=== PATIENT | female | born 1975 | race Caucasian/White ===

== ENCOUNTER 2020-05-21 08:55 | Outpatient (REF) | payer MEDICAID, SELFPAY ==
--- NOTE | 2020-05-21 10:35 | XR_ITS ---
EXAMINATION: XR CHEST CLINICAL INFORMATION: Other specified abnormal immunologic old findings; R76.8 COMPARISON: Chest radiographs 04/10/2019 TECHNIQUE: 2 views of the chest were obtained. FINDINGS: There is no airspace consolidation or definite groundglass opacity. No pleural reaction or effusion. The costophrenic sulci are clear. The heart is normal in size. The vascularity is normal. The hilar and mediastinal contours are unremarkable. There is mild curvature thoracic spine. IMPRESSION: Lungs clear. No acute intrathoracic disease.
[2020-05-21 12:08] LABS: C Reactive Protein 3.49 mg/dL (< or = 0.50)
[2020-05-21 12:14] LABS: Glucose Urine UA NEG (NEG); Leukocyte Esterase Urine NEG (NEG); Nitrite Urine NEG (NEG); Urine Blood NEG (NEG); Urine Ketones NEG (NEG); Urine Protein NEG (NEG-TRACE)
[2020-05-21 12:16] LABS: Appearance Urine HAZY; Color Urine YELLOW
[2020-05-21 12:23] LABS: Erythrocyte Sedimentation Rate 44 MM/HR (0-20)
[2020-05-21 12:36] LABS: Bacteria Urine 4+ /LPF; RBC Urine 0 /HPF (0); Squamous Epithelial Cell Urine 3+ /LPF; WBC Urine 0-2 /HPF (0-4)
[2020-05-22 13:32] LABS: Complement C3 174 mg/dL (83-193)
[2020-05-22 21:32] LABS: Thyroid Peroxidase Antibodies <1 IU/mL (<9)
[2020-05-24 13:57] LABS: Anti DNA DS Antibody 1 IU/mL; Antibody to SS-A Antigen <1.0 NEG AI (<1.0 NEG); Antibody to SS-B Antigen <1.0 NEG AI (<1.0 NEG); Myeloperoxidase Antibody <1.0 AI; Proteinase 3 PR3 Antibodies <1.0 AI; SM/Ribonucleoprotein Ab <1.0 NEG AI (<1.0 NEG); Smith Protein <1.0 NEG AI (<1.0 NEG)
[2020-05-27 19:07] LABS: Thyroglobulin Antibodies <1 IU/mL (< or = 1)
== END 2020-05-21 08:56 | disposition home or self-care (01) ==
LOC: HO.LAB 08:55
PROVIDERS: PCP Internal Medicine; Referring Provider Internal Medicine; Visit Provider Student in an Organized Health Care Education/Training Program
DX: M31.0 Hypersensitivity angiitis (principal); M17.12 Unilateral primary osteoarthritis, left knee; R76.8 Other specified abnormal immunological findings in serum
CPT/HCPCS: 36415; 71046; 81001; 85652; 86021; 86140; 86160; 86225; 86235; 86376; 86800; 99214

== ENCOUNTER → 2020-05-30 13:00 | Outpatient (BNVA) | payer MEDICAID, SELFPAY | PROVIDERS: PCP Internal Medicine; Referring Provider Internal Medicine; Visit Provider Internal Medicine Endocrinology, Diabetes & Metabolism | DX: E28.2 Polycystic ovarian syndrome (principal); E66.9 Obesity, unspecified; E55.9 Vitamin D deficiency, unspecified | CPT/HCPCS: 99214 ==

== ENCOUNTER → 2020-06-05 13:16 | Outpatient (BNVA) | payer MEDICAID, SELFPAY | PROVIDERS: PCP Internal Medicine; Referring Provider Internal Medicine; Visit Provider Internal Medicine | DX: J45.909 Unspecified asthma, uncomplicated (principal); R07.9 Chest pain, unspecified; Z79.899 Other long term (current) drug therapy | CPT/HCPCS: 99212 ==

== ENCOUNTER 2020-06-06 12:52 | Outpatient (REF) | payer MEDICAID, SELFPAY ==
--- NOTE | 2020-06-06 13:43 | XR_ITS ---
EXAMINATION: XR CHEST CLINICAL INFORMATION: Chest pain. COMPARISON: None TECHNIQUE: 2 views of the chest were obtained. FINDINGS: No significant abnormality is noted involving the heart, lungs, mediastinum, bony thorax or soft tissues. XR/XR chest 2V IMPRESSION: Unremarkable chest examination.
[2020-06-06 14:32] LABS: Estimated Average Glucose 97 mg/dL
[2020-06-06 14:41] LABS: Alanine Aminotransferase 13 U/L (0-31); Albumin Level 4.2 g/dL (3.5-5.0); Alkaline Phosphatase 103 U/L (39-117); Anion Gap 14 (12-20); Aspartate Amino Transferase 16 U/L (5-31); Bilirubin Total 0.6 mg/dL (0.0-1.0); Blood Urea Nitrogen 16 mg/dL (9-16); Calcium 9.8 mg/dL (8.4-10.2); Carbon Dioxide 30 mmol/L (22-29); Chloride 97 mmol/L (96-108); Cholesterol 202 mg/dL; Estimated Glomerular Filt Rate > 60; Glucose Fasting 87 mg/dL (60-99); HDL Cholesterol 45 mg/dL; LDL Cholesterol Calculated 108 mg/dl; Potassium 3.8 mmol/l (3.3-5.1); Sodium 137 mmol/L (135-145); Total Protein 7.1 g/dL (6.5-8.0); Triglycerides 247 mg/dL
[2020-06-07 11:37] LABS: DHEA Sulfate 75 mcg/dL (19-231)
[2020-06-09 13:16] LABS: Insulin Level Total 12.9 uIU/mL
[2020-06-12 14:01] LABS: Testosterone, Free 1.1 pg/mL (0.1-6.4); Testosterone, Total 10 ng/dL (2-45)
== END 2020-06-06 12:53 | disposition home or self-care (01) ==
LOC: HO.LAB 12:52
PROVIDERS: Absent Provider Internal Medicine Endocrinology, Diabetes & Metabolism; PCP Internal Medicine; Referring Provider Internal Medicine; Visit Provider Student in an Organized Health Care Education/Training Program
DX: R07.9 Chest pain, unspecified (principal); E28.2 Polycystic ovarian syndrome; I77.6 Arteritis, unspecified; M31.0 Hypersensitivity angiitis; R76.8 Other specified abnormal immunological findings in serum
CPT/HCPCS: 71046; 80053; 80061; 82627; 83036; 83525; 84402; 84403; 99212

== ENCOUNTER → 2020-09-03 13:30 | Outpatient (BNVA) | payer MEDICAID, SELFPAY | PROVIDERS: PCP Internal Medicine; Visit Provider Internal Medicine | DX: Z76.89 Persons encountering health services in other specified circumstances (principal) ==

== ENCOUNTER 2020-09-20 10:04 | Outpatient (REF) | payer MEDICAID, SELFPAY ==
[2020-09-20 10:45] LABS: MANUAL DIFF FLAG NO
[2020-09-20 10:46] LABS: Basophils Absolute Auto 0.1 X10*3/uL (0.0-0.2); Basophils Percent Auto 0.6 % (0-2); Eosinophils Absolute Auto 0.3 X10*3/uL (0.0-0.4); Eosinophils Percent Auto 2.3 % (0-4); Hematocrit 37.5 % (37-47); Hemoglobin 12.2 g/dl (12.0-16.0); Imm Gran Abs Auto 0.07 X10*3/uL (0.00-0.03); Imm Gran Pct Auto 0.5 % (0.0-0.4); Lymphocytes Absolute Auto 1.8 X10*3/uL (1.2-4.9); Mean Corpuscular HGB Conc 32.5 g/dl (31.0-35.0); Mean Platelet Volume 9.5 fL (9.4-12.3); Monocytes Absolute Auto 0.8 X10*3/uL (0.1-1.2); Monocytes Percent Auto 6.6 % (2-11); Neutrophils Absolute Auto 9.8 X10*3/uL (2.0-8.3); Platelet Count 383 X10*3/uL (160-400); Red Blood Count 4.36 X10*6/uL (4.20-5.50); Red Cell Distribution Width 15.1 % (11.0-16.0); White Blood Count 12.8 X10*3/uL (4.8-10.8)
[2020-09-20 10:53] LABS: Glucose Urine UA NEG (NEG); Leukocyte Esterase Urine NEG (NEG); Nitrite Urine NEG (NEG); Specific Gravity - Urine 1.025 (1.005-1.025); Urine Blood NEG (NEG); Urine Ketones NEG (NEG); Urine Protein NEG (NEG-TRACE)
[2020-09-20 10:54] LABS: Appearance Urine CLOUDY; Color Urine YELLOW
[2020-09-20 11:08] LABS: Alanine Aminotransferase 9 U/L (0-31); Albumin Level 4.2 g/dL (3.5-5.0); Alkaline Phosphatase 100 U/L (39-117); Anion Gap 14 (12-20); Aspartate Amino Transferase 13 U/L (5-31); Bilirubin Total 0.6 mg/dL (0.0-1.0); Blood Urea Nitrogen 23 mg/dL (9-16); C Reactive Protein 2.53 mg/dL (< or = 0.50); Calcium 9.3 mg/dL (8.4-10.2); Carbon Dioxide 31 mmol/L (22-29); Chloride 98 mmol/L (96-108); Estimated Glomerular Filt Rate > 60; Glucose Random 84 mg/dL (60-115); Potassium 3.5 mmol/L (3.3-5.1); Sodium 139 mmol/L (135-145); Total Protein 7.2 g/dL (6.5-8.0)
[2020-09-20 11:28] LABS: Erythrocyte Sedimentation Rate 40 MM/HR (0-20)
[2020-09-23 01:01] LABS: C. trachomatis RNA TMA NOT DETECTED (NOT DETECTED); N. gonorrhoeae RNA TMA NOT DETECTED (NOT DETECTED)
== END 2020-09-20 10:05 | disposition home or self-care (01) ==
LOC: HO.LAB 10:04
PROVIDERS: Absent Provider Student in an Organized Health Care Education/Training Program; PCP Internal Medicine; Visit Provider Nurse Practitioner Family
DX: M31.0 Hypersensitivity angiitis (principal); R30.0 Dysuria
CPT/HCPCS: 36415; 80053; 81003; 85025; 85652; 86140; 87491; 87591

== ENCOUNTER → 2020-10-28 15:54 | Outpatient (BNVA) | payer MEDICAID, SELFPAY | PROVIDERS: PCP Internal Medicine; Visit Provider Student in an Organized Health Care Education/Training Program | DX: M31.0 Hypersensitivity angiitis (principal); M54.9 Dorsalgia, unspecified; R76.8 Other specified abnormal immunological findings in serum | CPT/HCPCS: 99212 ==

== ENCOUNTER 2020-11-07 15:04 | Outpatient (REF) | payer MEDICAID, SELFPAY ==
--- NOTE | ~2020-11-07 | XR_ITS ---
EXAMINATION: LUMBAR AND THORACIC SPINE. CLINICAL INFORMATION: Dorsalis upper COMPARISON: None TECHNIQUE: 3 views thoracic spine. 3 views lumbar spine. FINDINGS: DORSAL SPINE: There is normal thoracic kyphosis. There is minimal levoscoliosis of mid to lower dorsal spine. The vertebral heights, alignment and disc heights are normal. No visible acute fracture, dislocation or lytic process seen. The paravertebral soft tissues are normal. LUMBAR SPINE: There is normal lumbar lordosis. The vertebral heights, alignment and disc heights are normal. No visible acute fracture, dislocation or lytic process seen. The soft tissues are unremarkable. The SI joints are symmetrical and normal. XR/XR thoracic spine 2V IMPRESSION: Unremarkable lumbar spine exam. Minimal levoscoliosis mid to lower dorsal spine.
--- NOTE | ~2020-11-07 | XR_ITS ---
EXAMINATION: LUMBAR AND THORACIC SPINE. CLINICAL INFORMATION: Dorsalis upper COMPARISON: None TECHNIQUE: 3 views thoracic spine. 3 views lumbar spine. FINDINGS: DORSAL SPINE: There is normal thoracic kyphosis. There is minimal levoscoliosis of mid to lower dorsal spine. The vertebral heights, alignment and disc heights are normal. No visible acute fracture, dislocation or lytic process seen. The paravertebral soft tissues are normal. LUMBAR SPINE: There is normal lumbar lordosis. The vertebral heights, alignment and disc heights are normal. No visible acute fracture, dislocation or lytic process seen. The soft tissues are unremarkable. The SI joints are symmetrical and normal. XR/XR lumbar spine 2-3V IMPRESSION: Unremarkable lumbar spine exam. Minimal levoscoliosis mid to lower dorsal spine.
--- NOTE | ~2020-11-07 | US_ITS ---
EXAMINATION: US RETROPERITONEAL LIMITED (RENAL ONLY) CLINICAL INFORMATION: Dorsalgia, unspecified. COMPARISON: CT abdomen and pelvis without with contrast dated 07/20/2019. Ultrasound abdomen complete dated 07/16/2015. TECHNIQUE: Real-time imaging of the kidneys. FINDINGS: RIGHT KIDNEY: 9.0 x 4.5 x 4.6 cm (SAG x AP x TRV). The kidney is normal in size, contour, and echogenicity. Renal cortical thickness is normal. No calculi or focal parenchymal lesions. No hydronephrosis. LEFT KIDNEY: 9.9 x 4.5 x 4.7 cm (SAG x AP x TRV). The kidney is normal in size, contour, and echogenicity. Renal cortical thickness is normal. No calculi or focal parenchymal lesions. No hydronephrosis. US/US renal BI IMPRESSION: Normal kidneys.
[2020-11-07 17:51] LABS: MANUAL DIFF FLAG NO
[2020-11-07 17:53] LABS: Basophils Absolute Auto 0.1 X10*3/uL (0.0-0.2); Basophils Percent Auto 0.6 % (0-2); Eosinophils Absolute Auto 0.2 X10*3/uL (0.0-0.4); Eosinophils Percent Auto 2.2 % (0-4); Hematocrit 36.2 % (37-47); Hemoglobin 11.7 g/dl (12.0-16.0); Imm Gran Abs Auto 0.07 X10*3/uL (0.00-0.03); Imm Gran Pct Auto 0.6 % (0.0-0.4); Lymphocytes Absolute Auto 2.2 X10*3/uL (1.2-4.9); Lymphocytes Percent Auto 20.3 % (20-40); Mean Corpuscular HGB Conc 32.3 g/dl (31.0-35.0); Mean Corpuscular Hemoglobin 27.9 pg (27.0-33.0); Mean Corpuscular Volume 86.4 fL (80-98); Mean Platelet Volume 9.8 fL (9.4-12.3); Monocytes Absolute Auto 0.8 X10*3/uL (0.1-1.2); Monocytes Percent Auto 7.1 % (2-11); Neutrophils Absolute Auto 7.5 X10*3/uL (2.0-8.3); Neutrophils Percent Auto 69.2 % (45-73); Platelet Count 388 X10*3/uL (160-400); Red Blood Count 4.19 X10*6/uL (4.20-5.50); Red Cell Distribution Width 14.9 % (11.0-16.0); White Blood Count 10.9 X10*3/uL (4.8-10.8)
[2020-11-07 18:14] LABS: Glucose Urine UA NEG (NEG); Leukocyte Esterase Urine NEG (NEG); Nitrite Urine NEG (NEG); PH 6.5 (5.0-8.0); Urine Blood NEG (NEG); Urine Ketones NEG (NEG); Urine Protein NEG (NEG-TRACE)
[2020-11-07 18:20] LABS: Alanine Aminotransferase 12 U/L (0-31); Albumin Level 4.2 g/dL (3.5-5.0); Alkaline Phosphatase 98 U/L (39-117); Anion Gap 13 (12-20); Aspartate Amino Transferase 12 U/L (5-31); Bilirubin Total 0.5 mg/dL (0.0-1.0); Blood Urea Nitrogen 19 mg/dL (9-16); C Reactive Protein 2.24 mg/dL (< or = 0.50); Calcium 9.2 mg/dL (8.4-10.2); Carbon Dioxide 33 mmol/L (22-29); Chloride 97 mmol/L (96-108); Estimated Glomerular Filt Rate > 60; Glucose Random 78 mg/dL (60-115); Potassium 3.8 mmol/L (3.3-5.1); Sodium 139 mmol/L (135-145); Total Protein 7.4 g/dL (6.5-8.0)
[2020-11-07 18:30] LABS: Appearance Urine CLEAR; Color Urine YELLOW
[2020-11-07 18:32] LABS: Bacteria Urine 3+ /LPF; RBC Urine 0 /HPF (0); Squamous Epithelial Cell Urine 3+ /LPF
[2020-11-07 18:38] LABS: Erythrocyte Sedimentation Rate 60 MM/HR (0-20)
== END 2020-11-07 15:05 | disposition home or self-care (01) ==
LOC: HO.US 15:04
PROVIDERS: PCP Internal Medicine; Visit Provider Student in an Organized Health Care Education/Training Program
DX: M54.9 Dorsalgia, unspecified (principal); M31.0 Hypersensitivity angiitis
CPT/HCPCS: 36415; 72070; 72100; 76775; 80053; 81001; 85025; 85652; 86140

== ENCOUNTER → 2020-11-28 12:39 | Outpatient (BNVA) | payer MEDICAID, SELFPAY | PROVIDERS: PCP Internal Medicine; Visit Provider Internal Medicine Endocrinology, Diabetes & Metabolism | DX: E28.2 Polycystic ovarian syndrome (principal); E55.9 Vitamin D deficiency, unspecified; E66.01 Morbid (severe) obesity due to excess calories | CPT/HCPCS: 99212 ==

== ENCOUNTER 2020-12-25 19:19 | Emergency (ER) | payer MEDICAID, SELFPAY ==
[2020-12-25 19:37] VITALS: BP 100/44; PULSE 95; RESP 16; TEMP 37; O2SAT 100; BMI 43.4
[2020-12-25 20:52] VITALS: BP 128/53; PULSE 89; RESP 18; TEMP 37.4; O2SAT 99
--- NOTE | 2020-12-25 21:49 | PC.NURSE ---
COVID AND STREP SWABS OBTAINED AND SENT TO LAB FOR PROCESSING. PT GIVEN ICE CHIPS PER REQUEST. RESTING IN BED SKIN PWD RESPIRATIONS EVEN UNLABORED WITH SPORADIC PRODUCTIVE COUGH, AWAITING RESULTS.
[2020-12-25 22:06] LABS: IDNOW Serial# 9DD0AD1C; Strep A Nucleic Acid Negative (Negative)
[2020-12-25 22:07] LABS: COVID-19 Test Negative (Negative)
--- NOTE | 2020-12-25 22:38 | ED.GENADULT ---
HPI - General Adult General Chief complaint: General Medical Stated complaint: Sore throat/Body aches Time Seen by Provider: 12/25/20 21:14 Source: patient Mode of arrival: ambulatory History of Present Illness HPI narrative: 45-year-old female with history of asthma presents with worsening nasal congestion with sore throat and cough without associated fevers, chills, GI or symptoms. Patient denies any shortness of breath, chest pain/palpitations. She states that she uses Claritin and Zyrtec daily and uses a combination of Atrovent/Flovent/Spiriva. Related Data Home Medications Medication Instructions Recorded Confirmed acetaminophen 650 mg 1,300 mg PO Q12H 05/21/20 11/28/20 tablet,extended release cetirizine 10 mg tablet 10 mg PO DAILY 05/21/20 11/28/20 clonidine HCl 0.1 mg tablet 0.1 mg PO BEDTIME 05/21/20 11/28/20 cyclobenzaprine 10 mg tablet 10 mg PO TID 05/21/20 11/28/20 hydrochlorothiazide 25 mg tablet 25 mg PO DAILY 05/21/20 11/28/20 paroxetine HCl 40 mg tablet 40 mg PO DAILY 05/21/20 11/28/20 tiotropium bromide 2.5 2 puff INHALATION DAILY 05/21/20 11/28/20 mcg/actuation mist for inhalation valacyclovir 1 gram tablet 1,000 mg PO DAILY 05/21/20 11/28/20 zolpidem 10 mg tablet 10 mg PO BEDTIME PRN 05/21/20 11/28/20 losartan 50 mg tablet 50 mg PO DAILY 05/30/20 11/28/20 topiramate 25 mg tablet 25 mg PO DAILY 05/30/20 11/28/20 loratadine 10 mg capsule 10 mg PO DAILY 06/05/20 11/28/20 oxycodone 5 mg tablet 5 mg PO Q6H PRN 06/05/20 11/28/20 ipratropium bromide 17 2 puff INHALATION ONCE g 09/03/20 11/28/20 mcg/actuation HFA aerosol inhaler Previous Rx's Medication Instructions Recorded fluticasone propionate 110 2 puff INHALATION BID 30 Days #12 g 06/05/20 mcg/actuation HFA aerosol inhaler oxybutynin chloride 15 mg 15 mg PO DAILY #28 tab 07/23/20 tablet,extended release 24 hr gabapentin 400 mg capsule 400 mg PO DAILY #28 cap 10/15/20 cholecalciferol (vitamin D3) 50 50 mcg PO DAILY 30 Days #30 cap 10/16/20 mcg (2,000 unit) capsule montelukast 10 mg tablet 10 mg PO DAILY #30 tab 11/13/20 prednisone 10 mg tablet See Rx Instructions PO DAILY #50 11/26/20 tab liraglutide (weight loss) 3 mg/0.5 3 mg SUBCUT DAILY 30 Days #15 ml 11/28/20 mL (18 mg/3 mL) subcut pen injector pen needle, diabetic 32 gauge x #50 ea 11/28/20 pen needle, diabetic 32 gauge x #50 ea 11/28/20 prednisone 40 mg PO DAILY 4 Days #8 tab 12/25/20 Allergies Allergy/AdvReac Type Severity Reaction Status Date / Time albuterol Allergy Intermediate swelling Verified 10/28/20 15:59 tramadol Allergy Intermediate swelling Verified 10/28/20 15:59 buspirone [From BuSpar] Allergy Mild rash Verified 10/28/20 15:59 lamotrigine [From Lamictal] Allergy Mild Unknown Verified 10/28/20 15:59 naproxen Allergy Unknown anaphylaxis Verified 10/28/20 15:59 NSAIDS (Non-Steroidal Allergy Unknown ANAPHYLAXIS Verified 10/28/20 15:59 Anti-Inflamma [NSAIDS (NON-STEROIDAL ANTI-INFLAMMA] Penicillins [PENICILLINS] Allergy Unknown ANAPHYLAXIS Verified 10/28/20 15:59 Review of Systems Review of Systems: Pertinent positives and negatives as stated in HPI 10 point review of systems is otherwise negative. [facility] Past Medical History Source: nursing notes reviewed Medical History Allergic rhinitis Asthma Cough Morbid obesity Obesity (BMI 30-39.9) PCOS (polycystic ovarian syndrome) Vitamin D deficiency Surgical History History of bladder surgery Hx laparoscopic cholecystectomy Hx of section Hx of dilation and curettage Hx of hysterectomy Hx of tooth extraction Family History Family History Father Heart disease Mother Diabetes mellitus Raynaud disease Paternal Grandfather Diabetes mellitus Paternal Uncle Diabetes mellitus Social History Social History Household Members: Family Housing: House Alcohol intake: never Smoking Status: Never smoker Second Hand Smoke Exposure: No Use of substances other than those prescribed or required for medical reasons: No Advance Directives: No Advance Directives Information Provided: No Patient : No Physical Exam Vital Signs: Vital Signs: Last Vital Signs Temp 99.4 F 12/25/20 20:52 Pulse 89 12/25/20 20:52 Resp 18 12/25/20 20:52 BP 128/53 L 12/25/20 20:52 Pulse Ox 99 12/25/20 20:52 Body Mass Index 43.4 VITAL SIGNS: Reviewed. GENERAL: Well developed, well nourished, in no acute distress. HEAD: Normocephalic/atraumatic EYES: PERRLA, EOMI EARS: Ext canals without abnormality, TMs mild bulging and non-erythematous NOSE: Nares patent bilateral OROPHARYNX: no oral lesions noted, posterior pharynx clear and non-erythematous without noted tonsillar enlargement/erythema/exudates NECK: Supple, no adenopathy LUNGS: Mild expiratory wheeze, otherwise good inspiratory effort, no tachypnea SpO2<99> CARDIOVASCULAR: Regular rate and rhythm without noted murmurs ABDOMEN: Soft, non-tender, non-distended with bowel sounds. Course Course Course Narrative: 45-year-old female with history and clinical presentation most consistent with allergic rhinitis and subsequent postnasal drip with cough. Review of rapid strep and COVID-19 are negative and patient will be treated with a short course of steroids with initial dose given here in the emergency room. Also recommended that patient initiate Flonase in conjunction with her Claritin. Patient is allergic to albuterol and Atrovent is not available for ordering. Medical Decision Making Lab Data Labs: Lab Results 12/25/20 12/25/20 Range/Units 21:44 21:44 COVID-19 (NICOLE) Negative (Negative) COVID-19 Clin Com See Note S. pyogenes GrpA PALOMA Negative (Negative) Discharge Plan Discharge Clinical Impression: Asthma Patient Disposition: Home, Self-Care Instructions: Asthma (ED), Allergies (ED), Postnasal Drip (DC) Additional Instructions: 1. Please resume all home medications as prescribed. 2. Please follow-up with your primary care provider in the next 2-3 days for re-evaluation. Return to the emergency room for any acute worsening of your symptoms. Prescriptions: New prednisone 20 mg tablet 40 mg PO DAILY 4 Days Qty: 8 RF: 0 No Action oxybutynin chloride 15 mg tablet extended release 24hr 15 mg PO DAILY Qty: 28 RF: 6 gabapentin 400 mg capsule 400 mg PO DAILY Qty: 28 RF: 6 cholecalciferol (vitamin D3) 50 mcg (2,000 unit) capsule 50 mcg PO DAILY 30 Days Qty: 30 RF: 3 montelukast [Singulair] 10 mg tablet 10 mg PO DAILY Qty: 30 RF: 3 prednisone 10 mg tablet See Rx Instructions PO DAILY Qty: 50 RF: 0 topiramate [Topamax] 25 mg tablet 25 mg PO DAILY RF: 0 losartan 50 mg tablet 50 mg PO DAILY RF: 0 oxycodone 5 mg tablet 5 mg PO Q6H PRNRF: 0 loratadine 10 mg capsule 10 mg PO DAILY RF: 0 Flovent HFA 110 mcg/actuation HFA aerosol inhaler 2 puff inhalation BID 30 Days Qty: 12 RF: 5 (DME) pen needle, diabetic [BD Yesy 2nd Gen Pen Needle] 32 gauge x 5/32 needle See Rx Instructions .MEDSUPPLY Qty: 50 RF: 4 (DME) pen needle, diabetic [BD Yesy 2nd Gen Pen Needle] 32 gauge x 5/32 needle See Rx Instructions .MEDSUPPLY Qty: 50 RF: 4 Saxenda 3 mg/0.5 mL (18 mg/3 mL) pen injector 3 mg subcut DAILY 30 Days Qty: 15 RF: 6 Spiriva Respimat 2.5 mcg/actuation mist 2 puff inhalation DAILY RF: 0 cetirizine [Zyrtec] 10 mg tablet 10 mg PO DAILY RF: 0 paroxetine HCl [Paxil] 40 mg tablet 40 mg PO DAILY RF: 0 acetaminophen [Tylenol 8 Hour] 650 mg tablet extended release 1,300 mg PO Q12H RF: 0 clonidine HCl 0.1 mg tablet 0.1 mg PO BEDTIME RF: 0 zolpidem 10 mg tablet 10 mg PO BEDTIME PRNRF: 0 hydrochlorothiazide 25 mg tablet 25 mg PO DAILY RF: 0 cyclobenzaprine 10 mg tablet 10 mg PO TID RF: 0 valacyclovir [Valtrex] 1 gram tablet 1,000 mg PO DAILY RF: 0 Atrovent HFA 17 mcg/actuation HFA aerosol inhaler 2 puff inhalation ONCE RF: 0 Referrals: Aaron Carcamo MD [Primary Care Provider] - 2 days (Re-evaluation)
[2020-12-25] MEDS: predniSONE 10 MG TABLET 50 MG PO (23:36)
== END 2020-12-26 00:17 | disposition home or self-care (01) ==
PROVIDERS: Emergency Provider Student in an Organized Health Care Education/Training Program; PCP Internal Medicine
DX: J45.909 Unspecified asthma, uncomplicated (principal); Z20.822 Contact with and (suspected) exposure to COVID-19; J02.9 Acute pharyngitis, unspecified
CPT/HCPCS: 36415; 87635; 87651; 99284

== ENCOUNTER 2021-01-24 13:51 | Emergency (ER) | payer MEDICAID, SELFPAY ==
[2021-01-24 14:31] VITALS: BP 117/62; PULSE 96; RESP 16; TEMP 37; O2SAT 97; BMI 42.4
--- NOTE | 2021-01-24 16:27 | ED_ITS ---
HPI - Abdominal Pain General Chief Complaint: Abdominal Pain Stated Complaint: pain radiating from abd to back Time Seen by Provider: 01/24/21 16:27 Source: patient Mode of arrival: ambulatory Limitations: no limitations History of Present Illness HPI narrative: Patient has chronic back pain overweight with BMI of 42.4 on chronic pain management Percocet and Flexeril while at work patient lifted heavy container 2 days ago and since then complaining of increased pain the lower back and in the lower abdomen also no nausea no vomiting no diarrhea no urinary symptoms no fever chills no focal neurological deficit no numbness or tingling no urinary complaints, patient ambulatory Related Data Home Medications Medication Instructions Recorded Confirmed acetaminophen 650 mg 1,300 mg PO Q12H 05/21/20 11/28/20 tablet,extended release cetirizine 10 mg tablet 10 mg PO DAILY 05/21/20 11/28/20 clonidine HCl 0.1 mg tablet 0.1 mg PO BEDTIME 05/21/20 11/28/20 cyclobenzaprine 10 mg tablet 10 mg PO TID 05/21/20 11/28/20 hydrochlorothiazide 25 mg tablet 25 mg PO DAILY 05/21/20 11/28/20 paroxetine HCl 40 mg tablet 40 mg PO DAILY 05/21/20 11/28/20 valacyclovir 1 gram tablet 1,000 mg PO DAILY 05/21/20 11/28/20 zolpidem 10 mg tablet 10 mg PO BEDTIME PRN 05/21/20 11/28/20 losartan 50 mg tablet 50 mg PO DAILY 05/30/20 11/28/20 topiramate 25 mg tablet 25 mg PO DAILY 05/30/20 11/28/20 loratadine 10 mg capsule 10 mg PO DAILY 06/05/20 11/28/20 oxycodone 5 mg tablet 5 mg PO Q6H PRN 06/05/20 11/28/20 Previous Rx's Medication Instructions Recorded fluticasone propionate 110 2 puff INHALATION BID 30 Days #12 g 06/05/20 mcg/actuation HFA aerosol inhaler oxybutynin chloride 15 mg 15 mg PO DAILY #28 tab 07/23/20 tablet,extended release 24 hr gabapentin 400 mg capsule 400 mg PO DAILY #28 cap 10/15/20 cholecalciferol (vitamin D3) 50 50 mcg PO DAILY 30 Days #30 cap 10/16/20 mcg (2,000 unit) capsule montelukast 10 mg tablet 10 mg PO DAILY #30 tab 11/13/20 prednisone 10 mg tablet See Rx Instructions PO DAILY #50 11/26/20 tab liraglutide (weight loss) 3 mg/0.5 3 mg SUBCUT DAILY 30 Days #15 ml 11/28/20 mL (18 mg/3 mL) subcut pen injector pen needle, diabetic 32 gauge x #50 ea 11/28/20 pen needle, diabetic 32 gauge x #50 ea 11/28/20 5/32 prednisone 40 mg PO DAILY 4 Days #8 tab 12/25/20 tiotropium bromide 2.5 1 puff PO BID #4 g 12/26/20 mcg/actuation mist for inhalation ipratropium bromide 17 2 puff PO TID #12.9 g 12/27/20 mcg/actuation HFA aerosol inhaler carisoprodol [Soma] 350 mg PO TID PRN #20 tab 01/24/21 Allergies Allergy/AdvReac Type Severity Reaction Status Date / Time albuterol Allergy Intermediate swelling Verified 10/28/20 15:59 tramadol Allergy Intermediate swelling Verified 10/28/20 15:59 buspirone [From BuSpar] Allergy Mild rash Verified 10/28/20 15:59 lamotrigine [From Lamictal] Allergy Mild Unknown Verified 10/28/20 15:59 naproxen Allergy Unknown anaphylaxis Verified 10/28/20 15:59 NSAIDS (Non-Steroidal Allergy Unknown ANAPHYLAXIS Verified 10/28/20 15:59 Anti-Inflamma [NSAIDS (NON-STEROIDAL ANTI-INFLAMMA] Penicillins [PENICILLINS] Allergy Unknown ANAPHYLAXIS Verified 10/28/20 15:59 Review of Systems Review of Systems Yes all other systems are reviewed and are negative Physical Exam Vital Signs: Vital Signs: Last Vital Signs Temp 98.6 F 01/24/21 14:31 Pulse 96 01/24/21 14:31 Resp 16 01/24/21 14:31 BP 117/62 01/24/21 14:31 Pulse Ox 97 01/24/21 14:31 Body Mass Index 42.4 Appearance: Alert. Oriented X3. No acute distress. Obese Eyes: PERRLA, No Nystagmus ENT: Pharynx normal. Oral Mucosa moist Neck: Normal inspection. Neck supple. CVS: Normal heart rate and rhythm. Pulses normal. Respiratory: No respiratory distress. Equal air entry bilateral, no wheezing/rales/rhonchi Abdomen: Soft and nontender. Bowel sounds are present, no mass palpable, no CVA tenderness Skin: Skin warm and dry. Normal skin color. Normal skin turgor. Extremities: No lower extremity edema. No calf tenderness diffuse tenderness in lumbar paraspinal area no focal spinal tenderness a SLR negative bilateral Neuro: Oriented X 3. No motor deficit. No sensory deficit.No cerebellar signs , cranial nerves II-XII intact MDM - Abdominal Pain MDM Narrative Medical decision making narrative: Patient with chronic back pain with BMI of 42 already on Percocet and Flexeril will give Soma advised her to follow with her PCP and advised weight reduction plan Discharge Plan Discharge Clinical Impression: Back pain Qualifiers: Back pain location: low back pain Chronicity: chronic Back pain laterality: bilateral Sciatica presence: without sciatica Qualified Code(s): M54.5 - Low back pain Patient Disposition: Home, Self-Care Instructions: Chronic Back Pain (DC) Additional Instructions: take Pain medication as prescribed along with medication prescribed by her PCP and follow-up with environmental services specialist Prescriptions: New carisoprodol [Soma] 350 mg tablet 350 mg PO TID PRN (Reason: muscle pain) Qty: 20 RF: 0 No Action oxybutynin chloride 15 mg tablet extended release 24hr 15 mg PO DAILY Qty: 28 RF: 6 gabapentin 400 mg capsule 400 mg PO DAILY Qty: 28 RF: 6 cholecalciferol (vitamin D3) 50 mcg (2,000 unit) capsule 50 mcg PO DAILY 30 Days Qty: 30 RF: 3 montelukast [Singulair] 10 mg tablet 10 mg PO DAILY Qty: 30 RF: 3 prednisone 10 mg tablet See Rx Instructions PO DAILY Qty: 50 RF: 0 tiotropium bromide [Spiriva Respimat] 2.5 mcg/actuation mist 1 puff PO BID Qty: 4 RF: 3 ipratropium bromide [Atrovent HFA] 17 mcg/actuation HFA aerosol inhaler 2 puff PO TID Qty: 12.9 RF: 6 prednisone 20 mg tablet 40 mg PO DAILY 4 Days Qty: 8 RF: 0 topiramate [Topamax] 25 mg tablet 25 mg PO DAILY RF: 0 losartan 50 mg tablet 50 mg PO DAILY RF: 0 oxycodone 5 mg tablet 5 mg PO Q6H PRNRF: 0 loratadine 10 mg capsule 10 mg PO DAILY RF: 0 Flovent HFA 110 mcg/actuation HFA aerosol inhaler 2 puff inhalation BID 30 Days Qty: 12 RF: 5 (DME) pen needle, diabetic [BD Yesy 2nd Gen Pen Needle] 32 gauge x 5/32 needle See Rx Instructions .MEDSUPPLY Qty: 50 RF: 4 (DME) pen needle, diabetic [BD Yesy 2nd Gen Pen Needle] 32 gauge x 5/32 needle See Rx Instructions .MEDSUPPLY Qty: 50 RF: 4 Saxenda 3 mg/0.5 mL (18 mg/3 mL) pen injector 3 mg subcut DAILY 30 Days Qty: 15 RF: 6 cetirizine [Zyrtec] 10 mg tablet 10 mg PO DAILY RF: 0 paroxetine HCl [Paxil] 40 mg tablet 40 mg PO DAILY RF: 0 acetaminophen [Tylenol 8 Hour] 650 mg tablet extended release 1,300 mg PO Q12H RF: 0 clonidine HCl 0.1 mg tablet 0.1 mg PO BEDTIME RF: 0 zolpidem 10 mg tablet 10 mg PO BEDTIME PRNRF: 0 hydrochlorothiazide 25 mg tablet 25 mg PO DAILY RF: 0 cyclobenzaprine 10 mg tablet 10 mg PO TID RF: 0 valacyclovir [Valtrex] 1 gram tablet 1,000 mg PO DAILY RF: 0 Interventions: ED Discharge Assessment Last Done: 01/24/21 16:54 Discharge Date/Time: 01/24/21 16:54 [facility] Past Medical History Medical History Allergic rhinitis Asthma Cough Morbid obesity Obesity (BMI 30-39.9) PCOS (polycystic ovarian syndrome) Vitamin D deficiency Surgical History History of bladder surgery Hx laparoscopic cholecystectomy Hx of section Hx of dilation and curettage Hx of hysterectomy Hx of tooth extraction Family History Family History Father Heart disease Mother Diabetes mellitus Raynaud disease Paternal Grandfather Diabetes mellitus Paternal Uncle Diabetes mellitus Social History Social History Household Members: Family Housing: House Alcohol intake: never Second Hand Smoke Exposure: No Advance Directives: No Advance Directives Information Provided: Yes Patient : No
== END 2021-01-24 16:54 | disposition home or self-care (01) ==
PROVIDERS: Emergency Provider Internal Medicine; PCP Internal Medicine
DX: G89.29 Other chronic pain (principal); M54.5 Low back pain; E66.3 Overweight; Z68.42 Body mass index [BMI] 45.0-49.9, adult
CPT/HCPCS: 99283

== ENCOUNTER → 2021-02-03 15:47 | Outpatient (BNVA) | payer MEDICAID, SELFPAY | PROVIDERS: PCP Internal Medicine; Visit Provider Student in an Organized Health Care Education/Training Program | DX: M31.0 Hypersensitivity angiitis (principal); M54.5 Low back pain; G89.29 Other chronic pain | CPT/HCPCS: 99212 ==

== ENCOUNTER 2021-02-04 16:26 | Emergency (ER) | payer MEDICAID, SELFPAY ==
--- NOTE | ~2021-02-04 | CT_ITS ---
EXAMINATION: CT ABDOMEN AND PELVIS WITH CONTRAST CLINICAL INFORMATION: Abdominal pain. Distention. COMPARISON: CT scan pelvis July 20, 2019 TECHNIQUE: Multidetector volumetric images were obtained from the superior aspect of the liver through the pubic symphysis following administration 85 mL of Omnipaque 350 intravenous contrast. Sagittal and coronal reformatted images were obtained on the technologist's workstation. Oral contrast: No This CT examination was performed using dose optimization techniques as appropriate, variously including the following: *Automated exposure control *Adjustment of mA and/or kV according to patient size (this includes techniques or standardized protocols for targeted exams where dose is matched to indication/reason for exam; i.e. extremities or head) *Use of iterative reconstruction technique DLP: 794 mGy-cm FINDINGS: LUNG BASES: The visualized lung bases are unremarkable. LIVER, GALLBLADDER, AND BILIARY TREE: The liver is normal in size, shape, and attenuation. No focal hepatic lesion or biliary ductal dilatation is present. Status post cholecystectomy. PANCREAS: Unremarkable. SPLEEN: Unremarkable. ADRENAL GLANDS: Unremarkable. KIDNEYS AND URETERS: The kidneys are normal in size, shape, and attenuation. No hydronephrosis, hydroureter, or calculi seen. No perinephric stranding. BLADDER: Unremarkable. GASTROINTESTINAL TRACT: There are scattered flocculated dense contrast opacities in the stomach and proximal small bowel loops. No acute change of the bowel. No bowel obstruction. No bowel wall thickening or edema. Moderate volume of stool throughout the colon. The appendix is normal. ABDOMINAL WALL: Fat-containing umbilical hernia measuring 2.5 cm transverse. LYMPH NODES: Normal. VASCULAR: Unremarkable. PELVIC VISCERA: Status post hysterectomy. OSSEOUS STRUCTURES: Unremarkable. CT/CT abdomen pelvis w con IMPRESSION: No acute abnormality CT scan abdomen and pelvis.
[2021-02-04 17:08] VITALS: BP 120/60; PULSE 80; RESP 18; TEMP 36.5; O2SAT 98; BMI 42.4
[2021-02-04 17:42] LABS: MANUAL DIFF FLAG NO
[2021-02-04 17:44] LABS: Glucose Urine UA NEG (NEG); Leukocyte Esterase Urine NEG (NEG); Nitrite Urine NEG (NEG); Specific Gravity - Urine 1.025 (1.005-1.025); Urine Blood NEG (NEG); Urine Ketones NEG (NEG); Urine Protein NEG (NEG-TRACE)
[2021-02-04 17:47] LABS: Appearance Urine CLEAR; Color Urine YELLOW
[2021-02-04 17:57] LABS: Basophils Absolute Auto 0.1 X10*3/uL (0.0-0.2); Basophils Percent Auto 0.9 % (0-2); Eosinophils Absolute Auto 0.3 X10*3/uL (0.0-0.4); Eosinophils Percent Auto 1.7 % (0-4); Hematocrit 35.8 % (37-47); Hemoglobin 11.9 g/dl (12.0-16.0); Imm Gran Abs Auto 0.08 X10*3/uL (0.00-0.03); Imm Gran Pct Auto 0.5 % (0.0-0.4); Lymphocytes Absolute Auto 2.6 X10*3/uL (1.2-4.9); Lymphocytes Percent Auto 15.8 % (20-40); Mean Corpuscular HGB Conc 33.2 g/dl (31.0-35.0); Mean Corpuscular Hemoglobin 28.2 pg (27.0-33.0); Mean Corpuscular Volume 84.8 fL (80-98); Mean Platelet Volume 9.7 fL (9.4-12.3); Monocytes Absolute Auto 1.2 X10*3/uL (0.1-1.2); Monocytes Percent Auto 7.3 % (2-11); Neutrophils Absolute Auto 11.9 X10*3/uL (2.0-8.3); Neutrophils Percent Auto 73.8 % (45-73); Platelet Count 411 X10*3/uL (160-400); Red Blood Count 4.22 X10*6/uL (4.20-5.50); Red Cell Distribution Width 15.6 % (11.0-16.0); White Blood Count 16.1 X10*3/uL (4.8-10.8)
[2021-02-04 18:09] LABS: Bacteria Urine TRACE /LPF; Mucus Urine 3+ /LPF; RBC Urine 0 /HPF (0); Squamous Epithelial Cell Urine 2+ /LPF; WBC Urine 0 /HPF (0-4)
[2021-02-04 18:10] LABS: Alanine Aminotransferase 13 U/L (0-31); Albumin Level 4.5 g/dL (3.5-5.0); Alkaline Phosphatase 98 U/L (39-117); Anion Gap 16 (12-20); Aspartate Amino Transferase 15 U/L (5-31); Bilirubin Direct < 0.2 mg/dL (0.0-0.5); Bilirubin Total 0.3 mg/dL (0.0-1.0); Blood Urea Nitrogen 13 mg/dL (9-16); Calcium 9.8 mg/dL (8.4-10.2); Carbon Dioxide 25 mmol/L (22-29); Chloride 103 mmol/L (96-108); Creatinine Clr Calc Pharmacy 62.1; Estimated Glomerular Filt Rate 50; Glucose Random 87 mg/dL (60-115); Potassium 3.5 mmol/L (3.3-5.1); Sodium 140 mmol/L (135-145); Total Protein 7.6 g/dL (6.5-8.0)
[2021-02-04 20:07] VITALS: BP 108/56; PULSE 99; RESP 24; TEMP 36.4; O2SAT 100
--- NOTE | 2021-02-04 21:08 | ED_ITS ---
HPI - Abdominal Pain General Chief Complaint: Abdominal Pain Stated Complaint: Abdominal pain Time Seen by Provider: 02/04/21 22:00 Source: patient Mode of arrival: ambulatory Limitations: no limitations History of Present Illness HPI narrative: 45-year-old female presents with abdominal pain. This is her 2nd presentation this week for similar circumstances. States the pain is diffuse, and that she is unable to get comfortable. She does not report any fevers or chills, chest pain or pressure, palpitations, shortness of breath, shortness of breath on exertion, abdominal distention, dysuria, hematuria, melen a, hematochezia, constipation, diarrhea, or edema. MD elicited complaint: abdominal pain Onset (ago): week(s) ( One) Pain Consistency: constant Location: diffuse Severity: severe Pain scale (0-10): 10 Quality: cramping and aching Exacerbating factors: eating and movement Relieving factors: nothing Associated symptoms: denies other symptoms Treatments prior to arrival: prescription analgesics Related Data Home Medications Medication Instructions Recorded Confirmed acetaminophen 650 mg 1,300 mg PO Q12H 05/21/20 11/28/20 tablet,extended release cetirizine 10 mg tablet 10 mg PO DAILY 05/21/20 11/28/20 clonidine HCl 0.1 mg tablet 0.1 mg PO BEDTIME 05/21/20 11/28/20 cyclobenzaprine 10 mg tablet 10 mg PO TID 05/21/20 11/28/20 hydrochlorothiazide 25 mg tablet 25 mg PO DAILY 05/21/20 11/28/20 paroxetine HCl 40 mg tablet 40 mg PO DAILY 05/21/20 11/28/20 valacyclovir 1 gram tablet 1,000 mg PO DAILY 05/21/20 11/28/20 zolpidem 10 mg tablet 10 mg PO BEDTIME PRN 05/21/20 11/28/20 losartan 50 mg tablet 50 mg PO DAILY 05/30/20 11/28/20 topiramate 25 mg tablet 25 mg PO DAILY 05/30/20 11/28/20 loratadine 10 mg capsule 10 mg PO DAILY 06/05/20 11/28/20 oxycodone 5 mg tablet 5 mg PO Q6H PRN 06/05/20 11/28/20 Previous Rx's Medication Instructions Recorded fluticasone propionate 110 2 puff INHALATION BID 30 Days #12 g 06/05/20 mcg/actuation HFA aerosol inhaler oxybutynin chloride 15 mg 15 mg PO DAILY #28 tab 07/23/20 tablet,extended release 24 hr gabapentin 400 mg capsule 400 mg PO DAILY #28 cap 10/15/20 cholecalciferol (vitamin D3) 50 50 mcg PO DAILY 30 Days #30 cap 10/16/20 mcg (2,000 unit) capsule montelukast 10 mg tablet 10 mg PO DAILY #30 tab 11/13/20 prednisone 10 mg tablet See Rx Instructions PO DAILY #50 11/26/20 tab liraglutide (weight loss) 3 mg/0.5 3 mg SUBCUT DAILY 30 Days #15 ml 11/28/20 mL (18 mg/3 mL) subcut pen injector pen needle, diabetic 32 gauge x #50 ea 11/28/20 pen needle, diabetic 32 gauge x #50 ea 11/28/20 prednisone 40 mg PO DAILY 4 Days #8 tab 12/25/20 tiotropium bromide 2.5 1 puff PO BID #4 g 12/26/20 mcg/actuation mist for inhalation ipratropium bromide 17 2 puff PO TID #12.9 g 12/27/20 mcg/actuation HFA aerosol inhaler carisoprodol [Soma] 350 mg PO TID PRN #20 tab 01/24/21 cefuroxime axetil 500 mg PO Q12H 10 Days #20 tab 02/05/21 dicyclomine 20 mg PO TID PRN #20 tab 02/05/21 metronidazole [Flagyl] 500 mg PO Q12H 10 Days #20 tab 02/05/21 Allergies Allergy/AdvReac Type Severity Reaction Status Date / Time albuterol Allergy Intermediate swelling Verified 02/03/21 15:53 tramadol Allergy Intermediate swelling Verified 02/03/21 15:53 buspirone [From BuSpar] Allergy Mild rash Verified 02/03/21 15:53 lamotrigine [From Lamictal] Allergy Mild Unknown Verified 02/03/21 15:53 naproxen Allergy Unknown anaphylaxis Verified 02/03/21 15:53 NSAIDS (Non-Steroidal Allergy Unknown ANAPHYLAXIS Verified 02/03/21 15:53 Anti-Inflamma [NSAIDS (NON-STEROIDAL ANTI-INFLAMMA] Penicillins [PENICILLINS] Allergy Unknown ANAPHYLAXIS Verified 02/03/21 15:53 Review of Systems Review of Systems Constitutional: No Weight loss, No Fever, No Chills, No Night Sweats, No Fatigue, No Malaise ENT/Mouth: No Hearing loss, No Ear Pain, No Nasal Congestion, No Sinus Pain, No Hoarseness, No sore throat, No Rhinorrhea, No Swallowing Difficulty Eyes: No Eye Pain, No Swelling, No Redness, No Foreign Body, No Discharge, No Vision Changes Cardiovascular: No Chest Pain, No SOB, No Dyspnea on Exertion, No Orthopnea, No Edema, No Palpitations Respiratory: No Cough, No Sputum, No Wheezing, No Smoke Exposure, No Dyspnea Gastrointestinal: Positive Nausea, now Vomiting, in a Diarrhea, positive abdominal Pain, No Hematochezia, No Melena Genitourinary: no irregular bleeding, No Dysuria, No Urinary Frequency, No Hematuria, No Urinary Incontinence, No Urgency, No Flank Pain, No Urinary Flow Changes, No Hesitancy Musculoskeletal: No joint pain, No Myalgias, No Joint Swelling Skin: No Skin Lesions, No rash Neuro: No Weakness, No Numbness, No Paresthesias, No Loss of Consciousness, No Dizziness, No Headache Psych: No Anxiety/Panic, No Depression, No SI/HI/AH/VH, No Social Issues Heme/Lymph: No Bruising, No Bleeding,No Lymphadenopathy Endocrine: No Polyuria, No Polydipsia, No Temperature Intolerance Yes all other systems are reviewed and are negative Physical Exam Vital Signs: Vital Signs: Last Vital Signs Temp 97.9 F 02/05/21 00:00 Pulse 86 02/05/21 00:00 Resp 16 02/05/21 00:00 BP 101/54 L 02/05/21 00:00 Pulse Ox 99 02/05/21 00:00 Body Mass Index 42.4 Appearance: Alert. Oriented X3. milddistress. Eyes: Pupils equal, round and reactive to light. ENT: Pharynx normal. Neck: Normal inspection. Neck supple. CVS: Normal heart rate and rhythm. Pulses normal. Respiratory: No respiratory distress. Breath sounds normal. Abdomen: Soft and tender to palpation diffusely, no rigidity or rebound. Skin: Skin warm and dry. Normal skin color. Normal skin turgor. Extremities: No lower extremity edema. Ambulatory, moves all extremities against resistance, Gait well-balanced well coordinated. Neuro: No motor deficit. No sensory deficit. cranial nerves 2-12 intact Course Course Course Narrative: 45-year-old female presents with abdominal pain. Is afebrile, appears nontoxic however lab values are elevated white count is 16.1. Will order CT scan of abdomen and pelvis. Will give ceftriaxone and a L of fluid with pain management. CT abdomen pelvis is negative for acute findings. She is not taking any steroids, I will treat for gastritis with Flagyl and cefuroxime. Patient does receive a prescription for oxycodone, will prescribe Bentyl for abdominal cramping. Patient was advised to follow up with primary care physician. Patient verbalized understanding of and agrees to plan of care discharge home. MDM - Abdominal Pain Differential Diagnosis Differential diagnosis: Likely abdominal pain, acute appendicitis, bowel per foration, calculus of kidney, diverticulitis, gastroenteritis, pancreatitis, renal colic and small bowel obstruction Medical Records Attestation: I reviewed the patient's medical records. Lab Data Attestation: I reviewed the patient's lab results. Result diagrams: 02/04/21 17:37 02/04/21 17:37 Labs: Lab Results 02/04/21 02/04/21 02/04/21 Range/Units 17:37 17:37 17:37 WBC 16.1 H (4.8-10.8) X10*3/uL RBC 4.22 (4.20-5.50) X10*6/uL Hgb 11.9 L (12.0-16.0) g/dl Hct 35.8 L (37-47) % MCV 84.8 (80-98) fL MCH 28.2 (27.0-33.0) pg MCHC 33.2 (31.0-35.0) g/dl RDW 15.6 (11.0-16.0) % Plt Count 411 H (160-400) X10*3/uL MPV 9.7 (9.4-12.3) fL Immature Gran % (Auto) 0.5 H (0.0-0.4) % Neut % (Auto) 73.8 H (45-73) % Lymph % (Auto) 15.8 L (20-40) % [place] % (Auto) 7.3 (2-11) % Eos % (Auto) 1.7 (0-4) % Baso % (Auto) 0.9 (0-2) % Lymph # (Auto) 2.6 (1.2-4.9) X10*3/uL [place] # (Auto) 1.2 (0.1-1.2) X10*3/uL Eos # (Auto) 0.3 (0.0-0.4) X10*3/uL Baso # (Auto) 0.1 (0.0-0.2) X10*3/uL Abs Immat Gran (auto) 0.08 H (0.00-0.03) X10*3/uL Absolute Neuts (auto) 11.9 H (2.0-8.3) X10*3/uL Absolute Nucleated RBC 0.000 (0.0-0.012) X10*3/uL Nucleated RBC % (auto) 0.0 (0.0-0.2) /100WBC Sodium 140 (135-145) mmol/L Potassium 3.5 (3.3-5.1) mmol/L Chloride 103 (96-108) mmol/L Carbon Dioxide 25 (22-29) mmol/L Anion Gap 16 (12-20) BUN 13 (9-16) mg/dL Creatinine 1.18 (0.5-1.4) mg/dL Estim Creat Clear Calc 62.1 Estimated GFR 50 Random Glucose 87 (60-115) mg/dL Lactic Acid (0.5-2.0) mmol/L Calcium 9.8 D (8.4-10.2) mg/dL Total Bilirubin 0.3 (0.0-1.0) mg/dL Direct Bilirubin < 0.2 (0.0-0.5) mg/dL AST 15 (5-31) U/L ALT 13 (0-31) U/L Alkaline Phosphatase 98 (39-117) U/L Troponin I High Sens (<3.5-17.0) ng/L Total Protein 7.6 (6.5-8.0) g/dL Albumin 4.5 (3.5-5.0) g/dL Lipase 17 (8-78) U/L Urine Color YELLOW Urine Appearance CLEAR Urine pH 6.0 (5.0-8.0) Ur Specific [place] 1.025 (1.005-1.025) Urine Protein NEG (NEG-TRACE) MG/DL Urine Glucose (UA) NEG (NEG) MG/DL Urine Ketones NEG (NEG) MG/DL Urine Blood NEG (NEG) Urine Nitrite NEG (NEG) Ur Leukocyte Esterase NEG (NEG) Urine RBC 0 (0) /HPF Urine WBC 0 (0-4) /HPF Ur Squamous Epith Cells 2+ /LPF Urine Bacteria TRACE /LPF Urine Mucus 3+ /LPF 02/04/21 02/04/21 Range/Units 21:46 21:46 WBC (4.8-10.8) X10*3/uL RBC (4.20-5.50) X10*6/uL Hgb (12.0-16.0) g/dl Hct (37-47) % MCV (80-98) fL MCH (27.0-33.0) pg MCHC (31.0-35.0) g/dl RDW (11.0-16.0) % Plt Count (160-400) X10*3/uL MPV (9.4-12.3) fL Immature Gran % (Auto) (0.0-0.4) % Neut % (Auto) (45-73) % Lymph % (Auto) (20-40) % [place] % (Auto) (2-11) % Eos % (Auto) (0-4) % Baso % (Auto) (0-2) % Lymph # (Auto) (1.2-4.9) X10*3/uL [place] # (Auto) (0.1-1.2) X10*3/uL Eos # (Auto) (0.0-0.4) X10*3/uL Baso # (Auto) (0.0-0.2) X10*3/uL Abs Immat Gran (auto) (0.00-0.03) X10*3/uL Absolute Neuts (auto) (2.0-8.3) X10*3/uL Absolute Nucleated RBC (0.0-0.012) X10*3/uL Nucleated RBC % (auto) (0.0-0.2) /100WBC Sodium (135-145) mmol/L Potassium (3.3-5.1) mmol/L Chloride (96-108) mmol/L Carbon Dioxide (22-29) mmol/L Anion Gap (12-20) BUN (9-16) mg/dL Creatinine (0.5-1.4) mg/dL Estim Creat Clear Calc Estimated GFR Random Glucose (60-115) mg/dL Lactic Acid 1.8 (0.5-2.0) mmol/L Calcium (8.4-10.2) mg/dL Total Bilirubin (0.0-1.0) mg/dL Direct Bilirubin (0.0-0.5) mg/dL AST (5-31) U/L ALT (0-31) U/L Alkaline Phosphatase (39-117) U/L Troponin I High Sens < 3.5 (<3.5-17.0) ng/L Total Protein (6.5-8.0) g/dL Albumin (3.5-5.0) g/dL Lipase (8-78) U/L Urine Color Urine Appearance Urine pH (5.0-8.0) Ur Specific [place] (1.005-1.025) Urine Protein (NEG-TRACE) MG/DL Urine Glucose (UA) (NEG) MG/DL Urine Ketones (NEG) MG/DL Urine Blood (NEG) Urine Nitrite (NEG) Ur Leukocyte Esterase (NEG) Urine RBC (0) /HPF Urine WBC (0-4) /HPF Ur Squamous Epith Cells /LPF Urine Bacteria /LPF Urine Mucus /LPF Imaging Data CT abdomen pelvis: Attestation: I personally reviewed and interpreted this imaging study as follows: Radiologist's impression: FINDINGS: LUNG BASES: The visualized lung bases are unremarkable. LIVER, GALLBLADDER, AND BILIARY TREE: The liver is normal in size, shape, and attenuation. No focal hepatic lesion or biliary ductal dilatation is present. Status post cholecystectomy. PANCREAS: Unremarkable. SPLEEN: Unremarkable. ADRENAL GLANDS: Unremarkable. KIDNEYS AND URETERS: The kidneys are normal in size, shape, and attenuation. No hydronephrosis, hydroureter, or calculi seen. No perinephric stranding. BLADDER: Unremarkable. GASTROINTESTINAL TRACT: There are scattered flocculated dense contrast opacities in the stomach and proximal small bowel loops. No acute change of the bowel. No bowel obstruction. No bowel wall thickening or edema. Moderate volume of stool throughout the colon. The appendix is normal. ABDOMINAL WALL: Fat-containing umbilical hernia measuring 2.5 cm transverse. LYMPH NODES: Normal. VASCULAR: Unremarkable. PELVIC VISCERA: Status post hysterectomy. OSSEOUS STRUCTURES: Unremarkable. CT/CT abdomen pelvis w con IMPRESSION: No acute abnormality CT scan abdomen and pelvis. ECG Data Attestation: I personally reviewed and interpreted this ECG as follows: ECG interpretation date: 02/04/21 ECG interpretation time: 21:30 Interpretation: Vent. rate 91 BPM TX interval 144 ms QRS duration 82 ms QT/QTc 382/469 ms P-R-T axes 53 17 30 Normal sinus rhythm Normal ECG When compared with ECG of 24-DEC-2012 12:30, No significant change was found Discharge Plan Discharge Clinical Impression: Abdominal pain Qualifiers: Abdominal location: generalized Qualified Code(s): R10.84 - Generalized abdominal pain Patient Disposition: Home, Self-Care Instructions: Abdominal Pain (ED) Additional Instructions: you were evaluated for abdominal pain. You do have an elevated white count however CT scan of the abdomen and pelvis do not show any indication of infection or abscess. We will treat with Flagyl which is an antibiotic. Please do not drink alcohol while taking this medication. Please take cefuroxime twice a day as directed. Follow-up with primary care provider. We prescribed oxycodone, this is a pain medication that is a narcotic. It has high risk for addiction and abuse. Do not drive or operate machinery while taking this medication. Please use Bentyl as needed for abdominal cramping. Thank you for choosing this emergency department for evaluation. Please f ollow-up with primary care physician as needed. Return to the emergency department for any new, concerning, or worsening symptoms. Prescriptions: New dicyclomine 20 mg tablet 20 mg PO TID PRN (Reason: cramping) Qty: 20 RF: 0 metronidazole [Flagyl] 500 mg tablet 500 mg PO Q12H 10 Days Qty: 20 RF: 0 cefuroxime axetil 500 mg tablet 500 mg PO Q12H 10 Days Qty: 20 RF: 0 No Action oxybutynin chloride 15 mg tablet extended release 24hr 15 mg PO DAILY Qty: 28 RF: 6 gabapentin 400 mg capsule 400 mg PO DAILY Qty: 28 RF: 6 cholecalciferol (vitamin D3) 50 mcg (2,000 unit) capsule 50 mcg PO DAILY 30 Days Qty: 30 RF: 3 montelukast [Singulair] 10 mg tablet 10 mg PO DAILY Qty: 30 RF: 3 prednisone 10 mg tablet See Rx Instructions PO DAILY Qty: 50 RF: 0 tiotropium bromide [Spiriva Respimat] 2.5 mcg/actuation mist 1 puff PO BID Qty: 4 RF: 3 ipratropium bromide [Atrovent HFA] 17 mcg/actuation HFA aerosol inhaler 2 puff PO TID Qty: 12.9 RF: 6 prednisone 20 mg tablet 40 mg PO DAILY 4 Days Qty: 8 RF: 0 carisoprodol [Soma] 350 mg tablet 350 mg PO TID PRN (Reason: muscle pain) Qty: 20 RF: 0 topiramate [Topamax] 25 mg tablet 25 mg PO DAILY RF: 0 losartan 50 mg tablet 50 mg PO DAILY RF: 0 oxycodone 5 mg tablet 5 mg PO Q6H PRNRF: 0 loratadine 10 mg capsule 10 mg PO DAILY RF: 0 Flovent HFA 110 mcg/actuation HFA aerosol inhaler 2 puff inhalation BID 30 Days Qty: 12 RF: 5 (DME) pen needle, diabetic [BD Yesy 2nd Gen Pen Needle] 32 gauge x 5/32 needle See Rx Instructions .MEDSUPPLY Qty: 50 RF: 4 (DME) pen needle, diabetic [BD Yesy 2nd Gen Pen Needle] 32 gauge x 5/32 needle See Rx Instructions .MEDSUPPLY Qty: 50 RF: 4 Saxenda 3 mg/0.5 mL (18 mg/3 mL) pen injector 3 mg subcut DAILY 30 Days Qty: 15 RF: 6 cetirizine [Zyrtec] 10 mg tablet 10 mg PO DAILY RF: 0 paroxetine HCl [Paxil] 40 mg tablet 40 mg PO DAILY RF: 0 acetaminophen [Tylenol 8 Hour] 650 mg tablet extended release 1,300 mg PO Q12H RF: 0 clonidine HCl 0.1 mg tablet 0.1 mg PO BEDTIME RF: 0 zolpidem 10 mg tablet 10 mg PO BEDTIME PRNRF: 0 hydrochlorothiazide 25 mg tablet 25 mg PO DAILY RF: 0 cyclobenzaprine 10 mg tablet 10 mg PO TID RF: 0 valacyclovir [Valtrex] 1 gram tablet 1,000 mg PO DAILY RF: 0 Interventions: ED Discharge Assessment Last Done: 02/05/21 01:02 Discharge Date/Time: 02/05/21 01:43 [facility] Past Medical History Attestation statement: The following information was validated with the patient. Source: old records reviewed Medical History Allergic rhinitis Asthma Cough Morbid obesity Obesity (BMI 30-39.9) PCOS (polycystic ovarian syndrome) Vitamin D deficiency Surgical History History of bladder surgery Hx laparoscopic cholecystectomy Hx of section Hx of dilation and curettage Hx of hysterectomy Hx of tooth extraction Family History Family History Father Heart disease Mother Diabetes mellitus Raynaud disease Paternal Grandfather Diabetes mellitus Paternal Uncle Diabetes mellitus Social History Social History Household Members: Family Housing: House Alcohol intake: unknown Patient Tobacco Use Status: Tobacco use Unknown Second Hand Smoke Exposure: No Use of substances other than those prescribed or required for medical reasons: Unknown Advance Directives: No Advance Directives Information Provided: Yes
--- NOTE | 2021-02-04 21:13 | ECG_ITS ---
Test Reason : ABD PAIN Blood Pressure : / mmHG Vent. Rate : 091 BPM Atrial Rate : 091 BPM P-R Int : 144 ms QRS Dur : 082 ms QT Int : 382 ms P-R-T Axes : 053 017 030 degrees QTc Int : 469 ms Normal sinus rhythm Normal ECG When compared with ECG of 24-DEC-2012 12:30, No significant change was found Referred By: Mouna Youssef Electronically Signed By:CASANDRA ORDONEZ MD
[2021-02-04 21:32] VITALS: BP 113/62; PULSE 87; RESP 18; O2SAT 100
[2021-02-04] MEDS: ondansetron HCL 4 MG/2 ML VIAL IVPUSH (22:09)
[2021-02-04] MEDS: 0.9 % Sodium Chloride 1,000 ML 999 ML IVCONT (22:09)
[2021-02-04] MEDS: cefTRIAXone sodium 1 GM in 0.9 % Sodium Chloride 50 ML IV (22:09)
[2021-02-04] MEDS: iohexoL 350 MG/ML 100 ML INFUS..BTL IV (22:13)
[2021-02-04 22:18] LABS: Lactic Acid 1.8 mmol/L (0.5-2.0)
[2021-02-04 22:24] LABS: Troponin-I High Sensitivity < 3.5 ng/L (<3.5-17.0)
[2021-02-04 23:00] LABS: Lipase 17 U/L (8-78)
[2021-02-05] VITALS: BP 101/54; PULSE 86; RESP 16; TEMP 36.6; O2SAT 99
[2021-02-05] MEDS: Dicyclomine HCl 10 MG CAPSULE 20 MG PO (01:01)
== END 2021-02-05 01:43 | disposition home or self-care (01) ==
PROVIDERS: Nurse Practitioner Family; Emergency Provider Student in an Organized Health Care Education/Training Program; PCP Internal Medicine
DX: R10.84 Generalized abdominal pain (principal); J45.909 Unspecified asthma, uncomplicated; Z79.899 Other long term (current) drug therapy
CPT/HCPCS: 36415; 74177; 80048; 80076; 81001; 83605; 83690; 84484; 85025; 87040; 93005; 96361; 96365; 96375; 99285; J0696; J2405; Q9967

== ENCOUNTER 2021-02-19 16:42 | Outpatient (REF) | payer MEDICAID, SELFPAY ==
--- NOTE | ~2021-02-19 | US_ITS ---
EXAMINATION: US VENOUS ULTRASOUND WITH DOPPLER LOWER EXTREMITY, BILATERAL CLINICAL INFORMATION: Pain. COMPARISON: None TECHNIQUE: Ultrasound of the deep veins is performed from the hip to the calf with compression sonography and color and pulse Doppler assessment. Spectral analysis with color-flow imaging is performed. FINDINGS: RIGHT: There is normal venous compression and respiratory variation and augmented flow. The visualized common femoral vein, superficial femoral vein, profunda femoral vein, popliteal vein, and the trifurcation region shows no evidence of deep venous thrombosis. There is no significant popliteal fossa cyst. LEFT: There is normal venous compression and respiratory variation and augmented flow. The visualized common femoral vein, superficial femoral vein, profunda femoral vein, popliteal vein, and the trifurcation region shows no evidence of deep venous thrombosis. There is no significant popliteal fossa cyst. If the patient's symptoms persist, followup ultrasound in 5 days 7 days might be of value to exclude proximal propagation from a non-visualized calf vein. US/US venous duplex LE BI IMPRESSION: No DVT demonstrated in the bilateral lower extremity.
== END 2021-02-19 16:43 | disposition home or self-care (01) ==
LOC: HO.US 16:42
PROVIDERS: PCP Internal Medicine; Referring Provider Internal Medicine; Visit Provider Nurse Practitioner Family
DX: M79.661 Pain in right lower leg (principal); M79.662 Pain in left lower leg
CPT/HCPCS: 93970

== ENCOUNTER 2021-03-13 12:47 | Emergency (ER) | payer MEDICAID, SELFPAY ==
--- NOTE | ~2021-03-13 | XR_ITS ---
EXAMINATION: XR CHEST CLINICAL INFORMATION: Chest pain. COMPARISON: Chest 06/06/2020 TECHNIQUE: 2 views of the chest were obtained. FINDINGS: The lungs are well-expanded with minimal atelectatic changes in lingula. Rest lungs are clear and expanded. The heart size and pulmonary vascularity is normal. No gross bony abnormality seen. XR/XR chest 2V IMPRESSION: Minimal platelike atelectatic changes in the lingular segment. Rest of the lungs are clear.
--- NOTE | ~2021-03-13 | US_ITS ---
EXAMINATION: US VENOUS ULTRASOUND WITH DOPPLER LOWER EXTREMITY, BILATERAL CLINICAL INFORMATION: Bilateral leg swelling. COMPARISON: None TECHNIQUE: Ultrasound of the deep veins is performed from the hip to the calf with compression sonography and color and pulse Doppler assessment. Spectral analysis with color-flow imaging is performed. FINDINGS: RIGHT: There is normal venous compression and respiratory variation and augmented flow. The visualized common femoral vein, superficial femoral vein, profunda femoral vein, popliteal vein, and the trifurcation region shows no evidence of deep venous thrombosis. There is no significant popliteal fossa cyst. LEFT: There is normal venous compression and respiratory variation and augmented flow. The visualized common femoral vein, superficial femoral vein, profunda femoral vein, popliteal vein, and the trifurcation region shows no evidence of deep venous thrombosis. There is no significant popliteal fossa cyst. If the patient's symptoms persist, followup ultrasound in 5 days 7 days might be of value to exclude proximal propagation from a non-visualized calf vein. US/US venous duplex LE BI IMPRESSION: No DVT demonstrated in the bilateral lower extremity.
[2021-03-13 12:55] VITALS: BP 109/61; BP 110/60; PULSE 102; RESP 16; TEMP 36.8; O2SAT 95; O2SAT 96; BMI 42.6
--- NOTE | 2021-03-13 13:13 | ECG_ITS ---
Test Reason : LEG SWELLING Blood Pressure : / mmHG Vent. Rate : 100 BPM Atrial Rate : 100 BPM P-R Int : 146 ms QRS Dur : 084 ms QT Int : 380 ms P-R-T Axes : 049 006 032 degrees QTc Int : 490 ms Normal sinus rhythm Prolonged QT Abnormal ECG When compared with ECG of 04-FEB-2021 21:30, No significant change was found Referred By: Edie Medina Electronically Signed By:Dieter Dias
--- NOTE | 2021-03-13 13:15 | ED_ITS ---
HPI - Extremity Problem General Chief complaint: Extremity Problem Stated complaint: extremity pain Time Seen by Provider: 03/13/21 13:01 Source: patient and EMS Mode of arrival: EMS Limitations: no limitations History of Present Illness HPI Narrative: 45-year-old female with a past medical history of leukocytoclast ic vasculitis, chronic back pain, bipolar disease, PCOS, asthma, morbidly obese, here with complaints of lower extremity swelling and pain for the last month. Patient seen outpatient on February 19 with a negative ultrasound for DVT. She was started on Lasix 20 mg and a prednisone taper with continued symptoms. Also taking oxycodone 5mg PRN for pain. Was seen at [facility] this morning and sent to the ER for further evaluation. Patient denies any fevers, chills, cough, shortness of breath, chest pain. No injury or trauma. No recent travel or sick contact. Received the [employer] and Dr. Tariff ccine in November of 2020. 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 No OCP use. Related Data Home Medications Medication Instructions Recorded Confirmed acetaminophen 650 mg 1,300 mg PO Q12H 05/21/20 11/28/20 tablet,extended release (Tylenol 8 Hour) cetirizine 10 mg tablet (Zyrtec) 10 mg PO DAILY 05/21/20 11/28/20 clonidine HCl 0.1 mg tablet 0.1 mg PO BEDTIME 05/21/20 11/28/20 cyclobenzaprine 10 mg tablet 10 mg PO TID 05/21/20 11/28/20 hydrochlorothiazide 25 mg tablet 25 mg PO DAILY 05/21/20 11/28/20 paroxetine HCl 40 mg tablet (Paxil) 40 mg PO DAILY 05/21/20 11/28/20 valacyclovir 1 gram tablet 1,000 mg PO DAILY 05/21/20 11/28/20 (Valtrex) zolpidem 10 mg tablet 10 mg PO BEDTIME PRN 05/21/20 11/28/20 losartan 50 mg tablet 50 mg PO DAILY 05/30/20 11/28/20 topiramate 25 mg tablet (Topamax) 25 mg PO DAILY 05/30/20 11/28/20 loratadine 10 mg capsule 10 mg PO DAILY 06/05/20 11/28/20 oxycodone 5 mg tablet 5 mg PO Q6H PRN 06/05/20 11/28/20 Previous Rx's Medication Instructions Recorded fluticasone propionate 110 2 puff INHALATION BID 30 Days #12 g 06/05/20 mcg/actuation HFA aerosol inhaler (Flovent HFA) oxybutynin chloride 15 mg 15 mg PO DAILY #28 tab 07/23/20 tablet,extended release 24 hr gabapentin 400 mg capsule 400 mg PO DAILY #28 cap 10/15/20 prednisone 10 mg tablet See Rx Instructions PO DAILY #50 11/26/20 tab liraglutide (weight loss) 3 mg/0.5 3 mg SUBCUT DAILY 30 Days #15 ml 11/28/20 mL (18 mg/3 mL) subcut pen injector (Saxenda) pen needle, diabetic 32 gauge x #50 ea 11/28/20 532 (BD Yesy 2nd Gen Pen Needle) pen needle, diabetic 32 gauge x #50 ea 11/28/2032 (BD Yesy 2nd Gen Pen Needle) prednisone 20 mg tablet 40 mg PO DAILY 4 Days #8 tab 12/25/20 tiotropium bromide 2.5 1 puff PO BID #4 g 12/26/20 mcg/actuation mist for inhalation (Spiriva Respimat) carisoprodol 350 mg tablet (Soma) 350 mg PO TID PRN #20 tab 01/24/21 cefuroxime axetil 500 mg tablet 500 mg PO Q12H 10 Days #20 tab 02/05/21 dicyclomine 20 mg tablet 20 mg PO TID PRN #20 tab 02/05/21 metronidazole 500 mg tablet 500 mg PO Q12H 10 Days #20 tab 02/05/21 (Flagyl) cholecalciferol (vitamin D3) 50 50 mcg PO DAILY 30 Days #30 cap 02/12/21 mcg (2,000 unit) capsule ipratropium bromide 17 2 puff PO TID #12.9 g 03/09/21 mcg/actuation HFA aerosol inhaler (Atrovent HFA) montelukast 10 mg tablet 10 mg PO DAILY #28 tab 03/09/21 furosemide 20 mg tablet (Lasix) 60 mg PO DAILY #21 tab 03/13/21 Allergies Allergy/AdvReac Type Severity Reaction Status Date / Time albuterol Allergy Intermediate swelling Verified 02/03/21 15:53 tramadol Allergy Intermediate swelling Verified 02/03/21 15:53 buspirone [From BuSpar] Allergy Mild rash Verified 02/03/21 15:53 lamotrigine [From Lamictal] Allergy Mild Unknown Verified 02/03/21 15:53 naproxen Allergy Unknown anaphylaxis Verified 02/03/21 15:53 NSAIDS (Non-Steroidal Allergy Unknown ANAPHYLAXIS Verified 02/03/21 15:53 Anti-Inflamma [NSAIDS (NON-STEROIDAL ANTI-INFLAMMA] Penicillins [PENICILLINS] Allergy Unknown ANAPHYLAXIS Verified 02/03/21 15:53 methotrexate Allergy Rash Verified 03/13/21 13:01 Review of Systems Review of Systems: Yes all other systems are reviewed and are negative Constitutional: Constitutional: Reports no additional constitutional complaint s, Denies body ache(s), Denies chills, Denies fever(s), Denies headache(s) and Denies weakness Eyes: Eyes: Reports no additional eye complaints and Denies change in vision ENT: Reports system reviewed and no additional complaints, except as documented, Denies dizziness, Denies headache(s), Denies nasal congestion, Denies nasal discharge and Denies neck pain Cardiovascular: Cardiovascular: Reports no additional cardiovascular complaints, Denies chest pain, Reports leg edema and Denies dyspnea Respiratory: Respiratory: Reports no additional respiratory complaints, Denies cough and Denies dyspnea Gastrointestinal: Gastrointestinal: Reports no additional gastrointestinal complaints, Denies abdominal pain, Denies diarrhea, Denies nausea and Denies v omiting Genitourinary: Genitourinary: Reports no additional female genitourinary complaints and Denies urinary incontinence Musculoskeletal: Musculoskeletal: Reports no additional musculoskeletal complaints, Denies back pain, Denies arthralgias, Denies joint swelling, Denies neck pain, Denies numbness and Denies tingling Integumentary/Breasts: Skin/Breast: Reports system reviewed and no additional complaints, except as docu and Denies rash Neurologic: Reports system reviewed and no additional complaints, except as documented, Denies Abnormal speech present, Denies dizziness, Denies headache(s), Denies numbness, Denies tingling and Denies weakness PMFSH Past Medical History Attestation statement: The following information was validated with the patient. Source: old records reviewed and nursing notes reviewed Medical History Allergic rhinitis Asthma Cough Morbid obesity Obesity (BMI 30-39.9) PCOS (polycystic ovarian syndrome) Vitamin D deficiency Surgical History History of bladder surgery Hx laparoscopic cholecystectomy Hx of section Hx of dilation and curettage Hx of hysterectomy Hx of tooth extraction Family History Family History Father Heart disease Mother Diabetes mellitus Raynaud disease Paternal Grandfather Diabetes mellitus Paternal Uncle Diabetes mellitus Social History Social History Household Members: Family Housing: House Alcohol intake: unknown Patient Tobacco Use Status: Tobacco use Unknown Second Hand Smoke Exposure: No Advance Directives: No Advance Directives Information Provided: Yes Physical Exam Vital Signs: Vital Signs: Last Vital Signs Temp 98.2 F 03/13/21 12:55 Pulse 102 H 03/13/21 12:55 Resp 16 03/13/21 12:55 BP 109/61 03/13/21 12:55 Pulse Ox 95 03/13/21 12:55 Body Mass Index 42.6 Const: General: cooperative, healthy appearing, comfortable and no acute distress Orientation/consciousness: patient oriented x3 Limitations: no limitations HENMT: Head: Yes normal to inspection Ears: hearing grossly normal bilaterally and TM's normal bilaterally General nose exam: Normal external nose present Face and sinus: Yes normal facial exam Mouth: Normal oral and palatal mucosa present Throat: Yes posterior oropharynx normal, Yes tonsils normal and Yes uvula midline Eyes: General: appearance normal, both eyes and all related structures Pupils: Equal, round and reactive pupils present Neck: Neck: Yes normal visual inspection Chest: Chest palpation & inspection: normal inspection of the chest Resp: Effort & Inspection: normal respiratory effort Auscultation: clear to auscultation bilaterally Cardio: Rate: regular rate Rhythm: regular rhythm Peripheral pulses: Peripheral pulses 2+ throughout GI: Inspection: Yes normal to inspection Palpation (GI): Soft to palpation and nontender Auscultation: normal bowel sounds Back/Spine/Pelvis: Thoracic/Lumbar Spine: thoracic and lumbar spine normal to inspection Skin: General skin exam: no rashes or lesions noted Neuro: General: patient oriented x3, moves all extremities, no focal motor deficits and normal sensation to monofilament Cranial nerves: Yes Equal, round and reactive pupils present, Yes Bilaterally intact EOM present, Yes Nystagmus not present, Yes Normal facial strength present and Yes Midline tongue present Cognition (Neuro): normal cognition Speech: No Abnormal speech present Gait exam (Neuro): Normal gait present Motor exam (neuro): 5/5 motor strength present throughout Sensory Exam: Normal double simultaneous stimulation for sensation Extrem: Other: Pain palpated in bilateral lower extremities. There is discoloration to the skin. Healing rash noted over the lower legs. General: Yes normal to inspection and Yes edema (Bilateral lower extremity swelling nonpitting extending to the knees. ) Course Course Course Narrative: 45-year-old female here with complaints of lower extremity swelling and pain for the last month. Seen by walking in February 19 and had a negative ultrasound for DVT. Started on prednisone taper due to history of vasculitis with concern for flare. Also started on 20 mg of Lasix. Seen today by [facility] for follow-up w ith continued symptoms. Patient tells me that now the swelling and pain is significant enough that she has been unable to work the last week. Denies any associated shortness of breath, chest pain, cough, fever, chills. Noted to be mildly tachycardic at [facility] as well as here. On exam patient has bilateral nonpitting edema to both lower extremities with significant pain. Palpable pulses noted. There is some discoloration to the skin and healing rash over the lower extremities. No warmth. Will need labs, EKG, chest x-ray, lower extremity ultrasound 1630-labs show mildly elevated inflammatory markers unchanged from previous. No leukocytosis or shift. Negative troponin and BNP. Chest x-ray is not consistent with fluid overload. EKG shows no ischemic changes. Ultrasound shows no acute DVT. Discussed case with Dr. Underwood. Clinically patient has lower extremity s welling which is not improved with her current dose of Lasix 20 mg. We discussed increasing her dose of Lasix to 60 mg for the next 7 days and then resume her dose of 20 mg. We also discussed that she should continue her prednisone. Recommend elevation, compression stockings, fluid restriction and follow up with her primary care doctor. Reviewed worrisome signs and symptoms of when to return to the emergency department. Comfortable discharge home. Patient was able to ambulate for discharge. MDM - Extremity (Nontraumatic) MDM Narrative Medical decision making narrative: Less likely DVT with negative ultrasound x2 with symptoms greater than 1 month. Medical Records Attestation: I reviewed the patient's medical records. Lab Data Attestation: I reviewed the patient's lab results. Result diagrams: 03/13/21 13:39 03/13/21 13:39 Labs: Lab Results 03/13/21 03/13/21 03/13/21 Range/Units 13:39 13:39 13:39 WBC 9.1 (4.8-10.8) X10*3/uL RBC 3.87 L (4.20-5.50) X10*6/uL Hgb 10.8 L (12.0-16.0) g/dl Hct 33.1 L (37-47) % MCV 85.5 (80-98) fL MCH 27.9 (27.0-33.0) pg MCHC 32.6 (31.0-35.0) g/dl RDW 15.1 (11.0-16.0) % Plt Count 367 (160-400) X10*3/uL MPV 9.6 (9.4-12.3) fL Immature Gran % (Auto) 0.3 (0.0-0.4) % Neut % (Auto) 71.0 (45-73) % Lymph % (Auto) 15.1 L (20-40) % [place] % (Auto) 9.5 (2-11) % Eos % (Auto) 3.3 (0-4) % Baso % (Auto) 0.8 (0-2) % Lymph # (Auto) 1.4 (1.2-4.9) X10*3/uL [place] # (Auto) 0.9 (0.1-1.2) X10*3/uL Eos # (Auto) 0.3 (0.0-0.4) X10*3/uL Baso # (Auto) 0.1 (0.0-0.2) X10*3/uL Abs Immat Gran (auto) 0.03 (0.00-0.03) X10*3/uL Absolute Neuts (auto) 6.4 (2.0-8.3) X10*3/uL Absolute Nucleated RBC 0.000 (0.0-0.012) X10*3/uL Nucleated RBC % (auto) 0.0 (0.0-0.2) /100WBC ESR (0-20) MM/HR PT 12.5 (9.9-13.0) SEC INR 1.1 (0.9-1.1) D-Dimer < 200 NG/ML Sodium 138 (135-145) mmol/L Potassium 3.6 (3.3-5.1) mmol/L Chloride 97 (96-108) mmol/L Carbon Dioxide 29 (22-29) mmol/L Anion Gap 16 (12-20) BUN 14 (9-16) mg/dL Creatinine 1.01 (0.5-1.4) mg/dL Estim Creat Clear Calc 72.8 Estimated GFR 60 Random Glucose 92 (60-115) mg/dL Lactic Acid (0.5-2.0) mmol/L Calcium 9.4 (8.4-10.2) mg/dL Magnesium (1.6-2.6) mg/dL Total Bilirubin (0.0-1.0) mg/dL Direct Bilirubin (0.0-0.5) mg/dL AST (5-31) U/L ALT (0-31) U/L Alkaline Phosphatase (39-117) U/L Total Creatine Kinase (26-140) U/L Troponin I High Sens (<3.5-17.0) ng/L C-Reactive Protein (< or = 0.50) mg/dL B-Natriuretic Peptide (<100) pg/mL Total Protein (6.5-8.0) g/dL Albumin (3.5-5.0) g/dL Coronavirus (PCR) (Negative) Influenza Type A (PCR) (Negative) Influenza Type B (PCR) (Negative) RSV RNA Qual (PCR) (Negative) 03/13/21 03/13/21 03/13/21 Range/Units 13:39 13:39 13:39 WBC (4.8-10.8) X10*3/uL RBC (4.20-5.50) X10*6/uL Hgb (12.0-16.0) g/dl Hct (37-47) % MCV (80-98) fL MCH (27.0-33.0) pg MCHC (31.0-35.0) g/dl RDW (11.0-16.0) % Plt Count (160-400) X10*3/uL MPV (9.4-12.3) fL Immature Gran % (Auto) (0.0-0.4) % Neut % (Auto) (45-73) % Lymph % (Auto) (20-40) % [place] % (Auto) (2-11) % Eos % (Auto) (0-4) % Baso % (Auto) (0-2) % Lymph # (Auto) (1.2-4.9) X10*3/uL [place] # (Auto) (0.1-1.2) X10*3/uL Eos # (Auto) (0.0-0.4) X10*3/uL Baso # (Auto) (0.0-0.2) X10*3/uL Abs Immat Gran (auto) (0.00-0.03) X10*3/uL Absolute Neuts (auto) (2.0-8.3) X10*3/uL Absolute Nucleated RBC (0.0-0.012) X10*3/uL Nucleated RBC % (auto) (0.0-0.2) /100WBC ESR (0-20) MM/HR PT (9.9-13.0) SEC INR (0.9-1.1) D-Dimer NG/ML Sodium (135-145) mmol/L Potassium (3.3-5.1) mmol/L Chloride (96-108) mmol/L Carbon Dioxide (22-29) mmol/L Anion Gap (12-20) BUN (9-16) mg/dL Creatinine (0.5-1.4) mg/dL Estim Creat Clear Calc Estimated GFR Random Glucose (60-115) mg/dL Lactic Acid 1.3 (0.5-2.0) mmol/L Calcium (8.4-10.2) mg/dL Magnesium 1.9 (1.6-2.6) mg/dL Total Bilirubin 0.4 (0.0-1.0) mg/dL Direct Bilirubin 0.2 (0.0-0.5) mg/dL AST 31 D (5-31) U/L ALT 27 (0-31) U/L Alkaline Phosphatase 88 (39-117) U/L Total Creatine Kinase 92 (26-140) U/L Troponin I High Sens < 3.5 (<3.5-17.0) ng/L C-Reactive Protein (< or = 0.50) mg/dL B-Natriuretic Peptide < 10 (<100) pg/mL Total Protein 6.7 (6.5-8.0) g/dL Albumin 4.0 (3.5-5.0) g/dL Coronavirus (PCR) (Negative) Influenza Type A (PCR) (Negative) Influenza Type B (PCR) (Negative) RSV RNA Qual (PCR) (Negative) 03/13/21 03/13/21 03/13/21 Range/Units 13:39 13:39 13:39 WBC (4.8-10.8) X10*3/uL RBC (4.20-5.50) X10*6/uL Hgb (12.0-16.0) g/dl Hct (37-47) % MCV (80-98) fL MCH (27.0-33.0) pg MCHC (31.0-35.0) g/dl RDW (11.0-16.0) % Plt Count (160-400) X10*3/uL MPV (9.4-12.3) fL Immature Gran % (Auto) (0.0-0.4) % Neut % (Auto) (45-73) % Lymph % (Auto) (20-40) % [place] % (Auto) (2-11) % Eos % (Auto) (0-4) % Baso % (Auto) (0-2) % Lymph # (Auto) (1.2-4.9) X10*3/uL [place] # (Auto) (0.1-1.2) X10*3/uL Eos # (Auto) (0.0-0.4) X10*3/uL Baso # (Auto) (0.0-0.2) X10*3/uL Abs Immat Gran (auto) (0.00-0.03) X10*3/uL Absolute Neuts (auto) (2.0-8.3) X10*3/uL Absolute Nucleated RBC (0.0-0.012) X10*3/uL Nucleated RBC % (auto) (0.0-0.2) /100WBC ESR 44 H (0-20) MM/HR PT (9.9-13.0) SEC INR (0.9-1.1) D-Dimer NG/ML Sodium (135-145) mmol/L Potassium (3.3-5.1) mmol/L Chloride (96-108) mmol/L Carbon Dioxide (22-29) mmol/L Anion Gap (12-20) BUN (9-16) mg/dL Creatinine (0.5-1.4) mg/dL Estim Creat Clear Calc Estimated GFR Random Glucose (60-115) mg/dL Lactic Acid (0.5-2.0) mmol/L Calcium (8.4-10.2) mg/dL Magnesium (1.6-2.6) mg/dL Total Bilirubin (0.0-1.0) mg/dL Direct Bilirubin (0.0-0.5) mg/dL AST (5-31) U/L ALT (0-31) U/L Alkaline Phosphatase (39-117) U/L Total Creatine Kinase (26-140) U/L Troponin I High Sens (<3.5-17.0) ng/L C-Reactive Protein 2.04 H (< or = 0.50) mg/dL B-Natriuretic Peptide (<100) pg/mL Total Protein (6.5-8.0) g/dL Albumin (3.5-5.0) g/dL Coronavirus (PCR) NEGATIVE (Negative) Influenza Type A (PCR) NEGATIVE (Negative) Influenza Type B (PCR) NEGATIVE (Negative) RSV RNA Qual (PCR) NEGATIVE (Negative) Imaging Data Chest x-ray: Attestation: I personally reviewed and interpreted this imaging study as follows: Radiologist's impression: [address] [address] XRay Report Signed Patient: Zee Villanueva MR#: [id number] : 1975 Acct:[id number] Age/Sex: 45 / F ADM Date: 03/13/21 Loc: [facility].ED Attending Dr: Ordering Physician: AMIRAH JAUREGUI NP Date of Service: 03/13/21 Procedure(s): XR chest 2V Accession Number(s): [id number] cc: AMIRAH JAUREGUI NP~ EXAMINATION: XR CHEST CLINICAL INFORMATION: Chest pain. COMPARISON: Chest 06/06/2020 TECHNIQUE: 2 views of the chest were obtained. FINDINGS: The lungs are well-expanded with minimal atelectatic changes in lingula. Rest lungs are clear and expanded. The heart size and pulmonary vascularity is normal. No gross bony abnormality seen. XR/XR chest 2V IMPRESSION: Minimal platelike atelectatic changes in the lingular segment. Rest of the lungs are clear. Venous US: Attestation: I personally reviewed and interpreted this imaging study as follows: Radiologist's impression: FINDINGS: RIGHT: There is normal venous compression and respiratory variation and augmented flow. The visualized common femoral vein, superficial femoral vein, profunda femoral vein, popliteal vein, and the trifurcation region shows no evidence of deep venous thrombosis. ? There is no significant popliteal fossa cyst. LEFT: There is normal venous compression and respiratory variation and augmented flow. The visualized common femoral vein, superficial femoral vein, profunda femoral vein, popliteal vein, and the trifurcation region shows no evidence of deep venous thrombosis. ? There is no significant popliteal fossa cyst. If the patient's symptoms persist, followup ultrasound in 5 days 7 days might be of value to exclude proximal propagation from a non-visualized calf vein. US/US venous duplex LE BI IMPRESSION: No DVT demonstrated in the bilateral lower extremity. Discharge Plan Discharge Clinical Impression: Lower extremity edema Patient Disposition: Home, Self-Care Instructions: Leg Edema (ED) Additional Instructions: Buy compression stockings. Elevate your lower legs. Fluid restriction Increase lasix 20mg to 60mg daily for the next 7 days Continue prednisone Follow-up with your PCP Your labs looked normal with the exception of mildly elevated inflammatory markers which you have had in the past. Your ultrasound showed no evidence of a blood clot Your x-ray of your chest and your EKG looked normal Prescriptions: New furosemide [Lasix] 20 mg tablet 60 mg PO DAILY Qty: 21 RF: 0 No Action oxybutynin chloride 15 mg tablet extended release 24hr 15 mg PO DAILY Qty: 28 RF: 6 gabapentin 400 mg capsule 400 mg PO DAILY Qty: 28 RF: 6 prednisone 10 mg tablet See Rx Instructions PO DAILY Qty: 50 RF: 0 tiotropium bromide [Spiriva Respimat] 2.5 mcg/actuation mist 1 puff PO BID Qty: 4 RF: 3 cholecalciferol (vitamin D3) 50 mcg (2,000 unit) capsule 50 mcg PO DAILY 30 Days Qty: 30 RF: 3 montelukast 10 mg tablet 10 mg PO DAILY Qty: 28 RF: 0 Atrovent HFA 17 mcg/actuation HFA aerosol inhaler 2 puff PO TID Qty: 12.9 RF: 6 prednisone 20 mg tablet 40 mg PO DAILY 4 Days Qty: 8 RF: 0 carisoprodol [Soma] 350 mg tablet 350 mg PO TID PRN (Reason: muscle pain) Qty: 20 RF: 0 dicyclomine 20 mg tablet 20 mg PO TID PRN (Reason: cramping) Qty: 20 RF: 0 metronidazole [Flagyl] 500 mg tablet 500 mg PO Q12H 10 Days Qty: 20 RF: 0 cefuroxime axetil 500 mg tablet 500 mg PO Q12H 10 Days Qty: 20 RF: 0 topiramate [Topamax] 25 mg tablet 25 mg PO DAILY RF: 0 losartan 50 mg tablet 50 mg PO DAILY RF: 0 oxycodone 5 mg tablet 5 mg PO Q6H PRNRF: 0 loratadine 10 mg capsule 10 mg PO DAILY RF: 0 Flovent HFA 110 mcg/actuation HFA aerosol inhaler 2 puff inhalation BID 30 Days Qty: 12 RF: 5 (DME) pen needle, diabetic [BD Yesy 2nd Gen Pen Needle] 32 gauge x 5/32 needle See Rx Instructions .MEDSUPPLY Qty: 50 RF: 4 (DME) pen needle, diabetic [BD Yesy 2nd Gen Pen Needle] 32 gauge x 5/32 needle See Rx Instructions .MEDSUPPLY Qty: 50 RF: 4 Saxenda 3 mg/0.5 mL (18 mg/3 mL) pen injector 3 mg subcut DAILY 30 Days Qty: 15 RF: 6 cetirizine [Zyrtec] 10 mg tablet 10 mg PO DAILY RF: 0 paroxetine HCl [Paxil] 40 mg tablet 40 mg PO DAILY RF: 0 acetaminophen [Tylenol 8 Hour] 650 mg tablet extended release 1,300 mg PO Q12H RF: 0 clonidine HCl 0.1 mg tablet 0.1 mg PO BEDTIME RF: 0 zolpidem 10 mg tablet 10 mg PO BEDTIME PRNRF: 0 hydrochlorothiazide 25 mg tablet 25 mg PO DAILY RF: 0 cyclobenzaprine 10 mg tablet 10 mg PO TID RF: 0 valacyclovir [Valtrex] 1 gram tablet 1,000 mg PO DAILY RF: 0 Referrals: Aaron Carcamo MD [Primary Care Provider] - 2 days Stand Alone Forms: Work/School Release Interventions: ED Discharge Assessment Last Done: 03/13/21 15:50 Discharge Date/Time: 03/13/21 16:07
[2021-03-13] MEDS: Morphine Sulfate 4 MG/ML CARTRIDGE IVPUSH (13:42)
[2021-03-13 13:55] LABS: Basophils Absolute Auto 0.1 X10*3/uL (0.0-0.2); Basophils Percent Auto 0.8 % (0-2); Eosinophils Absolute Auto 0.3 X10*3/uL (0.0-0.4); Eosinophils Percent Auto 3.3 % (0-4); Hematocrit 33.1 % (37-47); Hemoglobin 10.8 g/dl (12.0-16.0); Imm Gran Abs Auto 0.03 X10*3/uL (0.00-0.03); Imm Gran Pct Auto 0.3 % (0.0-0.4); Lymphocytes Absolute Auto 1.4 X10*3/uL (1.2-4.9); Lymphocytes Percent Auto 15.1 % (20-40); MANUAL DIFF FLAG NO; Mean Corpuscular HGB Conc 32.6 g/dl (31.0-35.0); Mean Corpuscular Hemoglobin 27.9 pg (27.0-33.0); Mean Corpuscular Volume 85.5 fL (80-98); Mean Platelet Volume 9.6 fL (9.4-12.3); Monocytes Absolute Auto 0.9 X10*3/uL (0.1-1.2); Monocytes Percent Auto 9.5 % (2-11); Neutrophils Absolute Auto 6.4 X10*3/uL (2.0-8.3); Platelet Count 367 X10*3/uL (160-400); Red Blood Count 3.87 X10*6/uL (4.20-5.50); Red Cell Distribution Width 15.1 % (11.0-16.0); White Blood Count 9.1 X10*3/uL (4.8-10.8)
[2021-03-13 14:01] LABS: INTERNATIONAL NORM RATIO 1.1 (0.9-1.1); Prothrombin Time 12.5 SEC (9.9-13.0)
[2021-03-13 14:08] LABS: D Dimer < 200 NG/ML
[2021-03-13 14:13] LABS: Lactic Acid 1.3 mmol/L (0.5-2.0)
[2021-03-13 14:15] LABS: C Reactive Protein 2.04 mg/dL (< or = 0.50)
[2021-03-13 14:18] LABS: Anion Gap 16 (12-20); Blood Urea Nitrogen 14 mg/dL (9-16); Calcium 9.4 mg/dL (8.4-10.2); Carbon Dioxide 29 mmol/L (22-29); Chloride 97 mmol/L (96-108); Creatinine Clr Calc Pharmacy 72.8; Estimated Glomerular Filt Rate 60; Glucose Random 92 mg/dL (60-115); Potassium 3.6 mmol/L (3.3-5.1); Sodium 138 mmol/L (135-145)
[2021-03-13 14:20] LABS: Alanine Aminotransferase 27 U/L (0-31); Alkaline Phosphatase 88 U/L (39-117); Aspartate Amino Transferase 31 U/L (5-31); Bilirubin Direct 0.2 mg/dL (0.0-0.5); Bilirubin Total 0.4 mg/dL (0.0-1.0); Magnesium 1.9 mg/dL (1.6-2.6); Total Protein 6.7 g/dL (6.5-8.0)
[2021-03-13 14:33] LABS: Influenza A PCR NEGATIVE (Negative); Influenza B PCR NEGATIVE (Negative); Resp Syncy Virus RNA Qual PCR NEGATIVE (Negative); SARS COV2 PCR INHOUSE NEGATIVE (Negative)
[2021-03-13 14:35] LABS: B Type Natriuretic Peptide < 10 pg/mL (<100); Troponin-I High Sensitivity < 3.5 ng/L (<3.5-17.0)
[2021-03-13 14:49] LABS: Erythrocyte Sedimentation Rate 44 MM/HR (0-20)
== END 2021-03-13 16:07 | disposition home or self-care (01) ==
PROVIDERS: Nurse Practitioner Family; Emergency Provider Emergency Medicine Emergency Medical Services; PCP Internal Medicine
DX: R60.0 Localized edema (principal); I77.6 Arteritis, unspecified; Z79.52 Long term (current) use of systemic steroids; Z79.891 Long term (current) use of opiate analgesic; Z79.899 Other long term (current) drug therapy; Z20.822 Contact with and (suspected) exposure to COVID-19
CPT/HCPCS: 0241U; 36415; 71046; 80048; 80076; 82550; 83605; 83735; 83880; 84484; 85025; 85379; 85610; 85652; 86140; 87040; 93005; 93970; 96374; 99284; J2270

== ENCOUNTER 2021-04-02 14:18 | Outpatient (REF) | payer MEDICAID, SELFPAY ==
--- NOTE | ~2021-04-02 | US_ITS ---
EXAMINATION: US VENOUS ULTRASOUND WITH DOPPLER LOWER EXTREMITY, BILATERAL CLINICAL INFORMATION: Edema. Skin changes. COMPARISON: None TECHNIQUE: Ultrasound of the deep veins is performed from the hip to the calf with compression sonography and color and pulse Doppler assessment. Spectral analysis with color-flow imaging is performed. FINDINGS: RIGHT: There is normal venous compression and respiratory variation and augmented flow. The visualized common femoral vein, superficial femoral vein, profunda femoral vein, popliteal vein, and the trifurcation region shows no evidence of deep venous thrombosis. There is no significant popliteal fossa cyst. LEFT: There is normal venous compression and respiratory variation and augmented flow. The visualized common femoral vein, superficial femoral vein, profunda femoral vein, popliteal vein, and the trifurcation region shows no evidence of deep venous thrombosis. There is no significant popliteal fossa cyst. If the patient's symptoms persist, followup ultrasound in 5 days 7 days might be of value to exclude proximal propagation from a non-visualized calf vein. US/US venous duplex LE BI IMPRESSION: No DVT demonstrated in the bilateral lower extremity.
== END 2021-04-02 14:19 | disposition home or self-care (01) ==
LOC: HO.US 14:18
PROVIDERS: Visit Provider Nurse Practitioner Primary Care
DX: R60.0 Localized edema (principal)
CPT/HCPCS: 93970

== ENCOUNTER 2021-04-09 11:16 | Emergency (ER) | payer MEDICAID, SELFPAY ==
[2021-04-09 11:22] VITALS: BP 109/54; PULSE 102; RESP 18; TEMP 36.9; O2SAT 99; BMI 40.0
[2021-04-09 12:43] VITALS: BP 103/53; PULSE 88; RESP 20; TEMP 36.7; O2SAT 99
--- NOTE | 2021-04-09 13:11 | ED_ITS ---
HPI - Abdominal Pain General Chief Complaint: Abdominal Pain Stated Complaint: flank pain, urinary problem Time Seen by Provider: 04/09/21 13:03 Source: patient Mode of arrival: ambulatory Limitations: no limitations History of Present Illness HPI narrative: 45-year-old female with past medical history of chronic back pain, bipolar disease, PCOS, morbid obesity, asthma, leukocytoclastic vasculitis is here today for complaint of right flank pain. Patient denies any nausea or vomiting. Denies any abdominal discomfort or bloating. Recently was placed on Lasix due to bilateral lower extremity swelling. Patient called her PCP, she usually gets oxycodone for her back pain, however her PCP told her to come to e mergency department to get evaluated closer. Patient reports that the pain is nonradiating in its in right flank. Patient has a history of chronic constipation and only move her bowels once a week. When reviewing patient's notes she complained to architectural draftsperson during her office visit that she has chronic abdominal pain and she feels like the mesh from her bladder sling became loose. Patient had recent abdominal CT in January of 2021 that showed no acute abnormalities, however moderate volume of stool throughout the colon. Patient denies melena, hematochezia, unintentional weight loss or ribbon like stools. MD elicited complaint: abdominal pain Related Data Home Medications Medication Instructions Recorded Confirmed acetaminophen 650 mg 1,300 mg PO Q12H 05/21/20 11/28/20 tablet,extended release (Tylenol 8 Hour) cetirizine 10 mg tablet (Zyrtec) 10 mg PO DAILY 05/21/20 11/28/20 clonidine HCl 0.1 mg tablet 0.1 mg PO BEDTIME 05/21/20 11/28/20 cyclobenzaprine 10 mg tablet 10 mg PO TID 05/21/20 11/28/20 hydrochlorothiazide 25 mg tablet 25 mg PO DAILY 05/21/20 11/28/20 paroxetine HCl 40 mg tablet (Paxil) 40 mg PO DAILY 05/21/20 11/28/20 valacyclovir 1 gram tablet 1,000 mg PO DAILY 05/21/20 11/28/20 (Valtrex) zolpidem 10 mg tablet 10 mg PO BEDTIME PRN 05/21/20 11/28/20 losartan 50 mg tablet 50 mg PO DAILY 05/30/20 11/28/20 topiramate 25 mg tablet (Topamax) 25 mg PO DAILY 05/30/20 11/28/20 loratadine 10 mg capsule 10 mg PO DAILY 06/05/20 11/28/20 oxycodone 5 mg tablet 5 mg PO Q6H PRN 06/05/20 11/28/20 Previous Rx's Medication Instructions Recorded fluticasone propionate 110 2 puff INHALATION BID 30 Days #12 g 06/05/20 mcg/actuation HFA aerosol inhaler (Flovent HFA) oxybutynin chloride 15 mg 15 mg PO DAILY #28 tab 07/23/20 tablet,extended release 24 hr gabapentin 400 mg capsule 400 mg PO DAILY #28 cap 10/15/20 prednisone 10 mg tablet See Rx Instructions PO DAILY #50 11/26/20 tab liraglutide (weight loss) 3 mg/0.5 3 mg SUBCUT DAILY 30 Days #15 ml 11/28/20 mL (18 mg/3 mL) subcut pen injector (Saxenda) pen needle, diabetic 32 gauge x #50 ea 11/28/20 5/32 (BD Yesy 2nd Gen Pen Needle) pen needle, diabetic 32 gauge x #50 ea 11/28/20 5/32 (BD Yesy 2nd Gen Pen Needle) prednisone 20 mg tablet 40 mg PO DAILY 4 Days #8 tab 12/25/20 tiotropium bromide 2.5 1 puff PO BID #4 g 12/26/20 mcg/actuation mist for inhalation (Spiriva Respimat) carisoprodol 350 mg tablet (Soma) 350 mg PO TID PRN #20 tab 01/24/21 cefuroxime axetil 500 mg tablet 500 mg PO Q12H 10 Days #20 tab 02/05/21 dicyclomine 20 mg tablet 20 mg PO TID PRN #20 tab 02/05/21 metronidazole 500 mg tablet 500 mg PO Q12H 10 Days #20 tab 02/05/21 (Flagyl) cholecalciferol (vitamin D3) 50 50 mcg PO DAILY 30 Days #30 cap 02/12/21 mcg (2,000 unit) capsule ipratropium bromide 17 2 puff PO TID #12.9 g 03/09/21 mcg/actuation HFA aerosol inhaler (Atrovent HFA) furosemide 20 mg tablet (Lasix) 60 mg PO DAILY #21 tab 03/13/21 montelukast 10 mg tablet 10 mg PO DAILY #28 tab 04/06/21 baclofen 10 mg tablet 10 mg PO BID #10 tab 04/09/21 oxycodone 5 mg tablet 5 mg PO BEDTIME PRN #5 tab 04/09/21 Allergies Allergy/AdvReac Type Severity Reaction Status Date / Time albuterol Allergy Intermediate swelling Verified 04/09/21 11:22 tramadol Allergy Intermediate swelling Verified 04/09/21 11:22 buspirone [From BuSpar] Allergy Mild rash Verified 04/09/21 11:22 lamotrigine [From Lamictal] Allergy Mild Unknown Verified 04/09/21 11:22 naproxen Allergy Unknown anaphylaxis Verified 04/09/21 11:22 NSAIDS (Non-Steroidal Allergy Unknown ANAPHYLAXIS Verified 04/09/21 11:22 Anti-Inflamma [NSAIDS (NON-STEROIDAL ANTI-INFLAMMA] Penicillins [PENICILLINS] Allergy Unknown ANAPHYLAXIS Verified 04/09/21 11:22 methotrexate Allergy Rash Verified 04/09/21 11:22 Review of Systems Review of Systems Constitutional : No Weight loss, No Fever, No Chills, No Night Sweats, No Fatigue, No Malaise ENT/Mouth : No Hearing loss, No Ear Pain, No Nasal Congestion, No Sinus Pain, No Hoarseness, No sore throat, No Rhinorrhea, No Swallowing Difficulty Eyes: No Eye Pain, No Swelling, No Redness, No Foreign Body, No Discharge, No Vision Changes Cardiovascular : No Chest Pain, No SOB, No Dyspnea on Exertion, No Orthopnea, No Edema, No Palpitations Respiratory : No Cough, No Sputum, No Wheezing, No Smoke Exposure, No Dyspnea Gastrointestinal : No Nausea, No Vomiting, No Diarrhea, No Constipation, No abdominal Pain, No Hematochezia, No Melena Genitourinary : no irregular bleeding, No Dysuria, No Urinary Frequency, No Hematuria, No Urinary Incontinence, No Urgency, No Flank Pain, No Urinary Flow Changes, No Hesitancy Musculoskeletal : No joint pain, No Myalgias, No Joint Swelling, right lower back pain Skin : No Skin Lesions, No rash Neuro : No Weakness, No Numbness, No Paresthesias, No Loss of Consciousness, No Dizziness, No Headache Psych : No Anxiety/Panic, No Depression, No SI/HI/AH/VH, No Social Issues, Heme/Lymph: No Bruising, No Bleeding,No Lymphadenopathy Endocrine : No Polyuria, No Polydipsia, No Temperature Intolerance Yes all other systems are reviewed and are negative Physical Exam Vital Signs: Vital Signs: Last Vital Signs Temp 98.4 F 04/09/21 16:00 Pulse 91 04/09/21 16:00 Resp 16 04/09/21 16:00 BP 98/42 L 04/09/21 16:00 Pulse Ox 99 04/09/21 16:00 Body Mass Index 40.0 Const: General: cooperative, healthy appearing and comfortable Nutritional Appearance: average body habitus Orientation/consciousness: patient oriented x3 Limitations: no limitations HENMT: Head: Yes normal to inspection Ears: hearing grossly normal bilaterally General nose exam: Normal external nose present Face and sinus: Yes normal facial exam Mouth: Normal oral and palatal mucosa present Throat: Yes posterior oropharynx normal Eyes: General: appearance normal, both eyes and all related structures Eyelids: Yes eyelids normal Conjunctivae: conjunctivae normal Sclerae: sclerae normal Pupils: Equal, round and reactive pupils present Neck: Neck: Yes normal visual inspection, Yes full ROM, Yes no lymphadenopathy, Yes trachea midline and Yes supple Thyroid: Thyroid normal Lymphatic: no lymphadenopathy noted Chest: Chest palpation & inspection: normal inspection of the chest Resp: Effort & Inspection: normal respiratory effort and able to speak in complete sentences Auscultation: clear to auscultation bilaterally Cardio: Jugular venous distension: no JVD Rate: regular rate Rhythm: regular rhythm Heart sounds: S1 normal heart sound present, S2 normal heart sound present, no gallops, no murmurs and no rubs Peripheral pulses: Peripheral pulses 2+ throughout GI: Inspection: Yes normal to inspection and No distended Palpation (GI): No hepatosplenomegaly present and No Rebound tenderness present Percussion: Yes normal to percussion Auscultation: normal bowel sounds Back/Spine/Pelvis: Cervical Spine: cervical ROM normal and No cervical muscular tenderness Thoracic/Lumbar Spine: thoracic and lumbar spine normal to inspection Skin: General skin exam: no rashes or lesions noted, elasticity normal and turgor normal Neuro: General: patient oriented x3 Cranial nerves: Yes Equal, round and reactive pupils present Extrem: General: Yes normal to inspection, Yes full ROM and Yes capillary refill normal Psych: Appearance: grossly normal Mental Status: mental status grossly normal Speech and movement: Normal speech and movement present Affect: normal affect Attitude: cooperative Thought process: Normal thought process present Insight: Good insight present (Psych) Course Course Course Narrative: As mentioned above in HPI patient has right lower back pain. Patient describes the pain as deep. Negative CVA tenderness. Patient has had recent CT scan on February 04 that showed normal kidney with no stones no hydronephrosis. Patient is status post cholecystectomy. She does not have any other GI or urinary symptoms. Patient reports that she has a history of back pain and is taking cyclobenzaprine. Patient reports that cyclobenzaprine was not helpful. Patient also had kidney ultrasound back in November that was normal. . Reevaluation(s) Reevaluation #1: Patient has leukocytosis at 14.1, however she was just recentl y diagnosed with leukocytoclastic vasculitis. Patient was medicated with morphine and reports to have good relief. I will send her home to follow-up with her PCP. She has appointment with him in couple days. Patient had normal CT scan, however she does have a large amount of stool. Patient reports that she did have a normal bowel movement today. Urinalysis negative for any blood, nitrate or infection. I will be sending her home with baclofen and 5 tablets of oxycodone. Patient is agreeable to plan of care and verbalizes understanding of instructions. She was given the opportunity to ask questions all questions answered. MDM - Abdominal Pain Lab Data Result diagrams: 04/09/21 13:58 04/09/21 14:29 Labs: Lab Results 04/09/21 04/09/21 04/09/21 Range/Units 13:58 13:58 14:29 WBC 14.1 H (4.8-10.8) X10*3/uL RBC 4.28 (4.20-5.50) X10*6/uL Hgb 11.8 L (12.0-16.0) g/dl Hct 36.4 L (37-47) % MCV 85.0 (80-98) fL MCH 27.6 (27.0-33.0) pg MCHC 32.4 (31.0-35.0) g/dl RDW 14.6 (11.0-16.0) % Plt Count 473 H D (160-400) X10*3/uL MPV 9.7 (9.4-12.3) fL Immature Gran % (Auto) 0.4 (0.0-0.4) % Neut % (Auto) 72.2 (45-73) % Lymph % (Auto) 16.7 L (20-40) % [place] % (Auto) 7.7 (2-11) % Eos % (Auto) 2.3 (0-4) % Baso % (Auto) 0.7 (0-2) % Lymph # (Auto) 2.4 (1.2-4.9) X10*3/uL [place] # (Auto) 1.1 (0.1-1.2) X10*3/uL Eos # (Auto) 0.3 (0.0-0.4) X10*3/uL Baso # (Auto) 0.1 (0.0-0.2) X10*3/uL Abs Immat Gran (auto) 0.06 H (0.00-0.03) X10*3/uL Absolute Neuts (auto) 10.2 H (2.0-8.3) X10*3/uL Absolute Nucleated RBC 0.000 (0.0-0.012) X10*3/uL Nucleated RBC % (auto) 0.0 (0.0-0.2) /100WBC Sodium 137 (135-145) mmol/L Potassium 3.4 (3.3-5.1) mmol/L Chloride 99 (96-108) mmol/L Carbon Dioxide 28 (22-29) mmol/L Anion Gap 13 (12-20) BUN 20 H (9-16) mg/dL Creatinine 0.79 (0.5-1.4) mg/dL Estim Creat Clear Calc 89.7 Estimated GFR > 60 Random Glucose 87 (60-115) mg/dL Calcium 9.5 (8.4-10.2) mg/dL Total Bilirubin 0.4 (0.0-1.0) mg/dL AST 28 (5-31) U/L ALT 36 H (0-31) U/L Alkaline Phosphatase 101 (39-117) U/L Total Protein 7.1 (6.5-8.0) g/dL Albumin 4.1 (3.5-5.0) g/dL Lipase 14 (8-78) U/L Urine Color YELLOW Urine Appearance CLEAR Urine pH 6.0 (5.0-8.0) Ur Specific [place] 1.025 (1.005-1.025) Urine Protein NEG (NEG-TRACE) MG/DL Urine Glucose (UA) NEG (NEG) MG/DL Urine Ketones NEG (NEG) MG/DL Urine Blood NEG (NEG) Urine Nitrite NEG (NEG) Ur Leukocyte Esterase NEG (NEG) Discharge Plan Discharge Clinical Impression: Back pain Qualifiers: Back pain location: low back pain Chronicity: chronic Back pain laterality: right Sciatica presence: without sciatica Qualified Code(s): M54.5 - Low back pain Patient Disposition: Home, Self-Care Instructions: Back Pain (ED) Additional Instructions: You were seen here today for back pain. Your kidney functions were normal. Please follow-up with your primary care doctor. Script for muscle relaxer. Please do not use with any other muscle relaxants. You will be giving a script for oxycodone at that you can use at night to help with pain. You may need a physical therapy. You may return to emergency department if you will experience worsening symptoms or any additional concerning symptoms. Please do not drive while taking muscle relaxer or oxycodone. Prescriptions: New oxycodone 5 mg tablet 5 mg PO BEDTIME PRN (Reason: pain) Qty: 5 RF: 0 baclofen 10 mg tablet 10 mg PO BID Qty: 10 RF: 0 No Action oxybutynin chloride 15 mg tablet extended release 24hr 15 mg PO DAILY Qty: 28 RF: 6 gabapentin 400 mg capsule 400 mg PO DAILY Qty: 28 RF: 6 prednisone 10 mg tablet See Rx Instructions PO DAILY Qty: 50 RF: 0 tiotropium bromide [Spiriva Respimat] 2.5 mcg/actuation mist 1 puff PO BID Qty: 4 RF: 3 cholecalciferol (vitamin D3) 50 mcg (2,000 unit) capsule 50 mcg PO DAILY 30 Days Qty: 30 RF: 3 Atrovent HFA 17 mcg/actuation HFA aerosol inhaler 2 puff PO TID Qty: 12.9 RF: 6 montelukast 10 mg tablet 10 mg PO DAILY Qty: 28 RF: 3 prednisone 20 mg tablet 40 mg PO DAILY 4 Days Qty: 8 RF: 0 carisoprodol [Soma] 350 mg tablet 350 mg PO TID PRN (Reason: muscle pain) Qty: 20 RF: 0 dicyclomine 20 mg tablet 20 mg PO TID PRN (Reason: cramping) Qty: 20 RF: 0 metronidazole [Flagyl] 500 mg tablet 500 mg PO Q12H 10 Days Qty: 20 RF: 0 cefuroxime axetil 500 mg tablet 500 mg PO Q12H 10 Days Qty: 20 RF: 0 furosemide [Lasix] 20 mg tablet 60 mg PO DAILY Qty: 21 RF: 0 topiramate [Topamax] 25 mg tablet 25 mg PO DAILY RF: 0 losartan 50 mg tablet 50 mg PO DAILY RF: 0 oxycodone 5 mg tablet 5 mg PO Q6H PRNRF: 0 loratadine 10 mg capsule 10 mg PO DAILY RF: 0 Flovent HFA 110 mcg/actuation HFA aerosol inhaler 2 puff inhalation BID 30 Days Qty: 12 RF: 5 (DME) pen needle, diabetic [BD Yesy 2nd Gen Pen Needle] 32 gauge x 5/32 needle See Rx Instructions .MEDSUPPLY Qty: 50 RF: 4 (DME) pen needle, diabetic [BD Yesy 2nd Gen Pen Needle] 32 gauge x 5/32 needle See Rx Instructions .MEDSUPPLY Qty: 50 RF: 4 Saxenda 3 mg/0.5 mL (18 mg/3 mL) pen injector 3 mg subcut DAILY 30 Days Qty: 15 RF: 6 cetirizine [Zyrtec] 10 mg tablet 10 mg PO DAILY RF: 0 paroxetine HCl [Paxil] 40 mg tablet 40 mg PO DAILY RF: 0 acetaminophen [Tylenol 8 Hour] 650 mg tablet extended release 1,300 mg PO Q12H RF: 0 clonidine HCl 0.1 mg tablet 0.1 mg PO BEDTIME RF: 0 zolpidem 10 mg tablet 10 mg PO BEDTIME PRNRF: 0 hydrochlorothiazide 25 mg tablet 25 mg PO DAILY RF: 0 cyclobenzaprine 10 mg tablet 10 mg PO TID RF: 0 valacyclovir [Valtrex] 1 gram tablet 1,000 mg PO DAILY RF: 0 Referrals: Aaron Cracamo MD [Primary Care Provider] - 2 days Interventions: ED Discharge Assessment Last Done: 04/09/21 17:08 Discharge Date/Time: 04/09/21 17:09 [facility] Past Medical History Medical History Allergic rhinitis Asthma Cough Morbid obesity Obesity (BMI 30-39.9) PCOS (polycystic ovarian syndrome) Vitamin D deficiency Surgical History History of bladder surgery Hx laparoscopic cholecystectomy Hx of section Hx of dilation and curettage Hx of hysterectomy Hx of tooth extraction Family History Family History Father Heart disease Mother Diabetes mellitus Raynaud disease Paternal Grandfather Diabetes mellitus Paternal Uncle Diabetes mellitus Social History Social History Household Members: Family Housing: House Alcohol intake: unknown Patient Tobacco Use Status: Tobacco use Unknown Second Hand Smoke Exposure: No Advance Directives: No Advance Directives Information Provided: No Patient : No
--- NOTE | 2021-04-09 13:45 | PC.NURSE ---
Pt alert and oriented x3. Pt states she has been having a sharp pain in her mid-back since last night. She states she has had this problem in the past when she had a kidney infection. Pt denies sob/dizziness/nausea. She reports taking Tylenol this morning but it did not help the pain. She states she also has sciatica but that is not bothering her now. Pt resting quietly. No apparent distress.
[2021-04-09] MEDS: Morphine Sulfate 2 MG/ML CARTRIDGE IVPUSH (13:59)
[2021-04-09 14:09] LABS: MANUAL DIFF FLAG NO
[2021-04-09 14:10] LABS: Basophils Absolute Auto 0.1 X10*3/uL (0.0-0.2); Basophils Percent Auto 0.7 % (0-2); Eosinophils Absolute Auto 0.3 X10*3/uL (0.0-0.4); Eosinophils Percent Auto 2.3 % (0-4); Hematocrit 36.4 % (37-47); Hemoglobin 11.8 g/dl (12.0-16.0); Imm Gran Abs Auto 0.06 X10*3/uL (0.00-0.03); Imm Gran Pct Auto 0.4 % (0.0-0.4); Lymphocytes Absolute Auto 2.4 X10*3/uL (1.2-4.9); Lymphocytes Percent Auto 16.7 % (20-40); Mean Corpuscular HGB Conc 32.4 g/dl (31.0-35.0); Mean Corpuscular Hemoglobin 27.6 pg (27.0-33.0); Mean Platelet Volume 9.7 fL (9.4-12.3); Monocytes Absolute Auto 1.1 X10*3/uL (0.1-1.2); Monocytes Percent Auto 7.7 % (2-11); Neutrophils Absolute Auto 10.2 X10*3/uL (2.0-8.3); Neutrophils Percent Auto 72.2 % (45-73); Platelet Count 473 X10*3/uL (160-400); Red Blood Count 4.28 X10*6/uL (4.20-5.50); Red Cell Distribution Width 14.6 % (11.0-16.0); White Blood Count 14.1 X10*3/uL (4.8-10.8)
[2021-04-09 14:11] LABS: Glucose Urine UA NEG (NEG); Leukocyte Esterase Urine NEG (NEG); Nitrite Urine NEG (NEG); Specific Gravity - Urine 1.025 (1.005-1.025); Urine Blood NEG (NEG); Urine Ketones NEG (NEG); Urine Protein NEG (NEG-TRACE)
[2021-04-09 14:12] LABS: Appearance Urine CLEAR; Color Urine YELLOW
[2021-04-09 14:59] LABS: Alanine Aminotransferase 36 U/L (0-31); Albumin Level 4.1 g/dL (3.5-5.0); Alkaline Phosphatase 101 U/L (39-117); Anion Gap 13 (12-20); Aspartate Amino Transferase 28 U/L (5-31); Bilirubin Total 0.4 mg/dL (0.0-1.0); Blood Urea Nitrogen 20 mg/dL (9-16); Calcium 9.5 mg/dL (8.4-10.2); Carbon Dioxide 28 mmol/L (22-29); Chloride 99 mmol/L (96-108); Creatinine Clr Calc Pharmacy 89.7; Estimated Glomerular Filt Rate > 60; Glucose Random 87 mg/dL (60-115); Lipase 14 U/L (8-78); Potassium 3.4 mmol/L (3.3-5.1); Sodium 137 mmol/L (135-145); Total Protein 7.1 g/dL (6.5-8.0)
[2021-04-09 16:00] VITALS: BP 98/42; PULSE 91; RESP 16; TEMP 36.9; O2SAT 99
== END 2021-04-09 17:09 | disposition home or self-care (01) ==
PROVIDERS: Nurse Practitioner Family; Emergency Provider Emergency Medicine; PCP Internal Medicine
DX: M54.5 Low back pain (principal); Z79.899 Other long term (current) drug therapy
CPT/HCPCS: 36415; 80053; 81003; 83690; 85025; 96374; 99284; J2270

== ENCOUNTER → 2021-05-07 13:05 | Outpatient (BNVA) | payer MEDICAID, SELFPAY | PROVIDERS: PCP Internal Medicine | DX: N39.3 Stress incontinence (female) (male) (principal); R39.15 Urgency of urination; R35.0 Frequency of micturition | CPT/HCPCS: 51798; 99212 ==

== ENCOUNTER → 2021-09-02 14:11 | Outpatient (BNVA) | payer MEDICAID, SELFPAY | PROVIDERS: PCP Internal Medicine; Visit Provider Internal Medicine | DX: J45.909 Unspecified asthma, uncomplicated (principal); R05.9 Cough, unspecified; E66.01 Morbid (severe) obesity due to excess calories; Z68.41 Body mass index [BMI] 40.0-44.9, adult | CPT/HCPCS: 99212 ==

== ENCOUNTER → 2021-09-09 11:47 | Outpatient (BNVA) | payer MEDICAID, SELFPAY | PROVIDERS: PCP Internal Medicine; Referring Provider Internal Medicine; Visit Provider Nurse Practitioner Family | DX: K21.9 Gastro-esophageal reflux disease without esophagitis (principal); K59.04 Chronic idiopathic constipation; R10.10 Upper abdominal pain, unspecified | CPT/HCPCS: 99202 ==

== ENCOUNTER → 2021-10-08 13:11 | Outpatient (REF) | payer MEDICAID, SELFPAY ==
--- NOTE | 2021-10-08 14:48 | PFT_ITS ---
FLOWS: FEV1 95% of predicted at 2.33 L. FVC 86% of predicted at 2.60 L. FEV1 to FVC ratio of 0.90. No bronchodilator testing was performed. This patient stated that she has recently used albuterol. LUNG VOLUMES: Total lung capacity 84% of predicted at 3.65 L. Residual volume 79% of predicted at 1.12 L. Slow vital capacity 87% of predicted at 2.53 L. Expiratory reserve volume 28% of predicted at 0.26 L. Diffusion capacity is normal. IMPRESSION: No obstructive or restrictive ventilatory defect. Bronchodilator testing was not performed as patient has recently used albuterol in [place]. Decreased expiratory reserve volume suggests extrathoracic restriction, likely secondary to abdominal obesity. Angel Orr MD AP/MODL / [id number]
== END ==
LOC: HO.SL 13:11
PROVIDERS: PCP Internal Medicine; Visit Provider Internal Medicine
DX: R05.9 Cough, unspecified (principal); J45.909 Unspecified asthma, uncomplicated; E66.01 Morbid (severe) obesity due to excess calories; R06.83 Snoring; R40.0 Somnolence
CPT/HCPCS: 94010; 94727; 94729; 95806

== ENCOUNTER → 2021-10-08 | Outpatient (REF) | payer MEDICAID, SELFPAY | LOC: HO.SL | PROVIDERS: Visit Provider Internal Medicine | DX: R05.9 Cough, unspecified (principal); J45.909 Unspecified asthma, uncomplicated; R06.83 Snoring; G47.30 Sleep apnea, unspecified; G47.8 Other sleep disorders | CPT/HCPCS: 95806 ==

== ENCOUNTER 2021-11-04 13:54 | Outpatient (REF) | payer MEDICAID, SELFPAY ==
--- NOTE | ~2021-11-04 | XR_ITS ---
EXAMINATION: XR SINUSES CLINICAL INFORMATION: Chronic sinusitis. COMPARISON: None TECHNIQUE: Fisher, Ruiz, lateral, and SMV views of the paranasal sinuses are submitted. FINDINGS: Paranasal sinuses appear clear without air-fluid levels. No fractures are identified. There is a slight leftward negative septal deviation. No radiodense foreign bodies. XR/XR sinus min 3V IMPRESSION: Unremarkable examination.
--- NOTE | ~2021-11-04 | XR_ITS ---
EXAMINATION: XR CHEST 2 VIEWS CLINICAL INFORMATION: Provided history of allergy. COMPARISON: Prior chest radiograph dated 03/13/2021. TECHNIQUE: Frontal and lateral views of the chest were obtained. FINDINGS: The heart, great vessels, pulmonary vasculature and mediastinum are normal. The lungs show no focal infiltrate, effusion or pneumothorax. There is no acute osseous abnormality. XR/XR chest 2V IMPRESSION: No active cardiopulmonary disease.
[2021-11-04 16:12] LABS: Alanine Aminotransferase 41 U/L (0-31); Albumin Level 3.9 g/dL (3.5-5.0); Alkaline Phosphatase 102 U/L (39-117); Aspartate Amino Transferase 23 U/L (5-31); Bilirubin Direct 0.2 mg/dL (0.0-0.5); Bilirubin Total 0.3 mg/dL (0.0-1.0); Total Protein 6.6 g/dL (6.5-8.0)
[2021-11-05 22:25] LABS: Thyroglobulin Antibodies <1 IU/mL (< or = 1)
[2021-11-07 08:42] LABS: Transglutaminase Ab IgG <1.0 U/mL; Transglutaminase IgA <1.0 U/mL
== END 2021-11-04 13:55 | disposition home or self-care (01) ==
LOC: HO.XRAY 13:54
PROVIDERS: Nurse Practitioner Family; PCP Internal Medicine; Visit Provider Internal Medicine
DX: R10.11 Right upper quadrant pain (principal); R05.9 Cough, unspecified; R14.0 Abdominal distension (gaseous); R79.89 Other specified abnormal findings of blood chemistry; J32.9 Chronic sinusitis, unspecified; T78.40XS Allergy, unspecified, sequela; J45.909 Unspecified asthma, uncomplicated; E66.01 Morbid (severe) obesity due to excess calories
CPT/HCPCS: 36415; 70220; 71046; 80076; 84432; 86364; 86800; 99212

== ENCOUNTER 2021-12-11 12:53 | Outpatient (REF) | payer MEDICAID, SELFPAY ==
--- NOTE | ~2021-12-11 | MR_ITS ---
EXAMINATION: MR LUMBAR SPINE WITHOUT CONTRAST CLINICAL INFORMATION: Low back pain. COMPARISON: None TECHNIQUE: MRI of the lumbar spine was obtained using routine sequences without contrast. FINDINGS: The lumbar vertebral bodies maintain normal heights and alignment. No significant disc height loss is seen. Bone marrow edema/stress response is seen within the left L5 pedicle. Several scattered hemangiomata are noted. The distal spinal cord appears normal. The conus medullaris terminates normally at the L2 level. There is a small filar lipoma. The visualized paraspinal muscles and intra-abdominal and pelvic contents are within normal limits. SPINAL LEVELS: L1-L2: No posterior disc abnormality. No spinal canal or neural foraminal stenosis. L2-L3: No posterior disc abnormality. No spinal canal or neural foraminal stenosis. L3-L4: Mild disc bulging slightly asymmetric to the left with mild to moderate facet arthropathy. No spinal canal stenosis. Minimal narrowing of the left neural foramen. L4-L5: Disc bulging with moderate facet arthropathy. No spinal canal stenosis. Mild bilateral neural foraminal stenosis. L5-S1: Disc bulging with central protrusion and moderate facet arthropathy. No spinal canal stenosis. Mild bilateral neural foraminal stenosis. MR/MR lumbar spine wo con IMPRESSION: Mild degenerative spondylosis without significant narrowing of the spinal canal. No high-grade neural foraminal stenosis is seen. Marrow edema/stress response seen within the left L5 pedicle.
== END 2021-12-11 12:54 | disposition home or self-care (01) ==
LOC: HO.MRI 12:53
PROVIDERS: Visit Provider Internal Medicine
DX: M54.50 Low back pain, unspecified (principal)
CPT/HCPCS: 72148

== ENCOUNTER → 2021-12-23 14:18 | Outpatient (BNVA) | payer MEDICAID, SELFPAY | PROVIDERS: PCP Internal Medicine; Visit Provider Internal Medicine | DX: J45.909 Unspecified asthma, uncomplicated (principal); E66.9 Obesity, unspecified; Z68.41 Body mass index [BMI] 40.0-44.9, adult | CPT/HCPCS: 99212 ==

== ENCOUNTER 2022-01-07 16:44 | Inpatient (IN) | payer MEDICAID, SELFPAY ==
--- NOTE | ~2022-01-07 | XR_ITS ---
EXAMINATION: XR CHEST CLINICAL INFORMATION: Edema. Short of breath. COMPARISON: Chest 11/04/2021 TECHNIQUE: Frontal view of the chest was obtained. FINDINGS: The lungs are well-expanded and clear of acute process. The heart size and pulmonary vascularity is normal. No gross bony abnormality seen. XR/XR chest 1V IMPRESSION: Unremarkable chest exam.
[2022-01-07 17:15] VITALS: BP 109/43; BP 140/70; PULSE 72; PULSE 80; RESP 18; TEMP 36.7; O2SAT 99; BMI 46.4
--- NOTE | 2022-01-07 22:19 | ECG_ITS ---
Test Reason : HYPOTENSION Blood Pressure : / mmHG Vent. Rate : 061 BPM Atrial Rate : 061 BPM P-R Int : 166 ms QRS Dur : 080 ms QT Int : 428 ms P-R-T Axes : 043 013 028 degrees QTc Int : 430 ms Normal sinus rhythm Normal ECG When compared with ECG of 13-MAR-2021 13:31, Vent. rate has decreased BY 39 BPM QT has shortened Referred By: Uche Landry Electronically Signed By:CASANDRA ORDONEZ MD
--- NOTE | 2022-01-07 22:20 | ED_ITS ---
HPI - General Adult General Chief complaint: General Medical Stated complaint: Leg pain Time Seen by Provider: 01/07/22 22:19 Source: patient Mode of arrival: ambulatory Limitations: no limitations History of Present Illness HPI narrative: This is a 46 years old female came in for evaluation of increased body ache, found to be hypotensive at the PCP office. Patient with history of osteoarthritis and leukocytoclastic vasculitis, chronic generalize body ache patient has been using prednisone for long periods of time, patient is also taking methotrexate and hydroxychloroquine, patient also take Lasix 20 mg daily. Patient went to see her PCP today found to have diffuse edema and found to be hypotensive at the PCP office patient was sent for further evaluation. Related Data Home Medications Medication Instructions Recorded Confirmed acetaminophen 650 mg 1,300 mg PO Q12H 05/21/20 11/28/20 tablet,extended release (Tylenol 8 Hour) cetirizine 10 mg tablet (Zyrtec) 10 mg PO DAILY 05/21/20 11/28/20 paroxetine HCl 40 mg tablet (Paxil) 40 mg PO DAILY 05/21/20 11/28/20 valacyclovir 1 gram tablet 1,000 mg PO DAILY 05/21/20 11/28/20 (Valtrex) zolpidem 10 mg tablet 10 mg PO BEDTIME PRN 05/21/20 11/28/20 losartan 50 mg tablet 50 mg PO DAILY 05/30/20 11/28/20 topiramate 25 mg tablet (Topamax) 25 mg PO DAILY 05/30/20 11/28/20 loratadine 10 mg capsule 10 mg PO DAILY 06/05/20 11/28/20 aripiprazole 2 mg tablet (Abilify) 2 mg PO BEDTIME 11/04/21 clonidine HCl 0.1 mg tablet 0.2 mg PO BEDTIME tab 11/04/21 furosemide 20 mg tablet (Lasix) 20 mg PO DAILY tab 11/04/21 oxycodone 10 mg tablet 10 mg PO Q6H PRN 11/04/21 topiramate 100 mg tablet (Topamax) 100 mg PO DAILY 11/04/21 cholecalciferol (vitamin D3) 50 50 mcg PO DAILY 12/23/21 mcg (2,000 unit) tablet ziprasidone HCl 20 mg capsule 20 mg PO BID 12/23/21 (Geodon) Previous Rx's Medication Instructions Recorded oxybutynin chloride 15 mg 15 mg PO DAILY #28 tab 07/23/20 tablet,extended release 24 hr pen needle, diabetic 32 gauge x #50 ea 11/28/20 (BD Yesy 2nd Gen Pen Needle) pen needle, diabetic 32 gauge x #50 ea 11/28/20 (BD Yesy 2nd Gen Pen Needle) cholecalciferol (vitamin D3) 50 50 mcg PO DAILY 30 Days #30 cap 02/12/21 mcg (2,000 unit) capsule baclofen 10 mg tablet 10 mg PO BID #10 tab 04/09/21 gabapentin 400 mg capsule 400 mg PO DAILY #90 cap 06/08/21 ipratropium bromide 17 2 puff PO TID #12.9 g 08/31/21 mcg/actuation HFA aerosol inhaler (Atrovent HFA) fluticasone propionate 110 2 puff PO BID #12 g 09/07/21 mcg/actuation HFA aerosol inhaler (Flovent HFA) methylcellulose (laxative) 500 mg 500 mg PO DAILY #30 tab 09/09/21 tablet (Citrucel) sennosides 8.6 mg tablet (Natural 8.6 mg PO BEDTIME #30 tab 09/09/21 Senna Laxative) montelukast 10 mg tablet 10 mg PO DAILY #28 tab 09/29/21 oxybutynin chloride 15 mg 15 mg PO DAILY 90 Days #90 tab 11/09/21 tablet,extended release 24 hr Allergies Allergy/AdvReac Type Severity Reaction Status Date / Time albuterol Allergy Intermediate swelling Verified 12/23/21 15:16 tramadol Allergy Intermediate swelling Verified 12/23/21 15:16 buspirone [From BuSpar] Allergy Mild rash Verified 12/23/21 15:16 lamotrigine [From Lamictal] Allergy Mild Unknown Verified 12/23/21 15:16 naproxen Allergy Unknown anaphylaxis Verified 12/23/21 15:16 NSAIDS (Non-Steroidal Allergy Unknown ANAPHYLAXIS Verified 12/23/21 15:16 Anti-Inflamma [NSAIDS (NON-STEROIDAL ANTI-INFLAMMA] Penicillins [PENICILLINS] Allergy Unknown ANAPHYLAXIS Verified 12/23/21 15:16 methotrexate Allergy Rash Verified 12/23/21 15:16 Review of Systems Review of Systems: All other systems are reviewed and are negative Constitutional: Reports as per HPI and Reports no additional constitutional complaints Eyes: Reports as per HPI and Reports no additional eye complaints Reports system reviewed and no additional complaints, except as documented Cardiovascular: Reports as per HPI and Reports no additional cardiovascular complaints Respiratory: Reports as per HPI and Reports no additional respiratory complaints Gastrointestinal: Reports as per HPI and Reports no additional gastrointestinal complaints Genitourinary: Reports no additional female genitourinary complaints Musculoskeletal: Reports no additional musculoskeletal complaints Skin/Breast: Reports system reviewed and no additional complaints, except as docu Psychiatric: Reports no additional psychiatric complaints Endocrine: Reports no additional endocrine complaints Hematologic/Lymphatic: Reports no additional hematologic/lymphatic complaints Allergic/Immunologic: Reports no additional allergic/immunologic complaints Reports system reviewed and no additional complaints, except as documented and Reports Abnormal speech present [facility] Past Medical History Medical History Allergic rhinitis Asthma Cough Morbid obesity Obesity (BMI 30-39.9) PCOS (polycystic ovarian syndrome) Sinusitis Snoring Somnolence, daytime Vitamin D deficiency Surgical History History of bladder surgery Hx laparoscopic cholecystectomy Hx of section Hx of dilation and curettage Hx of hysterectomy Hx of tooth extraction Family History Family History Father Heart disease Mother Diabetes mellitus Raynaud disease Paternal Grandfather Diabetes mellitus Paternal Uncle Diabetes mellitus Social History Social History Household Members: Family Housing: House Alcohol intake: unknown Patient Tobacco Use Status: Former Tobacco user Second Hand Smoke Exposure: No Advance Directives: No Advance Directives Information Provided: No Physical Exam ED Vital Signs: Vital Signs - 24 hr 01/07/22 17:15 01/07/22 22:24 01/07/22 23:51 Temperature 98.1 F 98.4 F 98.0 F Pulse Rate 72 69 66 Respiratory Rate 18 16 16 Blood Pressure 109/43 L 103/42 L 132/51 L Pulse Oximetry 99 98 98 01/08/22 00:30 Temperature Pulse Rate 69 Respiratory Rate 16 Blood Pressure 105/56 L Pulse Oximetry 97 BMI result Body Mass Index 46.4 Vital signs have been reviewed as appeared to be correct. Blood pressure normal. Heart rate normal. Respiration rate normal. Temperature normal. Oxygen saturation normal. Appearance: Alert. Oriented X3. No acute distress. Head: Normal external exam. Normocephalic. Atraumatic. No Lilly signs noted. No raccoon eyes noted Eyes: PERRLA. EOMI. Conjunctiva and sclera normal. Eyelids normal. ENT: TM's Normal. Pharynx normal. Uvula midline. Moist mucous membranes. No trismus noted. No drooling noted. No muffled voice noted. Neck: Normal inspection. Neck supple. FROM. No adenopathy. Thyroid Normal. No meningeal signs. No neck mass noted. CVS: Normal heart rate and rhythm. Heart sound normal. No murmurs noted. Pulses normal throughout. Respiratory: No respiratory distress. Painless inspiration. Breath sounds normal. No wheezes/rales/rhonchi noted. Chest nontender. No accessory muscle usage noted or decreased air movement noted. Abdomen: Soft and nontender. Bowel sounds normal in all 4 quadrants. No distention noted. No organomegaly noted. No visible injury noted. Back: No CVA tenderness. Full range of motion noted. Skin: Skin warm and dry. Normal skin color. Normal skin turgor. No rashes/lesions/lacerations noted. Extremities: +2 lower extremity edema. Extremities exhibit normal range of motion. Extremities nontender. Neuro: Oriented X 3. Cranial nerve exam: II-XII are grossly intact No motor deficit. No sensory deficit. Reflexes normal. Course Course Course Narrative: Assessment and plan. 46-year-old female with history of arthritis and vasculitis, patient required chronic steroid therapy, patient was sent by her PCP for hypotension, patient u se daily Lasix 20 mg. Patient will require diuresis and blood pressure monitoring. Medical Decision Making Lab Data Lab results reviewed: Yes I reviewed the patient's lab results. Result diagrams: 01/07/22 23:32 01/07/22 23:32 Labs: Lab Results 01/07/22 01/07/22 01/07/22 Range/Units 22:38 22:38 23:32 WBC 10.0 (4.8-10.8) X10*3/uL RBC 3.83 L (4.20-5.50) X10*6/uL Hgb 10.4 L (12.0-16.0) g/dl Hct 32.4 L (37.0-47.0) % MCV 84.6 (80.0-98.0) fL MCH 27.2 (27.0-33.0) pg MCHC 32.1 (31.0-35.0) g/dl RDW 15.5 (11.0-16.0) % Plt Count 260 (160-400) X10*3/uL MPV 10.0 (9.4-12.3) fL Immature Gran % (Auto) 0.4 (0.0-0.4) % Neut % (Auto) 67.7 (45-73) % Lymph % (Auto) 18.5 L (20-40) % [place] % (Auto) 8.9 (2-11) % Eos % (Auto) 3.8 (0-4) % Baso % (Auto) 0.7 (0-2) % Lymph # (Auto) 1.9 (1.2-4.9) X10*3/uL [place] # (Auto) 0.9 (0.1-1.2) X10*3/uL Eos # (Auto) 0.4 (0.0-0.4) X10*3/uL Baso # (Auto) 0.1 (0.0-0.2) X10*3/uL Abs Immat Gran (auto) 0.04 H (0.00-0.03) X10*3/uL Absolute Neuts (auto) 6.8 (2.0-8.3) x10*3/uL Absolute Nucleated RBC 0.000 (0.0-0.012) X10*3/uL Nucleated RBC % (auto) 0.0 (0.0-0.2) /100WBC Sodium (135-145) mmol/L Potassium (3.3-5.1) mmol/L Chloride (96-108) mmol/L Carbon Dioxide (22-29) mmol/L Anion Gap (12-20) BUN (9-16) mg/dL Creatinine (0.5-1.4) mg/dL Estim Creat Clear Calc Estimated GFR Random Glucose (60-115) mg/dL Calcium (8.4-10.2) mg/dL Total Bilirubin (0.0-1.0) mg/dL Direct Bilirubin (0.0-0.5) mg/dL AST (5-31) U/L ALT (0-31) U/L Alkaline Phosphatase (39-117) U/L Troponin I High Sens < 3.5 (<3.5-17.0) ng/L B-Natriuretic Peptide 83 (<100) pg/mL Total Protein (6.5-8.0) g/dL Albumin (3.5-5.0) g/dL Lipase (8-78) U/L Influenza Type A (PCR) NEGATIVE (Negative) Influenza Type B (PCR) NEGATIVE (Negative) RSV RNA Qual (PCR) NEGATIVE (Negative) SARS-CoV-2 RNA (RT-PCR) NEGATIVE (Negative) 01/07/22 Range/Units 23:32 WBC (4.8-10.8) X10*3/uL RBC (4.20-5.50) X10*6/uL Hgb (12.0-16.0) g/dl Hct (37.0-47.0) % MCV (80.0-98.0) fL MCH (27.0-33.0) pg MCHC (31.0-35.0) g/dl RDW (11.0-16.0) % Plt Count (160-400) X10*3/uL MPV (9.4-12.3) fL Immature Gran % (Auto) (0.0-0.4) % Neut % (Auto) (45-73) % Lymph % (Auto) (20-40) % [place] % (Auto) (2-11) % Eos % (Auto) (0-4) % Baso % (Auto) (0-2) % Lymph # (Auto) (1.2-4.9) X10*3/uL [place] # (Auto) (0.1-1.2) X10*3/uL Eos # (Auto) (0.0-0.4) X10*3/uL Baso # (Auto) (0.0-0.2) X10*3/uL Abs Immat Gran (auto) (0.00-0.03) X10*3/uL Absolute Neuts (auto) (2.0-8.3) x10*3/uL Absolute Nucleated RBC (0.0-0.012) X10*3/uL Nucleated RBC % (auto) (0.0-0.2) /100WBC Sodium 140 (135-145) mmol/L Potassium 4.4 D (3.3-5.1) mmol/L Chloride 106 (96-108) mmol/L Carbon Dioxide 25 (22-29) mmol/L Anion Gap 13 (12-20) BUN 11 (9-16) mg/dL Creatinine 0.87 (0.5-1.4) mg/dL Estim Creat Clear Calc 88.1 Estimated GFR > 60 Random Glucose 72 (60-115) mg/dL Calcium 8.9 D (8.4-10.2) mg/dL Total Bilirubin 0.2 (0.0-1.0) mg/dL Direct Bilirubin < 0.2 (0.0-0.5) mg/dL AST 12 D (5-31) U/L ALT 12 (0-31) U/L Alkaline Phosphatase 86 (39-117) U/L Troponin I High Sens (<3.5-17.0) ng/L B-Natriuretic Peptide (<100) pg/mL Total Protein 6.3 L (6.5-8.0) g/dL Albumin 3.6 (3.5-5.0) g/dL Lipase 13 (8-78) U/L Influenza Type A (PCR) (Negative) Influenza Type B (PCR) (Negative) RSV RNA Qual (PCR) (Negative) SARS-CoV-2 RNA (RT-PCR) (Negative) Imaging Data Chest x-ray: Attestation: I personally reviewed and interpreted this imaging study as follows: Radiologist's impression: Unremarkable chest exam. Discharge Plan Discharge Clinical Impression: Edema Patient Disposition: Admitted As Inpatient Prescriptions: No Action oxybutynin chloride 15 mg tablet extended release 24hr 15 mg PO DAILY Qty: 28 6RF cholecalciferol (vitamin D3) 50 mcg (2,000 unit) capsule 50 mcg PO DAILY 30 Days Qty: 30 3RF gabapentin 400 mg capsule 400 mg PO DAILY Qty: 90 3RF Atrovent HFA 17 mcg/actuation HFA aerosol inhaler 2 puff PO TID Qty: 12.9 6RF Flovent HFA 110 mcg/actuation HFA aerosol inhaler 2 puff PO BID Qty: 12 0RF montelukast 10 mg tablet 10 mg PO DAILY Qty: 28 3RF oxybutynin chloride 15 mg tablet extended release 24 hr 15 mg PO DAILY 90 Days Qty: 90 1RF baclofen 10 mg tablet 10 mg PO BID Qty: 10 0RF topiramate [Topamax] 25 mg tablet 25 mg PO DAILY 0RF losartan 50 mg tablet 50 mg PO DAILY 0RF loratadine 10 mg capsule 10 mg PO DAILY 0RF (DME) pen needle, diabetic [BD Yesy 2nd Gen Pen Needle] 32 gauge x 5/32 needle See Rx Instructions .MEDSUPPLY Qty: 50 4RF Rx Instructions: once a day (DME) pen needle, diabetic [BD Yesy 2nd Gen Pen Needle] 32 gauge x 5/32 needle See Rx Instructions .MEDSUPPLY Qty: 50 4RF Rx Instructions: once a day cetirizine [Zyrtec] 10 mg tablet 10 mg PO DAILY 0RF paroxetine HCl [Paxil] 40 mg tablet 40 mg PO DAILY 0RF acetaminophen [Tylenol 8 Hour] 650 mg tablet extended release 1,300 mg PO Q12H 0RF zolpidem 10 mg tablet 10 mg PO BEDTIME PRN0RF valacyclovir [Valtrex] 1 gram tablet 1,000 mg PO DAILY 0RF clonidine HCl 0.1 mg tablet 0.2 mg PO BEDTIME 0RF sennosides [Natural Senna Laxative] 8.6 mg tablet 8.6 mg PO BEDTIME Qty: 30 3RF Citrucel 500 mg tablet 500 mg PO DAILY Qty: 30 2RF Rx Instructions: take it with full glass of water aripiprazole [Abilify] 2 mg tablet 2 mg PO BEDTIME 0RF oxycodone 10 mg tablet 10 mg PO Q6H PRN0RF topiramate [Topamax] 100 mg tablet 100 mg PO DAILY 0RF furosemide [Lasix] 20 mg tablet 20 mg PO DAILY 0RF ziprasidone HCl [Geodon] 20 mg capsule 20 mg PO BID 0RF Rx Instructions: give with food (meal/snack)pt takes 20mg in am and 40 mg in pm cholecalciferol (vitamin D3) 50 mcg (2,000 unit) tablet 50 mcg PO DAILY 0RF
[2022-01-07 22:24] VITALS: BP 103/42; PULSE 69; RESP 16; TEMP 36.9; O2SAT 98
[2022-01-07 23:04] LABS: B Type Natriuretic Peptide 83 pg/mL (<100); Troponin-I High Sensitivity < 3.5 ng/L (<3.5-17.0)
[2022-01-07 23:22] LABS: Influenza A PCR NEGATIVE (Negative); Influenza B PCR NEGATIVE (Negative); Resp Syncy Virus RNA Qual PCR NEGATIVE (Negative); SARS COV2 PCR INHOUSE NEGATIVE (Negative)
[2022-01-07 23:36] LABS: MANUAL DIFF FLAG NO
[2022-01-07 23:37] LABS: Basophils Absolute Auto 0.1 X10*3/uL (0.0-0.2); Basophils Percent Auto 0.7 % (0-2); Eosinophils Absolute Auto 0.4 X10*3/uL (0.0-0.4); Eosinophils Percent Auto 3.8 % (0-4); Hematocrit 32.4 % (37.0-47.0); Hemoglobin 10.4 g/dl (12.0-16.0); Imm Gran Abs Auto 0.04 X10*3/uL (0.00-0.03); Imm Gran Pct Auto 0.4 % (0.0-0.4); Lymphocytes Absolute Auto 1.9 X10*3/uL (1.2-4.9); Lymphocytes Percent Auto 18.5 % (20-40); Mean Corpuscular HGB Conc 32.1 g/dl (31.0-35.0); Mean Corpuscular Hemoglobin 27.2 pg (27.0-33.0); Mean Corpuscular Volume 84.6 fL (80.0-98.0); Monocytes Absolute Auto 0.9 X10*3/uL (0.1-1.2); Monocytes Percent Auto 8.9 % (2-11); Neutrophils Absolute Auto 6.8 x10*3/uL (2.0-8.3); Neutrophils Percent Auto 67.7 % (45-73); Platelet Count 260 X10*3/uL (160-400); Red Blood Count 3.83 X10*6/uL (4.20-5.50); Red Cell Distribution Width 15.5 % (11.0-16.0)
[2022-01-07 23:51] VITALS: BP 132/51; PULSE 66; RESP 16; TEMP 36.7; O2SAT 98
[2022-01-08] VITALS (9 sets, daily range): BP systolic 98–122; BP diastolic 47–59; PULSE 63–82; RESP 14–20; TEMP -13.2–37.1; O2SAT 94–100
[2022-01-08] LABS: Alanine Aminotransferase 12 U/L (0-31); Albumin Level 3.6 g/dL (3.5-5.0); Alkaline Phosphatase 86 U/L (39-117); Anion Gap 13 (12-20); Aspartate Amino Transferase 12 U/L (5-31); Bilirubin Direct < 0.2 mg/dL (0.0-0.5); Bilirubin Total 0.2 mg/dL (0.0-1.0); Blood Urea Nitrogen 11 mg/dL (9-16); Calcium 8.9 mg/dL (8.4-10.2); Carbon Dioxide 25 mmol/L (22-29); Chloride 106 mmol/L (96-108); Creatinine Clr Calc Pharmacy 88.1; Estimated Glomerular Filt Rate > 60; Glucose Random 72 mg/dL (60-115); Lipase 13 U/L (8-78); Potassium 4.4 mmol/L (3.3-5.1); Sodium 140 mmol/L (135-145); Total Protein 6.3 g/dL (6.5-8.0)
[2022-01-08 00:43] LABS: Appearance Urine HAZY; Color Urine YELLOW; Glucose Urine UA NEG (NEG); Leukocyte Esterase Urine 2+ (NEG); Nitrite Urine POS (NEG); Specific Gravity - Urine 1.025 (1.005-1.025); UACC Culture Trigger YES; Urine Blood NEG (NEG); Urine Ketones NEG (NEG); Urine Protein NEG (NEG-TRACE)
[2022-01-08 00:52] LABS: Bacteria Urine 4+ /LPF; RBC Urine 0 /HPF (0); Squamous Epithelial Cell Urine 3+ /LPF; WBC Urine 30-49 /HPF (0-4)
--- NOTE | 2022-01-08 01:23 | P.HPHOSP_ITS ---
History of Present Illness Date of Service: 01/08/22 Chief Complaint: low bp This is a 46-year-old female past medical history vasculitis on chronic prednisone, asthma, morbid obesity, who presents to the hospital after being found to have low BP at her primary care physician's office. Patient also complains of four-week history of generalized swelling in her face, hands, and legs. Patient reports that this has been attributed to her vasculitis but she is concerned and is not convinced. She denies any chest pain, no fever has significant chills, no shortness of breath, no cough. No abdominal pain nausea or vomiting, no diarrheaa, has chronic constipation, no orthopnea. She reports urinary frequency with no dysuria or urgency. Weakness numbness or tingling. Patient reports that she is on 20 mg of Lasix at baseline for lymphedema Arrival to the ED patient hemodynamically stable with no significant abnormal vitals except for a blood pressure of 103/42 Labs are significant for WBC count of 10.0, hemoglobin of 10.4, UA positive for nitrites, leukocyte Estrace and WBC Chest x-ray negative Patient will be admitted further evaluation Review of Systems Review of Systems: Yes all other systems are reviewed and are negative [facility] Medical History Allergic rhinitis Asthma Cough Morbid obesity Obesity (BMI 30-39.9) PCOS (polycystic ovarian syndrome) Sinusitis Snoring Somnolence, daytime Vitamin D deficiency Family History Father Heart disease Mother Diabetes mellitus Raynaud disease Paternal Grandfather Diabetes mellitus Paternal Uncle Diabetes mellitus Surgical History History of bladder surgery Hx laparoscopic cholecystectomy Hx of section Hx of dilation and curettage Hx of hysterectomy Hx of tooth extraction Social History Household Members: Family Housing: House Alcohol intake: unknown Patient Tobacco Use Status: Former Tobacco user Second Hand Smoke Exposure: No Advance Directives: No Advance Directives Information Provided: No Meds Allergies Allergy/AdvReac Type Severity Reaction Status Date / Time albuterol Allergy Intermediate swelling Verified 12/23/21 15:16 tramadol Allergy Intermediate swelling Verified 12/23/21 15:16 buspirone [From BuSpar] Allergy Mild rash Verified 12/23/21 15:16 lamotrigine [From Lamictal] Allergy Mild Unknown Verified 12/23/21 15:16 naproxen Allergy Unknown anaphylaxis Verified 12/23/21 15:16 NSAIDS (Non-Steroidal Allergy Unknown ANAPHYLAXIS Verified 12/23/21 15:16 Anti-Inflamma [NSAIDS (NON-STEROIDAL ANTI-INFLAMMA] Penicillins [PENICILLINS] Allergy Unknown ANAPHYLAXIS Verified 12/23/21 15:16 methotrexate Allergy Rash Verified 12/23/21 15:16 Home Medications Medication Instructions Recorded Confirmed Last Taken Type acetaminophen 650 mg 1,300 mg PO Q12H 05/21/20 01/08/22 Unknown History tablet,extended release (Tylenol 8 Hour) cetirizine 10 mg tablet (Zyrtec) 10 mg PO DAILY 05/21/20 01/08/22 Unknown History paroxetine HCl 40 mg tablet (Paxil) 60 mg PO DAILY 05/21/20 01/08/22 Unknown History valacyclovir 1 gram tablet 1,000 mg PO DAILY 05/21/20 01/08/22 Unknown History (Valtrex) zolpidem 10 mg tablet 10 mg PO BEDTIME PRN 05/21/20 01/08/22 Unknown History losartan 50 mg tablet 50 mg PO DAILY 05/30/20 01/08/22 Unknown History loratadine 10 mg capsule 10 mg PO DAILY 06/05/20 01/08/22 Unknown History clonidine HCl 0.1 mg tablet 0.2 mg PO BEDTIME tab 11/04/21 01/08/22 Unknown History furosemide 20 mg tablet (Lasix) 20 mg PO DAILY tab 11/04/21 01/08/22 Unknown History oxycodone 10 mg tablet 10 mg PO Q6H PRN 11/04/21 01/08/22 Unknown History topiramate 100 mg tablet (Topamax) 100 mg PO DAILY 11/04/21 01/08/22 Unknown History ziprasidone HCl 20 mg capsule 60 mg PO BID 12/23/21 01/08/22 Unknown History (Geodon) pantoprazole 40 mg tablet,delayed 40 mg PO DAILY 01/08/22 01/08/22 Unknown History release (Protonix) Physical Exam Vital Signs and Narrative: Vital Signs: Last Vital Signs Temp 98.0 F 01/07/22 23:51 Pulse 69 01/08/22 00:30 Resp 16 01/08/22 00:30 BP 105/56 L 01/08/22 00:30 Pulse Ox 97 01/08/22 00:30 BMI result Body Mass Index 46.4 Const: General: cooperative and no acute distress Orientation/cons ciousness: patient oriented x3 Eyes: General: appearance normal, both eyes and all related structures Pupils: Equal, round and reactive pupils present Resp: Effort & Inspection: normal respiratory effort Auscultation: clear to auscultation bilaterally Cardio: Rate: regular rate Rhythm: regular rhythm GI: Palpation (GI): Soft to palpation Auscultation: normal bowel sounds Skin: General skin exam: no rashes or lesions noted Neuro: General: patient oriented x3 Cranial nerves: Yes Equal, round and reactive pupils present Cognition (Neuro): normal cognition Extrem: Other: Nonpitting anasarca General: Yes normal to inspection Results Labs CBC and Chem 7: 01/07/22 23:32 01/07/22 23:32 Labs: Laboratory Results - last 24 hr 01/07/22 01/07/22 01/07/22 22:38 22:38 23:32 MCV 84.6 MCH 27.2 MCHC 32.1 RDW 15.5 Plt Count 260 MPV 10.0 Immature Gran % (Auto) 0.4 Neut % (Auto) 67.7 Lymph % (Auto) 18.5 L [place] % (Auto) 8.9 Eos % (Auto) 3.8 Baso % (Auto) 0.7 Lymph # (Auto) 1.9 [place] # (Auto) 0.9 Eos # (Auto) 0.4 Baso # (Auto) 0.1 Abs Immat Gran (auto) 0.04 H Absolute Neuts (auto) 6.8 Absolute Nucleated RBC 0.000 Nucleated RBC % (auto) 0.0 Anion Gap Estim Creat Clear Calc Estimated GFR Random Glucose Calcium Total Bilirubin Direct Bilirubin AST ALT Alkaline Phosphatase Troponin I High Sens < 3.5 B-Natriuretic Peptide 83 Total Protein Albumin Lipase Urine Color Urine Appearance Urine pH Ur Specific [place] Urine Protein Urine Glucose (UA) Urine Ketones Urine Blood Urine Nitrite Ur Leukocyte Esterase Urine RBC Urine WBC Ur Squamous Epith Cells Urine Bacteria Influenza Type A (PCR) NEGATIVE Influenza Type B (PCR) NEGATIVE RSV RNA Qual (PCR) NEGATIVE SARS-CoV-2 RNA (RT-PCR) NEGATIVE 01/07/22 01/08/22 23:32 00:33 MCV MCH MCHC RDW Plt Count MPV Immature Gran % (Auto) Neut % (Auto) Lymph % (Auto) [place] % (Auto) Eos % (Auto) Baso % (Auto) Lymph # (Auto) [place] # (Auto) Eos # (Auto) Baso # (Auto) Abs Immat Gran (auto) Absolute Neuts (auto) Absolute Nucleated RBC Nucleated RBC % (auto) Anion Gap 13 Estim Creat Clear Calc 88.1 Estimated GFR > 60 Random Glucose 72 Calcium 8.9 D Total Bilirubin 0.2 Direct Bilirubin < 0.2 AST 12 D ALT 12 Alkaline Phosphatase 86 Troponin I High Sens B-Natriuretic Peptide Total Protein 6.3 L Albumin 3.6 Lipase 13 Urine Color YELLOW Urine Appearance HAZY Urine pH 6.0 Ur Specific [place] 1.025 Urine Protein NEG Urine Glucose (UA) NEG Urine Ketones NEG Urine Blood NEG Urine Nitrite POS H Ur Leukocyte Esterase 2+ H Urine RBC 0 Urine WBC 30-49 H Ur Squamous Epith Cells 3+ Urine Bacteria 4+ Influenza Type A (PCR) Influenza Type B (PCR) RSV RNA Qual (PCR) SARS-CoV-2 RNA (RT-PCR) Imaging Radiologist's Impressions: Impressions Chest X-Ray 01/07/22 22:25 IMPRESSION: Unremarkable chest exam. Assessment and Plan (1) Hypotension: Status: Acute (2) Anasarca: Status: Acute (3) UTI (urinary tract infection): Status: Acute Plan This 46-year-old female with past medical history of vasculitis on prednisone presents to the hospital sense of hypotension as generalized edema # hypotension - possibly secondary to polypharmacy as well as acute infection - patient on clonidine, losartan, as well as furosemide which may be leading to her low blood pressure - denies a positive UTI, with no other evidence of systemic infection, afebrile, leukocytosis, lactic acid normal - BP stable no significant intervention - will hold antihypertensives - monitor # anasarca - nonpitting - likely secondary to prednisone use - no evidence of kidney failure, no hypoalbuminemia - will obtain TSH given her history of autoimmune disease - Lasix at this time but may be stopped if it causes too much hypotension and/or not affect # UTI - UA positive - treat with IV antibiotics - follow cultures DVT prophylaxis: Lovenox Quality Stroke Does the patient have a stroke diagnosis?: No VTE Prior VTE?: No VTE Risk Level:: Medical - moderate - high VTE Device Contraindication: Treatment Not Indicated VTE Drug Contraindication: N/A - Med Ordered
[2022-01-08] MEDS: Enoxaparin Sodium 40 MG/0.4 ML SYRINGE SUBCUT ×2 (01:50→23:28)
[2022-01-08] MEDS: oxyCODONE HCl Immed Release 5 MG TABLET 10 MG PO ×3 (01:55→23:28)
[2022-01-08] MEDS: cefTRIAXone sodium 1 GM in 0.9 % Sodium Chloride 50 ML IV ×2 (01:56→23:27)
[2022-01-08 02:23] LABS: Lactic Acid 1.1 mmol/L (0.5-2.0)
[2022-01-08 06:48] LABS: MANUAL DIFF FLAG NO
[2022-01-08 06:56] LABS: Basophils Percent Auto 0.4 % (0-2); Eosinophils Absolute Auto 0.3 X10*3/uL (0.0-0.4); Eosinophils Percent Auto 3.3 % (0-4); Hematocrit 31.7 % (37.0-47.0); Hemoglobin 9.9 g/dl (12.0-16.0); Imm Gran Abs Auto 0.03 X10*3/uL (0.00-0.03); Imm Gran Pct Auto 0.3 % (0.0-0.4); Lymphocytes Absolute Auto 1.9 X10*3/uL (1.2-4.9); Lymphocytes Percent Auto 18.7 % (20-40); Mean Corpuscular HGB Conc 31.2 g/dl (31.0-35.0); Mean Corpuscular Hemoglobin 26.5 pg (27.0-33.0); Mean Platelet Volume 10.4 fL (9.4-12.3); Monocytes Absolute Auto 0.9 X10*3/uL (0.1-1.2); Monocytes Percent Auto 8.6 % (2-11); Neutrophils Absolute Auto 6.8 x10*3/uL (2.0-8.3); Neutrophils Percent Auto 68.7 % (45-73); Platelet Count 264 X10*3/uL (160-400); Red Blood Count 3.73 X10*6/uL (4.20-5.50); Red Cell Distribution Width 15.6 % (11.0-16.0)
--- NOTE | 2022-01-08 06:56 | PC.NURSE ---
report given to GRACIELA Negro
[2022-01-08 07:16] LABS: Anion Gap 14 (12-20); Blood Urea Nitrogen 12 mg/dL (9-16); Calcium 8.8 mg/dL (8.4-10.2); Carbon Dioxide 26 mmol/L (22-29); Chloride 106 mmol/L (96-108); Creatinine Clr Calc Pharmacy 82.4; Estimated Glomerular Filt Rate > 60; Glucose Random 76 mg/dL (60-115); Potassium 3.6 mmol/L (3.3-5.1); Sodium 142 mmol/L (135-145)
[2022-01-08 07:37] LABS: Thyroid Stimulating Hormone 3.28 uIU/mL (0.32-4.0)
[2022-01-08 07:42] LABS: Erythrocyte Sedimentation Rate 27 MM/HR (0-20)
--- NOTE | 2022-01-08 09:22 | PHA.MEDREC ---
Pharmacy Consult ? Medication Reconciliation Pharmacy has reviewed the medication reconciliation completed by nursing. Claim history not uptodate therefore I called pharmacy to confirm that patient was picking up medications. Ziprasidone enter incorrectly, should be 20 mg in AM and 40 mg at bedtime. Patient is of hydroxychloroquine 200 mg daily. Lasix is a half tab instead of full tab. Provider aware of changes on ordered medications. Lynn Darling, SohamD
[2022-01-08] MEDS: Docusate Sodium 100 MG CAPSULE PO (09:57)
[2022-01-08] MEDS: valACYclovir HCL 1,000 MG TABLET 1000 MG PO (09:57)
[2022-01-08] MEDS: Acetaminophen 325 MG TABLET 650 MG PO ×2 (09:58→20:16)
[2022-01-08] MEDS: Omeprazole 20 MG CAPSULE.DR PO (09:59)
[2022-01-08] MEDS: Topiramate 100 MG TABLET PO (09:59)
[2022-01-08] MEDS: Gabapentin 400 MG CAPSULE PO (10:00)
[2022-01-08] MEDS: Cholecalciferol (Vitamin D3) 25 MCG TABLET 50 MCG PO (10:00)
[2022-01-08] MEDS: Montelukast Sodium 10 MG TABLET PO (10:00)
[2022-01-08] MEDS: PARoxetine HCL 30 MG TABLET 60 MG PO (10:00)
[2022-01-08] MEDS: Loratadine 10 MG TABLET PO (10:00)
[2022-01-08] MEDS: Furosemide 40 MG/4 ML VIAL IVPUSH ×2 (10:01→20:16)
[2022-01-08] MEDS: 0.9 % Sodium Chloride Flush 3 ML SYRINGE IVFLUSH ×3 (10:01→20:17)
[2022-01-08] MEDS: Ziprasidone 20 MG CAPSULE PO (10:01)
--- NOTE | 2022-01-08 12:49 | MHC.CM.PN ---
CM ATTEMPTED TO SEE PT WHO WAS OUT OF ROOM CM WILL REVISIT
--- NOTE | 2022-01-08 13:04 | PC.NURSE ---
PT c/o itchiness at IV site. MD Morales made aware. Instructed to monitor.
[2022-01-08] MEDS: Ziprasidone 40 MG CAPSULE PO (20:15)
[2022-01-08] MEDS: Sennosides 8.6 MG TABLET PO (20:16)
[2022-01-08] MEDS: Zolpidem Tartrate 5 MG TABLET 10 MG PO (23:28)
[2022-01-09 03:41] VITALS: BP 120/64; PULSE 65; RESP 16; TEMP 36.9; O2SAT 95
[2022-01-09] MEDS: Omeprazole 20 MG CAPSULE.DR PO (05:56)
[2022-01-09 07:44] VITALS: BP 123/58; PULSE 69; RESP 18; TEMP 36.9; O2SAT 94
[2022-01-09] MEDS: Furosemide 40 MG/4 ML VIAL IVPUSH (08:14)
[2022-01-09] MEDS: 0.9 % Sodium Chloride Flush 3 ML SYRINGE IVFLUSH (08:14)
[2022-01-09] MEDS: oxyCODONE HCl Immed Release 5 MG TABLET 10 MG PO (08:15)
[2022-01-09] MEDS: Cholecalciferol (Vitamin D3) 25 MCG TABLET 50 MCG PO (08:15)
[2022-01-09] MEDS: Montelukast Sodium 10 MG TABLET PO (08:15)
[2022-01-09] MEDS: PARoxetine HCL 30 MG TABLET 60 MG PO (08:15)
[2022-01-09] MEDS: Ziprasidone 20 MG CAPSULE PO (08:15)
[2022-01-09] MEDS: valACYclovir HCL 1,000 MG TABLET 1000 MG PO (08:15)
[2022-01-09] MEDS: Gabapentin 400 MG CAPSULE PO (08:16)
[2022-01-09] MEDS: Loratadine 10 MG TABLET PO (08:16)
[2022-01-09] MEDS: Topiramate 100 MG TABLET PO (08:16)
--- NOTE | 2022-01-09 08:16 | PM.DS ---
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 Patient also complains of four-week history of generalized swelling in her face, hands, and legs.? Patient reports that this has been attributed to her vasculitis but she is concerned and is not convinced.? She denies any chest pain, no fever has significant chills, no shortness of breath, no cough.? No abdominal pain nausea or vomiting, no diarrheaa, has chronic constipation, no orthopnea.? She reports urinary frequency with no dysuria or urgency.? Weakness numbness or tingling.? Patient reports that she is on 20 mg of Lasix at baseline for lymphedema Arrival to the ED patient hemodynamically stable with no significant abnormal vitals except for a blood pressure of 103/42 Labs are significant for WBC count of 10.0, hemoglobin of 10.4, UA positive for nitrites, leukocyte Estrace and WBC Chest x-ray negative Patient will be admitted further evaluation Hospital course: Patient with know collagen vascular disease with positive LUCRETIA in the past and low compliment and is being treated vasculitis with prednisone and presented with generalized swelling that is not quite new..BMP was unremarkable and there was question of hypotension (lowest recorded systolic was 98) and also being treated for UTI. Patient was admitted and treated for UTI, blood pressure medications have been on hold, she has not had hypotension, swelling is overall better after IV lasix, she is on Ceftriaxone for UTI and will be changed to ceftin. She should follow up with her rheumatoligst for further medication adjustment, she is to continue Plaquenil. Time Spent with Patient Time attestation: Total time spent providing and/or coordinating discharge services: Discharge coordination time: Greater than 30 minutes Quality: Safe Use of Opioids Does Pt have an Active Cancer Diagnosis on the Problem List?: No Quality: Stroke Does the patient have a stroke diagnosis?: No Physical Exam Vital Signs: Vital Signs: Last Vital Signs Temp 98.4 F 01/09/22 07:44 Pulse 69 01/09/22 07:44 Resp 18 01/09/22 07:44 BP 123/58 L 01/09/22 07:44 Pulse Ox 94 01/09/22 07:44 BMI result Body Mass Index 46.4 DS: Data Data Completed and Pending Labs on day of discharge: Preliminary micro results at discharge 01/08/22 01:58 Blood Culture - Preliminary Blood - Venous No growth after 24 hours. 01/08/22 01:58 Blood Culture - Preliminary Blood - Venous No growth after 24 hours. Discharge Plan Discharge Anticipated Discharge Date/Time: 01/09/22 08:11 Patient Disposition: Home, Self-Care Discharge Diagnosis: UTI, Hypotenison Referrals: Physician,Unknown J [Primary Care Provider] - 1 Week Discharge Medications: New cefuroxime axetil 250 mg tablet 250 mg PO BID 5 Days Qty: 10 0RF furosemide [Lasix] 40 mg tablet 40 mg PO DAILY Qty: 30 0RF Continued oxybutynin chloride 15 mg tablet extended release 24hr 15 mg PO DAILY Qty: 28 6RF cholecalciferol (vitamin D3) 50 mcg (2,000 unit) capsule 50 mcg PO DAILY 30 Days Qty: 30 3RF gabapentin 400 mg capsule 400 mg PO DAILY Qty: 90 3RF Atrovent HFA 17 mcg/actuation HFA aerosol inhaler 2 puff PO TID Qty: 12.9 6RF montelukast 10 mg tablet 10 mg PO DAILY Qty: 28 3RF baclofen 10 mg tablet 10 mg PO BID Qty: 10 0RF pantoprazole [Protonix] 40 mg Tablet,Delayed Release (Dr/Ec) 40 mg PO BEDTIME ziprasidone HCl [Geodon] 40 mg capsule 1 cap PO BEDTIME oxycodone 5 mg tablet 5 mg PO Q6H PRN (Reason: Pain) losartan 25 mg Tablet 25 mg PO DAILY hydroxychloroquine 200 mg Tablet 200 mg PO DAILY loratadine 10 mg capsule 10 mg PO DAILY cetirizine [Zyrtec] 10 mg tablet 10 mg PO DAILY paroxetine HCl [Paxil] 40 mg tablet 60 mg PO DAILY zolpidem 10 mg tablet 10 mg PO BEDTIME PRN (Reason: Sleep) valacyclovir [Valtrex] 1 gram tablet 1,000 mg PO DAILY sennosides [Natural Senna Laxative] 8.6 mg tablet 8.6 mg PO BEDTIME Qty: 30 3RF topiramate [Topamax] 100 mg tablet 100 mg PO DAILY ziprasidone HCl [Geodon] 20 mg capsule 20 mg PO DAILY Rx Instructions: give with food (meal/snack)pt takes 20mg in am and 40 mg in pm Changed clonidine HCl 0.1 mg tablet 1 tab PO BEDTIME PRN (Reason: insomnia) Qty: 0 0RF Discontinued clonidine HCl 0.2 mg tablet 1 tab PO BEDTIME furosemide [Lasix] 20 mg tablet 10 mg PO DAILY Discharge Orders: Discharge Order (Routine); Ordered 01/09/22 Ordered By: Lew Jalloh Activity on Discharge: As tolerated Stand Alone Forms: Patient Portal Discharge page Care Plan Goals: Treatment of UTI, vasculitis Health Concerns: Vasculitis that is followed by a rheumatoliogst Plan of Treatment: take Ceftin for UTI, double Lasix dose Stop clonidine 0.2 mg, continue 0.1 at bedtime Follow up with your Rheumatoligst Double the dose of Lasix to 40 mg daily Assessment: as above Discharge Date/Time: 01/09/22 14:45
[2022-01-09] MEDS: Losartan Potassium 25 MG TABLET PO (10:13)
[2022-01-09 11:01] VITALS: BP 136/63; PULSE 74; RESP 18; TEMP 37.3; O2SAT 95
--- NOTE | 2022-01-09 15:58 | MHC.CM.PN ---
EMR REVIEWED, CM MET W/PT WHO IS A&O, PT REPORTS SHE LIVES W/19YO SON, IS INDE W/ALL CARE, DENIES USE OF DME/HOME SERVICES, PT VERIFIES PCP IS [facility], [facility] AND NO BOOSTER, PT COMPLETED A HCP PRIOR TO D/C NAMING HER S.O. MAURA FARMER [phone] HER HCA W/NO ALTERNATE, PT PROVIDED W/EDUCATION, ORIGINAL AND TWO COPIES, COPY UPLOADED TO [facility] AND PLACED IN CHART. D/C PLAN: HOME TODAY SELF CARE W/FAMILY FOR TRANSPORT
== END 2022-01-09 14:45 | disposition home or self-care (01) | DRG 207 ==
LOC: HO.ED 01-08 00:40 → HO.EDOVER 01-08 01:35 → HO.S3 01-08 13:14
PROVIDERS: Admitting Provider Internal Medicine; Emergency Provider Emergency Medicine; PCP Internal Medicine; Visit Provider Internal Medicine
DX: I95.2 Hypotension due to drugs (principal); E28.2 Polycystic ovarian syndrome; T50.915A Adverse effect of multiple unspecified drugs, medicaments and biological substances, initial encounter; N39.0 Urinary tract infection, site not specified; E66.01 Morbid (severe) obesity due to excess calories; M35.9 Systemic involvement of connective tissue, unspecified; I89.0 Lymphedema, not elsewhere classified; Z20.822 Contact with and (suspected) exposure to COVID-19; Z68.42 Body mass index [BMI] 45.0-49.9, adult; Z88.0 Allergy status to penicillin; Z88.5 Allergy status to narcotic agent; Z88.6 Allergy status to analgesic agent; Z79.52 Long term (current) use of systemic steroids; Z79.899 Other long term (current) drug therapy
CPT/HCPCS: 0241U; 36415; 71045; 80048; 80076; 81001; 83605; 83690; 83880; 84443; 84484; 85025; 85652; 86140; 87040; 87086; 93005; 99218; 99285; J0696; J1650; J1940

== ENCOUNTER 2022-02-17 14:08 | Outpatient (REF) | payer MEDICAID, SELFPAY ==
[2022-02-17 15:37] LABS: MANUAL DIFF FLAG NO
[2022-02-17 16:12] LABS: Basophils Absolute Auto 0.1 X10*3/uL (0.0-0.2); Basophils Percent Auto 1.1 % (0-2); Eosinophils Absolute Auto 0.4 X10*3/uL (0.0-0.4); Eosinophils Percent Auto 3.6 % (0-4); Hematocrit 36.1 % (37.0-47.0); Hemoglobin 11.5 g/dl (12.0-16.0); Imm Gran Abs Auto 0.05 X10*3/uL (0.00-0.03); Imm Gran Pct Auto 0.5 % (0.0-0.4); Lymphocytes Absolute Auto 1.5 X10*3/uL (1.2-4.9); Lymphocytes Percent Auto 14.7 % (20-40); Mean Corpuscular HGB Conc 31.9 g/dl (31.0-35.0); Mean Corpuscular Hemoglobin 26.4 pg (27.0-33.0); Monocytes Absolute Auto 0.9 X10*3/uL (0.1-1.2); Monocytes Percent Auto 8.6 % (2-11); Neutrophils Absolute Auto 7.4 x10*3/uL (2.0-8.3); Neutrophils Percent Auto 71.5 % (45-73); Platelet Count 340 X10*3/uL (160-400); Red Blood Count 4.35 X10*6/uL (4.20-5.50); Red Cell Distribution Width 14.7 % (11.0-16.0); White Blood Count 10.3 X10*3/uL (4.8-10.8)
[2022-02-17 16:39] LABS: Alanine Aminotransferase 13 U/L (0-31); Albumin Level 4.4 g/dL (3.5-5.0); Alkaline Phosphatase 106 U/L (39-117); Anion Gap 14 (12-20); Aspartate Amino Transferase 15 U/L (5-31); Bilirubin Total 0.3 mg/dL (0.0-1.0); Blood Urea Nitrogen 19 mg/dL (9-16); Calcium 9.3 mg/dL (8.4-10.2); Carbon Dioxide 28 mmol/L (22-29); Chloride 100 mmol/L (96-108); Estimated Glomerular Filt Rate 52; Glucose Random 106 mg/dL (60-115); Iron 29 mcg/dL (30-160); Percent Iron Saturation 7 % (15-50); Potassium 3.5 mmol/L (3.3-5.1); Sodium 138 mmol/L (135-145); Total Iron Binding Capacity 387 mcg/dL (228-428); Total Protein 7.4 g/dL (6.5-8.0); Unsaturated Iron Binding 358 ug/dL
[2022-02-17 17:00] LABS: Ferritin 41 ng/mL (10-250)
[2022-02-17 17:02] LABS: Vitamin B12 502 pg/mL (200-900)
== END 2022-02-17 14:09 | disposition home or self-care (01) ==
LOC: HO.LAB 14:08
PROVIDERS: Absent Provider Family Medicine; PCP Internal Medicine; Visit Provider Internal Medicine
DX: J45.909 Unspecified asthma, uncomplicated (principal); E66.9 Obesity, unspecified; I77.6 Arteritis, unspecified; I95.9 Hypotension, unspecified; R60.1 Generalized edema
CPT/HCPCS: 36415; 80053; 82607; 82728; 83540; 85025; 99212

== ENCOUNTER → 2022-03-11 10:20 | Outpatient (BNVA) | payer MEDICAID, SELFPAY | PROVIDERS: PCP Internal Medicine; Visit Provider Surgery Vascular Surgery | DX: I83.12 Varicose veins of left lower extremity with inflammation (principal) | CPT/HCPCS: 99202 ==

== ENCOUNTER 2022-04-23 13:06 | Outpatient (REF) | payer MEDICAID, SELFPAY ==
--- NOTE | ~2022-04-23 | US_ITS ---
EXAMINATION: US LOWER EXTREMITY VENOUS (REFLUX EXAM), BILATERAL CLINICAL INDICATION: Chronic venous insufficiency with lower extremity varicose veins COMPARISON: None. TECHNIQUE: Color flow triplex imaging and compression Doppler was performed to evaluate both the deep and the superficial systems bilaterally. To evaluate the superficial system, the examination was performed in the upright position. Color-flow Doppler ultrasound and compression ultrasound were utilized. In addition, maneuvers were utilized to demonstrate reflux. FINDINGS: 1. DEEP VENOUS ULTRASOUND OF THE RIGHT LOWER EXTREMITY: Common Femoral Vein: Compressible, normal respiratory variation and augmented flow. Femoral Vein: Compressible, normal color flow and augmentation. Popliteal Vein: Compressible, normal augmentation. Deep Reflux: There is no evidence of reflux in the deep system in either the common femoral vein or the popliteal vein. There is no evidence of a Crook's cyst. 2. SUPERFICIAL ULTRASOUND WITH DOPPLER OF RIGHT LOWER EXTREMITY: GREAT SAPHENOUS VEIN: Saphenofemoral Junction: 0.6 cm; Reflux: 0 ms Proximal Thigh: 0.5 cm; Reflux: 0 ms Mid Thigh: 0.2 cm; Reflux: 0 ms Above Knee: 0.4 cm; Reflux: 0 ms At Knee: 0.2 cm; Reflux: 0 ms Below Knee: 0.2 cm; Reflux: 0 ms Mid Calf: 0.2 cm; Reflux: 0 ms Ankle: 0.2 cm; Reflux: 0 ms DUPLICATED MEDIAL GREAT SAPHENOUS VEIN: Diameter: None Imaged Reflux: NA DUPLICATED LATERAL GREAT SAPHENOUS VEIN: Diameter: 0.3 cm Reflux: None SMALL SAPHENOUS VEIN: Proximal: 0.1 cm; Reflux: 0 ms Distal: Not visualized VEIN OF GIACOMINI: None Imaged. PERFORATORS: Location: None significant Size: NA Reflux: NA VARICOSITIES: Location: None Imaged Size: NA Reflux: NA 3. DEEP VENOUS ULTRASOUND OF THE LEFT LOWER EXTREMITY: Common Femoral Vein: Compressible, normal respiratory variation and augmented flow. Femoral Vein: Compressible, normal color flow and augmentation. Popliteal Vein: Compressible, normal augmentation. Deep Reflux: There is no evidence of reflux in the deep system in either the common femoral vein or the popliteal vein. There is no evidence of a Crook's cyst. 4. SUPERFICIAL ULTRASOUND WITH DOPPLER OF LEFT LOWER EXTREMITY: GREAT SAPHENOUS VEIN: Saphenofemoral Junction: 0.7 cm; Reflux: 0 ms Proximal Thigh: 0.5 cm; Reflux: 0 ms Mid Thigh: 0.2 cm; Reflux: 0 ms Above Knee: 0.3 cm; Reflux: 0 ms At Knee: 0.4 cm; Reflux: 0 ms Below Knee: 0.2 cm; Reflux: 0 ms Mid Calf: 0.1 cm; Reflux: 0 ms Ankle: 0.2 cm; Reflux: 0 ms DUPLICATED MEDIAL GREAT SAPHENOUS VEIN: Diameter: None Imaged Reflux: NA DUPLICATED LATERAL GREAT SAPHENOUS VEIN: Diameter: 0.3 cm Reflux: None SMALL SAPHENOUS VEIN: Proximal: Not visualized Distal: Not visualized VEIN OF GIACOMINI: None Imaged. PERFORATORS: Location: None significant Size: NA Reflux: NA VARICOSITIES: Location: None Imaged Size: NA Reflux: NA US/US venous duplex LE BI IMPRESSION: Right: No significant venous insufficiency or reflux Left: No significant venous insufficiency or reflux
== END 2022-04-23 13:07 | disposition home or self-care (01) ==
LOC: HO.US 13:06
PROVIDERS: Visit Provider Surgery Vascular Surgery
DX: I83.12 Varicose veins of left lower extremity with inflammation (principal)
CPT/HCPCS: 93970

== ENCOUNTER → 2022-08-10 12:41 | Outpatient (BNVA) | payer MEDICAID, SELFPAY | PROVIDERS: PCP Internal Medicine; Visit Provider Surgery Vascular Surgery | DX: M79.89 Other specified soft tissue disorders (principal); E66.01 Morbid (severe) obesity due to excess calories; Z68.41 Body mass index [BMI] 40.0-44.9, adult; Z79.52 Long term (current) use of systemic steroids | CPT/HCPCS: 99212 ==

== ENCOUNTER 2022-08-17 15:12 | Outpatient (REF) | payer MEDICAID, SELFPAY ==
--- NOTE | ~2022-08-17 | MM_ITS ---
EXAMINATION: MM SCREENING DIGITAL BREAST TOMOSYNTHESIS, BILATERAL CLINICAL INFORMATION: Screening. Asymptomatic. The lifetime risk of breast cancer based on the Tyrer-Cuzick Model is 7%. COMPARISON: Mammography: 09/21/2019, 08/30/2018, 09/28/2018, 09/15/2018 TECHNIQUE: Digital breast tomosynthesis is performed in both the craniocaudal and mediolateral oblique views along with computer-aided detection (CAD). Synthesized 2D images are generated from the tomosynthesis. FINDINGS: There are scattered areas of fibroglandular density (ACR BI-RADS breast composition Category b). There are no significant masses, abnormal calcifications, or other abnormalities. Parenchymal pattern is similar to prior studies. No developing density or architectural abnormality. No significant changes. MM/MM tomosynthesis screening BI IMPRESSION: No mammographic evidence of malignancy. ASSESSMENT: BI-RADS 1: Negative RECOMMENDATION: Routine annual mammography screening. This patient's information was entered into a reminder system with a target due date for their next mammogram.
== END 2022-08-17 15:13 | disposition home or self-care (01) ==
LOC: HO.MAMMO 15:12
PROVIDERS: Visit Provider Internal Medicine
DX: Z12.31 Encounter for screening mammogram for malignant neoplasm of breast (principal)
CPT/HCPCS: 77063; 77067

== ENCOUNTER → 2023-01-17 13:55 | Outpatient (BNVA) | payer MEDICAID, SELFPAY | PROVIDERS: PCP Internal Medicine; Visit Provider Physician Assistant ==

== ENCOUNTER → 2023-02-10 14:55 | Outpatient (BNVA) | payer MEDICAID, SELFPAY | PROVIDERS: PCP Internal Medicine; Visit Provider Physician Assistant Surgical ==

== ENCOUNTER 2023-02-10 15:44 | Emergency (ER) | payer MEDICAID, SELFPAY ==
--- NOTE | 2023-02-10 16:02 | ED.GENADULT ---
HPI - General Adult General Chief complaint: Nausea/Vomiting/Diarrhea Stated complaint: Vomiting/sent by dr Time Seen by Provider: 02/10/23 20:45 Source: patient Mode of arrival: ambulatory History of Present Illness HPI narrative: 47-year-old female who is currently undergoing the weight loss program here at [facility] states that she is on Chantix to stop smoking prior to her weight loss surgery and has been experiencing intermittent nausea and vomiting. She denies any associated GI or symptoms other than described above and denies any associated fever, chills, shortness of breath, chest pain/palpitations. Related Data Home Medications Medication Instructions Recorded Confirmed cetirizine 10 mg tablet (Zyrtec) 10 mg PO DAILY 05/21/20 03/18/22 valacyclovir 1 gram tablet 1,000 mg PO DAILY 05/21/20 03/18/22 (Valtrex) zolpidem 10 mg tablet 10 mg PO BEDTIME PRN Sleep 05/21/20 03/18/22 loratadine 10 mg capsule 10 mg PO DAILY 06/05/20 03/18/22 topiramate 100 mg tablet (Topamax) 100 mg PO DAILY 11/04/21 03/18/22 ziprasidone HCl 20 mg capsule 20 mg PO DAILY 12/23/21 03/18/22 (Geodon) hydroxychloroquine 200 mg tablet 200 mg PO DAILY 01/08/22 03/18/22 losartan 25 mg tablet 25 mg PO DAILY 01/08/22 03/18/22 oxycodone 5 mg tablet 5 mg PO Q6H PRN Pain 01/08/22 03/18/22 pantoprazole 40 mg tablet,delayed 40 mg PO BEDTIME 01/08/22 03/18/22 release (Protonix) ziprasidone HCl 40 mg capsule 1 cap PO BEDTIME 01/08/22 03/18/22 (Geodon) furosemide 40 mg tablet (Lasix) 40 mg PO DAILY 02/17/22 03/18/22 gabapentin 300 mg capsule 300 mg PO TID 03/11/22 03/18/22 prednisone 5 mg tablet 5 mg PO DAILY 03/11/22 03/18/22 paroxetine HCl 40 mg tablet (Paxil) 20 mg PO DAILY 02/10/23 Previous Rx's Medication Instructions Recorded oxybutynin chloride 15 mg 15 mg PO DAILY #28 tabs 07/23/20 tablet,extended release 24 hr cholecalciferol (vitamin D3) 50 50 mcg PO DAILY 30 days #30 caps 02/12/21 mcg (2,000 unit) capsule baclofen 10 mg tablet 10 mg PO BID #10 tabs 04/09/21 gabapentin 400 mg capsule 400 mg PO DAILY #90 caps 06/08/21 sennosides 8.6 mg tablet (Natural 8.6 mg PO BEDTIME constipation #30 09/09/21 Senna Laxative) tabs clonidine HCl 0.1 mg tablet 1 tab PO BEDTIME PRN insomnia #0 01/09/22 tabs ferrous sulfate 325 mg (65 mg 325 mg PO BID #60 tabs 03/18/22 iron) tablet (iron) fluticasone 250 mcg-salmeterol 50 1 inh inhalation Q12H Cough and 11/03/22 mcg/dose blistr powdr for wheezing 30 days #60 ea inhalation (Advair Diskus) ipratropium bromide 17 2 puff PO TID copd #12.9 grams 11/03/22 mcg/actuation HFA aerosol inhaler (Atrovent HFA) montelukast 10 mg tablet 10 mg PO BEDTIME #30 tabs 02/10/23 nitrofurantoin 100 mg PO Q12H 5 days #10 caps 02/10/23 monohydrate/macrocrystals 100 mg capsule (Macrobid) Allergies Allergy/AdvReac Type Severity Reaction Status Date / Time albuterol Allergy Intermediate swelling Verified 02/10/23 16:02 tramadol Allergy Intermediate swelling Verified 02/10/23 16:02 buspirone [From BuSpar] Allergy Mild rash Verified 02/10/23 16:02 lamotrigine [From Lamictal] Allergy Mild Unknown Verified 02/10/23 16:02 naproxen Allergy Unknown anaphylaxis Verified 02/10/23 16:02 NSAIDS (Non-Steroidal Allergy Unknown ANAPHYLAXIS Verified 02/10/23 16:02 Anti-Inflamma [NSAIDS (NON-STEROIDAL ANTI-INFLAMMA] Penicillins [PENICILLINS] Allergy Unknown ANAPHYLAXIS Verified 02/10/23 16:02 methotrexate Allergy Rash Verified 02/10/23 16:02 Review of Systems Review of Systems: Pertinent positives and negatives as stated in [facility] Past Medical History Source: nursing notes reviewed Medical History Allergic rhinitis Asthma Cough Morbid obesity Obesity (BMI 30-39.9) PCOS (polycystic ovarian syndrome) Sinusitis Snoring Somnolence, daytime Vitamin D deficiency Surgical History History of bladder surgery Hx laparoscopic cholecystectomy Hx of section Hx of dilation and curettage Hx of hysterectomy Hx of tooth extraction Family History Family History Father Heart disease Mother Diabetes mellitus Raynaud disease Paternal Grandfather Diabetes mellitus Paternal Uncle Diabetes mellitus Social History Social History Household Members: Children Housing: House Do you presently have visiting nurse or other home services: No (appointment for FAMILY RESOURCE COORDINATOR, in progress) Alcohol intake: current Alcohol intake frequency: holidays/special occasions only Alcohol type: wine Patient Tobacco Use Status: Current someday Tobacco user Tobacco use type: Cigarette Cigarettes Per Day: 4 Second Hand Smoke Exposure: No Substance Use Type: Marijuana Advance Directives: Yes Advance Directives on File: Yes Advance Directives Date on File: 01/12/22 service: No Current occupational status: unemployed Physical Exam ED Vital Signs: Vital Signs - 24 hr 02/10/23 16:03 02/10/23 19:48 02/10/23 21:22 Temperature 96.1 F L 98.1 F 98.3 F Pulse Rate 91 82 74 Respiratory Rate 18 14 16 Blood Pressure 151/78 H 132/62 125/65 Pulse Oximetry 93 97 96 Oxygen Delivery Method Room Air Room Air Room Air BMI result Body Mass Index 44.1 VITAL SIGNS: Reviewed. GENERAL: Elevated BMI, Well developed, well nourished, in no acute distress. HEAD: Normocephalic/atraumatic EYES: PERRLA, EOMI LUNGS: Normal breath sounds. No adventitious sounds or accessory muscle use. SpO2<96> CARDIOVASCULAR: Regular rate and rhythm without noted murmurs, no JVD or lower extremity edema. ABDOMEN: Soft, non-tender, non-distended with bowel sounds. MUSCULOSKELETAL: No tenderness, deformities, or effusions noted on gross inspection. EXTREMITIES: No cyanosis, clubbing or edema. SKIN: Inspection of the skin reveals no rashes NEUROLOGIC: Alert and oriented x 4. Strength and sensation to light touch were grossly intact x 4. Course Course Course Narrative: This is an RME: Additional HPI, ROS, PE not included below will be deferred to primary provider. This is a 38-gnqm-lct-female, with a past medical history of chronic back pain, bipolar disease, PCOS, morbid obesity, asthma, leukocytoclastic vasculitis, presenting to the emergency department from bariatric surgery consultation appointment with Dr. Portillo, with complaints of vomiting, epigastric pain, and diarrhea x 1 week. She has been vomiting 4 times a day for the last week. Pt was unable to get to PCP today so she was told to come to the ER. No bloody or black stool. Plan: Labs, UA ordered Medications Administered Discontinued Medications Generic Name Dose Route Start Last Admin Trade Name Freq PRN Reason Stop Dose Admin Nitrofurantoin Macrocrystals 100 mg 02/10/23 21:20 02/10/23 21:32 Nitrofurantoin Monohyd/M-Cryst 100 Mg Capsule PO 02/10/23 21:21 100 mg ONCE ONE Administration Ondansetron HCl 4 mg 02/10/23 21:35 02/10/23 21:39 Ondansetron Odt 4 Mg Tab.Rapdis TRANSLINGU 02/10/23 21:36 4 mg ONCE ONE Administration Medical Decision Making Medical Decision Making MDM Narrative: 47-year-old female with history and clinical presentation, DDX: Gastroenteritis, UTI, medication side effect, I doubt any obstruction or intra-abdominal infection, I doubt any pneumonia. I reviewed all investigations and on re-evaluation of the patient she is resting comfortably in the gurney, playing video games and has tolerated drinking Coca-Cola since her arrival in the emergency room. On review of her hematologic steady she has a chronic leukocytosis without evidence infection, she is afebrile. No evidence of anemia. Chemistries are grossly within normal limits, there is evidence of possible urinary tract infection and patient will be treated with a course of Macrobid, prescribed as needed antinausea medication as I do feel that the primary source of the nausea and vomiting is secondary to medication side effect. However the benefit smoking cessation outweighs recommendations to stop Chantix at this time. Differential Diagnosis Please see the discussion above Lab Data Please see the discussion above 02/10/23 16:25 02/10/23 16:25 Labs: Lab Results 02/10/23 02/10/23 02/10/23 Range/Units 16:25 16:25 16:33 WBC 16.3 H (4.8-10.8) X10*3/uL RBC 4.86 (4.20-5.50) X10*6/uL Hgb 13.6 (12.0-16.0) g/dl Hct 40.9 (37.0-47.0) % MCV 84.2 (80.0-98.0) fL MCH 28.0 (27.0-33.0) pg MCHC 33.3 (31.0-35.0) g/dl RDW 13.7 (11.0-16.0) % Plt Count 406 H (160-400) X10*3/uL MPV 9.5 (9.4-12.3) fL Immature Gran % (Auto) 0.4 (0.0-0.4) % Neut % (Auto) 75.0 H (45-73) % Lymph % (Auto) 14.1 L (20-40) % Hartley % (Auto) 8.2 (2-11) % Eos % (Auto) 1.5 (0-4) % Baso % (Auto) 0.8 (0-2) % Lymph # (Auto) 2.3 (1.2-4.9) X10*3/uL Hartley # (Auto) 1.3 H (0.1-1.2) X10*3/uL Eos # (Auto) 0.3 (0.0-0.4) X10*3/uL Baso # (Auto) 0.1 (0.0-0.2) X10*3/uL Abs Immat Gran (auto) 0.07 H (0.00-0.03) X10*3/uL Absolute Neuts (auto) 12.2 H (2.0-8.3) x10*3/uL Absolute Nucleated RBC 0.000 (0.0-0.012) X10*3/uL Nucleated RBC % (auto) 0.0 (0.0-0.2) /100WBC Sodium 138 (135-145) mmol/L Potassium 3.5 (3.3-5.1) mmol/L Chloride 101 (96-108) mmol/L Carbon Dioxide 25 (22-29) mmol/L Anion Gap 16 (12-20) BUN 19 H (9-16) mg/dL Creatinine 1.04 (0.5-1.4) mg/dL Estim Creat Clear Calc 71.7 Estimated GFR 57 Random Glucose 70 (60-115) mg/dL Calcium 9.7 (8.4-10.2) mg/dL Magnesium 2.0 (1.6-2.6) mg/dL Total Bilirubin 0.3 (0.0-1.0) mg/dL Direct Bilirubin 0.1 (0.0-0.5) mg/dL AST 16 (5-31) U/L ALT 14 (0-31) U/L Alkaline Phosphatase 99 (39-117) U/L Total Protein 7.8 (6.5-8.0) g/dL Albumin 4.2 (3.5-5.0) g/dL Lipase 22 (8-78) U/L Urine Color Yellow Urine Appearance Cloudy Urine pH 5.5 (5.0-9.0) Ur Specific [place] 1.020 (1.005-1.025) Urine Protein Negative (Neg-Trace) mg/dL Urine Glucose (UA) Negative (Negative) mg/dL Urine Ketones Negative (Negative) mg/dL Urine Blood Negative (Negative) Urine Nitrite Negative (Negative) Ur Leukocyte Esterase Trace H (Negative) Urine RBC 0-2 (0-2) /HPF Urine WBC 0-5 (0-5) /HPF Ur Squamous Epith Cells 6-10 (0-2) /HPF Urine Bacteria 1+ (None Seen) Hyaline Casts 0-2 (0-2) /LPF External Record Review External record reviewed: Outpatient record and Prior outpatient labs Chronic Conditions Patient?s care impacted by: Other Obesity Discharge Plan Discharge Clinical Impression: UTI (urinary tract infection) Patient Disposition: Home, Self-Care Instructions: Urinary Tract Infection in Women (ED) Additional Instructions: 1. Resume all home medications as prescribed. 2. Complete the entire course of antibiotics as ordered. 3. Follow-up with primary care provider. Return to the ER for any worsening symptoms. Prescriptions: New nitrofurantoin monohyd/m-cryst [Macrobid] 100 mg capsule 100 mg PO Q12H 5 Days Qty: 10 0RF Rx Instructions: must administer with a meal/food No Action oxybutynin chloride 15 mg tablet extended release 24hr 15 mg PO DAILY Qty: 28 6RF cholecalciferol (vitamin D3) 50 mcg (2,000 unit) capsule 50 mcg PO DAILY 30 Days Qty: 30 3RF gabapentin 400 mg capsule 400 mg PO DAILY Qty: 90 3RF fluticasone propion-salmeterol [Advair Diskus] 250-50 mcg/dose blister with device 1 inh inhalation Q12H 30 Days Qty: 60 1RF Atrovent HFA 17 mcg/actuation HFA aerosol inhaler 2 puff PO TID Qty: 12.9 1RF montelukast 10 mg tablet 10 mg PO BEDTIME Qty: 30 1RF baclofen 10 mg tablet 10 mg PO BID Qty: 10 0RF ferrous sulfate [iron] 325 mg (65 mg iron) Tablet 325 mg PO BID Qty: 60 3RF pantoprazole [Protonix] 40 mg Tablet,Delayed Release (Dr/Ec) 40 mg PO BEDTIME ziprasidone HCl [Geodon] 40 mg capsule 1 cap PO BEDTIME oxycodone 5 mg tablet 5 mg PO Q6H PRN (Reason: Pain) losartan 25 mg Tablet 25 mg PO DAILY hydroxychloroquine 200 mg Tablet 200 mg PO DAILY clonidine HCl 0.1 mg tablet 1 tab PO BEDTIME PRN (Reason: insomnia) Qty: 0 0RF loratadine 10 mg capsule 10 mg PO DAILY cetirizine [Zyrtec] 10 mg tablet 10 mg PO DAILY zolpidem 10 mg tablet 10 mg PO BEDTIME PRN (Reason: Sleep) valacyclovir [Valtrex] 1 gram tablet 1,000 mg PO DAILY paroxetine HCl [Paxil] 40 mg tablet 20 mg PO DAILY sennosides [Natural Senna Laxative] 8.6 mg tablet 8.6 mg PO BEDTIME Qty: 30 3RF topiramate [Topamax] 100 mg tablet 100 mg PO DAILY furosemide [Lasix] 40 mg tablet 40 mg PO DAILY Rx Instructions: pt uses 60mg as needed for swelling. ziprasidone HCl [Geodon] 20 mg capsule 20 mg PO DAILY Rx Instructions: give with food (meal/snack)pt takes 20mg in am and 40 mg in pm prednisone 5 mg tablet 5 mg PO DAILY gabapentin 300 mg capsule 300 mg PO TID Referrals: De Jesus-Steven,Aaron J, MD [Primary Care Provider] -
[2023-02-10 16:03] VITALS: BP 151/78; PULSE 91; RESP 18; TEMP 35.6; O2SAT 93; BMI 45.1
[2023-02-10 19:48] VITALS: BP 132/62; PULSE 82; RESP 14; TEMP 36.7; O2SAT 97; BMI 44.1
[2023-02-10 21:22] VITALS: BP 125/65; PULSE 74; RESP 16; TEMP 36.8; O2SAT 96
--- NOTE | 2023-02-10 21:24 | MHC.EDTECH ---
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
== END 2023-02-10 21:48 | disposition home or self-care (01) ==
PROVIDERS: Emergency Provider Student in an Organized Health Care Education/Training Program; PCP Internal Medicine
DX: N39.0 Urinary tract infection, site not specified (principal); R11.2 Nausea with vomiting, unspecified; F17.210 Nicotine dependence, cigarettes, uncomplicated; Z79.899 Other long term (current) drug therapy
CPT/HCPCS: 36415; 80048; 80076; 81001; 83690; 83735; 85025; 99202; 99283

== ENCOUNTER 2023-03-08 16:29 | Outpatient (AMB) | payer MEDICAID, SELFPAY ==
[2023-03-08 16:32] VITALS: BP 138/63; PULSE 84; BMI 45.0
--- NOTE | 2023-03-08 16:32 | A.OFFVIS_ITS ---
Intake Vital Signs 03/08/23 16:32 Height 4 ft 11 in Weight 222 lb 10.67 oz BMI 45.0 BP 138/63 Blood Pressure Location Lt brachial Position Sitting Pulse 84 Intake Visit Reasons: follow up Intake Note: Zee presents in the office as a follow up. CC: Nausea and vomiting, she states that she gets pains in the stomach. She feels like her n/v was from taking the chantix. Now from Vomiting so much that her body just knows to vomit. State Editor Required: No Allergies albuterol Allergy (Intermediate, Verified 02/10/23 16:02) swelling tramadol Allergy (Intermediate, Verified 02/10/23 16:02) swelling buspirone [From BuSpar] Allergy (Mild, Verified 02/10/23 16:02) rash lamotrigine [From Lamictal] Allergy (Mild, Verified 02/10/23 16:02) Unknown naproxen Allergy (Unknown, Verified 02/10/23 16:02) anaphylaxis NSAIDS (Non-Steroidal Anti-Inflamma [NSAIDS (NON-STEROIDAL ANTI-INFLAMMA] Allergy (Unknown, Verified 02/10/23 16:02) ANAPHYLAXIS Penicillins [PENICILLINS] Allergy (Unknown, Verified 02/10/23 16:02) ANAPHYLAXIS methotrexate Allergy (Verified 02/10/23 16:02) Rash HPI follow up HPI Details LAST VISIT GERD (gastroesophageal reflux disease) Patient reports occasional postprandial abdominal acid reflux. Denies any dyspepsia dysphagia or odynophagia. Patient does reports to feel nauseous, however denies any vomiting. Patient reports that she is unable to move her bowels daily. Patient reports that her acid reflux is usually when she feels constipated. Patient reports that she is taking pantoprazole to help her with acid reflux, she reports that sometimes it helps and sometimes does not. I will have her hold pantoprazole for 2 weeks and come back to the office in 2 weeks for H pylori testing. There is certain food that upset her stomach more than others. Sometimes fried food, sauces or spicy food aggravate her symptoms. Discussed with patient the importance of avoiding dietary triggers as well as late night snacking. Staying upright for minimal 3 hours after meals. Chronic idiopathic constipation Chronic history of constipation. Patient has back pains and has been taking oxycodone often for that. Patient was also on dicyclomine in the past which slo wed down the bowel motility. I will start her on Citrucel and Senokot. Patient will call me in 2 weeks if this not going to be effective. Discussed with patient the importance to moving her bowels and emptying them completely. Abdominal discomfort Patient reports of right upper and left upper quadrant pain, cramping. Patient reports that this happens usually if she does not have a bowel movement in 2 or 3 days. Most likely gas trapping, however we will check her liver panel, check transglutaminase is. Hopefully if patient starts moving her bowels better her pain will improve. I will see her in 5 weeks, sooner on as needed basis. Patient is agreeable to this plan and verbalizes understanding of instructions. She was given the opportunity to ask questions and all questions answered. ? Thank you for allowing me to participate in her care Plan Orders Orders Liver Panel 09/09/21 Z12.11 Thyroglobulin & Antibody 09/09/21 R79.89 Transglutaminase IgA 09/09/21 R10.11 Transglutaminase Ab IgG 09/09/21 R14.0 H Pylori Breath Test 09/09/21 Medications New sennosides (Natural Senna Laxative) 8.6 mg PO BEDTIME 30 tabs 3RF constipation K59.00 methylcellulose (laxative) (Citrucel) take it with full glass of water 500 mg PO DAILY 30 tabs 2RF K59.00 Discontinued dicyclomine Discontinued Reason: Patient Completed Course 20 mg PO TID PRN 20 tabs 0RF cramping oxycodone Patient may request fewer tablets than prescribed Discontinued Reason: Patient Completed Course 5 mg PO BEDTIME PRN 5 tabs 0RF pain TODAY'S VISIT: Patient is here today for follow-up. Patient reports that since last time I have seen her she continues to have epigastric discomfort. Patient states that she is having nausea and occasionally vomiting. Patient reports dyspepsia without dysphagia or odynophagia. Patient states that her abdomen gets bloated after eating meals. Patient reports that she is moving her bowels better when she takes Senokot. However she does not take the medications she will be constipated. Patient denies melena, hematochezia, unintentional weight loss or ribbon like stools. Patient denies is peptic, dysphagia or odynophagia. [facility] Medical History Allergic rhinitis Asthma Cough Morbid obesity Obesity (BMI 30-39.9) PCOS (polycystic ovarian syndrome) Sinusitis Snoring Somnolence, daytime Vitamin D deficiency Surgical History History of bladder surgery Hx laparoscopic cholecystectomy Hx of section Hx of dilation and curettage Hx of hysterectomy Hx of tooth extraction Family History Father Heart disease Mother Diabetes mellitus Raynaud disease Paternal Grandfather Diabetes mellitus Paternal Uncle Diabetes mellitus Social History Household Members: Children Housing: House Do you presently have visiting nurse or other home services: No (appointment for [employer], in progress) Alcohol intake: current Alcohol intake frequency: holidays/special occasions only Alcohol type: wine Patient Tobacco Use Status: Current someday Tobacco user Tobacco use type: Cigarette Cigarettes Per Day: 4 Second Hand Smoke Exposure: No Substance Use Type: Marijuana Advance Directives Date on File: 01/12/22 service: No Current occupational status: unemployed Review of Systems Const Denies weight gain and Denies weight loss ENT Reports no additional complaints, Denies dysphagia and Denies odynophagia Card Reports no additional complaints Resp Reports no additional complaints GI Denies abdominal pain, Denies belching, Denies melena, Denies bloating, Denies change in bowel habits, Denies dysphagia, Denies excessive flatus, Denies dyspepsia, Denies heartburn, Denies diarrhea, Denies loose stools, Reports nausea, Denies odynophagia and Reports vomiting (Occasional) Reports no additional complaints Musc Reports no additional complaints Neuro Reports no additional complaints Psych Reports no additional complaints Endo Reports no additional complaints Physical Exam Vital Signs: Last Vital Signs Pulse 84 03/08/23 16:32 BP 138/63 03/08/23 16:32 BMI result Body Mass Index 45.0 Const General: healthy appearing, no acute distress and well developed Nutritional Appearance: obese Orientation/consciousness: patient oriented x3 HEENT Head: Yes normal to inspection, Yes normocephalic and Yes atraumatic Face and sinus: Yes normal facial exam Mouth: Normal oral and palatal mucosa present Throat: Yes posterior oropharynx normal, Yes tonsils normal and Yes uvula midline Eyes General: appearance normal, both eyes and all related structures Neck Neck: Yes normal visual inspection, Yes full ROM and Yes trachea midline Thyroid: Thyroid normal Resp Effort & Inspection: normal respiratory effort, able to speak in complete sentences, no tracheal deviation and symmetric chest movement Auscultation: clear to auscultation bilaterally Cardio Rate: regular rate Heart sounds: S1 normal heart sound present and S2 normal heart sound present GI Inspection: Yes normal to inspection, No distended and Yes obesity Palpation (GI): Soft to palpation, not firm, nontender and No hepatosplenomegaly present Auscultation: normal bowel sounds General: Yes no CVA tenderness Back/Spine/Pelvis Back: no CVA tenderness Skin General skin exam: elasticity normal, turgor normal and dry skin Neuro General: patient oriented x3 Psych Appearance: grossly normal Mental Status: mental status grossly normal Speech and movement: Normal speech and movement present Affect: normal affect Assessment & Plan Assessment & Plan (1) Abdominal pain: Code(s): R10.9 - Unspecified abdominal pain Qualifiers: Abdominal location: generalized Qualified Code(s): R10.84 - Generalized abdominal pain Plan: Patient reports abdominal pain and bloating. Negative exam. Will send patient for CT scan to rule out colitis, diverticulitis, pancreatitis. Patient denies any nausea or vomiting. I suspect that this is related to her not emptying her bowels completely. Most likely related to her postprandial abdominal bloating, gas trapping pain (2) GERD (gastroesophageal reflux disease): Code(s): K21.9 - Gastro-esophageal reflux disease without esophagitis Qualifiers: Esophagitis presence: esophagitis presence not specified Qualified Code(s): K21.9 - Gastro-esophageal reflux disease without esophagitis Plan: Will start patient on Nexium. Patient was encouraged to avoid dietary triggers in late night snacking. Staying upright for minimum 3 hours after meals discussed patient. (3) Constipation: Code(s): K59.00 - Constipation, unspecified Qualifiers: Constipation type: slow transit constipation Qualified Code(s): K59.01 - Slow transit constipation Plan: Patient was encouraged to take Citrucel and Senokot every day to help her move her bowels better. Patient was also encouraged to increase fluid intake and activity to promote better bowel motility. I will see patient in 2 months, sooner on as needed basis. Patient is agreeable to this plan and verbalizes understanding of instructions. She was given the opportunity to ask questions and all questions answered. Thank you for allowing me to participate in her care Orders: Orders CT abdomen pelvis w IV con 03/08/23 R10.9 - Unspecified abdominal pain Blood Urea Nitrogen 03/08/23 R10.9 - Unspecified abdominal pain Creatinine 03/08/23 R10.9 - Unspecified abdominal pain Medications: New esomeprazole magnesium (Nexium) 40 mg PO DAILY 30 caps 5RF K21.9 - Gastro- esophageal reflux disease without esophagitis methylcellulose (laxative) (Citrucel) take it with full glass of water 500 mg PO DAILY 90 tabs 2RF K59.00 - Constipation, unspecified sennosides (Natural Senna Laxative) 8.6 mg PO BEDTIME 90 tabs 3RF constipation K59.00 - Constipation, unspecified Coding Level of Care Code Est Pt Level 4 (29414) Diagnoses Abdominal pain R10.84 Abdominal location: generalized GERD (gastroesophageal reflux disease) K21.9 Esophagitis presence: esophagitis presence not specified Constipation K59.01 Constipation type: slow transit constipation Time Spent (min) 35 Comment 25 minutes spent with patient and additional 10 minutes spent reviewing her records
== END 2023-03-08 16:53 | disposition home or self-care (01) ==
PROVIDERS: PCP Internal Medicine; Visit Provider Nurse Practitioner Family
DX: R10.84 Generalized abdominal pain (principal); K21.9 Gastro-esophageal reflux disease without esophagitis; K59.01 Slow transit constipation
CPT/HCPCS: 99214

== ENCOUNTER 2023-03-08 16:29 | Outpatient (REF) | payer MEDICAID, SELFPAY ==
[2023-03-08 18:22] LABS: Blood Urea Nitrogen 10 mg/dL (9-16); Estimated Glomerular Filt Rate 55
== END 2023-03-08 16:30 | disposition home or self-care (01) ==
LOC: HO.LAB 16:29
PROVIDERS: PCP Internal Medicine; Visit Provider Nurse Practitioner Family
DX: K59.01 Slow transit constipation (principal); K21.9 Gastro-esophageal reflux disease without esophagitis; R10.84 Generalized abdominal pain
CPT/HCPCS: 36415; 82565; 84520; 99214

== ENCOUNTER 2023-04-19 13:49 | Outpatient (REF) | payer MEDICAID, SELFPAY ==
--- NOTE | ~2023-04-19 | CT_ITS ---
EXAMINATION: CT ABDOMEN AND PELVIS WITH CONTRAST CLINICAL INFORMATION: Abdominal pain. COMPARISON: CT of abdomen and pelvis from 02/04/2021 TECHNIQUE: Multidetector volumetric images were obtained from the superior aspect of the liver through the pubic symphysis following administration 85 mL of Omnipaque 350 intravenous contrast. Sagittal and coronal reformatted images were obtained on the technologist's workstation. Oral contrast: No This CT examination was performed using dose optimization techniques as appropriate, variously including the following: *Automated exposure control *Adjustment of mA and/or kV according to patient size (this includes techniques or standardized protocols for targeted exams where dose is matched to indication/reason for exam; i.e. extremities or head) *Use of iterative reconstruction technique DLP: 610 mGy-cm FINDINGS: LOCALIZER IMAGES: Obese body habitus. Cholecystectomy clips are present in the right upper quadrant the abdomen. Normal bowel gas pattern. LUNG BASES: No pulmonary consolidation or pleural effusion. The heart size is normal. Mitral valve annular calcification is noted. LIVER: Mild hepatomegaly. No focal liver lesion. GALLBLADDER AND BILIARY TREE: Gallbladder is surgically absent. No dilated bile ducts. PANCREAS: Normal. No edema, pancreatic ductal dilatation or mass. SPLEEN: Normal. ADRENAL GLANDS: Normal. KIDNEYS AND URETERS: The kidneys have normal size and enhance symmetrically. No perinephric edema or mass. No urolithiasis or hydroureteronephrosis. BLADDER: Normal. No calculi or wall thickening. BOWEL AND PERITONEUM: Stomach is unremarkable. No dilated bile ducts. The appendix is normal. Submucosal fat attenuation within the wall of the ascending and transverse colon. This can represent normal variation, particularly in patient's with obesity, and does not necessarily imply sequela of old, inactive inflammatory bowel disease. No pericolonic fat stranding. No abdominal free fluid or pneumoperitoneum. ABDOMINAL WALL: Small fat-containing abdominal hernia is unchanged. VASCULATURE: Normal. LYMPH NODES: No pathologic sized lymph nodes in the abdomen or pelvis. No inguinal lymphadenopathy. PELVIC VISCERA: Status post hysterectomy. No adnexal mass or pelvic free fluid. MUSCULOSKELETAL: Unremarkable. CT/CT abdomen pelvis w IV con IMPRESSION: * No acute imaging abnormalities in the abdomen or pelvis compared to 02/04/2021. * Cholecystectomy. No dilated bile ducts. * Mild hepatomegaly is noted in this patient of large body habitus. * The finding of submucosal fat attenuation in the wall of the colon can represent normal variation, particularly in patient's of obese body habitus. There is no imaging evidence of an acute inflammatory or obstructive process along the gastrointestinal tract. The appendix is normal. * Small fat-containing umbilical hernia is unchanged.
[2023-04-19] MEDS: Barium Sulfate Oral (Berry) 450 ML ORAL.SUSP 900 ML PO (15:54)
[2023-04-19] MEDS: iohexoL 350 MG/ML 100 ML INFUS..BTL IV (15:55)
== END 2023-04-19 13:50 | disposition home or self-care (01) ==
LOC: HO.CT 13:49
PROVIDERS: PCP Internal Medicine; Visit Provider Nurse Practitioner Family
DX: R10.9 Unspecified abdominal pain (principal)
CPT/HCPCS: 74177; Q9967

== ENCOUNTER 2023-05-25 15:20 | Outpatient (AMB) | payer MEDICAID, SELFPAY ==
--- NOTE | 2023-05-25 15:29 | MHC.OFFVIS ---
Intake Vital Signs 05/25/23 15:33 Height 4 ft 11 in Weight 227 lb BMI 45.8 BP 130/66 Blood Pressure Location Lt brachial Position Sitting Pulse 93 Intake Visit Reasons: 2 months follow up. Intake Note: Patient follow up Patient denies any GI issues. Last tuesday patient was really dizzy and she fell. Specialty Development Consultant Required: No Accompanied by: Friend Allergies albuterol Allergy (Intermediate, Verified 05/25/23 15:29) swelling tramadol Allergy (Intermediate, Verified 05/25/23 15:29) swelling buspirone [From BuSpar] Allergy (Mild, Verified 05/25/23 15:29) rash lamotrigine [From Lamictal] Allergy (Mild, Verified 05/25/23 15:29) Unknown naproxen Allergy (Unknown, Verified 05/25/23 15:29) anaphylaxis NSAIDS (Non-Steroidal Anti-Inflamma [NSAIDS (NON-STEROIDAL ANTI-INFLAMMA] Allergy (Unknown, Verified 05/25/23 15:29) ANAPHYLAXIS Penicillins [PENICILLINS] Allergy (Unknown, Verified 05/25/23 15:29) ANAPHYLAXIS methotrexate Allergy (Verified 05/25/23 15:29) Rash HPI 2 months follow up. HPI Details LAST VISIT Abdominal pain Patient reports abdominal pain and bloating. Negative exam. Will send patient for CT scan to rule out colitis, diverticulitis, pancreatitis. Patient denies any nausea or vomiting. I suspect that this is related to her not emptying her bowels completely. Most likely related to her postprandial abdominal bloating, gas trapping pain GERD (gastroesophageal reflux disease) Will start patient on Nexium. Patient was encouraged to avoid dietary triggers in late night snacking. Staying upright for minimum 3 hours after meals discussed patient. Constipation Patient was encouraged to take Citrucel and Senokot every day to help her move her bowels better. Patient was also encouraged to increase fluid intake and activity to promote better bowel motility. I will see patient in 2 months, sooner on as needed basis. Patient is agreeable to this plan and verbalizes understanding of instructions. She was given the opportunity to ask questions and all questions answered. TODAY'S VISIT Patient is here today for follow-up and to discuss CT scan results. Patient reports that she stop taking Senokot as it was making her stools worse. Patient states that she had increase in diarrhea. Patient never received Citrucel from pharmacy. Patient reports that she frequently will have postprandial loose stools depending on what she eats. History of cholecystectomy. Patient states that she started taking Nexium and has been feeling better. Patient has no acid reflux. Denies dyspepsia, dysphagia or odynophagia. Patient also denies any nausea or vomiting. Patient believes that her nausea and vomiting were contributed to taking Chantix. Patient stopped taking Chantix, however unfortunately now she started smoking again. Patient has not return for her appointment with bariatric surgeons due to post bladder suspension surgery. Patient states that she needs to have repair as she had mild complications. Patient will be due to go for colonoscopy. Denies any melena, hematochezia, unintentional weight loss or ribbon like stools. Denies any issues with anesthesia, however patient is morbidly obese and might have issues with anesthesia. Patient reports that she was feeling dizzy when she was out and about last Tuesday and had syncopal episode, however patient reports that she was conscious the whole time. Patient felt dizzy and felt like her legs gave out from under her. Patient does have a history of allergies, currently taking Flonase twice a day. Not taking Zyrtec anymore. Patient does her pressure behind her eyes. No vision changes no spots. Patient will follow-up with her PCP. [facility] Medical History Allergic rhinitis Asthma Cough Morbid obesity Obesity (BMI 30-39.9) PCOS (polycystic ovarian syndrome) Sinusitis Snoring Somnolence, daytime Vitamin D deficiency Surgical History History of bladder surgery Hx of dilation and curettage Hx of section Hx laparoscopic cholecystectomy Hx of tooth extraction Hx of hysterectomy Family History Father Heart disease Mother Diabetes mellitus Raynaud disease Paternal Grandfather Diabetes mellitus Paternal Uncle Diabetes mellitus Social History Household Members: Children Housing: House Do you presently have visiting nurse or other home services: No (appointment for PROGRAM AIDE, in progress) Alcohol intake: current Alcohol intake frequency: holidays/special occasions only Alcohol type: wine Patient Tobacco Use Status: Current someday Tobacco user Tobacco use type: Cigarette Cigarettes Per Day: 4 Second Hand Smoke Exposure: No Substance Use Type: Marijuana Advance Directives Date on File: 01/12/22 service: No Current occupational status: unemployed Review of Systems Const Denies weight gain, Denies weight loss and Reports other (Episode of dizziness few days ago) ENT Reports no additional complaints, Denies dysphagia and Denies odynophagia Card Reports no additional complaints Resp Reports no additional complaints GI Denies abdominal pain, Denies belching, Denies melena, Denies bloating, Denies change in bowel habits, Denies dysphagia, Denies excessive flatus, Denies dyspepsia, Denies heartburn, Denies diarrhea, Reports loose stools, Denies nausea, Denies odynophagia and Denies vomiting Reports no additional complaints Musc Reports no additional complaints Neuro Reports no additional complaints Psych Reports no additional complaints Endo Reports no additional complaints Physical Exam Vital Signs: Last Vital Signs Pulse 93 05/25/23 15:33 BP 130/66 05/25/23 15:33 BMI result Body Mass Index 45.8 Const General: healthy appearing, no acute distress and well developed Nutritional Appearance: obese Orientation/consciousness: patient oriented x3 HEENT Head: Yes normal to inspection, Yes normocephalic and Yes atraumatic Face and sinus: Yes normal facial exam Mouth: Normal oral and palatal mucosa present Throat: Yes posterior oropharynx normal, Yes tonsils normal and Yes uvula midline Eyes General: appearance normal, both eyes and all related structures Neck Neck: Yes normal visual inspection, Yes full ROM and Yes trachea midline Thyroid: Thyroid normal Resp Effort & Inspection: normal respiratory effort, able to speak in complete sentences, no tracheal deviation and symmetric chest movement Auscultation: clear to auscultation bilaterally Cardio Rate: regular rate Heart sounds: S1 normal heart sound present and S2 normal heart sound present GI Inspection: Yes normal to inspection, No distended and Yes obesity Palpation (GI): Soft to palpation, not firm, nontender and No hepatosplenomegaly present Auscultation: normal bowel sounds General: Yes no CVA tenderness Back/Spine/Pelvis Back: no CVA tenderness Skin General skin exam: elasticity normal, turgor normal and dry skin Neuro General: patient oriented x3 Psych Appearance: grossly normal Mental Status: mental status grossly normal Results Reviewed Results Reviewed: ABDOMINAL CT SCAN 04/19/2023 FINDINGS: LOCALIZER IMAGES: Obese body habitus. Cholecystectomy clips are present in the right upper quadrant the abdomen. Normal bowel gas pattern. LUNG BASES: No pulmonary consolidation or pleural effusion. The heart size is normal. Mitral valve annular calcification is noted. LIVER: Mild hepatomegaly. No focal liver lesion. GALLBLADDER AND BILIARY TREE: Gallbladder is surgically absent. No dilated bile ducts. PANCREAS: Normal. No edema, pancreatic ductal dilatation or mass. SPLEEN: Normal. ADRENAL GLANDS: Normal. KIDNEYS AND URETERS: The kidneys have normal size and enhance symmetrically. No perinephric edema or mass. No urolithiasis or hydroureteronephrosis. BLADDER: Normal. No calculi or wall thickening. BOWEL AND PERITONEUM: Stomach is unremarkable. No dilated bile ducts. The appendix is normal. Submucosal fat attenuation within the wall of the ascending and transverse colon. This can represent normal variation, particularly in patient's with obesity, and does not necessarily imply sequela of old, inactive inflammatory bowel disease. No pericolonic fat stranding. No abdominal free fluid or pneumoperitoneum. ABDOMINAL WALL: Small fat-containing abdominal hernia is unchanged. VASCULATURE: Normal. LYMPH NODES: No pathologic sized lymph nodes in the abdomen or pelvis. No inguinal lymphadenopathy. PELVIC VISCERA: Status post hysterectomy. No adnexal mass or pelvic free fluid. MUSCULOSKELETAL: Unremarkable. CT/CT abdomen pelvis w IV con IMPRESSION: * No acute imaging abnormalities in the abdomen or pelvis compared to 02/04/2021. * Cholecystectomy. No dilated bile ducts. * Mild hepatomegaly is noted in this patient of large body habitus. * The finding of submucosal fat attenuation in the wall of the colon can represent normal variation, particularly in patient's of obese body habitus. There is no imaging evidence of an acute inflammatory or obstructive process along the gastrointestinal tract. The appendix is normal. Assessment & Plan Assessment & Plan (1) Abdominal pain: Code(s): R10.9 - Unspecified abdominal pain Qualifiers: Abdominal location: upper abdomen, unspecified Qualified Code(s): R10.10 - Upper abdominal pain, unspecified (2) GERD (gastroesophageal reflux disease): Code(s): K21.9 - Gastro-esophageal reflux disease without esophagitis Qualifiers: Esophagitis presence: esophagitis presence not specified Qualified Code(s): K21.9 - Gastro-esophageal reflux disease without esophagitis (3) Constipation: Code(s): K59.00 - Constipation, unspecified Qualifiers: Constipation type: slow transit constipation Qualified Code(s): K59.01 - Slow transit constipation Plan CT scan results discussed with patient. No acute abnormalities found. Patient states that she is feeling better after taking Nexium. Continue Nexium daily. Patient was also encouraged to avoid dietary triggers in late night snacking. Staying upright for minimum 3 hours after meals discussed with patient. Patient was encouraged to try to lose weight. Avoid food that is high in fat, greasy. Patient will try to get Citrucel [id number] or any other fiber that will help her bulk her stools. Patient can take Senokot on as needed basis in the evening if she feels constipated. Medications: New cetirizine (Zyrtec) 10 mg PO DAILY 30 tabs 0RF Refilled methylcellulose (laxative) (Citrucel) take it with full glass of water 500 mg PO DAILY 90 tabs 2RF K59.00 - Constipation, unspecified esomeprazole magnesium (Nexium) 40 mg PO DAILY 90 caps 5RF K21.9 - Gastro-esophageal reflux disease without esophagitis Coding Level of Care Code Est Pt Level 4 (63941) Diagnoses Pain of upper abdomen R10.10 Abdominal location: upper abdomen, unspecified Gastroesophageal reflux disease, unspecified whether esophagitis present K21.9 Esophagitis presence: esophagitis presence not specified Slow transit constipation K59.01 Constipation type: slow transit constipation Time Spent (min) 35 Comment 20 minutes spent with patient and additional 15 minutes spent reviewing her records.
[2023-05-25 15:33] VITALS: BP 130/66; PULSE 93; BMI 45.8
== END 2023-05-25 16:07 | disposition home or self-care (01) ==
PROVIDERS: PCP Internal Medicine; Visit Provider Nurse Practitioner Family
DX: R10.10 Upper abdominal pain, unspecified (principal); K21.9 Gastro-esophageal reflux disease without esophagitis; K59.01 Slow transit constipation
CPT/HCPCS: 99214

== ENCOUNTER → 2023-05-25 15:20 | Outpatient (BNVA) | payer MEDICAID, SELFPAY | PROVIDERS: PCP Internal Medicine; Visit Provider Nurse Practitioner Family | DX: K59.01 Slow transit constipation (principal); K21.9 Gastro-esophageal reflux disease without esophagitis; R10.10 Upper abdominal pain, unspecified | CPT/HCPCS: 99212 ==

== ENCOUNTER 2023-06-08 14:40 | Outpatient (AMB) | payer MEDICAID, SELFPAY ==
--- NOTE | 2023-06-08 14:59 | MHC.OFFVISWM ---
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 Required: No Allergies albuterol Allergy (Intermediate, Verified 06/08/23 15:08) swelling tramadol Allergy (Intermediate, Verified 06/08/23 15:08) swelling buspirone [From BuSpar] Allergy (Mild, Verified 06/08/23 15:08) rash lamotrigine [From Lamictal] Allergy (Mild, Verified 06/08/23 15:08) Unknown naproxen Allergy (Unknown, Verified 06/08/23 15:08) anaphylaxis NSAIDS (Non-Steroidal Anti-Inflamma [NSAIDS (NON-STEROIDAL ANTI-INFLAMMA] Allergy (Unknown, Verified 06/08/23 15:08) ANAPHYLAXIS Penicillins [PENICILLINS] Allergy (Unknown, Verified 06/08/23 15:08) ANAPHYLAXIS methotrexate Allergy (Verified 06/08/23 15:08) Rash Medication List - Last Reconciled 06/08/23 by ASTON Connelly acetaminophen 500 mg PO Q6H PRN baclofen 10 mg PO BID cetirizine (Zyrtec) 10 mg PO DAILY cholecalciferol (vitamin D3) 50 mcg PO DAILY 30 days esomeprazole magnesium (Nexium) 40 mg PO DAILY fluticasone propion-salmeterol 250-50 mcg/dose (Advair Diskus) 1 inh inhalation Q12H 30 days furosemide (Lasix) 40 mg PO DAILY gabapentin 100 mg PO DAILY hydroxyzine HCl 10 mg PO QID PRN ipratropium bromide 17 mcg/actuation (Atrovent HFA) 2 puffs PO TID loratadine 10 mg PO DAILY losartan 25 mg PO DAILY methylcellulose (laxative) (Citrucel) 500 mg PO DAILY montelukast 10 mg PO BEDTIME oxybutynin chloride ER 15 mg PO DAILY oxycodone 5 mg PO Q6H PRN paroxetine HCl 20 mg PO BEDTIME pregabalin mg PO sennosides (Natural Senna Laxative) 8.6 mg PO BEDTIME valacyclovir (Valtrex) 1,000 mg PO DAILY ziprasidone HCl (Geodon) 1 cap PO BEDTIME zolpidem ER 12.5 mg PO BEDTIME PRN HPI HPI Comments History of Present Illness Details 47-year-old female returns to the office today in follow-up. She was last seen several months ago although the visit had to be cut short emergently as she required emergency care for persistent nausea and vomiting. Since then she has stopped Chantix which she felt attributed to her nausea and vomiting. She has followed up with GI. She states that she continues to take Benadryl 3 times a day as needed for nausea as well as starting Lyrica. She reports that she would frequently not eat during the day at all, causing nausea, causing her to take the Benadryl. She states that she would not eat for a several days at a time. She states that her fiance and child would tell her that she needs to eat but she does not want to. She is currently undergoing mental health therapy and counseling, seeing her therapist once a week or once every other week. She states that she is going to discuss her food association and intermittent anorexia with her therapist. I discussed with her that I am very concerned about her eating behaviors and that she will need to address them with her mental health counselor prior to starting this program. It was explained to her that our program is very specific requiring adherence to a schedule of protein shakes, protein bars in food and if she is unable to even follow her own dietary schedule at home, she is not ready to start our program. She states that she will discuss with her mental health therapist her underlying associations with food and unknown reasons why she does not eat for days at a time. She was encouraged to call the office and follow up with us in the future when she is more prepared and able to initiate a bariatric weight loss program. She was in agreement with this plan and will call our office when she is ready. [facility] Medical History Allergic rhinitis Asthma Cough Morbid obesity Obesity (BMI 30-39.9) PCOS (polycystic ovarian syndrome) Sinusitis Snoring Somnolence, daytime Vitamin D deficiency Surgical History History of bladder surgery Hx of dilation and curettage Hx of section Hx laparoscopic cholecystectomy Hx of tooth extraction Hx of hysterectomy Family History Father Heart disease Mother Diabetes mellitus Raynaud disease Paternal Grandfather Diabetes mellitus Paternal Uncle Diabetes mellitus Social History (Updated 06/08/23 @ 15:13 by Susan Leone CMA) Household Members: Children Housing: House Do you presently have visiting nurse or other home services: No (appointment for RETAIL SPECIAL EVENT ASSOCIATE, in progress) Alcohol intake: current Alcohol intake frequency: a few times a month Alcohol type: wine Patient Tobacco Use Status: Current someday Tobacco user Tobacco use type: Cigarette Cigarettes Per Day: 3 Second Hand Smoke Exposure: No Substance Use Type: Marijuana Advance Directives Date on File: 01/12/22 service: No Current occupational status: unemployed Physical Exam Vital Signs: Last Vital Signs Temp 97.6 F 06/08/23 15:17 Pulse 75 06/08/23 15:17 BP 128/58 L 06/08/23 15:17 Pulse Ox 96 06/08/23 15:17 Oxygen Delivery Method Room Air 06/08/23 15:17 BMI result Body Mass Index 45.0 Assessment & Plan Assessment & Plan (1) Morbid obesity: Code(s): E66.01 - Morbid (severe) obesity due to excess calories Plan: The patient is going to dress her underlying association with food and intermittent anorexia causing her to not eat for days at a time with her mental health therapist. One she has a better understanding of this, she has been encouraged to call our office to follow-up and initiate our program. She is in agreement with this plan and will call our office in the future. Coding Level of Care Code Est Pt Level 2 (93701) Diagnoses Morbid obesity E66.01
[2023-06-08 15:17] VITALS: BP 128/58; PULSE 75; TEMP 36.4; O2SAT 96; BMI 45.0
== END 2023-06-08 15:35 | disposition home or self-care (01) ==
PROVIDERS: PCP Internal Medicine; Visit Provider Physician Assistant Surgical
DX: E66.01 Morbid (severe) obesity due to excess calories (principal)
CPT/HCPCS: 99212

== ENCOUNTER → 2023-06-08 14:40 | Outpatient (BNVA) | payer MEDICAID, SELFPAY | PROVIDERS: PCP Internal Medicine; Visit Provider Physician Assistant Surgical | DX: E66.01 Morbid (severe) obesity due to excess calories (principal); Z68.42 Body mass index [BMI] 45.0-49.9, adult | CPT/HCPCS: 99212 ==

== ENCOUNTER 2023-07-07 14:07 | Outpatient (AMB) | payer MEDICAID, SELFPAY ==
--- NOTE | 2023-07-07 14:12 | A.OFFVIS_ITS ---
Intake Vital Signs 07/07/23 14:13 Height 4 ft 11 in Weight 220 lb 7.396 oz BMI 44.5 BP 110/70 Blood Pressure Location Lt brachial Position Sitting Pulse 89 Pulse Source Pulse Oximeter Pulse Oximetry (%) 97 Oxygen Delivery Method Room Air Intake Visit Reasons: asthma Intake Note: pt is here for follow up and states she is having a hard time with the inhaler that she is using atrovent, but she tried ventolin and she feels this works better and would like this instead. Allergies tramadol Allergy (Intermediate, Verified 07/07/23 14:34) swelling buspirone [From BuSpar] Allergy (Mild, Verified 07/07/23 14:34) rash lamotrigine [From Lamictal] Allergy (Mild, Verified 07/07/23 14:34) Unknown naproxen Allergy (Unknown, Verified 07/07/23 14:34) anaphylaxis NSAIDS (Non-Steroidal Anti-Inflamma [NSAIDS (NON-STEROIDAL ANTI-INFLAMMA] Allergy (Unknown, Verified 07/07/23 14:34) ANAPHYLAXIS Penicillins [PENICILLINS] Allergy (Unknown, Verified 07/07/23 14:34) ANAPHYLAXIS methotrexate Allergy (Verified 07/07/23 14:34) Rash Medication List - Last Reconciled 07/07/23 by Kerry James MD acetaminophen 500 mg PO Q6H PRN baclofen 10 mg PO BID cetirizine (Zyrtec) 10 mg PO DAILY cholecalciferol (vitamin D3) 50 mcg PO DAILY 30 days diphenhydramine HCl (Laureen-Dryl) 25 mg PO TID PRN esomeprazole magnesium (Nexium) 40 mg PO DAILY fluticasone propion-salmeterol 250-50 mcg/dose (Advair Diskus) 1 inh inhalation Q12H 30 days furosemide (Lasix) 40 mg PO DAILY hydroxyzine HCl 10 mg PO QID PRN ipratropium bromide 17 mcg/actuation (Atrovent HFA) 2 puffs PO TID loratadine 10 mg PO DAILY losartan 25 mg PO DAILY mirabegron ER (Myrbetriq) 25 mg PO QAM montelukast 10 mg PO BEDTIME nicotine (polacrilex) 4 mg PO Q2H PRN oxycodone 5 mg PO Q6H PRN paroxetine HCl 20 mg PO BEDTIME pregabalin mg PO sennosides (Natural Senna Laxative) 8.6 mg PO BEDTIME valacyclovir (Valtrex) 1,000 mg PO DAILY varenicline 1 mg PO DAILY ziprasidone HCl (Geodon) 1 cap PO BEDTIME zolpidem ER 12.5 mg PO BEDTIME PRN Do you need a note to return to daycare/school/sports/work: No HPI asthma HPI Details This [age] years old female is coming after four months for her regular follow-up. Her bronchial asthma/COPD has been under good control. However every now and then she has increased cough with wheezing. She has been using Atrovent as a rescue inhaler. Now she thinks it is too strong. Makes her mouth dry, and would like to use Ventolin. Nasal congestion and postnasal drip is relatively under good control. She remains overweight, denies symptoms of sleep apnea. She did participate in weight management program, but she cannot undergo surgery. [facility] Medical History Sinusitis Somnolence, daytime Snoring Morbid obesity Cough Asthma Allergic rhinitis Obesity (BMI 30-39.9) PCOS (polycystic ovarian syndrome) Vitamin D deficiency Surgical History History of bladder surgery Hx of dilation and curettage Hx of section Hx laparoscopic cholecystectomy Hx of tooth extraction Hx of hysterectomy Family History Father Heart disease Mother Diabetes mellitus Raynaud disease Paternal Grandfather Diabetes mellitus Paternal Uncle Diabetes mellitus Social History Household Members: Children Housing: House Do you presently have visiting nurse or other home services: No (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, 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) Alcohol intake: current Alcohol intake frequency: a few times a month Alcohol type: wine Patient Tobacco Use Status: Current someday Tobacco user Tobacco use type: Cigarette Cigarettes Per Day: 3 Second Hand Smoke Exposure: No Substance Use Type: Marijuana Advance Directives Date on File: 01/12/22 service: No Current occupational status: unemployed Review of Systems Const All systems reviewed & are unremarkable except as noted in HPI and below Reports headache(s) (Off and on) Eyes Reports no additional complaints ENT Reports headache(s) (Off and on) and Reports nasal congestion (Mild in termittent) Card Denies chest pain, Denies irregular heart rhythm and Denies leg edema Resp Reports as per HPI GI Reports no additional complaints Reports urinary incontinence Musc Reports back pain and Reports myalgias Skin/Breast Reports system reviewed and no additional complaints, except as documented Neuro Reports headache(s) (Off and on) Psych Reports depression and Reports other (Insomnia) Endo Reports other (Being treated for type 2 diabetes mellitus) Physical Exam Vital Signs: Last Vital Signs Pulse 89 07/07/23 14:13 BP 110/70 07/07/23 14:13 Pulse Ox 97 07/07/23 14:13 Oxygen Delivery Method Room Air 07/07/23 14:13 BMI result Body Mass Index 44.5 Const Other: MORBIDLY OBESE, APPEARS VERY UNCOMFORTABLE, DUE TO PAIN IN THE BACK AND ALSO, POINTS TO BOTH MAXILLARY AREAS WHERE IT HURTS. General: no acute distress, alert and awake Orientation/consciousness: patient oriented x3 HEENT Head: Yes normal to inspection General nose exam: No nasal polyps present and No nasal discharge present Mouth: oropharynx normal Throat: Yes posterior oropharynx normal Eyes General: appearance normal, both eyes and all related structures Neck Neck: Yes normal visual inspection, Yes no lymphadenopathy, Yes trachea midline and Yes no JVD Thyroid: Thyroid normal Chest Chest palpation & inspection: normal inspection of the chest, normal palpation of entire chest wall and no tenderness Resp Other: PERCUSSION NOTE IS RESONANT. BREATH SOUNDS DIMINISHED OVER BOTH BASILAR AREAS. SHE DOES HAVE A FEW SCATTERED EXPIRATORY WHEEZES ON BOTH SIDES. Cardio Palpation: normal PMI Rate: regular rate Rhythm: regular rhythm Heart sounds: no gallops and no murmurs GI Palpation (GI): Soft to palpation, nontender, No hepatosplenomegaly present, no masses and Other GI palpation findings present (ABDOMEN IS MODERATELY OBESE AND PROTUBERANT) Auscultation: normal bowel sounds Back/Spine/Pelvis Thoracic/Lumbar Spine: thoracic and lumbar spine normal to inspection, thoraco- lumbar ROM limited and thoraco-lumbar spasm Skin General skin exam: no rashes or lesions noted Neuro General: patient oriented x3 and no focal motor deficits Cranial nerves: Yes CN's II-XII intact bilaterally Extrem General: Yes normal to inspection, Yes no clubbing, cyanosis or edema and Yes no calf tenderness Right upper extremity: no edema Psych Appearance: grossly normal and well kempt Speech and movement: Normal speech and movement present Assessment & Plan Assessment & Plan (1) Morbid obesity: Comment: BMI= 44.5 She is not able to lose weight. Has been in weight management program. But did not qualify for bariatric surgery. Code(s): E66.01 - Morbid (severe) obesity due to excess calories Plan: Advised to stay active with the weight management program and try to follow the instructions for diet and exercise. (2) Asthma: Comment: Chronic persistent bronchial asthma . At present seems to be fairly well controlled. [place]: ADVAIR 250-50 ONE INH BID ,script is sent to Pharmacy Montelukast 10 mg daily. May use Atrovent HFA 2 puffs Q 6 hours but only p.r.n.. EXPLAINED ABOUT HER LIST OF MEDs . Code(s): J45.909 - Unspecified asthma, uncomplicated Plan: [place] : ADVAIR 250-50 ONE INH BID ,script is sent to Pharmacy Montelukast 10 mg daily. Ventolin : 2 puffs q 4-6 Hrs PRN . May keep Atrovent HFA 2 puffs on hand to use once in a while . (3) Allergic rhinitis: Comment: Chronic persistent, problem, around the year, but seems to be controlled. [place]: Continue montelukast 10 mg daily. And Flonase 2 spray each nostril daily but only p.r.n. Code(s): J30.9 - Allergic rhinitis, unspecified Plan: as above Medications: New albuterol sulfate 90 mcg/actuation (Ventolin HFA) 2 puffs inhalation Q4-6H 30 days PRN 8.5 grams 3RF shortness of breath or wheezing Coding Level of Care Code Est Pt Level 3 (97944) Diagnoses Morbid obesity E66.01 Asthma J45.909 Allergic rhinitis J30.9
[2023-07-07 14:13] VITALS: BP 110/70; PULSE 89; O2SAT 97; BMI 44.5
== END 2023-07-07 14:37 | disposition home or self-care (01) ==
PROVIDERS: PCP Internal Medicine; Visit Provider Internal Medicine
DX: E66.01 Morbid (severe) obesity due to excess calories (principal); J45.909 Unspecified asthma, uncomplicated; J30.9 Allergic rhinitis, unspecified
CPT/HCPCS: 99213

== ENCOUNTER → 2023-07-07 14:07 | Outpatient (BNVA) | payer MEDICAID, SELFPAY | PROVIDERS: PCP Internal Medicine; Visit Provider Internal Medicine | DX: J45.909 Unspecified asthma, uncomplicated (principal); E66.01 Morbid (severe) obesity due to excess calories; F17.210 Nicotine dependence, cigarettes, uncomplicated; Z68.41 Body mass index [BMI] 40.0-44.9, adult | CPT/HCPCS: 99212 ==

== ENCOUNTER 2023-12-05 15:02 | Outpatient (AMB) | payer MEDICAID, SELFPAY ==
[2023-12-05 15:11] VITALS: BP 102/60; PULSE 95; O2SAT 96; BMI 44.3
--- NOTE | 2023-12-05 15:11 | A.OFFVIS_ITS ---
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: No Allergies tramadol Allergy (Intermediate, Verified 12/05/23 15:20) swelling buspirone [From BuSpar] Allergy (Mild, Verified 12/05/23 15:20) rash lamotrigine [From Lamictal] Allergy (Mild, Verified 12/05/23 15:20) Unknown naproxen Allergy (Unknown, Verified 12/05/23 15:20) anaphylaxis NSAIDS (Non-Steroidal Anti-Inflamma [NSAIDS (NON-STEROIDAL ANTI-INFLAMMA] Allergy (Unknown, Verified 12/05/23 15:20) ANAPHYLAXIS Penicillins [PENICILLINS] Allergy (Unknown, Verified 12/05/23 15:20) ANAPHYLAXIS methotrexate Allergy (Verified 12/05/23 15:20) Rash Medication List - Last Reconciled 12/05/23 by Kerry James MD acetaminophen 500 mg PO Q6H PRN albuterol sulfate 90 mcg/actuation (Ventolin HFA) 2 puffs PO Q4-6H PRN baclofen 10 mg PO BID cetirizine (Zyrtec) 10 mg PO DAILY cholecalciferol (vitamin D3) 50 mcg PO DAILY 30 days diphenhydramine HCl (Laureen-Dryl) 25 mg PO TID PRN esomeprazole magnesium (Nexium) 40 mg PO DAILY furosemide (Lasix) 40 mg PO DAILY hydroxyzine HCl 10 mg PO QID PRN loratadine 10 mg PO DAILY losartan 25 mg PO DAILY mirabegron ER (Myrbetriq) 25 mg PO QAM montelukast 10 mg PO BEDTIME nicotine (polacrilex) 4 mg PO Q2H PRN oxycodone 5 mg PO Q6H PRN valacyclovir (Valtrex) 1,000 mg PO DAILY varenicline 1 mg PO DAILY ziprasidone HCl (Geodon) 40 mg PO BEDTIME ziprasidone HCl 20 mg PO BEDTIME zolpidem ER 12.5 mg PO BEDTIME PRN Do you need a note to return to daycare/school/sports/work: No HPI HPI asthma: Details: TERRIE 48 YEARS OLD FEMALE, WITH HISTORY OF CHRONIC ALLERGIC RHINITIS AND BRONCHIAL ASTHMA, COMES FOR. FOLLOW-UP AFTER 4 MONTHS SHE DOES NOT GET ADVAIR ANYMORE, SO HAS BEEN USING ALBUTEROL HFA(VENTOLIN) NEEDED. SHE USES VENTOLIN ABOUT ONCE OR TWICE A WEEK. OVERALL HER ALLERGIC RHINITIS AND ASTHMA RELATIVELY CONTROLLED. SHE STILL USES SINGULAIR 10 MG DAILY . SHE HAS BEEN ABLE TO QUIT SMOKING WITH THE HELP OF CHANTIX AND NICOTINE LOZENGES, NOW USING ONLY NEEDED. [facility] Medical History Sinusitis Somnolence, daytime Snoring Morbid obesity Cough Asthma Allergic rhinitis Obesity (BMI 30-39.9) PCOS (polycystic ovarian syndrome) Vitamin D deficiency Surgical History History of bladder surgery Hx of dilation and curettage Hx of section Hx laparoscopic cholecystectomy Hx of tooth extraction Hx of hysterectomy Family History Father Heart disease Mother Diabetes mellitus Raynaud disease Paternal Grandfather Diabetes mellitus Paternal Uncle Diabetes mellitus Social History Household Members: Children Housing: House Do you presently have visiting nurse or other home services: No (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, 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) Alcohol intake: current Alcohol intake frequency: a few times a month Alcohol type: wine Patient Tobacco Use Status: Former Tobacco user Tobacco use type: Cigarette Cigarettes Per Day: 3 Second Hand Smoke Exposure: No Substance Use Type: Marijuana Advance Directives Date on File: 01/12/22 service: No Current occupational status: unemployed Review of Systems Const All systems reviewed & are unremarkable except as noted in HPI and below Reports headache(s) (Off and on) Eyes Reports no additional complaints ENT Reports headache(s) (Off and on) and Reports nasal congestion (Mild intermittent) Card Denies chest pain, Denies irregular heart rhythm and Denies leg edema Resp Reports as per HPI GI Reports no additional complaints Reports urinary incontinence Musc Reports back pain and Reports myalgias Skin/Breast Reports system reviewed and no additional complaints, except as documented Neuro Reports headache(s) (Off and on) Psych Reports depression and Reports other (Insomnia) Endo Reports other (Being treated for type 2 diabetes mellitus) Physical Exam Vital Signs: Last Vital Signs Pulse 95 12/05/23 15:11 BP 102/60 12/05/23 15:11 Pulse Ox 96 12/05/23 15:11 Oxygen Delivery Method Room Air 12/05/23 15:11 BMI result Body Mass Index 44.3 Const Other: MORBIDLY OBESE, APPEARS VERY UNCOMFORTABLE, DUE TO PAIN IN THE BACK AND ALSO, POINTS TO BOTH MAXILLARY AREAS WHERE IT HURTS. General: no acute distress, alert and awake Orientation/consciousness: patient oriented x3 HEENT Head: Yes normal to inspection General nose exam: No nasal polyps present and No nasal discharge present Mouth: oropharynx normal Throat: Yes posterior oropharynx normal Eyes General: appearance normal, both eyes and all related structures Neck Neck: Yes normal visual inspection, Yes no lymphadenopathy, Yes trachea midline and Yes no JVD Thyroid: Thyroid normal Chest Chest palpation & inspection: normal inspection of the chest, normal palpation of entire chest wall and no tenderness Resp Other: PERCUSSION NOTE IS RESONANT. BREATH SOUNDS DIMINISHED OVER BOTH BASILAR AREAS. LUNGS ARE CLEAR WITHOUT ANY WHEEZES OR RHONCHI. Cardio Palpation: normal PMI Rate: regular rate Rhythm: regular rhythm Heart sounds: no gallops and no murmurs GI Palpation (GI): Soft to palpation, nontender, No hepatosplenomegaly present, no masses and Other GI palpation findings present (ABDOMEN IS MODERATELY OBESE AND PROTUBERANT) Auscultation: normal bowel sounds Back/Spine/Pelvis Thoracic/Lumbar Spine: thoracic and lumbar spine normal to inspection, thoraco- lumbar ROM limited and thoraco-lumbar spasm Skin General skin exam: no rashes or lesions noted Neuro General: patient oriented x3 and no focal motor deficits Cranial nerves: Yes CN's II-XII intact bilaterally Extrem General: Yes normal to inspection, Yes no clubbing, cyanosis or edema and Yes no calf tenderness Right upper extremity: no edema Psych Appearance: grossly normal and well kempt Speech and movement: Normal speech and movement present Assessment & Plan Assessment & Plan (1) Morbid obesity: Comment: BMI= 44.3 She is not able to lose weight. Has been in weight management program. But did not qualify for bariatric surgery. Now she is trying to lose weight on her own. Code(s): E66.01 - Morbid (severe) obesity due to excess calories Category: Medical Plan: Talked about diet and also encouraged her to walk daily (2) Asthma: Comment: Chronic persistent bronchial asthma . At present seems to be fairly well controlled. Even after stopping to use Advair, . She is remaining stable Code(s): J45.909 - Unspecified asthma, uncomplicated Category: Medical Plan: TX: Montelukast 10 mg daily. Ventolin 2 puffs Q 4-6 hours only p.r.n. (3) Allergic rhinitis: Comment: Chronic persistent, problem, around the year, but seems to be controlled. Code(s): J30.9 - Allergic rhinitis, unspecified Category: Medical Plan: TX: Continue montelukast 10 mg daily. And Flonase 2 spray each nostril daily but only p.r.n. Cetirizine 10 mg once a day p.r.n. Coding Level of Care Code Est Pt Level 3 (50385) Diagnoses Morbid obesity E66.01 Asthma J45.909 Allergic rhinitis J30.9
== END 2023-12-05 15:36 | disposition home or self-care (01) ==
PROVIDERS: PCP Internal Medicine; Referring Provider Internal Medicine; Visit Provider Internal Medicine
DX: E66.01 Morbid (severe) obesity due to excess calories (principal); J45.909 Unspecified asthma, uncomplicated; J30.9 Allergic rhinitis, unspecified
CPT/HCPCS: 99213

== ENCOUNTER → 2023-12-05 15:02 | Outpatient (BNVA) | payer MEDICAID, SELFPAY | PROVIDERS: PCP Internal Medicine; Visit Provider Internal Medicine | DX: J45.909 Unspecified asthma, uncomplicated (principal); J30.9 Allergic rhinitis, unspecified; E66.01 Morbid (severe) obesity due to excess calories; Z87.891 Personal history of nicotine dependence | CPT/HCPCS: 99212 ==

== ENCOUNTER 2024-01-05 11:32 | Outpatient (REF) | payer MEDICAID, SELFPAY | END 2024-01-05 11:33 | disposition home or self-care (01) | LOC: HO.HHCL 11:32 | PROVIDERS: Visit Provider Internal Medicine | DX: Z13.89 Encounter for screening for other disorder (principal) | CPT/HCPCS: 36415; 80053; 80061; 84443 ==

== ENCOUNTER 2024-01-26 13:23 | Outpatient (REF) | payer MEDICAID, SELFPAY ==
--- NOTE | ~2024-01-26 | MM_ITS ---
EXAMINATION: MM SCREENING DIGITAL BREAST TOMOSYNTHESIS, BILATERAL CLINICAL INFORMATION: Screening. Asymptomatic. COMPARISON: Mammography: This study is compared with prior exams dating back to 2019. . TECHNIQUE: Digital breast tomosynthesis is performed in both the craniocaudal and mediolateral oblique views along with computer-aided detection (CAD). Synthesized 2D images are generated from the tomosynthesis. FINDINGS: There are scattered areas of fibroglandular density (ACR BI-RADS breast composition Category b). There are no significant masses, abnormal calcifications, or other abnormalities. MM/MM tomosynthesis screening BI IMPRESSION: No mammographic evidence of malignancy. ASSESSMENT: BI-RADS BI-RADS 1 - Negative RECOMMENDATION: Routine annual mammography screening. 1 year F/U This examination should not preclude the clinical evaluation of a suspicious palpable abnormality. This patient's information was entered into a reminder system with a target due date for their next mammogram.
== END 2024-01-26 13:24 | disposition home or self-care (01) ==
LOC: HO.MAMMO 13:23
PROVIDERS: PCP Internal Medicine; Visit Provider Internal Medicine
DX: Z12.31 Encounter for screening mammogram for malignant neoplasm of breast (principal)
CPT/HCPCS: 77063; 77067

== ENCOUNTER → 2024-01-26 13:45 | Outpatient (BNV) | payer MEDICAID, SELFPAY | PROVIDERS: PCP Internal Medicine; Visit Provider Radiology Diagnostic Radiology | DX: Z12.31 Encounter for screening mammogram for malignant neoplasm of breast (principal) | CPT/HCPCS: 77063; 77067 ==

== ENCOUNTER 2024-04-05 14:47 | Outpatient (AMB) | payer MEDICAID, SELFPAY ==
[2024-04-05 14:55] VITALS: BP 130/82; PULSE 84; O2SAT 97; BMI 41.6
--- NOTE | 2024-04-05 14:55 | A.OFFVIS_ITS ---
Vital Signs 04/05/24 14:55 Height 4 ft 11 in Weight 206 lb 2.115 oz BMI 41.6 BP 130/82 Blood Pressure Location Lt brachial Position Sitting Pulse 84 Pulse Source Pulse Oximeter Pulse Oximetry (%) 97 Oxygen Delivery Method Room Air Intake Visit Reasons: Asthma Intake Note: pt is here for follow up and has been not feeling well for about 3 weeks, needing to use a nebulizer (which did help a lot) coughing all night, tight in chest, which is causing her to vomit due to inability to breath, inhalers not helping much. Sprinkler Driver Required: No Allergies tramadol Allergy (Intermediate, Verified 04/05/24 15:21) swelling buspirone [From BuSpar] Allergy (Mild, Verified 04/05/24 15:21) rash lamotrigine [From Lamictal] Allergy (Mild, Verified 04/05/24 15:21) Unknown naproxen Allergy (Unknown, Verified 04/05/24 15:21) anaphylaxis NSAIDS (Non-Steroidal Anti-Inflamma [NSAIDS (NON-STEROIDAL ANTI-INFLAMMA] Allergy (Unknown, Verified 04/05/24 15:21) ANAPHYLAXIS Penicillins [PENICILLINS] Allergy (Unknown, Verified 04/05/24 15:21) ANAPHYLAXIS methotrexate Allergy (Verified 04/05/24 15:21) Rash Medication List - Last Reconciled 04/05/24 by Kerry James MD acetaminophen 500 mg PO Q6H PRN albuterol sulfate 90 mcg/actuation (Ventolin HFA) 2 puffs PO Q4-6H PRN baclofen 10 mg PO BID cetirizine (Zyrtec) 10 mg PO DAILY cholecalciferol (vitamin D3) 50 mcg PO DAILY 30 days diphenhydramine HCl (Laureen-Dryl) 25 mg PO TID PRN esomeprazole magnesium (Nexium) 40 mg PO DAILY fluticasone propion-salmeterol 250-50 mcg/dose (Advair Diskus) 1 inh inhalation BID 30 days furosemide (Lasix) 40 mg PO DAILY hydroxyzine HCl 10 mg PO QID PRN loratadine 10 mg PO DAILY losartan 25 mg PO DAILY mirabegron ER (Myrbetriq) 25 mg PO QAM montelukast 10 mg PO BEDTIME nicotine (polacrilex) 4 mg PO Q2H PRN oxycodone 5 mg PO Q6H PRN valacyclovir (Valtrex) 1,000 mg PO DAILY varenicline 1 mg PO DAILY ziprasidone HCl (Geodon) 40 mg PO BEDTIME ziprasidone HCl 20 mg PO BEDTIME zolpidem ER 12.5 mg PO BEDTIME PRN Do you need a note to return to daycare/school/sports/work: No HPI HPI Asthma: Details: THIS 48 YEARS OLD FEMALE WITH LONGSTANDING HISTORY OF BRONCHIAL ASTHMA AND ALLERGIC RHINITIS, COMES AFTER 4 MONTHS FOR HER REGULAR FOLLOW-UP. HOWEVER FOR THE LAST 3 WEEKS SHE IS HAVING INCREASED AMOUNT OF COUGH WITH SOME WHEEZING AND SHORTNESS OF BREATH. SHE DENIES ANY FEVER OR CHILLS., SHE THINKS IT IS JUST THE SEASON AND HER ASTHMA IS ACTING UP. SHE IS USING ADVAIR TWICE A DAY REGULARLY AND ALSO HAS BEEN USING VENTOLIN QUITE FREQUENTLY WHICH DID NOT HELP. SHE USED THE ALBUTEROL SOLUTION IN THE NEBULIZER ( WHICH HER SON HAS AT HOME) AND THAT HELPED HER A LOT. NASAL CONGESTION IS SAME USUAL WITHOUT ANY ACUTE EXACERBATION. SHE IS SMOKING ABOUT 3 CIGARETTES A DAY, AND ALSO SMOKES MARIJUANA A FEW TIMES DAILY. [facility] Medical History (Updated 04/05/24 @ 15:30 by Kerry James MD) Asthma exacerbation Sinusitis Somnolence, daytime Snoring Morbid obesity Cough Asthma Allergic rhinitis Obesity (BMI 30-39.9) PCOS (polycystic ovarian syndrome) Vitamin D deficiency Surgical History History of bladder surgery Hx of dilation and curettage Hx of section Hx laparoscopic cholecystectomy Hx of tooth extraction Hx of hysterectomy Family History Father Heart disease Mother Diabetes mellitus Raynaud disease Paternal Grandfather Diabetes mellitus Paternal Uncle Diabetes mellitus Social History Household Members: Children Housing: House Do you presently have visiting nurse or other home services: No (appointment for MATERIAL CLERK, in progress) Alcohol intake: current Alcohol intake frequency: a few times a month Alcohol type: wine Patient Tobacco Use Status: Former Tobacco user Tobacco use type: Cigarette Cigarettes Per Day: 3 Second Hand Smoke Exposure: No Substance Use Type: Marijuana Advance Directives Date on File: 01/12/22 service: No Current occupational status: unemployed Review of Systems Const All systems reviewed & are unremarkable except as noted in HPI and below Reports headache(s) (Off and on) Eyes Reports no additional complaints ENT Reports headache(s) (Off and on) and Reports nasal congestion (Mild intermittent) Card Denies chest pain, Denies irregular heart rhythm and Denies leg edema Resp Reports as per HPI GI Reports no additional complaints Reports urinary incontinence Musc Reports back pain and Reports myalgias Skin/Breast Reports system reviewed and no additional complaints, except as documented Neuro Reports headache(s) (Off and on) Psych Reports depression and Reports other (Insomnia) Endo Reports other (Being treated for type 2 diabetes mellitus) Physical Exam Vital Signs: Last Vital Signs Pulse 84 04/05/24 14:55 BP 130/82 04/05/24 14:55 Pulse Ox 97 04/05/24 14:55 Oxygen Delivery Method Room Air 04/05/24 14:55 BMI result Body Mass Index 41.6 Const Other: MORBIDLY OBESE, APPEARS VERY UNCOMFORTABLE, DUE TO PAIN IN THE BACK AND ALSO, POINTS TO BOTH MAXILLARY AREAS WHERE IT HURTS. General: no acute distress, alert and awake Orientation/consciousness: patient oriented x3 HEENT Head: Yes normal to inspection General nose exam: No nasal polyps present and No nasal discharge present Mouth: oropharynx normal Throat: Yes posterior oropharynx normal Eyes General: appearance normal, both eyes and all related structures Neck Neck: Yes normal visual inspection, Yes no lymphadenopathy, Yes trachea midline and Yes no JVD Thyroid: Thyroid normal Chest Chest palpation & inspection: normal inspection of the chest, normal palpation of entire chest wall and no tenderness Resp Other: PERCUSSION NOTE IS RESONANT. BREATH SOUNDS DIMINISHED OVER BOTH BASILAR AREAS. ON AUSCULTATION SHE HAS SCATTERED EXPIRATORY WHEEZES ON BOTH SIDES. Cardio Palpation: normal PMI Rate: regular rate Rhythm: regular rhythm Heart sounds: no gallops and no murmurs GI Palpation (GI): Soft to palpation, nontender, No hepatosplenomegaly present, no masses and Other GI palpation findings present (ABDOMEN IS MODERATELY OBESE AND PROTUBERANT) Auscultation: normal bowel sounds Back/Spine/Pelvis Thoracic/Lumbar Spine: thoracic and lumbar spine normal to inspection, thoraco- lumbar ROM limited and thoraco-lumbar spasm Skin General skin exam: no rashes or lesions noted Neuro General: patient oriented x3 and no focal motor deficits Cranial nerves: Yes CN's II-XII intact bilaterally Extrem General: Yes normal to inspection, Yes no clubbing, cyanosis or edema and Yes no calf tenderness Right upper extremity: no edema Psych Appearance: grossly normal and well kempt Speech and movement: Normal speech and movement present Assessment & Plan Assessment & Plan (1) Asthma exacerbation: Comment: AT PRESENT SHE IS HAVING SUBACUTE TYPE OF EXACERBATION OF HER BRONCHIAL ASTHMA. IT MAY BE DUE TO INCREASED ENVIRONMENTAL TRIGGERS. THERE DOES NOT SEEM TO BE AN ACUTE INFECTION. Code(s): J45.901 - Unspecified asthma with (acute) exacerbation Category: Medical Plan: PREDNISONE 10 MG B.I.D. FOR 1 WEEK IS PRESCRIBED CONTINUE ADVAIR 250-51 INHALATION B.I.D.. USE VENTOLIN 2 PUFFS Q 4-6 HOURS P.R.N./ AND ALTERNATIVELY USE ALBUTEROL SOLUTION IN THE NEBULIZER Q 4-6 HOURS P.R.N., NEBULIZER BEING PRESCRIBED. (2) Allergic rhinitis: Comment: Chronic persistent, problem, around the year, but seems to be controlled. Code(s): J30.9 - Allergic rhinitis, unspecified Category: Medical Plan: MONTELUKAST 10 MG DAILY LORATADINE 10 MG ONCE A DAY P.R.N. (3) Morbid obesity: Comment: BMI= 44.3 She is not able to lose weight. Has been in weight management program. But did not qualify for bariatric surgery. Now she is trying to lose weight on her own. Denies symptoms of obstructive sleep apnea Code(s): E66.01 - Morbid (severe) obesity due to excess calories Category: Medical Plan: Again stressed that she needs to lose weight . Medications: New prednisone 10 mg PO BID 7 days 14 tabs 0RF ASTHMA EXCERBATION albuterol sulfate 2.5 mg (3 mL) inhalation Q6-8H 30 days 180 mL 2RF Asthma Excerbation Coding Level of Care Code Est Pt Level 3 (51105) Diagnoses Asthma exacerbation J45.901 Allergic rhinitis J30.9 Morbid obesity E66.01
== END 2024-04-05 15:21 | disposition home or self-care (01) ==
PROVIDERS: PCP Internal Medicine; Referring Provider Internal Medicine; Visit Provider Internal Medicine
DX: J45.901 Unspecified asthma with (acute) exacerbation (principal); J30.9 Allergic rhinitis, unspecified; E66.01 Morbid (severe) obesity due to excess calories
CPT/HCPCS: 99213

== ENCOUNTER → 2024-04-05 14:47 | Outpatient (BNVA) | payer MEDICAID, SELFPAY | PROVIDERS: PCP Internal Medicine; Visit Provider Internal Medicine | DX: J45.901 Unspecified asthma with (acute) exacerbation (principal); J30.9 Allergic rhinitis, unspecified; E66.01 Morbid (severe) obesity due to excess calories; Z68.41 Body mass index [BMI] 40.0-44.9, adult | CPT/HCPCS: 99212 ==

== ENCOUNTER 2024-04-13 13:54 | Outpatient (REF) | payer MEDICAID, SELFPAY ==
[2024-04-16 14:58] LABS: TS Negative Control Passed; TS Panel A 0; TS Panel B 0; TS Positive Control Passed; TSpotTB Negative (Negative)
== END 2024-04-13 13:55 | disposition home or self-care (01) ==
LOC: HO.HHCL 13:54
PROVIDERS: Visit Provider Internal Medicine
DX: Z02.89 Encounter for other administrative examinations (principal)
CPT/HCPCS: 36415; 86481

== ENCOUNTER 2024-04-23 15:55 | Outpatient (REF) | payer MEDICAID, SELFPAY ==
--- NOTE | ~2024-04-23 | XR_ITS ---
EXAMINATION: XR CHEST 2 VIEWS CLINICAL INFORMATION: Cough of 3 weeks' duration. COMPARISON: Chest radiographs dated 11/06/2021. TECHNIQUE: Frontal and lateral views of the chest were obtained. FINDINGS: The heart, great vessels, pulmonary vasculature and mediastinum are normal. The lungs show no focal infiltrate, effusion or pneumothorax. There is no acute osseous abnormality. XR/XR chest 2V IMPRESSION: No active cardiopulmonary disease. Electronically signed by: Clifton Batista MD 04/23/2024 08:15 PM EDT
== END 2024-04-23 15:56 | disposition home or self-care (01) ==
LOC: HO.HHCX 15:55
PROVIDERS: Visit Provider Nurse Practitioner
DX: R05.9 Cough, unspecified (principal)
CPT/HCPCS: 71046

== ENCOUNTER 2024-04-30 14:12 | Outpatient (REF) | payer MEDICAID, SELFPAY ==
[2024-04-30 17:15] LABS: Estimated Average Glucose 91 mg/dL; Hemoglobin A1C 100.4917 umol/L; Hemoglobin A1c % 4.8 % (<6.0)
[2024-04-30 17:25] LABS: C Reactive Protein 2.35 mg/dL (< or = 0.50)
[2024-04-30 17:29] LABS: B Type Natriuretic Peptide 11 pg/mL (<100)
[2024-04-30 17:43] LABS: Vitamin B12 508 pg/mL (200-900)
[2024-04-30 18:24] LABS: Erythrocyte Sedimentation Rate 43 MM/HR (0-20)
[2024-04-30 20:42] LABS: Alanine Aminotransferase 15 U/L (0-31); Albumin Level 4.4 g/dL (3.5-5.0); Alkaline Phosphatase 104 U/L (39-117); Anion Gap 18 (12-20); Aspartate Amino Transferase 15 U/L (5-31); Bilirubin Total 0.6 mg/dL (0.0-1.0); Blood Urea Nitrogen 13 mg/dL (9-16); Calcium 9.8 mg/dL (8.4-10.2); Carbon Dioxide 25 mmol/L (22-29); Chloride 102 mmol/L (96-108); Cholesterol 213 mg/dL (<200); Estimated Glomerular Filt Rate 52; Glucose Random 83 mg/dL (60-115); HDL Cholesterol 45 mg/dL (>40); LDL Cholesterol Calculated 134 mg/dL (<100); Sodium 142 mmol/L (135-145); Total Protein 8.2 g/dL (6.5-8.0); Triglycerides 173 mg/dL (<150)
[2024-04-30 20:55] LABS: TSH reflex Free T4 1.41 uIU/mL (0.32-4.0)
== END 2024-04-30 14:13 | disposition home or self-care (01) ==
LOC: HO.HHCL 14:12
PROVIDERS: Referring Provider Internal Medicine; Visit Provider Nurse Practitioner Primary Care
DX: R05.8 Other specified cough (principal); I77.6 Arteritis, unspecified; Z13.1 Encounter for screening for diabetes mellitus; R20.0 Anesthesia of skin; R20.2 Paresthesia of skin
CPT/HCPCS: 36415; 80053; 80061; 82607; 83036; 83880; 84443; 85652; 86140

== ENCOUNTER 2024-05-04 14:26 | Outpatient (REF) | payer MEDICAID, SELFPAY ==
[2024-05-04 16:51] LABS: Alanine Aminotransferase 13 U/L (0-31); Albumin Level 4.4 g/dL (3.5-5.0); Alkaline Phosphatase 96 U/L (39-117); Anion Gap 15 (12-20); Aspartate Amino Transferase 13 U/L (5-31); Bilirubin Total 0.5 mg/dL (0.0-1.0); Blood Urea Nitrogen 18 mg/dL (9-16); Calcium 9.9 mg/dL (8.4-10.2); Carbon Dioxide 22 mmol/L (22-29); Chloride 106 mmol/L (96-108); Estimated Glomerular Filt Rate 52; Glucose Random 95 mg/dL (60-115); Potassium 3.3 mmol/L (3.3-5.1); Sodium 140 mmol/L (135-145); Total Protein 8.1 g/dL (6.5-8.0)
== END 2024-05-04 14:27 | disposition home or self-care (01) ==
LOC: HO.HHCL 14:26
PROVIDERS: Visit Provider Internal Medicine
DX: E87.6 Hypokalemia (principal)
CPT/HCPCS: 36415; 80053

== ENCOUNTER 2024-06-06 13:40 | Outpatient (AMB) | payer MEDICAID, SELFPAY ==
[2024-06-06 14:41] VITALS: BP 110/68; PULSE 88; O2SAT 98; BMI 40.5
--- NOTE | 2024-06-06 14:41 | MHC.OFFVIS ---
Vital Signs 06/06/24 14:41 Height 4 ft 11 in Weight 200 lb 9.93 oz BMI 40.5 BP 110/68 Blood Pressure Location Lt brachial Position Sitting Pulse 88 Pulse Source Pulse Oximeter Pulse Oximetry (%) 98 Oxygen Delivery Method Room Air Intake Visit Reasons: Asthma Intake Note: pt is here for follow up and states she still has a hard cough worst at night, using mucinex bid daytime and night time version, using nebulizer to help move the mucous, but cough still there and bothersome Bench Inspector Required: No Allergies tramadol Allergy (Intermediate, Verified 06/06/24 14:58) swelling buspirone [From BuSpar] Allergy (Mild, Verified 06/06/24 14:58) rash lamotrigine [From Lamictal] Allergy (Mild, Verified 06/06/24 14:58) Unknown naproxen Allergy (Unknown, Verified 06/06/24 14:58) anaphylaxis NSAIDS (Non-Steroidal Anti-Inflamma [NSAIDS (NON-STEROIDAL ANTI-INFLAMMA] Allergy (Unknown, Verified 06/06/24 14:58) ANAPHYLAXIS Penicillins [PENICILLINS] Allergy (Unknown, Verified 06/06/24 14:58) ANAPHYLAXIS methotrexate Allergy (Verified 06/06/24 14:58) Rash Medication List - Last Reconciled 06/06/24 by Kerry James MD acetaminophen 500 mg PO Q6H PRN albuterol sulfate 90 mcg/actuation (Ventolin HFA) 2 puffs PO Q4-6H PRN albuterol sulfate 2.5 mg (3 mL) inhalation Q6-8H 30 days baclofen 10 mg PO BID cetirizine (Zyrtec) 10 mg PO DAILY cholecalciferol (vitamin D3) 50 mcg PO DAILY 30 days diphenhydramine HCl (Laureen-Dryl) 25 mg PO TID PRN esomeprazole magnesium (Nexium) 40 mg PO DAILY fluticasone propion-salmeterol 250-50 mcg/dose (Advair Diskus) 1 inh inhalation BID 30 days furosemide (Lasix) 40 mg PO DAILY hydroxyzine HCl 10 mg PO QID PRN loratadine 10 mg PO DAILY losartan 25 mg PO DAILY mirabegron ER (Myrbetriq) 25 mg PO QAM montelukast 10 mg PO BEDTIME nicotine (polacrilex) 4 mg PO Q2H PRN oxycodone 5 mg PO Q6H PRN valacyclovir (Valtrex) 1,000 mg PO DAILY varenicline 1 mg PO DAILY ziprasidone HCl (Geodon) 40 mg PO BEDTIME ziprasidone HCl 20 mg PO BEDTIME zolpidem ER 12.5 mg PO BEDTIME PRN HPI HPI Asthma: Details: This 48 years old female is here for follow-up for pulmonary issues. She is smoking about 3 cigarettes a day has try to cut it down as much as possible. Nasal allergies are under good control and she is using loratadine 10 mg once a day but only p.r.n.. Also using Flonase 2 spray in each nostril daily. Breathing is now better than before and she does not wake up at night with cough or wheezing. However in the evenings and early part of sleep she has some cough relieved by taking Mucinex. She does use Advair 250-51 inhalation b.i.d.. She also uses albuterol inhaler or nebulized solution about twice a day. [facility] Medical History Asthma exacerbation Sinusitis Somnolence, daytime Snoring Morbid obesity Cough Asthma Allergic rhinitis Obesity (BMI 30-39.9) PCOS (polycystic ovarian syndrome) Vitamin D deficiency Surgical History History of bladder surgery Hx of dilation and curettage Hx of section Hx laparoscopic cholecystectomy Hx of tooth extraction Hx of hysterectomy Family History Father Heart disease Mother Diabetes mellitus Raynaud disease Paternal Grandfather Diabetes mellitus Paternal Uncle Diabetes mellitus Social History Household Members: Children Housing: House Do you presently have visiting nurse or other home services: No (appointment for TAKE AWAY ATTENDANT, in progress) Alcohol intake: current Alcohol intake frequency: a few times a month Alcohol type: wine Patient Tobacco Use Status: Former Tobacco user Tobacco use type: Cigarette Cigarettes Per Day: 3 Second Hand Smoke Exposure: No Substance Use Type: Marijuana Advance Directives Date on File: 01/12/22 service: No Current occupational status: unemployed Review of Systems Const All systems reviewed & are unremarkable except as noted in HPI and below Reports headache(s) (Off and on) Eyes Reports no additional complaints ENT Reports headache(s) (Off and on) and Reports nasal congestion (Mild intermittent) Card Denies chest pain, Denies irregular heart rhythm and Denies leg edema Resp Reports as per HPI GI Reports no additional complaints Reports urinary incontinence Musc Reports back pain and Reports myalgias Skin/Breast Reports system reviewed and no additional complaints, except as documented Neuro Reports headache(s) (Off and on) Psych Reports depression and Reports other (Insomnia) Endo Reports other (Being treated for type 2 diabetes mellitus) Physical Exam Vital Signs: Last Vital Signs Pulse 88 06/06/24 14:41 BP 110/68 06/06/24 14:41 Pulse Ox 98 06/06/24 14:41 Oxygen Delivery Method Room Air 06/06/24 14:41 BMI result Body Mass Index 40.5 Const Other: MORBIDLY OBESE, APPEARS VERY UNCOMFORTABLE, DUE TO PAIN IN THE BACK AND ALSO, POINTS TO BOTH MAXILLARY AREAS WHERE IT HURTS. General: no acute distress, alert and awake Orientation/consciousness: patient oriented x3 HEENT Head: Yes normal to inspection General nose exam: No nasal polyps present and No nasal discharge present Mouth: oropharynx normal Throat: Yes posterior oropharynx normal Eyes General: appearance normal, both eyes and all related structures Neck Neck: Yes normal visual inspection, Yes no lymphadenopathy, Yes trachea midline and Yes no JVD Thyroid: Thyroid normal Chest Chest palpation & inspection: normal inspection of the chest, normal palpation of entire chest wall and no tenderness Resp Other: PERCUSSION NOTE IS RESONANT. BREATH SOUNDS DIMINISHED OVER BOTH BASILAR AREAS. ON AUSCULTATION NO WHEEZES OR RHONCHI ARE HEARD TODAY. Cardio Palpation: normal PMI Rate: regular rate Rhythm: regular rhythm Heart sounds: no gallops and no murmurs GI Palpation (GI): Soft to palpation, nontender, No hepatosplenomegaly present, no masses and Other GI palpation findings present (ABDOMEN IS MODERATELY OBESE AND PROTUBERANT) Auscultation: normal bowel sounds Back/Spine/Pelvis Thoracic/Lumbar Spine: thoracic and lumbar spine normal to inspection, thoraco-lumbar ROM limited and thoraco-lumbar spasm Skin General skin exam: no rashes or lesions noted Neuro General: patient oriented x3 and no focal motor deficits Cranial nerves: Yes CN's II-XII intact bilaterally Extrem General: Yes normal to inspection, Yes no clubbing, cyanosis or edema and Yes no calf tenderness Right upper extremity: no edema Psych Appearance: grossly normal and well kempt Speech and movement: Normal speech and movement present Assessment & Plan Assessment & Plan (1) Morbid obesity: Comment: BMI= 40.5 Patient remains obese, has lost a few lb of weight since last visit. Has been in weight management program. But did not qualify for bariatric surgery. Now she is trying to lose weight on her own. Denies symptoms of obstructive sleep apnea Code(s): E66.01 - Morbid (severe) obesity due to excess calories Category: Medical Plan: Encouraged to keep on losing weight even by a few lb every month (2) Asthma: Comment: Chronic persistent bronchial asthma . At present seems to be fairly well controlled with continued use of Advair. No significant wheezes are heard on the chest. Code(s): J45.909 - Unspecified asthma, uncomplicated Category: Medical Plan: Continue Advair 250-51 inhalation b.i.d. Ventolin HFA 2 puffs q.4-6 hours p.r.n. Or alternatively may use albuterol solution in the nebulizer q.6 hours p.r.n. (3) Cough: Comment: Cough is nonspecific, intermittent, contributed by allergic rhinitis as well as bronchial asthma. Code(s): R05 - Cough Category: Medical Plan: OK to use Mucinex 1 tablet b.i.d. (4) Allergic rhinitis: Comment: Chronic persistent, problem, around the year, but seems to be controlled. Code(s): J30.9 - Allergic rhinitis, unspecified Category: Medical Plan: Montelukast 10 mg daily. Flonase 2 spray in each nostril daily Loratadine 10 mg once a day p.r.n. Coding Level of Care Code Est Pt Level 3 (84116) Diagnoses Morbid obesity E66.01 Asthma J45.909 Cough R05 Allergic rhinitis J30.9
== END 2024-06-06 14:57 | disposition home or self-care (01) ==
LOC: HO.HPS 13:41
PROVIDERS: PCP Internal Medicine; Visit Provider Internal Medicine
DX: E66.01 Morbid (severe) obesity due to excess calories (principal); J45.909 Unspecified asthma, uncomplicated; R05.9 Cough, unspecified; J30.9 Allergic rhinitis, unspecified
CPT/HCPCS: 99213

== ENCOUNTER → 2024-06-06 13:40 | Outpatient (BNVA) | payer MEDICAID, SELFPAY | PROVIDERS: PCP Internal Medicine; Visit Provider Internal Medicine | DX: J45.909 Unspecified asthma, uncomplicated (principal); R05.9 Cough, unspecified; E66.01 Morbid (severe) obesity due to excess calories; Z68.41 Body mass index [BMI] 40.0-44.9, adult | CPT/HCPCS: 99212 ==

== ENCOUNTER 2024-06-15 07:16 | Outpatient (AMB) | payer MEDICAID, SELFPAY ==
--- NOTE | 2024-06-15 07:30 | A.OFFVIS_ITS ---
Vital Signs 3 06/15/24 07:46 Height 4 ft 11 in Weight 200 lb 2.876 oz BMI 40.4 BP 112/78 Blood Pressure Location Rt brachial Position Sitting Pulse 77 Pulse Source Pulse Oximeter Pulse Oximetry (%) 98 Oxygen Delivery Method Room Air Intake Visit Reasons: Elev CRP/ Vasculitis/CM Intake Note: Patient presents for Elevated CRP/Vasculitis. Allergies tramadol Allergy (Intermediate, Verified 06/15/24 07:36) swelling buspirone [From BuSpar] Allergy (Mild, Verified 06/15/24 07:36) rash lamotrigine [From Lamictal] Allergy (Mild, Verified 06/15/24 07:36) Unknown naproxen Allergy (Unknown, Verified 06/15/24 07:36) anaphylaxis NSAIDS (Non-Steroidal Anti-Inflamma [NSAIDS (NON-STEROIDAL ANTI-INFLAMMA] Allergy (Unknown, Verified 06/15/24 07:36) ANAPHYLAXIS Penicillins [PENICILLINS] Allergy (Unknown, Verified 06/15/24 07:36) ANAPHYLAXIS methotrexate Allergy (Verified 06/15/24 07:36) Rash Medication List - Last Reconciled 06/15/24 by Eris Rodas MD acetaminophen 500 mg PO Q6H PRN acetaminophen ER (Tylenol Arthritis Pain) 650 mg PO Q8H PRN albuterol sulfate 90 mcg/actuation (Ventolin HFA) 2 puffs PO Q4-6H PRN albuterol sulfate 2.5 mg (3 mL) inhalation Q6-8H 30 days baclofen 10 mg PO BID cetirizine (Zyrtec) 10 mg PO DAILY cholecalciferol (vitamin D3) 50 mcg PO DAILY 30 days diphenhydramine HCl (Laureen-Dryl) 25 mg PO TID PRN esomeprazole magnesium (Nexium) 40 mg PO DAILY fluticasone propion-salmeterol 250-50 mcg/dose (Advair Diskus) 1 inh inhalation BID 30 days furosemide (Lasix) 40 mg PO DAILY hydroxyzine HCl 10 mg PO QID PRN loperamide (Anti-Diarrheal (loperamide)) mg PO loratadine 10 mg PO DAILY losartan 25 mg PO DAILY mirabegron ER (Myrbetriq) 25 mg PO QAM montelukast 10 mg PO BEDTIME oxycodone 5 mg PO Q6H PRN topiramate 100 mg PO BEDTIME valacyclovir (Valtrex) 1,000 mg PO DAILY varenicline 1 mg PO DAILY zolpidem ER 12.5 mg PO BEDTIME PRN HPI Comments Details: 48-year-old female with history of leukocytoclastic vasculitis presents for follow-up. She was last seen by Dr. Smith more than 3 years ago. In 2019 patient had leukocytoclastic vasculitis. She states that skin biopsy confirmed the diagnosis. It has involved both her legs her arms. It was treated with prednisone. Patient worked up for systemic vasculitis multiple times and no evidence of systemic vasculitis was found. Patient states that since 2019 she had another attack of vasculitis involving her skin about a year and a half ago, treated with prednisone. Has not had any other recurrences. She states that she was evaluated by real estate assistant Dr. Cano in 2 or 3 years ago and methotrexate was suggested. She was told that she has rheumatoid arthritis and osteoarthritis. Currently patient states that she gets intermittent left ankle pain and tingling and numbness when she stands in the shower. Gets intermittent knee pain. No significant swelling. She denies any history of DVT/PE Initial history by Dr. Smith: Patient diagnosed with leukocytoclastic vasculitis in April 2020 after presenting with a diffuse painful rash on her bilateral elbows and bilateral lower extremities. Her symptoms began in February 2020 and have since significantly improved. She was treated with a prednisone taper, Bactrim, as well as a topical cream. She has been following with dermatology regularly for this. Her rash has significantly improved, she only has a few lesions left on her left ankle / foot. The pain associated with the rash is also significantly improved. She denies any associated fevers, rash on her face, dyspnea, hemoptysis, nose bleeds, oral or nasal ulcers, joint swelling or joint pain, no foamy /frothy urine. Patient has a history of knee osteoarthritis. She was started on methotrexate in October 2017 for her knee pain but was then switched to Arava after 1 month due to weight gain. She had no relief of her knee pain with either of these medications. Arava was stopped in July 2018 as the were no signs of an inflammatory arthritis present. [facility] Medical History Asthma exacerbation Sinusitis Somnolence, daytime Snoring Morbid obesity Cough Asthma Allergic rhinitis Obesity (BMI 30-39.9) PCOS (polycystic ovarian syndrome) Vitamin D deficiency Surgical History History of bladder surgery Hx of dilation and curettage Hx of section Hx laparoscopic cholecystectomy Hx of tooth extraction Hx of hysterectomy Family History Father Heart disease Mother Diabetes mellitus Raynaud disease Paternal Grandfather Diabetes mellitus Paternal Uncle Diabetes mellitus Social History Household Members: Children Housing: House Do you presently have visiting nurse or other home services: No (appointment for EXCEL ANALYST, in progress) Alcohol intake: current Alcohol intake frequency: a few times a month Alcohol type: wine Patient Tobacco Use Status: Former Tobacco user Tobacco use type: Cigarette Cigarettes Per Day: 3 Second Hand Smoke Exposure: No Substance Use Type: Marijuana Advance Directives Date on File: 01/12/22 service: No Current occupational status: unemployed Review of Systems Const Denies fever(s) Musc Reports arthralgias and Denies joint swelling Skin/Breast Denies rash Physical Exam Vital Signs: Last Vital Signs Pulse 77 06/15/24 07:46 BP 112/78 06/15/24 07:46 Pulse Ox 98 06/15/24 07:46 Oxygen Delivery Method Room Air 06/15/24 07:46 BMI result Body Mass Index 40.4 Const General: cooperative, healthy appearing and comfortable Nutritional Appearance: obese morbidly obese Orientation/consciousness: patient oriented x3 Limitations: no limitations HEENT Head: Yes normocephalic and Yes atraumatic Mouth: moist mucous membranes Resp Effort & Inspection: normal respiratory effort and able to speak in complete sentences Auscultation: clear to auscultation bilaterally Cardio Rate: regular rate Rhythm: regular rhythm Skin Other: Hyperpigmented rashes on left ankle Rashes from 2020 Neuro General: patient oriented x3 Assessment & Plan Assessment & Plan (1) Leukocytoclastic vasculitis: Code(s): M31.0 - Hypersensitivity angiitis Category: Medical Plan: This is a 48-year-old female with a history of leukocytoclastic vasculitis who presents for follow-up. She had an attack of leukocytoclastic vasculitis back in 2019. This was confirmed with skin biopsy per patient. (results not available to review) Treated with prednisone. She states that she had another much milder attack about a year and a half ago. Patient was worked up for systemic vasculitis in the past. She had negative serologies except for a positive LUCRETIA, no proteinuria. Patient is not on prednisone regularly. Last time she was on prednisone was about a month ago for an asthma exacerbation. She has not had recurrent attacks of leukocytoclastic vasculitis that requires prednisone. At this time I do not see a need for a DMARD. Advised patient to return as needed Medications: New 2 acetaminophen ER (Tylenol Arthritis Pain) 650 mg PO Q8H PRN 90 tabs 0RF fever or pain Coding Level of Care Code New Pt Level 3 (21047) Diagnoses Leukocytoclastic vasculitis M31.0
[2024-06-15 07:46] VITALS: BP 112/78; PULSE 77; O2SAT 98; BMI 40.4
== END 2024-06-15 08:25 | disposition home or self-care (01) ==
LOC: HO.RHE 07:17
PROVIDERS: PCP Internal Medicine; Visit Provider Student in an Organized Health Care Education/Training Program
DX: M31.0 Hypersensitivity angiitis (principal)
CPT/HCPCS: 99203

== ENCOUNTER → 2024-06-15 07:16 | Outpatient (BNVA) | payer MEDICAID, SELFPAY | PROVIDERS: PCP Internal Medicine; Visit Provider Student in an Organized Health Care Education/Training Program | DX: M31.0 Hypersensitivity angiitis (principal) | CPT/HCPCS: 99202 ==

== ENCOUNTER 2024-08-27 10:09 | Outpatient (AMB) | payer MEDICAID, SELFPAY ==
[2024-08-27 10:13] VITALS: BP 118/62; PULSE 82; O2SAT 98; BMI 39.6
--- NOTE | 2024-08-27 10:13 | A.OFFVIS_ITS ---
Vital Signs 08/27/24 10:13 Height 4 ft 11 in Weight 196 lb 3.382 oz BMI 39.6 BP 118/62 Blood Pressure Location Rt brachial Position Sitting Pulse 82 Pulse Source Pulse Oximeter Pulse Oximetry (%) 98 Oxygen Delivery Method Room Air Intake Visit Reasons: Abdominal pain Intake Note: ESTABLISHED PATIENT Reason; >1 YR FU. Re Est Changes/concerns? abd pain, generalized, diarrhea. Pt has been developing worsening sx over the summer and into the fall of this last year. Pt was advised by PCP to return to GI. Allergies tramadol Allergy (Intermediate, Verified 08/27/24 10:18) swelling buspirone [From BuSpar] Allergy (Mild, Verified 08/27/24 10:18) rash lamotrigine [From Lamictal] Allergy (Mild, Verified 08/27/24 10:18) Unknown naproxen Allergy (Unknown, Verified 08/27/24 10:18) anaphylaxis NSAIDS (Non-Steroidal Anti-Inflamma [NSAIDS (NON-STEROIDAL ANTI-INFLAMMA] Allergy (Unknown, Verified 08/27/24 10:18) ANAPHYLAXIS Penicillins [PENICILLINS] Allergy (Unknown, Verified 08/27/24 10:18) ANAPHYLAXIS methotrexate Allergy (Verified 08/27/24 10:18) Rash Medication List - Last Reconciled 08/27/24 by MADONNA Leon acetaminophen ER (Tylenol Arthritis Pain) 650 mg PO Q8H PRN albuterol sulfate 90 mcg/actuation (Ventolin HFA) 2 puffs PO Q4-6H PRN albuterol sulfate 2.5 mg (3 mL) inhalation Q6-8H 30 days baclofen 10 mg PO BID cetirizine (Zyrtec) 10 mg PO DAILY cholecalciferol (vitamin D3) 50 mcg PO DAILY 30 days diphenhydramine HCl (Laureen-Dryl) 25 mg PO TID PRN esomeprazole magnesium (Nexium) 40 mg PO BID fluticasone propion-salmeterol 250-50 mcg/dose (Advair Diskus) 1 inh inhalation BID 30 days fluticasone propionate 50 mcg/actuation 1 spray intranasal BID furosemide (Lasix) 40 mg PO DAILY hydroxyzine HCl 10 mg PO QID PRN loperamide (Anti-Diarrheal (loperamide)) mg PO loratadine 10 mg PO DAILY losartan 25 mg PO DAILY mirabegron ER (Myrbetriq) 25 mg PO QAM montelukast 10 mg PO BEDTIME nicotine (polacrilex) 4 mg PO Q2H PRN ondansetron 4 mg PO Q8H oxycodone 5 mg PO Q6H PRN sumatriptan succinate mg PO topiramate 100 mg PO BEDTIME valacyclovir (Valtrex) 1,000 mg PO DAILY varenicline 1 mg PO DAILY zolpidem ER 12.5 mg PO BEDTIME PRN HPI HPI Abdominal pain: Details: LAST VISIT 05/25/2023 Abdominal pain GERD (gastroesophageal reflux disease) Constipation Plan CT scan results discussed with patient. No acute abnormalities found. Patient states that she is feeling better after taking Nexium. Continue Nexium daily. Patient was also encouraged to avoid dietary triggers in late night snacking. Staying upright for minimum 3 hours after meals discussed with patient. Patient was encouraged to try to lose weight. Avoid food that is high in fat, greasy. Patient will try to get Citrucel [id number] or any other fiber that will help her bulk her stools. Patient can take Senokot on as needed basis in the evening if she feels constipated. Medications New cetirizine (Zyrtec) 10 mg PO DAILY 30 tabs 0RF Refilled methylcellulose (laxative) (Citrucel) take it with full glass of water 500 mg PO DAILY 90 tabs 2RF K59.00 esomeprazole magnesium (Nexium) 40 mg PO DAILY 90 caps 5RF K21.9 TODAY'S VISIT Patient is here today for requested visit. Patient was seen in 2022. Reports recent symptoms with nausea, vomiting and diarrhea. Symptoms started back in March of 2024. Patient had stress where she had to move and was homeless for about 3 months her symptoms exacerbated in the past few months. Patient is taking Nexium twice a day and continues to have epigastric pain postprandially and acid reflux. Frequent diarrhea, sometimes watery stool. Patient reports that she has not had a formed stool in the while. Patient did not notice if any food is making her symptoms worse. Patient is not eating much fiber. Trying to stay away from certain food. Patient admits to be taking oxycodone for her back pain occasionally. Patient does not believe that she feels like she is c onstipated. Uses loperamide almost every day to control her symptoms. Patient denies traveling anywhere or being around anyone with similar symptoms. Patient denies fever or chills. Abdominal pain mostly in her lower abdomen and sometimes epigastric depending on what she eats. Reports postprandial bloating and very gassy. [facility] Medical History (Updated 08/27/24 @ 10:57 by Mily Rubi [facility]) GERD (gastroesophageal reflux disease) Asthma exacerbation Sinusitis Somnolence, daytime Snoring Morbid obesity Cough Asthma Allergic rhinitis Obesity (BMI 30-39.9) PCOS (polycystic ovarian syndrome) Vitamin D deficiency Surgical History History of bladder surgery Hx of dilation and curettage Hx of section Hx laparoscopic cholecystectomy Hx of tooth extraction Hx of hysterectomy Family History Father Heart disease Mother Diabetes mellitus Raynaud disease Paternal Grandfather Diabetes mellitus Paternal Uncle Diabetes mellitus Social History Household Members: Children Housing: House Do you presently have visiting nurse or other home services: No (appointment for SENSOR TECHNICIAN, in progress) Alcohol intake: current Alcohol intake frequency: a few times a month Alcohol type: wine Patient Tobacco Use Status: Former Tobacco user Tobacco use type: Cigarette Cigarettes Per Day: 3 Second Hand Smoke Exposure: No Substance Use Type: Marijuana Advance Directives Date on File: 01/12/22 service: No Current occupational status: unemployed Review of Systems Const Denies weight gain, Denies weight loss and Reports other (Episode of dizziness few days ago) ENT Reports no additional complaints, Denies dysphagia and Denies odynophagia Card Reports no additional complaints Resp Reports no additional complaints GI Reports abdominal pain, Denies belching, Denies melena, Reports bloating, Denies change in bowel habits, Denies dysphagia, Denies excessive flatus, Denies dyspepsia, Denies heartburn, Denies diarrhea, Reports loose stools, Denies nausea, Denies odynophagia and Denies vomiting Reports no additional complaints Musc Reports no additional complaints Neuro Reports no additional complaints Psych Reports no additional complaints Endo Reports no additional complaints Physical Exam Vital Signs: Last Vital Signs Pulse 82 08/27/24 10:13 BP 118/62 08/27/24 10:13 Pulse Ox 98 08/27/24 10:13 Oxygen Delivery Method Room Air 08/27/24 10:13 BMI result Body Mass Index 39.6 Const General: healthy appearing, no acute distress and well developed Nutritional Appearance: obese Orientation/consciousness: patient oriented x3 Resp Effort & Inspection: normal respiratory effort, able to speak in complete sentences, no tracheal deviation and symmetric chest movement Auscultation: clear to auscultation bilaterally Cardio Rate: regular rate GI Inspection: Yes normal to inspection, No distended and Yes obesity Palpation (GI): Soft to palpation, not firm, nontender and No hepatosplenomegaly present Auscultation: normal bowel sounds General: Yes no CVA tenderness Back/Spine/Pelvis Back: no CVA tenderness Skin General skin exam: elasticity normal, turgor normal and dry skin Neuro General: patient oriented x3 Psych Appearance: grossly normal Mental Status: mental status grossly normal Assessment & Plan Assessment & Plan (1) GERD (gastroesophageal reflux disease): Code(s): K21.9 - Gastro-esophageal reflux disease without esophagitis Category: Medical Qualifiers: Esophagitis presence: esophagitis presence not specified Qualified Code(s): K21.9 - Gastro-esophageal reflux disease without esophagitis (2) Nausea & vomiting: Code(s): R11.2 - Nausea with vomiting, unspecified Qualifiers: Vomiting type: unspecified Qualified Code(s): R11.2 - Nausea with vomiting, unspecified (3) Abdominal pain: Code(s): R10.9 - Unspecified abdominal pain Qualifiers: Abdominal location: lower abdomen, unspecified Qualified Code(s): R10.30 - Lower abdominal pain, unspecified (4) Diarrhea: Code(s): R19.7 - Diarrhea, unspecified Qualifiers: Diarrhea type: functional diarrhea Qualified Code(s): K59.1 - Functional diarrhea Plan Patient will get tested for H pylori. She will start famotidine for 2 weeks. 24-48 hours before testing. Patient will start Citrucel 2 tablets daily. Increase fluid intake and activity to promote better bowel motility. May use loperamide as needed. DD: Pancreatitis, H pylori, celiac, IBS, IBD. Will check CRP, CBC, CMP, lipase, vitamin B12, folate, vitamin-D, thyroid study and transglutaminase. Want patient to do GI panel, however she reports that she does not want to do a stool study as she does not want to put stool sample in the refrigerator and she does not have a transportation to bring the sample righ t away. Patient will return to the office in 5-6 weeks. She will call us if she will have worsening symptoms. She is agreeable to this plan and verbalizes understanding of instructions. She was given the opportunity to ask questions and all questions answered. Orders: Orders TSH reflex Free T4 Today K59.00 - Constipation, unspecified Transglutaminase IgA Today R10.9 - Unspecified abdominal pain Lipase Today R10.9 - Unspecified abdominal pain Vitamin B12 and Folate Today R19.7 - Diarrhea, unspecified Vitamin D 25-OH (D2 and D3) Today E55.9 - Vitamin D deficiency, unspecified C Reactive Protein Today K58.9 - Irritable bowel syndrome, unspecified H Pylori Breath Test Today K21.9 - Gastro-esophageal reflux disease without esophagitis Complete Blood Count no Diff Today K21.9 - Gastro-esophageal reflux disease without esophagitis Comprehensive Met. Panel Today K21.9 - Gastro-esophageal reflux disease without esophagitis Medications: New methylcellulose (laxative) (Citrucel) 1,000 mg (2 x 500 mg) PO DAILY 60 tabs 2RF famotidine (Pepcid) 20 mg PO BID 60 tabs 3RF K29.70 - Gastritis, unspecified, without bleeding methylcellulose (laxative) (Citrucel) 1,000 mg (2 x 500 mg) PO DAILY 60 tabs 2RF famotidine (Pepcid) 20 mg PO BID 30 tabs 0RF K29.70 - Gastritis, unspecified, without bleeding Coding Level of Care Code Est Pt Level 4 (18243) Diagnoses Gastroesophageal reflux disease, unspecified whether esophagitis present K21.9 Esophagitis presence: esophagitis presence not specified Nausea and vomiting, unspecified vomiting type R11.2 Vomiting type: unspecified Lower abdominal pain R10.30 Abdominal location: lower abdomen, unspecified Functional diarrhea K59.1 Diarrhea type: functional diarrhea Time Spent (min) 40 Comment 25 minutes spent with patient and additional 15 minutes spent reviewing her records
== END 2024-08-27 10:52 | disposition home or self-care (01) ==
PROVIDERS: PCP Internal Medicine; Visit Provider Nurse Practitioner Family
DX: K21.9 Gastro-esophageal reflux disease without esophagitis (principal); R11.2 Nausea with vomiting, unspecified; R10.30 Lower abdominal pain, unspecified; K59.1 Functional diarrhea
CPT/HCPCS: 99214

== ENCOUNTER 2024-08-27 10:09 | Outpatient (REF) | payer MEDICAID, SELFPAY ==
[2024-08-27 12:26] LABS: Hematocrit 40.4 % (37.0-47.0); Hemoglobin 12.9 g/dl (12.0-16.0); Mean Corpuscular HGB Conc 31.9 g/dl (31.0-35.0); Mean Corpuscular Hemoglobin 26.8 pg (27.0-33.0); Mean Corpuscular Volume 83.8 fL (80.0-98.0); Mean Platelet Volume 10.3 fL (9.4-12.3); Platelet Count 368 X10*3/uL (160-400); Red Blood Count 4.82 X10*6/uL (4.20-5.50); Red Cell Distribution Width 14.8 % (11.0-16.0); White Blood Count 12.9 X10*3/uL (4.8-10.8)
[2024-08-27 13:00] LABS: Alanine Aminotransferase 10 U/L (0-31); Albumin Level 4.2 g/dL (3.5-5.0); Alkaline Phosphatase 102 U/L (39-117); Anion Gap 14 (12-20); Aspartate Amino Transferase 19 U/L (5-31); Bilirubin Total 0.4 mg/dL (0.0-1.0); Blood Urea Nitrogen 15 mg/dL (9-16); C Reactive Protein 2.22 mg/dL (< or = 0.50); Calcium 9.1 mg/dL (8.4-10.2); Carbon Dioxide 27 mmol/L (22-29); Chloride 104 mmol/L (96-108); Estimated Glomerular Filt Rate > 60; Glucose Random 75 mg/dL (60-115); Lipase 14 U/L (8-78); Potassium 3.8 mmol/L (3.3-5.1); Sodium 141 mmol/L (135-145)
[2024-08-27 13:16] LABS: TSH reflex Free T4 1.62 uIU/mL (0.32-4.0)
[2024-08-27 13:22] LABS: Vitamin B12 427 pg/mL (200-900)
[2024-08-28 19:18] LABS: Transglutaminase IgA <1.0 U/mL
[2024-08-31 16:09] LABS: Vitamin D 25-OH, D2 <4 ng/mL; Vitamin D 25-OH, D3 56 ng/mL; Vitamin D 25-OH, Total 56 ng/mL (30-100)
== END 2024-08-27 10:10 | disposition home or self-care (01) ==
LOC: HO.LAB 10:09
PROVIDERS: PCP Internal Medicine; Visit Provider Nurse Practitioner Family
DX: K59.00 Constipation, unspecified (principal); R10.9 Unspecified abdominal pain; K58.9 Irritable bowel syndrome, unspecified; K21.9 Gastro-esophageal reflux disease without esophagitis; E55.9 Vitamin D deficiency, unspecified; R11.2 Nausea with vomiting, unspecified; R10.30 Lower abdominal pain, unspecified; K59.1 Functional diarrhea
CPT/HCPCS: 36415; 80053; 82306; 82607; 82746; 83690; 84443; 85027; 86140; 86364; 99212

== ENCOUNTER 2024-09-14 13:10 | Outpatient (REF) | payer MEDICAID, SELFPAY ==
[2024-09-15 12:01] LABS: H Pylori Breath Test Positive (Negative)
== END 2024-09-14 13:11 | disposition home or self-care (01) ==
LOC: HO.LNP 13:10
PROVIDERS: PCP Internal Medicine; Visit Provider Nurse Practitioner Family
DX: K21.9 Gastro-esophageal reflux disease without esophagitis (principal)
CPT/HCPCS: 83013; 99211

== ENCOUNTER → 2024-09-14 13:10 | Outpatient (AMB) | payer MEDICAID, SELFPAY | END | disposition home or self-care (01) | PROVIDERS: PCP Internal Medicine; Visit Provider Nurse Practitioner Family ==

== ENCOUNTER 2024-09-28 16:37 | Outpatient (AMB) | payer MEDICAID, SELFPAY ==
--- OUTSIDE RECORDS SUMMARY | 2024-09-28 16:40 | XMS_ITS | Encounter Summary ---
Demographics Address [address] [place] [address] [address] [place] [address] Work Phone Home Phone Mobile Phone Email Address Preferred Language en Marital Status Single Jainism Affiliation Unknown Race White Ethnic Group or Author Organization [employer] Address [address] [place] [address] [address] [place] [address] Care Team Providers Care Germination Testing Manager Name Role Phone Aaron Pisano MD Primary Care Provide r Reason for Visit * Reason Comments Med Refill Encounter Details Date Type Department Care Team ([facility] st Contact Info) Description 01/30/2024 Refill [facility] MEDICINE [address] [place], [place] [phone] Aaron Pisano MD [address] [place], [place] [phone] Chronic midline low back pain without sciatica Social History Tobacco Use Types Packs/Day Years Used Date Smoking Tobacco: Former Cigarettes Passive Smoke Exposure: Past Smokeless Tobacco: Never Alcohol Use Standard Drinks/Week Comments Never 0 (1 standard drink = 0.6 oz pur e alcohol) Depression Answer Date Recorded Patient Health Questionnaire-9 Score 12 08/23/2023 Patient Health Questionnaire-9 Score 12 08/23/2023 Last PHQ-9: Questionnaire Data Not on file 0 08/23/2023 Housing Stability Answer Date Recorded What is your housing situation today? I have ella sing 08/15/[address] you li ve. Do you have problems with any of the following? None of the above 08/15/2023 Food Insecurity Answer Date Recorded Within the past 12 months, y ou worried that your food would run out before you got money to buy more: Never True 08/15/2023 Within the past 12 months,th e food you bought just didn't last and you didn't have enough money to get more: Never True 03/2024 Transportation Answer Date Recorded In the past 12 months, has l ack of transportation kept you from medical appts, meetings, work or from getting things needed for daily living? No 08/15/2023 Utilities Answer Date Recorded In the past 12 months, has t he electric, gas, oil or water company threatened to shut off services in your home? No 08/15/2023 Depression Answer Date Recorded Patient Health Questionnaire-2 Score 0 08/23/2023 Comments Unknown Sex and Gender Information Value Date Recorded Sex Assigned at Female 06/07/2022 10:14 AM EDT Legal Sex Female 10:14 AM EDT Gender Identity Female 06/07/2022 10:14 AM EDT Sexual Orientation Straight 06/07/2022 10 :14 AM EDT documented as of this encounter Plan of Treatment Upcoming Encounters Date Type Department Care Team (Late st Contact Info) Description 10/18/2024 11:00 AM EDT Clinical Support [facility] MED & PEDS [address] [place] [address] Altagracia Mancilla RN [address] [place] [address] 01/31/2025 10:00 AM EDT Office Visit [facility] ADULT DENTAL [address] [place] [address] Zhanna Hernandez documented as of this encounter Goals Goal Patient Goal Type Associated Problems Recent Progress Patient-Stated? Author Blood Pressure < 140/90 Blood Pressure 118/64( 025 2:32 PM EST) No Giovanna Banks PharmD documented as of this encounter Visit Diagnoses Diagnosis Chronic midline low back pain without sciatica documented in this encounter Additional Health Concerns Assessment Noted Time PHQ-9 Depression Total Score: 12 024 1:46 PM EST documented as of this encounter Care Teams Germination Testing Manager Relationship Specialty Start Date End Date Aaron Pisano MD [address] [place] [address] PCP - General Internal Medicine 05/10/14 Antonietta Lim Outpatient PsychiatristStakeholder Manager 09/18/24 documented as of this encounter
--- OUTSIDE RECORDS SUMMARY | 2024-09-28 16:40 | XMS_ITS | Encounter Summary ---
Demographics Address [address] [place] [address] [address] [place] [address] Work Phone Home Phone Mobile Phone Email Address [email or web address] Preferred Language en Marital Status Single Worship Affiliation Unknown Race White Ethnic Group or Author Organization [employer] Address [address] [facility] [address] [place] [address] Care Team Providers Care Rubber Roller Grinder Operator Name Role Phone Aaron Pisano MD Primary Care Provide r Reason for Visit * Reason Comments Care Coordination ICP CP Care Coordina tor Encounter Details Date Type Department Care Team ([facility] st Contact Info) Description 09/18/2024 Telephone [facility] MEDICINE [address] [place] [address] Aaron Pisano MD [address] [place] [address] Care Coordination (ICP CP Professor Of English ) Social History Tobacco Use Types Packs/Day Years Used Date Smoking Tobacco: Former Cigarettes Passive Smoke Exposure: Past Smokeless Tobacco: Never Comments:Abl=out 5 years sin ce she quit Alcohol Use Standard Drinks/Week Comments Never 0 (1 standard drink = 0.6 oz pur e alcohol) Alcohol Answer Date Recorded Frequency of Alcohol Consumption Not on file 06/05/2024 Average Number of Drinks Not on file 024 Frequency of Binge Drinking Not on file 05/09 Score 0 06/05/2024 Depression Answer Date Recorded Patient Health Questionnaire-9 Score 2 06/05/2024 Patient Health Questionnaire-9 Score 2 06/05/2024 Last PHQ-9: Questionnaire Data Not on file 1 Housing Stability Answer Date Recorded What is your housing situation today? I have ella cheryl 08/24/[address] you li ve. Do you have problems with any of the following? None of the above 08/24/2024 Food Insecurity Answer Date Recorded Within the past 12 months, y ou worried that your food would run out before you got money to buy more: Sometimes True 2024 Within the past 12 months,th e food you bought just didn't last and you didn't have enough money to get more: Sometimes True 08/24/2024 Transportation Answer Date Recorded In the past 12 months, has l ack of transportation kept you from medical appts, meetings, work or from getting things needed for daily living? No 08/24/2024 Utilities Answer Date Recorded In the past 12 months, has t he electric, gas, oil or water company threatened to shut off services in your home? No 08/24/2024 Depression Answer Date Recorded Patient Health Questionnaire-2 Score 0 06/05/2024 Internet Access Answer Date Recorded Internet Access Q1 Yes 08/24/2024 Internet Access Q2 Not on file 08/24/2024 Comments Unknown Sex and Gender Information Value Date Recorded Sex Assigned at Female 06/07/2022 10:14 AM EDT Legal Sex Female 10:14 AM EDT Gender Identity Female 06/07/2022 10:14 AM EDT Sexual Orientation Straight 06/07/2022 10 :14 AM EDT documented as of this encounter Progress Notes * Arianna Gunn - 09/18/2024 2:56 PM EST PCP Designee has received and reviewed Care Plan from [facility]: Professor Of English: Antonietta Lim Contact Information: [phone] Care Plan scanned into patient's EHR and notification sent to PCP. documented in this encounter Plan of Treatment Upcoming Encounters Date Type Department Care Team (Late st Contact Info) Description 10/18/2024 11:00 AM EDT Clinical Support [facility] MED [facility] PEDS [address] [place] [address] Altagracia Mancilla, GRACIELA [address] [place] [address] 01/31/2025 10:00 AM EDT Office Visit [facility] ADULT DENTAL [address] [place] [address] Zhanna Hernandez documented as of this encounter Goals Goal Patient Goal Type Associated Problems Recent Progress Patient-Stated? Author Blood Pressure < 140/90 Blood Pressure 118/64( 025 2:32 PM EST) No Giovanna Banks, Carleen documented as of this encounter Visit Diagnoses Not on filedocumented in this encounter Additional Health Concerns Assessment Noted Time PHQ-9 Depression Total Score: 2 06/05/20 24 8:38 AM EDT documented as of this encounter Care Teams Rubber Roller Grinder Operator Relationship Specialty Start Date End Date Aaron Pisano MD [address] [place] [address] PCP - General Internal Medicine 05/10/14 Antonietta Lim Risk Management InternshipSenior Clinical Research Scientist 09/18/24 documented as of this encounter
--- OUTSIDE RECORDS SUMMARY | 2024-09-28 16:40 | XMS_ITS | Encounter Summary ---
Demographics Address [address] [place] [address] [address] [place] [address] Work Phone Home Phone Mobile Phone Email Address Preferred Language en Marital Status Single Voodoo Affiliation Unknown Race White Ethnic Group or Author Organization [employer] [facility] Address [address] [place] [address] [address] [place] [address] Care Team Providers Care Tool And Production Planner Name Role Phone Aaron Pisano MD Primary Care Provide r Encounter Details Date Type Department Care Team (Latest Contact Info) Description 11/10/2020 Abstract [facility] CONVERSIONS Dental, Provider, DDS Social History Tobacco Use Types Packs/Day Years Used Date Smoking Tobacco: Never Assessed Comments Unknown Sex and Gender Information Value [...] Description 10/18/2024 11:00 AM EDT Clinical Support [facility] MED [facility] PEDS [address] [place] [address] Altagracia Mancilla, GRACIELA [address] [place] [address] 01/31/2025 10:00 AM EDT Office Visit [facility] ADULT DENTAL [address] [place] [address] Zhanna Hernandez documented as of this encounter Visit Diagnoses Not on filedocumented in this encounter Care Teams Tool And Production Planner Relationship Specialty Start Date End Date Aaron Pisano MD [address] [place], [place] [phone] PCP - General Internal Medicine 05/10/14 Antonietta Lim Radiologist DiagnosticMiter Operator 09/18/24 documented as of this encounter
--- OUTSIDE RECORDS SUMMARY | 2024-09-28 16:40 | XMS_ITS | Encounter Summary ---
Demographics Address [address] [place] [address] [address] [place] [address] Work Phone Home Phone Mobile Phone Email Address Preferred Language en Marital Status Single Restorationism Affiliation Unknown Race White Ethnic Group or Author Organization [employer] [facility] Address [address] [place] [address] [address]t [place] [address] Care Team Providers Care Principal Data Architect Name Role Phone Aaron Pisano MD Primary Care Provide r Encounter Details Date Type Department Care Team (Latest Contact Info) Description 07/16/2019 Abstract [facility] CONVERSIONS Dental, Provider, DDS Social History [...] Description 10/18/2024 11:00 AM EDT Clinical Support [facility] MED & PEDS [address] [place] [address] Altagracia Mancilla, GRACIELA [address] [place] [address] 01/31/2025 10:00 AM EDT Office Visit [facility] ADULT DENTAL [address] [place] [address] Zhanna Hernandez documented as of this encounter Visit Diagnoses Not on filedocumented in this encounter Care Teams Principal Data Architect Relationship Specialty Start Date End Date Aaron Pisano MD [address] [place], [place] [phone] PCP - General Internal Medicine 05/10/14 Antonietta Lim Scrub Wheel OperatorCylinder Machine Operator 09/18/24 documented as of this encounter
--- OUTSIDE RECORDS SUMMARY | 2024-09-28 16:40 | XMS_ITS | Encounter Summary ---
Demographics Address [address] [place] [address] [address] [place] [address] Work Phone Home Phone Mobile Phone Email Address Preferred Language en Marital Status Single Samaritan Affiliation Unknown Race White Ethnic Group or Author Organization [employer] Address [address] [place] [address] [address]t [place] [address] Care Team Providers Care Running Instructor Name Role Phone Aaron Pisano MD Primary Care Provide r Reason for Visit * Reason Comments Med Refill Encounter Details Date Type Department Care Team ([facility] st Contact Info) Description 05/07/2024 Refill [facility] MEDICINE [address] [place], [place] [phone] Aaron Pisano MD [address] [place], [place] [phone] Chronic midline low back pain without sciatica [...] Description 10/18/2024 11:00 AM EDT Clinical Support [facility] MED & PEDS [address] [place] [address] Altagracia Mancilla RN [address] [place] [address] 01/31/2025 10:00 AM EDT Office Visit [facility] ADULT DENTAL [address] [place] [address] Zhanna Hernandez documented as of this encounter [...] documented as of this encounter Care Teams Running Instructor Relationship Specialty Start Date End Date Aaron Pisano MD [address] [place] [address] PCP - General Internal Medicine 05/10/14 Antonietta Lim Wellness CoachDrop Clipper 09/18/24 documented as of this encounter
--- OUTSIDE RECORDS SUMMARY | 2024-09-28 16:40 | XMS_ITS | Encounter Summary ---
Demographics Address [address] [place] [address] [address] [place] [address] Work Phone Home Phone Mobile Phone Email Address Preferred Language en Marital Status Single Tenriism Affiliation Unknown Race White Ethnic Group or Author Organization [employer] Address [address] [place] [address] 7t [place] [address] Care Team Providers Care Master Electrician Name Role Phone Aaron Pisano MD Primary Care Provide r Reason for Visit * Reason Onset Date Comments Med Refill 11/16/2022 Encounter Details Date Type Department Care Team ([facility] st Contact Info) Description 11/16/2022 Telephone [facility] MEDICINE [address] [place] [address] Aaron Pisano MD [address] [place] [address] Med Refill Social History Tobacco Use Types Packs/Day Years Used Date Smoking Tobacco: Never Smokeless Tobacco: Never Alcohol Use Standard Drinks/Week Comments Never 0 (1 standard drink = 0.6 oz pur e alcohol) Depression Answer Date Recorded Patient Health Questionnaire-2 Score 0 08/03/2022 Comments Unknown Sex and Gender Information Value Date Recorded Sex Assigned at Female 06/07/2022 10:14 AM EDT Legal Sex Female 10:14 AM EDT Gender Identity Female 06/07/2022 10:14 AM EDT Sexual Orientation Straight 06/07/2022 10 :14 AM EDT COVID-19 Exposure Response Date Recorded In the last 10 days, have yo u been in contact with someone who was confirmed or suspected to have Coronavirus/COVID-19? No / Unsure 11/15/2022 12:36 PM EDT documented as of this encounter Miscellaneous Notes * Telephone Encounter - Ankit Hines - 11/30/2022 2:54 PM EDT Tc from pt requesting med refill status Please contact pt at [phone] * Telephone Encounter - Sonnymeleyann Jain - 11/30/2022 1:14 PM EDT Tc from pt requesting medication status. Please contact pt at [phone] * Telephone Encounter - Jenny Smith - 11/16/2022 4:36 PM EDT Tc from pt requesting med refill for medication oxyCODONE (Roxicodone) 5 MG immediate release tablet. documented in this encounter Plan of Treatment Upcoming Encounters Date Type Department Care Team (Late st Contact Info) Description 10/18/2024 11:00 AM EDT Clinical Support [facility] CHC MED & PEDS [address] [place] [address] Altagracia Mancilla, RN [address] [place] [address] 01/31/2025 10:00 AM EDT Office Visit [facility] ADULT DENTAL [address] [place] [address] Zhanna Hernandez documented as of this encounter Visit Diagnoses Not on filedocumented in this encounter Care Teams Master Electrician Relationship Specialty Start Date End Date Aaron Pisano MD [address] [place] [address] PCP - General Internal Medicine 05/10/14 Antonietta Lim Product Safety TesterResource Recovery Engineer 09/18/24 documented as of this encounter
--- OUTSIDE RECORDS SUMMARY | 2024-09-28 16:40 | XMS_ITS | Encounter Summary ---
Demographics Address [address] [place] [address] [address] [place] [address] Work Phone Home Phone Mobile Phone Email Address Preferred Language en Marital Status Single Christian Affiliation Unknown Race White Ethnic Group or Author Organization [employer] Address [address] [facility] 7t [place] [address] Care Team Providers Care Front Desk Receptionist Name Role Phone Aaron Pisano MD Primary Care Provide r Reason for Visit * Reason Comments Med Refill Encounter Details Date Type Department Care Team ([facility] st Contact Info) Description 08/09/2023 Refill [facility] MEDICINE [address] [place] [address] Sumi Vang, ANP [address] [place] [address] Chronic midline low back pain without sciatica Social History Tobacco Use Types Packs/Day Years Used Date Smoking Tobacco: Former Cigarettes Passive Smoke Exposure: Never Smokeless Tobacco: Never Alcohol Use Standard Drinks/Week Comments Never 0 (1 standard drink = 0.6 oz pur e alcohol) Housing Stability Answer Date Recorded What is your housing situation today? I do not have housing (Staying with others, in a hotel, in a assisted, living outside on the street, on a beach, in a car, or in a park 05/17/[address] you li ve. Do you have problems with any of the following? None of the above 05/17/2023 Food Insecurity Answer Date Recorded Within the past 12 months, y ou worried that your food would run out before you got money to buy more: Never True 05/25/2023 Within the past 12 months,th e food you bought just didn't last and you didn't have enough money to get more: Never True Transportation Answer Date Recorded In the past 12 months, has l ack of transportation kept you from medical appts, meetings, work or from getting things needed for daily living? No 05/25/2023 Utilities Answer Date Recorded In the past 12 months, has t he electric, gas, oil or water company threatened to shut off services in your home? No 05/25/2023 Depression Answer Date Recorded Patient Health Questionnaire-2 [...] Description 10/18/2024 11:00 AM EDT Clinical Support [facility] CHC MED & PEDS [address] [place] [address] Altagracia Mancilla, RN [address] [place] [address] 01/31/2025 10:00 AM EDT Office Visit [facility] ADULT DENTAL [address] [place] [address] Zhanna Hernandez documented as of this encounter Goals Goal Patient Goal Type Associated Problems Recent Progress Patient-Stated? Author Blood Pressure < 140/90 Blood Pressure 118/64( 025 2:32 PM EST) No Giovanna Banks, SohamD documented as of this encounter Visit Diagnoses Diagnosis Chronic midline low back pain without sciatica documented in this encounter Care Teams Front Desk Receptionist Relationship Specialty Start Date End Date Aaron Pisano MD [address] [place] [address] PCP - General Internal Medicine 05/10/14 Antonietta Lim Joint FillerSite Engineer 09/18/24 documented as of this encounter
--- OUTSIDE RECORDS SUMMARY | 2024-09-28 16:40 | XMS_ITS | Encounter Summary ---
Demographics Address [address] [place] [address] [address] [place] [address] Work Phone Home Phone Mobile Phone Email Address Preferred Language en Marital Status Single Confucianism Affiliation Unknown Race White Ethnic Group or Author Organization [employer] Address [address] [place] [address] 7 [place] [address] Care Team Providers Care Personal Lines Agent Name Role Phone Aaron Pisano MD Primary Care Provide r Reason for Visit * Reason Comments Med Refill Encounter Details Date Type Department Care Team ([facility] Contact Info) Description 04/18/2023 Refill [facility] MEDICINE [address] [place] [address] Aaron Pisano MD [address] [place] [address] Chronic bilateral low back pain without sciatica Social History [...] Upcoming Encounters Date Type Department Care Team ([facility] Contact Info) Description 10/18/2024 11:00 AM EDT Clinical Support [facility] CHC MED & PEDS [address] [place], [place] [id number] Altagracia Mancilla RN 505 [place] [address] 01/31/2025 10:00 AM EDT Office Visit [facility] ADULT DENTAL [address] [place] [address] Zhanna Hernandez documented as of this encounter Goals Goal Patient Goal Type Associated Problems Recent Progress Patient-Stated? Author Blood Pressure < 140/90 Blood Pressure 118/64( 025 2:32 PM EST) No Giovanna Banks, SohamD documented as of this encounter Visit Diagnoses Diagnosis Chronic bilateral low back pain without sciatica documented in this encounter Care Teams Personal Lines Agent Relationship Specialty Start Date End Date Aaron Pisano MD [address] [place] [address] PCP - General Internal Medicine 05/10/14 Antonietta Lim Electronic Commerce SpecialistGroundwater Consultant 09/18/24 documented as of this encounter
--- OUTSIDE RECORDS SUMMARY | 2024-09-28 16:40 | XMS_ITS | Encounter Summary ---
Demographics Address [address] [place] [address] [address] [place] [address] Work Phone Home Phone Mobile Phone Email Address Preferred Language en Marital Status Single Sikh Affiliation Unknown Race White Ethnic Group or Author Organization [employer] Address [address] [place] [address] 7 [place] [address] Care Team Providers Care Rental Agent Name Role Phone Aaron Pisano MD Primary Care Provide r Reason for Visit * Reason Onset Date Comments Med Refill 09/14/2022 Encounter Details Date Type Department Care Team ([facility] st Contact Info) Description 09/14/2022 Telephone [facility] MEDICINE [address] [place] [address] Aaron Pisano MD [address] [place] [address] Med Refill Social History Tobacco Use Types [...] AM EDT documented as of this encounter Miscellaneous Notes * Telephone Encounter - Ankit Hines - 09/14/2022 10:17 AM EST Tc from pt requesting med refill Oxycodone 5 mg documented in this encounter Plan of Treatment Upcoming Encounters Date Type Department Care Team (Late st Contact Info) Description 10/18/2024 11:00 AM EDT Clinical Support [facility] CHC MED & PEDS [address] [place] [address] Altagracia Mancilla, RN [address] [place] [address] 01/31/2025 10:00 AM EDT Office Visit [facility] ADULT DENTAL [address] [place] [address] Zhanna Hernandez documented as of this encounter Visit Diagnoses Not on filedocumented in this encounter Care Teams Rental Agent Relationship Specialty Start Date End Date Aaron Pisano MD [address] [place] [address] PCP - General Internal Medicine 05/10/14 Antonietta Lim Auto Radiator SpecialistCivil Engineering Drafter 09/18/24 documented as of this encounter
--- OUTSIDE RECORDS SUMMARY | 2024-09-28 16:40 | XMS_ITS | Encounter Summary ---
Demographics Address [address] [place] [address] [address] [place] [address] Work Phone Home Phone Mobile Phone Email Address Preferred Language en Marital Status Single Mu-Ism Affiliation Unknown Race White Ethnic Group or Author Organization [employer] Address [address] [facility] 7t [place] [address] Care Team Providers Care Power And Recovery Superintendent Name Role Phone Aaron Pisano MD Primary Care Provide r Reason for Visit * Reason Onset Date Comments Nurse Triage 06/17/2023 Encounter Details Date Type Department Care Team ([facility] Contact Info) Description 06/17/2023 Telephone [facility] MEDICINE [address] [place] [address] Aaron Pisano MD [address] [place] [address] Nurse Triage Social History Tobacco Use Types Packs/Day Years [...] your housing situation today? I have ella luna 08/24/[address] you li [...] encounter Miscellaneous Notes * Telephone Encounter - Bessy Barron RN - 06/17/2023 12:51 PM EST Triage call Pt reports a fall down the stairs at home with injury to the bridge of nose and abrasion on face. Pt denies hitting head and denies loss of consciousness. This occured within ten minutes of call. Pt is advised to seek evaluation in the ED. Male voice said in back ground, it is only anabrasion to the bridge of the nose . Pt reports , I don't want to go to the Ed it takes too long .Pt reports a similar fall a day or two ago due to dizziness and weakness in bilateral lower extremities and Pt just went down without ability to control the fall. Pt sounds weak . Pt is requesting an apt with PCP now . Advised Pt there are no apts with providers at this time but, would be referred to ED any way. Advised the ED but, Pt reports will come to [facility] . Advised that Pt may be sent to ED if goes to [facility] anyway. Pt didn't say anything more. Advised to apply ice to bridge of nose and Pt agreed. Triage ended. Protocol Used: Falls and Falling (Adult) Protocol-Based Disposition: Go to ED/[facility] Now (or to Office with PCP Approval) Positive Triage Question: * Patient sounds very sick or weak to the triager * All higher-acuity triage questions were negative Care Advice Discussed: * Reassurance and Education - Small Cut or Scrape * Cleaning a Cut or Scrape * Antibiotic Ointment for a Cut or Scrape * Dressing a Cut or Scrape * Reasons To Call Back - Dirt in the wound persists after scrubbing - Looks infected (pus, redness) - Doesn't heal within 10 days - You become worse * Telephone Encounter - Praful Worrell - 06/17/2023 12:31 PM EST Symptom: Dizziness Outcome: Transfer to a nurse or provider NOW! Reason: Passed out and fell down the stairs, pt stated has rug parikh on face. The caller accepted this outcome Please contact at [phone] documented in this encounter Plan of Treatment Upcoming Encounters Date Type Department Care Team (Late st Contact Info) Description 10/18/2024 11:00 AM EDT Clinical Support [facility] CHC MED & PEDS [address] [place] [address] Altagracia Mancilla, RN [address] [place] [address] 01/31/2025 10:00 AM EDT Office Visit [facility] ADULT DENTAL [address] [place] [address] Zhanna Hernandez documented as of this encounter Goals Goal Patient Goal Type Associated Problems Recent Progress Patient-Stated? Author Blood Pressure < 140/90 Blood Pressure 118/64( 025 2:32 PM EST) No Giovanna Banks, PharmD documented as of this encounter Visit Diagnoses Not on filedocumented in this encounter Care Teams Power And Recovery Superintendent Relationship Specialty Start Date End Date Aaron Pisano MD [address] [place] [address] PCP - General Internal Medicine 05/10/14 documented as of this encounter
--- OUTSIDE RECORDS SUMMARY | 2024-09-28 16:40 | XMS_ITS | Encounter Summary ---
Demographics Address [address] [place] [address] [address] [place] [address] Work Phone Home Phone Mobile Phone Email Address Preferred Language en Marital Status Single Scientology Affiliation Unknown Race White Ethnic Group or Author Organization [employer] Address [address] [place] [address] [address]t [place] [address] Care Team Providers Care Porcelain Enamel Laborer Name Role Phone Aaron Pisano MD Primary Care Provide r Reason for Visit * Reason Comments Med Refill Encounter Details Date Type Department Care Team ([facility] Contact Info) Description 02/18/2023 Refill [facility] MEDICINE [address] [place] [address] Aaron Pisano MD [address] [place] [address] Social History Tobacco Use Types Packs/Day Years [...] suspected to have Coronavirus/COVID-19? No / Unsure 01/26/2023 2:24 PM EDT documented as of this encounter Plan of Treatment Upcoming Encounters Date Type Department Care Team ([facility] Contact Info) Description 10/18/2024 11:00 AM EDT Clinical Support [facility] CHC MED & PEDS [address] [place] [address] Altagracia Mancilla, RN [address] [place] [address] 01/31/2025 10:00 AM EDT Office Visit [facility] ADULT DENTAL [address] [place] [address] Zhanna Hernandez documented as of this encounter Visit Diagnoses Not on filedocumented in this encounter Care Teams Porcelain Enamel Laborer Relationship Specialty Start Date End Date Aaron Pisano MD [address] [place] [address] PCP - General Internal Medicine 05/10/14 Antonietta Lim Crane ManAssociate Genetics Professor 09/18/24 documented as of this encounter
--- OUTSIDE RECORDS SUMMARY | 2024-09-28 16:40 | XMS_ITS | Encounter Summary ---
Demographics Address [address] [place] [address] [address] [place] [address] Work Phone Home Phone Mobile Phone Email Address Preferred Language en Marital Status Single Religion Affiliation Unknown Race White Ethnic Group or Author Organization [employer] Address [address] [place] [address] 7t [place] [address] Care Team Providers Care Vacuum Drier Tender Name Role Phone Aaron Pisano MD Primary Care Provide r Reason for Visit * Reason Onset Date Comments Med Refill 08/02/2024 Encounter Details Date Type Department Care Team ([facility] st Contact Info) Description 08/02/2024 Telephone [facility] MEDICINE [address] [place] [address] Aaron Pisano MD [address] [place] [address] Med Refill Social History Tobacco Use Types [...] housing situation today? I have ella luna 08/15/[address] you li [...] the past 12 months, has t he [employer], gas, oil or water company threatened to shut off services in your home? No 08/15/2023 Depression Answer Date Recorded Patient Health Questionnaire-2 Score 0 06/05/2024 Comments Unknown Sex and Gender Information Value Date Recorded Sex Assigned at Female 06/07/2022 10:14 AM EDT Legal Sex Female 10:14 AM EDT Gender Identity Female 06/07/2022 10:14 AM EDT Sexual Orientation Straight 06/07/2022 10 :14 AM EDT documented as of this encounter Miscellaneous Notes * Telephone Encounter - Joann Leone - 08/06/2024 10:14 AM EST Tc from pt requesting status of Oxycodone documented in this encounter Plan of Treatment Upcoming Encounters Date Type Department Care Team ([facility] st Contact Info) Description 10/18/2024 11:00 AM EDT Clinical Support [facility] CHC MED & PEDS [address] [place] [address] Altagracia Mancilla, GRACIELA [address] [place] [address] 01/31/2025 10:00 AM EDT Office Visit [facility] ADULT DENTAL [address] [place] [address] Zhanna Hernandez documented as of this encounter [...] documented as of this encounter Care Teams Vacuum Drier Tender Relationship Specialty Start Date End Date Aaron Pisano MD [address] [place] [address] PCP - General Internal Medicine 05/10/14 Antonietta Lim Extension SupervisorRail Car Maintenance Mechanic 09/18/24 documented as of this encounter
--- OUTSIDE RECORDS SUMMARY | 2024-09-28 16:40 | XMS_ITS | Encounter Summary ---
Demographics Address [address] [place] [address] [address] [place] [address] Work Phone Home Phone Mobile Phone Email Address Preferred Language en Marital Status Single Druze Affiliation Unknown Race White Ethnic Group or Author Organization [employer] Address [address] [facility] 7t [place] [address] Care Team Providers Care Job Site Superintendent Name Role Phone Aaron Pisano MD Primary Care Provide r Reason for Visit * Reason Comments Med Refill Encounter Details Date Type Department Care Team ([facility] st Contact Info) Description 07/04/2023 Refill [facility] CHC MED & PEDS [address] [place], [place] [id number] Sumi Vang, ANP [address] [place] [address] Social History Tobacco Use Types Packs/Day Years Used Date Smoking Tobacco: Former Cigarettes Passive Smoke Exposure: Never Smokeless Tobacco: Never Alcohol Use Standard Drinks/Week Comments Never 0 (1 standard drink = 0.6 oz pur e alcohol) Housing Stability Answer Date Recorded What is your housing situation today? I do not have housing (Staying with others, in a hotel, in a alf, living outside on the street, on a [...] Description 10/18/2024 11:00 AM EDT Clinical Support [facility] MED & PEDS [address] [place] [address] Altagracia Mancilla, RN [address] [place] [address] 01/31/2025 10:00 AM EDT Office Visit [facility] ADULT DENTAL [address] [place] [address] Zhanna Hernandez documented as of this encounter Goals Goal Patient Goal Type Associated Problems Recent Progress Patient-Stated? Author Blood Pressure < 140/90 Blood Pressure 118/64( 025 2:32 PM EST) No Giovanna Banks, SohamD documented as of this encounter Visit Diagnoses Not on filedocumented in this encounter Care Teams Job Site Superintendent Relationship Specialty Start Date End Date Aaron Pisano MD [address] [place] [address] PCP - General Internal Medicine 05/10/14 Antonietta Lim Rand CementerResource Program Teacher 09/18/24 documented as of this encounter
--- OUTSIDE RECORDS SUMMARY | 2024-09-28 16:40 | XMS_ITS | Encounter Summary ---
Demographics Address [address] [place] [address] [address] [place] [address] Work Phone Home Phone Mobile Phone Email Address Preferred Language en Marital Status Single Congregational Affiliation Unknown Race White Ethnic Group or Author Organization [email or web address] Address [address] [place] [address] [address] [place] [address] Care Team Providers Care Hyperbaric Nurse Name Role Phone Aaron Pisano MD Primary Care Provide r Reason for Visit * Reason Onset Date Comments Med Refill 04/04/2023 Encounter Details Date Type Department Care Team ([facility] st Contact Info) Description 04/04/2023 Telephone [facility] MEDICINE [address] [place] [address] Aaron Pisano MD [address] [place] [address] Med Refill Social History Tobacco Use Types [...] encounter Miscellaneous Notes * Telephone Encounter - Jennifer Biggs - 04/04/2023 11:48 AM EDT Tc from patient requesting a med refill on medication oxyCODONE (Roxicodone) 5 MG immediate releasetablet. PCP Dr. De Jesus documented in this encounter Plan of Treatment Upcoming Encounters Date Type Department Care Team (Late st Contact Info) Description 10/18/2024 11:00 AM EDT Clinical Support [facility] CHC MED & PEDS [address] [place] [address] Altagracia Mancilla, RN [address] [place] [address] 01/31/2025 10:00 AM EDT Office Visit [facility] ADULT DENTAL [address] [place] [address] Zhanna Hernandez documented as of this encounter Goals Goal Patient Goal Type Associated Problems Recent Progress Patient-Stated? Author Blood Pressure < 140/90 Blood Pressure 118/64( 025 2:32 PM EST) No Giovanna Banks, PharmD documented as of this encounter Visit Diagnoses Not on filedocumented in this encounter Care Teams Hyperbaric Nurse Relationship Specialty Start Date End Date Aaron Pisano MD [address] [place] [address] PCP - General Internal Medicine 05/10/14 Antonietta Lim Customer Service Security OfficerOracle Ebs Developer 09/18/24 documented as of this encounter
--- OUTSIDE RECORDS SUMMARY | 2024-09-28 16:40 | XMS_ITS | Encounter Summary ---
Demographics Address [address] [place] [address] [address] [place] [address] Work Phone Home Phone Mobile Phone Email Address Preferred Language en Marital Status Single Buddhist Affiliation Unknown Race White Ethnic Group or Author Organization [employer] Address [address] [place] [address] [address]t [place] [address] Care Team Providers Care Retail Wireless Sales Consultant Name Role Phone Aaron Pisano MD Primary Care Provide r Reason for Visit * Reason Onset Date Comments Med Refill 04/26/2023 Encounter Details Date Type Department Care Team ([facility] st Contact Info) Description 04/26/2023 Telephone [facility] MEDICINE [address] [place] [address] Aaron Pisano MD [address] [place] [address] Med Refill Social History Tobacco Use Types [...] encounter Miscellaneous Notes * Telephone Encounter - Praful Worrell - 04/26/2023 1:06 PM EDT Tc from pt requesting a refill for oxyCODONE (Roxicodone) 5 MG immediate release tablet documented in this encounter Plan of Treatment Upcoming Encounters Date Type Department Care Team (Late st Contact Info) Description 10/18/2024 11:00 AM EDT Clinical Support [facility] CHC MED & PEDS [address] [place] [address] Altagracia Mancilla, GRACIELA [address] [place] [address] 01/31/2025 10:00 AM EDT Office Visit [facility] ADULT DENTAL [address] [place] [address] Zhanna Hernandez documented as of this encounter Goals Goal Patient Goal Type Associated Problems Recent Progress Patient-Stated? Author Blood Pressure < 140/90 Blood Pressure 118/64( 025 2:32 PM EST) No Giovanna Banks, SohamD documented as of this encounter Visit Diagnoses Not on filedocumented in this encounter Care Teams Retail Wireless Sales Consultant Relationship Specialty Start Date End Date Aaron Pisano MD [address] [place] [address] PCP - General Internal Medicine 05/10/14 documented as of this encounter
--- OUTSIDE RECORDS SUMMARY | 2024-09-28 16:40 | XMS_ITS | Encounter Summary ---
Demographics Address [address] [place] [address] [address] KEV HINES [address] Work Phone Home Phone Mobile Phone Email Address Preferred Language en Marital Status Single Rastafari Affiliation Unknown Race White Ethnic Group or Author Organization [employer] Address [address] [place] [address] Care Team Providers Care Director Of Consulting Services Name Role Phone Aaron Pisano MD Primary Care Provide r Encounter Details Date Type Department Care Team (Latest Contact Info) Description 09/06/2024 Travel Social History Tobacco Use Types Packs/Day Years [...] Description 10/18/2024 11:00 AM EDT Clinical Support [facility] CHC MED & PEDS [address] [place] [address] Altagracia Mancilla, GRACIELA 505 [place] [address] 01/31/2025 10:00 AM EDT Office Visit [facility] ADULT DENTAL [address] [place] [address] Zhanna Hernandez documented as of this encounter [...] documented as of this encounter Care Teams Director Of Consulting Services Relationship Specialty Start Date End Date Aaron Pisano MD [address] [place] [address] PCP - General Internal Medicine 05/10/14 documented as of this encounter
--- OUTSIDE RECORDS SUMMARY | 2024-09-28 16:40 | XMS_ITS | Encounter Summary ---
Demographics Address [address] [place] [address] [address] [place] [address] Work Phone Home Phone Mobile Phone Email Address Preferred Language en Marital Status Single Quaker Affiliation Unknown Race White Ethnic Group or Author Organization [employer] Address [address] [facility] 7t [place] [address] Care Team Providers Care Roofer Metal Name Role Phone Aaron Pisano MD Primary Care Provide r Reason for Visit * Reason Comments Med Refill Encounter Details Date Type Department Care Team ([facility] st Contact Info) Description 09/11/2024 Refill [facility] CHC MED & PEDS [address] [place], [place] [phone] Aaron Pisano MD [address] [place] [address] Social History Tobacco Use Types Packs/Day Years [...] Description 10/18/2024 11:00 AM EDT Clinical Support [facility] CHC MED & PEDS [address] [place] [address] Altagracia Mancilla, RN 505 [place] [address] 01/31/2025 10:00 AM EDT Office Visit [facility] ADULT DENTAL [address] [place] [address] Zhanna Hernandez documented as of this encounter [...] documented as of this encounter Care Teams Roofer Metal Relationship Specialty Start Date End Date Aaron Pisano MD [address] [place] [address] PCP - General Internal Medicine 05/10/14 documented as of this encounter
--- OUTSIDE RECORDS SUMMARY | 2024-09-28 16:40 | XMS_ITS | Encounter Summary ---
Demographics Address [address] [place] [address] [address] [place] [address] Work Phone Home Phone Mobile Phone Email Address Preferred Language en Marital Status Single Christian Affiliation Unknown Race White Ethnic Group or Author Organization [employer] Address [address] [facility] 7t [place] [address] Care Team Providers Care Veneer Supervisor Name Role Phone Aaron Pisano MD Primary Care Provide r Reason for Visit * Reason Comments Med Refill Encounter Details Date Type Department Care Team ([facility] st Contact Info) Description 07/07/2023 Refill [facility] MEDICINE [address] [place], [place] [phone] Aaron Pisano MD [address] [place], [place] [phone] Social History Tobacco Use Types Packs/Day Years Used Date Smoking Tobacco: Former Cigarettes Passive Smoke Exposure: Never Smokeless Tobacco: Never Alcohol Use Standard Drinks/Week Comments Never 0 (1 standard drink = 0.6 oz pur e alcohol) Housing Stability Answer Date Recorded What is your housing situation today? I do not have housing (Staying with others, in a hotel, in a nursing home, living outside on the street, on a [...] Description 10/18/2024 11:00 AM EDT Clinical Support [facility] MED & PEDS [address] [place] [address] Altagracia Mancilla, RN 505 [place] [address] 01/31/2025 10:00 AM EDT Office Visit [facility] ADULT DENTAL [address] [place] [address] Zhanna Hernandez documented as of this encounter Goals Goal Patient Goal Type Associated Problems Recent Progress Patient-Stated? Author Blood Pressure < 140/90 Blood Pressure 118/64( 025 2:32 PM EST) No Giovanna Banks, SohamD documented as of this encounter Visit Diagnoses Not on filedocumented in this encounter Care Teams Veneer Supervisor Relationship Specialty Start Date End Date Araon Pisano MD [address] [place] [address] PCP - General Internal Medicine 05/10/14 Antonietta Lim Change Management FacilitatorFoot Orthopedist 09/18/24 documented as of this encounter
--- OUTSIDE RECORDS SUMMARY | 2024-09-28 16:40 | XMS_ITS | Encounter Summary ---
Demographics Address [address] [place] [address] [address] [place] [address] Work Phone Home Phone Mobile Phone Email Address Preferred Language en Marital Status Single Denominational Affiliation Unknown Race White Ethnic Group or Author Organization [email or web address] Address [address] [place] [address] 7t [place] [address] Care Team Providers Care Community Service Officer Name Role Phone Aaron Pisano MD Primary Care Provide r Reason for Visit * Reason Onset Date Comments Med Refill 08/12/2024 Encounter Details Date Type Department Care Team ([facility] st Contact Info) Description 08/12/2024 Refill [facility] MEDICINE [address] [place] [address] Aaron Pisano MD [address] [place] [address] Social History Tobacco Use Types Packs/Day Years [...] the past 12 months, has t he [employer], gas, oil or water company threatened to [...] Description 10/18/2024 11:00 AM EDT Clinical Support [facility] CHC MED & PEDS [address] [place] [address] Altagracia Mancilla, GRACIELA [address] [place] [address] 01/31/2025 10:00 AM EDT Office Visit [facility] ADULT DENTAL [address] [place] [address] Zhanna Hernandez documented as of this encounter [...] documented as of this encounter Care Teams Community Service Officer Relationship Specialty Start Date End Date Aaron Pisano MD [address] [place] [address] PCP - General Internal Medicine 05/10/14 Antonietta Lim Air Chief MarshalOwner Spa Director 09/18/24 documented as of this encounter
--- OUTSIDE RECORDS SUMMARY | 2024-09-28 16:40 | XMS_ITS | Encounter Summary ---
Demographics Address [address] [place] [address] [address] [place] [address] Work Phone Home Phone Mobile Phone Email Address Preferred Language en Marital Status Single Druze Affiliation Unknown Race White Ethnic Group or Author Organization [employer] Address [address] [place] [address] [address]t [place] [address] Care Team Providers Care Water Quality Specialist Name Role Phone Aaron Pisano MD Primary Care Provide r Reason for Visit * Reason Onset Date Comments Med Refill 11/16/2022 Encounter Details Date Type Department Care Team ([facility] st Contact Info) Description 11/16/2022 Telephone [facility] MEDICINE [address] [place] [address] Aaron Pisano MD [address] [place] [address] Med Refill Social History Tobacco Use Types [...] encounter Miscellaneous Notes * Telephone Encounter - Natasha Jain - 11/16/2022 1:31 PM EDT Tc from pt requesting for script of oxyCODONE (Roxicodone) 5 MG immediate release tablet Please sent to [facility] - [place], [place] - [address] [facility] documented in this encounter Plan of Treatment Upcoming Encounters Date Type Department Care Team (Late st Contact Info) Description 10/18/2024 11:00 AM EDT Clinical Support [facility] MED & PEDS [address] [place] [address] Altagracia Mancilla, GRACIELA [address] [place] [address] 01/31/2025 10:00 AM EDT Office Visit [facility] ADULT DENTAL [address] [place] [address] Zhanna Hernandez documented as of this encounter Visit Diagnoses Not on filedocumented in this encounter Care Teams Water Quality Specialist Relationship Specialty Start Date End Date Aaron Pisano MD [address] [place] [address] PCP - General Internal Medicine 05/10/14 Antonietta Lim Tombstone PolisherIt Administrator 09/18/24 documented as of this encounter
--- OUTSIDE RECORDS SUMMARY | 2024-09-28 16:40 | XMS_ITS | Encounter Summary ---
Demographics Address [address] [place] [address] [address] [place] [address] Work Phone Home Phone Mobile Phone Email Address Preferred Language en Marital Status Single Hindu Affiliation Unknown Race White Ethnic Group or Author Organization [employer] Address [address] [place] [address] [address]t [place] [address] Care Team Providers Care Welding Machine Operator Plasma Arc Name Role Phone Aaron Pisano MD Primary Care Provide r Reason for Visit * Reason Onset Date Comments Reschedule 03/01/2024 Encounter Details Date Type Department Care Team ([facility] Contact Info) Description 03/01/2024 Telephone [facility] MEDICINE [address] [place] [address] Aaron Pisano MD [address] [place] [address] Reschedule Social History Tobacco Use Types Packs/Day Years [...] housing situation today? I have ella cheryl 08/15/[address] you li [...] encounter Miscellaneous Notes * Telephone Encounter - Lorna Greco - 03/01/2024 1:14 PM EDT Tc from pt requesting a call back in order to r/s AIRPORT OPERATIONS SUPERVISOR appt documented in this encounter Plan of Treatment Upcoming Encounters Date Type Department Care Team (Late st Contact Info) Description 10/18/2024 11:00 AM EDT Clinical Support [facility] CHC MED & PEDS [address] [place] [address] Altagracia Mancilla, RN [address] [place] [address] 01/31/2025 10:00 AM EDT Office Visit [facility] ADULT DENTAL [address] [place] [address] Zhanna Hernandez documented as of this encounter [...] documented as of this encounter Care Teams Welding Machine Operator Plasma Arc Relationship Specialty Start Date End Date Aaron Pisano MD [address] [place] [address] PCP - General Internal Medicine 05/10/14 Antonietta Lim Shotgun Shell Assembly Machine OperatorFederal Mediation Commissioner 09/18/24 documented as of this encounter
--- OUTSIDE RECORDS SUMMARY | 2024-09-28 16:40 | XMS_ITS | Encounter Summary ---
Demographics Address [address] [place] [address] [address] [place] [address] Work Phone Home Phone Mobile Phone Email Address Preferred Language en Marital Status Single Latter-Day Affiliation Unknown Race White Ethnic Group or Author Organization [employer] Address [address] [place] [address] [address]t [place] [address] Care Team Providers Care Lvn Name Role Phone Aaron Pisano MD Primary Care Provide r Reason for Visit * Reason Onset Date Comments Med Refill 09/10/2024 Encounter Details Date Type Department Care Team ([facility] st Contact Info) Description 09/10/2024 Refill [facility] MEDICINE [address] [place] [address] Aaron Pisano MD [address] [place] [address] Diarrhea in adult patient Social History Tobacco Use Types Packs/Day Years [...] 11:00 AM EDT Clinical Support [facility] CHC MED & PEDS [address] [place] [address] Altagracia Mancilla, GRACIELA [address] [place] [address] 01/31/2025 10:00 AM EDT Office Visit [facility] ADULT DENTAL [address] [place] [address] Zhanna Hernandez documented as of this encounter Goals Goal Patient Goal Type Associated Problems Recent Progress Patient-Stated? Author Blood Pressure < 140/90 Blood Pressure 118/64( 025 2:32 PM EST) No Giovanna Banks PharmD documented as of this encounter Visit Diagnoses Diagnosis Diarrhea in adult patient documented in this encounter Additional Health Concerns Assessment Noted Time PHQ-9 Depression Total Score: 2 06/05/20 24 8:38 AM EDT documented as of this encounter Care Teams Lvn Relationship Specialty Start Date End Date Aaron Pisano MD [address] [place] [address] PCP - General Internal Medicine 05/10/14 documented as of this encounter
--- OUTSIDE RECORDS SUMMARY | 2024-09-28 16:40 | XMS_ITS | Encounter Summary ---
Demographics Address [address] [place] [address] [address] [place] [address] Work Phone Home Phone Mobile Phone Email Address Preferred Language en Marital Status Single Anabaptism Affiliation Unknown Race White Ethnic Group or Author Organization [employer] Address [address] [place] [address] 7t [place] [address] Care Team Providers Care Molder Pipe Covering Name Role Phone Aaron Pisano MD Primary Care Provide r Reason for Visit * Reason Onset Date Comments Nurse Triage 02/21/2023 Encounter Details Date Type Department Care Team ([facility] st Contact Info) Description 02/21/2023 Telephone [facility] MEDICINE [address] [place] [address] Aaron Pisano MD [address] [place] [address] Nurse Triage Social History Tobacco Use Types [...] encounter Miscellaneous Notes * Telephone Encounter - Leora Campbell RN - 02/21/2023 4:45 PM EDT Please assist with obtaining [facility] ED discharge notes for 02/10/23. This consumer loan underwriter does not have [employer] access. Pt sent to ER after visit with [facility]. * Telephone Encounter - Leora Campbell RN - 02/21/2023 4:39 PM EDT Call to Zee Villanueva , reports having vomiting since seen at [facility] ER. Per pt was given abx for UTI and zofran. Per pt completed abx. Per pt continues to have vomiting. 5 episodes of vomiting in last 24 hours. No blood or green bile in vomit. Pt still taking chantix. Pt offered WIC tomorrow. Pt declines needs appt 3 days out for PT1. Agrees to visit with [facility] team provider. Reviewed home care advise and reasons to call back. Future Appointments Date Time Provider Department Center 02/25/2023 9:30 AM DUY Taveras MEDICINE [facility] 03/21/2023 1:00 PM Giovanna Payne PharmD MEDICINE [facility] 04/27/2023 3:00 PM Aniya Anderson RN MEDICINE [facility] Multiple (2) protocols were used on this call. Disposition for Call: See in Office or Video Visit within 3 Days Protocol Used: Recent Medical Visit for Illness Follow-up Call (Adult) Protocol-Based Disposition: See in Office or Video Visit Today or Tomorrow Override (Final) Disposition: See in Office or Video Visit within 3 Days Override Reason: Other Override Notes: Needs 3 day in advance for PT1 Video visit offer not recorded Positive Triage Question: * Patient wants to be seen * All higher-acuity triage questions were negative Care Advice Discussed: * Continue Treatment * Reasons To Call Back - You become worse Protocol Used: Vomiting (Adult) Protocol-Based Disposition: Home Care Positive Triage Question: * Vomiting * All higher-acuity triage questions were negative Care Advice Discussed: * Reassurance and Education - Mild to Moderate Vomiting * Clear Liquids * Solid Food * Reasons To Call Back - Vomiting lasts for more than 2 days (48 hours) - Signs of dehydration occur - You become worse * Telephone Encounter - Natasha Michael Jain - 02/21/2023 4:33 PM EDT Symptom: Vomiting Outcome: Schedule an urgent appointment (within 4 hours) or talk to a nurse or provider soon Reason: Vomited at least once in the past 8 hours The caller accepted this outcome Please contact pt at [phone] Pt was at [facility] hospital on 02/10/2023 for same symptoms. documented in this encounter Plan of Treatment Upcoming Encounters Date Type Department Care Team (Late st Contact Info) Description 10/18/2024 11:00 AM EDT Clinical Support [facility] CHC MED & PEDS [address] [place] [address] Altagracia Mancilla, GRACIELA [address] [place] [address] 01/31/2025 10:00 AM EDT Office Visit [facility] ADULT DENTAL [address] [place] [address] Zhanna Hernandez documented as of this encounter Visit Diagnoses Not on filedocumented in this encounter Care Teams Molder Pipe Covering Relationship Specialty Start Date End Date Aaron Pisano MD [address] [place] [address] PCP - General Internal Medicine 05/10/14 Antonietta Lim Medical Cost ConsultantChef Manager 09/18/24 documented as of this encounter
--- OUTSIDE RECORDS SUMMARY | 2024-09-28 16:40 | XMS_ITS | Encounter Summary ---
Demographics Address [address] [place] [address] [address] [place] [address] Work Phone Home Phone Mobile Phone Email Address Preferred Language en Marital Status Single Alevism Affiliation Unknown Race White Ethnic Group or Author Organization [employer] Address [address] [place] [address] [address] [place] [address] Care Team Providers Care Rotary Operator Name Role Phone Aaron Pisano MD Primary Care Provide r Reason for Visit * Reason Comments Med Refill Encounter Details Date Type Department Care Team ([facility] st Contact Info) Description 10/06/2023 Refill [facility] MEDICINE [address] [place], [place] [phone] Aaron Pisano MD [address] [place], [place] [phone] Chronic midline low back pain without sciatica [...] Description 10/18/2024 11:00 AM EDT Clinical Support [facility] CHC MED & PEDS [address] [place] [address] Altagracia Mancilla RN [address] [place] [address] 01/31/2025 10:00 AM EDT Office Visit [facility] ADULT DENTAL [address] [place] [address] Zhanna Hernandez documented as of this encounter [...] documented as of this encounter Care Teams Rotary Operator Relationship Specialty Start Date End Date Aaron Pisano MD [address] [place] [address] PCP - General Internal Medicine 05/10/14 Antonietta Lim Senior Product AnalystLaundry Routeman 09/18/24 documented as of this encounter
--- OUTSIDE RECORDS SUMMARY | 2024-09-28 16:40 | XMS_ITS | Encounter Summary ---
Demographics Address [address] [place] [address] [address] [place] [address] Work Phone Home Phone Mobile Phone Email Address Preferred Language en Marital Status Single Sikhism Affiliation Unknown Race White Ethnic Group or Author Organization [employer] Address [address] [facility] 7t [place] [address] Care Team Providers Care Grocery Bagger Name Role Phone Aaron Pisano MD Primary Care Provide r Reason for Visit * Reason Comments Annual Exam Pt had what seems to be a cyst on her right breast, that ended up popping about a week ago. A lot of pain and discomfort when she first noticed it, after it popped pus and blood both came out. Hypertension Encounter Details Date Type Department Care Team (Late st Contact Info) Description 09/06/2024 2:30 PM EST Office Visit [facility] MEDICINE [address] [place], [place] [phone] Aaron Pisano MD [address] [place], [place] [phone] Routine physical examination (Primary Dx); Routine health maintenance; Positive LUCRETIA (antinuclear antibody); Mild intermittent asthma without complication; Chronic midline low back pain without sciatica; Breast cyst, right Social History Tobacco Use Types Packs/Day Years Used Date Smoking Tobacco: Former Cigarettes Passive Smoke Exposure: Past Smokeless Tobacco: Never Tobacco Cessation:Counseling Given: Not Answered Comments:Abl=out 5 years since she quit Alcohol Use Standard Drinks/Week Comments [...] AM EDT documented as of this encounter Last Filed Vital Signs Vital Sign Reading Time Taken Comments Blood Pressure 118/64 09/06/2024 2:32 PM EST Pulse 90 09/06/2024 2:32 PM EST Temperature 36.5 ??C (97.7 ??F) 09/06/2024 2:32 PM ES T Respiratory Rate 20 09/06/2024 2:32 PM EST Oxygen Saturation 98% 09/06/2024 2:32 PM EST Inhaled Oxygen Concentration - - Weight 89.2 kg (196 lb 9.6 oz) 09/06/2024 2:32 P M EST Height 149.9 cm (4' 11 ) 09/06/2024 2:32 PM EST Body Mass Index 39.71 09/06/2024 2:32 PM EST documented in this encounter Progress Notes * Aaron Harris MD - 09/06/2024 2:30 PM EST SUBJECTIVE Zee Villanueva is a 49 y.o. female who presents for Annual Exam (Pt had what seems to be a cyst on her right breast, that ended up popping about a week ago. A lot of pain and discomfort when she first noticed it, after it popped pus and blood both came out.) and Hypertension. Hypertension Pertinent negatives include no chest pain, headaches, palpitations or shortness of breath. Review of Systems Constitutional: Negative for appetite change, fatigue and fever. HENT: Negative for ear pain, hearing loss and sore throat. Eyes: Negative for pain and visual disturbance. Respiratory: Negative for cough and shortness of breath. Cardiovascular: Negative for chest pain and palpitations. Gastrointestinal: Negative for abdominal pain, nausea and vomiting. Genitourinary: Negative for dysuria. Skin: Negative for rash. Neurological: Negative for dizziness and headaches. Psychiatric/Behavioral: Negative for sleep disturbance. Allergies Allergen Reactions Albuterol Other reaction(s): Swollen Tonsils Nsaids Anaphylaxis Other reaction(s): unspecified Aspirin Other reaction(s): swelling of throat Cranberry Swelling Cranberry Extract Doxycycline Ibuprofen Naproxen Penicillin G Tramadol Buspirone Rash Lamotrigine Unknown Methotrexate Rash Other reaction(s): rash OBJECTIVE Vitals: 09/06/24 1432 BP: 118/64 BP Location: Left arm Patient Position: Sitting BP Cuff Size: Adult Pulse: 90 Resp: 20 Temp: 97.7 ??F (36.5 ??C) TempSrc: Temporal SpO2: 98% Weight: 196 lb 9.6 oz (89.2 kg) Height: 4' 11 (1.499 m) Physical Exam Vitals reviewed. Constitutional: General: She is awake. Appearance: Normal appearance. She is well-developed. HENT: Head: Normocephalic and atraumatic. Right Ear: Tympanic membrane, ear canal and external ear normal. Left Ear: Tympanic membrane, ear canal and external ear normal. Nose: Nose normal. Mouth/Throat: Mouth: Mucous membranes are moist. Pharynx: Oropharynx is clear. Eyes: Extraocular Movements: Extraocular movements intact. Conjunctiva/sclera: Conjunctivae normal. Pupils: Pupils are equal, round, and reactive to light. Cardiovascular: Rate and Rhythm: Normal rate and regular rhythm. Pulses: Normal pulses. Heart sounds: Normal heart sounds. Pulmonary: Effort: Pulmonary effort is normal. Breath sounds: Normal breath sounds. Chest: Breasts: Right: Normal. No swelling, bleeding, inverted nipple, mass or nipple discharge. Left: Normal. No swelling, bleeding, inverted nipple, mass or nipple discharge. Abdominal: General: Bowel sounds are normal. Palpations: Abdomen is soft. Musculoskeletal: General: Normal range of motion. Cervical back: Normal range of motion and neck supple. Lymphadenopathy: Upper Body: Right upper body: No supraclavicular or axillary adenopathy. Left upper body: No supraclavicular or axillary adenopathy. Skin: General: Skin is warm. Capillary Refill: Capillary refill takes less than 2 seconds. Neurological: General: No focal deficit present. Mental Status: She is alert and oriented to person, place, and time. Deep Tendon Reflexes: Reflexes are normal and symmetric. Psychiatric: Mood and Affect: Mood normal. Assessment/Plan Problem List Items Addressed This Visit Routine physical examination - Primary Patient here for a routine physical exam, within normal limits Routine health maintenance Mammogram: 01/26/2024 negative Pap Smear: NL: 08/31/2002 s/p SHANICE Colonoscopy: following with GI, last seen 08/27/2024 will discuss with them Positive LUCRETIA (antinuclear antibody) Pt with Chronic pain of both ankles, not improving despite physical the She has numerous c/o pain on multiple joints, She was last seen on 11/23/2019 in the past she was given a trial of Prednisone. They gave her a trial of Methotrexate that caused her a rash She used to be followed by Dr Newberry, but most recently [place] [facility] who recommended PRN follow up Mild intermittent asthma No recent exacerbations. Under the care of Pulmonology Dr James last seen 05/2024 On a regimen of Advair She is supposed to follow up with him Pt no longer using Pro-Air MDI.. She tells me she has a reaction to it Back pain Relevant Medications oxyCODONE (Roxicodone) 5 MG immediate release tablet Breast cyst, right Noticed it a few days back, drained on its own, on today's exam seems its healing Pt with multiple Abx allergies. Will prescribe a Z-pack Relevant Medications azithromycin (Zithromax Z-Silvano) 250 MG tablet documented in this encounter Miscellaneous Notes * Assessment & Plan Note - Aaron Harris MD - 09/06/2024 2:58 PM EST Associated Problem(s): Breast cyst, right Noticed it a few days back, drained on its own, on today's exam seems its healing Pt with multiple Abx allergies. Will prescribe a Z-pack * Assessment & Plan Note - Aaron Harris MD - 09/06/2024 2:43 PM EST Associated Problem(s): Mild intermittent asthma No recent exacerbations. Under the care of Pulmonology Dr James last seen 05/2024 On a regimen of Advair She is supposed to follow up with him Pt no longer using Pro-Air MDI.. She tells me she has a reaction to it * Assessment & Plan Note - Aaron Harris MD - 09/06/2024 2:43 PM EST Associated Problem(s): Positive LUCRETIA (antinuclear antibody) Pt with Chronic pain of both ankles, not improving despite physical the She has numerous c/o pain on multiple joints, She was last seen on 11/23/2019 in the past she was given a trial of Prednisone. They gave her a trial of Methotrexate that caused her a rash She used to be followed by Dr Newberry, but most recently seen by Dr Rodas [place] [facility]24 who recommended PRN follow up * Assessment & Plan Note - Aaron Harris MD - 09/06/2024 2:38 PM EST Associated Problem(s): Routine health maintenance Mammogram: 01/26/2024 negative Pap Smear: NL: 08/31/2002 s/p SHANICE Colonoscopy: following with GI, last seen 08/27/2024 will discuss with them * Assessment & Plan Note - Aaron Harris MD - 09/06/2024 2:35 PM EST Associated Problem(s): Routine physical examination Patient here for a routine physical exam, within normal limits documented in this encounter Plan of Treatment Upcoming Encounters Date Type Department Care Team (Late st Contact Info) Description 10/18/2024 11:00 AM EDT Clinical Support [facility] MED & PEDS [address] [place] [address] Altagracia Mancilla, GRACIELA [address] [place] [address] 01/31/2025 10:00 AM EDT Office Visit [facility] ADULT DENTAL [address] [place] [address] Zhanna Hernandez documented as of this encounter Goals Goal Patient Goal Type Associated Problems Recent Progress Patient-Stated? Author Blood Pressure < 140/90 Blood Pressure 118/64( 025 2:32 PM EST) No Giovanna Banks, SohamD documented as of this encounter Visit Diagnoses Diagnosis Routine physical examination- Primary Routine general medical examination at a health care facility Routine health maintenance Unspecified examination Positive LUCRETIA (antinuclear antibody) Other and unspecified nonspecific immunological findings Mild intermittent asthma without complication Chronic midline low back pain without sciatica Breast cyst, right documented in this encounter Additional Health Concerns Assessment Noted Time PHQ-9 Depression Total Score: 2 06/05/20 24 8:38 AM EDT documented as of this encounter Care Teams Grocery Bagger Relationship Specialty Start Date End Date Aaron Pisano MD [address] [place] [address] PCP - General Internal Medicine 05/10/14 documented as of this encounter
--- OUTSIDE RECORDS SUMMARY | 2024-09-28 16:40 | XMS_ITS | Encounter Summary ---
Demographics Address [address] [place] [address] [address] [place] [address] Work Phone Home Phone Mobile Phone Email Address Preferred Language en Marital Status Single Zoroastrianism Affiliation Unknown Race White Ethnic Group or Author Organization [employer] Address [address] [facility] 7t [place] [address] Care Team Providers Care Business Continuity Management Director Name Role Phone Aaron Pisano MD Primary Care Provide r Reason for Visit * Reason Comments Med Refill Encounter Details Date Type Department Care Team ([facility] st Contact Info) Description 09/20/2024 Refill [facility] MEDICINE [address] [place] [address] Aaron Pisano MD [address] [place], [place] [phone] Social History Tobacco Use Types Packs/Day Years [...] Description 10/18/2024 11:00 AM EDT Clinical Support [facility] CH[facility] MED & PEDS [address] [place] [address] Altagracia Mancilla, RN [address] [place] [address] 01/31/2025 10:00 AM EDT Office Visit [facility] ADULT DENTAL [address] [place] [address] Zhanna Hernandez documented as of this encounter [...] documented as of this encounter Care Teams Business Continuity Management Director Relationship Specialty Start Date End Date Aaron Pisano MD [address] [place] [address] PCP - General Internal Medicine 05/10/14 Antonietta Lim Teacher'S AideConstruction Site Crossing Guard 09/18/24 documented as of this encounter
--- OUTSIDE RECORDS SUMMARY | 2024-09-28 16:40 | XMS_ITS | Encounter Summary ---
Demographics Address [address] [place] [address] [address] [place] [address] Work Phone Home Phone Mobile Phone Email Address Preferred Language en Marital Status Single Pentecostal Affiliation Unknown Race White Ethnic Group or Author Organization [employer] Address [address] [facility] 7t [place] [address] Care Team Providers Care Director Professional Services Name Role Phone Aaron Pisano MD Primary Care Provide r Reason for Visit * Reason Onset Date Comments Med Refill 06/01/2023 Encounter Details Date Type Department Care Team (Late st Contact Info) Description 06/01/2023 Refill [facility] CHC MED & PEDS [address] [place] [address] Sumi Vang, ANP [address] [place] [address] Chronic midline low back pain without sciatica [...] with others, in a hotel, in a penitentiary, living outside on the street, on a [...] Description 10/18/2024 11:00 AM EDT Clinical Support [facility] CHC MED & PEDS [address] [place] [address] Altagracia Mancilla, GRACIELA [address] [place] [address] 01/31/2025 10:00 AM EDT Office Visit [facility] ADULT DENTAL [address] [place] [address] Zhanna Hernandez documented as of this encounter Goals Goal Patient Goal Type Associated Problems Recent Progress Patient-Stated? Author Blood Pressure < 140/90 Blood Pressure 118/64( 025 2:32 PM EST) No Giovanna Banks, PharmD documented as of this encounter Visit Diagnoses Diagnosis Chronic midline low back pain without sciatica documented in this encounter Care Teams Director Professional Services Relationship Specialty Start Date End Date Aaron Pisano MD [address] [place] [address] PCP - General Internal Medicine 05/10/14 Antonietta Lim Automotive DetailerChannel Specialist 09/18/24 documented as of this encounter
--- OUTSIDE RECORDS SUMMARY | 2024-09-28 16:40 | XMS_ITS | Encounter Summary ---
Demographics Address [address] [place] [address] [address] [place] [address] Work Phone Home Phone Mobile Phone Email Address Preferred Language en Marital Status Single Mu-Ism Affiliation Unknown Race White Ethnic Group or Author Organization [employer] Address [address] [place] [address] 7t [place] [address] Care Team Providers Care Optometric Technician Name Role Phone Aaron Pisano MD Primary Care Provide r Reason for Visit * Reason Onset Date Comments Med Refill 08/24/2022 Encounter Details Date Type Department Care Team ([facility] st Contact Info) Description 08/24/2022 Telephone [facility] MEDICINE [address] [place] [address] Aaron Pisano MD [address] [place] [address] Med Refill Social History Tobacco Use Types [...] suspected to have Coronavirus/COVID-19? No / Unsure 08/11/2022 10:45 AM EST documented as of this encounter Miscellaneous Notes * Telephone Encounter - Jenny Rosa - 08/24/2022 12:08 PM EST Tc from pt requesting med refill on medication oxycodone . documented in this encounter Plan of Treatment Upcoming Encounters Date Type Department Care Team (Late st Contact Info) Description 10/18/2024 11:00 AM EDT Clinical Support [facility] MED & PEDS [address] [place] [address] Altagracia Mancilla, GRACIELA [address] [place] [address] 01/31/2025 10:00 AM EDT Office Visit [facility] ADULT DENTAL [address] [place] [address] Zhanna Hernandez documented as of this encounter Visit Diagnoses Not on filedocumented in this encounter Care Teams Optometric Technician Relationship Specialty Start Date End Date Aaron Pisano MD [address] [place] [address] PCP - General Internal Medicine 05/10/14 Antonietta Lim Briquetter OperatorBuggy Loader 09/18/24 documented as of this encounter
--- OUTSIDE RECORDS SUMMARY | 2024-09-28 16:40 | XMS_ITS | Encounter Summary ---
Demographics Address [address] [place] [address] [address] [place] [address] Work Phone Home Phone Mobile Phone Email Address Preferred Language en Marital Status Single Catholic Affiliation Unknown Race White Ethnic Group or Author Organization [employer] Address [address] [place] [address] 7t [place] [address] Care Team Providers Care Honey Grader And Blender Name Role Phone Aaron Pisano MD Primary Care Provide r Reason for Visit * Reason Onset Date Comments Med Refill 08/12/2024 Encounter Details Date Type Department Care Team ([facility] st Contact Info) Description 08/12/2024 Refill [facility] MEDICINE [address] [place] [address] Aaron Pisano MD [address] [place] [address] Smoker Social History Tobacco Use Types Packs/Day Years [...] [facility] [address] [place] [address] Altagracia Mancilla, GRACIELA [address] [place] [address] 01/31/2025 10:00 AM EDT Office Visit [facility] ADULT DENTAL [address] [place] [address] Zhanna Hernandez documented as of this encounter Goals Goal Patient Goal Type Associated Problems Recent Progress Patient-Stated? Author Blood Pressure < 140/90 Blood Pressure 118/64( 025 2:32 PM EST) No Giovanna Banks PharmD documented as of this encounter Visit Diagnoses Diagnosis Smoker Tobacco use disorder documented in this encounter Additional Health Concerns Assessment Noted Time PHQ-9 Depression Total Score: 2 06/05/20 24 8:38 AM EDT documented as of this encounter Care Teams Honey Grader And Blender Relationship Specialty Start Date End Date Aaron Pisano MD [address] [place] [address] PCP - General Internal Medicine 05/10/14 Antonietta Lim Whirley OperatorInvestor 09/18/24 documented as of this encounter
--- OUTSIDE RECORDS SUMMARY | 2024-09-28 16:40 | XMS_ITS | Encounter Summary ---
Demographics Address [address] [place] [address] [address] [place] [address] Work Phone Home Phone Mobile Phone Email Address Preferred Language en Marital Status Single Evangelical Affiliation Unknown Race White Ethnic Group or Author Organization [employer] Address [address] [place] [address] 7 [place] [address] Care Team Providers Care Perpetual Inventory Clerk Name Role Phone Aaron Pisano MD Primary Care Provide r Reason for Visit * Reason Comments Med Refill Encounter Details Date Type Department Care Team ([facility] Contact Info) Description 03/15/2023 Refill [facility] MEDICINE [address] [place] [address] Aaron Pisano MD [address] [place] [address] Smoker Social History Tobacco Use Types Packs/Day [...] Upcoming Encounters Date Type Department Care Team ([facility] Contact Info) Description 10/18/2024 11:00 AM EDT Clinical Support [facility] CHC MED & PEDS [address] [place] [address] Altagracia Mancilla, GRACIELA [address] [place] [address] 01/31/2025 10:00 AM EDT Office Visit [facility] ADULT DENTAL [address] [place] [address] Zhanna Hernandez documented as of this encounter Visit Diagnoses Diagnosis Smoker Tobacco use disorder documented in this encounter Care Teams Perpetual Inventory Clerk Relationship Specialty Start Date End Date Aaron Pisano MD [address] [place] [address] PCP - General Internal Medicine 05/10/14 Antonietta Lim Manager FileHookman 09/18/24 documented as of this encounter
--- OUTSIDE RECORDS SUMMARY | 2024-09-28 16:41 | XMS_ITS | Clinical Summary ---
Demographics Address [address] [place] [address] [phone] [place] [phone] Work Phone Home Phone Mobile Phone Email Address Preferred Language en Marital Status Single Lutheran Affiliation Unknown Race White Ethnic Group or Author Organization [employer] Address [address] [place] [address] [address] [place] [address] Care Team Providers Care Door Patcher Name Role Phone Aaron Pisano MD Primary Care Provide r Allergies Active Allergy Reactions Criticality Noted Date Comments Albuterol High 04/15/2016 Other reaction(s): Swollen Tonsils Aspirin 10/22/2014 Other reaction(s): swelling of throat Buspirone Rash Low 02/10/2023 Cranberry Swelling 08/03/2022 Cranberry Extract 08/03/2022 Doxycycline 08/03/2022 Ibuprofen 10/22/2014 Lamotrigine Unknown Low 02/10/2023 Methotrexate Rash Low 11/28/2017 Other reaction(s): rash Naproxen 10/22/2014 Nsaids Anaphylaxis High 10/12/2010 Other reaction(s): unspecified Penicillin G 02/27/2018 Tramadol 10/22/2014 Medications montelukast (Singulair) 10 MG tablet Take 1 tablet by mouth at bed time. Active naloxone (Narcan) 4 mg/0.1 mL nasal spray Administer 0.1 mL into affected nostril(s) if needed. In one nostril may repeat dose every 2-3 minutes as needed alternating nostrils with each dose 04/08/20 22 Active Blood Pressure kit Active zolpidem CR (Ambien CR) 12.5 MG ER tablet Take 1 tablet by mouth at bedtime as needed 10/14/19 23 Active Advair Diskus 250-50 MCG/ACT aerosol powder INHALE 1 PUFF BY MOUTH TWICE DAILY 12 HOURS APART 12/03/19 23 Active Myrbetriq 25 MG 24 hr tablet Take 25 mg by mouth in the morning. 03/16/20 23 Active senna (Senokot) 8.6 MG tablet TAKE 1 TABLET BY MOUTH AT BEDTIME NEEDED FOR CONSTIPATION 03/08/20 23 Active topiramate (Topamax) 100 MG tablet Take 100 mg by mouth at bedtime. 02/10/20 24 Active Ventolin HFA 108 (90 Base) MCG/ACT inhaler INHALE 2 PUFFS BY MOUTH EVERY 4 TO 6 HOURS NEEDED FOR WHEEZING OR SHORTNESS OF BREATH 02/15/20 24 Active cholecalcifer ol (D3 Super Strength) 50 MCG (2000 UT) capsuleIndica tions:Seasona l allergies Take 1 capsule (50 mcg) by mouth in the morning. 90 capsule 1 05/03/20 24 Active cetirizine (ZyrTEC) 10 MG tabletIndicat ions:Seasonal allergies TAKE 1 TABLET BY MOUTH EVERY MORNING 90 tablet 1 06/28/20 24 Active fluticasone (Flonase) 50 MCG/ACT nasal sprayIndicati ons:Seasonal allergies INSERT 1 SPRAY IN EACH NOSTRIL TWICE DAILY 48 g 1 06/28/20 24 Active nicotine polacrilex (Nicorette) 4 MG gumIndication s:Nicotine withdrawal CHEW 1 PIECE IN MOUTH EVERY 2 HOURS NEEDED 110 each 08/13/19 25 Active varenicline (Chantix) 1 MG tabletIndicat ions:Smoker TAKE 1 TABLET BY MOUTH EVERY DAY. TAKE WITH FULL GLASS OF WATER 30 tablet 3 08/13/19 25 Active Acetaminophen Extra Strength 500 MG tablet TAKE 1 TABLET BY MOUTH EVERY 6 HOURS NEEDED FOR MILD PAIN 60 tablet 08/13/19 25 Active diphenhydrAMI NE (Laureen-Dryl) 25 MG tabletIndicat ions:Intracta ble vomiting with nausea TAKE 1 TABLET BY MOUTH THREE TIMES DAILY BEFORE MEALS NEEDED FOR NAUSEA AND VOMITING 90 tablet 1 08/16/19 25 Active baclofen (Lioresal) 10 MG tabletIndicat ions:Chronic bilateral low back pain without sciatica TAKE 1 TABLET BY MOUTH TWICE DAILY IN THE MORNING AND AT BEDTIME NEEDED FOR MUSCLE SPASMS 60 tablet 1 08/16/19 25 Active esomeprazole (NexIUM) [address] capsuleIndica tions:Cough in adult patient TAKE 1 CAPSULE BY MOUTH TWICE DAILY IN THE MORNING AND IN THE EVENING 180 capsule 08/21/19 25 Active furosemide (Lasix) 40 MG tabletIndicat ions:Primary hypertension, Vasculitis (CMS/HCC) TAKE 1 TABLET BY MOUTH EVERY MORNING 90 tablet 1 08/28/19 25 Active oxyCODONE (Roxicodone) 5 MG immediate release tabletIndicat ions:Chronic midline low back pain without sciatica Take 1 tablet (5 mg) by mouth every 12 (twelve) hours if needed for severe pain. 56 tablet 09/06/19 25 Active azithromycin (Zithromax Z-Silvano) 250 MG tabletIndicat ions:Breast cyst, right Take 2 tabs po x 1 day then 1 tab po daily x 4 days 6 tablet 09/06/19 25 Active loperamide (Anti-Diarrhe al) 2 MG tabletIndicat ions:Diarrhea in adult patient TAKE 2 TABLETS BY MOUTH TODAY THEN TAKE 1 TABLET AFTER EACH WATERY STOOL. NO MORE THAN 8 TABLETS PER 24 HOURS 7 tablet 09/11/19 25 Active ondansetron (Zofran) 4 MG tablet TAKE 1 TABLET BY MOUTH EVERY 8 HOURS NEEDED FOR NAUSEA AND VOMITING FOR UP TO 7 DAYS 20 tablet 09/11/19 25 Active valACYclovir (Valtrex) 1 g tablet TAKE 1 TABLET BY MOUTH EVERY MORNING 28 tablet 5 09/11/19 25 Active losartan (Cozaar) 25 MG tablet TAKE 1 TABLET BY MOUTH EVERY MORNING 90 tablet 1 09/20/19 25 Active valACYclovir (Valtrex) 1 g tablet TAKE 1 TABLET BY MOUTH EVERY MORNING 28 tablet 5 03/29/20 24 025 Discontinued(R eorder (will not trigger notification to Pharmacy)) losartan (Cozaar) 25 MG tablet TAKE 1 TABLET BY MOUTH EVERY MORNING 90 tablet 1 04/05/20 24 025 Discontinued loperamide (Anti-Diarrhe al) 2 MG tabletIndicat ions:Diarrhea in adult patient TAKE 2 TABLETS BY MOUTH TODAY THEN TAKE 1 TABLET AFTER EACH WATERY STOOL. NO MORE THAN 8 TABLETS PER 24 HOURS 7 tablet 07/17/20 24 025 Discontinued(R eorder (will not trigger notification to Pharmacy)) ondansetron (Zofran) 4 MG tablet TAKE 1 TABLET BY MOUTH EVERY 8 HOURS NEEDED FOR NAUSEA AND VOMITING FOR UP TO 7 DAYS 20 tablet 07/24/20 24 02/03/2 025 Discontinued(R eorder (will not trigger notification to Pharmacy)) oxyCODONE (Roxicodone) 5 MG immediate release tabletIndicat ions:Chronic midline low back pain without sciatica TAKE 1 TABLET BY MOUTH EVERY TWELVE HOURS NEEDED FOR SEVERE PAIN 56 tablet 08/07/20 24 025 Discontinued(R eorder (will not trigger notification to Pharmacy)) Active Problems Problem Noted Date Diagnosed Date Breast cyst, right 09/06/2024 Assessment & Plan (09/06/2024 3:02 PM EST): Noticed it a few days back, drained on its own, on today's exam seems its healing Pt with multiple Abx allergies. Will prescribe a Z-pack Abfraction 08/21/2024 Diarrhea 06/05/2024 Assessment & Plan (06/05/2024 9:15 AM EDT): Patient with c/o intermittent diarrhea, associated with nausea and ocasional vomiting. Pt denies any fever, no abdominal pain. Describes de diarrhea as semi formed and sometimes watery. I wanted to order Annie Cx, O and P and C. Diff. Pt declined , she stated she does not want to do that. Recommendations are to increase PO fluids and remain hydrated. I also referred her to GI Pt agreeable with plan If symptoms were to get worse she knows to call back or present herself to the nearest ER Acute cough 01/05/2024 Assessment & Plan (01/05/2024 2:59 PM EDT): Pt here with c/o dry cough x 1 week, No fever , No sob, on exam lungs are clear. I suspect her dry cough is a result of post nasal drip. Plan: Continue antihistaminics, add Flonase Plain chest x-ray Acute frontal sinusitis 01/05/2024 Assessment & Plan (01/05/2024 3:01 PM EDT): Pt here with c/o pain on her frontal sinuses associated with purulent nasal discharge On exam there is tenderness to palpation Supportive measures Rx Augmentin, asked to call or come back if symptoms do not improve or worsen Seasonal allergies 01/05/2024 Routine physical examination 08/23/2023 Assessment & Plan (09/06/2024 2:35 PM EST): Patient here for a routine physical exam, within normal limits Assessment & Plan (08/23/2023 2:07 PM EST): Patient here for a routine physical exam, within normal limits Nicotine withdrawal 03/23/2023 Assessment & Plan (08/23/2023 2:05 PM EST): Has persistentl cravings. Stopped smoking marihuana Use nicotine gum prn, Has been using chantix and wants to continue at a once a day dosing, has discussed with her therapist and they are in agreement to continue, pt well aware that Chantix can exacerbate depression and suicidal thoughts, pt knows to stop chantix immediately if that is the case Assessment & Plan (03/23/2023 12:14 PM EDT): Quit 3w ago, has occasional craving. nausea could be Exacerbated by nicotine withdrawal. Use nicotine gum prn, continue chantix Allergic rhinitis 03/22/2023 Back pain 03/22/2023 Assessment & Plan (01/05/2024 3:01 PM EDT): Refills of her medications given Chest pain 03/22/2023 Obesity (BMI 30-39.9) 03/22/2023 Primary osteoarthritis of left knee 03/22/2023 Sinusitis 03/22/2023 Somnolence, daytime 03/22/2023 Varicose veins of left lower extremity with infl ammation 03/22/2023 Vitamin D deficiency 03/22/2023 Partial edentulism 01/20/2023 Dental plaque 11/30/2022 Gingival bleeding 11/30/2022 Dental caries 11/30/2022 Mild chronic anemia 08/03/2022 Assessment & Plan (08/03/2022 9:12 AM EST): Pt with mild Iron deficiency anemia. unclear etiology. Evaluated by Hematology 03/18/2022 recommended to start Iron and Vitamin C and to consider start Colorectal screen at [address] Hong Bilateral lower extremity edema 08/03/2022 Assessment & Plan (08/03/2022 9:14 AM EST): On Lasix 40 mg po daily Evaluated by Dr Zac barth (vascular) recommended comrpessive stockings Primary hypertension 08/03/2022 Assessment & Plan (01/05/2024 3:00 PM EDT): Patient here for a f/u BP controlled on a regimen of: Losartan 50 mg po daily Given adequate blood pressure control will continue with current medical regimen. Most recent electrolytes, Bun and Creatinine done on: 03/08/2023 were within normal limits. patient advised to adhere to a low sodium diet, encouraged about medication compliance, counseled about weight loss. Assessment & Plan (08/23/2023 1:50 PM EST): Patient here for a f/u BP controlled on a regimen of: Losartan 50 mg po daily Given adequate blood pressure control will continue with current medical regimen. Most recent electrolytes, Bun and Creatinine done on: 02/10/2023 were within normal limits. patient advised to adhere to a low sodium diet, encouraged about medication compliance, counseled about weight loss. Assessment & Plan (08/03/2022 9:15 AM EST): Patient here for a f/u BP currently controlled on a regimen of: Losartan 50 mg po daily Given adequate blood pressure control will continue with current medical regimen. Most recent electrolytes, Bun and Creatinine done on: 02/17/2022 were within normal limits. patient advised to adhere to a low sodium diet, encouraged about medication compliance, counseled about weight loss. 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 She is under the care of [facility] Newberry. She is on Prednisone 2 mg po daily, and Hydroxychloroquine She saw him last 03/30/2022. He started to taper her prednisone down and had a f/u June 29. Records requested Elevated uric acid in blood 08/03/2022 Assessment & Plan (08/03/2022 9:20 AM EST): Mild elevation 6.1 . Normal upper limit 5.7 On allopurinol 100 mg po daily Mixed stress and urge urinary incontinence 06/29 Assessment & Plan (08/03/2022 9:18 AM EST): Pt is s/p cystocele repair and sling procedure Since surgery she reports she has lost sensitivity in her urethra and continues to be incontinent of urine. She attempted to schedule a f/u appointment with Dr. Snyder however she has left the practice. She was under the care of Dr Dominique, last seen 05/07/2021 Routine health maintenance 06/29/2022 Assessment & Plan (09/06/2024 2:54 PM EST): Mammogram: 01/26/2024 negative Pap Smear: NL: 08/31/2002 s/p SHANICE Colonoscopy: following with GI, last seen 08/27/2024 will discuss with them Assessment & Plan (01/05/2024 10:50 AM EDT): Mammogram: 08/17/2022 negative Pap Smear: NL: 08/31/2002 s/p SHANICE Colonoscopy: following with GI Assessment & Plan (08/23/2023 2:08 PM EST): Mammogram: 08/17/2022 negative Pap Smear: NL: 08/31/2002 s/p SHANICE Colonoscopy: following with GI Assessment & Plan (08/03/2022 9:23 AM EST): Mammogram: 09/21/2019 Birads 2 Pap Smear: NL: 08/31/2002 s/p SHANICE Colonoscopy: Not due Bipolar affective disorder, currently depressed, moderate 10/19/2018 Assessment & Plan (08/23/2023 2:06 PM EST): Pt under the care of a psychotherapist and a psychiatrist. At [facility] Pt is no longer on Abilify nor Clonidine. She is now on Geodon Assessment & Plan (08/03/2022 9:22 AM EST): Pt under the care of a psychotherapist and a psychiatrist. At [facility] started on Abilify 7.5 mg po daily and now is on Clonidine as well Fibromyalgia 10/19/2018 Assessment & Plan (08/03/2022 9:13 AM EST): Good days and bad days Currently on Gabapentin 300 mg po TID Positive LUCRETIA (antinuclear antibody) 12/29/2017 Assessment & Plan (09/06/2024 2:43 PM EST): Pt with Chronic pain of both ankles, [...] most recently seen by Dr Rodas at [facility] 06/15/2024 who recommended PRN follow up Assessment & Plan (08/03/2022 9:19 AM EST): Pt with Chronic pain of both ankles, not improving despite physical the She has numerous c/o pain on multiple joints, She was last seen on 11/23/2019 in the past she was given a trial of Prednisone. They gave her a trial of Methotrexate that caused her a rash She is now under the care of Dr Newberry Calcaneal spur 07/29/2017 Mild intermittent asthma 05/13/2015 Assessment & Plan (09/06/2024 2:43 PM EST): No recent exacerbations. Under the care of Pulmonology Dr James last seen 05/2024 On a regimen of Advair She is supposed to follow up with him Pt no longer using Pro-Air MDI.. She tells me she has a reaction to it Assessment & Plan (08/03/2022 9:19 AM EST): No recent exacerbations. Under the care of Pulmonology Dr James last seen 04/18/2018 On a regimen of Symbicort,, Spiriva BID and Atrovent 2 puffs q 4 hrs She is supposed to follow up with him Pt no longer using Pro-Air MDI.. She tells me she has a reaction to it Previous visit I recommended repeat PFTs. Chronic low back pain 05/28/2014 Assessment & Plan (03/23/2023 12:18 PM EDT): Rx Oxycodone bid for 14d per PCP, educated patient to take it as prescribed and fu with PCP Assessment & Plan (12/30/2022 3:31 PM EDT): Pt here for a f/u Pt with acute on chronic low back pain described as intensity 8/10 radiation to both legs with associated intermittent numbness and tingling and she sometimes c/o weakness Previous MRI of her LS spine done on 06/21/2007 showed: mild degenerative disc disease and a small broad based left foraminal disc herniation along L4 and L5. Pt uses a TENS unit and Oxycodone 5 mg q6h prn. initiated by previous PCP. Pt is allergic to NSAIDS and had been taking too much Tylenol. repeat her MRI of the LS spine to r/o a radiculopathy given her c/o worsening low back pain associated with rdicular symptoms 12/11/2021 showed: Bone marrow edema /stress response within the left L5 pedicle Patient was referred to Spine surgeon for evaluation, question of conservative treatment VS other ? bracing ? Pt was evaluated by their impression was that she had Lumbar radiculitis L> R , stress reaction left L5 pedicle, and recommended Gabapentin 100 mg po TID (recently lowered the dose) Pt continues to follow with [facility] He Oxycodone dose will continue at 5 mg po BID Assessment & Plan (08/03/2022 9:22 AM EST): Pt here for a f/u Pt with acute on chronic low back pain described as intensity 8/10 radiation to both legs with associated intermittent numbness and tingling and she sometimes c/o weakness Previous MRI of her LS spine done on 06/21/2007 showed: mild degenerative disc disease and a small broad based left foraminal disc herniation along L4 and L5. Pt uses a TENS unit and Oxycodone 5 mg q6h prn. initiated by previous PCP. Pt is allergic to NSAIDS and had been taking too much Tylenol. repeat her MRI of the LS spine to r/o a radiculopathy given her c/o worsening low back pain associated with rdicular symptoms 12/11/2021 showed: Bone marrow edema /stress response within the left L5 pedicle Patient was referred to Spine surgeon for evaluation, question of conservative treatment VS other ? bracing ? Pt was seen 02/26/2022 their impression was that she had Lumbar radiculitis L> R , stress reaction left L5 pedicle, and recommended Gabapentin 300 mg po TID Severe obesity 07/12/2013 Assessment & Plan (08/23/2023 1:51 PM EST): Previously referred to [facility] Comprehensive weight management program. Seen twice, they prompter to discuss with her mental health provider her eating habits before they would consider accepting her into the program Assessment & Plan (12/30/2022 3:28 PM EDT): Previously referred to [facility] weight management program Assessment & Plan (08/03/2022 1:48 PM EST): Referred to [facility] management program Genital herpes simplex 04/27/2012 Assessment & Plan (08/03/2022 9:21 AM EST): previously there was an area of approximately 4 mm of vesicles with small ulceration highly suggestive of Genital herpes According to pt when the diagnosis was initially made she was getting > 6 episodes a year and the decision was made with previous PCP to be on suppressive therapy Pt is being treated with Valtrex Asthma 01/20/2012 Overactive bladder 01/20/2012 Polycystic ovarian syndrome 01/20/2012 Assessment & Plan (08/03/2022 9:18 AM EST): Seen in the past by an Office Administration (Dr. Dozier) Under the care of Clare Carlin The last US on record done at [facility] 01/2019 showed a hypoechoic well circumscribed solid structure in the region of the posterior vaginal cuff 1 x 1.4 x 1.3 cm unchanged in size and appearance since a prior study 10/02/2015 radiologist emntions that stability over a 3 yr period indicates benignity Resolved Problems Problem Noted Date Diagnosed Date Resolved Date History of hysterectomy for benign disease 06/21/2012 08/03/2022 Encounters Date Type Department Care Team Description 09/20/2024 Refill [facility] [address] [place] [address] Aaron Pisano MD 09/18/[address] [phone] Aaron Pisano MD Care Coordination ([facility] CP Pressure Steamer Tender ) 09/11/2024 Refill [facility] [address] [place], [place] [phone] aAron Pisano MD 09/10/2024 Refill [facility] [address] [place], [place] [phone] Aaron Pisano MD Diarrhea in adult patient 09/06/2024 2:30 PM EST Office Visit [address] [phone] Aaron Pisano MD Routine physical examination (Primary Dx); Routine health maintenance; Positive LUCRETIA (antinuclear antibody); Mild intermittent asthma without complication; Chronic midline low back pain without sciatica; Breast cyst, right 09/06/2024 Travel 08/27/2024 Orders Only GENERIC EXTERNAL DATA DEPARTMENT Provider, Generic External Data 08/24/2024 Patient Outreach [address] [address] Aaron Pisano MD Care Coordination ([facility] outreach for SDOH PT-1 and food needs-referral completed /) 08/24/[address] [phone] Aaron Pisano MD Chart Prep 08/24/2024 Patient Outreach [address] [phone] Aaron Pisano MD Pre-visit Planning (SDOH Screening posible and Tobacco screening negative) 08/23/[address] [address] Aaron Pisano MD Primary hypertension; Vasculitis (CMS/HCC) 08/21/2024 3:00 PM EST Office Visit [facility] [address] [place] [address] Miki Sarkar DDS Abfraction (Primary Dx) 08/21/2024 Refill [facility] [address] [place], [place] [address] Aaron Pisano MD Cough in adult patient 08/20/2024 Travel 08/16/2024 Refill [facility] [address] [place], [place] [address] Aaron Pisano MD Intractable vomiting with nausea; Chronic bilateral low back pain without sciatica 08/12/2024 Refill [facility] [address] [place] [address] Lucretia Wilkes MD Nicotine withdrawal; Smoker 08/12/2024 Refill [facility] [address] [place] [address] Aaron Pisano MD Smoker 08/12/2024 Refill [facility] [address] [place] [address] Aaron Pisano MD 08/02/2024 Refill [facility] [address] [place] [address] Aaron Pisano MD Chronic midline low back pain without sciatica 08/02/2024 Telephone [facility] [address] [place], [place] [address] Aaron Pisano MD Med Refill 07/26/2024 11:00 AM EST Office Visit [facility] [address] [place], [place] [address] Nati Beckman Dental calculus (Primary Dx); Dental plaque; Dental caries 07/24/2024 Telephone [facility] [address] [place], [place] [address] Aaron Pisano MD Medication Question 07/24/2024 Refill [facility] [address] [place] [address] Aaron Pisano MD 07/16/2024 10:00 AM EST Telemedicine [facility] [address] [place] [address] Altagracia Mancilla RN Chronic bilateral low back pain without sciatica 07/16/2024 Telephone [facility] [address] [place] [place] [address] Altagracia Mancilla RN 07/16/2024 Travel 07/14/2024 Refill [facility] [address] [place] [address] Katherine Mitchell MD Diarrhea in adult patient 07/09/2024 Travel 07/02/2024 Refill [facility] [address] [place] [address] Aaron Pisano MD Chronic midline low back pain without sciatica 06/28/2024 Refill [facility] [address] [place] [address] Aaron Pisano MD Seasonal allergies from Last 3 Months Immunizations Name Administration Dates Next Due Hep A / Hep B 10/12/2010,07/29/2010,04/14/2010 Hep B, adult 07/29/2010,04/14/2010 [facility] SARS-CoV-2 Vaccination 11/15/2020 MMR 01/11/1990,11/16/1978 Pneumococcal Conjugate PCV 20 03/14/2023 TD (adult), 2 Lf tetanus tox oid, preservative free, adsorbed 02/03/2021,03/16/1982 Tdap 07/29/2010 Social History Tobacco Use Types Packs/Day Years [...] Orientation Straight 06/07/2022 10 :14 AM EDT Last Filed Vital Signs Vital Sign Reading [...] Mass Index 39.71 09/06/2024 2:32 PM EST Plan of Treatment Upcoming Encounters Date Type Department Care Team ([facility] st Contact Info) Description 10/18/2024 11:00 AM EDT Clinical Support [facility] [address] [place] [address] Altagracia Mancilla, RN [address] [place] [address] 01/31/2025 10:00 AM EDT Office Visit [facility] [address] [place] [address] Zhanna Hernandez Health Maintenance Due Date Last Done Comments CT Colonography 1977 Colonoscopy 1977 Colorectal Cancer Screening 1977 FIT DNA/Cologuard 1977 FIT 1977 FOBT 1977 Sigmoidoscopy 1977 Family Planning (PISQ) 1992 Pap Smear 1998 Cervical Cancer Screening 2007 HPV/Cotest 2007 COVID-19 Vaccine ( season) 2024 11/15/2020 Influenza Vaccine (#1) 2024 Dental X-Ray: Bitewings 01/24/2025 01/24/2024, 11/30 Dental Oral Exam 01/25/2025 07/26/2024, , 11/30/2022 Dental Prophylaxis 01/25/2025 07/26/2024, 0 01/24/2024, 11/30/2022 Mammogram 01/25/2025 01/26/2024, 08/08, 09/21/2019, Additional history exists Alcohol/Substance Use Screening 06/05/2025 06/05/2024 Depression Screening 06/05/2025 06/05/2024, 06/05/20 Tobacco Screening 08/21/2025 08/21/2024 SDOH Screening 08/24/2025 08/24/2024 Dental X-Ray: Full Mouth 12/01/2025 11/30/2022 Zoster Vaccines (1 of 2) 2027 Lipid Panel 04/30/2029 04/30/2024 DTaP/Tdap/Td Vaccines (3 - Td or Tdap) 02/03/2031 02/03/2021, 07/29/2010, 03/16/1982 RSV Patients and Patients Aged 60 years or older (1 - 1-dose 75+ series) 2052 Hepatitis A Vaccines Aged Out 10/12/2010, 07/29/2010, 04/14/2010 No longer eligible based on patient's age to complete this topic Hepatitis B Vaccines Completed 10/12/2010, 07/29/2010, 07/29/2010, Additional history exists HIV Screening Completed 02/26/2020, 02/22/2020 Hepatitis C Screening Completed 03/06/2021 , 02/26/2020, 02/22/2020 Pneumococcal Vaccine: Pediatrics (0 to 5 Years) and At-Risk Patients (6 to 49) Years) Completed 03/14/2023 HIB Vaccines Aged Out No longer eligi ble based on patient's age to complete this topic HPV Vaccines Aged Out No longer eligi ble based on patient's age to complete this topic IPV Vaccines Aged Out No longer eligi ble based on patient's age to complete this topic Meningococcal Vaccine Aged Out No atul guilherme eligible based on patient's age to complete this topic RSV under 20 months Aged Out No longe r eligible based on patient's age to complete this topic Rotavirus Vaccines Aged Out No longer eligible based on patient's age to complete this topic Goals Goal Patient Goal Type Associated Problems Recent Progress Patient-Stated? Author Blood Pressure < 140/90 Blood Pressure 118/64( 025 2:32 PM EST) No Giovanna Banks PharmD Procedures Procedure Name Priority Date/Time Associated Diagnosis Comments VITAMIN D 25-OH (D2 AND D3) Routine 08/27/2024 11:30 AM EST TISSUE TRANSGLUTAMINASE AB, IGA Routine 08/27/2024 11:30 AM EST VITAMIN B12/FOLATE, SERUM PANEL Routine 08/27/2024 11:30 AM EST TSH W/REFLEX TO FT4 Routine 08/27/2024 1 1:30 AM EST LIPASE Routine 08/27/2024 11:30 AM EST C-REACTIVE PROTEIN Routine 08/27/2024 11 :30 AM EST COMPREHENSIVE METABOLIC PANEL Routine 08/27/2024 11:30 AM EST CBC Routine 08/27/2024 11:30 AM EST CASE PRESENTATION, DETAILED AND EXTENSIVE TREATMENT PLANNING Routine 08/21/2024 3:00 PM EST 2 B(V) RESIN-BASED COMPOSITE - 1 SURF, POSTERIOR Routine 08/21/2024 3:00 PM EST 15 B(V) RESIN-BASED COMPOSITE - 1 SURF, POSTERIOR Routine 08/21/2024 3:00 PM EST PERIODIC ORAL EVALUATION - ESTABLISHED PATIENT Routine 07/26/2024 11:00 AM EST INTRAORAL - PERIAPICAL EACH ADDITIONAL RADIOGRAPHIC IMAGE Routine 07/26/2024 11:00 AM EST INTRAORAL - PERIAPICAL FIRST RADIOGRAPHIC IMAGE Routine 07/26/2024 11:00 AM EST ORAL HYGIENE INSTRUCTIONS Routine 07/26/2024 11:00 AM EST Dental calculus Dental plaque CASE PRESENTATION, DETAILED AND EXTENSIVE TREATMENT PLANNING Routine 07/26/2024 11:00 AM EST PROPHYLAXIS - ADULT Routine 07/26/2024 1 1:00 AM EST Dental calculus Dental plaque LIPID PANEL, STANDARD Routine 04/30/2024 2:25 PM EDT Primary hypertension BI MAMMOGRAM SCREENING TOMOSYNTHESIS BILATERAL Routine 01/26/2024 1:45 PM EDT Screening mammogram for breast cancer BITEWINGS - 4 RADIOGRAPHIC IMAGES Routine 01/24/2024 2:00 PM EDT INTRAORAL - COMPLETE SERIES OF RADIOGRAPHIC IMAGES Routine 11/30/2022 1:00 PM EDT Dental calculus ZZZ HISTORICAL HEPATITIS PANEL, ACUTE W/REFLEX TO CONFIRMATION Routine 03/06/2021 5:09 PM EDT ZZZ HISTORICAL HIV AB/AG Routine 020 1:03 PM EDT from Last 3 Months or Most Recently Relevant to Health Maintenance Results * VITAMIN D 25-OH (D2 AND D3) (08/27/2024 11:30 AM EST) Vitamin D, 25-OH, D2 <4 ng/mL [facility] Comment:This test was develo ped and its analytical performancecharacteristics have been determined by [employer] [place]. It hasnot been cleared or approved by the .[place]. Food and DrugAdministration. This assay has been validated pursuantto the CLIA regulations and is used for clinicalpurposes.THIS TEST WAS PERFORMED AT:[employer] [id number] [place] [id number] CARRANZA MD,PHD Vitamin D, 25-OH, D3 56 ng/mL [facility] Comment:This test was develo ped and its analytical performancecharacteristics have been determined by [employer] [place], [place]. It hasnot been cleared or approved by the U.S. Food and DrugAdministration. This assay has been validated pursuantto the CLIA regulations and is used for clinicalpurposes. Vitamin D, 25-OH, Total 56 30 - 100 ng/mL [facility] Comment:Vitamin D, 25-Hydrox y reports concentrations of twocommon forms, 25-OHD2 and 25-OHD3. 25-OHD3 indicatesboth endogenous production and supplementation.25-OHD2 is an indicator of exogenous sources such asdiet or supplementation. Therapy is based onmeasurement of Total 25-OHD, with levels <20 ng/mLindicative of Vitamin D deficiency, while levelsbetween 20 ng/mL and 30 ng/mL suggest insufficiency.Optimal levels are > or = 30 ng/mL.For additional information, please refer tohttp://education.ONEPLE/faq/SIE839(This link is being provided for informational/educational purposes only.) 08/27/2024 11:3 0 AM EST 08/27/2024 11:30 AM EST us Generic External Data Provider LAB BLOOD ORDERAB LES Final Result Performing Organization Address [facility]/ZIP Co de Phone Number [facility] [address] [place] [phone] * Vitamin B12 (Cobalamin) and Folate Panel, Serum (08/27/2024 11:30 AM EST) Pathologist [facility] Vitamin B12 427 200 - 900 pg/mL [facility] Comment:NORMAL 200-900 PG/ML INDETERMINATE 160-199 PG/ML DEFICIENT < 160 PG/ML Folate 5.0 > or = 4.0 ng/mL [facility] Comment:Reference Values:> o r = 4.0 ng/mL< 4.0 ng/mL suggests folate deficiency Methotrexate, aminopterin and folinic acid(leucovorin) are chemotherapeutic agents whose molecularstructures are similar to folate; therefore, the Architectfolate assay cannot be used for patients using these drugs. 08/27/2024 11:3 0 AM EST 08/27/2024 11:30 AM EST us Generic External Data Provider LAB BLOOD ORDERAB LES Final Result Performing Organization Address [facility] Co de Phone Number [facility] [address] [place] [phone] * TSH with Reflex to Free T4 (08/27/2024 11:30 AM EST) Pathologist [facility] TSH reflex Free T4 1.62 0.32 - 4.0 uIU/mL [facility] 08/27/2024 11:3 0 AM EST 08/27/2024 11:30 AM EST us Generic External Data Provider LAB BLOOD ORDERAB LES Final Result Performing Organization Address [facility] Co de Phone Number [facility] [address] [place] [phone] * Tissue Transglutaminase Antibody, IgA (08/27/2024 11:30 AM EST) Pathologist [facility] Transglutaminase IgA <1.0 U/mL [facility] Comment:Value Interpretation ----- <15.0 Antibody not detected> or = 15.0 Antibody detectedTHIS TEST WAS PERFORMED AT:[employer] [place] [id number] REDMOND MD 08/27/2024 11:3 0 AM EST 08/27/2024 11:30 AM EST us Generic External Data Provider LAB BLOOD ORDERAB LES Final Result [facility] [address] [place] [phone] * (ABNORMAL) CBC (08/27/2024 11:30 AM EST) White Blood Count 12.9(H) 4.8 - 10.8 X10*3/uL [facility] Red Blood Count 4.82 4.20 - 5.50 X10*6/uL [facility] Hemoglobin 12.9 12.0 - 16.0 g/dl [facility] Hematocrit 40.4 37.0 - 47.0 % [facility] Mean Corpuscular Volume 83.8 80.0 - 98.0 fL [facility] Mean Corpuscular Hemoglobin 26.8(L) 27.0 - 33.0 pg [facility] Mean Corpuscular HGB Conc 31.9 31.0 - 35.0 g/dl [facility] Red Cell Distribution Width 14.8 11.0 - 16.0 % [facility] Platelet Count 368 160 - 400 X10*3/uL [facility] Mean Platelet Volume 10.3 9.4 - 12.3 fL [facility] NRBC Pct Auto 0.0 0.0 - 0.2 /100WBC [facility] NRBC Abs Auto 0.000 0.0 - 0.012 X10*3/uL [facility] 08/27/2024 11:3 0 AM EST 08/27/2024 11:30 AM EST us Generic External Data Provider LAB BLOOD ORDERAB LES Final Result Performing Organization Address [facility] Co de Phone Number [facility] [address] [place] [phone] * (ABNORMAL) C-reactive Protein (08/27/2024 11:30 AM EST) C Reactive Protein 2.22(H) < or = 0.50 mg/dL [facility] 08/27/2024 11:3 0 AM EST 08/27/2024 11:30 AM EST us Generic External Data Provider LAB BLOOD ORDERAB LES Final Result Performing Organization Address [facility] Phone Number [facility] [address] [place] [phone] * Lipase (08/27/2024 11:30 AM EST) Lipase 14 8 - 78 U/L [facility] 08/27/2024 11:3 0 AM EST 08/27/2024 11:30 AM EST Generic External Data Provider LAB BLOOD ORDERAB LES Final Result Performing Organization Address [facility] Phone Number [facility] [address] [place] [phone] * Comprehensive Metabolic Panel (08/27/2024 11:30 AM EST) Sodium 141 135 - 145 mmol/L [facility] Potassium 3.8 3.3 - 5.1 mmol/L [facility] Chloride 104 96 - 108 mmol/L [facility] Carbon Dioxide 27 22 - 29 mmol/L [facility] Anion Gap 14 12 - 20 [facility] Urea Nitrogen (BUN) 15 9 - 16 mg/dL [facility] Creatinine, Serum 0.80 0.5 - 1.4 mg/dL [facility] Estimated Glomerular Filt Rate >60 [facility] Comment:Chronic Kidney Disea se: Estimated GFR < 60 mL/min/1.08v7Sqkcmq Kidney Disease: Estimated GFR < 15 mL/min/1.73m2 Glucose 75 60 - 115 mg/dL [facility] Calcium 9.1 8.4 - 10.2 mg/dL [facility] Bilirubin, Total 0.4 0.0 - 1.0 mg/dL [facility] Aspartate Amino Transferase 19 5 - 31 U/L [facility] Alanine Aminotransferase 10 0 - 31 U/L [facility] Total Protein 8.0 6.5 - 8.0 g/dL [facility] Albumin Level 4.2 3.5 - 5.0 g/dL [facility] Alkaline Phosphatase 102 39 - 117 U/L [facility] 08/27/2024 11:3 0 AM EST 08/27/2024 11:30 AM EST us Generic External Data Provider LAB BLOOD ORDERAB LES Final Result [facility] [address] [place] [phone] * (ABNORMAL) Lipid Panel, Standard (04/30/2024 2:25 PM EDT) Triglycerides 173(H) <150 mg/dL [facility] Comment:Desirable Triglyceri de: less than 150 mg/dLBorderline High Triglyceride 150-199 mg/dLHigh Triglyceride: 200-499 mg/dLVery High Triglyceride: greater than or equal to 5OO mg/dL Cholesterol 213(H) <200 mg/dL [facility] Comment:Desirable Cholestero l: less than 200 mg/dLBorderline High Cholesterol: 200-239 mg/dLHigh Cholesterol: greater than 239 mg/dL LDL Cholesterol Calculated 134(H) <100 mg/dL [facility] Comment:Desirable LDL: less than 100 mg/dLNear Optimal/Above Optimal LDL: 110- 129 mg/dLBorderline High LDL: 130-159 mg/dLHigh LDL: 160-189 mg/dLVery High LDL: greater than or equal to 190 mg/dL HDL Cholesterol 45 >40 mg/dL [facility] Comment:Desirable HDL: great er than 40 mg/dL Note: This HDL assay may give artificially low results in patients with liver disease. Blood Venous blood specimen / Unknown 04/30/2024 2:25 PM EDT 04/30/2024 4:57 PM EDT us Aaron Harris MD LAB BLOOD ORDERABLES Final Result [facility] [address] [place] [phone] * BI Mammogram Screening Tomosynthesis Bilateral (01/26/2024 1:45 PM EDT) Anatomical Region Laterality Modality Breast Bilateral Mammography 01/26/2024 1:45 PM EDT Narrative 02/24/2024 2:20 PM EDT ? [facility] ? [address] ?[place] [address] ? Mammography Report ? Signed ? Patient: Zee Villanueva ?MR#: [id number] ?? [id number] ? : 1975 ?Acct:[id number] ? Age/Sex: 48 / F ?ADM Date: 01/25/24 ? Loc: HO.MAMMO ? Attending Dr: Aaron Carcamo MD ? Ordering Physician: Aaron Carcamo MD ?Resu ?? lts: 1Negative ? Date of Service: 01/26/24 ?Follow Up: 1 Year From Orig ?? inal Mammogram ? Procedure(s): MM tomosynthesis screening BI ?? Accession Number(s): [id number] ? cc: Aaron Carcamo MD ? EXAMINATION: ?? MM SCREENING DIGITAL BREAST TOMOSYNTHESIS, BILATERAL ? CLINICAL INFORMATION: ? Screening. Asymptomatic. ? COMPARISON: ?? Mammography: This study is compared with prior exams dating back to ?? 2018. ?? . ?? TECHNIQUE: ?? Digital breast tomosynthesis is performed in both the craniocaudal and ?? mediolateral oblique views along with computer-aided detection (CAD). ?? Synthesized 2D images are generated from the tomosynthesis. ? FINDINGS: ?? There are scattered areas of fibroglandular density (ACR BI-RADS breast ?? composition Category b). ? There are no significant masses, abnormal calcifications, or other ?? abnormalities. ? MM/MM tomosynthesis screening BI ?? IMPRESSION: ?? No mammographic evidence of malignancy. ? ASSESSMENT: ? BI-RADS BI-RADS 1 - Negative ? RECOMMENDATION: ?? Routine annual mammography screening. ? 1 year F/U ? This examination should not preclude the clinical evaluation of a ?? suspicious palpable abnormality. ? This patient's information was entered into a reminder system with a ?? target due date for their next mammogram. ? Dictated By: ?Nicole Thayer MD ? Signed By: ?<Electronically signed by Nicole Thayer MD in OV> ? 02/24/241416 ? DD/ 1345 ? TD/TT: ? Packerhead Machine Operator: ? Procedure Note Phil, Kyle - 02/24/2024 [facility] [address] [place] [address] Dr. [place], K[place] [address] Mammography Report Signed Patient: Zee Villanueva AMR#: [id number] : 1975Acct:[id number] Age/Sex: 48 / FADM Date: 01/26/24 Loc: HO.MAMMO Attending Dr: Aaron Carcamo MD Ordering Physician: Aaron Carcamo MDResu lts: 1Negative Date of Service: 01/26/24Follow Up: 1 Year From Orig inal Mammogram Procedure(s): MM tomosynthesis screening BI Accession Number(s): [id number] cc: Aaron Carcamo MD EXAMINATION: MM SCREENING DIGITAL BREAST TOMOSYNTHESIS, BILATERAL CLINICAL INFORMATION: Screening. Asymptomatic. COMPARISON: Mammography: This study is compared with prior exams dating back to 2019. . TECHNIQUE: Digital breast tomosynthesis is performed in both the craniocaudal and mediolateral oblique views along with computer-aided detection (CAD). Synthesized 2D images are generated from the tomosynthesis. FINDINGS: There are scattered areas of fibroglandular density (ACR BI-RADS breast composition Category b). There are no significant masses, abnormal calcifications, or other abnormalities. MM/MM tomosynthesis screening BI IMPRESSION: No mammographic evidence of malignancy. ASSESSMENT: BI-RADS BI-RADS 1 - Negative RECOMMENDATION: Routine annual mammography screening. 1 year F/U This examination should not preclude the clinical evaluation of a suspicious palpable abnormality. This patient's information was entered into a reminder system with a target due date for their next mammogram. Dictated By: Nicole Thayer MD Signed By: <Electronically signed by Nicole Thayer MD in OV> 02/24/24 1417 DD/ 1345 TD/TT: Packerhead Machine Operator: us Aaron Harris MD IMG BI PROCEDURES Fin al Result * HEPATITIS PANEL, ACUTE W/REFLEX TO CONFIRMATION (03/06/2021 5:09 PM EDT) HEPATITIS A IGM NON-REACT JANIA NON-REACT JANIA [facility] Comment: ?? For additional information, please refer to ?? http://[employer]/faq/SAV243 ?? (This link is being provided for informational/ educational purposes only.) ?? HEPATITIS B CORE ANTIBODY (IGM) NON-REACT JANIA NON-REACT JANIA [facility] HEPATITIS B SURFACE ANTIGEN NON-REACT JANIA NON-REACT JANIA [facility] HEPATITIS C ANTIBODY NON-REACT JANIA NON-REACT JANIA [facility] INDEX 0.02 <1.00 [facility] Comment: ?? HCV antibody was non-reactive. There is no laboratory ?? evidence of HCV infection. ?? In most cases, no further action is required. However, if recent HCV exposure is suspected, a test for HCV RNA (test code 98042) is suggested. ?? For additional information please refer to http://Navut.[employer]/faq/LQR81n1 (This link is being provided for informational/ educational purposes only.) ?? 03/06/2021 5:09 PM EDT us Sumi Vang ANP HISTORICAL/NON ORDERABLE LABS Fi nal Result [facility] [address] * HIV AB/AG (02/26/2020 1:03 PM EDT) HIV AG/AB NONREACTIVE [facility] Comment: HIV-1 p24 Ag and/or HIV-1/HIV-2 Ab not detected. ?? A test result that is nonreactive does not exclude the possibility of exposure to or infection with HIV-1 and/or HIV-2. Nonreactive results in this assay for individuals with prior exposure to HIV-1 and/or HIV-2 may be due to antigen and antibody levels that are below the limit of detection of this assay. ?? The [employer] HIV Ag/Ab Combo assay result and supplemental assay results should be interpreted in conjunction with the patient's clinical presentation, history and other laboratory results. ??If the results are inconsistent with clinical evidence, additional testing is suggested to confirm the result. 02/26/2020 1:03 PM EDT us Aaron Harris MD HISTORICAL/NON ORDERA BLE LABS Final Result [facility] [address] from Last 3 Months or Most Recently Relevant to Health Maintenance Insurance [address] [place] [address] [place] [facility] MEDICAID STAND AD[address] [place] [address] [address] [place] [address] * Guarantor: Zee Villanueva Account Type Relation to Patient Date of Phone Billing Address Personal/Family Self 1975 [address] [place] [address] Care Teams Door Patcher Relationship Specialty Start Date End Date Aaron Pisano MD [address] [place] [phone] PCP - General Internal Medicine 05/10/14 Antonietta Lim Loom OperatorPhotovoltaic Installer 09/18/24
--- NOTE | 2024-09-28 16:42 | A.OFFVIS_ITS ---
Vital Signs 09/28/24 16:45 Height 4 ft 11 in Weight 194 lb 7.163 oz BMI 39.3 BP 100/50 L Blood Pressure Location Rt brachial Position Sitting Pulse 84 Pulse Source Pulse Oximeter Pulse Oximetry (%) 96 Oxygen Delivery Method Room Air Intake Visit Reasons: h pylori f/u Intake Note: ESTABLISHED PATIENT for mgmt of H Pylori infection. Positive result 09/14. Labs done. Chief Complaint; C/O N+V, diarrhea, not responding to PRN tx. Pt also reports having multiple yeast infections since starting tx. Pt denies any additional GI sx at this time. Pt still actively taking abx tx. [employer] Required: No Accompanied by: Self / Same As Patient Allergies tramadol Allergy (Intermediate, Verified 10/04/24 11:53) swelling buspirone [From BuSpar] Allergy (Mild, Verified 10/04/24 11:53) rash lamotrigine [From Lamictal] Allergy (Mild, Verified 10/04/24 11:53) Unknown naproxen Allergy (Unknown, Verified 10/04/24 11:53) anaphylaxis NSAIDS (Non-Steroidal Anti-Inflamma [NSAIDS (NON-STEROIDAL ANTI-INFLAMMA] Allergy (Unknown, Verified 10/04/24 11:53) ANAPHYLAXIS Penicillins [PENICILLINS] Allergy (Unknown, Verified 10/04/24 11:53) ANAPHYLAXIS methotrexate Allergy (Verified 10/04/24 11:53) Rash HPI HPI h pylori f/u: Details: LAST VISIT: GERD (gastroesophageal reflux disease) Nausea & vomiting Abdominal pain Diarrhea Plan Patient will get tested for H pylori. She will start famotidine for 2 weeks. 24- 48 hours before testing. Patient will start Citrucel 2 tablets daily. Increase fluid intake and activity to promote better bowel motility. May use loperamide as needed. DD: Pancreatitis, H pylori, celiac, IBS, IBD. Will check CRP, CBC, CMP, lipase, vitamin B12, folate, vitamin-D, thyroid study and transglutaminase. Want patient to do GI panel, however she reports that she does not want to do a stool study as she does not want to put stool sample in the refrigerator and she does not have a transportation to bring the sample right away. Patient will return to the office in 5-6 weeks. She will call us if she will have worsening symptoms. She is agreeable to this plan and verbalizes understanding of instructions. She was given the opportunity to ask questions and all questions answered. Orders Orders TSH reflex Free T4 Today K59.00 Transglutaminase IgA Today R10.9 Lipase Today R10.9 Vitamin B12 and Folate Today R19.7 Vitamin D 25-OH (D2 and D3) Today E55.9 C Reactive Protein Today K58.9 H Pylori Breath Test Today K21.9 Complete Blood Count no Diff Today K21.9 Comprehensive Met. Panel Today K21.9 Medications New methylcellulose (laxative) (Citrucel) 1,000 mg (2 x 500 mg) PO DAILY 60 tabs 2RF famotidine (Pepcid) 20 mg PO BID 60 tabs 3RF K29.70 methylcellulose (laxative) (Citrucel) 1,000 mg (2 x 500 mg) PO DAILY 60 tabs 2RF famotidine (Pepcid) 20 mg PO BID 30 tabs 0RF K29.70 TODAY'S VISIT Patient is here today for follow-up and to discuss treatment. Patient reports that since she was treated with antibiotics for H pylori she had yeast infection. Patient is upset as she was never informed that this infection could be transmitted. Patient states that her has no symptoms. Discussed with her that sometimes people can be positive despite having the symptoms and sometimes vice versa. Not always everyone will get H pylori even though they share the same the utensils. Patient reports that she read different informa tion using Google search when she got worry. Discussed with patient the importance of calling our office if she ever has any questions regarding her search. Patient reports that her symptoms are under control now. She is however concerned about her yeast infection. Patient denies any dyspepsia, dysphagia or odynophagia. Denies any melena, hematochezia, unintentional weight loss or ribbon like stools. Reports that she is moving her bowels without any issues. Occasional abdominal bloating postprandially depending on what she eats. [facility] Medical History GERD (gastroesophageal reflux disease) Asthma exacerbation Sinusitis Somnolence, daytime Snoring Morbid obesity Cough Asthma Allergic rhinitis Obesity (BMI 30-39.9) PCOS (polycystic ovarian syndrome) Vitamin D deficiency Surgical History History of bladder surgery Hx of dilation and curettage Hx of section Hx laparoscopic cholecystectomy Hx of tooth extraction Hx of hysterectomy Family History Father Heart disease Mother Diabetes mellitus Raynaud disease Paternal Grandfather Diabetes mellitus Paternal Uncle Diabetes mellitus Social History Household Members: Children Housing: House Do you presently have visiting nurse or other home services: No (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, 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) Alcohol intake: current Alcohol intake frequency: a few times a month Alcohol type: wine Patient Tobacco Use Status: Former Tobacco user Tobacco use type: Cigarette Cigarettes Per Day: 3 Second Hand Smoke Exposure: No Substance Use Type: Marijuana Advance Directives Date on File: 01/12/22 service: No Current occupational status: unemployed Review of Systems Const Denies weight gain, Denies weight loss and Reports other (Episode of dizziness few days ago) ENT Reports no additional complaints, Denies dysphagia and Denies odynophagia Card Reports no additional complaints Resp Reports no additional complaints GI Reports abdominal pain, Denies belching, Denies melena, Reports bloating, Denies change in bowel habits, Denies dysphagia, Denies excessive flatus, Denies dyspepsia, Reports heartburn (Occasional), Denies diarrhea, Reports loose stools, Denies nausea, Denies odynophagia and Denies vomiting Reports no additional complaints Musc Reports no additional complaints Neuro Reports no additional complaints Psych Reports no additional complaints Endo Reports no additional complaints Physical Exam Vital Signs: Last Vital Signs Pulse 84 09/28/24 16:45 BP 100/50 L 09/28/24 16:45 Pulse Ox 96 09/28/24 16:45 Oxygen Delivery Method Room Air 09/28/24 16:45 BMI result Body Mass Index 39.3 Const General: healthy appearing and no acute distress Nutritional Appearance: obese Orientation/consciousness: patient oriented x3 Resp Effort & Inspection: normal respiratory effort, able to speak in complete sentences, no tracheal deviation and symmetric chest movement Auscultation: clear to auscultation bilaterally Cardio Rate: regular rate GI Inspection: Yes normal to inspection, No distended and Yes obesity Palpation (GI): Soft to palpation, not firm, nontender and No hepatosplenomegaly present Auscultation: normal bowel sounds General: Yes no CVA tenderness Back/Spine/Pelvis Back: no CVA tenderness Skin General skin exam: elasticity normal, turgor normal and dry skin Neuro General: patient oriented x3 Psych Appearance: grossly normal Mental Status: mental status grossly normal Assessment & Plan Assessment & Plan (1) GERD (gastroesophageal reflux disease): Code(s): K21.9 - Gastro-esophageal reflux disease without esophagitis Category: Medical Qualifiers: Esophagitis presence: esophagitis presence not specified Qualified Code(s): K21.9 - Gastro-esophageal reflux disease without esophagitis (2) Nausea & vomiting: Code(s): R11.2 - Nausea with vomiting, unspecified Qualifiers: Vomiting type: unspecified Qualified Code(s): R11.2 - Nausea with vomiting, unspecified (3) Abdominal pain: Code(s): R10.9 - Unspecified abdominal pain Qualifiers: Abdominal location: generalized Qualified Code(s): R10.84 - Generalized abdominal pain (4) Diarrhea: Code(s): R19.7 - Diarrhea, unspecified Qualifiers: Diarrhea type: functional diarrhea Qualified Code(s): K59.1 - Functional diarrhea (5) Helicobacter pylori (H. pylori): Code(s): A04.8 - Other specified bacterial intestinal infections (6) Yeast infection: Code(s): B37.9 - Candidiasis, unspecified Plan Patient reports occasional nausea will send her script for Zofran. Reports yeast infection,, vaginal itch, will send her script for fluconazole and Monistat, however is symptoms continue patient was encouraged to call OBGYN or PCP. Continue omeprazole. Avoid dietary triggers and late night snacking. Staying upright for minimal 3 hours after meals discussed with patient. Follow- up in the office in 5 weeks, sooner on as needed basis. Patient is agreeable to this plan and verbalizes understanding of instructions. She was given the opportunity to ask questions and all questions answered. Thank you for allowing me to participate in her care Medications: New fluconazole 150 mg PO ONCE 1 tab 0RF miconazole nitrate 2% (Monistat 7) 1 appful vaginal BEDTIME 45 grams 2RF Refilled ondansetron 4 mg PO Q8H PRN 20 tabs 0RF nausea and vomiting Coding Level of Care Code Est Pt Level 4 (93618) Complex EM visit Add On G2211 Diagnoses Gastroesophageal reflux disease, unspecified whether esophagitis present K21.9 Esophagitis presence: esophagitis presence not specified Nausea and vomiting, unspecified vomiting type R11.2 Vomiting type: unspecified Generalized abdominal pain R10.84 Abdominal location: generalized Functional diarrhea K59.1 Diarrhea type: functional diarrhea Helicobacter pylori (H. pylori) A04.8 Yeast infection B37.9 Time Spent (min) 35 Comment 25 minutes spent with patient and additional 10 minutes spent reviewing her records
[2024-09-28 16:45] VITALS: BP 100/50; PULSE 84; O2SAT 96; BMI 39.3
== END 2024-09-28 17:27 | disposition home or self-care (01) ==
PROVIDERS: PCP Internal Medicine; Visit Provider Nurse Practitioner Family
DX: K21.9 Gastro-esophageal reflux disease without esophagitis (principal); R11.2 Nausea with vomiting, unspecified; R10.84 Generalized abdominal pain; K59.1 Functional diarrhea; A04.8 Other specified bacterial intestinal infections; B37.9 Candidiasis, unspecified
CPT/HCPCS: 99214

== ENCOUNTER → 2024-09-28 16:37 | Outpatient (BNVA) | payer MEDICAID, SELFPAY | PROVIDERS: PCP Internal Medicine; Visit Provider Nurse Practitioner Family | DX: K21.9 Gastro-esophageal reflux disease without esophagitis (principal); K59.1 Functional diarrhea; R11.2 Nausea with vomiting, unspecified; R10.84 Generalized abdominal pain; A04.8 Other specified bacterial intestinal infections; B37.9 Candidiasis, unspecified | CPT/HCPCS: 99212 ==

== ENCOUNTER 2024-10-04 11:05 | Outpatient (AMB) | payer MEDICAID, SELFPAY ==
[2024-10-04 11:30] VITALS: BP 110/62; PULSE 72; O2SAT 99; BMI 39.6
--- NOTE | 2024-10-04 11:30 | MHC.OFFVIS ---
Vital Signs 10/04/24 11:30 Height 4 ft 11 in Weight 196 lb 3.382 oz BMI 39.6 BP 110/62 Blood Pressure Location Lt brachial Pulse 72 Pulse Source Pulse Oximeter Pulse Oximetry (%) 99 Oxygen Delivery Method Room Air Intake Visit Reasons: Asthma Intake Note: pt is here for follow up and states she has a cough with thick white phelgm. New Car Make Ready Worker Required: No Allergies tramadol Allergy (Intermediate, Verified 10/04/24 11:53) swelling buspirone [From BuSpar] Allergy (Mild, Verified 10/04/24 11:53) rash lamotrigine [From Lamictal] Allergy (Mild, Verified 10/04/24 11:53) Unknown naproxen Allergy (Unknown, Verified 10/04/24 11:53) anaphylaxis NSAIDS (Non-Steroidal Anti-Inflamma [NSAIDS (NON-STEROIDAL ANTI-INFLAMMA] Allergy (Unknown, Verified 10/04/24 11:53) ANAPHYLAXIS Penicillins [PENICILLINS] Allergy (Unknown, Verified 10/04/24 11:53) ANAPHYLAXIS methotrexate Allergy (Verified 10/04/24 11:53) Rash Medication List - Last Reconciled 10/04/24 by Kerry James MD acetaminophen ER (Tylenol Arthritis Pain) 650 mg PO Q8H PRN albuterol sulfate 90 mcg/actuation (Ventolin HFA) 2 puffs PO Q4-6H PRN albuterol sulfate 2.5 mg (3 mL) inhalation Q6-8H 30 days baclofen 10 mg PO BID cetirizine (Zyrtec) 10 mg PO DAILY cholecalciferol (vitamin D3) 50 mcg PO DAILY 30 days diphenhydramine HCl (Laureen-Dryl) 25 mg PO TID PRN doxycycline hyclate 100 mg PO BID 14 days famotidine (Pepcid) 20 mg PO BID fluconazole 150 mg PO ONCE fluticasone propion-salmeterol 250-50 mcg/dose (Advair Diskus) 1 ea PO BID fluticasone propionate 50 mcg/actuation 1 spray intranasal BID furosemide (Lasix) 40 mg PO DAILY hydroxyzine HCl 10 mg PO QID PRN loperamide (Anti-Diarrheal (loperamide)) mg PO loratadine 10 mg PO DAILY losartan 25 mg PO DAILY methylcellulose (laxative) (Citrucel) 1,000 mg (2 x 500 mg) PO DAILY metoclopramide HCl (Reglan) 5 mg PO TIDWMEAL metronidazole 1,000 mg (2 x 500 mg) PO BID miconazole nitrate 2% (Monistat 7) 1 appful vaginal BEDTIME mirabegron ER (Myrbetriq) 25 mg PO QAM montelukast 10 mg PO BEDTIME nicotine (polacrilex) 4 mg PO Q2H PRN omeprazole 20 mg PO BID ondansetron 4 mg PO Q8H PRN oxycodone 5 mg PO Q6H PRN sumatriptan succinate mg PO topiramate 100 mg PO BEDTIME valacyclovir (Valtrex) 1,000 mg PO DAILY varenicline tartrate 1 mg PO DAILY zolpidem ER 12.5 mg PO BEDTIME PRN Do you need a note to return to daycare/school/sports/work: No HPI HPI Asthma: Details: 49 YEARS OLD FEMALE IS HERE FOR FOLLOW-UP AFTER 4 MONTHS. SHE REMAINS GROSSLY OBESE BUT DENIES SYMPTOMS OF SLEEP APNEA. SHE HAS CHRONIC NASAL ALLERGIES, WITH POSTNASAL DISCHARGE AND COUGH. ALSO HAS MILD BRONCHIAL ASTHMA. AT PRESENT SHE COMPLAINS OF WAKING UP ABOUT ONCE OR TWICE PER NIGHT TO USE THE ALBUTEROL BY [facility]. SHE HAS MILD NASAL CONGESTION WITH POSTNASAL DISCHARGE OF WHITISH PHLEGM. DURING THE DAYTIME SHE HAS INTERMITTENT COUGH BUT NO WHEEZING. SHE STILL SMOKES A FEW CIGARETTES EVERY DAY , ( 3 A DAY ) SHE ALSO USES MARIJUANA A FEW TIMES EVERY DAY. [facility] Medical History GERD (gastroesophageal reflux disease) Asthma exacerbation Sinusitis Somnolence, daytime Snoring Morbid obesity Cough Asthma Allergic rhinitis Obesity (BMI 30-39.9) PCOS (polycystic ovarian syndrome) Vitamin D deficiency Surgical History History of bladder surgery Hx of dilation and curettage Hx of section Hx laparoscopic cholecystectomy Hx of tooth extraction Hx of hysterectomy Family History Father Heart disease Mother Diabetes mellitus Raynaud disease Paternal Grandfather Diabetes mellitus Paternal Uncle Diabetes mellitus Social History Household Members: Children Housing: House Do you presently have visiting nurse or other home services: No (appointment for WATER CHEMIST, in progress) Alcohol intake: current Alcohol intake frequency: a few times a month Alcohol type: wine Patient Tobacco Use Status: Former Tobacco user Tobacco use type: Cigarette Cigarettes Per Day: 3 Second Hand Smoke Exposure: No Substance Use Type: Marijuana Advance Directives Date on File: 01/12/22 service: No Current occupational status: unemployed Review of Systems Const All systems reviewed & are unremarkable except as noted in HPI and below Reports headache(s) (Off and on) Eyes Reports no additional complaints ENT Reports headache(s) (Off and on) and Reports nasal congestion (Mild intermittent) Card Denies chest pain, Denies irregular heart rhythm and Denies leg edema Resp Reports as per HPI GI Reports no additional complaints Reports urinary incontinence Musc Reports back pain and Reports myalgias Skin/Breast Reports system reviewed and no additional complaints, except as documented Neuro Reports headache(s) (Off and on) Psych Reports depression and Reports other (Insomnia) Endo Reports other (Being treated for type 2 diabetes mellitus) Physical Exam Vital Signs: Last Vital Signs Pulse 72 10/04/24 11:30 BP 110/62 10/04/24 11:30 Pulse Ox 99 10/04/24 11:30 Oxygen Delivery Method Room Air 10/04/24 11:30 BMI result Body Mass Index 39.6 Const Other: MORBIDLY OBESE, APPEARS VERY UNCOMFORTABLE, DUE TO PAIN IN THE BACK AND ALSO, POINTS TO BOTH MAXILLARY AREAS WHERE IT HURTS. General: no acute distress, alert and awake Orientation/consciousness: patient oriented x3 HEENT Head: Yes normal to inspection General nose exam: No nasal polyps present and No nasal discharge present Mouth: oropharynx normal Throat: Yes posterior oropharynx normal Eyes General: appearance normal, both eyes and all related structures Neck Neck: Yes normal visual inspection, Yes no lymphadenopathy, Yes trachea midline and Yes no JVD Thyroid: Thyroid normal Chest Chest palpation & inspection: normal inspection of the chest, normal palpation of entire chest wall and no tenderness Resp Other: PERCUSSION NOTE IS RESONANT. BREATH SOUNDS DIMINISHED OVER BOTH BASILAR AREAS. ON AUSCULTATION NO WHEEZES OR RHONCHI ARE HEARD TODAY. Cardio Palpation: normal PMI Rate: regular rate Rhythm: regular rhythm Heart sounds: no gallops and no murmurs GI Palpation (GI): Soft to palpation, nontender, No hepatosplenomegaly present, no masses and Other GI palpation findings present (ABDOMEN IS MODERATELY OBESE AND PROTUBERANT) Auscultation: normal bowel sounds Back/Spine/Pelvis Thoracic/Lumbar Spine: thoracic and lumbar spine normal to inspection, thoraco-lumbar ROM limited and thoraco-lumbar spasm Skin General skin exam: no rashes or lesions noted Neuro General: patient oriented x3 and no focal motor deficits Cranial nerves: Yes CN's II-XII intact bilaterally Extrem General: Yes normal to inspection, Yes no clubbing, cyanosis or edema and Yes no calf tenderness Right upper extremity: no edema Psych Appearance: grossly normal and well kempt Speech and movement: Normal speech and movement present Assessment & Plan Assessment & Plan (1) Asthma: Comment: Chronic persistent bronchial asthma . At present seems to be fairly well controlled with continued use of Advair. No significant wheezes are heard on the chest. She claims to be waking up once or twice per night with cough and has to use the albuterol inhaler or albuterol in the nebulizer. Code(s): J45.909 - Unspecified asthma, uncomplicated Category: Medical Plan: Continue Advair 250-50 1 inhalation b.i.d. and albuterol HFA 2 puffs Q 6 hours p.r.n., or alternatively may use albuterol solution in the nebulizer Q 6 hours p.r.n.. (2) Snoring: Comment: She does have snoring at night but does not have obstructive sleep apnea. Code(s): R06.83 - Snoring Category: Medical Plan: Needs to lose weight. (3) Obesity (BMI 30-39.9): Comment: SHE DOES HAVE MORBID OBESITY, NEEDS TO LOSE WEIGHT BUT NOT POSSIBLE FOR HER AT THIS TIME, ESPECIALLY BECAUSE OF ONGOING BACK PAIN. LUCKILY THE SLEEP STUDY WAS NEGATIVE FOR SLEEP APNEA. Code(s): E66.9 - Obesity, unspecified Category: Medical Plan: Encouraged to watch her diet and try to lose weight even by 1 or 2 lb per month. (4) Allergic rhinitis: Comment: Chronic persistent, problem, around the year, but seems to be controlled. Code(s): J30.9 - Allergic rhinitis, unspecified Category: Medical Plan: Continue montelukast 10 mg daily. Zyrtec 10 mg once a day p.r.n. Flonase nasal spray 1 spray each nostril b.i.d. Coding Level of Care Code Est Pt Level 3 (76224) Diagnoses Asthma J45.909 Snoring R06.83 Obesity (BMI 30-39.9) E66.9 Allergic rhinitis J30.9
--- OUTSIDE RECORDS SUMMARY | 2024-10-04 13:22 | XMS_ITS | Encounter Summary ---
Demographics Address [address] [place] [address] [address] [place] [address] Work Phone Home Phone Mobile Phone Email Address Preferred Language en Marital Status Single Amish Affiliation Unknown Race White Ethnic Group or Author Organization [employer] Address [address] [place] [address] [address] [place] [address] Care Team Providers Care Ror Engineer Name Role Phone Aaron Pisano MD Primary Care Provide r Reason for Visit * Reason Onset Date Comments Med Refill 04/04/2023 Encounter Details Date Type Department Care Team ([facility] st Contact Info) Description 04/04/2023 Telephone [facility] MEDICINE [address] [place] [address] Aaron Pisano MD [address] [place] [address] Med Refill Social History Tobacco Use Types [...] Description 10/18/2024 11:00 AM EDT Clinical Support [facility] MED [facility] PEDS [address] [place] [address] Altagracia Mancilla, RN [address] [place] [address] 01/31/2025 10:00 AM EDT Office Visit [facility] ADULT DENTAL [address] [place] [address] Zhanna Hernandez documented as of this encounter Goals Goal Patient Goal Type Associated Problems Recent Progress Patient-Stated? Author Blood Pressure < 140/90 Blood Pressure 118/64( 025 2:32 PM EST) No Giovanna Banks, PharmD documented as of this encounter Visit Diagnoses Not on filedocumented in this encounter Care Teams Ror Engineer Relationship Specialty Start Date End Date Aaron Pisano MD [address] [place] [address] PCP - General Internal Medicine 05/10/14 Antonietta Lim Breakfast SupervisorMsws 09/18/24 documented as of this encounter
--- OUTSIDE RECORDS SUMMARY | 2024-10-04 13:22 | XMS_ITS | Encounter Summary ---
Demographics Address [address] [place] [address] [address] [place] [address] Work Phone Home Phone Mobile Phone Email Address Preferred Language en Marital Status Single Latter Day Affiliation Unknown Race White Ethnic Group or Author Organization [employer] Address [address] [place] [address] [address] [place] [address] Care Team Providers Care Cnc Operator Machinist Name Role Phone Aaron Pisano MD Primary Care Provide r Reason for Visit * Reason Onset Date Comments Med Refill 08/24/2022 Encounter Details Date Type Department Care Team ([facility] st Contact Info) Description 08/24/2022 Telephone [facility] MEDICINE [address] [place] [address] Aaron Pisano MD [address] [place] [address] Med Refill Social History Tobacco Use Types [...] 10/18/2024 11:00 AM EDT Clinical Support [facility]ED[facility] [address] [place] [address] Altagracia Mancilla, GRACIELA [address] [place] [address] 01/31/2025 10:00 AM EDT Office Visit [facility] ADULT DENTAL [address] [place] [address] Zhanna Hernandez documented as of this encounter Visit Diagnoses Not on filedocumented in this encounter Care Teams Cnc Operator Machinist Relationship Specialty Start Date End Date Aaron Pisano MD [address] [place] [address] PCP - General Internal Medicine 05/10/14 Antonietta Lim Operations ArchitectCharge Account Identification Clerk 09/18/24 documented as of this encounter
--- OUTSIDE RECORDS SUMMARY | 2024-10-04 13:22 | XMS_ITS | Encounter Summary ---
Demographics Address [address] [place] [address] [address] [place] [address] Work Phone Home Phone Mobile Phone Email Address Preferred Language en Marital Status Single Gnosticism Affiliation Unknown Race White Ethnic Group or Author Organization [employer] [facility] Address [address] [place] [address] [address] [place] [address] Care Team Providers Care Medication Nurse Name Role Phone Aaron Pisano MD Primary Care Provide r Encounter Details Date Type Department Care Team (Latest Contact Info) Description 07/16/2019 Abstract [facility] CONVERSIONS Dental, Provider, DDS Social History [...] Description 10/18/2024 11:00 AM EDT Clinical Support [facility] CH[facility] MED & PEDS [address] [place] [address] Altagracia Mancilla, GRACIELA [address] [place] [address] 01/31/2025 10:00 AM EDT Office Visit [facility] ADULT DENTAL [address] [place] [address] Zhanna Hernandez documented as of this encounter Visit Diagnoses Not on filedocumented in this encounter Care Teams Medication Nurse Relationship Specialty Start Date End Date Aaron Pisano MD [address] [place], [place] [phone] PCP - General Internal Medicine 05/10/14 Antonietta Lim Medical Billing And Coding InstructorHygiene Teacher 09/18/24 documented as of this encounter
--- OUTSIDE RECORDS SUMMARY | 2024-10-04 13:22 | XMS_ITS | Encounter Summary ---
Demographics Address [address] [place] [address] [address] [place] [address] Work Phone Home Phone Mobile Phone Email Address Preferred Language en Marital Status Single Worship Affiliation Unknown Race White Ethnic Group or Author Organization [employer] Address [address] [place] [address] [address] [place] [address] Care Team Providers Care Activities Counselor Name Role Phone Aaron Pisano MD Primary Care Provide r Reason for Visit * Reason Comments Med Refill Encounter Details Date Type Department Care Team ([facility] st Contact Info) Description 01/30/2024 Refill [facility] MEDICINE [address] [place], [place] [phone] Aaron Pisano MD [address] [place], [place] [phone] Chronic midline low back pain without sciatica [...] Description 10/18/2024 11:00 AM EDT Clinical Support [facility] CH[facility] MED & PEDS [address] [place] [address] Altagracia Mancilla RN [address] [place] [address] 01/31/2025 10:00 AM EDT Office Visit [facility] ADULT DENTAL [address] [place] [address] Zhanna Hernandez documented as of this encounter [...] documented as of this encounter Care Teams Activities Counselor Relationship Specialty Start Date End Date Aaron Pisano MD [address] [place] [address] PCP - General Internal Medicine 05/10/14 Antonietta Lim Student Life Vice PresidentMold Dumper 09/18/24 documented as of this encounter
--- OUTSIDE RECORDS SUMMARY | 2024-10-04 13:22 | XMS_ITS | Encounter Summary ---
Demographics Address [address] [place] [address] [address] [place] [address] Work Phone Home Phone Mobile Phone Email Address Preferred Language en Marital Status Single Shinto Affiliation Unknown Race White Ethnic Group or Author Organization [employer] Address [address] [place] [address] 7t [place] [address] Care Team Providers Care Educational Coordinator Name Role Phone Aaron Pisano MD Primary Care Provide r Reason for Visit * Reason Comments Med Refill Encounter Details Date Type Department Care Team ([facility] Contact Info) Description 02/18/2023 Refill [facility] MEDICINE 230 [place] [address] Aaron Pisano MD 230 [place] [address] Social History Tobacco Use Types Packs/Day Years [...] Upcoming Encounters Date Type Department Care Team ([facility] Contact Info) Description 10/18/2024 11:00 AM EDT Clinical Support [facility] CHC MED & PEDS [address] [place] [address] Altagracia Mancilla, RN [address] [place] [address] 01/31/2025 10:00 AM EDT Office Visit [facility] ADULT DENTAL 230 [place] [address] Zhanna Hernandez documented as of this encounter Visit Diagnoses Not on filedocumented in this encounter Care Teams Educational Coordinator Relationship Specialty Start Date End Date Aaron Pisano MD 230 [place] [address] PCP - General Internal Medicine 05/10/14 Antonietta Lim Waiter/Waitress Cabin ClassFabricator Artificial Breast 09/18/24 documented as of this encounter
--- OUTSIDE RECORDS SUMMARY | 2024-10-04 13:22 | XMS_ITS | Encounter Summary ---
Demographics Address [address] [place] [address] [address] [place] [address] Work Phone Home Phone Mobile Phone Email Address Preferred Language en Marital Status Single Uatsdin Affiliation Unknown Race White Ethnic Group or Author Organization [employer] Address [address] 7t [place] [address] Care Team Providers Care Ict Security Specialist Name Role Phone Aaron Pisano MD [...] Clinical Support [facility] CHC MED & PEDS 505 [place] [address] Altagracia Mancilla, GRACIELA 505 [place] [address] 01/31/2025 10:00 AM EDT Office Visit [facility] ADULT DENTAL 230 [place] [address] Zhanna Hernandez documented as of this encounter [...] documented as of this encounter Care Teams Ict Security Specialist Relationship Specialty Start Date End Date Aaron Pisano MD 230 [place] [address] PCP - General Internal Medicine 05/10/14 documented as of this encounter
--- OUTSIDE RECORDS SUMMARY | 2024-10-04 13:22 | XMS_ITS | Encounter Summary ---
Demographics Address [address] [place] [address] [address] [place] [address] Work Phone Home Phone Mobile Phone Email Address Preferred Language en Marital Status Single Hindu Affiliation Unknown Race White Ethnic Group or Author Organization [employer] Address [address] [facility] 7t [place] [address] Care Team Providers Care Head Orthopedic Team Physician Name Role Phone Aaron Pisano MD Primary Care Provide r Reason for Visit * Reason Comments Med Refill Encounter Details Date Type Department Care Team ([facility] st Contact Info) Description 09/11/2024 Refill [facility] CHC MED & PEDS [address] [place], [place] [phone] Aaron Pisano MD [address] [place] [address] Social History Tobacco Use Types Packs/Day Years [...] Description 10/18/2024 11:00 AM EDT Clinical Support [facility] CHC MED & PEDS 505 [place] [address] Altagracia Mancilla, RN 505 [place] [address] 01/31/2025 10:00 AM EDT Office Visit [facility] ADULT DENTAL 230 [place] [address] Zhanna Hernandez documented as of this encounter [...] documented as of this encounter Care Teams Head Orthopedic Team Physician Relationship Specialty Start Date End Date Aaron Pisano MD 230 [place] [address] PCP - General Internal Medicine 05/10/14 documented as of this encounter
--- OUTSIDE RECORDS SUMMARY | 2024-10-04 13:22 | XMS_ITS | Encounter Summary ---
Demographics Address [address] [place] [address] [address] [place] [address] Work Phone Home Phone Mobile Phone Email Address Preferred Language en Marital Status Single Quaker Affiliation Unknown Race White Ethnic Group or Author Organization [employer] Address [address] [place] [address] 7t [place] [address] Care Team Providers Care Crisis Therapist Name Role Phone Aaron Pisano MD Primary Care Provide r Reason for Visit * Reason Comments Med Refill Encounter Details Date Type Department Care Team ([facility] st Contact Info) Description 05/07/[address] [facility] MEDICINE [address] [place], [place] [phone] Aaron Pisano MD 230 [place], [place] [phone] Chronic midline low back pain without sciatica [...] Description 10/18/2024 11:00 AM EDT Clinical Support [facility] CHC MED & PEDS 505 [place] [address] Altagracia Mancilla RN 505 [place] [address] 01/31/2025 10:00 AM EDT Office Visit [facility] ADULT DENTAL [address] [place] [address] Zhanna Hernandez documented as of this encounter [...] documented as of this encounter Care Teams Crisis Therapist Relationship Specialty Start Date End Date Aaron Pisano MD [address] [place] [address] PCP - General Internal Medicine 05/10/14 Antonietta Lim Mesh ManElectronic Warfare Specialist 09/18/24 documented as of this encounter
--- OUTSIDE RECORDS SUMMARY | 2024-10-04 13:22 | XMS_ITS | Encounter Summary ---
Demographics Address [address] [place] [address] [address] [place] [address] Work Phone Home Phone Mobile Phone Email Address Preferred Language en Marital Status Single Hoahaoism Affiliation Unknown Race White Ethnic Group or Author Organization [employer] Address [address] [place] [address] 7t [place] [address] Care Team Providers Care Track Grinder Name Role Phone Aaron Pisano MD Primary Care Provide r Reason for Visit * Reason Onset Date Comments Med Refill 11/16/2022 Encounter Details Date Type Department Care Team ([facility] st Contact Info) Description 11/16/2022 Telephone [facility] MEDICINE 230 [place] [address] Aaron Pisano MD 230 [place] [address] Med Refill Social History Tobacco Use Types [...] med refill status Please contact pt at [phone] * Telephone Encounter - Sonnymeleyann Jain - 11/30/2022 1:14 PM EDT Tc from pt requesting medication status. Please contact pt at [phone] * Telephone Encounter - Jenny Smith - 11/16/2022 4:36 PM EDT Tc from pt requesting med refill for medication oxyCODONE (Roxicodone) 5 MG immediate release tablet. documented in this encounter Plan of Treatment Upcoming Encounters Date Type Department Care Team (Late st Contact Info) Description 10/18/2024 11:00 AM EDT Clinical Support [facility] CHC MED & PEDS 505 [place] [address] Altagracia Mancilla, RN 505 [place] [address] 01/31/2025 10:00 AM EDT Office Visit [facility] ADULT DENTAL 230 [place] [address] Zhanna Hernandez documented as of this encounter Visit Diagnoses Not on filedocumented in this encounter Care Teams Track Grinder Relationship Specialty Start Date End Date Aaron Pisano MD 230 [place] [address] PCP - General Internal Medicine 05/10/14 Antonietta Lim Bed And Breakfast CookAssociate Trainer 09/18/24 documented as of this encounter
--- OUTSIDE RECORDS SUMMARY | 2024-10-04 13:22 | XMS_ITS | Encounter Summary ---
Demographics Address [address] [place] [address] [address] [place] [address] Work Phone Home Phone Mobile Phone Email Address Preferred Language en Marital Status Single Sabianism Affiliation Unknown Race White Ethnic Group or Author Organization [employer] Address [address] [place] [address] [address] [place] [address] Care Team Providers Care Music Coordinator Name Role Phone Aaron Pisano MD Primary Care Provide r Reason for Visit * Reason Onset Date Comments Med Refill 09/14/2022 Encounter Details Date Type Department Care Team ([facility] st Contact Info) Description 09/14/2022 Telephone [facility] MEDICINE 230 [place] [address] Aaron Pisano MD 230 [place] [address] Med Refill Social History Tobacco Use Types [...] Description 10/18/2024 11:00 AM EDT Clinical Support [facility] CHC MED & PEDS [address] [place] [address] Altagracia Mancilla, RN 505 [place] [address] 01/31/2025 10:00 AM EDT Office Visit [facility] ADULT DENTAL 230 [place] [address] Zhanna Hernandez documented as of this encounter Visit Diagnoses Not on filedocumented in this encounter Care Teams Music Coordinator Relationship Specialty Start Date End Date Aaron Pisano MD 230 [place] [address] PCP - General Internal Medicine 05/10/14 Antonietta Lim Stock TakerCompensation And Benefits Analyst 09/18/24 documented as of this encounter
--- OUTSIDE RECORDS SUMMARY | 2024-10-04 13:22 | XMS_ITS | Encounter Summary ---
Demographics Address [address] [place] [address] [address] [place] [address] Work Phone Home Phone Mobile Phone Email Address Preferred Language en Marital Status Single Yazdanism Affiliation Unknown Race White Ethnic Group or Author Organization [employer] Address [address] [place] [address] 7 [place] [address] Care Team Providers Care Cargo Services Coordinator Name Role Phone Aaron Pisano MD Primary Care Provide r Reason for Visit * Reason Comments Med Refill Encounter Details Date Type Department Care Team ([facility] Contact Info) Description 04/18/2023 Refill [facility] MEDICINE 230 [place] [address] Aaron Pisano MD 230 [place] [address] Chronic bilateral low back pain without sciatica [...] Upcoming Encounters Date Type Department Care Team ([facility] Contact Info) Description 10/18/2024 11:00 AM EDT Clinical Support [facility] CHC MED & PEDS 505 [place], [place] [phone] Altagracia Mancilla, GRACIELA 505 [place] [address] 01/31/2025 10:00 AM EDT Office Visit [facility] ADULT DENTAL 230 [place] [address] Zhanna Hernandez documented as of this encounter Goals Goal Patient Goal Type Associated Problems Recent Progress Patient-Stated? Author Blood Pressure < 140/90 Blood Pressure 118/64( 025 2:32 PM EST) No Giovanna Banks, SohamD documented as of this encounter Visit Diagnoses Diagnosis Chronic bilateral low back pain without sciatica documented in this encounter Care Teams Cargo Services Coordinator Relationship Specialty Start Date End Date Aaron Pisano MD 230 [place] [address] PCP - General Internal Medicine 05/10/14 Antonietta Lim Flag DecoratorRetail Sales Associate Seasonal 09/18/24 documented as of this encounter
--- OUTSIDE RECORDS SUMMARY | 2024-10-04 13:22 | XMS_ITS | Encounter Summary ---
Demographics Address [address] [place] [address] [address] [place] [address] Work Phone Home Phone Mobile Phone Email Address Preferred Language en Marital Status Single Pentecostalism Affiliation Unknown Race White Ethnic Group or Author Organization [employer] Address [address] [place] [address] 7t [place] [address] Care Team Providers Care Naturopathic Oncology Provider Name Role Phone Aaron Pisano MD Primary Care Provide r Reason for Visit * Reason Onset Date Comments Nurse Triage 02/21/2023 Encounter Details Date Type Department Care Team ([facility] st Contact Info) Description 02/21/2023 Telephone [facility] MEDICINE 230 [place] [address] Aaron Pisano MD 230 [place] [address] Nurse Triage Social History Tobacco Use Types [...] 4:45 PM EDT Please assist with obtaining [facility] ED discharge notes for 02/10/23. This report writer does not have [employer] access. Pt sent to ER after visit with [facility]. * Telephone Encounter - Leora Cmapbell RN - 02/21/2023 4:39 PM EDT Call to Zee Villanueva , reports having vomiting since seen at [facility] ER. Per pt was given abx for UTI and zofran. Per pt completed abx. Per pt continues to have vomiting. 5 episodes of vomiting in last 24 hours. No blood or green bile in vomit. Pt still taking chantix. Pt offered WIC tomorrow. Pt declines needs appt 3 days out for PT1. Agrees to visit with [place] team provider. Reviewed home care advise and reasons to call back. Future Appointments Date Time Provider Department Center 02/25/2023 9:30 AM DUY Taveras MEDICINE [facility] 03/21/2023 1:00 PM Giovanna Payne PharmD MEDICINE [facility] 04/27/2023 3:00 PM Aniya Anderson RN MEDICINE [facility] Multiple (2) protocols were used on this [...] accepted this outcome Please contact pt at [phone] Pt was at [facility] hospital on 02/10/2023 for same symptoms. documented in this encounter Plan of Treatment Upcoming Encounters Date Type Department Care Team (Late st Contact Info) Description 10/18/2024 11:00 AM EDT Clinical Support [facility] CHC MED & PEDS 505 [place] [address] Altagracia Mancilla, GRACIELA 505 [place] [address] 01/31/2025 10:00 AM EDT Office Visit [facility] ADULT DENTAL 230 [place] [address] Zhanna Hernandez documented as of this encounter Visit Diagnoses Not on filedocumented in this encounter Care Teams Naturopathic Oncology Provider Relationship Specialty Start Date End Date Aaron Pisano MD 230 [place] [address] PCP - General Internal Medicine 05/10/14 Antonietta Lim Corporate Logistics ManagerElectronic Gaming Device Supervisor 09/18/24 documented as of this encounter
--- OUTSIDE RECORDS SUMMARY | 2024-10-04 13:22 | XMS_ITS | Encounter Summary ---
Demographics Address [address] [place] [address] [address] [facility] [place] [address] Work Phone Home Phone Mobile Phone Email Address Preferred Language en Marital Status Single Mu-Ism Affiliation Unknown Race White Ethnic Group or Author Organization [employer] [facility] Address [address] [place] [address] 7t [place] [address] Care Team Providers Care Training Systems Officer Name Role Phone Aaron Pisano MD Primary Care Provide r Encounter Details Date Type Department Care Team (Latest Contact Info) Description 11/10/2020 Abstract [facility] CONVERSIONS Dental, Provider, DDS Social History [...] Description 10/18/2024 11:00 AM EDT Clinical Support [facility] CHC MED & PEDS 505 [place] [address] Altagracia Mancilla, GRACIELA 505 [place] [address] 01/31/2025 10:00 AM EDT Office Visit [facility] ADULT DENTAL 230 [place] [address] Zhanna Hernandez documented as of this encounter Visit Diagnoses Not on filedocumented in this encounter Care Teams Training Systems Officer Relationship Specialty Start Date End Date Aaron Pisano MD 230 [place], [place] [phone] PCP - General Internal Medicine 05/10/14 Antonietta Lim DrainmanRoom Service Food Service Attendant 09/18/24 documented as of this encounter
--- OUTSIDE RECORDS SUMMARY | 2024-10-04 13:22 | XMS_ITS | Encounter Summary ---
Demographics Address [address] [place] [address] [address] [place] [address] Work Phone Home Phone Mobile Phone Email Address Preferred Language en Marital Status Single Orthodox Affiliation Unknown Race White Ethnic Group or Author Organization [employer] Address [address] [place] [address] [address] [place] [address] Care Team Providers Care Squad Boss Name Role Phone Aaron Pisano MD Primary Care Provide r Reason for Visit * Reason Comments Med Refill Encounter Details Date Type Department Care Team ([facility] Contact Info) Description 03/15/2023 Refill [facility] MEDICINE 230 [place] [address] Aaron Pisano MD [address] [place] [address] Smoker Social History Tobacco Use Types Packs/Day [...] Upcoming Encounters Date Type Department Care Team ([facility] Contact Info) Description 10/18/2024 11:00 AM EDT Clinical Support [facility] CHC MED & PEDS [address] [place] [address] Altagracia Mancilla, GRACIELA 505 [place] [address] 01/31/2025 10:00 AM EDT Office Visit [facility] ADULT DENTAL 230 [place] [address] Zhanna Hernandez documented as of this encounter Visit Diagnoses Diagnosis Smoker Tobacco use disorder documented in this encounter Care Teams Squad Boss Relationship Specialty Start Date End Date Aaron Pisano MD [address] [place] [address] PCP - General Internal Medicine 05/10/14 Antonietta Lim Drawer InTop Hat Body Maker 09/18/24 documented as of this encounter
--- OUTSIDE RECORDS SUMMARY | 2024-10-04 13:22 | XMS_ITS | Encounter Summary ---
Demographics Address [address] [place] [address] [address] [place] [address] Work Phone Home Phone Mobile Phone Email Address Preferred Language en Marital Status Single Sikhism Affiliation Unknown Race White Ethnic Group or Author Organization [employer] Address [address] [place] [address] 7t [place] [address] Care Team Providers Care Coal Carrier Name Role Phone Aaron Pisano MD Primary Care Provide r Reason for Visit * Reason Onset Date Comments Med Refill 11/16/2022 Encounter Details Date Type Department Care Team ([facility] st Contact Info) Description 11/16/2022 Telephone [facility] MEDICINE 230 [place] [address] Aaron Pisano MD 230 [place] [address] Med Refill Social History Tobacco Use Types [...] MG immediate release tablet Please sent to [facility] [place], [place] - 230 [facility] documented in this encounter Plan of Treatment Upcoming Encounters Date Type Department Care Team (Late st Contact Info) Description 10/18/2024 11:00 AM EDT Clinical Support [facility] MED & PEDS 505 [place] [address] Altagracia Mancilla, GRACIELA 505 [place] [address] 01/31/2025 10:00 AM EDT Office Visit [facility] ADULT DENTAL 230 [place] [address] Zhanna Hernandez documented as of this encounter Visit Diagnoses Not on filedocumented in this encounter Care Teams Coal Carrier Relationship Specialty Start Date End Date Aaron Pisano MD [address] [place] [address] PCP - General Internal Medicine 05/10/14 Antonietta Lim Alpine PatrollerLead Printer 09/18/24 documented as of this encounter
--- OUTSIDE RECORDS SUMMARY | 2024-10-04 13:22 | XMS_ITS | Encounter Summary ---
Demographics Address [address] [place] [address] [address] [place] [address] Work Phone Home Phone Mobile Phone Email Address Preferred Language en Marital Status Single Sabianist Affiliation Unknown Race White Ethnic Group or Author Organization [employer] Address [address] [place] [address] 7t [place] [address] Care Team Providers Care Sfdc Consultant Name Role Phone Aaron Pisano MD Primary Care Provide r Reason for Visit * Reason Onset Date Comments Reschedule 03/01/2024 Encounter Details Date Type Department Care Team ([facility] Contact Info) Description 03/01/2024 Telephone [facility] MEDICINE 230 [place] [address] Aaron Pisano MD [address] [place] [address] Reschedule Social History Tobacco Use Types Packs/Day [...] a call back in order to r/s PHLEBOTOMY SUPERVISOR appt documented in this encounter Plan of Treatment Upcoming Encounters Date Type Department Care Team (Late st Contact Info) Description 10/18/2024 11:00 AM EDT Clinical Support [facility] CHC MED & PEDS 505 [place] [address] Altagracia Mancilla, RN 505 [place] [address] 01/31/2025 10:00 AM EDT Office Visit [facility] ADULT DENTAL 230 [place] [address] Zhanna Hernandez documented as of this encounter [...] documented as of this encounter Care Teams Sfdc Consultant Relationship Specialty Start Date End Date Aaron Pisano MD [address] [place] [address] PCP - General Internal Medicine 05/10/14 Antonietta Lim Fish SeinerAse Certified Technician 09/18/24 documented as of this encounter
--- OUTSIDE RECORDS SUMMARY | 2024-10-04 13:22 | XMS_ITS | Encounter Summary ---
Demographics Address [address] [place] [address] [address] [place] [address] Work Phone Home Phone Mobile Phone Email Address Preferred Language en Marital Status Single Restorationist Affiliation Unknown Race White Ethnic Group or Author Organization [email or web address] Address [address] [place] [address] 7t [place] [address] Care Team Providers Care Decaler Name Role Phone Aaron Pisano MD Primary Care Provide r Reason for Visit * Reason Onset Date Comments Med Refill 09/10/2024 Encounter Details Date Type Department Care Team ([facility] st Contact Info) Description 09/10/2024 Refill [facility] MEDICINE 230 [place] [address] Aaron Pisano MD [address] [place] [address] Diarrhea in adult patient Social History Tobacco [...] Description 10/18/2024 11:00 AM EDT Clinical Support [facility] CHC MED & PEDS 505 [place] [address] Altagracia Mancilla, GRACIELA 505 [place] [address] 01/31/2025 10:00 AM EDT Office Visit [facility] ADULT DENTAL [address] [place] [address] Zhanna Hernandez documented as of this encounter [...] documented as of this encounter Care Teams Decaler Relationship Specialty Start Date End Date Aaron Pisano MD [address] [place] [address] PCP - General Internal Medicine 05/10/14 documented as of this encounter
--- OUTSIDE RECORDS SUMMARY | 2024-10-04 13:22 | XMS_ITS | Encounter Summary ---
Demographics Address [address] [place] [address] [address] [place] [address] Work Phone Home Phone Mobile Phone Email Address Preferred Language en Marital Status Single Denominational Affiliation Unknown Race White Ethnic Group or Author Organization [employer] Address [address] [facility] 7t [place] [address] Care Team Providers Care Rn Military Name Role Phone Aaron Pisano MD Primary [...] Description 09/06/2024 2:30 PM EST Office Visit [facility] MEDICINE 230 [place], [place] [phone] Aaron Pisano MD [address] [place], [place] [phone] Routine physical examination (Primary Dx); Routine health [...] most recently seen by Dr Rodas at [facility] 06/15/2024 who recommended PRN follow up Mild [...] most recently seen by Dr Rodas at [facility] 06/15/2024 who recommended PRN follow up * [...] Description 10/18/2024 11:00 AM EDT Clinical Support [facility] CHC MED & PEDS 505 [place] [address] Altagracia Mancilla, GRACIELA 505 [place] [address] 01/31/2025 10:00 AM EDT Office Visit [facility] ADULT DENTAL 230 [place] [address] Zhanna Hernandez documented as of this encounter [...] documented as of this encounter Care Teams Rn Military Relationship Specialty Start Date End Date Aaron Pisano MD [address] [place] [address] PCP - General Internal Medicine 05/10/14 documented as of this encounter
--- OUTSIDE RECORDS SUMMARY | 2024-10-04 13:23 | XMS_ITS | Encounter Summary ---
Demographics Address [address] [place] [address] [address] [place] [address] Work Phone Home Phone Mobile Phone Email Address Preferred Language en Marital Status Single Moravian Affiliation Unknown Race White Ethnic Group or Author Organization [employer] Address [address] [facility] 7t [place] [address] Care Team Providers Care Machine Precision Etcher Name Role Phone Aaron Pisano MD Primary Care Provide r Reason for Visit * Reason Comments Med Refill Encounter Details Date Type Department Care Team ([facility] st Contact Info) Description 07/07/2023 Refill [facility] MEDICINE [address] [place], [place] [phone] Aaron Pisano MD [address] [place], [place] [phone] Social History Tobacco Use Types Packs/Day Years Used Date Smoking Tobacco: Former Cigarettes Passive Smoke Exposure: Never Smokeless Tobacco: Never Alcohol Use Standard Drinks/Week Comments Never 0 (1 standard drink = 0.6 oz pur e alcohol) Housing Stability Answer Date Recorded What is your housing situation today? I do not have housing (Staying with others, in a hotel, in a longterm, living outside on the street, on a [...] Description 10/18/2024 11:00 AM EDT Clinical Support [facility] [address] [place] [address] Altagracia Mancilla, RN [address] [place] [address] 01/31/2025 10:00 AM EDT Office Visit [facility] ADULT DENTAL [address] [place] [address] Zhanna Hernandez documented as of this encounter Goals Goal Patient Goal Type Associated Problems Recent Progress Patient-Stated? Author Blood Pressure < 140/90 Blood Pressure 118/64( 025 2:32 PM EST) No Giovanna Banks, SohamD documented as of this encounter Visit Diagnoses Not on filedocumented in this encounter Care Teams Machine Precision Etcher Relationship Specialty Start Date End Date Aaron Pisano MD [address] [place] [address] PCP - General Internal Medicine 05/10/14 Antonietta Lim Diagnostic Radiologic TechnologistMilk Tester 09/18/24 documented as of this encounter
--- OUTSIDE RECORDS SUMMARY | 2024-10-04 13:23 | XMS_ITS | Encounter Summary ---
Demographics Address [address] [place] [address] [address] [place] [address] Work Phone Home Phone Mobile Phone Email Address Preferred Language en Marital Status Single Confucianist Affiliation Unknown Race White Ethnic Group or Author Organization [email or web address] Address [address] [facility] 7t [place] [address] Care Team Providers Care Superintendent Institution Name Role Phone Aaron Pisano MD Primary Care Provide r Reason for Visit * Reason Comments Care Coordination ICP CP Care Coordina tor Encounter Details Date Type Department Care Team ([facility] st Contact Info) Description 09/18/2024 Telephone [facility] MEDICINE [address] [place] [address] Aaron Pisano MD [address] [place] [address] Care Coordination (ICP CP Script Reader ) Social History Tobacco Use Types Packs/Day [...] has received and reviewed Care Plan from [facility]: Script Reader: Antonietta Lim Contact Information: [phone] Care Plan scanned into patient's EHR and notification sent to PCP. documented in this encounter Plan of Treatment Upcoming Encounters Date Type Department Care Team (Late st Contact Info) Description 10/18/2024 11:00 AM EDT Clinical Support [facility] MED & PEDS 505 [place] [address] Altagracia Maniclla, GRACIELA 505 [place] [address] 01/31/2025 10:00 AM EDT Office Visit [facility] ADULT DENTAL [address] [place] [address] Zhanna Hernandez documented as of this encounter [...] documented as of this encounter Care Teams Superintendent Institution Relationship Specialty Start Date End Date Aaron Pisano MD [address] [place] [address] PCP - General Internal Medicine 05/10/14 Antonietta Lim Transportation InspectorTaper Printed Circuit Layout 09/18/24 documented as of this encounter
--- OUTSIDE RECORDS SUMMARY | 2024-10-04 13:23 | XMS_ITS | Clinical Summary ---
Demographics Address [address] [place] [address] [address] [place] [address] Work Phone Home Phone Mobile Phone Email Address Preferred Language en Marital Status Single Religion Affiliation Unknown Race White Ethnic Group or Author Organization [employer] Address [address] [place] [address] 7t [place] [address] Care Team Providers Care Recreation Therapy Director Name Role Phone Aaron Pisano MD [...] Prednisone. She is under the care of Curling Machine Operator Dr Newberry. She is on Prednisone 2 [...] of a psychotherapist and a psychiatrist. At [facility] Pt is no longer on Abilify nor Clonidine. She is now on Geodon Assessment & Plan (08/03/2022 9:22 AM EST): Pt under the care of a psychotherapist and a psychiatrist. At [facility] started on Abilify 7.5 mg po [...] most recently seen by Dr Rodas at [facility] 06/15/2024 who recommended PRN follow up Assessment [...] (08/23/2023 1:51 PM EST): Previously referred to [facility] Comprehensive weight management program. Seen twice, they prompter to discuss with her mental health provider her eating habits before they would consider accepting her into the program Assessment & Plan (12/30/2022 3:28 PM EDT): Previously referred to [facility] Comprehensive weight management program Assessment & Plan (08/03/2022 1:48 PM EST): Referred to [facility] Comprehensive weight management program Genital herpes simplex [...] EST): Seen in the past by an Conduit Mechanic (Dr. Dozier) Under the care of Clare Carlin The last US on record done at [facility] 01/2019 showed a hypoechoic well circumscribed solid [...] Type Department Care Team Description 09/20/2024 Refill [facility] MEDICINE [address] [place] [address] Aaron Pisano MD 09/18/[address] [address] Aaron Pisano MD Care Coordination ([facility] CP Plant Physiologist ) 09/11/2024 Refill [facility] MED & PEDS [address] [place], [place] [phone] Aaron Pisano MD 09/10/2024 Refill [facility] MEDICINE [address] [place], [place] [phone] Aaron Pisano MD Diarrhea in adult patient 09/06/2024 2:30 PM EST Office Visit [address] [phone] Aaron Pisano MD Routine physical examination (Primary Dx); Routine health maintenance; Positive LUCRETIA (antinuclear antibody); Mild intermittent asthma without complication; Chronic midline low back pain without sciatica; Breast cyst, right 09/06/2024 Travel 08/27/2024 Orders Only GENERIC EXTERNAL DATA DEPARTMENT Provider, Generic External Data 08/24/2024 Patient Outreach [address] [phone] Aaron Pisano MD Care Coordination ([facility] outreach for SDOH PT-1 and food needs-referral completed /) 08/24/[address] [phone] Aaron Pisano MD Chart Prep 08/24/2024 Patient Outreach [address] [phone] Aaron Pisano MD Pre-visit Planning (SDOH Screening posible and Tobacco screening negative) 08/23/[address] [address] Aaron Pisano MD Primary hypertension; Vasculitis (CMS/HCC) 08/21/2024 3:00 PM EST Office Visit [facility] ADULT DENTAL [address] [place], [place] [address] Miki Sarkar DDS Abfraction (Primary Dx) 08/21/2024 Refill [facility] MEDICINE [address] [place] [address] Aaron Pisano MD Cough in adult patient 08/20/2024 Travel 08/16/2024 Refill [facility] MEDICINE [address] [place] [address] Aaron Pisano MD Intractable vomiting with nausea; Chronic bilateral low back pain without sciatica 08/12/2024 Refill [facility] MED[facility]INE [address] [place] [address] Lucretia Wilkes MD Nicotine withdrawal; Smoker 08/12/2024 Refill [facility] MEDICINE [address] [place] [address] Aaron Pisano MD Smoker 08/12/2024 Refill [facility] MEDICINE [address] [place] [address] Aaron Pisano MD 08/02/2024 Refill [facility] MEDICINE [address] [place] [address] Aaron Pisano MD Chronic midline low back pain without sciatica 08/02/2024 Telephone [facility] MEDICINE [address] [place] [address] Aaron Pisano MD Med Refill 07/26/2024 11:00 AM EST Office Visit [facility] ADULT DENTAL [address] [place] [address] Nati Beckman Dental calculus (Primary Dx); Dental plaque; Dental caries 07/24/2024 Telephone [facility] MEDICINE [address] [place] [address] Aaron Pisano MD Medication Question 07/24/2024 Refill [facility] MEDICINE [address] [place] [address] Aaron Pisano MD 07/16/2024 10:00 AM EST Telemedicine [facility] [address] [facility] [place] [address] Altagracia Mancilla RN Chronic bilateral low back pain without sciatica 07/16/2024 Telephone [facility] [address] [facility] [place] [address] Altagracia Mancilla RN 07/16/2024 Travel 07/14/2024 Refill [facility] [address] [facility] [place] [address] Katherine Mitchell MD Diarrhea in adult patient 07/09/2024 Travel from Last 3 Months Immunizations Name Administration [...] housing situation today? I have ella sing 08/24/[address] you li [...] Encounters Date Type Department Care Team ([facility] st Contact Info) Description 10/18/2024 11:00 AM EDT Clinical Support [facility] [address] [facility] [place] [address] Altagracia Mancilla, RN 505 [place] [address] 01/31/2025 10:00 AM EDT Office Visit [facility] ADULT DENTAL [address] [place] [address] Hernandez Zhanna Health Maintenance Due Date Last Done Comments [...] 06/05/2025 06/05/2024 Depression Screening 06/05/2025 06/05/2024, 06/05/20 24 Tobacco Screening 08/21/2025 08/21/2024 SDOH Screening 08/24/2025 [...] EST) Vitamin D, 25-OH, D2 <4 ng/mL [facility] Comment:This test was susanna diana and its analytical performancecharacteristics have been determined by [facility] [place], [place]. It hasnot been cleared or approved by the U.S. Food and DrugAdministration. This assay has been validated pursuantto the CLIA regulations and is used for clinicalpurposes.THIS TEST WAS PERFORMED AT:[id number] [place] [address]NUPINTAKIKO CARRANZA MD,PHD Vitamin D, 25-OH, D3 56 ng/mL [facility] Comment:This test was develo ped and its analytical performancecharacteristics have been determined by [facility] [place], [place]. It hasnot been cleared or approved by the U.S. Food and DrugAdministration. This assay has been validated pursuantto the CLIA regulations and is used for clinicalpurposes. Vitamin D, 25-OH, Total 56 30 - 100 ng/mL [facility] Comment:Vitamin D, 25-Hydrox y reports [...] = 30 ng/mL.For additional information, please refer tohttp://education.KDW.finalsite/faq/HCZ841(This link is being provided for informational/educational purposes only.) 08/27/2024 11:3 0 AM EST 08/27/2024 11:30 AM EST us Generic External Data Provider LAB BLOOD ORDERAB LES Final Result [facility] [address] [place] [phone] * Vitamin B12 (Cobalamin) and Folate Panel, Serum (08/27/2024 11:30 AM EST) Vitamin B12 427 200 - 900 pg/mL [facility] Comment:NORMAL 200-900 PG/ML INDETERMINATE 160-199 PG/ML DEFICIENT < 160 PG/ML Folate 5.0 > or = 4.0 ng/mL [facility] Comment:Reference Values:> o r = 4.0 ng/mL< 4.0 ng/mL suggests folate deficiency Methotrexate, aminopterin and folinic acid(leucovorin) are chemotherapeutic agents whose molecularstructures are similar to folate; therefore, the Architectfolate assay cannot be used for patients using these drugs. 08/27/2024 11:3 0 AM EST 08/27/2024 11:30 AM EST Generic External Data Provider LAB BLOOD ORDERAB LES Final Result Performing Organization Address [facility] Co de Phone Number [facility] [address] [place] [phone] * TSH with Reflex to Free T4 (08/27/2024 11:30 AM EST) TSH reflex Free T4 1.62 0.32 - 4.0 uIU/mL [facility] 08/27/2024 11:3 0 AM EST 08/27/2024 11:30 AM EST Generic External Data Provider LAB BLOOD ORDERAB LES Final Result Performing Organization Address [facility]/ZIP Co de Phone Number [facility] [address] [place] [phone] * Tissue Transglutaminase Antibody, IgA (08/27/2024 11:30 AM EST) Transglutaminase IgA <1.0 U/mL [facility] Comment:Value Interpretation ----- <15.0 Antibody not detected> or = 15.0 Antibody detectedTHIS TEST WAS PERFORMED AT:[employer] [place] [id number] REDMOND MD 08/27/2024 11:3 0 AM EST 08/27/2024 11:30 AM EST us Generic External Data Provider LAB BLOOD ORDERAB LES Final Result Performing Organization Address City/[facility]/ZIP Co de Phone Number [facility] [address] [place] [address] [phone] * (ABNORMAL) CBC (08/27/2024 11:30 AM EST) White Blood Count 12.9(H) 4.8 - 10.8 X10*3/uL [facility] Red Blood Count 4.82 4.20 - 5.50 X10*6/uL [facility] Hemoglobin 12.9 12.0 - 16.0 g/dl [facility] Hematocrit 40.4 37.0 - 47.0 % [facility] Mean Corpuscular Volume 83.8 80.0 - 98.0 fL [facility] Mean Corpuscular Hemoglobin 26.8(L) 27.0 - 33.0 pg [facility] Mean Corpuscular HGB Conc 31.9 31.0 - 35.0 g/dl [facility] Red Cell Distribution Width 14.8 11.0 - 16.0 % [facility] Platelet Count 368 160 - 400 X10*3/uL [facility] Mean Platelet Volume 10.3 9.4 - 12.3 fL [facility] NRBC Pct Auto 0.0 0.0 - 0.2 /100WBC [facility] NRBC Abs Auto 0.000 0.0 - 0.012 X10*3/uL [facility] 08/27/2024 11:3 0 AM EST 08/27/2024 11:30 AM EST us Generic External Data Provider LAB BLOOD ORDERAB LES Final Result Performing Organization Address [facility]/ZIP Co de Phone Number [facility] [address] [place] [phone] * (ABNORMAL) C-reactive Protein (08/27/2024 11:30 AM EST) Pathologist [facility] C Reactive Protein 2.22(H) < or = 0.50 mg/dL [facility] 08/27/2024 11:3 0 AM EST 08/27/2024 11:30 AM EST Generic External Data Provider LAB BLOOD ORDERAB LES Final Result Performing Organization Address City/[facility]/ZIP Co de Phone Number [facility] [address] [place] [phone] * Lipase (08/27/2024 11:30 AM EST) Pathologist [facility] Lipase 14 8 - 78 U/L [facility] 08/27/2024 11:3 0 AM EST 08/27/2024 11:30 AM EST Generic External Data Provider LAB BLOOD ORDERAB LES Final Result Performing Organization Address [facility] Co de Phone Number [facility] [address] [place] [phone] * Comprehensive Metabolic Panel (08/27/2024 11:30 AM EST) Pathologist [facility] Sodium 141 135 - 145 mmol/L [facility] Potassium 3.8 3.3 - 5.1 mmol/L [facility] Chloride 104 96 - 108 mmol/L [facility] Carbon Dioxide 27 22 - 29 mmol/L [facility] Anion Gap 14 12 - 20 [facility] Urea Nitrogen (BUN) 15 9 - 16 mg/dL [facility] Creatinine, Serum 0.80 0.5 - 1.4 mg/dL [facility] Estimated Glomerular Filt Rate >60 [facility] Comment:Chronic Kidney Disea se: Estimated GFR < 60 mL/min/1.12t3Ngdjey Kidney Disease: Estimated GFR < 15 mL/min/1.73m2 Glucose 75 60 - 115 mg/dL [facility] Calcium 9.1 8.4 - 10.2 mg/dL [facility] Bilirubin, Total 0.4 0.0 - 1.0 mg/dL [facility] Aspartate Amino Transferase 19 5 - 31 U/L [facility] Alanine Aminotransferase 10 0 - 31 U/L [facility] Total Protein 8.0 6.5 - 8.0 g/dL [facility] Albumin Level 4.2 3.5 - 5.0 g/dL [facility] Alkaline Phosphatase 102 39 - 117 U/L [facility] 08/27/2024 11:3 0 AM EST 08/27/2024 11:30 AM EST us Generic External Data Provider LAB BLOOD ORDERAB LES Final Result [facility] [address] [place] [phone] * (ABNORMAL) Lipid Panel, Standard (04/30/2024 2:25 PM EDT) Triglycerides 173(H) <150 mg/dL [facility] Comment:Desirable Triglyceri de: less than 150 mg/dLBorderline High Triglyceride 150-199 mg/dLHigh Triglyceride: 200-499 mg/dLVery High Triglyceride: greater than or equal to 5OO mg/dL Cholesterol 213(H) <200 mg/dL [facility] Comment:Desirable Cholestero l: less than 200 mg/dLBorderline High Cholesterol: 200-239 mg/dLHigh Cholesterol: greater than 239 mg/dL LDL Cholesterol Calculated 134(H) <100 mg/dL [facility] Comment:Desirable LDL: less than 100 mg/dLNear Optimal/Above Optimal LDL: 110- 129 mg/dLBorderline High LDL: 130-159 mg/dLHigh LDL: 160-189 mg/dLVery High LDL: greater than or equal to 190 mg/dL HDL Cholesterol 45 >40 mg/dL [facility] Comment:Desirable HDL: great er than 40 mg/dL Note: This HDL assay may give artificially low results in patients with liver disease. Blood Venous blood specimen / Unknown 04/30/2024 2:25 PM EDT 04/30/2024 4:57 PM EDT us Aaron Harris MD LAB BLOOD ORDERABLES Final Result [facility] [address] [facility] [place] [address] [phone] * BI Mammogram Screening Tomosynthesis Bilateral (01/26/2024 1:45 PM EDT) Anatomical Region Laterality Modality Breast Bilateral Mammography 01/26/2024 1:45 PM EDT Narrative 02/24/2024 2:20 PM EDT ? [facility] ? [address] ?[place] [address] ? Mammography Report ? Signed ? Patient: Villanueva,Zee A ?MR#: [id number] ?? [id number] ? : 1975 ?Acct:[id number] ? Age/Sex: 48 / F ?ADM Date: 01/26/24 ? Loc: HO.MAMMO ? Attending Dr: Aaron Carcamo MD ? Ordering Physician: Aaron Carcamo MD ?Resu ?? lts: 1Negative ? Date of Service: 01/26/24 ?Follow Up: 1 Year From Orig ?? inal Mammogram ? Procedure(s): MM tomosynthesis screening BI ?? Accession Number(s): [id number] ? cc: Aaron Carcamo MD ? EXAMINATION: ?? MM SCREENING DIGITAL BREAST TOMOSYNTHESIS, BILATERAL ? CLINICAL INFORMATION: ? Screening. Asymptomatic. ? COMPARISON: ?? Mammography: This study is compared with prior exams dating back to ?? 2019. ?? . ?? TECHNIQUE: ?? Digital breast [...] by Nicole Thayer MD in OV> ? 02/24/24 1417 ? DD/ 1345 ? TD/TT: ? Vp Scientific Affairs: ? Procedure Note Phil, Image - 02/24/2024 [facility] [address] [place] [address] [place], [place] [address] Mammography Report Signed Patient: Zee Villanueva [facility]#: [id number] : 1975Acct:[id number] Age/Sex: 48 / FADM Date: 01/26/24 Loc: [facility] Attending Dr: Aaron Carcamo MD Ordering Physician: Aaron Carcamo MDResu lts: 1Negative Date of Service: 01/26/24Follow Up: 1 Year From Orig ina Mammogram Procedure(s): MM tomosynthesis screening BI Accession Number(s): [id number] cc: Aaron Carcamo MD EXAMINATION: MM SCREENING [...] in OV> 02/24/24 1417 DD/ 1345 TD/TT: Vp Scientific Affairs: us Aaron Harris MD IMG BI PROCEDURES Fin al Result * HEPATITIS PANEL, ACUTE W/REFLEX TO CONFIRMATION (03/06/2021 5:09 PM EDT) HEPATITIS A IGM NON-REACT JANIA NON-REACT JANIA [facility] Comment: ?? For additional information, please refer to ?? http://education.Symetrica/faq/WXU664 ?? (This link is being provided for informational/ educational purposes only.) ?? HEPATITIS B CORE ANTIBODY (IGM) NON-REACT JANIA NON-REACT JANIA [facility] HEPATITIS B SURFACE ANTIGEN NON-REACT JANIA NON-REACT JANIA [facility] HEPATITIS C ANTIBODY NON-REACT JANIA NON-REACT JANIA [facility] INDEX 0.02 <1.00 [facility] Comment: ?? HCV antibody was non-reactive. There is no laboratory ?? evidence of HCV infection. ?? In most cases, no further action is required. However, if recent HCV exposure is suspected, a test for HCV RNA (test code 71965) is suggested. ?? For additional information please refer to http://education.Symetrica/faq/FQA91q3 (This link is being provided for informational/ educational purposes only.) ?? 03/06/2021 5:09 PM EDT Sumi [facility] HISTORICAL/NON ORDERABLE LABS Fi nal Result Performing Organization Address [facility] Phone Number [facility] [address] * HIV AB/AG (02/26/2020 1:03 PM EDT) [facility] HIV AG/AB NONREACTIVE NR [facility] ON LAB [...] detection of this assay. ?? [employer] HIV Ag/Ab Combo assay result and supplemental assay results should be interpreted in conjunction with the patient's clinical presentation, history and other laboratory results. ??If the results are inconsistent with clinical evidence, additional testing is suggested to confirm the result. 02/26/2020 1:03 PM EDT Aaron Harris MD HISTORICAL/NON ORDERA BLE LABS Final Result Performing Organization Address [facility] Phone Number [facility] [address] from Last 3 Months or Most Recently Relevant to Health Maintenance Insurance * Guarantor: Villanueva, Zee A Account Type Relation to Patient Date of Phone Billing Address Personal/Family Self [address] [place] [address] [facility] ST[facility] ADULT * Guarantor: Zee Villanueva Account Type Relation to Patient Date of Phone Billing Address Personal/Family Self [address] [place] [address] * Guarantor: Zee Villanueva A Account Type Relation to Patient Date of Phone Billing Address Personal/Family Self [address] [place] [address] * Guarantor: Zee Villanueva A Account Type Relation to Patient Date of Phone Billing Address Personal/Family Self [address] [place] [address] Care Teams Recreation Therapy Director Relationship Specialty Start Date End Date Aaron Pisano MD [address] [place] [address] PCP - General Internal Medicine 05/10/14 Antonietta Lim Dry Food Products MixerDental Hygiene Administrative Assistant 09/18/24
--- OUTSIDE RECORDS SUMMARY | 2024-10-04 13:23 | XMS_ITS | Encounter Summary ---
Demographics Address [address] [place] [address] [address] [place] [address] Work Phone Home Phone Mobile Phone Email Address Preferred Language en Marital Status Single Temple Affiliation Unknown Race White Ethnic Group or Author Organization [employer] Address [address] [place] [address] 7t [place] [address] Care Team Providers Care Key Bed Installer Name Role Phone Aaron Pisano MD Primary Care Provide r Reason for Visit * Reason Onset Date Comments Med Refill 08/12/2024 Encounter Details Date Type Department Care Team ([facility] st Contact Info) Description 08/12/2024 Refill [facility] MEDICINE [address] [place] [address] Aaron Pisano MD 230 [place] [address] Social History Tobacco Use Types Packs/Day Years [...] the past 12 months, has t he [employer], gas, oil or water company threatened to [...] AM EDT Clinical Support [facility] CHC MED & PEDS 505 [place] [address] Altagracia Mancilla, GRACIELA 505 [place] [address] 01/31/2025 10:00 AM EDT Office Visit [facility] ADULT DENTAL 230 [place] [address] Zhanna Hernandez documented as of this encounter [...] documented as of this encounter Care Teams Key Bed Installer Relationship Specialty Start Date End Date Aaron Pisano MD [address] [place] [address] PCP - General Internal Medicine 05/10/14 Antonietta Lim Traffic InvestigatorHelicopter Mechanic 09/18/24 documented as of this encounter
--- OUTSIDE RECORDS SUMMARY | 2024-10-04 13:23 | XMS_ITS | Encounter Summary ---
Demographics Address [address] [place] [address] [address] [place] [address] Work Phone Home Phone Mobile Phone Email Address Preferred Language en Marital Status Single Restorationism Affiliation Unknown Race White Ethnic Group or Author Organization [employer] Address [address] [place] [address] 7t [place] [address] Care Team Providers Care Fuel Quality Tech Name Role Phone Aaron Pisano MD Primary Care Provide r Reason for Visit * Reason Comments Med Refill Encounter Details Date Type Department Care Team ([facility] st Contact Info) Description 10/06/2023 Refill [facility] MEDICINE 230 [place], [place] [phone] Aaron Pisano MD 230 [place], [place] [phone] Chronic midline low back pain without sciatica [...] Description 10/18/2024 11:00 AM EDT Clinical Support [facility] CHC MED & PEDS 505 [place] [address] Altagracia Mancilla RN 505 [place] [address] 01/31/2025 10:00 AM EDT Office Visit [facility] ADULT DENTAL 230 [place] [address] Zhanna Hernandez documented as of this encounter [...] documented as of this encounter Care Teams Fuel Quality Tech Relationship Specialty Start Date End Date Aaron Pisano MD 230 [place] [address] PCP - General Internal Medicine 05/10/14 Antonietta Lim Griddle AttendantBoiler Room Operator 09/18/24 documented as of this encounter
--- OUTSIDE RECORDS SUMMARY | 2024-10-04 13:23 | XMS_ITS | Encounter Summary ---
Demographics Address [address] [place] [address] [address] [place] [address] Work Phone Home Phone Mobile Phone Email Address Preferred Language en Marital Status Single Caodaism Affiliation Unknown Race White Ethnic Group or Author Organization [employer] Address [address] [facility] 7t [place] [address] Care Team Providers Care Vendor Representatives Name Role Phone Aaron Pisano MD Primary Care Provide r Reason for Visit * Reason Onset Date Comments Med Refill 06/01/2023 Encounter Details Date Type Department Care Team (Late st Contact Info) Description 06/01/[address] [facility] CHC MED & PEDS [address] [place] [address] Sumi Vang, ANP 230 [place] [address] Chronic midline low back pain without sciatica [...] with others, in a hotel, in a correction, living outside on the street, on a [...] Description 10/18/2024 11:00 AM EDT Clinical Support [facility] CHC MED & PEDS 505 [place] [address] Altagracia Mancilla, GRACIELA 505 [place] [address] 01/31/2025 10:00 AM EDT Office Visit [facility] ADULT DENTAL 230 [place] [address] Zhanna Hernandez documented as of this encounter Goals Goal Patient Goal Type Associated Problems Recent Progress Patient-Stated? Author Blood Pressure < 140/90 Blood Pressure 118/64( 025 2:32 PM EST) No Giovanna Banks, PharmD documented as of this encounter Visit Diagnoses Diagnosis Chronic midline low back pain without sciatica documented in this encounter Care Teams Vendor Representatives Relationship Specialty Start Date End Date Aaron Pisano MD 230 [place] [address] PCP - General Internal Medicine 05/10/14 Antonietta Lim Recovery CollectorShoulder Boner 09/18/24 documented as of this encounter
--- OUTSIDE RECORDS SUMMARY | 2024-10-04 13:23 | XMS_ITS | Encounter Summary ---
Demographics Address [address] [place] [address] [address] [place] [address] Work Phone Home Phone Mobile Phone Email Address Preferred Language en Marital Status Single Hinduism Affiliation Unknown Race White Ethnic Group or Author Organization [employer] Address [address] [facility] 7t [place] [address] Care Team Providers Care Configuration Management Analyst Name Role Phone Aaron Pisano MD Primary Care Provide r Reason for Visit * Reason Comments Med Refill Encounter Details Date Type Department Care Team ([facility] st Contact Info) Description 08/09/2023 Refill [facility] MEDICINE 230 [place], [place] [phone] Sumi Vang, ANP 230 [place] [address] Chronic midline low back pain without sciatica [...] with others, in a hotel, in a custodial, living outside on the street, on a [...] 10/18/2024 11:00 AM EDT Clinical Support [facility] CHC MED & PEDS 505 [place] [address] Altagracia Mancilla, RN 505 [place] [address] 01/31/2025 10:00 AM EDT Office Visit [facility] ADULT DENTAL 230 [place] [address] Zhanna Hernandez documented as of this encounter Goals Goal Patient Goal Type Associated Problems Recent Progress Patient-Stated? Author Blood Pressure < 140/90 Blood Pressure 118/64( 025 2:32 PM EST) No Giovanna Banks, SohamD documented as of this encounter Visit Diagnoses Diagnosis Chronic midline low back pain without sciatica documented in this encounter Care Teams Configuration Management Analyst Relationship Specialty Start Date End Date Aaron Pisano MD 230 [place] [address] PCP - General Internal Medicine 05/10/14 Antonietta Lim Car SalesmanGreensman 09/18/24 documented as of this encounter
--- OUTSIDE RECORDS SUMMARY | 2024-10-04 13:23 | XMS_ITS | Encounter Summary ---
Demographics Address [address] [place] [address] [address] [place] [address] Work Phone Home Phone Mobile Phone Email Address Preferred Language en Marital Status Single Episcopal Affiliation Unknown Race White Ethnic Group or Author Organization [employer] Address [address] [facility] 7t [place] [address] Care Team Providers Care Final Assembly And Packing Supervisor Name Role Phone Aaron Pisano MD Primary Care Provide r Reason for Visit * Reason Comments Med Refill Encounter Details Date Type Department Care Team ([facility] st Contact Info) Description 07/04/2023 Refill [facility] CHC MED & PEDS [address] [place], [place] [phone] Sumi Vang, ANP [address] [facility] [place] [address] Social History Tobacco Use Types Packs/Day Years Used Date Smoking Tobacco: Former Cigarettes Passive Smoke Exposure: Never Smokeless Tobacco: Never Alcohol Use Standard Drinks/Week Comments Never 0 (1 standard drink = 0.6 oz pur e alcohol) Housing Stability Answer Date Recorded What is your housing situation today? I do not have housing (Staying with others, in a hotel, in a fpc, living outside on the street, on a [...] 11:00 AM EDT Clinical Support [facility] MED & PEDS 505 [place] [address] Altagracia Mancilla, RN 505 [place] [address] 01/31/2025 10:00 AM EDT Office Visit [facility] ADULT DENTAL 230 [place] [address] Zhanna Hernandez documented as of this encounter Goals Goal Patient Goal Type Associated Problems Recent Progress Patient-Stated? Author Blood Pressure < 140/90 Blood Pressure 118/64( 025 2:32 PM EST) No Giovanna Banks, SohamD documented as of this encounter Visit Diagnoses Not on filedocumented in this encounter Care Teams Final Assembly And Packing Supervisor Relationship Specialty Start Date End Date Aaron Pisano MD 230 [place] [address] PCP - General Internal Medicine 05/10/14 Antonietta Lim Freight TallierImprovement Nurse 09/18/24 documented as of this encounter
--- OUTSIDE RECORDS SUMMARY | 2024-10-04 13:23 | XMS_ITS | Encounter Summary ---
Demographics Address [address] [place] [address] [address] [place] [address] Work Phone Home Phone Mobile Phone Email Address Preferred Language en Marital Status Single Judaism Affiliation Unknown Race White Ethnic Group or Author Organization [employer] Address [address] [facility] 7t [place] [address] Care Team Providers Care Lease Picker Name Role Phone Aaron Pisano MD Primary Care Provide r Reason for Visit * Reason Comments Med Refill Encounter Details Date Type Department Care Team ([facility] st Contact Info) Description 09/20/2024 Refill [facility] MEDICINE 230 [place] [address] Aaron Pisano MD 230 [place], [place] [phone] Social History Tobacco Use Types Packs/Day Years [...] 11:00 AM EDT Clinical Support [facility] CHC MED & PEDS 505 [place] [address] Altagracia Mancilla, RN 505 [place] [address] 01/31/2025 10:00 AM EDT Office Visit [facility] ADULT DENTAL 230 [place] [address] Zhanna Hernandez documented as of this encounter [...] documented as of this encounter Care Teams Lease Picker Relationship Specialty Start Date End Date Aaron Pisano MD 230 [place] [address] PCP - General Internal Medicine 05/10/14 Antonietta Lim Case LinerPastoral Worker 09/18/24 documented as of this encounter
--- OUTSIDE RECORDS SUMMARY | 2024-10-04 13:23 | XMS_ITS | Encounter Summary ---
Demographics Address [address] [place] [address] [address] [place] [address] Work Phone Home Phone Mobile Phone Email Address Preferred Language en Marital Status Single Episcopalian Affiliation Unknown Race White Ethnic Group or Author Organization [employer] Address [address] [place] [address] 7t [place] [address] Care Team Providers Care Steam Fitter Name Role Phone Aaron Pisano MD Primary Care Provide r Reason for Visit * Reason Onset Date Comments Med Refill 08/02/2024 Encounter Details Date Type Department Care Team ([facility] st Contact Info) Description 08/02/2024 Telephone [facility] MEDICINE 230 [place] [address] Aaron Pisano MD 230 [place] [address] Med Refill Social History Tobacco Use Types [...] the past 12 months, has t he [employer], gas, oil or water company threatened to [...] Upcoming Encounters Date Type Department Care Team ([facility] st Contact Info) Description 10/18/2024 11:00 AM EDT Clinical Support [facility] CHC MED & PEDS 505 [place] [address] Altagracia Mancilla, GRACIELA 505 [place] [address] 01/31/2025 10:00 AM EDT Office Visit [facility] ADULT DENTAL 230 [place] [address] Zhanna Hernandez documented as of this encounter [...] documented as of this encounter Care Teams Steam Fitter Relationship Specialty Start Date End Date Aaron Pisano MD 230 [place] [address] PCP - General Internal Medicine 05/10/14 Antonietta Lim Gauge OperatorRiver Rafting Guide 09/18/24 documented as of this encounter
--- OUTSIDE RECORDS SUMMARY | 2024-10-04 13:23 | XMS_ITS | Encounter Summary ---
Demographics Address [address] [place] [address] [address] [place] [address] Work Phone Home Phone Mobile Phone Email Address Preferred Language en Marital Status Single Yarsanism Affiliation Unknown Race White Ethnic Group or Author Organization [employer] Address [address] [place] [address] 7t [place] [address] Care Team Providers Care Consulting Engineer Name Role Phone Aaron Pisano MD Primary Care Provide r Reason for Visit * Reason Onset Date Comments Med Refill 08/12/2024 Encounter Details Date Type Department Care Team ([facility] st Contact Info) Description 08/12/2024 Refill [facility] MEDICINE 230 [place] [address] Aaron Pisano MD 230 [place] [address] Smoker Social History Tobacco Use Types Packs/Day [...] [facility] CH[facility] MED & PEDS 505 [place] [address] Altagracia Mancilla, GRACIELA 505 [place] [address] 01/31/2025 10:00 AM EDT Office Visit [facility] ADULT DENTAL 230 [place] [address] Zhanna Hernandez documented as of this encounter [...] documented as of this encounter Care Teams Consulting Engineer Relationship Specialty Start Date End Date Aaron Pisano MD 230 [place] [address] PCP - General Internal Medicine 05/10/14 Antonietta Lim [employer] Set Up TechnicianAsbestos Abatement Technician 09/18/24 documented as of this encounter
== END 2024-10-04 11:51 | disposition home or self-care (01) ==
PROVIDERS: PCP Internal Medicine; Visit Provider Internal Medicine
DX: J45.909 Unspecified asthma, uncomplicated (principal); R06.83 Snoring; E66.9 Obesity, unspecified; J30.9 Allergic rhinitis, unspecified
CPT/HCPCS: 99213

== ENCOUNTER → 2024-10-04 11:05 | Outpatient (BNVA) | payer MEDICAID, SELFPAY | PROVIDERS: PCP Internal Medicine; Visit Provider Internal Medicine | DX: J45.909 Unspecified asthma, uncomplicated (principal); R06.83 Snoring; E66.9 Obesity, unspecified; Z68.39 Body mass index [BMI] 39.0-39.9, adult | CPT/HCPCS: 99212 ==

== ENCOUNTER 2024-11-20 12:30 | Outpatient (REF) | payer MEDICAID, SELFPAY ==
--- OUTSIDE RECORDS SUMMARY | 2024-11-20 19:03 | XMS_ITS | Encounter Summary ---
Demographics Address [address] [place] [address] [address] [place] [address] Work Phone Home Phone Mobile Phone Email Address Preferred Language en Marital Status Single Mandaen Affiliation Unknown Race White Ethnic Group or Author Organization [employer] Address [address] [place] [address] 7 [place] [address] Care Team Providers Care Research Methods Instructor Name Role Phone Aaron Pisano MD Primary Care Provide r Reason for Visit * Reason Onset Date Comments Med Refill 09/14/2022 Encounter Details Date Type Department Care Team ([facility] st Contact Info) Description 09/14/2022 Telephone [facility] MEDICINE 230 [place] [address] Aaron Pisano MD 230 [place] [address] Med Refill Social History Tobacco Use Types [...] Info) Description 12/25/2024 1:00 PM EDT Telemedicine [facility] MEDICINE 230 [place] [address] Aaron Pisano MD 230 [place] [address] 01/14/2025 11:00 AM EDT Telemedicine [facility] CHC MED & PEDS 505 [place], [place] [phone] Altagracia Mancilla, GRACIELA 505 [place] [address] 01/31/2025 10:00 AM EDT Office Visit [facility] ADULT DENTAL 230 [place] [address] Zhanna Hernandez documented as of this encounter Visit Diagnoses Not on filedocumented in this encounter Care Teams Research Methods Instructor Relationship Specialty Start Date End Date Aaron Pisano MD 230 [place] [address] PCP - General Internal Medicine 05/10/14 Antonietta Lim Refrigeration Engine OperatorBlender Conveyor Operator 09/18/24 documented as of this encounter
--- OUTSIDE RECORDS SUMMARY | 2024-11-20 19:03 | XMS_ITS | Encounter Summary ---
Demographics Address [address] [place] [address] [address] [place] [address] Work Phone Home Phone Mobile Phone Email Address Preferred Language en Marital Status Single Samaritan Affiliation Unknown Race White Ethnic Group or Author Organization [employer] Address [address] [place] [address] 7t [place] [address] Care Team Providers Care Case Worker Name Role Phone Aaron Pisano MD Primary Care Provide r Reason for Visit * Reason Onset Date Comments Med Refill 11/16/2022 Encounter Details Date Type Department Care Team ([facility] st Contact Info) Description 11/16/2022 Telephone [facility] MEDICINE 230 [place] [address] Aaron Pisano MD 230 [place] [address] Med Refill Social History Tobacco Use Types [...] MG immediate release tablet Please sent to [facility] [place], [place] - [address] [facility] documented in this encounter Plan of Treatment Upcoming Encounters Date Type Department Care Team (Late st Contact Info) Description 12/25/2024 1:00 PM EDT Telemedicine [facility] MEDICINE 230 [place] [address] Aaron Pisano MD 230 [place] [address] 01/14/2025 11:00 AM EDT Telemedicine [facility] CHC MED & PEDS 505 [place] [address] Altagracia Mancilla, GRACIELA 505 [place] [address] 01/31/2025 10:00 AM EDT Office Visit [facility] ADULT DENTAL 230 [place] [address] Zhanna Hernandez documented as of this encounter Visit Diagnoses Not on filedocumented in this encounter Care Teams Case Worker Relationship Specialty Start Date End Date Aaron Pisano MD 230 [place] [address] PCP - General Internal Medicine 05/10/14 Antonietta Lim Business DeanReinstatement Clerk 09/18/24 documented as of this encounter
--- OUTSIDE RECORDS SUMMARY | 2024-11-20 19:03 | XMS_ITS | Encounter Summary ---
Author Organization [employer] Address [address] [place] [address] 7 [place] [address] Care Team Providers Care Operator Engineer Name Role Phone Aaron Pisano MD Primary Care Provide r Reason for Visit * Reason Comments Med Refill Encounter Details Date Type Department Care Team ([facility] Contact Info) Description 03/15/2023 Refill [facility] MEDICINE [address] [place] [address] Aaron Pisano MD [address] [place] [address] [phone] Smoker Social History Tobacco Use Types Packs/Day [...] Upcoming Encounters Date Type Department Care Team ([facility] Contact Info) Description 12/25/2024 1:00 PM EDT Telemedicine [facility] MEDICINE 230 [place], [place] [phone] Aaron Pisano MD [address] [place] [address] [phone] 01/14/2025 11:00 AM EDT Telemedicine [facility] CHC MED & PEDS 505 [place] [address] Altagracia Mancilla, RN 505 [place] [address] 01/31/2025 10:00 AM EDT Office Visit [facility] ADULT DENTAL 230 [place] [address] Zhanna Hernandez documented as of this encounter Visit Diagnoses Diagnosis Smoker Tobacco use disorder documented in this encounter Care Teams Operator Engineer Relationship Specialty Start Date End Date Aaron Pisano MD 230 [place] [address] PCP - General Internal Medicine 05/10/14 Antonietta Lim Industrial Maintenance TechnicianTitle Manager 09/18/24 documented as of this encounter
--- OUTSIDE RECORDS SUMMARY | 2024-11-20 19:03 | XMS_ITS | Encounter Summary ---
Demographics Address [address] [place] [address] [address] [place] [address] Work Phone Home Phone Mobile Phone Email Address Preferred Language en Marital Status Single Religion Affiliation Unknown Race White Ethnic Group or Author Organization [employer] Address [address] [place] [address] 7t [place] [address] Care Team Providers Care Compound Worker Name Role Phone Aaron Pisano MD Primary Care Provide r Reason for Visit * Reason Onset Date Comments Med Refill 08/02/2024 Encounter Details Date Type Department Care Team ([facility] st Contact Info) Description 08/02/2024 Telephone [facility] MEDICINE 230 [place] [address] Aaron Pisano MD 230 [place] [address] Med Refill Social History Tobacco Use Types [...] the past 12 months, has t he [employer], gas, oil or water company threatened to [...] EDT Telemedicine [facility] MEDICINE 230 [place] [address] Aaron Pisano MD 230 [place] [address] 01/14/2025 11:00 AM EDT Telemedicine [facility] CHC MED & PEDS 505 [place] [address] Altagracia Mancilla, GRACIELA 505 [place] [address] 01/31/2025 10:00 AM EDT Office Visit [facility] ADULT DENTAL 230 [place] [address] Zhanna Hernandez documented as of this encounter [...] documented as of this encounter Care Teams Compound Worker Relationship Specialty Start Date End Date Aaron Pisano MD 230 [place] [address] PCP - General Internal Medicine 05/10/14 Antonietta Lim Pet CounselorAssistant Spa Manager 09/18/24 documented as of this encounter
--- OUTSIDE RECORDS SUMMARY | 2024-11-20 19:03 | XMS_ITS | Encounter Summary ---
Demographics Address [address] [place] [address] [address] [place] [address] Work Phone Home Phone Mobile Phone Email Address Preferred Language en Marital Status Single Latter Day Affiliation Unknown Race White Ethnic Group or Author Organization [employer] Address [address] [place] [address] 7t [place] [address] Care Team Providers Care Telephone Sex Worker Name Role Phone Aaron Pisano MD Primary Care Provide r Reason for Visit * Reason Comments Med Refill Encounter Details Date Type Department Care Team ([facility] st Contact Info) Description 10/06/2023 Refill [facility] MEDICINE 230 [place], [place] [phone] Aaron Pisano MD 230 [place], [place] [phone] Chronic midline low back pain without sciatica [...] Info) Description 12/25/2024 1:00 PM EDT Telemedicine [facility] MEDICINE 230 [place] [address] Aaron Pisano MD 230 [place] [address] 01/14/2025 11:00 AM EDT Telemedicine [facility] CHC MED & PEDS 505 [place] [address] Altagracia Mancilla, GRACIELA 505 [place] [address] 01/31/2025 10:00 AM EDT Office Visit [facility] ADULT DENTAL 230 [place] [address] Zhanna Hernandez documented as of this encounter [...] documented as of this encounter Care Teams Telephone Sex Worker Relationship Specialty Start Date End Date Aaron Pisano MD 230 [place] [address] PCP - General Internal Medicine 05/10/14 Antonietta Lim Ring ConductorTonnage Compilation Clerk 09/18/24 documented as of this encounter
--- OUTSIDE RECORDS SUMMARY | 2024-11-20 19:03 | XMS_ITS | Encounter Summary ---
Demographics Address [address] [place] [address] [address] [place] [address] Work Phone Home Phone Mobile Phone Email Address Preferred Language en Marital Status Single Restoration Affiliation Unknown Race White Ethnic Group or Author Organization [employer] Address [address] [place] [address] 7t [place] [address] Care Team Providers Care Soil Surveyor Name Role Phone Aaron Pisano MD Primary Care Provide r Reason for Visit * Reason Onset Date Comments Nurse Triage 02/21/2023 Encounter Details Date Type Department Care Team ([facility] st Contact Info) Description 02/21/2023 Telephone [facility] MEDICINE [address] [place] [address] Aaron Pisano MD 230 [place] [address] Nurse Triage Social History Tobacco Use Types [...] 4:45 PM EDT Please assist with obtaining [facility] ED discharge notes for 02/10/23. This repairer typewriter does not have [employer] [facility] access. Pt sent to ER after visit with [facility]. * Telephone Encounter - Leora Campbell RN - 02/21/2023 4:39 PM EDT Call to Zee Villanueva , reports having vomiting since seen at [facility] ER. Per pt was given abx for UTI and zofran. Per pt completed abx. Per pt continues to have vomiting. 5 episodes of vomiting in last 24 hours. No blood or green bile in vomit. Pt still taking chantix. Pt offered WIC tomorrow. Pt declines needs appt 3 days out for PT1. Agrees to visit with [place] team provider. Reviewed home care advise and reasons to call back. Future Appointments Date Time Provider Department Center 02/25/2023 9:30 AM DUY Taveras MEDICINE [facility] 03/21/2023 1:00 PM Giovanna Payne PharmD MEDICINE [facility] 04/27/2023 3:00 PM Aniya Anderson RN MEDICINE [facility] Multiple (2) protocols were used on this [...] accepted this outcome Please contact pt at [phone] Pt was at [facility] hospital on 02/10/2023 for same symptoms. documented in this encounter Plan of Treatment Upcoming Encounters Date Type Department Care Team (Late st Contact Info) Description 12/25/2024 1:00 PM EDT Telemedicine [facility] MEDICINE [address] [place] [address] Aaron Pisano MD [address] [place] [address] 01/14/2025 11:00 AM EDT Telemedicine [facility] MED & PEDS 505 [place] [address] Altagracia Mancilla, GRACIELA 505 [place] [address] 01/31/2025 10:00 AM EDT Office Visit [facility] ADULT DENTAL [address] [place] [address] Zhanna Hernandez documented as of this encounter Visit Diagnoses Not on filedocumented in this encounter Care Teams Soil Surveyor Relationship Specialty Start Date End Date Aaron Pisano MD [address] [place] [address] PCP - General Internal Medicine 05/10/14 Antonietta Lim Cupola Charger InsulationTin Flopper 09/18/24 documented as of this encounter
--- OUTSIDE RECORDS SUMMARY | 2024-11-20 19:03 | XMS_ITS | Encounter Summary ---
Demographics Address [address] [place] [address] [address] [place] [address] Work Phone Home Phone Mobile Phone Email Address Preferred Language en Marital Status Single Mosque Affiliation Unknown Race White Ethnic Group or Author Organization [employer] Address [address] [place] [address] 7t [place] [address] Care Team Providers Care Care Director Name Role Phone Aaron Pisano MD Primary Care Provide r Reason for Visit * Reason Onset Date Comments Reschedule 03/01/2024 Encounter Details Date Type Department Care Team ([facility] st Contact Info) Description 03/01/2024 Telephone [facility] MEDICINE [address] [place] [address] Aaron Pisano MD 230 [place] [address] Reschedule Social History Tobacco Use Types Packs/Day [...] a call back in order to r/s BUSINESS ANALYST [employer] appt documented in this encounter Plan of Treatment Upcoming Encounters Date Type Department Care Team (Late st Contact Info) Description 12/25/2024 1:00 PM EDT Telemedicine [facility] MEDICINE [address] [place] [address] Aaron Pisano MD 230 [place] [address] 01/14/2025 11:00 AM EDT Telemedicine [facility] MED & PEDS 505 [place] [address] Altagracia Mancilla, GRACIELA 505 [place] [address] 01/31/2025 10:00 AM EDT Office Visit [facility] ADULT DENTAL 230 [place] [address] Zhanna Hernandez documented as of this encounter [...] documented as of this encounter Care Teams Care Director Relationship Specialty Start Date End Date Aaron Pisano MD [address] [place] [address] PCP - General Internal Medicine 05/10/14 Antonietta Lim Instrument ManKnurling Machine Operator 09/18/24 documented as of this encounter
--- OUTSIDE RECORDS SUMMARY | 2024-11-20 19:03 | XMS_ITS | Encounter Summary ---
Demographics Address [address] [place] [address] [address] [place] [address] Work Phone Home Phone Mobile Phone Email Address Preferred Language en Marital Status Single Buddhist Affiliation Unknown Race White Ethnic Group or Author Organization [employer] Address [address] [facility] 7t [place] [address] Care Team Providers Care Rim Buster Name Role Phone Aaron Pisano MD Primary Care Provide r Reason for Visit * Reason Onset Date Comments Med Refill 11/07/2024 Encounter Details Date Type Department Care Team ([facility] st Contact Info) Description 11/07/2024 Refill [facility] MEDICINE [address] [place] [address] Aaron Pisano MD 230 [place] [address] Chronic midline low back pain without sciatica; [...] Telemedicine [facility] MEDICINE [address] [place] [address] Aaron Pisano MD [address] [place] [address] 01/14/2025 11:00 AM EDT Telemedicine [facility] CHC MED & PEDS 505 [place] [address] Altagracia Mancilla, GRACIELA 505 [place] [address] 01/31/2025 10:00 AM EDT Office Visit [facility] ADULT DENTAL [address] [place] [address] Zhanna Hernandez documented as of this encounter [...] documented as of this encounter Care Teams Rim Buster Relationship Specialty Start Date End Date Aaron Pisano MD [address] [place] [address] PCP - General Internal Medicine 05/10/14 Antonietta Lim Radio Electronics TechnicianSales And Catering Coordinator 09/18/24 documented as of this encounter
--- OUTSIDE RECORDS SUMMARY | 2024-11-20 19:03 | XMS_ITS | Encounter Summary ---
Demographics Address [address] [place] [address] [address] [place] [address] Work Phone Home Phone Mobile Phone Email Address Preferred Language en Marital Status Single Mosque Affiliation Unknown Race White Ethnic Group or Author Organization [employer] Address [address] [place] [address] 7t [place] [address] Care Team Providers Care Ballet Master/Mistress Name Role Phone Aaron Pisano MD Primary Care Provide r Reason for Visit * Reason Onset Date Comments Med Refill 08/24/2022 Encounter Details Date Type Department Care Team ([facility] st Contact Info) Description 08/24/2022 Telephone [facility] MEDICINE [address] [place] [address] Aaron Pisano MD [address] [place] [address] Med Refill Social History Tobacco Use Types [...] 12/25/2024 1:00 PM EDT Telemedicine [facility] MEDICINE [address] [place] [address] Aaron Pisano MD [address] [place] [address] 01/14/2025 11:00 AM EDT Telemedicine [facility] CH[facility] MED & PEDS 505 [place], [place] [phone] Altagracia Mancilla RN 505 [place], [place] [phone] 01/31/2025 10:00 AM EDT Office Visit [facility] ADULT DENTAL [address] [place] [address] Zhanna Hernandez documented as of this encounter Visit Diagnoses Not on filedocumented in this encounter Care Teams Ballet Master/Mistress Relationship Specialty Start Date End Date Aaron Pisano MD [address] [place] [address] PCP - General Internal Medicine 05/10/14 Antonietta Lim Income Tax ExpertSocial Studies Teacher 09/18/24 documented as of this encounter
--- OUTSIDE RECORDS SUMMARY | 2024-11-20 19:03 | XMS_ITS | Encounter Summary ---
Demographics Address [address] [place] [address] [address] [place] [address] Work Phone Home Phone Mobile Phone Email Address Preferred Language en Marital Status Single Scientologist Affiliation Unknown Race White Ethnic Group or Author Organization [employer] Address [address] [place] [address] 7t [place] [address] Care Team Providers Care Underwriting Support Manager Name Role Phone Aaron Pisano MD Primary Care Provide r Encounter Details Date Type Department Care Team (Latest Contact Info) Description 11/10/2020 Abstract [facility] CONVERSIONS Dental, Provider, DDS Social [...] Info) Description 12/25/2024 1:00 PM EDT Telemedicine [facility] MEDICINE 230 [place] [address] Aaron Pisano MD 230 [place] [address] 01/14/2025 11:00 AM EDT Telemedicine [facility] CH[facility] MED & PEDS 505 [place] [address] Altagracia Mancilla, GRACIELA 505 [place] [address] 01/31/2025 10:00 AM EDT Office Visit [facility] ADULT DENTAL [address] [place] [address] Zhanna Hernandez documented as of this encounter Visit Diagnoses Not on filedocumented in this encounter Care Teams Underwriting Support Manager Relationship Specialty Start Date End Date Aaron Pisano MD 230 [place] [address] PCP - General Internal Medicine 05/10/14 Antonietta Lim Filtration OperatorSupervisor Reactor Fueling 09/18/24 documented as of this encounter
--- OUTSIDE RECORDS SUMMARY | 2024-11-20 19:03 | XMS_ITS | Encounter Summary ---
Demographics Address [address] [place] [address] [address] [place] [address] Work Phone Home Phone Mobile Phone Email Address Preferred Language en Marital Status Single Scientologist Affiliation Unknown Race White Ethnic Group or Author Organization [employer] Address [address] [place] [address] 7t [place] [address] Care Team Providers Care Product Marketing Programs Manager Name Role Phone Aaron Pisano MD Primary Care Provide r Reason for Visit * Reason Comments Med Refill Encounter Details Date Type Department Care Team ([facility] Contact Info) Description 02/18/2023 Refill [facility] MEDICINE [address] [place] [address] Aaron Pisano MD [address] [place] [address] Social History Tobacco Use Types Packs/Day Years [...] Department Care Team ([facility] Contact Info) Description 12/25/2024 1:00 PM EDT Telemedicine [facility] MEDICINE 230 [place] [address] Aaron Pisano MD [address] [place] [address] 01/14/2025 11:00 AM EDT Telemedicine [facility] CH[facility] MED & PEDS 505 [place] [address] Altagracia Mancilla, GRACIELA 505 [place] [address] 01/31/2025 10:00 AM EDT Office Visit [facility] ADULT DENTAL [address] [place] [address] Zhanna Hernandez documented as of this encounter Visit Diagnoses Not on filedocumented in this encounter Care Teams Product Marketing Programs Manager Relationship Specialty Start Date End Date Aaron Pisano MD [address] [place] [address] PCP - General Internal Medicine 05/10/14 Antonietta Lim Pocket BuilderPattern Checker 09/18/24 documented as of this encounter
--- OUTSIDE RECORDS SUMMARY | 2024-11-20 19:03 | XMS_ITS | Encounter Summary ---
Demographics Address [address] [place] [address] [address] [place] [address] Work Phone Home Phone Mobile Phone Email Address Preferred Language en Marital Status Single Protestant Affiliation Unknown Race White Ethnic Group or Author Organization [employer] Address [address] [facility] 7t [place] [address] Care Team Providers Care Student Success Coach Name Role Phone Aaron Pisano MD Primary Care Provide r Reason for Visit * Reason Onset Date Comments Med Refill 06/01/2023 Encounter Details Date Type Department Care Team (Late st Contact Info) Description 06/01/2023 Refill [facility] CHC MED & PEDS [address] [place] [address] Sumi Vang, ANP 230 [place] [address] Chronic midline low back pain without sciatica [...] Info) Description 12/25/2024 1:00 PM EDT Telemedicine [facility] MEDICINE [address] [place] [address] Aaron Pisano MD [address] [place] [address] 01/14/2025 11:00 AM EDT Telemedicine [facility] CHC MED & PEDS 505 [place] [address] Altagracia Mancilla, RN 505 [place] [address] 01/31/2025 10:00 AM EDT Office Visit [facility] ADULT DENTAL 230 [place] [address] Zhanna Hernandez documented as of this encounter Goals Goal Patient Goal Type Associated Problems Recent Progress Patient-Stated? Author Blood Pressure < 140/90 Blood Pressure 118/64( 025 2:32 PM EST) No Giovanna Banks, Carleen documented as of this encounter Visit Diagnoses Diagnosis Chronic midline low back pain without sciatica documented in this encounter Care Teams Student Success Coach Relationship Specialty Start Date End Date Aaron Pisano MD [address] [place] [address] PCP - General Internal Medicine 05/10/14 Antonietta Lim Route Sales ManagerTechnology Manager 09/18/24 documented as of this encounter
--- OUTSIDE RECORDS SUMMARY | 2024-11-20 19:03 | XMS_ITS | Encounter Summary ---
Demographics Address [address] [place] [address] [address] [place] [address] Work Phone Home Phone Mobile Phone Email Address Preferred Language en Marital Status Single Buddhism Affiliation Unknown Race White Ethnic Group or Author Organization [employer] Address [address] [facility] 7t [place] [address] Care Team Providers Care Tower Helper Name Role Phone Aaron Pisano MD Primary Care Provide r Reason for Visit * Reason Comments Med Refill Encounter Details Date Type Department Care Team ([facility] st Contact Info) Description 07/07/2023 Refill [facility] MEDICINE 230 [place], [place] [phone] Aarno Pisano MD 230 [place], [place] [phone] Social History Tobacco Use Types Packs/Day Years Used Date Smoking Tobacco: Former Cigarettes Passive Smoke Exposure: Never Smokeless Tobacco: Never Alcohol Use Standard Drinks/Week Comments Never 0 (1 standard drink = 0.6 oz pur e alcohol) Housing Stability Answer Date Recorded What is your housing situation today? I do not have housing (Staying with others, in a hotel, in a fdc, living outside on the street, on a [...] Description 12/25/2024 1:00 PM EDT Telemedicine [facility] MEDICINE [address] [place] [address] Aaron Pisano MD 230 [place] [address] 01/14/2025 11:00 AM EDT Telemedicine [facility] CHC MED & PEDS 505 [place], [place] [phone] Altagracia Mancilla, GRACIELA 505 [place] [address] 01/31/2025 10:00 AM EDT Office Visit [facility] ADULT DENTAL [address] [place] [address] Zhanna Hernandez documented as of this encounter Goals Goal Patient Goal Type Associated Problems Recent Progress Patient-Stated? Author Blood Pressure < 140/90 Blood Pressure 118/64( 025 2:32 PM EST) No Giovanna Banks, PharmD documented as of this encounter Visit Diagnoses Not on filedocumented in this encounter Care Teams Tower Helper Relationship Specialty Start Date End Date Aaron Pisano MD [address] [place] [phone] PCP - General Internal Medicine 05/10/14 Antonietta Lim Flight Radio OperatorIngredient Scaler Helper 09/18/24 documented as of this encounter
--- OUTSIDE RECORDS SUMMARY | 2024-11-20 19:03 | XMS_ITS | Encounter Summary ---
Demographics Address [address] [place] [address] [address] [place] [address] Work Phone Home Phone Mobile Phone Email Address Preferred Language en Marital Status Single Muslim Affiliation Unknown Race White Ethnic Group or Author Organization [employer] Address [address] [place] [address] 7 [place] [address] Care Team Providers Care Supervisor Electrolytic Tinning Name Role Phone Aaron Pisano MD Primary Care Provide r Reason for Visit * Reason Onset Date Comments Med Refill 04/04/2023 Encounter Details Date Type Department Care Team ([facility] st Contact Info) Description 04/04/2023 Telephone [facility] MED[facility]INE 230 [place] [address] Aaron Pisano MD 230 [place] [address] Med Refill Social History Tobacco Use Types [...] Info) Description 12/25/2024 1:00 PM EDT Telemedicine [facility] MEDICINE [address] [place] [address] Aaron Pisano MD [address] [place] [address] 01/14/2025 11:00 AM EDT Telemedicine [facility] CH[facility] MED & PEDS 505 [place], [place] [phone] Altagracia Mancilla, GRACIELA 505 [place], [place] [phone] 01/31/2025 10:00 AM EDT Office Visit [facility] ADULT DENTAL 230 [place] [address] Zhanna Hernandez documented as of this encounter Goals Goal Patient Goal Type Associated Problems Recent Progress Patient-Stated? Author Blood Pressure < 140/90 Blood Pressure 118/64( 025 2:32 PM EST) No Giovanna Banks, SohamD documented as of this encounter Visit Diagnoses Not on filedocumented in this encounter Care Teams Supervisor Electrolytic Tinning Relationship Specialty Start Date End Date Aaron Pisano MD [address] [place] [address] PCP - General Internal Medicine 05/10/14 Antonietta Lim Sample Maker OriginalManager Engine 09/18/24 documented as of this encounter
--- OUTSIDE RECORDS SUMMARY | 2024-11-20 19:03 | XMS_ITS | Encounter Summary ---
Demographics Address [address] [place] [address] [address] [place] [address] Work Phone Home Phone Mobile Phone Email Address Preferred Language en Marital Status Single Anabaptism Affiliation Unknown Race White Ethnic Group or Author Organization [employer] Address [address] [place] [address] 7t [place] [address] Care Team Providers Care Events Traffic Controller Name Role Phone Aaron Pisano MD Primary Care Provide r Reason for Visit * Reason Comments Med Refill Encounter Details Date Type Department Care Team ([facility] st Contact Info) Description 05/07/2024 Refill [facility] MEDICINE 230 [place], [place] [phone] Aaron Pisano MD 230 [place], [place] [phone] Chronic midline low back pain without sciatica [...] Info) Description 12/25/2024 1:00 PM EDT Telemedicine [facility] MEDICINE [address] [place] [address] Aaron Pisano MD 230 [place] [address] 01/14/2025 11:00 AM EDT Telemedicine [facility] CHC MED & PEDS 505 [place] [address] Altagracia Mancilla, GRACIELA 505 [place] [address] 01/31/2025 10:00 AM EDT Office Visit [facility] ADULT DENTAL [address] [place] [address] Zhanna Hernandez documented as of this encounter [...] documented as of this encounter Care Teams Events Traffic Controller Relationship Specialty Start Date End Date Aaron Pisano MD [address] [place] [address] PCP - General Internal Medicine 05/10/14 Antonietta Lim Managing MemberAnnual Giving Director 09/18/24 documented as of this encounter
--- OUTSIDE RECORDS SUMMARY | 2024-11-20 19:03 | XMS_ITS | Encounter Summary ---
Demographics Address [address] [place] [address] [address] [place] [address] Work Phone Home Phone Mobile Phone Email Address Preferred Language en Marital Status Single Yarsanism Affiliation Unknown Race White Ethnic Group or Author Organization [employer] Address [address] [place] [address] 7t [place] [address] Care Team Providers Care General Road Foreman Name Role Phone Aaron Pisano MD Primary Care Provide r Reason for Visit * Reason Comments Med Refill Encounter Details Date Type Department Care Team ([facility] st Contact Info) Description 01/30/[address] [facility] MEDICINE [address] [place], [place] [phone] Aaron Pisano MD [address] [place], [place] [phone] Chronic midline low back pain without sciatica [...] 12/25/2024 1:00 PM EDT Telemedicine [facility] MEDICINE [address] [place] [address] Aarno Pisano MD 230 [place] [address] 01/14/2025 11:00 AM EDT Telemedicine [facility] CHC MED & PEDS 505 [place] [address] Altagracia Mancilla, GRACIELA 505 [place] [address] 01/31/2025 10:00 AM EDT Office Visit [facility] ADULT DENTAL [address] [place] [address] Zhanna Hernandez documented as of this encounter [...] documented as of this encounter Care Teams General Road Foreman Relationship Specialty Start Date End Date Aaron Pisano MD 230 [place] [address] PCP - General Internal Medicine 05/10/14 Antonietta Lim Apple SorterCoffee Machine Technician 09/18/24 documented as of this encounter
--- OUTSIDE RECORDS SUMMARY | 2024-11-20 19:03 | XMS_ITS | Encounter Summary ---
Demographics Address [address] [place] [address] [address] [place] [address] Work Phone Home Phone Mobile Phone Email Address Preferred Language en Marital Status Single Evangelical Affiliation Unknown Race White Ethnic Group or Author Organization [employer] Address [address] [facility] 7t [place] [address] Care Team Providers Care Assembly Instructions Writer Name Role Phone Aaron Pisano MD Primary Care Provide r Reason for Visit * Reason Comments Med Refill Encounter Details Date Type Department Care Team ([facility] st Contact Info) Description 11/20/2024 Refill [facility] MEDICINE 230 [place], [place] [phone] Aaron Pisano MD 230 [place], [place] [phone] Cough in adult patient Social History Tobacco [...] EDT Telemedicine [facility] MEDICINE 230 [place] [address] Aaron Pisano MD 230 [place] [address] 01/14/2025 11:00 AM EDT Telemedicine [facility] CHC MED & PEDS 505 [place] [address] Altagracia Mancilla, GRACIELA 505 [place] [address] 01/31/2025 10:00 AM EDT Office Visit [facility] ADULT DENTAL 230 [place] [address] Zhanna Hernandez documented as of this encounter [...] documented as of this encounter Care Teams Assembly Instructions Writer Relationship Specialty Start Date End Date Aaron Pisano MD [address] [place] [address] PCP - General Internal Medicine 05/10/14 Antonietta Lim Theater Education TeacherAutomatic Trimming Sewer 09/18/24 documented as of this encounter
--- OUTSIDE RECORDS SUMMARY | 2024-11-20 19:03 | XMS_ITS | Encounter Summary ---
Demographics Address [address] [place] [address] [address] [place] [address] Work Phone Home Phone Mobile Phone Email Address Preferred Language en Marital Status Single Congregation Affiliation Unknown Race White Ethnic Group or Author Organization [employer] Address [address] [facility] 7t [place] [address] Care Team Providers Care Stemhole Borer And Topper Name Role Phone Aaron Pisano MD Primary Care Provide r Reason for Visit * Reason Comments Med Refill Encounter Details Date Type Department Care Team ([facility] st Contact Info) Description 07/04/[address] [facility] CHC MED & PEDS [address] [place], [place] [phone] Sumi Vang, ANP [address] [facility] [place] [address] Social History Tobacco Use Types Packs/Day Years [...] 1:00 PM EDT Telemedicine [facility] MEDICINE [address] [place] [address] Aaron Pisano MD [address] [place] [address] 01/14/2025 11:00 AM EDT Telemedicine [facility] CHC MED & PEDS [address] [place], [place] [phone] Altagracia Mancilla, GRACIELA 505 [place] [address] 01/31/2025 10:00 AM EDT Office Visit [facility] ADULT DENTAL 230 [place] [address] Zhanna Hernandez documented as of this encounter Goals Goal Patient Goal Type Associated Problems Recent Progress Patient-Stated? Author Blood Pressure < 140/90 Blood Pressure 118/64( 025 2:32 PM EST) No Giovanna Banks, SohamD documented as of this encounter Visit Diagnoses Not on filedocumented in this encounter Care Teams Stemhole Borer And Topper Relationship Specialty Start Date End Date Aaron Pisano MD [address] [place] [address] PCP - General Internal Medicine 05/10/14 Antonietta Lim Painter ApprenticeHalal Butcher 09/18/24 documented as of this encounter
--- OUTSIDE RECORDS SUMMARY | 2024-11-20 19:03 | XMS_ITS | Encounter Summary ---
Demographics Address [address] [place] [address] [address] [place] [address] Work Phone Home Phone Mobile Phone Email Address Preferred Language en Marital Status Single Catholic Affiliation Unknown Race White Ethnic Group or Author Organization [employer] Address [address] [place] [address] 7t [place] [address] Care Team Providers Care Community Service Representative Name Role Phone Aaron Pisano MD Primary Care Provide r Reason for Visit * Reason Onset Date Comments Med Refill 08/12/2024 Encounter Details Date Type Department Care Team ([facility] st Contact Info) Description 08/12/2024 Refill [facility] MEDICINE [address] [place] [address] Aaron Pisano MD 230 [place] [address] Social History Tobacco Use Types Packs/Day Years [...] the past 12 months, has t he [employer], gas, oil or water company threatened to [...] Info) Description 12/25/2024 1:00 PM EDT Telemedicine [facility] MEDICINE [address] [place] [address] Aaron Pisano MD 230 [place] [address] 01/14/2025 11:00 AM EDT Telemedicine [facility] CHC MED & PEDS 505 [place] [address] Altagracia Mancilla, GRACIELA 505 [place] [address] 01/31/2025 10:00 AM EDT Office Visit [facility] ADULT DENTAL [address] [place] [address] Zhanna Hernandez documented as of this encounter [...] of this encounter Care Teams Community Service Representative Relationship Specialty Start Date End Date Aaron Pisano MD [address] [place] [phone] PCP - General Internal Medicine 05/10/14 Antonietta Lim Hospice RnBroomcorn Scraper 09/18/24 documented as of this encounter
--- OUTSIDE RECORDS SUMMARY | 2024-11-20 19:03 | XMS_ITS | Encounter Summary ---
Demographics Address [address] [place] [address] [address] [place] [address] Work Phone Home Phone Mobile Phone Email Address Preferred Language en Marital Status Single Restorationist Affiliation Unknown Race White Ethnic Group or Author Organization [employer] Address [address] [place] [address] 7t [place] [address] Care Team Providers Care Automotive Light Mechanic Name Role Phone Aaron Pisano MD Primary Care Provide r Reason for Visit * Reason Onset Date Comments Med Refill 08/12/2024 Encounter Details Date Type Department Care Team ([facility] st Contact Info) Description 08/12/2024 Refill [facility] MEDICINE [address] [place] [address] Aaron Pisano MD [address] [place] [address] Smoker Social History Tobacco Use Types Packs/Day [...] Info) Description 12/25/2024 1:00 PM EDT Telemedicine [facility] MEDICINE [address] [place] [address] Aaron Pisano MD 230 [place] [address] 01/14/2025 11:00 AM EDT Telemedicine [facility] CHC MED & PEDS 505 [place] [address] Altagracia Mancilla, GRACIELA 505 [place] [address] 01/31/2025 10:00 AM EDT Office Visit [facility] ADULT DENTAL [address] [place] [address] Zhanna Hernandez documented as of this encounter [...] documented as of this encounter Care Teams Automotive Light Mechanic Relationship Specialty Start Date End Date Aaron Pisano MD [address] [place] [id number] PCP - General Internal Medicine 05/10/14 Antonietta Lim Pie FillerJerker 09/18/24 documented as of this encounter
--- OUTSIDE RECORDS SUMMARY | 2024-11-20 19:03 | XMS_ITS | Encounter Summary ---
Demographics Address [address] [place] [address] [address] [place] [address] Work Phone Home Phone Mobile Phone Email Address Preferred Language en Marital Status Single Voodoo Affiliation Unknown Race White Ethnic Group or Author Organization [employer] Address [address] [place] [address] 7t [place] [address] Care Team Providers Care Project Control Officer Name Role Phone Aaron Pisano MD Primary Care Provide r Encounter Details Date Type Department Care Team (Latest Contact Info) Description 07/16/2019 Abstract [facility] CONVERSIONS Dental, Provider, DDS Social History Tobacco [...] 12/25/2024 1:00 PM EDT Telemedicine [facility] MEDICINE 230 [place] [address] Aaron Pisano MD 230 [place] [address] 01/14/2025 11:00 AM EDT Telemedicine [facility] CHC MED & PEDS 505 [place] [address] Altagracia Mancilla, GRACIELA 505 [place] [address] 01/31/2025 10:00 AM EDT Office Visit [facility] ADULT DENTAL 230 [place] [address] Zhanna Hernandez documented as of this encounter Visit Diagnoses Not on filedocumented in this encounter Care Teams Project Control Officer Relationship Specialty Start Date End Date Aaron Pisano MD 230 [place] [address] PCP - General Internal Medicine 05/10/14 Antonietta Lim Nursing AdministratorDrug Purchaser 09/18/24 documented as of this encounter
--- OUTSIDE RECORDS SUMMARY | 2024-11-20 19:03 | XMS_ITS | Encounter Summary ---
Demographics Address [address] [place] [address] [address] [place] [address] Work Phone Home Phone Mobile Phone Email Address Preferred Language en Marital Status Single Orthodoxy Affiliation Unknown Race White Ethnic Group or Author Organization [employer] Address [address] [facility] 7t [place] [address] Care Team Providers Care Engineer Intern Name Role Phone Aaron Pisano MD Primary Care Provide r Reason for Visit * Reason Comments Med Refill Encounter Details Date Type Department Care Team ([facility] st Contact Info) Description 08/09/2023 Refill [facility] MEDICINE 230 [place] [address] Sumi Vang, ANP 230 [place] [address] Chronic midline low back pain without sciatica [...] with others, in a hotel, in a skilled nursing, living outside on the street, on a [...] Info) Description 12/25/2024 1:00 PM EDT Telemedicine [facility] MEDICINE [address] [place] [address] Aaron Pisano MD [address] [place] [address] 01/14/2025 11:00 AM EDT Telemedicine [facility] CHC MED & PEDS 505 [place] [address] Altagracia Mancilla, GRACIELA 505 [place] [address] 01/31/2025 10:00 AM EDT Office Visit [facility] ADULT DENTAL [address] [place] [address] Zhanna Hernandez documented as of this encounter Goals Goal Patient Goal Type Associated Problems Recent Progress Patient-Stated? Author Blood Pressure < 140/90 Blood Pressure 118/64( 025 2:32 PM EST) No Giovanna Banks, Carleen documented as of this encounter Visit Diagnoses Diagnosis Chronic midline low back pain without sciatica documented in this encounter Care Teams Engineer Intern Relationship Specialty Start Date End Date Aaron Pisano MD [address] [place] [address] PCP - General Internal Medicine 05/10/14 Antonietta Lim Supervisor Denture DepartmentHeritage Consultant 09/18/24 documented as of this encounter
--- OUTSIDE RECORDS SUMMARY | 2024-11-20 19:03 | XMS_ITS | Encounter Summary ---
Author Organization [employer] Address [address] [place] [address] 7t [place] [address] Care Team Providers Care Blanket Maker Name Role Phone Aaron Pisano MD Primary Care Provide r Reason for Visit * Reason Comments Med Refill Encounter Details Date Type Department Care Team ([facility] Contact Info) Description 04/18/[address] [facility] MEDICINE [address] [place] [address] Aaron Pisano MD [address] [place] [address] Chronic bilateral low back pain without sciatica [...] Upcoming Encounters Date Type Department Care Team ([facility] Contact Info) Description 12/25/2024 1:00 PM EDT Telemedicine [facility] MEDICINE [address] [place], [place] [phone] Aaron Pisano MD [address] [place] [address] 01/14/2025 11:00 AM EDT Telemedicine [facility] CHC MED & PEDS 505 [place] [address] Altagracia Mancilla, RN [address] [place] [address] 01/31/2025 10:00 AM EDT Office Visit [facility] ADULT DENTAL [address] [place] [address] Zhanna Hernandez documented as of this encounter Goals Goal Patient Goal Type Associated Problems Recent Progress Patient-Stated? Author Blood Pressure < 140/90 Blood Pressure 118/64( 025 2:32 PM EST) Giovanna Edwards, Carleen documented as of this encounter Visit Diagnoses Diagnosis Chronic bilateral low back pain without sciatica documented in this encounter Care Teams Blanket Maker Relationship Specialty Start Date End Date Aaron Pisano MD [address] [place] [address] PCP - General Internal Medicine 05/10/14 Antonietta Lim Pipe And Test SupervisorSeam Rubber 09/18/24 documented as of this encounter
--- OUTSIDE RECORDS SUMMARY | 2024-11-20 19:03 | XMS_ITS | Encounter Summary ---
Demographics Address [address] [place] [address] [address] [place] [address] Work Phone Home Phone Mobile Phone Email Address Preferred Language en Marital Status Single Scientology Affiliation Unknown Race White Ethnic Group or Author Organization [employer] Address [address] [facility] 7t [place] [address] Care Team Providers Care Summer Analyst Name Role Phone Aaron Pisano MD Primary Care Provide r Reason for Visit * Reason Comments Med Refill Encounter Details Date Type Department Care Team ([facility] st Contact Info) Description 10/08/2024 Refill [facility] MEDICINE 230 [place], [place] [phone] Aaron Pisano MD 230 [place], [place] [phone] Diarrhea in adult patient; Chronic midline low [...] Info) Description 12/25/2024 1:00 PM EDT Telemedicine [facility] MEDICINE 230 [place] [address] Aaron Pisano MD 230 [place] [address] 01/14/2025 11:00 AM EDT Telemedicine [facility] CHC MED & PEDS 505 [place] [address] Altagracia Mancilla, GRACIELA 505 [place] [address] 01/31/2025 10:00 AM EDT Office Visit [facility] ADULT DENTAL 230 [place] [address] Zhanna Hernandez documented as of this encounter [...] documented as of this encounter Care Teams Summer Analyst Relationship Specialty Start Date End Date Aaron Pisano MD [address] [place] [address] PCP - General Internal Medicine 05/10/14 Antonietta Lim Community Development DirectorCow Puncher 09/18/24 documented as of this encounter
--- OUTSIDE RECORDS SUMMARY | 2024-11-20 19:03 | XMS_ITS | Encounter Summary ---
Demographics Address [address] [place] [address] [address] [place] [address] Work Phone Home Phone Mobile Phone Email Address Preferred Language en Marital Status Single Taoism Affiliation Unknown Race White Ethnic Group or Author Organization [employer] Address [address] [place] [address] 7t [place] [address] Care Team Providers Care After School Program Director Name Role Phone Aaron Pisano MD Primary Care Provide r Reason for Visit * Reason Onset Date Comments Med Refill 11/16/2022 Encounter Details Date Type Department Care Team ([facility] st Contact Info) Description 11/16/2022 Telephone [facility] MEDICINE [address] [place] [address] Aaron Pisano MD [address] [place] [address] Med Refill Social History Tobacco Use Types [...] med refill status Please contact pt at [phone] * Telephone Encounter - Natasha Jain - 11/30/2022 1:14 PM EDT Tc from pt requesting medication status. Please contact pt at [phone] * Telephone Encounter - Jenny Smith - 11/16/2022 4:36 PM EDT Tc from pt requesting med refill for medication oxyCODONE (Roxicodone) 5 MG immediate release tablet. documented in this encounter Plan of Treatment Upcoming Encounters Date Type Department Care Team (Late st Contact Info) Description 12/25/2024 1:00 PM EDT Telemedicine [facility] MEDICINE [address] [place] [address] Aaron Pisano MD [address] [place] [address] 01/14/2025 11:00 AM EDT Telemedicine [facility] CHC MED & PEDS [address] [place] [address] Altagracia Mancilla, GRACIELA 505 [place] [address] 01/31/2025 10:00 AM EDT Office Visit [facility] ADULT DENTAL [address] [place] [address] Zhanna Hernandez documented as of this encounter Visit Diagnoses Not on filedocumented in this encounter Care Teams After School Program Director Relationship Specialty Start Date End Date Aaron Pisano MD [address] [place] [address] PCP - General Internal Medicine 05/10/14 Antonietta Lim Technical ArchitectModel Set Artist 09/18/24 documented as of this encounter
--- OUTSIDE RECORDS SUMMARY | 2024-11-20 19:04 | XMS_ITS | Clinical Summary ---
Demographics Address [address] [place] [address] [address] K[place] HINES [address] Work Phone Home Phone Mobile Phone Email Address Preferred Language en Marital Status Single Synagogue Affiliation Unknown Race White Ethnic Group or Author Organization [employer] Address [address] [place] [address] 7t [place] [address] Care Team Providers Care Sulfate Drier Machine Operator Name Role Phone Aaron Pisano MD [...] MILD PAIN 60 tablet 08/13/19 25 Active furosemide (Lasix) 40 MG tabletIndicat [...] cholecalcifer ol (D3 Super Strength) 50 MCG (1999 [place]) capsuleIndica tions:Seasona l allergies TAKE 1 [...] severe pain. 56 tablet 11/08/19 25 Active esomeprazole (NexIUM) [address] capsuleIndica tions:Cough in adult patient TAKE 1 CAPSULE BY MOUTH TWICE DAILY IN THE MORNING AND IN THE EVENING 60 capsule 2 11/21/19 25 Active cholecalcifer ol (D3 Super Strength) 50 MCG (1999 [place]) capsuleIndica tions:Seasona l allergies Take 1 [...] 60 tablet 1 08/16/19 25 025 Discontinued esomeprazole (NexIUM) [address] capsuleIndica tions:Cough in adult patient TAKE 1 CAPSULE BY MOUTH TWICE DAILY IN THE MORNING AND IN THE EVENING 180 capsule 08/21/19 25 025 Discontinued oxyCODONE (Roxicodone) 5 MG [...] Prednisone. She is under the care of Nuclear Powerplant Supervisor Dr Newberry. She is on Prednisone 2 [...] of a psychotherapist and a psychiatrist. At [facility] Pt is no longer on Abilify nor Clonidine. She is now on Geodon Assessment & Plan (08/03/2022 9:22 AM EST): Pt under the care of a psychotherapist and a psychiatrist. At [facility] started on Abilify 7.5 mg po [...] most recently seen by Dr Rodas at [facility] 06/15/2024 who recommended PRN follow up Assessment [...] (08/23/2023 1:51 PM EST): Previously referred to [facility] Comprehensive weight management program. Seen twice, they prompter to discuss with her mental health provider her eating habits before they would consider accepting her into the program Assessment & Plan (12/30/2022 3:28 PM EDT): Previously referred to [facility] Comprehensive weight management program Assessment & Plan (08/03/2022 1:48 PM EST): Referred to [facility] Comprehensive weight management program Genital herpes simplex [...] EST): Seen in the past by an Dairy Tester (Dr. Dozier) Under the care of Clare Carlin The last US on record done at [facility] 01/2019 showed a hypoechoic well circumscribed [...] Type Department Care Team Description 11/20/2024 Refill [facility] [address] [place] [address] Aaron Pisano MD Cough in adult patient 11/07/2024 Refill [facility] [address] [place] [address] Aaron Pisano MD Chronic midline low back pain without sciatica 11/07/2024 Refill [facility] [address] [place] [address] Aaron Pisano MD Chronic midline low back pain without sciatica; Diarrhea in adult patient 11/01/2024 Refill [facility] [address] [place] [address] Aaron Pisano MD Intractable vomiting with nausea 10/22/2024 Refill [facility] [address] [place] [address] Aaron Pisano MD Seasonal allergies 10/21/2024 Refill [facility] [address] [place] [address] Aaron Pisano MD Chronic bilateral low back pain without sciatica; Seasonal allergies 10/19/2024 Population Health Risk Score [facility] Department [address] [phone] Provider, Population Health Generic 10/18/2024 11:00 AM EDT Clinical Support [facility] & PEDS [address] [place] [address] Altagracia Mancilla RN Chronic bilateral low back pain without sciatica (Primary Dx); Long-term current use of opiate analgesic 10/18/2024 Travel 10/08/2024 Refill [facility] [address] [place] [address] Aaron Pisano MD Diarrhea in adult patient; Chronic midline low back pain without sciatica 10/05/2024 Refill [facility] [address] [facility] [place] [address] Aaron Pisano MD Chronic midline low back pain without sciatica; Diarrhea in adult patient 09/20/2024 Refill [facility] [address] [facility] [place] [address] Aaron Pisano MD 09/18/2024 Telephone [facility] [address] [place] [address] Aaron Pisano MD Care Coordination ([facility] CP Lawn Specialist ) 09/11/2024 Refill [facility] MED & PEDS [address] [place], [place] [phone] Aaron Pisano MD 09/10/2024 Refill [facility] 230 [facility] [place] [address] Aaron Pisano MD Diarrhea in adult patient 09/06/2024 2:30 PM EST Office Visit [facility] [place] [address] Aaron Pisano MD Routine physical examination (Primary Dx); Routine health maintenance; Positive LUCRETIA (antinuclear antibody); Mild intermittent asthma without complication; Chronic midline low back pain without sciatica; Breast cyst, right 09/06/2024 Travel 08/27/2024 Orders Only GENERIC EXTERNAL DATA DEPARTMENT Provider, Generic External Data 08/24/2024 Patient Outreach [facility] [place] [address] Aaron Pisano MD Care Coordination ([facility] outreach for SDOH PT-1 and food needs-referral completed /) 08/24/2024 Telephone [facility] [address] [facility] [place] [address] Aaron Pisano MD Chart Prep 08/24/2024 Patient Outreach [facility] [address] [facility] [place] [address] Aaron Pisano MD Pre-visit Planning (SDOH Screening posible and Tobacco screening negative) 08/23/2024 Refill [facility] [address] [place] [address] Aaron Pisano MD Primary hypertension; Vasculitis (CMS/HCC) [...] EDT Telemedicine [facility] [address] [place] [address] Aaron Pisano MD [address] [place] [address] 01/14/2025 11:00 AM EDT Telemedicine [facility] MED [facility]EDS [address] [place] [address] Altagracia Mancilla, GRACIELA [address] [place] [address] 01/31/2025 10:00 AM EDT Office Visit [facility] ADULT DENTAL [address] [place] [address] Masood Hernandezsa Health Maintenance Due Date Last Done Comments [...] RN - 10/18/2024 11:15 AM EDT Lot# [id number] Exp: 03-27-26 us Aaron Harris MD POINT OF CARE TEST EN TER/EDIT ORDERABLES Final Result * VITAMIN D 25-OH (D2 AND D3) (08/27/2024 11:30 AM EST) Vitamin D, 25-OH, D2 <4 ng/mL [facility] Comment:This test was develo ped and its analytical performancecharacteristics have been determined by [employer] [place], [place]. It hasnot been cleared or approved by the U.S. Food and DrugAdministration. This assay has been validated pursuantto the CLIA regulations and is used for clinicalpurposes.THIS TEST WAS PERFORMED AT:[employer] [id number] [place] [id number] CARRANZA MD,PHD Vitamin D, 25-OH, D3 56 ng/mL [facility] Comment:This test was develo ped and its analytical performancecharacteristics have been determined by [employer] [place], [place]. It hasnot been cleared or approved by the U.S. Food and DrugAdministration. This assay has been validated pursuantto the CLIA regulations and is used for clinicalpurposes. Vitamin D, 25-OH, Total 56 30 - 100 ng/mL [facility] Comment:Vitamin D, 25-Hydrox y reports [...] = 30 ng/mL.For additional information, please refer tohttp://education.Alleantia/faq/ECL267(This link is being provided for informational/educational purposes only.) 08/27/2024 11:3 0 AM EST 08/27/2024 11:30 AM EST us Generic External Data Provider LAB BLOOD ORDERAB LES Final Result [facility] [address] [place] [phone] * Vitamin B12 (Cobalamin) and Folate Panel, Serum (08/27/2024 11:30 AM EST) Vitamin B12 427 200 - 900 pg/mL [facility] Comment:NORMAL 200-900 PG/ML INDETERMINATE 160-199 PG/ML DEFICIENT < 160 PG/ML Folate 5.0 > or = 4.0 ng/mL [facility] Comment:Reference Values:> o r = 4.0 ng/mL< 4.0 ng/mL suggests folate deficiency Methotrexate, aminopterin and folinic acid(leucovorin) are chemotherapeutic agents whose molecularstructures are similar to folate; therefore, the Architectfolate assay cannot be used for patients using these drugs. 08/27/2024 11:3 0 AM EST 08/27/2024 11:30 AM EST Generic External Data Provider LAB BLOOD ORDERAB LES Final Result Performing Organization Address [facility] de Phone Number [facility] [address] [place] [address] [phone] * TSH with Reflex to Free T4 (08/27/2024 11:30 AM EST) Pathologist [facility] TSH reflex Free T4 1.62 0.32 - 4.0 uIU/mL [facility] 08/27/2024 11:3 0 AM EST 08/27/2024 11:30 AM EST Generic External Data Provider LAB BLOOD ORDERAB LES Final Result Performing Organization Address [facility] de Phone Number [facility] [address] [place] [address] [phone] * Tissue Transglutaminase Antibody, IgA (08/27/2024 11:30 AM EST) Pathologist [facility] Transglutaminase IgA <1.0 U/mL [facility] Comment:Value Interpretation ----- <15.0 Antibody not detected> or = 15.0 Antibody detectedTHIS TEST WAS PERFORMED AT:[employer] [place] [id number] REDMOND MD 08/27/2024 11:3 0 AM EST 08/27/2024 11:30 AM EST us Generic External Data Provider LAB BLOOD ORDERAB LES Final Result Performing Organization Address [facility]/ZIP Co de Phone Number [facility] [address] [place] [phone] * (ABNORMAL) CBC (08/27/2024 11:30 AM EST) White Blood Count 12.9(H) 4.8 - 10.8 X10*3/uL [facility] Red Blood Count 4.82 4.20 - 5.50 X10*6/uL [facility] Hemoglobin 12.9 12.0 - 16.0 g/dl [facility] Hematocrit 40.4 37.0 - 47.0 % [facility] Mean Corpuscular Volume 83.8 80.0 - 98.0 fL [facility] Mean Corpuscular Hemoglobin 26.8(L) 27.0 - 33.0 pg [facility] Mean Corpuscular HGB Conc 31.9 31.0 - 35.0 g/dl [facility] Red Cell Distribution Width 14.8 11.0 - 16.0 % [facility] Platelet Count 368 160 - 400 X10*3/uL [facility] Mean Platelet Volume 10.3 9.4 - 12.3 fL [facility] NRBC Pct Auto 0.0 0.0 - 0.2 /100WBC [facility] NRBC Abs Auto 0.000 0.0 - 0.012 X10*3/uL [facility] 08/27/2024 11:3 0 AM EST 08/27/2024 11:30 AM EST us Generic External Data Provider LAB BLOOD ORDERAB LES Final Result Performing Organization Address City/[facility]/ZIP Co de Phone Number [facility] [address] [place] [phone] * (ABNORMAL) C-reactive Protein (08/27/2024 11:30 AM EST) Pathologist [facility] C Reactive Protein 2.22(H) < or = 0.50 mg/dL [facility] 08/27/2024 11:3 0 AM EST 08/27/2024 11:30 AM EST Generic External Data Provider LAB BLOOD ORDERAB LES Final Result Performing Organization Address [facility]/ZIP Co de Phone Number [facility] [address] [place] [phone] * Lipase (08/27/2024 11:30 AM EST) Pathologist [facility] Lipase 14 8 - 78 U/L [facility] 08/27/2024 11:3 0 AM EST 08/27/2024 11:30 AM EST us Generic External Data Provider LAB BLOOD ORDERAB LES Final Result Performing Organization Address City/[facility]/ZIP Co de Phone Number [facility] [address] [place] [phone] * Comprehensive Metabolic Panel (08/27/2024 11:30 AM EST) Pathologist [facility] Sodium 141 135 - 145 mmol/L [facility] Potassium 3.8 3.3 - 5.1 mmol/L [facility] Chloride 104 96 - 108 mmol/L [facility] Carbon Dioxide 27 22 - 29 mmol/L [facility] Anion Gap 14 12 - 20 [facility] Urea Nitrogen (BUN) 15 9 - 16 mg/dL [facility] Creatinine, Serum 0.80 0.5 - 1.4 mg/dL [facility] Estimated Glomerular Filt Rate >60 [facility] Comment:Chronic Kidney Disea se: Estimated GFR < 60 mL/min/1.77o1Llguog Kidney Disease: Estimated GFR < 15 mL/min/1.73m2 Glucose 75 60 - 115 mg/dL [facility] Calcium 9.1 8.4 - 10.2 mg/dL [facility] Bilirubin, Total 0.4 0.0 - 1.0 mg/dL [facility] Aspartate Amino Transferase 19 5 - 31 U/L [facility] Alanine Aminotransferase 10 0 - 31 U/L [facility] Total Protein 8.0 6.5 - 8.0 g/dL [facility] Albumin Level 4.2 3.5 - 5.0 g/dL [facility] Alkaline Phosphatase 102 39 - 117 U/L [facility] 08/27/2024 11:3 0 AM EST 08/27/2024 11:30 AM EST us Generic External Data Provider LAB BLOOD ORDERAB LES Final Result [facility] [address] [place] [phone] * (ABNORMAL) Lipid Panel, Standard (04/30/2024 2:25 PM EDT) Triglycerides 173(H) <150 mg/dL [facility] Comment:Desirable Triglyceri de: less than 150 mg/dLBorderline High Triglyceride 150-199 mg/dLHigh Triglyceride: 200-499 mg/dLVery High Triglyceride: greater than or equal to 5OO mg/dL Cholesterol 213(H) <200 mg/dL [facility] Comment:Desirable Cholestero l: less than 200 mg/dLBorderline High Cholesterol: 200-239 mg/dLHigh Cholesterol: greater than 239 mg/dL LDL Cholesterol Calculated 134(H) <100 mg/dL [facility] Comment:Desirable LDL: less than 100 mg/dLNear Optimal/Above Optimal LDL: 110- 129 mg/dLBorderline High LDL: 130-159 mg/dLHigh LDL: 160-189 mg/dLVery High LDL: greater than or equal to 190 mg/dL HDL Cholesterol 45 >40 mg/dL [facility] Comment:Desirable HDL: great er than 40 mg/dL Note: This HDL assay may give artificially low results in patients with liver disease. Blood Venous blood specimen / Unknown 04/30/2024 2:25 PM EDT 04/30/2024 4:57 PM EDT us Aaron Harris MD LAB BLOOD ORDERABLES Final Result [facility] [address] [place] [phone] * BI Mammogram Screening Tomosynthesis Bilateral (01/26/2024 1:45 PM EDT) Anatomical Region Laterality Modality Breast Bilateral Mammography 01/26/2024 1:45 PM EDT Narrative 02/24/2024 2:20 PM EDT ? [facility] ? [address] ?[place] [address] ? Mammography Report ? Signed ? Patient: Paul Villanuevafa A ?MR#: [id number] ?? [id number] ? : 1975 ?Acct:[id number] ? Age/Sex: 48 / F ?ADM Date: 01/26/24 ? Loc: HO.MAMMO ? Attending Dr: Aaron Carcamo MD ? Ordering Physician: Aaron Carcamo MD ?Resu ?? lts: 1Negative ? Date of Service: 01/25/ ?Follow Up: 1 Year From Orig ?? inal Mammogram ? Procedure(s): MM tomosynthesis screening BI ?? Accession Number(s): [id number] ? cc: Aaron Carcamo MD ? EXAMINATION: [...] 1417 ? DD/ 1345 ? TD/TT: ? Apartment Groundskeeper: ? Procedure Note Kyle Villarreal - 02/24/2024 [facility] [address] [place] [address] Dr. [place], [place] [address] Mammography Report Signed Patient: Zee Villanueva [facility]#: [id number] : 1975Acct:[id number] Age/Sex: 48 / FADM Date: 01/26/24 Loc: HO.MAMMO Attending Dr: Aaron Carcamo MD Ordering Physician: Aaron Carcamo MDResu lts: 1Negative Date of Service: 01/26/24Follow Up: 1 Year From Orig inal Mammogram Procedure(s): MM tomosynthesis screening BI Accession Number(s): [id number] cc: Aaron Carcamo MD EXAMINATION: MM SCREENING [...] in OV> 02/24/24 1417 DD/ 1345 TD/TT: Apartment Groundskeeper: us Aaron Harris MD IMG BI PROCEDURES Fin al Result * HEPATITIS PANEL, ACUTE W/REFLEX TO CONFIRMATION (03/06/2021 5:09 PM EDT) HEPATITIS A IGM NON-REACT JANIA NON-REACT JANIA [facility] Comment: ?? For additional information, please refer to ?? http://education.Mobile Accord/faq/ZIV213 ?? (This link is being provided for informational/ educational purposes only.) ?? HEPATITIS B CORE ANTIBODY (IGM) NON-REACT JANIA NON-REACT JANIA [facility] HEPATITIS B SURFACE ANTIGEN NON-REACT JANIA NON-REACT JANIA [facility] HEPATITIS C ANTIBODY NON-REACT JANIA NON-REACT JANIA [facility] INDEX 0.02 <1.00 [facility] Comment: ?? HCV antibody was non-reactive. There is no laboratory ?? evidence of HCV infection. ?? In most cases, no further action is required. However, if recent HCV exposure is suspected, a test for HCV RNA (test code 78116) is suggested. ?? For additional information please refer to http://education.[employer]ord/faq/DQX39z0 (This link is being provided for informational/ educational purposes only.) ?? 03/06/2021 5:09 PM EDT Sumi [facility] HISTORICAL/NON ORDERABLE LABS Fi nal Result Performing Organization Address [facility] Phone Number [facility] [address] * HIV AB/AG (02/26/2020 1:03 PM EDT) [facility] HIV AG/AB NONREACTIVE NR FOUNDATI ON [...] detection of this assay. ?? The [employer] Sales Representative [employer] HIV Ag/Ab Combo assay result and supplemental assay results should be interpreted in conjunction with the patient's clinical presentation, history and other laboratory results. ??If the results are inconsistent with clinical evidence, additional testing is suggested to confirm the result. 02/26/2020 1:03 PM EDT Aaron Harris MD HISTORICAL/NON ORDERA BLE LABS Final Result Performing Organization Address [facility] de Phone Number [facility] [address] from Last 3 Months or Most Recently Relevant to Health Maintenance Insurance [address] [place] [address] [place] [facility] [address] [address] [place] [address] [address] [place] [address] [address] [place] [address] Care Teams Sulfate Drier Machine Operator Relationship Specialty Start Date End Date Aaron Pisano MD [address] [place] [phone] PCP - General Internal Medicine 05/10/14 Antonietta Lim Drafter Civil EngineeringDrying Supervisor 09/18/24
[2024-11-21 07:43] LABS: H Pylori Breath Test Negative (Negative)
== END 2024-11-20 12:31 | disposition home or self-care (01) ==
LOC: HO.LNP 12:30
PROVIDERS: PCP Internal Medicine; Visit Provider Nurse Practitioner Family
DX: K21.9 Gastro-esophageal reflux disease without esophagitis (principal)
CPT/HCPCS: 83013; 99211

== ENCOUNTER 2024-11-20 12:30 | Outpatient (AMB) | payer MEDICAID, SELFPAY ==
--- NOTE | 2024-11-20 13:05 | AM.OFFVISNUR ---
Vital Signs 11/20/24 13:09 Height 4 ft 11 in Weight 196 lb BMI 39.6 BP 117/59 L Blood Pressure Location Lt brachial Position Sitting Pulse 63 Intake Visit Reasons: H Pylori Breath Test Intake Note: Patient presents for collection of H Pylori breath test. Patient has been fasting for 1 hour (nothing to eat, drink, no chewing gum or smoking) has not taken any antacid medication for at least 2 weeks and has no allergies to artificial sweeteners.?? Paint Technician Required: No Accompanied by: Self / Same As Patient Allergies tramadol Allergy (Intermediate, Verified 11/20/24 13:10) swelling buspirone [From BuSpar] Allergy (Mild, Verified 11/20/24 13:10) rash lamotrigine [From Lamictal] Allergy (Mild, Verified 11/20/24 13:10) Unknown naproxen Allergy (Unknown, Verified 11/20/24 13:10) anaphylaxis NSAIDS (Non-Steroidal Anti-Inflamma [NSAIDS (NON-STEROIDAL ANTI-INFLAMMA] Allergy (Unknown, Verified 11/20/24 13:10) ANAPHYLAXIS Penicillins [PENICILLINS] Allergy (Unknown, Verified 11/20/24 13:10) ANAPHYLAXIS methotrexate Allergy (Verified 11/20/24 13:10) Rash Assessment & Plan Assessment & Plan (1) GERD (gastroesophageal reflux disease): Code(s): K21.9 - Gastro-esophageal reflux disease without esophagitis Category: Medical Qualifiers: Esophagitis presence: esophagitis presence not specified Qualified Code(s): K21.9 - Gastro-esophageal reflux disease without esophagitis Plan Patient presents for collection of H Pylori breath test. Patient has been fasting for 1 hour (nothing to eat, drink, no chewing gum or smoking) has not taken any antacid medication for at least 2 weeks and has no allergies to artificial sweeteners.???This test checks for an overgrowth of bacteria in your stomach. We all have bacteria but some may have more than others. It is treatable. if the test comes back negative there is nothing else to do. If the test result is positive we will treat you with 2 antibiotics and a medication to decrease the acid in your stomach (PPI) for 2 weeks. Two weeks after you have completed the treatment we will retest you to make sure the overgrowth has resolved. Coding Level of Care Code Established Pt Est Pt Level 1 (73058) Patient Type Established Diagnoses Gastroesophageal reflux disease, unspecified whether esophagitis present K21.9 Esophagitis presence: esophagitis presence not specified
[2024-11-20 13:09] VITALS: BP 117/59; PULSE 63; BMI 39.6
--- OUTSIDE RECORDS SUMMARY | 2024-11-20 15:18 | XMS_ITS | Encounter Summary ---
Demographics Address [address] [place] [address] [address] [place] [address] Work Phone Home Phone Mobile Phone Email Address Preferred Language en Marital Status Single Evangelical Affiliation Unknown Race White Ethnic Group or Author Organization [employer] Address [address] [place] [address] 7t [place] [address] Care Team Providers Care Plumber Gasfitter Name Role Phone Aaron Pisano MD Primary Care Provide r Reason for Visit * Reason Comments Med Refill Encounter Details Date Type Department Care Team ([facility] st Contact Info) Description 01/30/2024 Refill [facility] MEDICINE 230 [place], [place] [phone] Aaron Pisano MD 230 [place], [place] [phone] Chronic midline low back pain without sciatica [...] Care Team (Late st Contact Info) Description 12/25/2024 1:00 PM EDT Telemedicine [facility] MEDICINE 230 [place] [address] Aaron Pisano MD 230 [place] [address] 01/14/2025 11:00 AM EDT Telemedicine [facility] CHC MED & PEDS 505 [place] [address] Altagracia Mancilla, GRACIELA 505 [place] [address] 01/31/2025 10:00 AM EDT Office Visit [facility] ADULT DENTAL 230 [place] [address] Zhanna Hernandez documented as of this encounter [...] documented as of this encounter Care Teams Plumber Gasfitter Relationship Specialty Start Date End Date Aaron Pisano MD 230 [place] [address] PCP - General Internal Medicine 05/10/14 Antonietta Lim Company Miner BlastingPattern Technician 09/18/24 documented as of this encounter
--- OUTSIDE RECORDS SUMMARY | 2024-11-20 15:18 | XMS_ITS | Encounter Summary ---
Demographics Address [address] [place] [address] [address] [place] [address] Work Phone Home Phone Mobile Phone Email Address Preferred Language en Marital Status Single Congregation Affiliation Unknown Race White Ethnic Group or Author Organization [employer] Address [address] [place] [address] 7t [place] [address] Care Team Providers Care Floor Winder Name Role Phone Aaron Pisano MD Primary Care Provide r Reason for Visit * Reason Onset Date Comments Reschedule 03/01/2024 Encounter Details Date Type Department Care Team ([facility] st Contact Info) Description 03/01/2024 Telephone [facility] MEDICINE 230 [place] [address] Aaron Pisano MD 230 [place] [address] Reschedule Social History Tobacco Use Types Packs/Day [...] a call back in order to r/s BEHAVIORAL TECHNICIAN appt documented in this encounter Plan of Treatment Upcoming Encounters Date Type Department Care Team (Late st Contact Info) Description 12/25/2024 1:00 PM EDT Telemedicine [facility] MEDICINE [address] [place] [address] Aaron Pisano MD 230 [place] [address] 01/14/2025 11:00 AM EDT Telemedicine [facility] CHC MED & PEDS 505 [place] [address] Altagracia Mancilla, GRACIELA 505 [place] [address] 01/31/2025 10:00 AM EDT Office Visit [facility] ADULT DENTAL 230 [place] [address] Zhanna Hernandez documented as of this encounter Goals Goal Patient Goal Type Associated Problems Recent Progress Patient-Stated? Author Blood Pressure < 140/90 Blood Pressure 118/64( 025 2:32 PM EST) Giovanna Edwards PharmD documented as of this encounter Visit Diagnoses Not on filedocumented in this encounter Additional Health Concerns Assessment Noted Time PHQ-9 Depression Total Score: 12 024 1:46 PM EST documented as of this encounter Care Teams Floor Winder Relationship Specialty Start Date End Date Aaron Pisano MD [address] [place] [address] PCP - General Internal Medicine 05/10/14 Antonietta Lim Flat ExaminerShactor 09/18/24 documented as of this encounter
--- OUTSIDE RECORDS SUMMARY | 2024-11-20 15:19 | XMS_ITS | Encounter Summary ---
Demographics Address [address] [place] [address] [address] [place] [address] Work Phone Home Phone Mobile Phone Email Address Preferred Language en Marital Status Single Evangelical Affiliation Unknown Race White Ethnic Group or Author Organization [employer] Address [address] [place] [address] 7t [place] [address] Care Team Providers Care Saxophone Assembler Name Role Phone Aaron Pisano MD Primary Care Provide r Reason for Visit * Reason Onset Date Comments Med Refill 11/16/2022 Encounter Details Date Type Department Care Team ([facility] st Contact Info) Description 11/16/2022 Telephone [facility] MEDICINE 230 [place] [address] Aaron Pisano MD 230 [place] [address] Med Refill Social History Tobacco Use Types [...] med refill status Please contact pt at [phone] * Telephone Encounter - Natasha Jain - 11/30/2022 1:14 PM EDT Tc from pt requesting medication status. Please contact pt at [phone] * Telephone Encounter - Jenny Smith - 11/16/2022 4:36 PM EDT Tc from pt requesting med refill for medication oxyCODONE (Roxicodone) 5 MG immediate release tablet. documented in this encounter Plan of Treatment Upcoming Encounters Date Type Department Care Team (Late st Contact Info) Description 12/25/2024 1:00 PM EDT Telemedicine [facility] MEDICINE 230 [place] [address] Aaron Pisano MD 230 [place] [address] 01/14/2025 11:00 AM EDT Telemedicine [facility] CHC MED & PEDS 505 [place] [address] Altagracia Mancilla, GRACIELA 505 [place] [address] 01/31/2025 10:00 AM EDT Office Visit [facility] ADULT DENTAL 230 [place] [address] Zhanna Hernandez documented as of this encounter Visit Diagnoses Not on filedocumented in this encounter Care Teams Saxophone Assembler Relationship Specialty Start Date End Date Aaron Pisano MD 230 [place] [address] PCP - General Internal Medicine 05/10/14 Antonietta Lim Plating Machine OperatorEpic Cupid Specialists 09/18/24 documented as of this encounter
--- OUTSIDE RECORDS SUMMARY | 2024-11-20 15:19 | XMS_ITS | Encounter Summary ---
Demographics Address [address] [place] [address] [address] [place] [address] Work Phone Home Phone Mobile Phone Email Address Preferred Language en Marital Status Single Restoration Affiliation Unknown Race White Ethnic Group or Author Organization [employer] Address [address] [place] [address] 7t [place] [address] Care Team Providers Care Cotton Acreage Measurer Name Role Phone Aaron Pisano MD Primary Care Provide r Reason for Visit * Reason Comments Med Refill Encounter Details Date Type Department Care Team ([facility] st Contact Info) Description 10/06/2023 Refill [facility] MEDICINE 230 [place], [place] [phone] Aaron Pisano MD 230 [place], [place] [phone] Chronic midline low back pain without sciatica [...] Info) Description 12/25/2024 1:00 PM EDT Telemedicine [facility] MEDICINE 230 [place] [address] Aaron Pisano MD 230 [place] [address] 01/14/2025 11:00 AM EDT Telemedicine [facility] CHC MED & PEDS 505 [place] [address] Altagracia Mancilla, GRACIELA 505 [place] [address] 01/31/2025 10:00 AM EDT Office Visit [facility] ADULT DENTAL 230 [place] [address] Zhanna Hernandez documented as of this encounter [...] documented as of this encounter Care Teams [place] Measurer Relationship Specialty Start Date End Date Aaron Pisano MD [address] [place] [address] PCP - General Internal Medicine 05/10/14 Antonietta Lim Managed Care LiaisonComponent Engineer 09/18/24 documented as of this encounter
--- OUTSIDE RECORDS SUMMARY | 2024-11-20 15:19 | XMS_ITS | Encounter Summary ---
Author Organization [employer] Address [address] [place] [address] 7 [place] [address] Care Team Providers Care Cable Tender Name Role Phone Aaron Pisano MD Primary Care Provide r Reason for Visit * Reason Comments Med Refill Encounter Details Date Type Department Care Team ([facility] Contact Info) Description 03/15/2023 Refill [facility] MEDICINE [address] [place] [phone] Aaron Pisano MD [address] [place] [address] [phone] Smoker Social History Tobacco Use Types Packs/Day [...] Upcoming Encounters Date Type Department Care Team ([facility] Contact Info) Description 12/25/2024 1:00 PM EDT Telemedicine [facility] MEDICINE 230 [place], [place] [phone] Aaron Pisano MD [address] [place] [address] [phone] 01/14/2025 11:00 AM EDT Telemedicine [facility] CHC MED & PEDS 505 [place] [address] Altagracia Mancilla, RN 505 [place] [address] 01/31/2025 10:00 AM EDT Office Visit [facility] ADULT DENTAL 230 [place] [address] Zhanna Hernandez documented as of this encounter Visit Diagnoses Diagnosis Smoker Tobacco use disorder documented in this encounter Care Teams Cable Tender Relationship Specialty Start Date End Date Aaron Pisano MD 230 [place] [address] PCP - General Internal Medicine 05/10/14 Antonietta Lim Letter Of Credit ClerkDope House Operator Helper 09/18/24 documented as of this encounter
--- OUTSIDE RECORDS SUMMARY | 2024-11-20 15:19 | XMS_ITS | Encounter Summary ---
Demographics Address [address] [place] [address] [address] [place] [address] Work Phone Home Phone Mobile Phone Email Address Preferred Language en Marital Status Single Sikhism Affiliation Unknown Race White Ethnic Group or Author Organization [employer] Address [address] [place] [address] 7t [place] [address] Care Team Providers Care Rehabilitation Services Director Name Role Phone Aaron Pisano MD Primary Care Provide r Reason for Visit * Reason Onset Date Comments Med Refill 08/12/2024 Encounter Details Date Type Department Care Team ([facility] st Contact Info) Description 08/12/2024 Refill [facility] MEDICINE 230 [place] [address] Aaron Pisano MD 230 [place] [address] Smoker Social History Tobacco Use Types Packs/Day [...] Info) Description 12/25/2024 1:00 PM EDT Telemedicine [facility] MEDICINE 230 [place] [address] Aaron Pisano MD 230 [place] [address] 01/14/2025 11:00 AM EDT Telemedicine [facility] CHC MED & PEDS 505 [place] [address] Altagracia Mancilla, GRACIELA 505 [place] [address] 01/31/2025 10:00 AM EDT Office Visit [facility] ADULT DENTAL 230 [place] [address] Zhanna Hernandez documented as of this encounter [...] documented as of this encounter Care Teams Rehabilitation Services Director Relationship Specialty Start Date End Date Aaron Pisano MD [address] [place] [address] PCP - General Internal Medicine 05/10/14 Antonietta Lim Curtain MenderVideo Surveillance Technician 09/18/24 documented as of this encounter
--- OUTSIDE RECORDS SUMMARY | 2024-11-20 15:19 | XMS_ITS | Encounter Summary ---
Demographics Address [address] [place] [address] [address] [place] [address] Work Phone Home Phone Mobile Phone Email Address Preferred Language en Marital Status Single Hinduism Affiliation Unknown Race White Ethnic Group or Author Organization [employer] Address [address] [place] [address] 7t [place] [address] Care Team Providers Care Medical Research Assistant Name Role Phone Aaron Pisano MD Primary Care Provide r Reason for Visit * Reason Comments Med Refill Encounter Details Date Type Department Care Team ([facility] st Contact Info) Description 05/07/2024 Refill [facility] MEDICINE 230 [place], [place] [phone] Aaron Pisano MD 230 [place], [place] [phone] Chronic midline low back pain without sciatica [...] Info) Description 12/25/2024 1:00 PM EDT Telemedicine [facility] MEDICINE 230 [place] [address] Aaron Pisano MD 230 [place] [address] 01/14/2025 11:00 AM EDT Telemedicine [facility] CHC MED & PEDS 505 [place] [address] Altagracia Mancilla, GRACIELA 505 [place] [address] 01/31/2025 10:00 AM EDT Office Visit [facility] ADULT DENTAL 230 [place] [address] Zhanna Hernandez documented as of this encounter [...] documented as of this encounter Care Teams Medical Research Assistant Relationship Specialty Start Date End Date Aaron Pisano MD 230 [place] [address] PCP - General Internal Medicine 05/10/14 Antonietta Lim Glass Products InspectorSenior Software Quality Engineer 09/18/24 documented as of this encounter
--- OUTSIDE RECORDS SUMMARY | 2024-11-20 15:19 | XMS_ITS | Encounter Summary ---
Demographics Address [address] [place] [address] [address] [place] [address] Work Phone Home Phone Mobile Phone Email Address Preferred Language en Marital Status Single Spiritism Affiliation Unknown Race White Ethnic Group or Author Organization [employer] Address [address] [facility] 7t [place] [address] Care Team Providers Care First Assistant Manager Name Role Phone Aaron Pisano MD Primary Care Provide r Reason for Visit * Reason Comments Med Refill Encounter Details Date Type Department Care Team ([facility] st Contact Info) Description 10/08/2024 Refill [facility] MEDICINE 230 [place], [place] [phone] Aaron Pisano MD 230 [place], [place] [phone] Diarrhea in adult patient; Chronic midline low back pain without sciatica [...] Description 12/25/2024 1:00 PM EDT Telemedicine [facility] MEDICINE 230 [place] [address] Aaron Pisano MD 230 [place] [address] 01/14/2025 11:00 AM EDT Telemedicine [facility] CHC MED & PEDS 505 [place] [address] Altagracia Mancilla, GRACIELA 505 [place] [address] 01/31/2025 10:00 AM EDT Office Visit [facility] ADULT DENTAL 230 [place] [address] Zhanna Hernandez documented as of this encounter Goals Goal Patient Goal Type Associated Problems Recent Progress Patient-Stated? Author Blood Pressure < 140/90 Blood Pressure 118/64( 025 2:32 PM EST) No Giovanna Banks, Carleen documented as of this encounter Visit Diagnoses Diagnosis Diarrhea in adult patient Chronic midline low back pain without sciatica documented in this encounter Additional Health Concerns Assessment Noted Time PHQ-9 Depression Total Score: 2 06/05/20 24 8:38 AM EDT documented as of this encounter Care Teams First Assistant Manager Relationship Specialty Start Date End Date Aaron Pisano MD [address] [place] [address] PCP - General Internal Medicine 05/10/14 Antonietta Lim District Manager Primary Care SalesSpecial Education Bus Driver 09/18/24 documented as of this encounter
--- OUTSIDE RECORDS SUMMARY | 2024-11-20 15:19 | XMS_ITS | Encounter Summary ---
Demographics Address [address] [place] [address] [address] [place] [address] Work Phone Home Phone Mobile Phone Email Address Preferred Language en Marital Status Single Hindu Affiliation Unknown Race White Ethnic Group or Author Organization [email or web address] Address [address] [facility] 7t [place] [address] Care Team Providers Care Biology Specimen Technician Name Role Phone Aaron Pisano MD Primary Care Provide r Reason for Visit * Reason Onset Date Comments Med Refill 11/07/2024 Encounter Details Date Type Department Care Team ([facility] st Contact Info) Description 11/07/2024 Refill [facility] MEDICINE 230 [place] [address] Aaron Pisano MD 230 [place] [address] Chronic midline low back pain without sciatica; Diarrhea in adult patient Social History Tobacco [...] Info) Description 12/25/2024 1:00 PM EDT Telemedicine [facility] MEDICINE 230 [place] [address] Aaron Pisano MD 230 [place] [address] 01/14/2025 11:00 AM EDT Telemedicine [facility] CHC MED & PEDS 505 [place] [address] Altagracia Mancilla, GRACIELA 505 [place] [address] 01/31/2025 10:00 AM EDT Office Visit [facility] ADULT DENTAL 230 [place] [address] Zhanna Hernandez documented as of this encounter Goals Goal Patient Goal Type Associated Problems Recent Progress Patient-Stated? Author Blood Pressure < 140/90 Blood Pressure 118/64( 025 2:32 PM EST) No Giovanna Banks, SohamD documented as of this encounter Visit Diagnoses Diagnosis Chronic midline low back pain without sciatica Diarrhea in adult patient documented in this encounter Additional Health Concerns Assessment Noted Time PHQ-9 Depression Total Score: 2 06/05/20 24 8:38 AM EDT documented as of this encounter Care Teams Biology Specimen Technician Relationship Specialty Start Date End Date Aaron Pisano MD [address] [place] [address] PCP - General Internal Medicine 05/10/14 Antonietta Lim Overnight StockerPelletizer Operator 09/18/24 documented as of this encounter
--- OUTSIDE RECORDS SUMMARY | 2024-11-20 15:19 | XMS_ITS | Encounter Summary ---
Demographics Address [address] [place] [address] [address] [place] [address] Work Phone Home Phone Mobile Phone Email Address Preferred Language en Marital Status Single Lutheran Affiliation Unknown Race White Ethnic Group or Author Organization [employer] Address [address] [place] [address] 7t [place] [address] Care Team Providers Care Dumper Mold Cleaner Name Role Phone Aaron Pisano MD Primary Care Provide r Reason for Visit * Reason Onset Date Comments Med Refill 08/24/2022 Encounter Details Date Type Department Care Team ([facility] st Contact Info) Description 08/24/2022 Telephone [facility] MEDICINE 230 [place] [address] Aaron Pisano MD 230 [place] [address] Med Refill Social History Tobacco Use Types [...] Info) Description 12/25/2024 1:00 PM EDT Telemedicine [facility] MEDICINE 230 [place] [address] Aaron Pisano MD 230 [place] [address] 01/14/2025 11:00 AM EDT Telemedicine [facility] CHC MED & PEDS 505 [place], [place] [phone] Altagracia Mancilla RN 505 [place], [place] [phone] 01/31/2025 10:00 AM EDT Office Visit [facility] ADULT DENTAL 230 [place] [address] Zhanna Hernandez documented as of this encounter Visit Diagnoses Not on filedocumented in this encounter Care Teams Dumper Mold Cleaner Relationship Specialty Start Date End Date Aaron Pisano MD 230 [place] [address] PCP - General Internal Medicine 05/10/14 Antonietta Lim Hot Roll InspectorPhotoengraving Helper 09/18/24 documented as of this encounter
--- OUTSIDE RECORDS SUMMARY | 2024-11-20 15:19 | XMS_ITS | Encounter Summary ---
Demographics Address [address] [place] [address] [address] [place] [address] Work Phone Home Phone Mobile Phone Email Address Preferred Language en Marital Status Single Jainism Affiliation Unknown Race White Ethnic Group or Author Organization [employer] Address [address] [place] [address] 7 [place] [address] Care Team Providers Care Editor In Chief Name Role Phone Aaron Pisano MD Primary Care Provide r Reason for Visit * Reason Onset Date Comments Med Refill 04/04/2023 Encounter Details Date Type Department Care Team ([facility] st Contact Info) Description 04/04/2023 Telephone [facility] MEDICINE 230 [place] [address] Aaron Pisano MD 230 [place] [address] Med Refill Social History Tobacco Use Types [...] Miscellaneous Notes * Telephone Encounter - Jennifer Bgigs - 04/04/2023 11:48 AM EDT Tc from patient requesting a med refill on medication oxyCODONE (Roxicodone) 5 MG immediate releasetablet. PCP Dr. De Jesus documented in this encounter Plan of Treatment Upcoming Encounters Date Type Department Care Team (Late st Contact Info) Description 12/25/2024 1:00 PM EDT Telemedicine [facility] MEDICINE 230 [place] [address] Aaron Pisano MD 230 [place] [address] 01/14/2025 11:00 AM EDT Telemedicine [facility] CHC MED & PEDS 505 [place], [place] [phone] Altagracia Mancilla, GRACIELA 505 [place], [place] [phone] 01/31/2025 10:00 AM EDT Office Visit [facility] ADULT DENTAL 230 [place] [address] Zhanna Hernandez documented as of this encounter Goals Goal Patient Goal Type Associated Problems Recent Progress Patient-Stated? Author Blood Pressure < 140/90 Blood Pressure 118/64( 025 2:32 PM EST) No Giovanna Banks, SohamD documented as of this encounter Visit Diagnoses Not on filedocumented in this encounter Care Teams Editor In Chief Relationship Specialty Start Date End Date Aaron Pisano MD 230 [place] [address] PCP - General Internal Medicine 05/10/14 Antonietta Lim Bobbin Coil WinderLanding Signal Officer 09/18/24 documented as of this encounter
--- OUTSIDE RECORDS SUMMARY | 2024-11-20 15:19 | XMS_ITS | Encounter Summary ---
Author Organization [employer] Address [address] [place] [address] 7t [place] [address] Care Team Providers Care Air Moving Technician Name Role Phone Aaron Pisano MD Primary Care Provide r Reason for Visit * Reason Comments Med Refill Encounter Details Date Type Department Care Team ([facility] Contact Info) Description 04/18/2023 Refill [facility] MEDICINE 230 [place] [address] Aaron Pisano MD 230 [place] [address] Chronic bilateral low back pain without sciatica [...] Upcoming Encounters Date Type Department Care Team ([facility] Contact Info) Description 12/25/2024 1:00 PM EDT Telemedicine [facility] MEDICINE 230 [place], [place] [phone] Aaron Pisano MD 230 [place] [address] 01/14/2025 11:00 AM EDT Telemedicine [facility] CHC MED & PEDS 505 [place] [address] Altagracia Mancilla, RN [address] [place] [address] 01/31/2025 10:00 AM EDT Office Visit [facility] ADULT DENTAL 230 [place] [address] Zhanna Hernandez documented as of this encounter Goals Goal Patient Goal Type Associated Problems Recent Progress Patient-Stated? Author Blood Pressure < 140/90 Blood Pressure 118/64( 025 2:32 PM EST) Giovanna Edwards, Carleen documented as of this encounter Visit Diagnoses Diagnosis Chronic bilateral low back pain without sciatica documented in this encounter Care Teams Air Moving Technician Relationship Specialty Start Date End Date Aaron Pisano MD 230 [place] [address] PCP - General Internal Medicine 05/10/14 Antonietta Lim Continuity ManagerBurn Out Scarfing Operator 09/18/24 documented as of this encounter
--- OUTSIDE RECORDS SUMMARY | 2024-11-20 15:19 | XMS_ITS | Encounter Summary ---
Demographics Address [address] [place] [address] [address] [place] [address] Work Phone Home Phone Mobile Phone Email Address Preferred Language en Marital Status Single Faith Affiliation Unknown Race White Ethnic Group or Author Organization [employer] Address [address] [place] [address] 7t [place] [address] Care Team Providers Care Appraiser Timber Name Role Phone Aaron Pisano MD Primary Care Provide r Encounter Details Date Type Department Care Team (Latest Contact Info) Description 11/10/2020 Abstract [facility] CONVERSIONS Dental, Provider, DDS Social History [...] Info) Description 12/25/2024 1:00 PM EDT Telemedicine [facility] MEDICINE 230 [place] [address] Aaron Pisano MD 230 [place] [address] 01/14/2025 11:00 AM EDT Telemedicine [facility] CHC MED & PEDS 505 [place] [address] Altagracia Mancilla, GRACIELA 505 [place] [address] 01/31/2025 10:00 AM EDT Office Visit [facility] ADULT DENTAL 230 [place] [address] Zhanna Hernandez documented as of this encounter Visit Diagnoses Not on filedocumented in this encounter Care Teams Appraiser Timber Relationship Specialty Start Date End Date Aaron Pisano MD 230 [place] [address] PCP - General Internal Medicine 05/10/14 Antonietta Lim Data Entry ManagerMaterial Worker 09/18/24 documented as of this encounter
--- OUTSIDE RECORDS SUMMARY | 2024-11-20 15:19 | XMS_ITS | Encounter Summary ---
Demographics Address [address] [place] [address] [address] [place] [address] Work Phone Home Phone Mobile Phone Email Address Preferred Language en Marital Status Single Quaker Affiliation Unknown Race White Ethnic Group or Author Organization [employer] Address [address] [place] [address] 7t h Floor [address] Care Team Providers Care Extended Day Teacher Name Role Phone Aaron Pisano MD Primary Care Provide r Reason for Visit * Reason Onset Date Comments Med Refill 08/12/2024 Encounter Details Date Type Department Care Team ([facility] st Contact Info) Description 08/12/2024 Refill [facility] MED[facility] 230 [place] [address] Aaron Pisano MD 230 [place] [address] Social History Tobacco Use Types Packs/Day Years [...] the past 12 months, has t he [employer], gas, oil or water company threatened to [...] Info) Description 12/25/2024 1:00 PM EDT Telemedicine [facility] MEDICINE 230 [place] [address] Aaron Pisano MD 230 [place] [address] 01/14/2025 11:00 AM EDT Telemedicine [facility] CHC MED & PEDS 505 [place] [address] Altagracia Mancilla, GRACIELA 505 [place] [address] 01/31/2025 10:00 AM EDT Office Visit [facility] ADULT DENTAL 230 [place] [address] Zhanna Hernandez documented as of this encounter [...] documented as of this encounter Care Teams Extended Day Teacher Relationship Specialty Start Date End Date Aaron Pisano MD [address] [place] [address] PCP - General Internal Medicine 05/10/14 Antonietta Lim Package Delivery DriverValve Technician 09/18/24 documented as of this encounter
--- OUTSIDE RECORDS SUMMARY | 2024-11-20 15:19 | XMS_ITS | Encounter Summary ---
Demographics Address [address] [place] [address] [address] [place] [address] Work Phone Home Phone Mobile Phone Email Address Preferred Language en Marital Status Single Denominational Affiliation Unknown Race White Ethnic Group or Author Organization [employer] Address [address] [place] [address] 7 [place] [address] Care Team Providers Care Compounding And Finishing Supervisor Name Role Phone Aaron Pisano MD Primary Care Provide r Reason for Visit * Reason Onset Date Comments Med Refill 09/14/2022 Encounter Details Date Type Department Care Team ([facility] st Contact Info) Description 09/14/2022 Telephone [facility] MEDICINE 230 [place] [address] Aaron Pisano MD 230 [place] [address] Med Refill Social History Tobacco Use Types [...] Info) Description 12/25/2024 1:00 PM EDT Telemedicine [facility] MEDICINE 230 [place] [address] Aaron Pisano MD 230 [place] [address] 01/14/2025 11:00 AM EDT Telemedicine [facility] CHC MED & PEDS 505 [place], [place] [phone] Altagracia Mancilla, GRACIELA 505 [place] [address] 01/31/2025 10:00 AM EDT Office Visit [facility] ADULT DENTAL 230 [place] [address] Zhanna Hernandez documented as of this encounter Visit Diagnoses Not on filedocumented in this encounter Care Teams Compounding And Finishing Supervisor Relationship Specialty Start Date End Date Aaron Pisano MD 230 [place] [address] PCP - General Internal Medicine 05/10/14 Antonietta Lim Pathology Laboratory Aides TeacherPricing Analyst 09/18/24 documented as of this encounter
--- OUTSIDE RECORDS SUMMARY | 2024-11-20 15:19 | XMS_ITS | Encounter Summary ---
Demographics Address [address] [place] [address] [address] [place] [address] Work Phone Home Phone Mobile Phone Email Address Preferred Language en Marital Status Single Anabaptist Affiliation Unknown Race White Ethnic Group or Author Organization [employer] Address [address] [place] [address] 7t [place] [address] Care Team Providers Care Informatica Architect Name Role Phone Aaron Pisano MD Primary Care Provide r Reason for Visit * Reason Onset Date Comments Med Refill 08/02/2024 Encounter Details Date Type Department Care Team ([facility] st Contact Info) Description 08/02/2024 Telephone [facility] MEDICINE 230 [place] [address] Aaron Pisano MD 230 [place] [address] Med Refill Social History Tobacco Use Types [...] the past 12 months, has t he [employer], gas, oil or water company threatened to [...] Info) Description 12/25/2024 1:00 PM EDT Telemedicine [facility] MEDICINE 230 [place] [address] Aaron Pisano MD [address] [place] [address] 01/14/2025 11:00 AM EDT Telemedicine [facility] CHC MED & PEDS 505 [place] [address] Altagracia Mancilla, GRACIELA 505 [place] [address] 01/31/2025 10:00 AM EDT Office Visit [facility] ADULT DENTAL 230 [place] [address] Zhanna Hernandez documented as of this encounter [...] documented as of this encounter Care Teams Informatica Architect Relationship Specialty Start Date End Date Aaron Pisano MD 230 [place] [address] PCP - General Internal Medicine 05/10/14 Antonietta Lim Cdl A DriverChili Pepper Grinder 09/18/24 documented as of this encounter
--- OUTSIDE RECORDS SUMMARY | 2024-11-20 15:19 | XMS_ITS | Encounter Summary ---
Demographics Address [address] [place] [address] [address] [place] [address] Work Phone Home Phone Mobile Phone Email Address [email or web address] Preferred Language en Marital Status Single Protestant Affiliation Unknown Race White Ethnic Group or Author Organization [employer] Address [address] [place] [address] 7t [place] [address] Care Team Providers Care Head Rigger Name Role Phone Aaron Pisano MD Primary Care Provide r Reason for Visit * Reason Comments Med Refill Encounter Details Date Type Department Care Team ([facility] Contact Info) Description 02/18/2023 Refill [facility] MEDICINE 230 [place] [address] Aaron Pisano MD 230 [place] [address] Social History Tobacco Use Types Packs/Day Years [...] Upcoming Encounters Date Type Department Care Team ([facility] Contact Info) Description 12/25/2024 1:00 PM EDT Telemedicine [facility] MEDICINE 230 [place] [address] Aaron Pisano MD 230 [place] [address] 01/14/2025 11:00 AM EDT Telemedicine [facility] CHC MED & PEDS 505 [place] [address] Altagracia Mancilla, GRACIELA 505 [place] [address] 01/31/2025 10:00 AM EDT Office Visit [facility] ADULT DENTAL 230 [place] [address] Zhanna Hernandez documented as of this encounter Visit Diagnoses Not on filedocumented in this encounter Care Teams Head Rigger Relationship Specialty Start Date End Date Aaron Pisano MD 230 [place] [address] PCP - General Internal Medicine 05/10/14 Antonietta Lim Metal Casket MakerGrocery Clerk Marking 09/18/24 documented as of this encounter
--- OUTSIDE RECORDS SUMMARY | 2024-11-20 15:19 | XMS_ITS | Encounter Summary ---
Demographics Address [address] [place] [address] [address] [place] [address] Work Phone Home Phone Mobile Phone Email Address Preferred Language en Marital Status Single Sikh Affiliation Unknown Race White Ethnic Group or Author Organization [employer] Address [address] [place] [address] Care Team Providers Care Hydroelectric Systems Technician Name Role Phone Aaron Pisano MD Primary Care Provide r Reason for Visit * Reason Onset Date Comments Med Refill 06/01/2023 Encounter Details Date Type Department Care Team (Late st Contact Info) Description 06/01/2023 Refill [facility] [address] [place] [address] Sumi Vang, ANP [address] [place] [address] Chronic midline low back pain without sciatica [...] with others, in a hotel, in a senior living, living outside on the street, on a [...] 12/25/2024 1:00 PM EDT Telemedicine [facility] MED[facility]INE [address] [place] [id number] Aaron Pisano MD [address] [place] [phone] 01/14/2025 11:00 AM EDT Telemedicine [facility] [address] [place] [address] Altagracia Mancilla, RN [address] [place] [address] 01/31/2025 10:00 AM EDT Office Visit [facility] D[facility] [address] [place] [address] Zhanna Hernandez documented as of this encounter Goals Goal Patient Goal Type Associated Problems Recent Progress Patient-Stated? Author Blood Pressure < 140/90 Blood Pressure 118/64( 025 2:32 PM EST) No Giovanna Banks, Carleen documented as of this encounter Visit Diagnoses Diagnosis Chronic midline low back pain without sciatica documented in this encounter Care Teams Hydroelectric Systems Technician Relationship Specialty Start Date End Date Aaron Pisano MD [address] [place] [phone] PCP - General Internal Medicine 05/10/14 Antonietta iL[employer] Assurance ManagerInspector Process 09/18/24 documented as of this encounter
--- OUTSIDE RECORDS SUMMARY | 2024-11-20 15:19 | XMS_ITS | Encounter Summary ---
Demographics Address [address] [place] [address] [address] [place] [address] Work Phone Home Phone Mobile Phone Email Address Preferred Language en Marital Status Single Buddhist Affiliation Unknown Race White Ethnic Group or Author Organization [employer] Address [address] [place] [address] 7[address] [place] [address] Care Team Providers Care Apple Packing Header Name Role Phone Aaron Pisano MD Primary Care Provide r Reason for Visit * Reason Onset Date Comments Med Refill 11/16/2022 Encounter Details Date Type Department Care Team ([facility] st Contact Info) Description 11/16/2022 Telephone [facility] [address] [place] [address] Aaron Pisano MD [address] [place] [address] Med Refill Social History Tobacco Use Types [...] MG immediate release tablet Please sent to [facility] - [place], [place] - [address] [facility] documented in this encounter Plan of Treatment Upcoming Encounters Date Type Department Care Team (Late st Contact Info) Description 12/25/2024 1:00 PM EDT Telemedicine [facility] [address] [place] [address] Aaron Pisano MD [address] [place] [address] 01/14/2025 11:00 AM EDT Telemedicine [facility] [address] [place] [address] Altagracia Mancilla, GRACIELA [address] [place] [address] 01/31/2025 10:00 AM EDT Office Visit [facility] ADULT DENT[facility] [address] [place] [address] Zhanna Hernandez documented as of this encounter Visit Diagnoses Not on filedocumented in this encounter Care Teams Apple Packing Header Relationship Specialty Start Date End Date Aaron Pisano MD [address] [place] [address] PCP - General Internal Medicine 05/10/14 Antonietta Lim [employer] ManagerMedia Consultant Outside Sales 09/18/24 documented as of this encounter
--- OUTSIDE RECORDS SUMMARY | 2024-11-20 15:19 | XMS_ITS | Clinical Summary ---
Demographics Address [address] [place] [address] [address] [place] [address] Work Phone Home Phone Mobile Phone Email Address Preferred Language en Marital Status Single Jew Affiliation Unknown Race White Ethnic Group or Author Organization [employer] Address [address] [place] [address] [address] [place] [address] Care Team Providers Care Frog Farmer Name Role Phone Aaron Pisano MD Primary [...] OR SHORTNESS OF BREATH 02/15/20 24 Active cetirizine (ZyrTEC) 10 MG tabletIndicat [...] MILD PAIN 60 tablet 08/13/19 25 Active esomeprazole (NexIUM) [address] capsuleIndica tions:Cough in adult patient TAKE 1 CAPSULE BY MOUTH TWICE DAILY IN THE MORNING AND IN THE EVENING 180 capsule 08/21/19 25 Active furosemide (Lasix) 40 MG tabletIndicat ions:Primary hypertension, Vasculitis (CMS/HCC) TAKE 1 TABLET BY MOUTH EVERY MORNING 90 tablet 1 08/28/19 25 Active azithromycin (Zithromax Z-Silvano) 250 MG tabletIndicat ions:Breast cyst, right Take 2 tabs po x 1 day then 1 tab po daily x 4 days 6 tablet 09/06/19 25 Active ondansetron (Zofran) 4 MG tablet [...] MORNING 90 tablet 1 09/20/19 25 Active loperamide (Anti-Diarrhe al) 2 MG tabletIndicat ions:Diarrhea in adult patient TAKE 2 TABLETS BY MOUTH TODAY THEN TAKE 1 TABLET AFTER EACH WATERY STOOL. NO MORE THAN 8 TABLETS PER 24 HOURS 7 tablet 10/10/19 25 Active baclofen (Lioresal) 10 MG tabletIndicat ions:Chronic bilateral low back pain without sciatica TAKE 1 TABLET BY MOUTH TWICE DAILY IN THE MORNING AND AT BEDTIME NEEDED FOR MUSCLE SPASMS 60 tablet 1 10/24/19 25 Active cholecalcifer ol (D3 Super Strength) 50 MCG (2000 UT) capsuleIndica tions:Seasona l allergies TAKE 1 CAPSULE BY MOUTH EVERY MORNING 90 capsule 1 10/24/19 25 Active diphenhydrAMI NE (Laureen-Dryl) 25 MG tabletIndicat ions:Intracta ble vomiting with nausea TAKE 1 TABLET BY MOUTH THREE TIMES DAILY BEFORE MEALS NEEDED FOR NAUSEA AND VOMITING 90 tablet 1 11/02/19 25 Active oxyCODONE (Roxicodone) 5 MG immediate release tabletIndicat ions:Chronic midline low back pain without sciatica Take 1 tablet (5 mg) by mouth every 12 (twelve) hours if needed for severe pain. 56 tablet 11/08/19 25 Active cholecalcifer ol (D3 Super Strength) 50 MCG (2000 UT) capsuleIndica tions:Seasona l allergies Take 1 capsule (50 mcg) by mouth in the morning. 90 capsule 1 05/03/20 24 025 Discontinued(R eorder (will not trigger notification to Pharmacy)) diphenhydrAMI NE (Laureen-Dryl) 25 MG tabletIndicat ions:Intracta ble vomiting with nausea TAKE 1 TABLET BY MOUTH THREE TIMES DAILY BEFORE MEALS NEEDED FOR NAUSEA AND VOMITING 90 tablet 1 08/16/19 25 025 Discontinued baclofen (Lioresal) 10 MG tabletIndicat ions:Chronic bilateral low back pain without sciatica TAKE 1 TABLET BY MOUTH TWICE DAILY IN THE MORNING AND AT BEDTIME NEEDED FOR MUSCLE SPASMS 60 tablet 1 08/16/19 25 025 Discontinued oxyCODONE (Roxicodone) 5 MG immediate release tabletIndicat ions:Chronic midline low back pain without sciatica Take 1 tablet (5 mg) by mouth every 12 (twelve) hours if needed for severe pain. 56 tablet 10/10/19 25 025 Discontinued(R eorder (will not trigger notification to Pharmacy)) Active Problems Problem Noted Date Diagnosed Date Long-term current use of opiate analgesic 2024 Breast cyst, right 09/06/2024 Assessment & Plan [...] Prednisone. She is under the care of Cashier Manager Dr Newberry. She is on Prednisone 2 [...] of a psychotherapist and a psychiatrist. At [facility] Pt is no longer on Abilify nor Clonidine. She is now on Geodon Assessment & Plan (08/03/2022 9:22 AM EST): Pt under the care of a psychotherapist and a psychiatrist. At [facility] started on Abilify 7.5 mg po daily [...] most recently seen by Dr Rodas at [facility] 06/15/2024 who recommended PRN follow up [...] (08/23/2023 1:51 PM EST): Previously referred to [facility] Comprehensive weight management program. Seen twice, they prompter to discuss with her mental health provider her eating habits before they would consider accepting her into the program Assessment & Plan (12/30/2022 3:28 PM EDT): Previously referred to [facility] Comprehensive weight management program Assessment & Plan (08/03/2022 1:48 PM EST): Referred to [facility] Comprehensive weight management program Genital herpes [...] EST): Seen in the past by an Trimmer Operator (Dr. Dozier) Under the care of Clare Carlin The last US on record done at [facility] 01/2019 showed a hypoechoic well circumscribed [...] Encounters Date Type Department Care Team Description 11/20/2024 Refill [facility] MEDICINE [address] [place] [address] Aaron Pisano MD Cough in adult patient 11/07/2024 Refill [facility] MEDICINE [address] [place] [address] Aaron Pisano MD Chronic midline low back pain without sciatica 11/07/2024 Refill [facility] MEDICINE [address] [place] [address] Aaron Pisano MD Chronic midline low back pain without sciatica; Diarrhea in adult patient 11/01/2024 Refill [facility] MEDICINE [address] [place] [address] Aaron Pisano MD Intractable vomiting with nausea 10/22/2024 Refill [facility] MEDICINE [address] [place] [address] Aaron Pisano MD Seasonal allergies 10/21/2024 Refill [facility] MEDICINE [address] [place] [address] Aaron Pisano MD Chronic bilateral low back pain without sciatica; Seasonal allergies 10/19/2024 Population Health Risk Score [facility] () Department [address] [place] [phone] Provider, Population Health Generic 10/18/2024 11:00 AM EDT Clinical Support [facility] [address] [place] [address] Altagracia Mancilla RN Chronic bilateral low back pain without sciatica (Primary Dx); Long-term current use of opiate analgesic 10/18/2024 Travel 10/08/2024 Refill [facility] MEDICINE [address] [place] [address] Aaron Pisano MD Diarrhea in adult patient; Chronic midline low back pain without sciatica 10/05/2024 Refill [facility] MEDICINE [address] [place] [address] Aaron Pisano MD Chronic midline low back pain without sciatica; Diarrhea in adult patient 09/20/2024 Refill [facility] MEDICINE [address] [place], [place] [address] Aaron Pisano MD 09/18/2024 Telephone [facility] [address] [facility] [place] [address] Aaron Pisano MD Care Coordination ([facility] Electric System Operator ) 09/11/2024 Refill [facility] [address] [place] [address] Aaron Pisano MD 09/10/2024 Refill [facility] MED[facility] [address] [facility] [place] [address] Aaron Pisano MD Diarrhea in adult patient 09/06/2024 2:30 PM EST Office Visit [facility] [place] [address] Aaron Pisano MD Routine physical examination (Primary Dx); Routine health maintenance; Positive LUCRETIA (antinuclear antibody); Mild intermittent asthma without complication; Chronic midline low back pain without sciatica; Breast cyst, right 09/06/2024 Travel 08/27/2024 Orders Only GENERIC EXTERNAL DATA DEPARTMENT Provider, Generic External Data 08/24/2024 Patient Outreach [facility] [place] [address] Aaron Pisano MD Care Coordination (CHW outreach for SDOH PT-1 and food needs-referral completed /) 08/24/2024 Telephone [facility] [place] [address] Aaron Pisano MD Chart Prep 08/24/2024 Patient Outreach [facility] [place] [phone] Aaron Pisano MD Pre-visit Planning (SDOH Screening posible and Tobacco screening negative) 08/23/2024 Refill [facility] [place] [address] Aaron Pisano MD Primary hypertension; Vasculitis (CMS/HCC) from Last 3 Months Immunizations Name Administration [...] Info) Description 12/25/2024 1:00 PM EDT Telemedicine [facility] MEDICINE [address] [place] [address] Aaron Pisano MD [address] [place] [address] 01/14/2025 11:00 AM EDT Telemedicine [facility] MED & PEDS [address] [place] [address] Altagracia Mancilla, GRACIELA [address] [place] [address] 01/31/2025 10:00 AM EDT Office Visit [facility] ADULT DENTAL [address] [place] [address] Zhanna Hernandez Health Maintenance Due Date Last [...] Procedure Name Priority Date/Time Associated Diagnosis Comments POCT WANDA-14 URINE DRUG SCREEN Routine 10/18/2024 11:15 AM EDT Long-term current use of opiate analgesic Chronic bilateral low back pain without sciatica VITAMIN D 25-OH (D2 AND D3) Routine [...] EST CBC Routine 08/27/2024 11:30 AM EST PROPHYLAXIS - ADULT Routine 07/26/2024 1 1:00 AM EST Dental calculus Dental plaque PERIODIC ORAL EVALUATION - ESTABLISHED PATIENT Routine 07/26/2024 11:00 AM EST LIPID PANEL, STANDARD Routine 04/30/2024 2:25 PM [...] Recently Relevant to Health Maintenance Results * POCT WANDA-14 Urine Drug Screen (10/18/2024 11:15 AM EDT) THC Positive Oxycodone Screen, Urine Positive Urine Urine specimen obtained by clean catch procedure / Unknown 10/18/2024 11:15 AM EDT Narrative Altagracia Mancilla RN - 10/18/2024 11:15 AM EDT Lot# [id number] Exp: 03-27-26 Aaron Harris MD POINT OF CARE TEST EN TER/EDIT ORDERABLES Final Result * VITAMIN D 25-OH (D2 AND D3) (08/27/2024 11:30 AM EST) Vitamin D, 25-OH, D2 <4 ng/mL [facility] Comment:This test was develo ped and its analytical performancecharacteristics have been determined by [employer] [place]. It hasnot been cleared or approved by the U.S. Food and DrugAdministration. This assay has been validated pursuantto the CLIA regulations and is used for clinicalpurposes.THIS TEST WAS PERFORMED AT:[employer] [place] [id number] CARRANZA MD,PHD Vitamin D, 25-OH, D3 56 ng/mL [facility] Comment:This test was develo ped and its analytical performancecharacteristics have been determined by [employer] [place], [place]. It hasnot been cleared or approved by the U.S. Food and DrugAdministration. This assay has been validated pursuantto the CLIA regulations and is used for clinicalpurposes. Vitamin D, 25-OH, Total 56 30 - 100 ng/mL [facility] Comment:Vitamin D, 25-Hydrox y reports concentrations [...] = 30 ng/mL.For additional information, please refer tohttp://education.Expensify/faq/IMI324(This link is being provided for informational/educational purposes only.) 08/27/2024 11:3 0 AM EST 08/27/2024 11:30 AM EST us Generic External Data Provider LAB BLOOD ORDERAB LES Final Result [facility] [address] [place] [address] [phone] * Vitamin B12 (Cobalamin) and Folate Panel, Serum (08/27/2024 11:30 AM EST) Vitamin B12 427 200 - 900 pg/mL [facility] Comment:NORMAL 200-900 PG/ML INDETERMINATE 160-199 PG/ML DEFICIENT < 160 PG/ML Folate 5.0 > or = 4.0 ng/mL [facility] Comment:Reference Values:> o r = 4.0 ng/mL< 4.0 ng/mL suggests folate deficiency Methotrexate, aminopterin and folinic acid(leucovorin) are chemotherapeutic agents whose molecularstructures are similar to folate; therefore, the Architectfolate assay cannot be used for patients using these drugs. 08/27/2024 11:3 0 AM EST 08/27/2024 11:30 AM EST Generic External Data Provider LAB BLOOD ORDERAB LES Final Result Performing Organization Address [facility] Co de Phone Number [facility] [address] [place] [phone] * TSH with Reflex to Free T4 (08/27/2024 11:30 AM EST) TSH reflex Free T4 1.62 0.32 - 4.0 uIU/mL [facility] 08/27/2024 11:3 0 AM EST 08/27/2024 11:30 AM EST Generic External Data Provider LAB BLOOD ORDERAB LES Final Result Performing Organization Address [facility] de Phone Number [facility] [address] [place] [phone] * Tissue Transglutaminase Antibody, IgA (08/27/2024 11:30 AM EST) Transglutaminase IgA <1.0 U/mL [facility] Comment:Value Interpretation ----- <15.0 Antibody not detected> or = 15.0 Antibody detectedTHIS TEST WAS PERFORMED AT:[employer] [place] [id number] REDMOND MD 08/27/2024 11:3 0 AM EST 08/27/2024 11:30 AM EST us Generic External Data Provider LAB BLOOD ORDERAB LES Final Result [facility] [address] [place] [phone] * (ABNORMAL) CBC (08/27/2024 11:30 AM EST) White Blood Count 12.9(H) 4.8 - 10.8 X10*3/uL [facility] Red Blood Count 4.82 4.20 - 5.50 X10*6/uL [facility] Hemoglobin 12.9 12.0 - 16.0 g/dl [facility] Hematocrit 40.4 37.0 - 47.0 % [facility] Mean Corpuscular Volume 83.8 80.0 - 98.0 fL [facility] Mean Corpuscular Hemoglobin 26.8(L) 27.0 - 33.0 pg [facility] Mean Corpuscular HGB Conc 31.9 31.0 - 35.0 g/dl [facility] Red Cell Distribution Width 14.8 11.0 - 16.0 % [facility] Platelet Count 368 160 - 400 X10*3/uL [facility] Mean Platelet Volume 10.3 9.4 - 12.3 fL [facility] NRBC Pct Auto 0.0 0.0 - 0.2 /100WBC [facility] NRBC Abs Auto 0.000 0.0 - 0.012 X10*3/uL [facility] 08/27/2024 11:3 0 AM EST 08/27/2024 11:30 AM EST us Generic External Data Provider LAB BLOOD ORDERAB LES Final Result Performing Organization Address City/[facility]/ZIP Co de Phone Number [facility] [address] [place] [phone] * (ABNORMAL) C-reactive Protein (08/27/2024 11:30 AM EST) C Reactive Protein 2.22(H) < or = 0.50 mg/dL [facility] 08/27/2024 11:3 0 AM EST 08/27/2024 11:30 AM EST us Generic External Data Provider LAB BLOOD ORDERAB LES Final Result Performing Organization Address [facility]/ZIP Co de Phone Number [facility] [address] [place] [phone] * Lipase (08/27/2024 11:30 AM EST) Lipase 14 8 - 78 U/L [facility] 08/27/2024 11:3 0 AM EST 08/27/2024 11:30 AM EST Generic External Data Provider LAB BLOOD ORDERAB LES Final Result Performing Organization Address [facility] Co de Phone Number [facility] [address] [place] [phone] * Comprehensive Metabolic Panel (08/27/2024 11:30 AM EST) Sodium 141 135 - 145 mmol/L [facility] Potassium 3.8 3.3 - 5.1 mmol/L [facility] Chloride 104 96 - 108 mmol/L [facility] Carbon Dioxide 27 22 - 29 mmol/L [facility] Anion Gap 14 12 - 20 [facility] Urea Nitrogen (BUN) 15 9 - 16 mg/dL [facility] Creatinine, Serum 0.80 0.5 - 1.4 mg/dL [facility] Estimated Glomerular Filt Rate >60 [facility] Comment:Chronic Kidney Disea se: Estimated GFR < 60 mL/min/1.14i2Mhomlu Kidney Disease: Estimated GFR < 15 mL/min/1.73m2 Glucose 75 60 - 115 mg/dL [facility] Calcium 9.1 8.4 - 10.2 mg/dL [facility] Bilirubin, Total 0.4 0.0 - 1.0 mg/dL [facility] Aspartate Amino Transferase 19 5 - 31 U/L [facility] Alanine Aminotransferase 10 0 - 31 U/L [facility] Total Protein 8.0 6.5 - 8.0 g/dL [facility] Albumin Level 4.2 3.5 - 5.0 g/dL [facility] Alkaline Phosphatase 102 39 - 117 U/L [facility] 08/27/2024 11:3 0 AM EST 08/27/2024 11:30 AM EST us Generic External Data Provider LAB BLOOD ORDERAB LES Final Result [facility] [address] [place] [phone] * (ABNORMAL) Lipid Panel, Standard (04/30/2024 2:25 PM EDT) Triglycerides 173(H) <150 mg/dL [facility] Comment:Desirable Triglyceri de: less than 150 mg/dLBorderline High Triglyceride 150-199 mg/dLHigh Triglyceride: 200-499 mg/dLVery High Triglyceride: greater than or equal to 5OO mg/dL Cholesterol 213(H) <200 mg/dL [facility] Comment:Desirable Cholestero l: less than 200 mg/dLBorderline High Cholesterol: 200-239 mg/dLHigh Cholesterol: greater than 239 mg/dL LDL Cholesterol Calculated 134(H) <100 mg/dL [facility] Comment:Desirable LDL: less than 100 mg/dLNear Optimal/Above Optimal LDL: 110- 129 mg/dLBorderline High LDL: 130-159 mg/dLHigh LDL: 160-189 mg/dLVery High LDL: greater than or equal to 190 mg/dL HDL Cholesterol 45 >40 mg/dL [facility] Comment:Desirable HDL: great er than 40 mg/dL Note: This HDL assay may give artificially low results in patients with liver disease. Blood Venous blood specimen / Unknown 04/30/2024 2:25 PM EDT 04/30/2024 4:57 PM EDT us Aaron Harris MD LAB BLOOD ORDERABLES Final Result [facility] [address] [place] [phone] * BI Mammogram Screening Tomosynthesis Bilateral (01/26/2024 1:45 PM EDT) Anatomical Region Laterality Modality Breast Bilateral Mammography 01/26/2024 1:45 PM EDT Narrative 02/24/2024 2:20 PM EDT ? [facility] ? [address] ?[place] [address] ? Mammography Report ? Signed ? Patient: Zee Villanueva A ?MR#: [id number] ?? [id number] ? : 1975 ?Acct:[id number] ? Age/Sex: 48 / F ?ADM Date: 01/26/24 ? Loc: HO.MAMMO ? Attending Dr: Aaron Carcamo MD ? Ordering Physician: Aaron Carcamo MD ?Resu ?? lts: 1Negative ? Date of Service: 01/26/24 ?Follow Up: 1 Year From Orig ?? inal Mammogram ? Procedure(s): MM tomosynthesis screening BI ?? Accession Number(s): [id number] ? cc: Aaron Carcamo MD ? EXAMINATION: [...] 1417 ? DD/ 1345 ? TD/TT: ? Apron Man: ? Procedure Note Kyle Villarreal - 02/24/2024 [facility] [address] [place] [address] [place]. [place], [place] [address] Mammography Report Signed Patient: Zee Villanueva [facility]#: [id number] : 1975Acct:[id number] Age/Sex: 48 / FADM Date: 01/26/24 Loc: [facility] Attending Dr: Aaron Carcamo MD Ordering Physician: Aaron Carcamo MDResu lts: 1Negative Date of Service: 01/26/24Follow Up: 1 Year From Orig ina Mammogram Procedure(s): MM tomosynthesis screening BI Accession Number(s): [id number] cc: Aaron Carcamo MD EXAMINATION: MM SCREENING [...] in OV> 02/24/24 1417 DD/ 1345 TD/TT: Apron Man: us Aaron Harris MD IMG BI PROCEDURES Fin al Result * HEPATITIS PANEL, ACUTE W/REFLEX TO CONFIRMATION (03/06/2021 5:09 PM EDT) HEPATITIS A IGM NON-REACT JANIA NON-REACT J[facility] Comment: ?? For additional information, please refer to ?? http://education.The Library.Sqord/faq/HAJ089 ?? (This link is being provided for informational/ educational purposes only.) ?? HEPATITIS B CORE ANTIBODY (IGM) NON-REACT JANIA NON-REACT JANIA [facility] HEPATITIS B SURFACE ANTIGEN NON-REACT JANIA NON-REACT JANIA [facility] HEPATITIS C ANTIBODY NON-REACT JANIA NON-REACT JANIA [facility] INDEX 0.02 <1.00 [facility] Comment: ?? HCV antibody was non-reactive. There is no laboratory ?? evidence of HCV infection. ?? In most cases, no further action is required. However, if recent HCV exposure is suspected, a test for HCV RNA (test code 26383) is suggested. ?? For additional information please refer to http://education.TiVUS/faq/MTB07c7 (This link is being provided for informational/ educational purposes only.) ?? 03/06/2021 5:09 PM EDT us Sumi [facility] HISTORICAL/NON ORDERABLE LABS Fi nal Result Performing Organization Address [facility] de Phone Number [facility] Anywhere [address] * HIV AB/AG (02/26/2020 1:03 PM EDT) Pathologist [facility] HIV AG/AB NONREACTIVE NR [facility] ON LAB [...] detection of this assay. ?? [employer] HIV Ag/Ab Combo assay result and supplemental assay results should be interpreted in conjunction with the patient's clinical presentation, history and other laboratory results. ??If the results are inconsistent with clinical evidence, additional testing is suggested to confirm the result. 02/26/2020 1:03 PM EDT Aaron Harris MD HISTORICAL/NON ORDERA BLE LABS Final Result Performing Organization Address [facility] de Phone Number [facility] Anywhere [address] from Last 3 Months or Most Recently Relevant to Health Maintenance Insurance [address] [place] [address] [place] [place] [address] [address] [place] [address] [address] [place] [address] Care Teams Frog Farmer Relationship Specialty Start Date End Date Aaron Pisano MD [address] [place] [address] PCP - General Internal Medicine 05/10/14 Antonietta Lim Wet Process TechnicianAirfield Operations Specialist 09/18/24
--- OUTSIDE RECORDS SUMMARY | 2024-11-20 15:19 | XMS_ITS | Encounter Summary ---
Demographics Address [address] [place] [address] [address] [place] [address] Work Phone Home Phone Mobile Phone Email Address Preferred Language en Marital Status Single Tenriism Affiliation Unknown Race White Ethnic Group or Author Organization [employer] Address [address] [facility] 7t [place] [address] Care Team Providers Care Senior Engineering Technician Name Role Phone Aaron Pisano MD Primary Care Provide r Reason for Visit * Reason Comments Med Refill Encounter Details Date Type Department Care Team ([facility] st Contact Info) Description 11/20/2024 Refill [facility] MEDICINE 230 [place], [place] [phone] Aaron Pisano MD [address] [place], [place] [phone] Cough in adult patient Social History Tobacco Use [...] Info) Description 12/25/2024 1:00 PM EDT Telemedicine [facility] MEDICINE 230 [place] [address] Aaron Pisano MD [address] [place] [address] 01/14/2025 11:00 AM EDT Telemedicine [facility] CHC MED & PEDS 505 [place] [address] Altagracia Mancilla, GRACIELA 505 [place] [address] 01/31/2025 10:00 AM EDT Office Visit [facility] ADULT DENTAL 230 [place] [address] Zhanna Hernandez documented as of this encounter Goals Goal Patient Goal Type Associated Problems Recent Progress Patient-Stated? Author Blood Pressure < 140/90 Blood Pressure 118/64( 025 2:32 PM EST) Giovanna Edwards, Carleen documented as of this encounter Visit Diagnoses Diagnosis Cough in adult patient documented in this encounter Additional Health Concerns Assessment Noted Time PHQ-9 Depression Total Score: 2 06/05/20 24 8:38 AM EDT documented as of this encounter Care Teams Senior Engineering Technician Relationship Specialty Start Date End Date Aaron Pisano MD [address] [place] [address] PCP - General Internal Medicine 05/10/14 Antonietta Lim Practicing UrologistTerrazzo Polisher 09/18/24 documented as of this encounter
--- OUTSIDE RECORDS SUMMARY | 2024-11-20 15:19 | XMS_ITS | Encounter Summary ---
Demographics Address [address] [place] [address] [address] [place] [address] Work Phone Home Phone Mobile Phone Email Address Preferred Language en Marital Status Single Episcopalian Affiliation Unknown Race White Ethnic Group or Author Organization [employer] Address [address] [facility] 7t [place] [address] Care Team Providers Care Permaculture Designer Name Role Phone Aaron Pisano MD Primary Care Provide r Reason for Visit * Reason Comments Med Refill Encounter Details Date Type Department Care Team ([facility] st Contact Info) Description 07/07/2023 Refill [facility] MEDICINE 230 [place], [place] [phone] Aaron Pisano MD 230 [place], [place] [phone] Social History Tobacco Use Types Packs/Day Years Used Date Smoking Tobacco: Former Cigarettes Passive Smoke Exposure: Never Smokeless Tobacco: Never Alcohol Use Standard Drinks/Week Comments Never 0 (1 standard drink = 0.6 oz pur e alcohol) Housing Stability Answer Date Recorded What is your housing situation today? I do not have housing (Staying with others, in a hotel, in a intermediate, living outside on the street, on a [...] 12/25/2024 1:00 PM EDT Telemedicine [facility] MEDICINE [address] [place] [address] Aaron Pisano MD 230 [place] [address] 01/14/2025 11:00 AM EDT Telemedicine [facility] CHC MED & PEDS 505 [place], [place] [phone] Altagracia Mancilla, GRACIELA 505 [place] [address] 01/31/2025 10:00 AM EDT Office Visit [facility] ADULT DENTAL 230 [place] [address] Zhanna Hernandez documented as of this encounter Goals Goal Patient Goal Type Associated Problems Recent Progress Patient-Stated? Author Blood Pressure < 140/90 Blood Pressure 118/64( 025 2:32 PM EST) No Giovanna Banks, PharmD documented as of this encounter Visit Diagnoses Not on filedocumented in this encounter Care Teams Permaculture Designer Relationship Specialty Start Date End Date Aaron Pisano MD [address] [place] [address] [phone] PCP - General Internal Medicine 05/10/14 Antonietta Lim Director Global SalesExtruder Operator Multiple 09/18/24 documented as of this encounter
--- OUTSIDE RECORDS SUMMARY | 2024-11-20 15:19 | XMS_ITS | Encounter Summary ---
Demographics Address [address] [place] [address] [address] [place] [address] Work Phone Home Phone Mobile Phone Email Address Preferred Language en Marital Status Single Nondenominational Affiliation Unknown Race White Ethnic Group or Author Organization [employer] Address [address] [facility] 7t [place] [address] Care Team Providers Care Card Player Name Role Phone Aaron Pisano MD Primary Care Provide r Reason for Visit * Reason Comments Med Refill Encounter Details Date Type Department Care Team ([facility] st Contact Info) Description 07/04/2023 Refill [facility] CHC MED & PEDS 505 [place], [place] [phone] Sumi Vang, ANP [address] [facility] [place] [address] Social History Tobacco Use Types Packs/Day Years [...] Info) Description 12/25/2024 1:00 PM EDT Telemedicine [facility] MEDICINE [address] [place] [phone] Aaron Pisano MD [address] [place] [address] 01/14/2025 11:00 AM EDT Telemedicine [facility] CHC MED & PEDS 505 [place], [place] [phone] Altagracia Mancilla, GRACIELA 505 [place] [address] 01/31/2025 10:00 AM EDT Office Visit [facility] ADULT DENTAL 230 [place] [address] Zhanna Hernandez documented as of this encounter Goals Goal Patient Goal Type Associated Problems Recent Progress Patient-Stated? Author Blood Pressure < 140/90 Blood Pressure 118/64( 025 2:32 PM EST) No Giovanna Banks, SohamD documented as of this encounter Visit Diagnoses Not on filedocumented in this encounter Care Teams Card Player Relationship Specialty Start Date End Date Aaron Pisano MD [address] [place] [address] PCP - General Internal Medicine 05/10/14 Antonietta Lim Commercial Shrimping CaptainMock Up Builder 09/18/24 documented as of this encounter
--- OUTSIDE RECORDS SUMMARY | 2024-11-20 15:19 | XMS_ITS | Encounter Summary ---
Demographics Address [address] [place] [address] [address] [place] [address] Work Phone Home Phone Mobile Phone Email Address Preferred Language en Marital Status Single Hindu Affiliation Unknown Race White Ethnic Group or Author Organization [employer] Address [address] [facility] 7t [place] [address] Care Team Providers Care Grease Man Name Role Phone Aaron Pisano MD Primary Care Provide r Reason for Visit * Reason Comments Med Refill Encounter Details Date Type Department Care Team ([facility] st Contact Info) Description 08/09/2023 Refill [facility] MEDICINE 230 [place] [address] Sumi Vang, ANP 230 [place] [address] Chronic midline low back pain without sciatica [...] with others, in a hotel, in a mcfp, living outside on the street, on a [...] Info) Description 12/25/2024 1:00 PM EDT Telemedicine [facility] MEDICINE [address] [place] [address] Aaron Pisano MD [address] [place] [address] 01/14/2025 11:00 AM EDT Telemedicine [facility] CHC MED & PEDS 505 [place] [address] Altagracia Mancilla, GRACIELA 505 [place] [address] 01/31/2025 10:00 AM EDT Office Visit [facility] ADULT DENTAL 230 [place] [address] Zhanna Hernandez documented as of this encounter Goals Goal Patient Goal Type Associated Problems Recent Progress Patient-Stated? Author Blood Pressure < 140/90 Blood Pressure 118/64( 025 2:32 PM EST) No Giovanna Banks, Carleen documented as of this encounter Visit Diagnoses Diagnosis Chronic midline low back pain without sciatica documented in this encounter Care Teams Grease Man Relationship Specialty Start Date End Date Aaron Pisano MD [address] [place] [address] PCP - General Internal Medicine 05/10/14 Antonietta Lim Wire StretcherRetail Product Demo Specialist 09/18/24 documented as of this encounter
--- OUTSIDE RECORDS SUMMARY | 2024-11-20 15:19 | XMS_ITS | Encounter Summary ---
Demographics Address [address] [place] [address] [address] [place] [address] Work Phone Home Phone Mobile Phone Email Address Preferred Language en Marital Status Single Islam Affiliation Unknown Race White Ethnic Group or Author Organization [employer] Address [address] [place] [address] 7t [place] [address] Care Team Providers Care Helpdesk Technician Name Role Phone Aaron Pisano MD Primary Care Provide r Encounter Details Date Type Department Care Team (Latest Contact Info) Description 07/16/2019 Abstract [facility] CONVERSIONS Dental, Provider, DDS Social [...] Info) Description 12/25/2024 1:00 PM EDT Telemedicine [facility] MEDICINE 230 [place] [address] Aaron Pisano MD 230 [place] [address] 01/14/2025 11:00 AM EDT Telemedicine [facility] CHC MED & PEDS 505 [place] [address] Altagracia Mancilla, GRACIELA 505 [place] [address] 01/31/2025 10:00 AM EDT Office Visit [facility] ADULT DENTAL 230 [place] [address] Zhanna Hernandez documented as of this encounter Visit Diagnoses Not on filedocumented in this encounter Care Teams Helpdesk Technician Relationship Specialty Start Date End Date Aaron Pisano MD 230 [place] [address] PCP - General Internal Medicine 05/10/14 Antonietta Lim Head Of Transport LogisticsFamily Day Care Provider 09/18/24 documented as of this encounter
--- OUTSIDE RECORDS SUMMARY | 2024-11-20 15:19 | XMS_ITS | Encounter Summary ---
Demographics Address [address] [place] [address] [address] [place] [address] Work Phone Home Phone Mobile Phone Email Address Preferred Language en Marital Status Single Restoration Affiliation Unknown Race White Ethnic Group or Author Organization [employer] Address [address] [place] [address] 7t [place] [address] Care Team Providers Care Family Health Nurse Practitioner Name Role Phone Aaron Pisano MD Primary Care Provide r Reason for Visit * Reason Onset Date Comments Nurse Triage 02/21/2023 Encounter Details Date Type Department Care Team ([facility] st Contact Info) Description 02/21/2023 Telephone [facility] MEDICINE 230 [place] [address] Aaron Pisano MD 230 [place] [address] Nurse Triage Social History Tobacco Use Types [...] 4:45 PM EDT Please assist with obtaining [facility] ED discharge notes for 02/10/23. This technical proposal writer does not have Prot-On access. Pt sent to ER after visit with [facility]. * Telephone Encounter - Leora Campbell RN - 02/21/2023 4:39 PM EDT Call to Zee Villanueva , reports having vomiting since seen at [facility] ER. Per pt was given abx for UTI and zofran. Per pt completed abx. Per pt continues to have vomiting. 5 episodes of vomiting in last 24 hours. No blood or green bile in vomit. Pt still taking chantix. Pt offered WIC tomorrow. Pt declines needs appt 3 days out for PT1. Agrees to visit with hayward team provider. Reviewed home care advise and reasons to call back. Future Appointments Date Time Provider Department Center 02/25/2023 9:30 AM DUY Taveras MEDICINE [facility] 03/21/2023 1:00 PM Giovanna Payne PharmD MEDICINE [facility] 04/27/2023 3:00 PM Aniya Anderson RN MEDICINE [facility] Multiple (2) protocols were used on this [...] You become worse * Telephone Encounter - Tiffanytamiko Rodriguez Cristobal - 02/21/2023 4:33 PM EDT Symptom: Vomiting Outcome: Schedule an urgent appointment (within 4 hours) or talk to a nurse or provider soon Reason: Vomited at least once in the past 8 hours The caller accepted this outcome Please contact pt at [phone] Pt was at [facility] hospital on 02/10/2023 for same symptoms. documented in this encounter Plan of Treatment Upcoming Encounters Date Type Department Care Team (Late st Contact Info) Description 12/25/2024 1:00 PM EDT Telemedicine [facility] MEDICINE 230 [place] [address] Aaron Pisano MD 230 [place] [address] 01/14/2025 11:00 AM EDT Telemedicine [facility] CHC MED & PEDS 505 [place] [address] Altagracia Mancilla, GRACIELA 505 [place] [address] 01/31/2025 10:00 AM EDT Office Visit [facility] ADULT DENTAL 230 [place] [address] Zhanna Hernandez documented as of this encounter Visit Diagnoses Not on filedocumented in this encounter Care Teams Family Health Nurse Practitioner Relationship Specialty Start Date End Date Aaron Pisano MD [address] [place] [address] PCP - General Internal Medicine 05/10/14 Antonietta Lim Life Skills InstructorVault Cashier 09/18/24 documented as of this encounter
== END 2024-11-20 13:33 | disposition home or self-care (01) ==
LOC: HO.HGI 12:30
PROVIDERS: PCP Internal Medicine; Visit Provider Nurse Practitioner Family
DX: K21.9 Gastro-esophageal reflux disease without esophagitis (principal)

== ENCOUNTER 2024-12-28 12:43 | Outpatient (AMB) | payer MEDICAID, SELFPAY ==
--- OUTSIDE RECORDS SUMMARY | 2024-12-28 12:45 | XMS_ITS | Encounter Summary ---
Demographics Address [address] [place] [address] [address] [place] [address] Work Phone Home Phone Mobile Phone Email Address Preferred Language en Marital Status Single Evangelical Affiliation Unknown Race White Ethnic Group Unknown Author Organization [employer] Address [address] [place] [address] [address] [place] [address] Care Team Providers Care Electrolytic De Scaler Name Role Phone Aaron Pisano MD Primary Care Provide r Reason for Visit * Reason Comments Med Refill Encounter Details Date Type Department Care Team ([facility] st Contact Info) Description 01/30/2024 Refill [facility] MED[facility] [address] [place], [place] [phone] Aaron Pisano MD [address] [place] [address] Chronic midline low back pain without sciatica [...] is your housing situation today? I have ellaenoch luna 08/15/[address] you [...] Care Team (Late st Contact Info) Description 01/14/2025 11:00 AM EDT Telemedicine [facility] MED & PEDS [address] [place] [address] Altagracia Mancilla, RN [address] [place] [address] 01/31/2025 10:00 AM EDT Office Visit [facility] ADULT DENTAL [address] [place] [address] Zhanna Hernandez documented as of this encounter [...] documented as of this encounter Care Teams Electrolytic De Scaler Relationship Specialty Start Date End Date Aaron Pisano MD [address] [place] [address] PCP - General Internal Medicine 05/10/14 Antonietta Lim Roofing Machine OperatorBridge Painter 09/18/24 documented as of this encounter
--- NOTE | 2024-12-28 12:47 | MHC.OFFVIS ---
Vital Signs 12/28/24 12:51 Height 4 ft 11 in Weight 207 lb 10.807 oz BMI 41.9 BP 115/68 Blood Pressure Location Rt brachial Position Sitting Pulse 78 Pulse Source Pulse Oximeter Pulse Oximetry (%) 99 Oxygen Delivery Method Room Air Intake Visit Reasons: vasculitis rash/ MD lupeq sooner appt Intake Note: Patient presents for Vasculitis rash follow up. Allergies tramadol Allergy (Intermediate, Verified 12/28/24 12:50) swelling buspirone [From BuSpar] Allergy (Mild, Verified 12/28/24 12:50) rash lamotrigine [From Lamictal] Allergy (Mild, Verified 12/28/24 12:50) Unknown naproxen Allergy (Unknown, Verified 12/28/24 12:50) anaphylaxis NSAIDS (Non-Steroidal Anti-Inflamma [NSAIDS (NON-STEROIDAL ANTI-INFLAMMA] Allergy (Unknown, Verified 12/28/24 12:50) ANAPHYLAXIS Penicillins [PENICILLINS] Allergy (Unknown, Verified 12/28/24 12:50) ANAPHYLAXIS methotrexate Allergy (Verified 12/28/24 12:50) Rash Medication List - Last Reconciled 12/28/24 by Khushi Alfaro MD acetaminophen ER (Tylenol Arthritis Pain) 650 mg PO Q8H PRN albuterol sulfate 2.5 mg (3 mL) inhalation Q6-8H 30 days albuterol sulfate 90 mcg/actuation (Ventolin HFA) 2 puffs PO Q4-6H PRN baclofen 10 mg PO BID cetirizine (Zyrtec) 10 mg PO DAILY cholecalciferol (vitamin D3) 50 mcg PO DAILY 30 days diphenhydramine HCl (Laureen-Dryl) 25 mg PO TID PRN doxycycline hyclate 100 mg PO BID 14 days esomeprazole magnesium (Nexium) 40 mg PO BID fluconazole 150 mg PO ONCE fluticasone propion-salmeterol 250-50 mcg/dose (Advair Diskus) 1 ea PO BID fluticasone propionate 50 mcg/actuation 1 spray intranasal BID furosemide (Lasix) 40 mg PO DAILY hydroxyzine HCl 10 mg PO QID PRN loperamide (Anti-Diarrheal (loperamide)) mg PO loratadine 10 mg PO DAILY losartan 25 mg PO DAILY methylcellulose (laxative) (Citrucel) 1,000 mg (2 x 500 mg) PO DAILY metoclopramide HCl (Reglan) 5 mg PO TIDWMEAL metronidazole 1,000 mg (2 x 500 mg) PO BID miconazole nitrate 2% (Monistat 7) 1 appful vaginal BEDTIME mirabegron ER (Myrbetriq) 25 mg PO QAM montelukast 10 mg PO BEDTIME nicotine (polacrilex) 4 mg PO Q2H PRN ondansetron 4 mg PO Q8H PRN oxycodone 5 mg PO Q6H PRN sumatriptan succinate mg PO topiramate 100 mg PO BEDTIME valacyclovir (Valtrex) 1,000 mg PO DAILY varenicline tartrate 1 mg PO DAILY zolpidem ER 12.5 mg PO BEDTIME PRN HPI Comments Details: Patient is a 49-year-old female with asthma, allergies, GERD, hypertension, overactive bladder, osteoarthritis of the knees and biopsy-proven leukocytoclastic vasculitis here today for follow up Interval History: Patient last seen 06/15/[address] Rodas. At that time she was establishing care for her leukocytoclastic vasculitis. She did not have any active rashes or any active disease and so no immunosuppression was warranted Patient today states that she had a return of her rash about few weeks ago however was scared to come back to the office because the previous provider had told her that because she did not have active rashes or active disease he would not treat her with any medication. She took 40 mg of prednisone that she had at home and the rash cleared up. Subsequently she was having eye redness and pain and she saw Ophthalmology and was diagnosed with episcleritis for which she is currently using topical steroid drops Currently denies any rashes Denies shortness of breath, frothy urine or blood in the urine. No sinus issues or recurrent sinus infections Rheumatologic History: Initial history by Dr. Rodas after reestablishing care: 48-year-old female with history of leukocytoclastic vasculitis presents for follow-up. She was last seen by Dr. Smith more than 3 years ago. In 2019 patient had leukocytoclastic vasculitis. She states that skin biopsy confirmed the diagnosis. It has involved both her legs her arms. It was treated with prednisone. Patient worked up for systemic vasculitis multiple times and no evidence of systemic vasculitis was found. Patient states that since 2019 she had another attack of vasculitis involving her skin about a year and a half ago, treated with prednisone. Has not had any other recurrences. She states that she was evaluated by belt puncher Dr. Cano in 2 or 3 years ago and methotrexate was suggested. She was told that she has rheumatoid arthritis and osteoarthritis. Currently patient states that she gets intermittent left ankle pain and tingling and numbness when she stands in the shower. Gets intermittent knee pain. No significant swelling. She denies any history of DVT/PE Initial history by Dr. Smith 05/21/2020: Patient diagnosed with leukocytoclastic vasculitis in April 2020 after presenting with a diffuse painful rash on her bilateral elbows and bilateral lower extremities. Her symptoms began in February 2020 and have since significantly improved. She was treated with a prednisone taper, Bactrim, as well as a topical cream. She has been following with dermatology regularly for this. Her rash has significantly improved, she only has a few lesions left on her left ankle / foot. The pain associated with the rash is also significantly improved. She denies any associated fevers, rash on her face, dyspnea, hemoptysis, nose bleeds, oral or nasal ulcers, joint swelling or joint pain, no foamy /frothy urine. Patient has a history of knee osteoarthritis. She was started on methotrexate in October 2017 for her knee pain but was then switched to Arava after 1 month due to weight gain. She had no relief of her knee pain with either of these medications. Arava was stopped in July 2018 as the were no signs of an inflammatory arthritis present. Current Rheumatology Medication(s): [facility] Medical History GERD (gastroesophageal reflux disease) Asthma exacerbation Sinusitis Somnolence, daytime Snoring Morbid obesity Cough Asthma Allergic rhinitis Obesity (BMI 30-39.9) PCOS (polycystic ovarian syndrome) Vitamin D deficiency Surgical History History of bladder surgery Hx of dilation and curettage Hx of section Hx laparoscopic cholecystectomy Hx of tooth extraction Hx of hysterectomy Family History Father Heart disease Mother Diabetes mellitus Raynaud disease Paternal Grandfather Diabetes mellitus Paternal Uncle Diabetes mellitus Social History Household Members: Children Housing: House Do you presently have visiting nurse or other home services: No (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, 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) Alcohol intake: current Alcohol intake frequency: a few times a month Alcohol type: wine Patient Tobacco Use Status: Former Tobacco user Tobacco use type: Cigarette Cigarettes Per Day: 3 Second Hand Smoke Exposure: No Substance Use Type: Marijuana Advance Directives Date on File: 01/12/22 service: No Current occupational status: unemployed Review of Systems Const Details: Review of Systems Constitutional: Denies fever, chills, weight loss ENT: Denies vision changes, eye pain or eye redness, dental caries, dry mouth GI: Denies nausea, vomiting, diarrhea, abdominal pain, change in BM Pulm: Denies SOB, [place], hemoptysis, wheezing Cards: Denies chest pain, palpitations Skin: Denies Raynaud's, nail changes, photosensitivity, 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 Well appearing and in no apparent painful distress HEENT Conjunctiva and sclera clear. ?Pupils equal round and reactive to light. ?No lymphadenopathy. ? CHEST/RESPIRATORY SYSTEM Normal respiratory effort and able to speak in complete sentences. ?Clear to auscultation bilaterally. ?No crackles, rales, rhonchi, wheezes heard. CARDIAC SYSTEM Regular rate and rhythm. ?S1 and S2 heard no murmurs. ?Radial pulses intact bilaterally MSK Hands: ?Able to make a fist. No synovitis noted to the MCPs, PIPs or DIPs. ?No tenderness to palpation of these joints. No deformities noted. ? Wrists: ?Full range of motion at the wrists without pain. ?No tenderness to palpation or synovitis noted to the wrists. Elbows: Full range of motion without pain. No tenderness, weakness, swelling, increased warmth or erythema. Shoulders: Full range of active range of motion without pain. No tenderness, weakness, swelling, increased warmth or erythema. Knees: ?Full range of motion. ?No tenderness, swelling, increased warmth or erythema.? Bilateral crepitations felt Ankles: Full range of motion. ?No tenderness, swelling, increased warmth or erythema.? Feet: ?Negative squeeze test. ?No tenderness to palpation or swelling of the MTPs. Tender points:?No tenderness to palpation of the bilateral trapezius, supraspinatus, greater trochanters, anterior costochondral junctions, bilateral gluteal areas, bilateral suboccipital muscle insertions SKIN Skin intact without rashes. Results Reviewed Results Reviewed: Laboratory Tests 04/30/24 08/27/24 14:25 11:30 WBC 12.9 H RBC 4.82 Hgb 12.9 Hct 40.4 Plt Count 368 ESR 43 H Sodium 141 Potassium 3.8 Chloride 104 Carbon Dioxide 27 BUN 15 Creatinine 0.80 AST 19 ALT 10 Alkaline Phosphatase 102 C-Reactive Protein 2.22 H 25-OH Vitamin D Total 56 Rheumatology labs 02/26/20 05/21/20 13:03 10:20 Cryoglobulin Negative Rheumatoid Factor < 15.0 LUCRETIA Screen Positive H LUCRETIA Titer 1:320 H Proteinase 3 (PR3) Ab <1.0 Myeloperoxidase Ab <1.0 Assessment & Plan Assessment & Plan (1) Leukocytoclastic vasculitis: Code(s): M31.0 - Hypersensitivity angiitis Category: Medical Plan: #Leukocytoclastic vasculitis Patient is a 49-year-old female with biopsy-proven leukocytoclastic vasculitis here today for follow up. Her last episode of this was in 2019 which responded to prednisone. Since then she has not had any flares up until about a few weeks ago when she had a return of the rash for which she self diagnosed and took prednisone for. In addition to this she is currently being treated for episcleritis by her Sanitarian Inspector. We will check labs today including urine. Given her diagnosis of episcleritis I think she warrants treatment. We will follow up in 2 weeks and consider immunosuppression at the time Plan - Check CBC, CMP, ESR, CRP, immunoglobulins, UA, upc, T spot, hepatitis panel, Anca, cryoglobulin - RTC 2 weeks Plan I spent 30 minutes reviewing the record and labs, taking a history, examining the patient, discussing the treatment plan, ordering diagnostic work up, reviewing ophthalmology notes, and documenting in the medical record Orders: Orders Complete Blood Count Auto Diff Today M31.0 - Hypersensitivity angiitis Erythrocyte Sedimentation Rate Today M31.0 - Hypersensitivity angiitis Protein Creatinine Ratio, Ur Today M31.0 - Hypersensitivity angiitis T Spot TB Today M31.0 - Hypersensitivity angiitis Immunoglobulins,IgG IgA IgM Today M31.0 - Hypersensitivity angiitis Comprehensive Met. Panel Today M31.0 - Hypersensitivity angiitis C Reactive Protein Today M31.0 - Hypersensitivity angiitis UA w Microscopic Today M31.0 - Hypersensitivity angiitis Hepatitis A,B,C Profile Today M31.0 - Hypersensitivity angiitis ANCA Vasculitides Today M31.0 - Hypersensitivity angiitis Cryoglobulin Today M31.0 - Hypersensitivity angiitis Coding Level of Care Code Est Pt Level 4 (69494) Complex EM visit Add On G2211 Diagnoses Leukocytoclastic vasculitis M31.0
[2024-12-28 12:51] VITALS: BP 115/68; PULSE 78; O2SAT 99; BMI 41.9
== END 2024-12-28 14:00 | disposition home or self-care (01) ==
LOC: HO.RHE 12:43
PROVIDERS: PCP Internal Medicine; Visit Provider Student in an Organized Health Care Education/Training Program
DX: M31.0 Hypersensitivity angiitis (principal)
CPT/HCPCS: 99214

== ENCOUNTER 2024-12-28 12:43 | Outpatient (REF) | payer MEDICAID, SELFPAY ==
[2024-12-28 14:28] LABS: MANUAL DIFF FLAG NO
[2024-12-28 16:07] LABS: Basophils Absolute Auto 0.1 X10*3/uL (0.0-0.2); Basophils Percent Auto 1.1 % (0-2); Eosinophils Absolute Auto 0.3 X10*3/uL (0.0-0.4); Eosinophils Percent Auto 2.5 % (0-4); Hematocrit 40.6 % (37.0-47.0); Hemoglobin 13.5 g/dl (12.0-16.0); Imm Gran Abs Auto 0.06 X10*3/uL (0.00-0.03); Imm Gran Pct Auto 0.5 % (0.0-0.4); Lymphocytes Absolute Auto 2.3 X10*3/uL (1.2-4.9); Lymphocytes Percent Auto 17.6 % (20-40); Mean Corpuscular HGB Conc 33.3 g/dl (31.0-35.0); Mean Corpuscular Hemoglobin 27.3 pg (27.0-33.0); Mean Platelet Volume 10.3 fL (9.4-12.3); Monocytes Percent Auto 7.5 % (2-11); Neutrophils Absolute Auto 9.3 x10*3/uL (2.0-8.3); Neutrophils Percent Auto 70.8 % (45-73); Platelet Count 377 X10*3/uL (160-400); Red Blood Count 4.95 X10*6/uL (4.20-5.50); Red Cell Distribution Width 14.1 % (11.0-16.0); White Blood Count 13.1 X10*3/uL (4.8-10.8)
[2024-12-28 16:25] LABS: Appearance Urine Clear; Color Urine Yellow; Glucose Urine UA Negative (Negative); Leukocyte Esterase Urine Trace (Negative); Nitrite Urine Negative (Negative); PH 5.5 (5.0-9.0); Specific Gravity - Urine <= 1.005 (1.005-1.025); UMIC TRIGGER UA YES; Urine Blood Negative (Negative); Urine Ketones Negative (Negative); Urine Protein Negative (Neg-Trace)
[2024-12-28 16:29] LABS: Bacteria Urine 1+ (None Seen); Hyaline Casts Urine 0-2 /LPF (0-2); RBC Urine 0-2 /HPF (0-2); Squamous Epithelial Cell Urine 0-2 /HPF (0-2); WBC Urine 0-5 /HPF (0-5)
[2024-12-28 16:48] LABS: Erythrocyte Sedimentation Rate 33 MM/HR (0-20)
[2024-12-28 16:58] LABS: TSH reflex Free T4 2.18 uIU/mL (0.32-4.0)
[2024-12-28 17:22] LABS: Creatinine Urine 22.66 mg/dL; Total Protein Urine Random < 7 mg/dL (<12)
[2024-12-28 17:28] LABS: Alanine Aminotransferase 10 U/L (0-31); Albumin Level 4.5 g/dL (3.5-5.0); Alkaline Phosphatase 107 U/L (39-117); Anion Gap 16 (12-20); Aspartate Amino Transferase 15 U/L (5-31); Bilirubin Total 0.5 mg/dL (0.0-1.0); Blood Urea Nitrogen 16 mg/dL (9-16); Calcium 9.2 mg/dL (8.4-10.2); Carbon Dioxide 30 mmol/L (22-29); Chloride 99 mmol/L (96-108); Cholesterol 199 mg/dL (<200); Estimated Glomerular Filt Rate > 60; Glucose Random 83 mg/dL (60-115); HDL Cholesterol 51 mg/dL (>40); LDL Cholesterol Calculated 121 mg/dL (<100); Potassium 2.8 mmol/L (3.3-5.1); Sodium 142 mmol/L (135-145); Total Protein 7.8 g/dL (6.5-8.0); Triglycerides 138 mg/dL (<150)
[2024-12-31 01:39] LABS: TS Negative Control Passed; TS Panel A 0; TS Panel B 0; TS Positive Control Passed; TSpotTB Negative (Negative)
[2024-12-31 08:02] LABS: HBS Num1 2.31 mIU/mL (0-7.99); HBc Num1 0.05 S/CO (0.00-0.79); HBsAGNum1 0.29 S/CO (0.00-0.99); Hepatitis A Antibody IgM 0.12 Index (0-0.79); Hepatitis B Core Antibody Nonreactive (Nonreactive); Hepatitis B Surface Antigen Negative (Negative); ~Hepatitis A Antibody IgM Nonreactive (Nonreactive); ~Hepatitis B Surface Antibody NONREACTIVE (Nonreactive); ~Hepatitis C Antibody Nonreactive (Nonreactive)
[2025-01-01 12:04] LABS: IgA 536 mg/dL (47-310); IgG 969 mg/dL (600-1640); IgM 36 mg/dL (50-300)
[2025-01-01 14:54] LABS: Myeloperoxidase Antibody <1.0 AI; Proteinase 3 PR3 Antibodies <1.0 AI
== END 2024-12-28 12:44 | disposition home or self-care (01) ==
LOC: HO.LAB 12:43
PROVIDERS: PCP Internal Medicine; Visit Provider Student in an Organized Health Care Education/Training Program
DX: M31.0 Hypersensitivity angiitis (principal); I10 Essential (primary) hypertension; F31.32 Bipolar disorder, current episode depressed, moderate
CPT/HCPCS: 36415; 80053; 80061; 81001; 82570; 82595; 82784; 84156; 84443; 85025; 85652; 86021; 86140; 86481; 86704; 86706; 86709; 86803; 87340; 99212

== ENCOUNTER 2024-12-28 18:36 | Emergency (ER) | payer OTHER, SELFPAY ==
[2024-12-28 18:38] VITALS: BP 103/58; PULSE 77; RESP 18; TEMP 36.4; O2SAT 97; BMI 41.2
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
--- NOTE | 2024-12-28 18:43 | ECG_ITS ---
Test Reason : LOW POTASSIUM Blood Pressure : */* mmHG Vent. Rate : 76 BPM Atrial Rate : 76 BPM P-R Int : 154 ms QRS Dur : 92 ms QT Int : 426 ms P-R-T Axes : 47 11 46 degrees QTcB Int : 479 ms Normal sinus rhythm Normal ECG When compared with ECG of 07-Jan-2022 22:41, No significant change was found Referred By: Luis Allen Electronically Signed By: Dieter Dias
[2024-12-28 21:00] VITALS: BP 124/62; PULSE 85; RESP 15; O2SAT 99
[2024-12-28 22:19] VITALS: BP 104/48; PULSE 76; RESP 13; O2SAT 98
[2024-12-28] MEDS: Potassium Chloride/H20 10 MEQ/100 ML PIGGYBACK 100 MEQ IV (23:43)
[2024-12-28] MEDS: Potassium Chloride Packet 20 MEQ PACKET 40 MEQ PO (23:43)
[2024-12-28] MEDS: 0.9 % Sodium Chloride 1,000 ML 999 ML IV (23:44)
[2024-12-28 23:45] LABS: Basophils Absolute Auto 0.1 X10*3/uL (0.0-0.2); Basophils Percent Auto 0.9 % (0-2); Eosinophils Absolute Auto 0.4 X10*3/uL (0.0-0.4); Eosinophils Percent Auto 2.4 % (0-4); Hematocrit 38.9 % (37.0-47.0); Hemoglobin 12.9 g/dl (12.0-16.0); Imm Gran Abs Auto 0.07 X10*3/uL (0.00-0.03); Imm Gran Pct Auto 0.5 % (0.0-0.4); Lymphocytes Percent Auto 20.4 % (20-40); MANUAL DIFF FLAG NO; Mean Corpuscular HGB Conc 33.2 g/dl (31.0-35.0); Mean Corpuscular Hemoglobin 27.4 pg (27.0-33.0); Mean Corpuscular Volume 82.6 fL (80.0-98.0); Mean Platelet Volume 9.9 fL (9.4-12.3); Monocytes Absolute Auto 1.1 X10*3/uL (0.1-1.2); Monocytes Percent Auto 7.6 % (2-11); Neutrophils Percent Auto 68.2 % (45-73); Platelet Count 348 X10*3/uL (160-400); Red Blood Count 4.71 X10*6/uL (4.20-5.50); White Blood Count 14.6 X10*3/uL (4.8-10.8)
[2024-12-29 00:14] LABS: Anion Gap 16 (12-20); Blood Urea Nitrogen 17 mg/dL (9-16); Calcium 9.2 mg/dL (8.4-10.2); Carbon Dioxide 26 mmol/L (22-29); Chloride 104 mmol/L (96-108); Creatinine Clr Calc Pharmacy 79.4; Estimated Glomerular Filt Rate > 60; Glucose Random 97 mg/dL (60-115); HCG Quantitative < 2 mIU/mL; Magnesium 2.1 mg/dL (1.6-2.6); Sodium 142 mmol/L (135-145)
[2024-12-29 00:38] VITALS: BP 108/55; PULSE 82; RESP 18; O2SAT 100
[2024-12-29 01:28] VITALS: BP 108/55; PULSE 82; RESP 18; TEMP 36.4; O2SAT 100
[2024-12-29 01:29] VITALS: BP 105/48; PULSE 81; RESP 16; TEMP 36.7; O2SAT 96
== END 2024-12-29 01:46 | disposition home or self-care (01) ==
PROVIDERS: Emergency Provider Emergency Medicine Emergency Medical Services
DX: E87.6 Hypokalemia (principal); R10.2 Pelvic and perineal pain; R79.89 Other specified abnormal findings of blood chemistry; Z79.899 Other long term (current) drug therapy
CPT/HCPCS: 36415; 80048; 83735; 84702; 85025; 93005; 96365; 99284; 99285; J3480

== ENCOUNTER → 2024-12-28 18:43 | Outpatient (BNV) | payer MEDICAID, SELFPAY | PROVIDERS: Emergency Provider Emergency Medicine Emergency Medical Services; Visit Provider Internal Medicine Cardiovascular Disease | DX: E87.6 Hypokalemia (principal) | CPT/HCPCS: 93010 ==

== ENCOUNTER 2025-01-11 07:57 | Outpatient (AMB) | payer MEDICAID, SELFPAY ==
--- OUTSIDE RECORDS SUMMARY | 2025-01-11 08:00 | XMS_ITS | Encounter Summary ---
Demographics Address [address] [place] [address] [address] [place] [address] Work Phone Home Phone Mobile Phone Email Address Preferred Language en Marital Status Single Advent Affiliation Unknown Race White Ethnic Group Unknown Author Organization [employer] Address [address] [place] [address] [address] [place] [address] Care Team Providers Care Medical Certification Specialist Name Role Phone Aaron Pisano MD Primary Care Provide r Reason for Visit * Reason Comments Med Refill Encounter Details Date Type Department Care Team ([facility] st Contact Info) Description 01/30/2024 Refill [facility] MED[facility]INE [address] [place], [place] [phone] Aaron Pisano MD [address] [place] [address] Chronic midline low back pain without sciatica [...] Info) Description 01/14/2025 11:00 AM EDT Telemedicine [facility] [address] [place] [address] Altagracia Mancilla, RN [address] [place] [address] 01/31/2025 10:00 AM EDT Office Visit [facility] ADULT DENTAL [address] [place] [address] Zhanna Hernandez documented as of this encounter [...] as of this encounter Care Teams Medical Certification Specialist Relationship Specialty Start Date End Date Aaron Pisano MD [address] [place] [address] PCP - General Internal Medicine 05/10/14 Antonietta Lim Medical Technical WriterBusiness Systems Analyst 09/18/24 documented as of this encounter
[2025-01-11 08:10] VITALS: BP 108/60; PULSE 81; O2SAT 98; BMI 42.7
--- NOTE | 2025-01-11 08:10 | MHC.OFFVIS ---
Vital Signs 01/11/25 08:10 Height 4 ft 11 in Weight 211 lb 10.3 oz BMI 42.7 BP 108/60 Blood Pressure Location Lt brachial Position Sitting Pulse 81 Pulse Source Pulse Oximeter Pulse Oximetry (%) 98 Oxygen Delivery Method Room Air Intake Visit Reasons: vasculitis rash/ 2 week f/u MD req Intake Note: Patient last seen by Doctor Khushi Alfaro on 12/28/24. Presents today for Vasculitis rash follow up and test results. Allergies tramadol Allergy (Intermediate, Verified 01/11/25 08:20) swelling buspirone [From BuSpar] Allergy (Mild, Verified 01/11/25 08:20) rash lamotrigine [From Lamictal] Allergy (Mild, Verified 01/11/25 08:20) Unknown naproxen Allergy (Unknown, Verified 01/11/25 08:20) anaphylaxis NSAIDS (Non-Steroidal Anti-Inflamma [NSAIDS (NON-STEROIDAL ANTI-INFLAMMA] Allergy (Unknown, Verified 01/11/25 08:20) ANAPHYLAXIS Penicillins [PENICILLINS] Allergy (Unknown, Verified 01/11/25 08:20) ANAPHYLAXIS methotrexate Allergy (Verified 01/11/25 08:20) Rash HPI Comments Details: Patient is a 49-year-old female with asthma, allergies, GERD, hypertension, overactive bladder, osteoarthritis of the knees and biopsy-proven leukocytoclastic vasculitis here today for follow up Interval History: Patient last seen 12/28/24 with me. At that time she was following up for her leukocytoclastic vasculitis. She had return of her rash about 1 month prior to that visit and took prednisolone that she had at home about 40 mg and the rash resolved. She subsequently saw an assistant case manager for eye redness and pain and was diagnosed with episcleritis and using topical steroid eyedrops. At that visit she did not have any rash or concerning complaints. Blood work was done and she is here today for follow up No change since the last visit. No new rashes. No longer on eyedrops and is stable Her last blood work showed hypokalemia and she was sent to the hospital however repeat blood work showed normokalemia Rheumatologic History: Initial history by Dr. Rodas after reestablishing care: 48-year-old female with history of leukocytoclastic vasculitis presents for follow-up. She was last seen by Dr. Smith more than 3 years ago. In 2019 patient had leukocytoclastic vasculitis. She states that skin biopsy confirmed the diagnosis. It has involved both her legs her arms. It was treated with prednisone. Patient worked up for systemic vasculitis multiple times and no evidence of systemic vasculitis was found. Patient states that since 2019 she had another attack of vasculitis involving her skin about a year and a half ago, treated with prednisone. Has not had any other recurrences. She states that she was evaluated by proration clerk Dr. Cano in 2 or 3 years ago and methotrexate was suggested. She was told that she has rheumatoid arthritis and osteoarthritis. Currently patient states that she gets intermittent left ankle pain and tingling and numbness when she stands in the shower. Gets intermittent knee pain. No significant swelling. She denies any history of DVT/PE Initial history by Dr. Smith 05/21/2020: Patient diagnosed with leukocytoclastic vasculitis in April 2020 after presenting with a diffuse painful rash on her bilateral elbows and bilateral lower extremities. Her symptoms began in February 2020 and have since significantly improved. She was treated with a prednisone taper, Bactrim, as well as a topical cream. She has been following with dermatology regularly for this. Her rash has significantly improved, she only has a few lesions left on her left ankle / foot. The pain associated with the rash is also significantly improved. She denies any associated fevers, rash on her face, dyspnea, hemoptysis, nose bleeds, oral or nasal ulcers, joint swelling or joint pain, no foamy /frothy urine. Patient has a history of knee osteoarthritis. She was started on methotrexate in October 2017 for her knee pain but was then switched to Arava after 1 month due to weight gain. She had no relief of her knee pain with either of these medications. Arava was stopped in July 2018 as the were no signs of an inflammatory arthritis present. Current Rheumatology Medication(s): [facility] Medical History GERD (gastroesophageal reflux disease) Asthma exacerbation Sinusitis Somnolence, daytime Snoring Morbid obesity Cough Asthma Allergic rhinitis Obesity (BMI 30-39.9) PCOS (polycystic ovarian syndrome) Vitamin D deficiency Surgical History History of bladder surgery Hx of dilation and curettage Hx of section Hx laparoscopic cholecystectomy Hx of tooth extraction Hx of hysterectomy Family History Father Heart disease Mother Diabetes mellitus Raynaud disease Paternal Grandfather Diabetes mellitus Paternal Uncle Diabetes mellitus Social History Household Members: Children Housing: House Do you presently have visiting nurse or other home services: No (appointment for GENERAL ENGINEER, in progress) Alcohol intake: current Alcohol intake frequency: does not drink Alcohol type: wine Patient Tobacco Use Status: Former Tobacco user Tobacco use type: Cigarette Cigarettes Per Day: 3 Second Hand Smoke Exposure: No Substance Use Type: Marijuana Advance Directives Date on File: 01/12/22 service: No Current occupational status: unemployed Review of Systems Const Details: Review of Systems Constitutional: Denies fever, chills, weight loss ENT: Denies vision changes, eye pain or eye redness, dental caries, dry mouth GI: Denies nausea, vomiting, diarrhea, abdominal pain, change in BM Pulm: Denies SOB, CONLEY, hemoptysis, wheezing Cards: Denies chest pain, palpitations Skin: Denies Raynaud's, nail changes, photosensitivity, [employer]LE FINANCIAL APPLICATION DEVELOPER: Denies headaches, weakness, paresthesias, recurrent falls MSK: as per HPI All other systems reviewed and are unremarkable except noted above Physical Exam Vital Signs: Last Vital Signs Pulse 81 01/11/25 08:10 BP 108/60 01/11/25 08:10 Pulse Ox 98 01/11/25 08:10 Oxygen Delivery Method Room Air 01/11/25 08:10 BMI result Body Mass Index 42.7 Vital signs reviewed Physical Examination CONSTITUITIONAL Patient alert and cooperative. Well appearing and in no apparent painful distress HEENT Conjunctiva and sclera clear. ?Pupils equal round and reactive to light. ?No lymphadenopathy. ? CHEST/RESPIRATORY SYSTEM Normal respiratory effort and able to speak in complete sentences. ?Clear to auscultation bilaterally. ?No crackles, rales, rhonchi, wheezes heard. CARDIAC SYSTEM Regular rate and rhythm. ?S1 and S2 heard no murmurs. ?Radial pulses intact bilaterally MSK Hands: ?Able to make a fist. No synovitis noted to the MCPs, PIPs or DIPs. ?No tenderness to palpation of these joints. No deformities noted. ? Wrists: ?Full range of motion at the wrists without pain. ?No tenderness to palpation or synovitis noted to the wrists. Elbows: Full range of motion without pain. No tenderness, weakness, swelling, increased warmth or erythema. Shoulders: Full range of active range of motion without pain. No tenderness, weakness, swelling, increased warmth or erythema. Knees: ?Full range of motion. ?No tenderness, swelling, increased warmth or erythema.? Bilateral crepitations felt Ankles: Full range of motion. ?No tenderness, swelling, increased warmth or erythema.? Feet: ?Negative squeeze test. ?No tenderness to palpation or swelling of the MTPs. Tender points:?No tenderness to palpation of the bilateral trapezius, supraspinatus, greater trochanters, anterior costochondral junctions, bilateral gluteal areas, bilateral suboccipital muscle insertions SKIN Skin intact without rashes. Hyperpigmentation changes to her left lower leg likely the site of previous inflammatory vasculitic lesions. Results Reviewed Results Reviewed: Laboratory Tests 12/28/24 12/28/24 14:24 23:27 WBC 14.6 H RBC 4.71 Hgb 12.9 Hct 38.9 Plt Count 348 ESR 33 H Sodium 142 Potassium 2.8 L* D 4.0 D Chloride 104 Carbon Dioxide 26 BUN 17 H Creatinine 0.87 Calcium 9.2 Magnesium 2.1 AST 15 ALT 10 C-Reactive Protein 2.30 H Urine tests 12/28/24 14:13 Urine Color Yellow Urine Appearance Clear Urine Protein Negative Urine Blood Negative Urine RBC 0-2 U Random Total Protein < 7 Rheumatology Labs 12/28/24 14:24 IgG Total 969 IgA Total 536 H IgM 36 L Proteinase 3 (PR3) Ab <1.0 Myeloperoxidase Ab <1.0 02/26/20 05/21/20 13:03 10:20 Cryoglobulin Negative Rheumatoid Factor < 15.0 LUCRETIA Screen Positive H LUCRETIA Titer 1:320 H Proteinase 3 (PR3) Ab <1.0 Myeloperoxidase Ab <1.0 SS-A/Ro Antibody <1.0 NEG SS-B/La Antibody <1.0 NEG Sm (Macdonald) Antibody <1.0 NEG SM/EDITORIAL MANAGER IgG Antibody <1.0 NEG Thyroglobulin Antibody <1 Thyroid Peroxidase Ab <1 Complement C3 174 Complement C4 53 Infectious Labs 12/28/24 14:24 Hepatitis A IgM Ab Nonreactive Hep Bs Antigen Negative Hep Bs Antibody NONREACTIVE Hep B Core Total Ab Nonreactive Hepatitis C Ab (EIA) Nonreactive TB Test (T-Spot) Com Negative Assessment & Plan Assessment & Plan (1) Leukocytoclastic vasculitis: Code(s): M31.0 - Hypersensitivity angiitis Category: Medical Plan: #Leukocytoclastic vasculitis Patient is a 49-year-old female with biopsy-proven leukocytoclastic vasculitis here today for follow up. Her last episode of this was in 2019 which responded to prednisone. Since then she has not had any flares up until about a 11/2024 when she had a return of the rash for which she self diagnosed and took prednisone for. In addition to this she is currently being treated for episcleritis by her Therapeutic Massage Technician. She is currently off immunosuppression with topical steroids and oral steroids and stable. Had a long discussion with patient about the criteria for treatment. There is no serological evidence of systemic vasculitis and so I think monitoring for any active disease is fair at this time. If she has a recurrence within the next year I think it would warrant immunosuppressive treatment at this time given that her episodes of flares are few and far between I think we can just monitor her at this time. We will check labs today including urine. Given her diagnosis of episcleritis I think she warrants treatment. We will follow up in 2 weeks and consider immunosuppression at the time. I did let her know that her inflammatory markers specifically her CRP was elevated and she should monitor for any symptoms. She has been having increased phlegm production no hemoptysis but we will check a CT scan of her chest given her history of vasculitis Plan - Continue to monitor off immunosuppression - CT chest - RTC 6 months - Labs before visit: CBC, CMP, ESR, CRP, ANCA Plan I spent 30 minutes reviewing the record and labs, taking a history, examining the patient, discussing the treatment plan, ordering diagnostic work up, and documenting in the medical record Orders: Orders Complete Blood Count Auto Diff 6 Months M31.0 - Hypersensitivity angiitis CT chest wo con - High Res Today M31.0 - Hypersensitivity angiitis Comprehensive Met. Panel 6 Months M31.0 - Hypersensitivity angiitis C Reactive Protein 6 Months M31.0 - Hypersensitivity angiitis Erythrocyte Sedimentation Rate 6 Months M31.0 - Hypersensitivity angiitis ANCA Vasculitides 6 Months M31.0 - Hypersensitivity angiitis Coding Level of Care Code Est Pt Level 4 (77267) Complex EM visit Add On G2211 Diagnoses Leukocytoclastic vasculitis M31.0
== END 2025-01-11 08:58 | disposition home or self-care (01) ==
LOC: HO.RHE 07:58
PROVIDERS: PCP Internal Medicine; Visit Provider Student in an Organized Health Care Education/Training Program
DX: M31.0 Hypersensitivity angiitis (principal)
CPT/HCPCS: 99214

== ENCOUNTER → 2025-01-11 07:57 | Outpatient (BNVA) | payer MEDICAID, SELFPAY | PROVIDERS: PCP Internal Medicine; Visit Provider Student in an Organized Health Care Education/Training Program | DX: M31.0 Hypersensitivity angiitis (principal) | CPT/HCPCS: 99212 ==

== ENCOUNTER 2025-01-28 11:03 | Outpatient (AMB) | payer MEDICAID, SELFPAY ==
--- NOTE | 2025-01-28 11:24 | A.OFFVIS_ITS ---
Vital Signs 01/28/25 11:25 Height 4 ft 11 in Weight 210 lb 8.663 oz BMI 42.5 BP 102/70 Blood Pressure Location Lt brachial Position Sitting Pulse 81 Pulse Source Pulse Oximeter Pulse Oximetry (%) 98 Oxygen Delivery Method Room Air Intake Visit Reasons: Asthma Intake Note: pt is here for follow up and states she has a lot of thick phelgm, that is bothering her all the time, rheumatology is ordering a ct scan of chest, she is using mucinex but not much help, the phelgm gets thicker when she eats. Dimension Stone Quarry Supervisor Required: No Allergies tramadol Allergy (Intermediate, Verified 01/28/25 11:53) swelling buspirone (From BuSpar) Allergy (Mild, Verified 01/28/25 11:53) rash lamotrigine (From Lamictal) Allergy (Mild, Verified 01/28/25 11:53) Unknown naproxen Allergy (Unknown, Verified 01/28/25 11:53) anaphylaxis NSAIDS (Non-Steroidal Anti-Inflamma (NSAIDS (NON-STEROIDAL ANTI-INFLAMMA) Allergy (Unknown, Verified 01/28/25 11:53) ANAPHYLAXIS Penicillins (PENICILLINS) Allergy (Unknown, Verified 01/28/25 11:53) ANAPHYLAXIS methotrexate Allergy (Verified 01/28/25 11:53) Rash Medication List - Last Reconciled 01/28/25 by Kerry James MD acetaminophen ER (Tylenol Arthritis Pain) 650 mg PO Q8H PRN albuterol sulfate 2.5 mg (3 mL) inhalation Q6-8H 30 days albuterol sulfate 90 mcg/actuation (Ventolin HFA) 2 puffs PO Q4-6H PRN baclofen 10 mg PO BID cetirizine (Zyrtec) 10 mg PO DAILY cholecalciferol (vitamin D3) 50 mcg PO DAILY 30 days diphenhydramine HCl (Laureen-Dryl) 25 mg PO TID PRN esomeprazole magnesium (Nexium) 40 mg PO BID fluticasone propion-salmeterol 250-50 mcg/dose (Advair Diskus) 1 ea PO BID fluticasone propionate 50 mcg/actuation 1 spray intranasal BID furosemide (Lasix) 40 mg PO DAILY hydroxyzine HCl 10 mg PO QID PRN loperamide (Anti-Diarrheal (loperamide)) mg PO losartan 25 mg PO DAILY metoclopramide HCl (Reglan) 5 mg PO TIDWMEAL metronidazole 1,000 mg (2 x 500 mg) PO BID miconazole nitrate 2% (Monistat 7) 1 appful vaginal BEDTIME mirabegron ER (Myrbetriq) 25 mg PO QAM montelukast 10 mg PO BEDTIME ondansetron 4 mg PO Q8H PRN oxycodone 5 mg PO Q6H PRN sumatriptan succinate mg PO topiramate 100 mg PO BEDTIME valacyclovir (Valtrex) 1,000 mg PO DAILY varenicline tartrate 1 mg PO DAILY zolpidem ER 12.5 mg PO BEDTIME PRN Do you need a note to return to daycare/school/sports/work: No HPI HPI Asthma: Details: THIS 49 YEARS OLD FEMALE IS HERE FOR 4 MONTHS FOLLOW-UP FOR BRONCHIAL ASTHMA AND ALLERGIC RHINITIS. SHE HAS HAD LONGSTANDING HISTORY OF ALLERGIC RHINITIS AND BRONCHIAL ASTHMA. HER ALLERGY PROBLEM IS AROUND THE YEAR. HAS BEEN SOMEWHAT WORSE IN THE LAST FEW MONTHS. SYMPTOMS BEING WORSE AT NIGHT SHE HAS TO USE ALBUTEROL INHALER OR IN THE NEBULIZER ONCE OR TWICE DURING THE NIGHT. THAT MAKES IT DIFFICULT FOR HER TO SLEEP. DURING THE DAYTIME SHE HAS COUGH WITH THICK MUCUS WHICH IS HARD TO EXPECTORATES. ON FURTHER QUESTIONING IT SEEMS THAT HER MUCUS IS MORE FOR A PART OF POSTNASAL DISCHARGE, AND MAY BE RELATED TO CHRONIC SINUSITIS. SHE HAS LEUKOCYTOCLASTIC VASCULITIS, AND IS UNDER CARE OF RHEUMATOLOGY. WHEN SHE MENTIONED ABOUT HER THICK MUCUS, RHEUMATOLOGY SERVICE HAS ORDERED CT SCAN OF THE CHEST. PATIENT HAS TRY TO CUT DOWN ON SMOKING, AT PRESENT SMOKES ABOUT 3 CIGARETTES A DAY. SHE IS MORBIDLY OBESE HAS HAD SLEEP STUDY IN 2021 WHICH WAS NEGATIVE FOR SLEEP APNEA. [facility]LY [facility] Medical History GERD (gastroesophageal reflux disease) Asthma exacerbation Sinusitis Somnolence, daytime Snoring Morbid obesity Cough Asthma Allergic rhinitis Obesity (BMI 30-39.9) PCOS (polycystic ovarian syndrome) Vitamin D deficiency Surgical History History of bladder surgery Hx of dilation and curettage Hx of section Hx laparoscopic cholecystectomy Hx of tooth extraction Hx of hysterectomy Family History Father Heart disease Mother Diabetes mellitus Raynaud disease Paternal Grandfather Diabetes mellitus Paternal Uncle Diabetes mellitus Social History Household Members: Children Housing: House Do you presently have visiting nurse or other home services: No (appointment for PHYSICAL THERAPY TEACHER, in progress) Alcohol intake: current Alcohol intake frequency: does not drink Alcohol type: wine Patient Tobacco Use Status: Former Tobacco user Tobacco use type: Cigarette Cigarettes Per Day: 3 Second Hand Smoke Exposure: No Substance Use Type: Marijuana Advance Directives Date on File: 01/12/22 service: No Current occupational status: unemployed Review of Systems Const All systems reviewed & are unremarkable except as noted in HPI and below Reports headache(s) (Off and on) Eyes Reports no additional complaints ENT Reports headache(s) (Off and on) and Reports nasal congestion (Mild intermittent) Card Denies chest pain, Denies irregular heart rhythm and Denies leg edema Resp Reports as per HPI GI Reports no additional complaints Reports urinary incontinence Musc Reports back pain and Reports myalgias Skin/Breast Reports system reviewed and no additional complaints, except as documented Neuro Reports headache(s) (Off and on) Psych Reports depression and Reports other (Insomnia) Endo Reports other (Being treated for type 2 diabetes mellitus) Physical Exam Vital Signs: Last Vital Signs Pulse 81 01/28/25 11:25 BP 102/70 01/28/25 11:25 Pulse Ox 98 01/28/25 11:25 Oxygen Delivery Method Room Air 01/28/25 11:25 BMI result Body Mass Index 42.5 Const Other: MORBIDLY OBESE, APPEARS VERY UNCOMFORTABLE, DUE TO PAIN IN THE BACK AND ALSO, POINTS TO BOTH MAXILLARY AREAS WHERE IT HURTS. General: no acute distress, alert and awake Orientation/consciousness: patient oriented x3 HEENT Head: Yes normal to inspection General nose exam: No nasal polyps present and No nasal discharge present Mouth: oropharynx normal Throat: Yes posterior oropharynx normal Eyes General: appearance normal, both eyes and all related structures Neck Neck: Yes normal visual inspection, Yes no lymphadenopathy, Yes trachea midline and Yes no JVD Thyroid: Thyroid normal Chest Chest palpation & inspection: normal inspection of the chest, normal palpation of entire chest wall and no tenderness Resp Other: PERCUSSION NOTE IS RESONANT. BREATH SOUNDS DIMINISHED OVER BOTH BASILAR AREAS. ON AUSCULTATION NO WHEEZES OR RHONCHI ARE HEARD TODAY. Cardio Palpation: normal PMI Rate: regular rate Rhythm: regular rhythm Heart sounds: no gallops and no murmurs GI Palpation (GI): Soft to palpation, nontender, No hepatosplenomegaly present, no masses and Other GI palpation findings present (ABDOMEN IS MODERATELY OBESE AND PROTUBERANT) Auscultation: normal bowel sounds Back/Spine/Pelvis Thoracic/Lumbar Spine: thoracic and lumbar spine normal to inspection, thoraco- lumbar ROM limited and thoraco-lumbar spasm Skin General skin exam: no rashes or lesions noted Neuro General: patient oriented x3 and no focal motor deficits Cranial nerves: Yes CN's II-XII intact bilaterally Extrem General: Yes normal to inspection, Yes no clubbing, cyanosis or edema and Yes no calf tenderness Right upper extremity: no edema Psych Appearance: grossly normal and well kempt Speech and movement: Normal speech and movement present Assessment & Plan Assessment & Plan (1) Asthma: Comment: Chronic persistent bronchial asthma . At present seems to be fairly well controlled with continued use of Advair. No significant wheezes are heard on the chest. She claims to be waking up once or twice per night with cough and has to use the albuterol inhaler or albuterol in the nebulizer. Code(s): J45.909 - Unspecified asthma, uncomplicated Category: Medical Plan: Continue to use albuterol HFA 2 puffs Q 6 hours p.r.n. Continue Advair Diskus 250-50 1 inhalation b.i.d. (2) Cough: Comment: Cough is nonspecific, intermittent, contributed by allergic rhinitis as well as bronchial asthma. Complains of excessive thick mucus which she can not bring up. The mucus is white. 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 I will also order CT scan of the sinuses Code(s): R05 - Cough Category: Medical Plan: Treatment as under allergic rhinitis (3) Allergic rhinitis: Comment: Chronic persistent, problem, around the year, but seems to be controlled. Code(s): J30.9 - Allergic rhinitis, unspecified Category: Medical Plan: Flonase -50 2 sprays each nostril daily Montelukast 10 mg daily. Zyrtec 10 mg once a day p.r.n. . Drink plenty of fluids. (4) Sinusitis: Comment: THE PATIENT DOES HAVE CHRONIC ALLERGIC RHINITIS. CURRENTLY COMPLAINING OF PAIN OVER THE MAXILLARY AREAS. SHE IS SENSITIVE TO TOUCH, MAY HAVE MAXILLARY SINUSITIS. Code(s): J32.9 - Chronic sinusitis, unspecified Category: Medical Plan: Treatment as under allergic rhinitis. CT scan of the sinuses is ordered and if indicated she would need course of antibiotics for a few weeks. Orders: Orders CT sinus wo IV con Today J30.9 - Allergic rhinitis, unspecified, J32.9 - Chronic sinusitis, unspecified, R05 - Cough Coding Level of Care Code Est Pt Level 3 (87472) Diagnoses Asthma J45.909 Cough R05 Allergic rhinitis J30.9 Sinusitis J32.9
[2025-01-28 11:25] VITALS: BP 102/70; PULSE 81; O2SAT 98; BMI 42.5
== END 2025-01-28 11:51 | disposition home or self-care (01) ==
LOC: HO.HPS 11:04
PROVIDERS: PCP Internal Medicine; Visit Provider Internal Medicine
DX: J45.909 Unspecified asthma, uncomplicated (principal); R05.9 Cough, unspecified; J30.9 Allergic rhinitis, unspecified; J32.9 Chronic sinusitis, unspecified
CPT/HCPCS: 99213

== ENCOUNTER → 2025-01-28 11:03 | Outpatient (BNVA) | payer MEDICAID, SELFPAY | PROVIDERS: PCP Internal Medicine; Visit Provider Internal Medicine | DX: J45.909 Unspecified asthma, uncomplicated (principal); R05.9 Cough, unspecified; J32.9 Chronic sinusitis, unspecified | CPT/HCPCS: 99212 ==

== ENCOUNTER 2025-02-02 09:31 | Outpatient (REF) | payer MEDICAID, SELFPAY ==
--- NOTE | ~2025-02-02 | CT_ITS ---
CLINICAL HISTORY: M31.0 - Hypersensitivity angiitis CT chest without contrast Comparison: CR/SR - XR CHEST 2V - 04/23/24 16:16 EDT Findings: The heart is normal size. Mitral annular calcification. The visualized thyroid and mediastinum are unremarkable. The lungs are clear. No consolidation or any evidence of inflammation in the lungs. No pleural effusion or pneumothorax. Cholecystectomy. No acute findings in the visualized upper abdomen. No acute fractures. IMPRESSION: 1. No acute thoracic findings. This document has been electronically signed by: Celena Lassiter MD on 02/04/2025 19:46:09
== END 2025-02-02 09:32 | disposition home or self-care (01) ==
LOC: HO.CT 09:31
PROVIDERS: PCP Internal Medicine; Visit Provider Student in an Organized Health Care Education/Training Program
DX: M31.0 Hypersensitivity angiitis (principal)
CPT/HCPCS: 71250

== ENCOUNTER → 2025-02-02 09:45 | Outpatient (BNV) | payer MEDICAID, SELFPAY | PROVIDERS: PCP Internal Medicine; Visit Provider Radiology Diagnostic Radiology | DX: M31.0 Hypersensitivity angiitis (principal) | CPT/HCPCS: 71250 ==

== ENCOUNTER 2025-02-15 09:35 | Day surgery (SDC) | payer MEDICAID, SELFPAY ==
--- OUTSIDE RECORDS SUMMARY | 2025-01-02 12:37 | XMS_ITS | Encounter Summary ---
Demographics Address [address] [place] [address] [address] [place] [address] Work Phone Home Phone Mobile Phone Email Address Preferred Language en Marital Status Single Oriental Orthodox Affiliation Unknown Race White Ethnic Group Unknown Author Organization [employer] Address [address] [place] [address] [address] [place] [address] Care Team Providers Care Factory Superintendent Name Role Phone Aaron Pisano MD Primary Care Provide r Reason for Visit * Reason Comments Med Refill Encounter Details Date Type Department Care Team ([facility] st Contact Info) Description 01/30/2024 Refill [facility] [address] [place], [place] [phone] Aaron Pisano MD [address] [place] [address] Chronic midline low back pain without sciatica [...] Info) Description 01/14/2025 11:00 AM EDT Telemedicine [facility] [address] [place] [address] Altagracia Mancilla, RN [address] [place] [address] 01/31/2025 10:00 AM EDT Office Visit [facility] ADULT DENTAL [address] [place] [address] Zhanna Hernandez documented as of this encounter [...] documented as of this encounter Care Teams Factory Superintendent Relationship Specialty Start Date End Date Aaron Pisano MD [address] [place] [address] PCP - General Internal Medicine 05/10/14 Antonietta Lim Language AssistantBoom Supervisor 09/18/24 documented as of this encounter
[2025-02-13 13:40] VITALS: BMI 39.6
--- NOTE | 2025-02-14 09:41 | HO.ANESPROP2 ---
Documented by User: Jayne Green NP 02/14/25 09:44 HPI - Anesthesia Eval Consult details Narrative: 49yo F for Upper Endoscopy and Colonoscopy Pt to [facility] ED 12/2024 with critical low K @ 2.8. Repleated with PO and IV. PMFSH Active Problems Active Problems: All Active Problems GERD (gastroesophageal reflux disease) (Acute) Asthma exacerbation (Acute) Vomiting (Acute) Leg swelling (Acute) Anemia (Acute) Varicose veins of left lower extremity with inflammation (Acute) Sinusitis (Acute) Somnolence, daytime (Acute) Snoring (Acute) Urinary frequency (Acute) Urinary urgency (Acute) Stress incontinence due to pelvic organ prolapse (Acute) Morbid obesity (Acute) Back pain (Acute) Cough (Acute) Chest pain (Acute) Asthma (Acute) Allergic rhinitis (Acute) Obesity (BMI 30-39.9) (Acute) PCOS (polycystic ovarian syndrome) (Acute) Vitamin D deficiency (Acute) Leukocytoclastic vasculitis (Acute) LUCRETIA positive (Acute) Primary osteoarthritis of left knee (Acute) Past Medical History Medical History GERD (gastroesophageal reflux disease) Asthma exacerbation Sinusitis Somnolence, daytime Snoring Morbid obesity Cough Asthma Allergic rhinitis Obesity (BMI 30-39.9) PCOS (polycystic ovarian syndrome) Vitamin D deficiency Family History Family History Father Heart disease Mother Diabetes mellitus Raynaud disease Paternal Grandfather Diabetes mellitus Paternal Uncle Diabetes mellitus Surgical History Surgical History History of bladder surgery Hx of dilation and curettage Hx of section Hx laparoscopic cholecystectomy Hx of tooth extraction Hx of hysterectomy Social History Social History Household Members: Children Housing: House Do you presently have visiting nurse or other home services: No (appointment for [employer], in progress) Alcohol intake: current Alcohol intake frequency: holidays/special occasions only Alcohol type: wine Patient Tobacco Use Status: Former Tobacco user Tobacco use type: Cigarette Cigarettes Per Day: 3 Second Hand Smoke Exposure: No Use of substances other than those prescribed or required for medical reasons: Yes Substance Use Type: Marijuana Substance Use Type Other:: gummies Are you DNR?: No Advance Directives: No Advance Directives Information Provided: Yes Advance Directives Date on File: 01/12/22 Patient : No : No Poor oral hygiene: No service: No Current occupational status: unemployed Meds Allergies Allergy/AdvReac Type Severity Reaction Status Date / Time tramadol Allergy Intermediate swelling Verified 01/28/25 11:53 buspirone (From BuSpar) Allergy Mild rash Verified 01/28/25 11:53 lamotrigine (From Lamictal) Allergy Mild Unknown Verified 01/28/25 11:53 naproxen Allergy Unknown anaphylaxis Verified 01/28/25 11:53 NSAIDS (Non-Steroidal Allergy Unknown ANAPHYLAXIS Verified 01/28/25 11:53 Anti-Inflamma (NSAIDS (NON-STEROIDAL ANTI-INFLAMMA) Penicillins (PENICILLINS) Allergy Unknown ANAPHYLAXIS Verified 01/28/25 11:53 methotrexate Allergy Rash Verified 01/28/25 11:53 Home Medications ?Medication ?Instructions ?Recorded ?Confirmed ?Last Taken ?Type valacyclovir 1 gram tablet 1,000 mg PO DAILY 05/21/20 01/28/25 Unknown History (Valtrex) losartan 25 mg tablet 25 mg PO DAILY 01/08/22 01/28/25 Unknown History oxycodone 5 mg tablet 5 mg PO Q6H PRN Pain 01/08/22 01/28/25 Unknown History furosemide 40 mg tablet (Lasix) 40 mg PO DAILY 02/17/22 01/28/25 Unknown History zolpidem 12.5 mg tablet,extended 12.5 mg PO BEDTIME PRN 03/08/23 01/28/25 Unknown History release,multiphase hydroxyzine HCl 10 mg tablet 10 mg PO QID PRN anxiety 06/08/23 01/28/25 Unknown History diphenhydramine HCl 25 mg tablet 25 mg PO TID PRN nausea/vomiting 07/07/23 01/28/25 Unknown History (Laureen-Dryl) mirabegron 25 mg tablet,extended 25 mg PO QAM 07/07/23 01/28/25 Unknown History release 24 hr (Myrbetriq) varenicline tartrate 1 mg tablet 1 mg PO DAILY 07/07/23 01/28/25 Unknown History loperamide 2 mg tablet mg PO 06/15/24 01/28/25 Unknown History (Anti-Diarrheal (loperamide)) topiramate 100 mg tablet 100 mg PO BEDTIME 06/15/24 01/28/25 Unknown History fluticasone propionate 50 1 spray intranasal BID 08/27/24 01/28/25 Unknown History mcg/actuation nasal spray,suspension sumatriptan succinate 50 mg tablet mg PO 08/27/24 01/28/25 Unknown History Exam Height,Weight and Vital Signs: Height 4 ft 11 in Weight 88.904 kg Narrative Narrative: EKG 12/2024 Vent. Rate : 76 BPM Atrial Rate : 76 BPM P-R Int : 154 ms QRS Dur : 92 ms QT Int : 426 ms P-R-T Axes : 47 11 46 degrees QTcB Int : 479 ms Normal sinus rhythm Normal ECG When compared with ECG of 07-Jan-2022 22:41, No significant change was found Assessment and Plan Assessment Anesthesia Assessment: Chart Reviewed Documented by User: Garcia Melendez MD 02/15/25 11:29 [facility] Past Medical History Medical History GERD (gastroesophageal reflux disease) Asthma exacerbation Sinusitis Somnolence, daytime Snoring Morbid obesity Cough Asthma Allergic rhinitis Obesity (BMI 30-39.9) PCOS (polycystic ovarian syndrome) Vitamin D deficiency Functional capacity: independent ambulation Family History Family History Father Heart disease Mother Diabetes mellitus Raynaud disease Paternal Grandfather Diabetes mellitus Paternal Uncle Diabetes mellitus Family history of problems with anesthesia: No Surgical History Surgical History History of bladder surgery Hx of dilation and curettage Hx of section Hx laparoscopic cholecystectomy Hx of tooth extraction Hx of hysterectomy History of Problems with Anesthesia: No Social History Social History Household Members: Children Housing: House Do you presently have visiting nurse or other home services: No (appointment for [employer], in progress) Alcohol intake: current Alcohol intake frequency: holidays/special occasions only Alcohol type: wine Patient Tobacco Use Status: Former Tobacco user Tobacco use type: Cigarette Cigarettes Per Day: 3 Second Hand Smoke Exposure: No Use of substances other than those prescribed or required for medical reasons: Yes Substance Use Type: Marijuana Substance Use Type Other:: gummies Are you DNR?: No Advance Directives: No Advance Directives Information Provided: Yes Advance Directives Date on File: 01/12/22 Patient : No : No Poor oral hygiene: No service: No Current occupational status: unemployed Meds Allergies Allergy/AdvReac Type Severity Reaction Status Date / Time tramadol Allergy Intermediate swelling Verified 01/28/25 11:53 buspirone (From BuSpar) Allergy Mild rash Verified 01/28/25 11:53 lamotrigine (From Lamictal) Allergy Mild Unknown Verified 01/28/25 11:53 naproxen Allergy Unknown anaphylaxis Verified 01/28/25 11:53 NSAIDS (Non-Steroidal Allergy Unknown ANAPHYLAXIS Verified 01/28/25 11:53 Anti-Inflamma (NSAIDS (NON-STEROIDAL ANTI-INFLAMMA) Penicillins (PENICILLINS) Allergy Unknown ANAPHYLAXIS Verified 01/28/25 11:53 methotrexate Allergy Rash Verified 01/28/25 11:53 Home Medications ?Medication ?Instructions ?Recorded ?Confirmed ?Last Taken ?Type valacyclovir 1 gram tablet 1,000 mg PO DAILY 05/21/20 01/28/25 Unknown History (Valtrex) losartan 25 mg tablet 25 mg PO DAILY 01/08/22 01/28/25 Unknown History oxycodone 5 mg tablet 5 mg PO Q6H PRN Pain 01/08/22 01/28/25 Unknown History furosemide 40 mg tablet (Lasix) 40 mg PO DAILY 02/17/22 01/28/25 Unknown History zolpidem 12.5 mg tablet,extended 12.5 mg PO BEDTIME PRN 03/08/23 01/28/25 Unknown History release,multiphase hydroxyzine HCl 10 mg tablet 10 mg PO QID PRN anxiety 06/08/23 01/28/25 Unknown History diphenhydramine HCl 25 mg tablet 25 mg PO TID PRN nausea/vomiting 07/07/23 01/28/25 Unknown History (Laureen-Dryl) mirabegron 25 mg tablet,extended 25 mg PO QAM 07/07/23 01/28/25 Unknown History release 24 hr (Myrbetriq) varenicline tartrate 1 mg tablet 1 mg PO DAILY 07/07/23 01/28/25 Unknown History loperamide 2 mg tablet mg PO 06/15/24 01/28/25 Unknown History (Anti-Diarrheal (loperamide)) topiramate 100 mg tablet 100 mg PO BEDTIME 06/15/24 01/28/25 Unknown History fluticasone propionate 50 1 spray intranasal BID 08/27/24 01/28/25 Unknown History mcg/actuation nasal spray,suspension sumatriptan succinate 50 mg tablet mg PO 08/27/24 01/28/25 Unknown History Exam Exam Date and Time: 02/15/2025 Airway Mallampati Class: II TM Dist: >3cm Neck ROM: Full Loose/Missing/Broken Teeth: No Heart: rrr Lungs: cta Other: normal Assessment and Plan Final Anesthetic Review Family History of Problems with Anesthesia: No History of Problems with Anesthesia: No NPO: Yes ASA Class: II Final Preanesthetic Review: No Changes in Pt Med Stat, Meds/Allgs Chart Reviewed, Consent Obtained/Reviewed and Anes Risks/Benef Reviewed Patient Risk: Low Procedure Risk: Low Anesthetic Plan Anesthetic Plan: MAC: Disposition: Standard PACU
[2025-02-15 10:04] VITALS: BMI 43.1
--- NOTE | 2025-02-15 10:17 | PC.NURSE ---
patient states she didnt receive her bowel prep so she bought ex-lax whole box of laxatives and took them all, no solid food, clear liquids all day and her results were yellow output with no solid stool per patient. also she states she did two enemas as well.
--- NOTE | 2025-02-15 10:20 | MHC.SHP ---
Pre-Procedural Eval Section A - 24 Hr Update-Section A only Date of Service: 02/15/25 The patient is an INPATIENT: No The patient has been examined within 24 hours of the surgical procedure. The History & Physical has been completed within 30 days and I have reviewed it.: No Section B - Complete if H&P > 30 days Chief Complaint: Colon cancer screening, GERD Relevant Family History (Specify if Yes): No Relevant Social History: Tobacco Use (Former smoker) Present Medications: see Short Stay Collaborative assessment Medical History: Significant History (GERD (gastroesophageal reflux disease) Asthma exacerbation Sinusitis Somnolence, daytime Snoring Morbid obesity Cough Asthma Allergic rhinitis Obesity (BMI 30-39.9) PCOS (polycystic ovarian syndrome)) History of Previous Operations: Relevant previous surgery/procedure and date(s) (History of bladder surgery Hx of dilation and curettage Hx of section Hx laparoscopic cholecystectomy Hx of tooth extraction Hx of hysterectomy) Allergies: Allergies Allergy/AdvReac Type Severity Reaction Status Date / Time tramadol Allergy Intermediate swelling Verified 01/28/25 11:53 buspirone (From BuSpar) Allergy Mild rash Verified 01/28/25 11:53 lamotrigine (From Lamictal) Allergy Mild Unknown Verified 01/28/25 11:53 naproxen Allergy Unknown anaphylaxis Verified 01/28/25 11:53 NSAIDS (Non-Steroidal Allergy Unknown ANAPHYLAXIS Verified 01/28/25 11:53 Anti-Inflamma (NSAIDS (NON-STEROIDAL ANTI-INFLAMMA) Penicillins (PENICILLINS) Allergy Unknown ANAPHYLAXIS Verified 01/28/25 11:53 methotrexate Allergy Rash Verified 01/28/25 11:53 Review of Systems Sugical H&P ROS: Negative: Constitution, Cardiovascular, Respiratory and Gastrointestinal Exam Surgical H&P Exam: Normal: Heart, Normal: Lungs, Normal: Extremities and Normal: Abdomen Plan Diagnosis/Plan: Change (Proceed with EGD and colon ) I have reviewed the history and physical and performed a pertinent physical examination on my patient. No changes have occurred unless specified. Time Spent With Patient Time: Total time managing care of this patient today ____ minutes.
[2025-02-15 10:28] VITALS: BP 106/42; PULSE 71; RESP 16; TEMP 35.6; O2SAT 98
[2025-02-15 10:33] LABS: Anion Gap 13 (12-20); Carbon Dioxide 24 mmol/L (22-29); Chloride 105 mmol/L (96-108); Potassium 3.0 mmol/L (3.3-5.1); Sodium 139 mmol/L (135-145)
[2025-02-15] MEDS: Lactated Ringers 1,000 ML 100 ML IVCONT (10:38)
--- NOTE | 2025-02-15 11:32 | PC.NURSE ---
md brown and md padilla aware of patients potassium being 3.0 ok to proceed.
--- NOTE | 2025-02-15 11:52 | HO.OPN-COLON ---
Colonoscopy Operative Note Operative Note Date of Service: 02/15/25 Narrative: FLEXIBLE TRANSORAL UPPER GASTROINTESTINAL ENDOSCOPY WITH BIOPSIES AND COLONOSCOPY TILL CECUM WITH BIOPSIES Pre-op diagnosis: Colon cancer screening, GERD, abd pain Post-op diagnosis: GERD, Gastritis, gastric polyps, gastric antral nodules Colon Polyps, Diverticulosis, hemorrhoids Specimens and Sources: : a- duodenal bxs r/o celiac disease ?b- gastric antrum bxs r/o h- pylori ?c- gastric antrum nodule ?d- gastric polyp ?e- right side colon bxs r/o microscopic colitis ?f- left side colon bxs r/o microscopic colitis Pre-operative diagnosis: : Colon cancer screening, GERD Post-operative Diagnosis: : gastritis, gastric polyp, gastric nodule, diverticulosis, hemorrhoids Endoscopist:? Jamie Miles MD Anesthesia:?[facility] [place] Consent: Indications for the procedure and potential complications of bleeding, perforation, reaction to medications and missed diagnosis were discussed with the patient and informed consent was obtained. Instrument: Olympus GIF H 190 mid size upper endoscope Monitoring: Vital signs and clinical assessment, continuous EKG monitoring, Pulse oximetry, Carbon Dioxide monitoring and blood pressure monitoring were done throughout the procedure. Procedure: The patient was placed in the left lateral decubitis position and pre-procedure medications were administered and a bite block was placed. The endoscope was inserted into the mouth and advanced under direct vision to the third part of duodenum. A careful inspection was made as the upper endoscope was withdrawn including a retroflexed examination of the proximal stomach; Findings and interventions are described below. Findings: Larynx: Normal Esophagus: GE junction at 36 cms. No esophagitis or Mooney's. Stomach: Multiple 2-3 mm benign appearing polyps in the gastric fundus - biopsied. Two 10-12 mm benign appearing nodules with central erosions in the antrum - biopsied. Moderate gastric antral erythema - biopsies were obtained from the antrum. Grade 2 flap valve on retroflexed examination of the cardia. Duodenum: Normal bulb and medium sized diverticulum in the medial wall of descending duodenum Biopsies were obtained from descending duodenum to check for celiac sprue Intervention: Biopsies as noted above COLONOSCOPY PROCEDURE NOTE Instrument: Olympus PCF H 190 L variable stiffness pediatric colonoscope Monitoring: Vital signs and clinical assessment, intermittent blood pressure monitoring, continuous EKG monitoring, Pulse oximetry and Carbon Dioxide monitoring were done throughout the procedure. Please see anesthesia flowsheet. Colon withdrawl time was 15 minutes. Procedure: The patient was placed in the left lateral decubitis position and pre-procedure medications were administered. After a digital rectal examination of the ano-rectum, the video colonoscope was inserted into the rectum and advanced through the colon to the cecum. The colonoscope was slowly withdrawn in a retrograde panoramic fashion and the colon mucosa was carefully examined including a retroflexed view of the rectum. Findings and interventions are described below. Procedure Difficulty: without difficulty Findings: Terminal Ileum: Not evaluated Cecum: Partially evaluated due to semi solid stool which could not be suctioned Ascending Colon: Partially evaluated due to semi solid stool which could not be suctioned Transverse Colon: Partially evaluated due to semi solid stool which could not be suctioned Descending Colon: Normal Sigmoid Colon: Moderate diverticulosis Rectum: Normal Ano-rectum: Small internal hemorrhoids Colon preparation: Good in the left colon and fair in the remaining colon despite copious irrigation. Harris Bowel Preparation Scale Right colon; 1 Transverse colon: 1 Left colon; 2 (0 = Unprepared colon segment with mucosa not seen due to solid stool that cannot be cleared. 1 = Portion of mucosa of the colon segment seen, but other areas of the colon segment not well seen due to staining, residual stool and/or opaque liquid. 2 = Minor amount of residual staining, small fragments of stool and/or opaque liquid, but mucosa of colon segment seen well. 3 = Entire mucosa of colon segment seen well with no residual staining, small fragments of stool or opaque liquid) Impression and Post Procedure Diagnosis: Endoscopy Findings: ESOPHAGUS: [] STOMACH: [] DUODENUM: [] Colonoscopy Findings: No polyps were detected Random biopsies were obtained from right and left colon to check for microscopic colitis Moderate diverticulosis seen in the sigmoid colon Small hemorrhoids on retroflexed exam. Plan: Pt has a FU appointment on 04/03/25 with Brooke Rubi NP Repeat Colonoscopy in 1 year due to suboptimal prep. A summary of above findings and relevant handouts were given to the patient.
[2025-02-15 12:20] VITALS: BP 124/48; PULSE 77; RESP 18; TEMP 36.7; O2SAT 100
[2025-02-15 12:35] VITALS: BP 116/49; PULSE 68; RESP 18; O2SAT 99
[2025-02-15 12:42] VITALS: BP 106/83; PULSE 68; RESP 18; TEMP 36.6; O2SAT 99
== END 2025-02-15 13:25 | disposition home or self-care (01) ==
PROVIDERS: Nurse Practitioner; Visit Provider Internal Medicine Gastroenterology
PROC: (CPT 43239; principal; 2025-02-15 11:00)
DX: Z12.11 Encounter for screening for malignant neoplasm of colon (principal); K52.839 Microscopic colitis, unspecified; K57.30 Diverticulosis of large intestine without perforation or abscess without bleeding; K64.8 Other hemorrhoids; K21.9 Gastro-esophageal reflux disease without esophagitis; K29.60 Other gastritis without bleeding; K31.7 Polyp of stomach and duodenum; Z91.199 Patient's noncompliance with other medical treatment and regimen due to unspecified reason; J45.909 Unspecified asthma, uncomplicated; E55.9 Vitamin D deficiency, unspecified; F12.90 Cannabis use, unspecified, uncomplicated; Z79.899 Other long term (current) drug therapy; Z87.891 Personal history of nicotine dependence
CPT/HCPCS: 43239; 45380; 36415; 80051; 88305; 88313; 88342; J2003; J2704; J3010

== ENCOUNTER → 2025-02-15 09:35 | Outpatient (BNV) | payer MEDICAID, SELFPAY | PROVIDERS: Visit Provider Internal Medicine Gastroenterology | DX: Z12.11 Encounter for screening for malignant neoplasm of colon (principal); K57.30 Diverticulosis of large intestine without perforation or abscess without bleeding; Z91.199 Patient's noncompliance with other medical treatment and regimen due to unspecified reason; K21.9 Gastro-esophageal reflux disease without esophagitis; K31.7 Polyp of stomach and duodenum; K29.70 Gastritis, unspecified, without bleeding; K57.10 Diverticulosis of small intestine without perforation or abscess without bleeding | CPT/HCPCS: 43239; 45380 ==

== ENCOUNTER 2025-02-20 14:26 | Outpatient (REF) | payer MEDICAID, SELFPAY ==
--- OUTSIDE RECORDS SUMMARY | 2025-02-20 15:08 | XMS_ITS | Encounter Summary ---
Author Organization [employer] Address [address] [facility] 7 [place] [address] Care Team Providers Care Shield Operator Name Role Phone Aaron Pisano MD Primary Care Provide r Reason for Visit * Reason Comments Med Refill Encounter Details Date Type Department Care Team ([facility] st Contact Info) Description 01/30/2024 Refill [facility] [address] [place] [address] Aaron Pisano MD [address] [place] [address] Chronic midline low back pain without sciatica [...] Care Team (Late st Contact Info) Description 03/13/2025 3:00 PM EDT Office Visit [facility] AD[facility] D[facility] [address] [place] [phone] Miki Sarkar DDS [address] [place] [phone] 04/09/2025 11:15 AM EDT Office Visit [facility] [address] [place] [phone] Aaron Pisano MD [address] [place] [id number] 04/12/2025 11:00 AM EDT Clinical Support [facility] [address] [place] [phone] Altagracia Mancilla, GRACIELA [address] [place] [address] 08/29/2025 1:00 PM EST Office Visit [facility] [address] [place] [phone] Zhanna Heranndez documented as of this encounter Goals Goal Patient Goal Type Associated Problems Recent Progress Patient-Stated? Author Blood Pressure < 140/90 Blood Pressure 128/70( 025 9:12 AM EDT) No Giovanna Banks, PharmD documented as of this encounter Visit Diagnoses Diagnosis Chronic midline low back pain without sciatica documented in this encounter Additional Health Concerns Assessment Noted Time PHQ-9 Depression Total Score: 12 024 1:46 PM EST documented as of this encounter Care Teams Shield Operator Relationship Specialty Start Date End Date Aaron Pisano MD [address] [place] [address] PCP - General Internal Medicine 05/10/14 Antonietta Lim Talent Acquisition SpecialistSalesperson [employer] 09/18/24 documented as of this encounter
== END 2025-02-20 14:27 | disposition home or self-care (01) ==
LOC: HO.MAMMO 14:26
PROVIDERS: PCP Internal Medicine; Visit Provider Internal Medicine
DX: Z12.31 Encounter for screening mammogram for malignant neoplasm of breast (principal)
CPT/HCPCS: 77063; 77067

== ENCOUNTER → 2025-02-20 14:45 | Outpatient (BNV) | payer MEDICAID, SELFPAY | PROVIDERS: PCP Internal Medicine; Visit Provider Radiology Body Imaging | DX: Z12.31 Encounter for screening mammogram for malignant neoplasm of breast (principal) | CPT/HCPCS: 77063; 77067 ==

== ENCOUNTER 2025-04-03 16:07 | Outpatient (AMB) | payer MEDICAID, SELFPAY ==
[2025-04-03 16:18] VITALS: BP 104/50; PULSE 98; O2SAT 97; BMI 42.2
--- NOTE | 2025-04-03 16:18 | A.OFFVIS_ITS ---
Vital Signs 04/03/25 16:18 Height 4 ft 11 in Weight 209 lb BMI 42.2 BP 104/50 L Blood Pressure Location Rt brachial Position Sitting Pulse 98 Pulse Source Pulse Oximeter Pulse Oximetry (%) 97 Oxygen Delivery Method Room Air Intake Visit Reasons: s/p double Jd Intake Note: ESTABLISHED PATIENT for GERD mgmt. S/P Double. CC; C.O. frequent diarrhea + abd discomfort despite current therapies. 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 Salon Customer Experience Specialist Required: No Accompanied by: Self / Same As Patient Allergies tramadol Allergy (Intermediate, Verified 04/03/25 16:18) swelling buspirone (From BuSpar) Allergy (Mild, Verified 04/03/25 16:18) rash lamotrigine (From Lamictal) Allergy (Mild, Verified 04/03/25 16:18) Unknown naproxen Allergy (Unknown, Verified 04/03/25 16:18) anaphylaxis NSAIDS (Non-Steroidal Anti-Inflamma (NSAIDS (NON-STEROIDAL ANTI-INFLAMMA) Allergy (Unknown, Verified 04/03/25 16:18) ANAPHYLAXIS Penicillins (PENICILLINS) Allergy (Unknown, Verified 04/03/25 16:18) ANAPHYLAXIS methotrexate Allergy (Verified 04/03/25 16:18) Rash HPI HPI s/p double Jd: Details: LAST VISIT: GERD (gastroesophageal reflux disease) Nausea & vomiting Abdominal pain Diarrhea Helicobacter pylori (H. pylori) Yeast infection Plan Patient reports occasional nausea will send her script for Zofran. Reports yeast infection,, vaginal itch, will send her script for fluconazole and Monistat, however is symptoms continue patient was encouraged to call OBGYN or PCP. Continue omeprazole. Avoid dietary triggers and late night snacking. Staying upright for minimal 3 hours after meals discussed with patient. Follow-up in the office in 5 weeks, sooner on as needed basis. Patient is agreeable to this plan and verbalizes understanding of instructions. She was given the opportunity to ask questions and all questions answered. ? Thank you for allowing me to participate in her care New fluconazole 150 mg PO ONCE 1 tab 0RF miconazole nitrate 2% (Monistat 7) 1 appful vaginal BEDTIME 45 grams 2RF Refilled ondansetron 4 mg PO Q8H PRN 20 tabs 0RF nausea and vomiting COLONOSCOPY AND UPPER ENDOSCOPY Findings: Larynx: Normal Esophagus: GE junction at 36 cms. No esophagitis or Mooney's. Stomach: Multiple 2-3 mm benign appearing polyps in the gastric fundus - biopsied. Two 10-12 mm benign appearing nodules with central erosions in the antrum - biopsied. Moderate gastric antral erythema - biopsies were obtained from the antrum. Grade 2 flap valve on retroflexed examination of the cardia. Duodenum: Normal bulb and medium sized diverticulum in the medial wall of descending duodenum Biopsies were obtained from descending duodenum to check for celiac sprue Intervention: Biopsies as noted above COLONOSCOPY PROCEDURE NOTE Instrument: Olympus PCF H 190 L variable stiffness pediatric colonoscope Monitoring: Vital signs and clinical assessment, intermittent blood pressure monitoring, continuous EKG monitoring, Pulse oximetry and Carbon Dioxide monitoring were done throughout the procedure. Please see anesthesia flowsheet. Colon withdrawl time was 15 minutes. Procedure: The patient was placed in the left lateral decubitis position and pre-procedure medications were administered. After a digital rectal examination of the ano-rectum, the video colonoscope was inserted into the rectum and advanced through the colon to the cecum. The colonoscope was slowly withdrawn in a retrograde panoramic fashion and the colon mucosa was carefully examined including a retroflexed view of the rectum. Findings and interventions are described below. Procedure Difficulty: without difficulty Findings: Terminal Ileum: Not evaluated Cecum: Partially evaluated due to semi solid stool which could not be suctioned Ascending Colon: Partially evaluated due to semi solid stool which could not be suctioned Transverse Colon: Partially evaluated due to semi solid stool which could not be suctioned Descending Colon: Normal Sigmoid Colon: Moderate diverticulosis Rectum: Normal Ano-rectum: Small internal hemorrhoids Colon preparation: Good in the left colon and fair in the remaining colon despite copious irrigation. [place] Bowel Preparation Scale Right colon; 1 Transverse colon: 1 Left colon; 2 (0 = Unprepared colon segment with mucosa not seen due to solid stool that cannot be cleared. 1 = Portion of mucosa of the colon segment seen, but other areas of the colon segment not well seen due to staining, residual stool and/or opaque liquid. 2 = Minor amount of residual staining, small fragments of stool and/or opaque liquid, but mucosa of colon segment seen well. 3 = Entire mucosa of colon segment seen well with no residual staining, small fragments of stool or opaque liquid) Impression and Post Procedure Diagnosis: Endoscopy Findings: ESOPHAGUS: Normal STOMACH: Moderate gastritis and multiple 2-3 mm benign appearing polyps in the gastric fundus - biopsied. Two 10-12 mm benign appearing nodules with central erosions in the antrum - biopsied. DUODENUM: Medium sized diverticulum in the medial wall of descending duodenum. Biopsies were obtained from 3rd part of the duodenum to check for celiac sprue. Colonoscopy Findings: No polyps were detected Random biopsies were obtained from right and left colon to check for microscopic colitis Moderate diverticulosis seen in the sigmoid colon Small hemorrhoids on retroflexed exam. Plan: Repeat EGD (FU of hyperplastic gastric polyps) and Colonoscopy in 1 year due to suboptimal prep. (Dulcolax 10 mg daily starting 1 week before colonoscopy appointment) A summary of above findings and relevant handouts were given to the patient. BIOPSIES SHOWED: A. Duodenum, biopsy: Duodenal mucosa within normal limits. B. Stomach, antrum, biopsy: Antral-type mucosa with mild chronic inactive inflammation and intestinal metaplasia; negative for dysplasia. C. Stomach, antral nodule: Antral-type mucosa with moderate chronic inactive inflammation and regenerative changes. D. Stomach, polypectomy: Superficial fragments of hyperplastic mucosal polyp with background mild chronic inactive inflammation. E. Colon, right, biopsy: Colonic mucosa within normal limits. F. Colon, left, biopsy: Colonic mucosa within normal limits. Comment: Diagnostic morphologic features of celiac disease are not seen Addendum #1 Immunostain for H. pylori is non-reactive (B and C). Letter sent to the patient with biopsy results Patient was placed on the procedure recall list for repeat EGD and colon in 1 year. TODAY'S VISIT Patient is here today for follow-up and to discuss upper endoscopy and colonoscopy results. Patient denies any ill effects from the prep, anesthesia or procedure itself. Patient had suboptimal prep and will need to repeat colonoscopy in 1 year. Upper endoscopy revealed 1 hyperplastic mucosal polyp in the stomach. Patient reports epigastric pain postprandially and occasional reflux. Reports occasional dyspepsia without dysphagia or odynophagia. Patient reports postprandial diarrhea with abdominal bloating and abdominal cramping. Patient denies melena, hematochezia, unintentional weight loss or ribbon like stools. Patient reports that she has not changed her diet. She continues to occasionally eat fast food. Patient reports that she has to use Imodium to control her diarrhea. Patient does not believe she is constipated. [facility] Medical History GERD (gastroesophageal reflux disease) Asthma exacerbation Sinusitis Somnolence, daytime Snoring Morbid obesity Cough Asthma Allergic rhinitis Obesity (BMI 30-39.9) PCOS (polycystic ovarian syndrome) Vitamin D deficiency Surgical History History of bladder surgery Hx of dilation and curettage Hx of section Hx laparoscopic cholecystectomy Hx of tooth extraction Hx of hysterectomy Family History Father Heart disease Mother Diabetes mellitus Raynaud disease Paternal Grandfather Diabetes mellitus Paternal Uncle Diabetes mellitus Social History Household Members: Children Housing: House Do you presently have visiting nurse or other home services: No (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, 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) Alcohol intake: current Alcohol intake frequency: holidays/special occasions only Alcohol type: wine Patient Tobacco Use Status: Former Tobacco user Tobacco use type: Cigarette Cigarettes Per Day: 3 Second Hand Smoke Exposure: No Substance Use Type: Marijuana Advance Directives Date on File: 01/12/22 service: No Current occupational status: unemployed Review of Systems Const Denies weight gain, Denies weight loss and Reports other (Episode of dizziness few days ago) ENT Reports no additional complaints, Denies dysphagia and Denies odynophagia Card Reports no additional complaints Resp Reports no additional complaints GI Reports abdominal pain, Denies belching, Denies melena, Reports bloating, Denies change in bowel habits, Denies dysphagia, Denies excessive flatus, Denies dyspepsia, Reports heartburn (Occasional), Denies diarrhea, Reports loose stools, Denies nausea, Denies odynophagia and Denies vomiting Reports no additional complaints Musc Reports no additional complaints Neuro Reports no additional complaints Psych Reports no additional complaints Endo Reports no additional complaints Physical Exam Vital Signs: Last Vital Signs Pulse 98 04/03/25 16:18 BP 104/50 L 04/03/25 16:18 Pulse Ox 97 04/03/25 16:18 Oxygen Delivery Method Room Air 04/03/25 16:18 BMI result Body Mass Index 42.2 Const General: healthy appearing and no acute distress Nutritional Appearance: obese Orientation/consciousness: patient oriented x3 Resp Effort & Inspection: normal respiratory effort, able to speak in complete sentences, no tracheal deviation and symmetric chest movement Auscultation: clear to auscultation bilaterally Cardio Rate: regular rate GI Inspection: Yes normal to inspection, No distended and Yes obesity Palpation (GI): Soft to palpation, not firm, nontender and No hepatosplenomegaly present Auscultation: normal bowel sounds General: Yes no CVA tenderness Back/Spine/Pelvis Back: no CVA tenderness Skin General skin exam: elasticity normal, turgor normal and dry skin Neuro General: patient oriented x3 Psych Appearance: grossly normal Mental Status: mental status grossly normal Assessment & Plan Assessment & Plan (1) Vomiting: Code(s): R11.10 - Vomiting, unspecified Category: Medical Qualifiers: Vomiting type: unspecified Nausea presence: with nausea Qualified Code(s): R11.2 - Nausea with vomiting, unspecified (2) GERD (gastroesophageal reflux disease): Code(s): K21.9 - Gastro-esophageal reflux disease without esophagitis Category: Medical Qualifiers: Esophagitis presence: esophagitis presence not specified Qualified Code(s): K21.9 - Gastro-esophageal reflux disease without esophagitis (3) Diarrhea: Code(s): R19.7 - Diarrhea, unspecified Category: Medical Qualifiers: Diarrhea type: functional diarrhea Qualified Code(s): K59.1 - Functional diarrhea (4) Abdominal pain: Code(s): R10.9 - Unspecified abdominal pain Qualifiers: Abdominal location: generalized Qualified Code(s): R10.84 - Generalized abdominal pain Plan Patient will continue to take Reglan as needed for nausea. Continue PPI. Avoid dietary triggers and late night snacking. Staying upright for minimum 3 hours after meals discussed with patient. Patient will be given script for dicyclomine. Patient will need to be careful as she is taking baclofen for back pain and now dicyclomine they can both slow down bowel motility which could cause constipation. Patient was encouraged to take fiber with pre and probiotic. Patient will follow-up in the office in 2-3 months, sooner on as needed basis. Patient is agreeable to current plan of care and verbalizes understanding of instructions. She was given the opportunity to ask questions and all questions answered. Thank you for allowing me to participate in her care Medications: New dicyclomine 10 mg PO BID PRN 90 caps 2RF abdominal discomfort K58.9 - Irritable bowel syndrome, unspecified Refilled metoclopramide HCl (Reglan) Take 15 minutes before meals 5 mg PO TIDWMEAL 40 tabs 0RF R11.0 - Nausea Coding Level of Care Code Est Pt Level 4 (18782) Complex EM visit Add On G2211 Diagnoses Nausea and vomiting, unspecified vomiting type R11.2 Vomiting type: unspecified Nausea presence: with nausea Gastroesophageal reflux disease, unspecified whether esophagitis present K21.9 Esophagitis presence: esophagitis presence not specified Functional diarrhea K59.1 Diarrhea type: functional diarrhea Generalized abdominal pain R10.84 Abdominal location: generalized Time Spent (min) 35 Comment 25 minutes spent with patient and additional 10 minutes spent reviewing her records
== END 2025-04-03 16:47 | disposition home or self-care (01) ==
LOC: HO.HGI 16:07
PROVIDERS: PCP Internal Medicine; Visit Provider Nurse Practitioner Family
DX: R11.2 Nausea with vomiting, unspecified (principal); K21.9 Gastro-esophageal reflux disease without esophagitis; K59.1 Functional diarrhea; R10.84 Generalized abdominal pain
CPT/HCPCS: 99214

== ENCOUNTER → 2025-04-03 | Outpatient (BNVA) | payer MEDICAID, SELFPAY | PROVIDERS: PCP Internal Medicine; Visit Provider Nurse Practitioner Family | DX: K21.9 Gastro-esophageal reflux disease without esophagitis (principal); R11.2 Nausea with vomiting, unspecified; R19.7 Diarrhea, unspecified; R10.84 Generalized abdominal pain | CPT/HCPCS: 99212 ==

== ENCOUNTER 2025-04-05 09:20 | Outpatient (REF) | payer MEDICAID, SELFPAY ==
--- OUTSIDE RECORDS SUMMARY | 2025-04-05 10:11 | XMS_ITS | Encounter Summary ---
Author Organization [employer] Address [address] [facility] 7t [place] [address] Care Team Providers Care Salesperson Furs Name Role Phone Aaron Pisano MD Primary Care Provide r Reason for Visit * Reason Comments Med Refill Encounter Details Date Type Department Care Team ([facility] st Contact Info) Description 10/08/[address] [facility] [address] [place] [address] Aaron Pisano MD [address] [place], [place] [phone] Diarrhea in adult patient; Chronic midline low [...] Care Team (Late st Contact Info) Description 04/09/2025 11:15 AM EDT Office Visit [facility] [address] [place] [phone] Aaron Pisano MD [address] [place] [address] 04/10/2025 10:00 AM EDT Office Visit [facility] ADULT DENTAL [address] [place] [phone] Miki Sarkar DDS [address] [place] [address] 04/12/2025 11:00 AM EDT Clinical Support [facility] [address] [place] [address] Altagracia Mancilla, GRACIELA [address] [place] [address] 08/29/2025 1:00 PM EST Office Visit [facility] [address] [place] [address], [place] [address] Zhanna Hernandez documented as of this encounter Goals Goal Patient Goal Type Associated Problems Recent Progress Patient-Stated? Author Blood Pressure < 140/90 Blood Pressure 126/72( 025 3:04 PM EDT) No Giovanna Banks, Carleen documented as of this encounter Visit Diagnoses Diagnosis Diarrhea in adult patient Chronic midline low back pain without sciatica documented in this encounter Additional Health Concerns Assessment Noted Time PHQ-9 Depression Total Score: 2 06/05/20 24 8:38 AM EDT documented as of this encounter Care Teams Salesperson Furs Relationship Specialty Start Date End Date Aaron Pisano MD [address] [place] [address] PCP - General Internal Medicine 05/10/14 Antonietta Lim Can CrimperManager Operations And Procurement 09/18/24 documented as of this encounter
--- OUTSIDE RECORDS SUMMARY | 2025-04-05 10:11 | XMS_ITS | Encounter Summary ---
Author Organization [employer] Address [address] [facility] 7t [place] [address] Care Team Providers Care Parking Lot Supervisor Name Role Phone Aaron Pisano MD Primary Care Provide r Reason for Visit * Reason Onset Date Comments Med Refill 11/07/2024 Encounter Details Date Type Department Care Team ([facility] st Contact Info) Description 11/07/2024 Refill [facility] [address] [place] [phone] Aaron Pisano MD [address] [place] [address] Chronic midline low back pain without sciatica; [...] Description 04/09/2025 11:15 AM EDT Office Visit [facility] [address] [place] [address] Aaron Pisano MD [address] [place] [address] 04/10/2025 10:00 AM EDT Office Visit [facility] [address] [place] [phone] Miki Sarkar DDS [address] [place] [address] 04/12/2025 11:00 AM EDT Clinical Support [facility] [address] [place] [phone] Altagracia Mancilla RN [address] [place] [address] 08/29/2025 1:00 PM EST Office Visit [facility] [address] [place] [address] Zhanna Hernandez documented as of this encounter Goals Goal Patient Goal Type Associated Problems Recent Progress Patient-Stated? Author Blood Pressure < 140/90 Blood Pressure 126/72( 025 3:04 PM EDT) No Giovanna Banks, SohamD documented as of this encounter Visit Diagnoses Diagnosis Chronic midline low back pain without sciatica Diarrhea in adult patient documented in this encounter Additional Health Concerns Assessment Noted Time PHQ-9 Depression Total Score: 2 06/05/20 24 8:38 AM EDT documented as of this encounter Care Teams Parking Lot Supervisor Relationship Specialty Start Date End Date Aaron Pisano MD [address] [place] [address] PCP - General Internal Medicine 05/10/14 nAtonietta Lim High Density Talc Coater OperatorGis Specialist 09/18/24 documented as of this encounter
--- OUTSIDE RECORDS SUMMARY | 2025-04-05 10:11 | XMS_ITS | Encounter Summary ---
Author Organization [employer] Address [address] [facility] 7t [place] [address] Care Team Providers Care Pest Control Service Representative Name Role Phone Aaron Pisano MD Primary Care Provide r Reason for Visit * Reason Onset Date Comments Reschedule 03/01/2024 Encounter Details Date Type Department Care Team ([facility] st Contact Info) Description 03/01/2024 Telephone [facility] [address] [place] [phone] Aaron Pisano MD [address] [place] [address] Reschedule Social History Tobacco Use Types Packs/Day [...] a call back in order to r/s MARKETING ACCOUNT MANAGER appt documented in this encounter Plan of Treatment Upcoming Encounters Date Type Department Care Team (Late st Contact Info) Description 04/09/2025 11:15 AM EDT Office Visit [facility] [address] [place] [phone] Aaron Pisano MD [address] [place] [address] 04/10/2025 10:00 AM EDT Office Visit [facility] ADULT DENTAL [address] [place] [address] Miki Sarkar DDS [address] [place] [address] 04/12/2025 11:00 AM EDT Clinical Support [facility] [address] [place] [address] Altagracia Mancilla RN [address] [place] [address] 08/29/2025 1:00 PM EST Office Visit [facility] ADULT [facility] [address] [place] [address] Zhanna Hernandez documented as of this encounter Goals Goal Patient Goal Type Associated Problems Recent Progress Patient-Stated? Author Blood Pressure < 140/90 Blood Pressure 126/72( 025 3:04 PM EDT) Giovanna Edwards, Carleen documented as of this encounter Visit Diagnoses Not on filedocumented in this encounter Additional Health Concerns Assessment Noted Time PHQ-9 Depression Total Score: 12 024 1:46 PM EST documented as of this encounter Care Teams Pest Control Service Representative Relationship Specialty Start Date End Date Aaron Pisano MD [address] [place] [address] PCP - General Internal Medicine 05/10/14 Antonietta Lim Master WelderPlate Painter 09/18/24 documented as of this encounter
--- OUTSIDE RECORDS SUMMARY | 2025-04-05 10:11 | XMS_ITS | Encounter Summary ---
Author Organization [employer] Address [address] [facility] 7t [place] [address] Care Team Providers Care Anesthesia Resident Name Role Phone Aaron Pisano MD Primary Care Provide r Reason for Visit * Reason Comments Med Refill Encounter Details Date Type Department Care Team ([facility] st Contact Info) Description 03/29/2025 Refill [facility] [address] [place] [address] Aaron Pisano MD [address] [place] [address] Smoker Social History Tobacco Use Types Packs/Day [...] Description 04/09/2025 11:15 AM EDT Office Visit [facility] [address] [place] [phone] Aaron Pisano MD [address] [place] [address] 04/10/2025 10:00 AM EDT Office Visit [facility] ADULT D[facility] [address] [place] [phone] Miki Sarkar DDS [address] [place] [address] 04/12/2025 11:00 AM EDT Clinical Support [facility] [address] [place] [address] Altagracia Mancilla RN [address] [place] [address] 08/29/2025 1:00 PM EST Office Visit [facility] [address] [place] [address] Zhanna Hernandez documented as of this encounter [...] documented as of this encounter Care Teams Anesthesia Resident Relationship Specialty Start Date End Date Aaron Pisano MD [address] [place] [address] PCP - General Internal Medicine 05/10/14 Antonietta Lim Lavatory AttendantSkin Care Specialist 09/18/24 documented as of this encounter
--- OUTSIDE RECORDS SUMMARY | 2025-04-05 10:11 | XMS_ITS | Encounter Summary ---
Author Organization [employer] Address [address] [facility] 7t [place] [address] Care Team Providers Care Tobacco Flavorer Name Role Phone Aaron Pisano MD Primary Care Provide r Reason for Visit * Reason Comments Med Refill Encounter Details Date Type Department Care Team ([facility] st Contact Info) Description 04/04/2025 Refill [facility] [address] [place] [address] Aaron Pisano MD [address] [place], [place] [phone] Chronic midline low back pain without sciatica [...] Description 04/09/2025 11:15 AM EDT Office Visit [facility] [address] [place] [phone] Aaron Pisano MD [address] [place] [address] 04/10/2025 10:00 AM EDT Office Visit [facility] ADULT DENTAL [address] [place] [address] Miki Sarkar DDS [address] [place] [address] 04/12/2025 11:00 AM EDT Clinical Support [facility] [address] [place] [phone] Altagracia Mancilla RN [address] [place] [address] 08/29/2025 1:00 PM EST Office Visit [facility] ADULT DENTAL [address] [place] [address] Zhanna Hernandez documented as of this encounter [...] documented as of this encounter Care Teams Tobacco Flavorer Relationship Specialty Start Date End Date Aaron Pisano MD [address] [place] [address] PCP - General Internal Medicine 05/10/14 Antonietta Lim Tongue And Groove Machine FeederBiscuit Maker 09/18/24 documented as of this encounter
--- OUTSIDE RECORDS SUMMARY | 2025-04-05 10:11 | XMS_ITS | Encounter Summary ---
Author Organization [employer] Address [address] [facility] 7t [place] [address] Care Team Providers Care Salesperson Surgical Appliances Name Role Phone Aaron Pisano MD Primary Care Provide r Reason for Visit * Reason Comments Med Refill Encounter Details Date Type Department Care Team ([facility] st Contact Info) Description 01/30/2024 Refill [facility] [address] [place] [address] Aaron Pisano MD [address], [place] [phone] Chronic midline low back pain without sciatica [...] Description 04/09/2025 11:15 AM EDT Office Visit [facility] [address] [place] [address] Aaron Pisano MD [address] [place] [address] 04/10/2025 10:00 AM EDT Office Visit [facility] [address] [place] [address] Miki Sarkar DDS [address] [place] [address] 04/12/2025 11:00 AM EDT Clinical Support [facility] [address] [place] [address] Altagracia Mancilla RN [address] [place] [address] 08/29/2025 1:00 PM EST Office Visit [facility] [address] [place] [phone] Zhanna Hernandez documented as of this encounter [...] as of this encounter Care Teams Salesperson Surgical Appliances Relationship Specialty Start Date End Date Aaron Pisano MD [address] [place] [address] PCP - General Internal Medicine 05/10/14 Antonietta Lim Residence Life DirectorAdministrative Personal Assistant 09/18/24 documented as of this encounter
--- OUTSIDE RECORDS SUMMARY | 2025-04-05 10:12 | XMS_ITS | Encounter Summary ---
Author Organization [employer] Address 75 [facility] 7t [place] [address] Care Team Providers Care Archaeologist Name Role Phone Aaron Pisano MD Primary Care Provide r Reason for Visit * Reason Comments Med Refill Encounter Details Date Type Department Care Team ([facility] st Contact Info) Description 08/09/2023 Refill [facility] MEDICINE [address] [place] [address] Sumi Vang ANP 230 [place] [address] Chronic midline low back pain without sciatica [...] with others, in a hotel, in a long-term, living outside on the street, on a [...] Description 04/09/2025 11:15 AM EDT Office Visit [facility] MEDICINE [address] [place] [phone] Aaron Pisano MD [address] [place] [address] 04/10/2025 10:00 AM EDT Office Visit [facility] ADULT DENTAL [address] [place] [address] Miki Sarkar DDS [address] [place] [address] 04/12/2025 11:00 AM EDT Clinical Support [facility] MEDICINE [address] [place] [address] Altagracia Mancilla, RN [address] [place] [address] 08/29/2025 1:00 PM EST Office Visit [facility] ADULT DENTAL [address] [place] [address] Zhanna Hernandez documented as of this encounter Goals Goal Patient Goal Type Associated Problems Recent Progress Patient-Stated? Author Blood Pressure < 140/90 Blood Pressure 126/72( 025 3:04 PM EDT) No Giovanna Banks, SohamD documented as of this encounter Visit Diagnoses Diagnosis Chronic midline low back pain without sciatica documented in this encounter Care Teams Archaeologist Relationship Specialty Start Date End Date Aaron Pisano MD 230 [place] [address] PCP - General Internal Medicine 05/10/14 Antonietta Lim Sales Representative JewelryJunior Art Director 09/18/24 documented as of this encounter
--- OUTSIDE RECORDS SUMMARY | 2025-04-05 10:12 | XMS_ITS | Encounter Summary ---
Author Organization [employer] Address [address] [place] [address] 7 [place] [address] Care Team Providers Care Bottle Label Inspector Name Role Phone Aaron Pisano MD Primary Care Provide r Reason for Visit * Reason Onset Date Comments Med Refill 09/14/2022 Encounter Details Date Type Department Care Team (Late Contact Info) Description 09/14/2022 Telephone [facility] MEDICINE [address] [place] [phone] Aaron Pisano MD [address] [place] [address] Med Refill Social History Tobacco Use Types [...] Description 04/09/2025 11:15 AM EDT Office Visit [facility] MEDICINE [address] [place] [address] Aaron Pisano MD [address] [place] [address] [place] [address] 04/10/2025 10:00 AM EDT Office Visit [facility] ADULT DENTAL [address] [place] [address] Miki Sarkar DDS [address] [place] [address] 04/12/2025 11:00 AM EDT Clinical Support [facility] MEDICINE [address] [place] [address] Altagracia Mancilla, RN [address] [place] [address] 08/29/2025 1:00 PM EST Office Visit [facility] ADULT DENTAL [address] [place] [address] Zhanna Hernandez documented as of this encounter Visit Diagnoses Not on filedocumented in this encounter Care Teams Bottle Label Inspector Relationship Specialty Start Date End Date Aaron Pisano MD [address] [place] [address] PCP - General Internal Medicine 05/10/14 Antonietta Lim Dog Show JudgeCoffee Machine Technician 09/18/24 documented as of this encounter
--- OUTSIDE RECORDS SUMMARY | 2025-04-05 10:12 | XMS_ITS | Encounter Summary ---
Author Organization [employer] Address 75 [facility] 7t [place] [address] Care Team Providers Care Pressroom Foreman Name Role Phone Aaron Pisano MD Primary Care Provide r Reason for Visit * Reason Onset Date Comments Med Refill 08/02/2024 Encounter Details Date Type Department Care Team ([facility] Contact Info) Description 08/02/2024 Telephone [facility] MEDICINE [address] [place] [address] Aaron Pisano MD [address] [place] [address] Med Refill Social History Tobacco Use Types [...] Description 04/09/2025 11:15 AM EDT Office Visit [facility] MEDICINE [address] [place] [address] Aaron Pisano MD [address] [place] [address] 04/10/2025 10:00 AM EDT Office Visit [facility] ADULT DENTAL [address] [place] [address] Miki Sarkar DDS 230 [place] [address] 04/12/2025 11:00 AM EDT Clinical Support [facility] MEDICINE [address] [place] [address] Altagracia Mancilla RN 505 [place] [address] 08/29/2025 1:00 PM EST Office Visit [facility] ADULT DENTAL [address] [place] [address] Zhanna Hernandez documented as of this encounter [...] documented as of this encounter Care Teams Pressroom Foreman Relationship Specialty Start Date End Date Aaron Pisano MD [address] [place] [address] PCP - General Internal Medicine 05/10/14 Antonietta Lim Trauma CounsellorIndustrial Truck Mechanic 09/18/24 documented as of this encounter
--- OUTSIDE RECORDS SUMMARY | 2025-04-05 10:12 | XMS_ITS | Encounter Summary ---
Author Organization [employer] Address 75 [facility] 7t [place] [address] Care Team Providers Care Mental Health Clinician Name Role Phone Aaron Pisano MD Primary Care Provide r Reason for Visit * Reason Comments Med Refill Encounter Details Date Type Department Care Team ([facility] st Contact Info) Description 07/04/2023 Refill [facility] & [facility]EDS [address] [place], [place] [phone] Sumi Vang, ANP 230 [place] [address] Social History Tobacco Use Types Packs/Day Years Used Date Smoking Tobacco: Former Cigarettes Passive Smoke Exposure: Never Smokeless Tobacco: Never Alcohol Use Standard Drinks/Week Comments Never 0 (1 standard drink = 0.6 oz pur e alcohol) Housing Stability Answer Date Recorded What is your housing situation today? I do not have housing (Staying with others, in a hotel, in a fci, living outside on the street, on a [...] Description 04/09/2025 11:15 AM EDT Office Visit [facility] MEDICINE [address] [place] [address] Aaron Pisano MD [address] [place] [address] 04/10/2025 10:00 AM EDT Office Visit [facility] ADULT DENTAL [address] [place] [address] Miki Sarkar DDS [address] [place] [address] 04/12/2025 11:00 AM EDT Clinical Support [facility] MEDICINE [address] [place] [address] Altagracia Mancilla, GRACIELA 505 [place] [address] 08/29/2025 1:00 PM EST Office Visit [facility] ADULT DENTAL [address] [place] [address] Zhanna Hernandez documented as of this encounter Goals Goal Patient Goal Type Associated Problems Recent Progress Patient-Stated? Author Blood Pressure < 140/90 Blood Pressure 126/72( 025 3:04 PM EDT) No Giovanna Banks, SohamD documented as of this encounter Visit Diagnoses Not on filedocumented in this encounter Care Teams Mental Health Clinician Relationship Specialty Start Date End Date Aaron Pisano MD [address] [place] [address] PCP - General Internal Medicine 05/10/14 Antonietta Lim Bi Solutions ArchitectShoe Fitter 09/18/24 documented as of this encounter
--- OUTSIDE RECORDS SUMMARY | 2025-04-05 10:12 | XMS_ITS | Encounter Summary ---
Author Organization [employer] Address 75 [facility] 7t [place] [address] Care Team Providers Care Probate Clerk Name Role Phone Aaron Pisano MD Primary Care Provide r Reason for Visit * Reason Onset Date Comments Med Refill 04/03/2025 Encounter Details Date Type Department Care Team ([facility] Contact Info) Description 04/03/2025 Telephone [facility] MEDICINE [address] [place] [address] Aaron Pisano MD 230 [place] [address] Med Refill Social History Tobacco Use Types [...] encounter Miscellaneous Notes * Telephone Encounter - Deborah Lira - 04/03/2025 10:57 AM EDT TC from pt requesting medication refill. Medications needing refill : oxyCODONE (Roxicodone) 5 MG immediate release tablet To be sent to: [facility] - [place], [place] - [address] [place] [address] documented in this encounter Plan of Treatment Upcoming Encounters Date Type Department Care Team ([facility] st Contact Info) Description 04/09/2025 11:15 AM EDT Office Visit [facility] MEDICINE [address] [place] [address] Aaron Pisano MD 230 [place] [address] 04/10/2025 10:00 AM EDT Office Visit [facility] ADULT DENTAL [address] [place] [address] Miki Sarkar DDS 230 [place] [address] 04/12/2025 11:00 AM EDT Clinical Support [facility] MEDICINE [address] [place] [address] Altagracia Mancilla, RN 505 [place] [address] 08/29/2025 1:00 PM EST Office Visit [facility] ADULT DENTAL [address] [place] [address] Zhanna Hernandez documented as of this encounter [...] documented as of this encounter Care Teams Probate Clerk Relationship Specialty Start Date End Date Aaron Pisano MD [address] [place] [address] PCP - General Internal Medicine 05/10/14 Antonietta Lim Clerical SpecialistAccess Rn 09/18/24 documented as of this encounter
--- OUTSIDE RECORDS SUMMARY | 2025-04-05 10:12 | XMS_ITS | Encounter Summary ---
Author Organization [employer] Address [address] [place] [address] 7t [place] [address] Care Team Providers Care Provisioning Specialist Name Role Phone Aaron Pisano MD Primary Care Provide r Reason for Visit * Reason Comments Med Refill Encounter Details Date Type Department Care Team ([facility] Contact Info) Description 02/18/2023 Refill [facility] MEDICINE [address] [place] [address] Aaron Pisano MD [address] [place] [address] [phone] Social History Tobacco Use Types Packs/Day Years [...] Upcoming Encounters Date Type Department Care Team ([facility] Contact Info) Description 04/09/2025 11:15 AM EDT Office Visit [facility] MEDICINE [address] [place] [address] Aaron Pisano MD 230 [place] [address] 04/10/2025 10:00 AM EDT Office Visit [facility] ADULT DENTAL [address] [place] [address] Miki Sarkar DDS [address] [place] [address] 04/12/2025 11:00 AM EDT Clinical Support [facility] MEDICINE [address] [place] [address] Altagracia Mancilla, RN 505 [place] [address] 08/29/2025 1:00 PM EST Office Visit [facility] ADULT DENTAL [address] [place] [address] Zhanna Hernandez documented as of this encounter Visit Diagnoses Not on filedocumented in this encounter Care Teams Provisioning Specialist Relationship Specialty Start Date End Date Aaron Pisano MD [address] [place] [address] PCP - General Internal Medicine 05/10/14 Antonietta Lim Medicare Sales ExecutiveStriker Out 09/18/24 documented as of this encounter
--- OUTSIDE RECORDS SUMMARY | 2025-04-05 10:12 | XMS_ITS | Encounter Summary ---
Author Organization [employer] Address 75 [facility] 7 [place] [address] Care Team Providers Care Publications Manager Name Role Phone Aaron Pisano MD Primary Care Provide r Reason for Visit * Reason Onset Date Comments Med Refill 08/12/2024 Encounter Details Date Type Department Care Team ([facility] st Contact Info) Description 08/12/2024 Refill [facility] MEDICINE [address] [place] [address] Aaron Pisano MD 230 [place] [address] Social History Tobacco Use Types Packs/Day Years [...] Description 04/09/2025 11:15 AM EDT Office Visit [facility] MEDICINE [address] [place] [address] Aaron Pisano MD [address] [place] [address] 04/10/2025 10:00 AM EDT Office Visit [facility] ADULT DENTAL [address] [place] [address] Miki Sarkar DDS [address] [place] [address] 04/12/2025 11:00 AM EDT Clinical Support [facility] MEDICINE [address] [place] [address] Altagracia Mancilla RN 505 [place] [address] 08/29/2025 1:00 PM EST Office Visit [facility] ADULT DENTAL [address] [place] [address] Zhanna Hernandez documented as of this encounter [...] documented as of this encounter Care Teams Publications Manager Relationship Specialty Start Date End Date Aaron Pisano MD [address] [place] [address] PCP - General Internal Medicine 05/10/14 Antonietta Lim Marketing Automation AnalystMed Spa Manager 09/18/24 documented as of this encounter
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
--- OUTSIDE RECORDS SUMMARY | 2025-04-05 10:12 | XMS_ITS | Encounter Summary ---
Author Organization [employer] Address [address] [place] [address] 7 [place] [address] Care Team Providers Care Structural Steel Erection Supervisor Name Role Phone Aaron Pisano MD Primary Care Provide r Reason for Visit * Reason Comments Med Refill Encounter Details Date Type Department Care Team (Late Contact Info) Description 04/18/2023 Refill [facility] MEDICINE [address] [place] [phone] Aaron Pisano MD [address] [place] [address] [phone] Chronic bilateral low back pain without sciatica [...] Encounters Date Type Department Care Team (Late Contact Info) Description 04/09/2025 11:15 AM EDT Office Visit [facility] MEDICINE [address] [place] [address] Aaron Pisano MD [address] [place] [address] [phone] 04/10/2025 10:00 AM EDT Office Visit [facility] ADULT DENTAL [address] [place] [address] Miki Sarkar DDS [address] [place] [address] 04/12/2025 11:00 AM EDT Clinical Support [facility] MEDICINE [address] [place] [address] Altagracia Mancilla, GRACIELA 505 [place] [address] 08/29/2025 1:00 PM EST Office Visit [facility] ADULT DENTAL [address] [place] [address] Zhanna Hernandez documented as of this encounter Goals Goal Patient Goal Type Associated Problems Recent Progress Patient-Stated? Author Blood Pressure < 140/90 Blood Pressure 126/72( 025 3:04 PM EDT) No Giovanna Banks, SohamD documented as of this encounter Visit Diagnoses Diagnosis Chronic bilateral low back pain without sciatica documented in this encounter Care Teams Structural Steel Erection Supervisor Relationship Specialty Start Date End Date Aaron Pisano MD [address] [place] [address] PCP - General Internal Medicine 05/10/14 Antonietta Lim Precision Assembler BenchSharepoint Solutions Developer 09/18/24 documented as of this encounter
--- OUTSIDE RECORDS SUMMARY | 2025-04-05 10:12 | XMS_ITS | Encounter Summary ---
Author Organization [employer] Address 75 [facility] 7 [place] [address] Care Team Providers Care Gambling Counsellor Name Role Phone Aaron Pisano MD Primary Care Provide r Reason for Visit * Reason Onset Date Comments Med Refill 01/04/2025 Encounter Details Date Type Department Care Team (Late st Contact Info) Description 01/04/2025 Refill [facility] MEDICINE [address] [place] [address] Fam Hartman MD [address] [place] [phone] Chronic midline low back pain without sciatica [...] Description 04/09/2025 11:15 AM EDT Office Visit [facility] MEDICINE [address] [place] [phone] Aaron Pisano MD [address] [place] [address] 04/10/2025 10:00 AM EDT Office Visit [facility] ADULT DENTAL [address] [place] [address] Miki Sarkar DDS [address] [place] [address] 04/12/2025 11:00 AM EDT Clinical Support [facility] MEDICINE [address] [place] [address] Altagracia Mancilla, GRACIELA [address] [place] [address] 08/29/2025 1:00 PM EST Office Visit [facility] ADULT DENTAL [address] [place] [address] Zhanna Hernandez documented as of this encounter [...] documented as of this encounter Care Teams Gambling Counsellor Relationship Specialty Start Date End Date Aaron Pisano MD [address] [place] [address] PCP - General Internal Medicine 05/10/14 Antonietta Lim Supervisor Personnel ClerksBinding Cutter Synthetic Cloth 09/18/24 documented as of this encounter
--- OUTSIDE RECORDS SUMMARY | 2025-04-05 10:12 | XMS_ITS | Encounter Summary ---
Author Organization [employer] Address 75 [facility] 7 [place] [address] Care Team Providers Care Medical Chemist Name Role Phone Aaron Pisano MD Primary Care Provide r Reason for Visit * Reason Onset Date Comments Med Refill 01/07/2025 Encounter Details Date Type Department Care Team (Late st Contact Info) Description 01/07/2025 Refill [facility] MEDICINE [address] [place] [address] Fam Hartman MD [address] [place] [phone] Chronic midline low back pain without sciatica [...] Description 04/09/2025 11:15 AM EDT Office Visit [facility] MEDICINE [address] [place] [address] Aaron Pisano MD [address] [place] [address] 04/10/2025 10:00 AM EDT Office Visit [facility] ADULT DENTAL [address] [place] [address] Miki Sarkar DDS [address] [place] [address] 04/12/2025 11:00 AM EDT Clinical Support [facility] MEDICINE [address] [place] [address] Altagracia Mancilla, GRACIELA [address] [place] [address] 08/29/2025 1:00 PM EST Office Visit [facility] ADULT DENTAL [address] [place] [address] Zhanna Hernandez documented as of this encounter [...] as of this encounter Care Teams Medical Chemist Relationship Specialty Start Date End Date Aaron Pisano MD [address] [place] [address] PCP - General Internal Medicine 05/10/14 Antonietta Lim Stand GrinderTwister Doffer 09/18/24 documented as of this encounter
--- OUTSIDE RECORDS SUMMARY | 2025-04-05 10:12 | XMS_ITS | Encounter Summary ---
Author Organization [employer] Address 75 [facility] 7 [place] [address] Care Team Providers Care Instrument Assembly Supervisor Name Role Phone Aaron Pisano MD Primary Care Provide r Reason for Visit * Reason Onset Date Comments Med Refill 11/16/2022 Encounter Details Date Type Department Care Team ([facility] st Contact Info) Description 11/16/2022 Telephone [facility] [address] [place] [address] Aaron Pisano MD [address] [place] [address] Med Refill Social History Tobacco Use Types [...] med refill status Please contact pt at [phone] * Telephone Encounter - Natasha Jain - 11/30/2022 1:14 PM EDT Tc from pt requesting medication status. Please contact pt at [phone] * Telephone Encounter - Jenny Smith - 11/16/2022 4:36 PM EDT Tc from pt requesting med refill for medication oxyCODONE (Roxicodone) 5 MG immediate release tablet. documented in this encounter Plan of Treatment Upcoming Encounters Date Type Department Care Team (Late st Contact Info) Description 04/09/2025 11:15 AM EDT Office Visit [facility] [address] [place] [address] Aaron Pisano MD [address] [place] [address] 04/10/2025 10:00 AM EDT Office Visit [facility] ADULT DENTAL [address] [place] [address] Miki Sarkar DDS 230 [place] [address] 04/12/2025 11:00 AM EDT Clinical Support [facility] [address] [place] [address] Altagracia Mancilla, GRACIELA 505 [place] [address] 08/29/2025 1:00 PM EST Office Visit [facility] ADULT [facility] [address] [place] [address] Zhanna Hernandez documented as of this encounter Visit Diagnoses Not on filedocumented in this encounter Care Teams Instrument Assembly Supervisor Relationship Specialty Start Date End Date Aaron Pisano MD [address] [place] [address] PCP - General Internal Medicine 05/10/14 Antonietta Lim Pin CleanerAirport Control Operator 09/18/24 documented as of this encounter
--- OUTSIDE RECORDS SUMMARY | 2025-04-05 10:12 | XMS_ITS | Encounter Summary ---
Author Organization [employer] Address 75 [facility] 7t [place] [address] Care Team Providers Care Bass Singer Name Role Phone Aaron Pisano MD Primary Care Provide r Reason for Visit * Reason Onset Date Comments Med Refill 04/02/2025 Encounter Details Date Type Department Care Team ([facility] st Contact Info) Description 04/02/2025 Refill [facility] MEDICINE [address] [place] [address] Aaron Pisano MD [address] [place] [address] Social History Tobacco Use Types Packs/Day Years [...] Description 04/09/2025 11:15 AM EDT Office Visit [facility] MEDICINE [address] [place] [address] Aaron Pisano MD [address] [place] [address] 04/10/2025 10:00 AM EDT Office Visit [facility] ADULT DENTAL [address] [place] [address] Miki Sarkar DDS [address] [place] [address] 04/12/2025 11:00 AM EDT Clinical Support [facility] MEDICINE [address] [place] [address] Altagracia Mancilla RN 505 [place] [address] 08/29/2025 1:00 PM EST Office Visit [facility] ADULT DENTAL [address] [place] [address] Zhanna Hernandez documented as of this encounter [...] documented as of this encounter Care Teams Bass Singer Relationship Specialty Start Date End Date Aaron Pisano MD [address] [place] [address] PCP - General Internal Medicine 05/10/14 Antonietta Lim Renewable Energy Division ManagerEditor Index 09/18/24 documented as of this encounter
--- OUTSIDE RECORDS SUMMARY | 2025-04-05 10:12 | XMS_ITS | Encounter Summary ---
Author Organization [employer] Address 75 [facility] 7 [place] [address] Care Team Providers Care Joss House Keeper Name Role Phone Aaron Pisano MD Primary Care Provide r Encounter Details Date Type Department Care Team (Latest Contact Info) Description 07/16/2019 Abstract [facility] CONVERSIONS Dental, Provider, DDS Social History [...] Description 04/09/2025 11:15 AM EDT Office Visit [facility] MEDICINE [address] [place] [address] Aaron Pisano MD [address] [place] [address] 04/10/2025 10:00 AM EDT Office Visit [facility] ADULT DENTAL [address] [place] [address] Miki Sarkar DDS 230 [place] [address] 04/12/2025 11:00 AM EDT Clinical Support [facility] MEDICINE [address] [place] [address] Altagracia Mancilla RN [address] [place] [address] 08/29/2025 1:00 PM EST Office Visit [facility] ADULT DENTAL 230 [place] [address] Zhanna Hernandez documented as of this encounter Visit Diagnoses Not on filedocumented in this encounter Care Teams Joss House Keeper Relationship Specialty Start Date End Date Aaron Pisano MD 230 [place] [address] PCP - General Internal Medicine 05/10/14 Antonietta Lim Field Kiln BurnerAda Accommodation Consultant 09/18/24 documented as of this encounter
--- OUTSIDE RECORDS SUMMARY | 2025-04-05 10:12 | XMS_ITS | Encounter Summary ---
Author Organization [employer] Address 75 [facility] 7t [place] [address] Care Team Providers Care Public Events Facilities Rental Manager Name Role Phone Aaron Pisano MD Primary Care Provide r Reason for Visit * Reason Onset Date Comments Med Refill 04/02/2025 Encounter Details Date Type Department Care Team ([facility] st Contact Info) Description 04/02/2025 Refill [facility] MEDICINE 230 [place] [address] Aaron Pisano MD 230 [place] [address] Diarrhea in adult patient Social History Tobacco [...] Description 04/09/2025 11:15 AM EDT Office Visit [facility] MEDICINE [address] [place] [address] Aaron Pisano MD [address] [place] [address] 04/10/2025 10:00 AM EDT Office Visit [facility] ADULT DENTAL [address] [place] [address] Miki Sarkar DDS [address] [place] [address] 04/12/2025 11:00 AM EDT Clinical Support [facility] MEDICINE [address] [place] [address] Altagracia Mancilla, GRACIELA 505 [place] [address] 08/29/2025 1:00 PM EST Office Visit [facility] ADULT DENTAL [address] [place] [address] [place] [address] Zhanna Hernandez documented as of this encounter [...] documented as of this encounter Care Teams Public Events Facilities Rental Manager Relationship Specialty Start Date End Date Aaron Pisano MD 230 [place] [address] PCP - General Internal Medicine 05/10/14 Antonietta Lim [facility] CnaManager Play 09/18/24 documented as of this encounter
--- OUTSIDE RECORDS SUMMARY | 2025-04-05 10:12 | XMS_ITS | Encounter Summary ---
Author Organization [employer] Address [address] [facility] [address] 7t [place] [address] Care Team Providers Care Plastic And Reconstructive Surgeon Name Role Phone Aaron Pisano MD Primary Care Provide r Encounter Details Date Type Department Care Team (Latest Contact Info) Description 04/02/2025 Travel Social History Tobacco Use Types Packs/Day [...] Description 04/09/2025 11:15 AM EDT Office Visit [facility] [address] [place] [address] Aaron Pisano MD [address] [place] [address] 04/10/2025 10:00 AM EDT Office Visit [facility] ADULT DENTAL [address] [place] [address] Miki Sarkar DDS [address] [place] [address] 04/12/2025 11:00 AM EDT Clinical Support [facility] MED[facility]INE [address] [place] [address] Altagracia Mancilla, GRACIELA 505 [place] [address] 08/29/2025 1:00 PM EST Office Visit [facility] ADULT DENTAL [address] [place] [address] Zhanna Hernandez documented as of this encounter [...] documented as of this encounter Care Teams Plastic And Reconstructive Surgeon Relationship Specialty Start Date End Date Aaron Pisano MD 230 [place] [address] PCP - General Internal Medicine 05/10/14 Antonietta Lim Chemist InorganicElectronic Field Service Engineer 09/18/24 documented as of this encounter
--- OUTSIDE RECORDS SUMMARY | 2025-04-05 10:12 | XMS_ITS | Encounter Summary ---
Author Organization [employer] Address 75 [facility] 7t [place] [address] Care Team Providers Care Lightout Examiner Name Role Phone Aaron Pisano MD Primary Care Provide r Reason for Visit * Reason Comments Med Refill Encounter Details Date Type Department Care Team ([facility] st Contact Info) Description 07/07/2023 Refill [facility] MEDICINE [address] [place] [address] Aaorn Pisano MD [address] [place] [address] Social History Tobacco Use Types Packs/Day Years Used Date Smoking Tobacco: Former Cigarettes Passive Smoke Exposure: Never Smokeless Tobacco: Never Alcohol Use Standard Drinks/Week Comments Never 0 (1 standard drink = 0.6 oz pur e alcohol) Housing Stability Answer Date Recorded What is your housing situation today? I do not have housing (Staying with others, in a hotel, in a snf, living outside on the street, on a [...] EDT Office Visit [facility] MEDICINE [address] [place] [address] Aaron Pisano MD [address] [place] [address] 04/10/2025 10:00 AM EDT Office Visit [facility] ADULT DENTAL [address] [place] [address] Miki Sarkar DDS [address] [place] [address] 04/12/2025 11:00 AM EDT Clinical Support [facility] MEDICINE [address] [place] [address] Altagracia Mancilla, RN [address] [place] [address] 08/29/2025 1:00 PM EST Office Visit [facility] ADULT DENTAL [address] [place] [address] Zhanna Hernandez documented as of this encounter Goals Goal Patient Goal Type Associated Problems Recent Progress Patient-Stated? Author Blood Pressure < 140/90 Blood Pressure 126/72( 025 3:04 PM EDT) No Giovanna Banks, SohamD documented as of this encounter Visit Diagnoses Not on filedocumented in this encounter Care Teams Lightout Examiner Relationship Specialty Start Date End Date Aaron Pisano MD [address] [place] [address] PCP - General Internal Medicine 05/10/14 Antonietta Lim Residential Support SpecialistLot Boss 09/18/24 documented as of this encounter
--- OUTSIDE RECORDS SUMMARY | 2025-04-05 10:12 | XMS_ITS | Encounter Summary ---
Author Organization [employer] Address [address] [place] [address] 7 [place] [address] Care Team Providers Care Rotor Assembler Name Role Phone Aaron Pisano MD Primary Care Provide r Reason for Visit * Reason Comments Med Refill Encounter Details Date Type Department Care Team (Late Contact Info) Description 03/15/2023 Refill [facility]INE [address] [place] [address] Aaron Pisano MD [address] [place] [address] [phone] Smoker Social History Tobacco Use Types Packs/Day [...] Description 04/09/2025 11:15 AM EDT Office Visit [facility] MEDICINE [address] [place] [address] Aaron Pisano MD [address] [place] [address] [phone] 04/10/2025 10:00 AM EDT Office Visit [facility] ADULT DENTAL 230 [place] [address] Miki Sarkar DDS [address] [place] [address] 04/12/2025 11:00 AM EDT Clinical Support [facility] MEDICINE 230 [place] [address] Altagracia Mancilla, GRACIELA 505 [place] [address] 08/29/2025 1:00 PM EST Office Visit [facility] ADULT DENTAL 230 [place] [address] Zhanna Hernandez documented as of this encounter Visit Diagnoses Diagnosis Smoker Tobacco use disorder documented in this encounter Care Teams Rotor Assembler Relationship Specialty Start Date End Date Aaron Pisano MD [address] [place] [address] PCP - General Internal Medicine 05/10/14 Antonietta Lim Director PrintBooster Pump Operator 09/18/24 documented as of this encounter
--- OUTSIDE RECORDS SUMMARY | 2025-04-05 10:12 | XMS_ITS | Encounter Summary ---
Author Organization [employer] Address [address] [place] [address] 7 [place] [address] Care Team Providers Care Derrick Hand Name Role Phone Aaron Pisano MD Primary Care Provide r Reason for Visit * Reason Onset Date Comments Med Refill 04/04/2023 Encounter Details Date Type Department Care Team ([facility] st Contact Info) Description 04/04/2023 Telephone [facility] MEDICINE [address] [place] [address] Aaron Pisano MD 230 [place] [address] Med Refill Social History Tobacco Use Types [...] Description 04/09/2025 11:15 AM EDT Office Visit [facility] MEDICINE [address] [place] [address] Aaron Pisano MD 230 [place] [address] 04/10/2025 10:00 AM EDT Office Visit [facility] ADULT DENTAL [address] [place] [address] Miki Sarkar DDS [address] [place] [address] 04/12/2025 11:00 AM EDT Clinical Support [facility] MEDICINE 230 [place] [address] Altagracia Mancilla, RN [address] [place], [place] [phone] 08/29/2025 1:00 PM EST Office Visit [facility] ADULT DENTAL 230 [place] [address] Zhanna Hernandez documented as of this encounter Goals Goal Patient Goal Type Associated Problems Recent Progress Patient-Stated? Author Blood Pressure < 140/90 Blood Pressure 126/72( 025 3:04 PM EDT) No Giovanna Banks, PharmD documented as of this encounter Visit Diagnoses Not on filedocumented in this encounter Care Teams Derrick Hand Relationship Specialty Start Date End Date Aaron Pisano MD [address] [place] [address] PCP - General Internal Medicine 05/10/14 Antonietta Lim Civil Cad DesignerVehicle Return Associate 09/18/24 documented as of this encounter
--- OUTSIDE RECORDS SUMMARY | 2025-04-05 10:12 | XMS_ITS | Encounter Summary ---
Author Organization [employer] Address [address] [facility] 7t [place] [address] Care Team Providers Care Measurement Technician Name Role Phone Aaron Pisano MD Primary Care Provide r Reason for Visit * Reason Onset Date Comments pt1 01/07/2025 Encounter Details Date Type Department Care Team ([facility] st Contact Info) Description 01/07/2025 Telephone [facility] MEDICINE [address] [place] [address] Aaron Pisano MD 230 [place] [address] pt1 Social History Tobacco Use Types Packs/Day Years [...] * Telephone Encounter - Joann Leone - 01/07/2025 10:49 AM EDT Tc from pt requesting an update to PT-1 transportation for appointment February 01, 2025. Patient reports the scheduled procedure will involve anesthesia and is now requesting transportation with an escort due to this requirement. Please update information for address [address] [place] [address] documented in this encounter Plan of Treatment Upcoming Encounters Date Type Department Care Team (Late st Contact Info) Description 04/09/2025 11:15 AM EDT Office Visit [facility] MEDICINE 230 [place] [address] Aaron Pisano MD 230 [place] [address] 04/10/2025 10:00 AM EDT Office Visit [facility] ADULT DENTAL 230 [place] [address] Miki Sarkar DDS [address] [place] [address] 04/12/2025 11:00 AM EDT Clinical Support [facility] MEDICINE [address] [place] [address] Altagracia Mancilla, RN 505 [place] [address] 08/29/2025 1:00 PM EST Office Visit [facility] ADULT DENTAL 230 [place] [address] Zhanna Hernandez documented as of this encounter Goals Goal Patient Goal Type Associated Problems Recent Progress Patient-Stated? Author Blood Pressure < 140/90 Blood Pressure 126/72( 025 3:04 PM EDT) Giovanna Edwards, PharmD documented as of this encounter Visit Diagnoses Not on filedocumented in this encounter Additional Health Concerns Assessment Noted Time PHQ-9 Depression Total Score: 2 06/05/20 24 8:38 AM EDT documented as of this encounter Care Teams Measurement Technician Relationship Specialty Start Date End Date Aaron Pisano MD [address] [place] [address] PCP - General Internal Medicine 05/10/14 Antonietta Lim Biochemical Development EngineerBiodiesel Product Manager 09/18/24 documented as of this encounter
--- OUTSIDE RECORDS SUMMARY | 2025-04-05 10:12 | XMS_ITS | Encounter Summary ---
Author Organization [employer] Address 75 [facility] 7t [place] [address] Care Team Providers Care Executor Of Estate Name Role Phone Aaron Pisano MD Primary Care Provide r Reason for Visit * Reason Onset Date Comments Nurse Triage 02/21/2023 Encounter Details Date Type Department Care Team ([facility] st Contact Info) Description 02/21/2023 Telephone [facility] MEDICINE [address] [place] [address] Aaron Pisano MD [address] [place] [address] Nurse Triage Social History Tobacco Use Types [...] 4:45 PM EDT Please assist with obtaining [facility] ED discharge notes for 02/10/23. This technical document writer does not have [employer] access. Pt sent to ER after visit with [facility]. * Telephone Encounter - Leora Campbell RN - 02/21/2023 4:39 PM EDT Call to Zee Villanueva , reports having vomiting since seen at [facility] ER. Per pt was given abx for UTI and zofran. Per pt completed abx. Per pt continues to have vomiting. 5 episodes of vomiting in last 24 hours. No blood or green bile in vomit. Pt still taking chantix. Pt offered WIC tomorrow. Pt declines needs appt 3 days out for PT1. Agrees to visit with [facility] team provider. Reviewed home care advise and reasons to call back. Future Appointments Date Time Provider Department Center 02/25/2023 9:30 AM DUY Taveras MEDICINE [facility] 03/21/2023 1:00 PM Giovanna Payne PharmD MEDICINE [facility] 04/27/2023 3:00 PM Aniya Anderson RN MEDICINE [facility] Multiple (2) protocols were used on [...] become worse * Telephone Encounter - Natasha Jain - 02/21/2023 4:33 PM EDT Symptom: Vomiting Outcome: Schedule an urgent appointment (within 4 hours) or talk to a nurse or provider soon Reason: Vomited at least once in the past 8 hours The caller accepted this outcome Please contact pt at [phone] Pt was at [facility] hospital on 02/10/2023 for same symptoms. documented in this encounter Plan of Treatment Upcoming Encounters Date Type Department Care Team (Late st Contact Info) Description 04/09/2025 11:15 AM EDT Office Visit [facility] MEDICINE [address] [place] [address] Aaron Pisano MD [address] [place] [address] 04/10/2025 10:00 AM EDT Office Visit [facility] ADULT DENTAL [address] [place] [address] Miki Sarkar DDS 230 [place] [address] 04/12/2025 11:00 AM EDT Clinical Support [facility] MEDICINE [address] [place] [address] Altagracia Mancilla, GRACIELA 505 [place] [address] 08/29/2025 1:00 PM EST Office Visit [facility] ADULT DENTAL 230 [place] [address] Zhanna Hernandez documented as of this encounter Visit Diagnoses Not on filedocumented in this encounter Care Teams Executor Of Estate Relationship Specialty Start Date End Date Aaron Pisano MD [address] [place], [place] [address] [address] PCP - General Internal Medicine 05/10/14 Antonietta Lim Operating Room SpecialistInventory Audit Clerk 09/18/24 documented as of this encounter
--- OUTSIDE RECORDS SUMMARY | 2025-04-05 10:12 | XMS_ITS | Encounter Summary ---
Author Organization [employer] Address 75 [facility] 7t [place] [address] Care Team Providers Care Cab Starter Name Role Phone Aaron Pisano MD Primary Care Provide r Reason for Visit * Reason Comments Med Refill Encounter Details Date Type Department Care Team ([facility] st Contact Info) Description 03/05/2025 Refill [facility] MEDICINE 230 [place] [address] Aaron Pisano MD [address] [place], [place] [phone] Chronic midline low back pain without sciatica [...] EDT Office Visit [facility] MEDICINE [address] [place] [address] Aaron Pisano MD [address] [place] [address] 04/10/2025 10:00 AM EDT Office Visit [facility] ADULT DENTAL [address] [place] [address] Miki Sarkar DDS [address] [place] [address] 04/12/2025 11:00 AM EDT Clinical Support [facility] MEDICINE [address] [place] [address] Altagracia Mancilla RN 505 [place] [address] 08/29/2025 1:00 PM EST Office Visit [facility] ADULT DENTAL [address] [place] [address] Zhanna Hernandez documented as of this encounter [...] documented as of this encounter Care Teams Cab Starter Relationship Specialty Start Date End Date Aaron Pisano MD [address] [place] [address] PCP - General Internal Medicine 05/10/14 Antonietta Lim Chemical Project EngineerPost Tensioning Ironworker 09/18/24 documented as of this encounter
--- OUTSIDE RECORDS SUMMARY | 2025-04-05 10:12 | XMS_ITS | Encounter Summary ---
Author Organization [employer] Address 75 [facility] 7 [place] [address] Care Team Providers Care Radiator Repairer Name Role Phone Aaron Pisano MD Primary Care Provide r Reason for Visit * Reason Onset Date Comments Med Refill 08/24/2022 Encounter Details Date Type Department Care Team ([facility] st Contact Info) Description 08/24/2022 Telephone [facility] MEDICINE [address] [place] [address] Aaron Pisano MD [address] [place] [address] Med Refill Social History Tobacco Use Types [...] Miscellaneous Notes * Telephone Encounter - Jenny Smith - 08/24/2022 12:08 PM EST Tc from pt requesting med refill on medication oxycodone . documented in this encounter Plan of Treatment Upcoming Encounters Date Type Department Care Team (Late st Contact Info) Description 04/09/2025 11:15 AM EDT Office Visit [facility] 230 [place] [address] Aaron Pisano MD [address] [place] [address] 04/10/2025 10:00 AM EDT Office Visit [facility] ADULT DENTAL [address] [place] [address] Miki Sarkar DDS [address] [place] [address] 04/12/2025 11:00 AM EDT Clinical Support [facility] MEDICINE [address] [place] [address] Altagracia Mancilla, GRACIELA 505 [place] [address] 08/29/2025 1:00 PM EST Office Visit [facility] ADULT DENTAL [address] [place] [address] Zhanna Hernandez documented as of this encounter Visit Diagnoses Not on filedocumented in this encounter Care Teams Radiator Repairer Relationship Specialty Start Date End Date Aaron Pisano MD [address] [place] [address] PCP - General Internal Medicine 05/10/14 Antonietta Lim Weigh Box TenderEditor At Large 09/18/24 documented as of this encounter
--- OUTSIDE RECORDS SUMMARY | 2025-04-05 10:12 | XMS_ITS | Encounter Summary ---
Author Organization [employer] Address 75 [facility] 7t [place] [address] Care Team Providers Care Phys Assistant Name Role Phone Aaron Pisano MD Primary Care Provide r Reason for Visit * Reason Onset Date Comments Med Refill 06/01/2023 Encounter Details Date Type Department Care Team (Late st Contact Info) Description 06/01/2023 Refill [facility] MED & PEDS [address] [place], [place] [phone] Sumi Vang, ANP [address] [place] [address] Chronic midline low back pain without sciatica [...] Description 04/09/2025 11:15 AM EDT Office Visit [facility] MEDICINE [address] [place] [address] Aaron Pisano MD [address] [place] [address] 04/10/2025 10:00 AM EDT Office Visit [facility] ADULT DENTAL [address] [place] [address] Miki Sarkar DDS [address] [place] [address] 04/12/2025 11:00 AM EDT Clinical Support [facility] MEDICINE [address] [place] [address] Altagracia Mancilla RN 505 [place] [address] 08/29/2025 1:00 PM EST Office Visit [facility] ADULT DENTAL [address] [place] [address] Zhanna Hernandez documented as of this encounter Goals Goal Patient Goal Type Associated Problems Recent Progress Patient-Stated? Author Blood Pressure < 140/90 Blood Pressure 126/72( 025 3:04 PM EDT) No Giovanna Banks, SohamD documented as of this encounter Visit Diagnoses Diagnosis Chronic midline low back pain without sciatica documented in this encounter Care Teams Phys Assistant Relationship Specialty Start Date End Date Aaron Pisano MD [address] [place] [address] PCP - General Internal Medicine 05/10/14 Antonietta Lim Ingredient Scaler HelperSas Developer Analyst 09/18/24 documented as of this encounter
--- OUTSIDE RECORDS SUMMARY | 2025-04-05 10:12 | XMS_ITS | Encounter Summary ---
Author Organization [employer] Address 75 [facility] 7t [place] [address] Care Team Providers Care Airplane Pilot Chief Name Role Phone Aaron Pisano MD Primary Care Provide r Reason for Visit * Reason Onset Date Comments Med Refill 04/02/2025 Encounter Details Date Type Department Care Team ([facility] st Contact Info) Description 04/02/2025 Refill [facility] [address] [place] [address] Aaron Pisano MD [address] [place] [address] Chronic midline low back pain without sciatica; [...] the past 12 months, has t he [employer], gas, oil or water [employer] threatened to shut off services in your [...] encounter Miscellaneous Notes * Telephone Encounter - Sunil Mcconnell - 04/04/2025 4:12 PM EDT Tc from requesting a call back in regards to pending medication. [employer] Fre[employer] Car Cleaner advised that medication is pending and they are working on them. Contact pt at [phone] documented in this encounter Plan of Treatment Upcoming Encounters Date Type Department Care Team (Late st Contact Info) Description 04/09/2025 11:15 AM EDT Office Visit [facility] [address] [place] [address] Aaron Pisano MD [address] [place] [address] 04/10/2025 10:00 AM EDT Office Visit [facility] ADULT DENTAL [address] [place] [address] Miki Sarkar DDS [address] [place] [address] 04/12/2025 11:00 AM EDT Clinical Support [facility] [address] [place] [address] Altagracia Mancilla, RN [address] [place] [address] 08/29/2025 1:00 PM EST Office Visit [facility] ADULT DENTAL [address] [place] [address] Zhanna Hernandez documented as of this encounter Goals Goal Patient Goal Type Associated Problems Recent Progress Patient-Stated? Author Blood Pressure < 140/90 Blood Pressure 126/72( 025 3:04 PM EDT) Giovanna Edwards, SohamD documented as of this encounter Visit Diagnoses Diagnosis Chronic midline low back pain without sciatica Diarrhea in adult patient documented in this encounter Additional Health Concerns Assessment Noted Time PHQ-9 Depression Total Score: 2 06/05/20 24 8:38 AM EDT documented as of this encounter Care Teams Airplane Pilot Chief Relationship Specialty Start Date End Date Aaron Pisano MD [address] [place] [address] PCP - General Internal Medicine 05/10/14 Antonietta Lim StrapperOccupational Medicine Officer 09/18/24 documented as of this encounter
--- OUTSIDE RECORDS SUMMARY | 2025-04-05 10:12 | XMS_ITS | Encounter Summary ---
Author Organization [employer] Address 75 [facility] 7t [place] [address] Care Team Providers Care Recruiting And Selection Consultant Name Role Phone Aaron Pisano MD Primary Care Provide r Reason for Visit * Reason Onset Date Comments Med Refill 01/04/2025 Encounter Details Date Type Department Care Team ([facility] Contact Info) Description 01/04/2025 Telephone [facility]INE [address] [place] [address] Aaron Pisano MD [address] [place] [address] Med Refill Social History Tobacco Use Types [...] * Telephone Encounter - Deborah Lira - 01/04/2025 2:58 PM EDT TC from pt requesting medication refill. Medications needing refill : oxyCODONE (Roxicodone) 5 MG immediate release tablet To be sent to: [facility] - [place], [place] - [address] [place] [address] documented in this encounter Plan of Treatment Upcoming Encounters Date Type Department Care Team ([facility] st Contact Info) Description 04/09/2025 11:15 AM EDT Office Visit [facility] MEDICINE [address] [place] [address] Aaron Pisano MD [address] [place] [address] 04/10/2025 10:00 AM EDT Office Visit [facility] ADULT DENTAL [address] [place] [address] Miki Sarkar DDS [address] [place] [address] 04/12/2025 11:00 AM EDT Clinical Support [facility] MEDICINE [address] [place] [address] Altagracia Mancilla, RN 505 [place] [address] 08/29/2025 1:00 PM EST Office Visit [facility] ADULT DENTAL [address] [place] [address] Zhanna Hernandez documented as of this encounter [...] documented as of this encounter Care Teams Recruiting And Selection Consultant Relationship Specialty Start Date End Date Aaron Pisano MD [address] [place] [address] PCP - General Internal Medicine 05/10/14 Antonietta Lim Packer [employer] Car[employer] OutWell Service Floor Worker 09/18/24 documented as of this encounter
--- OUTSIDE RECORDS SUMMARY | 2025-04-05 10:12 | XMS_ITS | Encounter Summary ---
Author Organization [employer] Address [address] [place] [address] 7 [place] [address] Care Team Providers Care Director Of Physical Security Name Role Phone Aaron Pisano MD Primary Care Provide r Encounter Details Date Type Department Care Team (Latest Contact Info) Description 11/10/2020 Abstract [facility] CONVERSIONS Dental, Provider, DDS Social History [...] 11:15 AM EDT Office Visit [facility] MEDICINE [address] [place] [address] Aaron Pisano MD [address] [place] [address] 04/10/2025 10:00 AM EDT Office Visit [facility] ADULT DENTAL [address] [place] [address] Miki Sarkar DDS [address] [place] [address] 04/12/2025 11:00 AM EDT Clinical Support [facility] MEDICINE [address] [place] [address] Altagracia Mancilla RN [address] [place] [address] 08/29/2025 1:00 PM EST Office Visit [facility] ADULT DENTAL [address] [place] [address] Zhanna Hernandez documented as of this encounter Visit Diagnoses Not on filedocumented in this encounter Care Teams Director Of Physical Security Relationship Specialty Start Date End Date Aaron Pisano MD [address] [place] [address] PCP - General Internal Medicine 05/10/14 Antonietta Lim Outbound Telemarketing RepresentativeCustomer Support Advisor 09/18/24 documented as of this encounter
--- OUTSIDE RECORDS SUMMARY | 2025-04-05 10:12 | XMS_ITS | Encounter Summary ---
Author Organization [employer] Address 75 [facility] 7t [place] [address] Care Team Providers Care Spinning And Winding Supervisor Name Role Phone Aaron Pisano MD Primary Care Provide r Reason for Visit * Reason Onset Date Comments Med Refill 11/16/2022 Encounter Details Date Type Department Care Team ([facility] st Contact Info) Description 11/16/2022 Telephone [facility] MEDICINE [address] [place] [address] Aaron Pisano MD [address] [place] [address] Med Refill Social History Tobacco Use Types [...] Miscellaneous Notes * Telephone Encounter - Natasha Rodriguez Cristobal - 11/16/2022 1:31 PM EDT Tc from pt requesting for script of oxyCODONE (Roxicodone) 5 MG immediate release tablet Please sent to [facility] - [place], [place] - [address] [place] [address] documented in this encounter Plan of Treatment Upcoming Encounters Date Type Department Care Team (Late st Contact Info) Description 04/09/2025 11:15 AM EDT Office Visit [facility] MEDICINE 230 [place] [address] Aaron Pisano MD [address] [place] [address] 04/10/2025 10:00 AM EDT Office Visit [facility] ADULT DENTAL [address] [place] [address] Miki Sarkar DDS [address] [place] [address] 04/12/2025 11:00 AM EDT Clinical Support [facility] MEDICINE 230 [place] [address] Altagracia Mancilla, GRACIELA [address] [place] [address] 08/29/2025 1:00 PM EST Office Visit [facility] ADULT DENTAL [address] [place] [address] Zhanna Hernandez documented as of this encounter Visit Diagnoses Not on filedocumented in this encounter Care Teams Spinning And Winding Supervisor Relationship Specialty Start Date End Date Aaron Pisano MD [address] [place] [address] PCP - General Internal Medicine 05/10/14 Antonietta Lim Communications Tower ClimberElectronic Typesetting Machine Operator 09/18/24 documented as of this encounter
--- OUTSIDE RECORDS SUMMARY | 2025-04-05 10:12 | XMS_ITS | Encounter Summary ---
Author Organization [employer] Address 75 [facility] 7t [place] [address] Care Team Providers Care Machine Binding Folder Name Role Phone Aaron Pisano MD Primary Care Provide r Reason for Visit * Reason Onset Date Comments Med Refill 03/05/2025 Encounter Details Date Type Department Care Team ([facility] st Contact Info) Description 03/05/2025 Refill [facility] MEDICINE [address] [place] [address] Aaron Pisano MD [address] [place] [address] Chronic midline low back pain without sciatica [...] Visit [facility] MEDICINE [address] [place] [address] Aaron Pisano MD [address] [place] [address] 04/10/2025 10:00 AM EDT Office Visit [facility] ADULT DENTAL [address] [place] [address] Miki Sarkar DDS [address] [place] [address] 04/12/2025 11:00 AM EDT Clinical Support [facility] MEDICINE [address] [place] [address] Altagracia Mancilla RN 505 [place] [address] 08/29/2025 1:00 PM EST Office Visit [facility] ADULT DENTAL [address] [place] [address] Zhanna Hernandez documented as of this encounter Goals Goal Patient Goal Type Associated Problems Recent Progress Patient-Stated? Author Blood Pressure < 140/90 Blood Pressure 126/72( 025 3:04 PM EDT) No Giovanna Banks PharmD documented as of this encounter Visit Diagnoses Diagnosis Chronic midline low back pain without sciatica documented in this encounter Additional Health Concerns Assessment Noted Time PHQ-9 Depression Total Score: 2 06/05/20 24 8:38 AM EDT documented as of this encounter Care Teams Machine Binding Folder Relationship Specialty Start Date End Date Aaron Pisano MD [address] [place] [address] PCP - General Internal Medicine 05/10/14 Antonietta Lim Job Service ConsultantShip Engineer 09/18/24 documented as of this encounter
--- OUTSIDE RECORDS SUMMARY | 2025-04-05 10:12 | XMS_ITS | Encounter Summary ---
Author Organization [employer] Address 75 [facility] 7t [place] [address] Care Team Providers Care Bed Teacher Name Role Phone Aaron Pisano MD Primary Care Provide r Reason for Visit * Reason Comments Med Refill Encounter Details Date Type Department Care Team ([facility] st Contact Info) Description 05/07/2024 Refill [facility] MEDICINE [address] [place] [address] Aaron Pisano MD [address] [place], [place] [phone] Chronic midline low back pain without sciatica [...] 11:15 AM EDT Office Visit [facility] MEDICINE [address] [place] [address] Aaron Pisano MD [address] [place] [address] 04/10/2025 10:00 AM EDT Office Visit [facility] ADULT DENTAL [address] [place] [address] Miki Sarkar DDS [address] [place] [address] 04/12/2025 11:00 AM EDT Clinical Support [facility] MEDICINE [address] [place] [address] Altagracia Mancilla RN 505 [place] [address] 08/29/2025 1:00 PM EST Office Visit [facility] ADULT DENTAL [address] [place] [address] Zhanna Hernandez documented as of this encounter [...] documented as of this encounter Care Teams Bed Teacher Relationship Specialty Start Date End Date Aaron Pisano MD [address] [place] [address] PCP - General Internal Medicine 05/10/14 Antonietta Lim Corporate AuditorOperations Tech 09/18/24 documented as of this encounter
--- OUTSIDE RECORDS SUMMARY | 2025-04-05 10:12 | XMS_ITS | Encounter Summary ---
Author Organization [employer] Address 75 [facility] 7t [place] [address] Care Team Providers Care Observer Helper Name Role Phone Aaron Pisano MD Primary Care Provide r Reason for Visit * Reason Comments Med Refill Encounter Details Date Type Department Care Team ([facility] st Contact Info) Description 10/06/2023 Refill [facility] MEDICINE [address] [place] [address] Aaron Pisano MD [address] [place], [place] [phone] Chronic midline low back pain without sciatica [...] 04/09/2025 11:15 AM EDT Office Visit [facility] MEDICINE [address] [place] [address] Aaron Pisano MD [address] [place] [address] 04/10/2025 10:00 AM EDT Office Visit [facility] ADULT DENTAL [address] [place] [address] Miki Sarkar DDS [address] [place] [address] 04/12/2025 11:00 AM EDT Clinical Support [facility] MEDICINE [address] [place] [address] Altagracia Mancilla RN 505 [place] [address] 08/29/2025 1:00 PM EST Office Visit [facility] ADULT DENTAL [address] [place] [address] Zhanna Hernandez documented as of this encounter [...] documented as of this encounter Care Teams Observer Helper Relationship Specialty Start Date End Date Aaron Pisano MD [address] [place] [address] PCP - General Internal Medicine 05/10/14 Antonietta Lim Regional Office CoordinatorCasket Assembler Metal 09/18/24 documented as of this encounter
--- OUTSIDE RECORDS SUMMARY | 2025-04-05 10:12 | XMS_ITS | Encounter Summary ---
Author Organization [employer] Address [address] [facility] [address] 7t [place] [address] Care Team Providers Care Master Ocean Yacht Name Role Phone Aaron Pisano MD Primary Care Provide r Encounter Details Date Type Department Care Team (Latest Contact Info) Description 04/03/2025 Travel Social History Tobacco Use Types Packs/Day [...] 11:15 AM EDT Office Visit [facility] MEDICINE [address] [place] [address] Aaron Pisano MD [address] [place] [address] 04/10/2025 10:00 AM EDT Office Visit [facility] ADULT DENTAL [address] [place] [address] Miki Sarkar DDS [address] [place] [address] 04/12/2025 11:00 AM EDT Clinical Support [facility] MEDICINE [address] [place] [address] Altagracia Mancilla, GRACIELA [address] [place] [address] 08/29/2025 1:00 PM EST Office Visit [facility] ADULT DENTAL [address] [place] [address] Zhanna Hernandez documented as of this encounter [...] documented as of this encounter Care Teams Master Ocean Yacht Relationship Specialty Start Date End Date Aaron Pisano MD [address] [place] [address] PCP - General Internal Medicine 05/10/14 Antonietta Lim Park Activities CoordinatorHousehold Appliance Installer 09/18/24 documented as of this encounter
--- OUTSIDE RECORDS SUMMARY | 2025-04-05 10:12 | XMS_ITS | Encounter Summary ---
Author Organization [employer] Address 75 [facility] 7t [place] [address] Care Team Providers Care Sustainable Development Policy Analyst Name Role Phone Aaron Pisano MD Primary Care Provide r Reason for Visit * Reason Onset Date Comments Med Refill 08/12/2024 Encounter Details Date Type Department Care Team ([facility] st Contact Info) Description 08/12/2024 Refill [facility] MED[facility]INE [address] [place] [address] Aaron Pisano MD [address] [place] [address] Smoker Social History Tobacco Use Types Packs/Day [...] Office Visit [facility] MEDICINE [address] [place] [address] Aaron Pisano MD [address] [place] [address] 04/10/2025 10:00 AM EDT Office Visit [facility] ADULT DENTAL [address] [place] [address] Miki Sarkar DDS [address] [place] [address] 04/12/2025 11:00 AM EDT Clinical Support [facility] MED[facility]INE [address] [place] [address] Altagracia Mancilla RN [address] [place] [address] 08/29/2025 1:00 PM EST Office Visit [facility] ADULT DENTAL [address] [place] [address] Zhanna Hernandez documented as of this encounter [...] documented as of this encounter Care Teams Sustainable Development Policy Analyst Relationship Specialty Start Date End Date Aaron Pisano MD [address] [place] [address] PCP - General Internal Medicine 05/10/14 Antonietta Lim All Purpose ClerkPerl Software Engineer 09/18/24 documented as of this encounter
--- OUTSIDE RECORDS SUMMARY | 2025-04-05 10:13 | XMS_ITS | Encounter Summary ---
Author Organization [employer] Address 75 [facility] 7 [place] [address] Care Team Providers Care Mechanical Drawing Teacher Name Role Phone Aaron Pisano MD Primary Care Provide r Reason for Visit * Reason Onset Date Comments Med Refill 02/05/2025 Encounter Details Date Type Department Care Team ([facility] st Contact Info) Description 02/05/2025 Refill [facility] MED [facility] PEDS [address] [place] [address] Fam Hartman MD 505 [place] [address] Chronic midline low back pain without sciatica [...] Description 04/09/2025 11:15 AM EDT Office Visit [facility] MEDICINE [address] [place] [address] Aaron Pisano MD [address] [place] [address] 04/10/2025 10:00 AM EDT Office Visit [facility] ADULT DENTAL [address] [place] [address] Miki Sarkar DDS [address] [place] [address] 04/12/2025 11:00 AM EDT Clinical Support [facility] MEDICINE [address] [place] [address] Altagracia Mancilla, GRACIELA 505 [place] [address] 08/29/2025 1:00 PM EST Office Visit [facility] ADULT DENTAL [address] [place] [address] Zhanna Hernandez documented as of this encounter [...] documented as of this encounter Care Teams Mechanical Drawing Teacher Relationship Specialty Start Date End Date Aaron Pisano MD [address] [place] [address] PCP - General Internal Medicine 05/10/14 Antonietta Lim Cork Insulation SetterThread Trimmer 09/18/24 documented as of this encounter
--- OUTSIDE RECORDS SUMMARY | 2025-04-05 10:13 | XMS_ITS | Clinical Summary ---
Author Organization [employer] Address [address] [facility] [address] [place] [address] Care Team Providers Care Bat Boy/Girl Name Role Phone Aaron Pisano MD Primary [...] OR SHORTNESS OF BREATH 02/15/20 24 Active nicotine polacrilex (Nicorette) 4 MG gumIndication s:Nicotine withdrawal CHEW 1 PIECE IN MOUTH EVERY 2 HOURS NEEDED 110 each 08/13/19 25 Active Acetaminophen Extra Strength 500 MG tablet TAKE 1 TABLET BY MOUTH EVERY 6 HOURS NEEDED FOR MILD PAIN 60 tablet 08/13/19 25 Active azithromycin (Zithromax Z-Silvano) 250 MG tabletIndicat ions:Breast cyst, right Take 2 tabs po x 1 day then 1 tab po daily x 4 days 6 tablet 09/06/19 25 Active ondansetron (Zofran) 4 MG tablet TAKE 1 TABLET BY MOUTH EVERY 8 HOURS NEEDED FOR NAUSEA AND VOMITING FOR UP TO 7 DAYS 20 tablet 09/11/19 25 Active losartan (Cozaar) 25 MG tablet TAKE 1 TABLET BY MOUTH EVERY MORNING 90 tablet 1 09/20/19 25 Active loperamide (Anti-Diarrhe al) 2 MG tabletIndicat ions:Diarrhea in adult patient TAKE 2 TABLETS BY MOUTH TODAY THEN TAKE 1 TABLET AFTER EACH WATERY STOOL. NO MORE THAN 8 TABLETS PER 24 HOURS 7 tablet 10/10/19 25 Active cholecalcifer ol (D3 Super Strength) 50 MCG (2000 UT) capsuleIndica tions:Seasona l allergies TAKE 1 CAPSULE BY MOUTH EVERY MORNING 90 capsule 1 10/24/19 25 Active esomeprazole (NexIUM) [address] capsuleIndica tions:Cough in adult patient TAKE 1 CAPSULE BY MOUTH TWICE DAILY IN THE MORNING AND IN THE EVENING 60 capsule 2 11/21/19 25 Active polyvinyl alcohol (Liquifilm Tears) 1.4 % ophthalmic solutionIndic ations:Episcl eritis, left Administer 1 drop into both eyes if needed for dry eyes. 15 mL 1 12/01/19 25 Active cetirizine (ZyrTEC) 10 MG tabletIndicat ions:Seasonal allergies TAKE 1 TABLET BY MOUTH EVERY MORNING 90 tablet 1 12/26/19 25 Active fluticasone (Flonase) 50 MCG/ACT nasal sprayIndicati ons:Seasonal allergies INHALE 1 SPRAY IN EACH NOSTRIL TWICE DAILY 48 g 1 01/19/20 25 Active furosemide (Lasix) 40 MG tabletIndicat ions:Primary hypertension, Vasculitis (CMS/HCC) TAKE 1 TABLET BY MOUTH EVERY MORNING 90 tablet 1 02/13/20 25 Active diphenhydrAMI NE (Laureen-Dryl) 25 MG tabletIndicat ions:Intracta ble vomiting with nausea TAKE 1 TABLET BY MOUTH THREE TIMES DAILY BEFORE MEALS NEEDED FOR NAUSEA AND VOMITING 90 tablet 1 02/23/20 25 Active baclofen (Lioresal) 10 MG tabletIndicat ions:Chronic bilateral low back pain without sciatica TAKE 1 TABLET BY MOUTH TWICE DAILY IN THE MORNING AND AT BEDTIME NEEDED FOR MUSCLE SPASMS 60 tablet 1 02/23/20 25 Active oxyCODONE (Roxicodone) 5 MG immediate release tabletIndicat ions:Chronic midline low back pain without sciatica Take 1 tablet (5 mg) by mouth every 12 (twelve) hours if needed for severe pain. 56 tablet 03/05/20 25 Active valACYclovir (Valtrex) 1 g tablet TAKE 1 TABLET BY MOUTH EVERY MORNING 28 tablet 5 03/11/20 25 Active acetaminophen (Tylenol 8 Hour) 650 MG ER tablet Take 1 tablet (650 mg) by mouth every 8 (eight) hours if needed for mild pain. Do not crush, chew, or split. 30 tablet 03/13/20 25 Active chlorhexidine (Peridex) 0.12 % solution Swish 15 mL morning and night for 1 minute. Spit, do not swallow. Do not eat or drink for 30 minutes following use. 473 mL 03/13/20 25 Active varenicline (Chantix) 0.5 MG tabletIndicat ions:Smoker TAKE 1 TABLET BY MOUTH TWICE DAILY FOR 7 DAYS THEN 2 TABLETS (1MG) TWICE DAILY. TAKE WITH GLASS OF WATER 14 tablet 04/01/20 25 Active varenicline (Chantix) 1 MG tabletIndicat ions:Smoker TAKE 1 TABLET BY MOUTH EVERY DAY. TAKE WITH FULL GLASS OF WATER 30 tablet 3 08/13/19 25 025 Discontinued(D ose adjustment) valACYclovir (Valtrex) 1 g tablet TAKE 1 TABLET BY MOUTH EVERY MORNING 28 tablet 5 09/11/19 25 025 Discontinued Active Problems Problem Noted Date Diagnosed Date Open fracture of tooth 03/13/2025 Bruxism, sleep-related 03/13/2025 Excessive attrition of teeth, limited to enamel 02/11/2025 Long-term current use of opiate analgesic 2024 Breast cyst, right 09/06/2024 Assessment & Plan (09/06/2024 3:02 PM EST): Noticed it a few days back, drained on its own, on today's exam seems its healing Pt with multiple Abx allergies. Will prescribe a Z-pack Abrasion of teeth, localized 08/21/2024 Diarrhea 06/05/2024 Assessment & Plan (06/05/2024 [...] PM EDT): Refills of her medications given Obesity (BMI 30-39.9) 03/22/2023 Primary osteoarthritis of [...] stockings Primary hypertension 08/03/2022 Assessment & Plan (12/25/2024 12:51 PM EDT): Televisit Pt reports checking her BP at home Ranging between 130-142 systolic BP controlled on a regimen of: Losartan 50 mg po daily Given adequate blood pressure control will continue with current medical regimen. Most recent electrolytes, Bun and Creatinine done on: Lab Results Component Value Date NA 141 08/27/2024 NA 140 05/04/2024 K 3.8 08/27/2024 K 3.3 05/04/2024 CL 104 08/27/2024 CL 106 05/04/2024 BUN 15 08/27/2024 BUN 18 (H) 05/04/2024 CREATININE 0.80 08/27/2024 CREATININE 1.13 05/04/2024 were within normal limits. patient advised to adhere to a low sodium diet, encouraged about medication compliance, counseled about weight loss. Assessment & Plan (01/05/2024 3:00 PM EDT): [...] Prednisone. She is under the care of [employer] Dr Newberry. She is on Prednisone 2 [...] currently depressed, moderate 10/19/2018 Assessment & Plan (12/25/2024 12:55 PM EDT): Televisit Pt reports she continues under the care of a psychotherapist and a psychiatrist Dr. Gregory. At [facility] Pt is on: Hydroxyzine, Ambien, Assessment & Plan (08/23/2023 2:06 PM EST): Pt under the care of a psychotherapist and a psychiatrist. At [facility] Pt is no longer on Abilify nor Clonidine. She is now on Geodon Assessment & Plan (08/03/2022 9:22 AM EST): Pt under the care of a psychotherapist and a psychiatrist. At [facility] started on Abilify 7.5 mg po [...] recently seen by Dr Rodas at [facility] 06/15/2024 who recommended PRN follow up Assessment [...] is now under the care of Dr Rohith pollock 07/29/2017 Mild intermittent asthma 05/13/2015 Assessment & Plan (09/06/2024 2:43 PM EST): No recent exacerbations. Under the care of Pulmonology Dr Pearson last seen 05/2024 On a regimen of Advair She is supposed to follow up with him Pt no longer using Pro-Air MDI.. She tells me she has a reaction to it Assessment & Plan (08/03/2022 9:19 AM EST): No recent exacerbations. Under the care of Pulmonology Dr Pearson last seen 04/18/2018 On a regimen of [...] 1:51 PM EST): Previously referred to [facility] Comprehensive weight management program. Seen twice, they prompter to discuss with her mental health provider her eating habits before they would consider accepting her into the program Assessment & Plan (12/30/2022 3:28 PM EDT): Previously referred to [facility] Comprehensive weight management program Assessment & Plan (08/03/2022 1:48 PM EST): Referred to [facility] Comprehensive weight management program Genital herpes simplex [...] EST): Seen in the past by an Shirt Sewer (Dr. Dozier) Under the care of Clare Carlin The last US on record done at [facility] 01/2019 showed a hypoechoic well circumscribed solid structure in the region of the posterior vaginal cuff 1 x 1.4 x 1.3 cm unchanged in size and appearance since a prior study 10/02/2015 radiologist emntions that stability over a 3 yr period indicates benignity Resolved Problems Problem Noted Date Diagnosed Date Resolved Date Chest pain 03/22/2023 12/25/2024 History of hysterectomy for benign disease 06/21/2012 08/03/2022 Encounters Date Type Department Care Team Description 04/04/2025 Refill [facility] [address] [place] [address] Aaron Pisano MD Chronic midline low back pain without sciatica 04/03/2025 Travel 04/03/2025 Telephone [facility] [address] [place] [address] Aaron Pisano MD Med Refill 04/02/2025 Refill [facility] [address], [place] [phone] Aaron Pisano MD 04/02/2025 Refill [facility] [address] [place] [address] Aaron Pisano MD Diarrhea in adult patient 04/02/2025 Refill [facility] [address] [place] [address] Aaron Pisano MD Chronic midline low back pain without sciatica; Diarrhea in adult patient 04/02/2025 Travel 03/29/2025 Refill [facility] [address] [place] [address] Aaron Pisano MD Smoker 03/13/2025 3:00 PM EDT Office Visit [facility] ADULT DENTAL [address] [address] Miki Sarkar DDS Open fracture of tooth, initial encounter (Primary Dx); Abrasion of teeth, localized; Bruxism, sleep-related 03/12/2025 Travel 03/08/2025 Refill [facility] [address] [place] [address] Aaron Pisano MD 03/05/2025 Refill [facility] [address] [place] [address] Aaron Pisano MD Chronic midline low back pain without sciatica 03/05/2025 Refill [facility] [address] [place] [address] Aaron Pisano MD Chronic midline low back pain without sciatica 03/05/2025 Refill [facility] [address] [place] [address] Aaron Pisano MD Chronic midline low back pain without sciatica 02/22/2025 Refill [facility] [address], [place] [address] Aaron Pisano MD Intractable vomiting with nausea; Chronic bilateral low back pain without sciatica 02/11/2025 9:00 AM EDT Office Visit [facility] [address] [place] [address] Rachel Gómez Excessive attrition of teeth, limited to enamel (Primary Dx) 02/11/2025 Refill [facility] [address] [place] [address] Aaron Pisano MD Primary hypertension; Vasculitis (CMS/HCC) 02/05/2025 Refill [facility] [address] [place] [address] Aaron Pisano MD Chronic midline low back pain without sciatica 02/05/2025 Refill [facility] [address] [place] [address] Fam Hartman MD Chronic midline low back pain without sciatica 02/02/2025 Orders Only [facility] External Provider, [facility] 01/18/2025 Refill [facility] [address] [place] [address] Aaron Pisano MD Seasonal allergies 01/14/2025 11:00 AM EDT Telemedicine [facility] [address] [place] [address] Altagracia Mancilla RN Chronic bilateral low back pain without sciatica 01/14/2025 Travel 01/12/2025 12:20 PM EDT Office Visit [facility] [address] [place] [address] Bjorn Tillman MD Neck pain (Primary Dx); Upper back pain 01/12/2025 Telephone [facility] [address] [place] [address] Bjorn Tillman MD 01/12/2025 Travel 01/11/2025 Telephone [facility] [address] [place] [address] Aaron Pisano MD Nurse Triage 01/08/2025 Telephone [facility] [address] [place] [address] Aaron Pisano MD Chart Prep 01/08/2025 Telephone [facility] [address] [place] [address] Aaron Pisano MD ER Follow-up 01/07/2025 Refill [facility] [address] [place] [address] Fam Hartman MD Chronic midline low back pain without sciatica 01/07/2025 Patient Outreach [facility] [address] [place] [address] Aaron Pisano MD Care Coordination ([facility] outreach for SDOH PT-1 and food needs-referral completed /) 01/07/2025 Telephone [facility] [address] [place] [address] Aaron Pisano MD pt1 01/07/2025 Travel 01/04/2025 Telephone [facility] [address] [place] [address] Aaron Pisano MD Med Refill 01/04/2025 Refill [facility] [address] [place] [address] Fam Hartman MD Chronic midline low back pain without sciatica 01/04/2025 Refill [facility] [address] [place] [address] Fam Hartman MD Chronic midline low back pain without sciatica from Last 3 Months Immunizations Immunization Administration Dates Next Due Hep A / [...] Sign Reading Time Taken Comments Blood Pressure 126/72 03/13/2025 3:04 PM EDT Pulse 66 03/13/2025 3:04 PM EDT Temperature 36.8 C (98.2 F) 01/12/2025 12:12 PM EDT Respiratory Rate 18 01/12/2025 12:12 PM EDT Oxygen Saturation 97% 01/12/2025 12:12 PM EDT Inhaled Oxygen Concentration - - Weight 96.3 kg (212 lb 6.4 oz) 01/12/2025 12:12 PM EDT Height 149.9 cm (4' 11 ) 09/06/2024 2:32 PM EST Body Mass Index 42.9 09/06/2024 2:32 PM EST Plan of Treatment Upcoming Encounters Date Type Department Care Team (Late st Contact Info) Description 04/09/2025 11:15 AM EDT Office Visit [facility] [address] [place] [phone] Aaron Pisano MD [address] [place] [phone] 04/10/2025 10:00 AM EDT Office Visit [facility] ADULT DENTAL [address] [place] [phone] Miki Sarkar DDS [address] [place] [phone] 04/12/2025 11:00 AM EDT Clinical Support [facility] [address] [place] [phone] Altagracia Mancilla, RN [address] [place] [address] 08/29/2025 1:00 PM EST Office Visit [facility] [address] [place] [phone] Zhanna Hernandez Health Maintenance Due Date Last Done Comments CT Colonography 1977 Colonoscopy 1977 Colorectal Cancer Screening 1977 FIT DNA/Cologuard 1977 FIT 1977 FOBT 1977 Sigmoidoscopy 1977 Family Planning (PISQ) 1992 Pap Smear 1998 Cervical Cancer Screening 2007 HPV/Cotest 2007 COVID-19 Vaccine ( season) 2024 11/15/2020 Dental X-Ray: Bitewings 01/24/2025 01/24/2024, 11/30 Influenza Vaccine (#1) 2025 Alcohol/Substance Use Screening 06/05/2025 06/05/2024 Depression Screening 06/05/2025 06/05/2024, 06/05/20 24 Dental Oral Exam 08/15/2025 02/11/2025, , 01/24/2024, Additional history exists Dental Prophylaxis 08/15/2025 02/11/2025, 1 09/26/2023, 01/24/2024, Additional history exists SDOH Screening 08/24/2025 08/24/2024 Dental X-Ray: Full Mouth 12/01/2025 11/30/2022 Disability Screening 01/07/2026 01/07/2025 Mammogram 02/20/2026 02/20/2025, 02/05, 01/26/2024, Additional history exists Tobacco Screening 03/13/2026 03/13/2025 Zoster Vaccines (1 of 2) 2027 Lipid Panel 12/28/2029 12/28/2024, 04/30/2024 DTaP/Tdap/Td Vaccines (3 - Td or Tdap) 02/03/2031 02/03/2021, 07/29/2010, 03/16/1982 RSV Patients and Patients Aged 60 years or older (1 - 1-dose 75+ series) 2052 Hepatitis A Vaccines Aged Out 10/12/2010, 07/29/2010, 04/14/2010 No longer eligible based on patient's age to complete this topic Hepatitis B Vaccines Completed 10/12/2010, 07/29/2010, 07/29/2010, Additional history exists HIV Screening Completed 02/26/2020, 02/22/2020 Pneumococcal Vaccine: Pediatrics (0 to 5 Years) and At-Risk Patients (6 to 49) Years Completed 03/14/2023 Hepatitis C Screening Completed 12/28/2024 , 03/06/2021, 02/26/2020, Additional history exists HIB Vaccines Aged Out No longer eligi ble based on patient's age to complete this topic HPV Vaccines Aged Out No longer eligi ble based on patient's age to complete this topic IPV Vaccines Aged Out No longer eligi ble based on patient's age to complete this topic Meningococcal B Vaccine Aged Out No l onger eligible based on patient's age to complete [...] 3:04 PM EDT) No Giovanna Banks PharmD Procedures Procedure Name Priority Date/Time Associated Diagnosis Comments CASE PRESENTATION, DETAILED AND EXTENSIVE TREATMENT PLANNING Routine 03/13/2025 3:00 PM EDT INTRAORAL - PERIAPICAL FIRST RADIOGRAPHIC IMAGE Routine 03/13/2025 3:00 PM EDT LIMITED ORAL EVALUATION - PROBLEM FOCUSED Routine 03/13/2025 3:00 PM EDT BI MAMMOGRAM SCREENING TOMOSYNTHESIS BILATERAL Routine 02/20/2025 2:30 PM EDT PERIODIC ORAL EVALUATION - ESTABLISHED PATIENT Routine 02/11/2025 9:00 AM EDT CASE PRESENTATION, DETAILED AND EXTENSIVE TREATMENT PLANNING Routine 02/11/2025 9:00 AM EDT PROPHYLAXIS - ADULT Routine 02/11/2025 9 :[address] CHEST WO CON - HIGH RES Routine 02/04/2025 7:46 PM EDT HEPATITIS PANEL, GENERAL Routine 12/28/2024 2:24 PM EDT LIPID PANEL, STANDARD Routine 12/28/2024 2:24 PM EDT Primary hypertension BITEWINGS - 4 RADIOGRAPHIC IMAGES Routine 01/24/2024 2:00 PM EDT INTRAORAL - COMPLETE SERIES OF RADIOGRAPHIC IMAGES Routine 11/30/2022 1:00 PM EDT Dental calculus ZZZ HISTORICAL HIV AB/AG Routine 02/26/2020 1:03 PM EDT from Last 3 Months or Most Recently Relevant to Health Maintenance Results * BI Mammogram Screening Tomosynthesis Bilateral (02/20/2025 2:30 PM EDT) Anatomical Region Laterality Modality Breast Bilateral Mammography 02/20/2025 2:30 PM EDT Narrative 03/01/2025 8:13 PM EDT [facility] [address] [place] [address] Mammography Report Signed Patient: Zee Villanueva MR#: [id number] : 1975 Acct:[id number] Age/Sex: 49 / F ADM Date: 02/20/25 Loc: HO.MAMMO Attending Dr: Aaron Carcamo MD Ordering Physician: Aaron Carcamo MD Resu lts: 1Negative Date of Service: 02/20/25 Follow Up: 1 Year From Orig ina Mammogram Procedure(s): MM tomosynthesis screening BI Accession Number(s): [id number] cc: Aaron Carcamo MD EXAMINATION: MM SCREENING DIGITAL BREAST TOMOSYNTHESIS, BILATERAL CLINICAL INFORMATION: Screening. Asymptomatic. COMPARISON: Comparison made to multiple prior, most recent January 26, 2024, and most remote September 21, 2019. TECHNIQUE: Digital breast tomosynthesis is performed in both the craniocaudal and mediolateral oblique views along with computer-aided detection (CAD). Synthesized 2D images are generated from the tomosynthesis. FINDINGS: BREAST COMPOSITION: There are scattered areas of fibroglandular density (ACR BI-RADS breast composition Category b). BILATERAL BREASTS: No significant masses, suspicious calcifications or other abnormalities are seen in either breast. MM/MM tomosynthesis screening BI IMPRESSION: BILATERAL BREASTS: Negative, no mammographic evidence of malignancy. Normal interval follow-up is recommended in 12 months. ASSESSMENT: BI-RADS 1 - Negative RECOMMENDATION: Routine annual mammography screening. FOLLOW-UP: 1 year F/U This examination should not preclude the clinical evaluation of a suspicious palpable abnormality. This patient's information was entered into a reminder system with a target due date for their next mammogram. Electronically signed by: Shari Modi MD 03/01/2025 08:10 PM EDT Dictated By: Shari Modi MD Signed By: <Electronically signed by Shari Modi MD in OV> 03/01/252009 DD/ 1430 TD/TT: 02/20/25 1510 Critical Care Registered Nurse: Procedure Note Donotuseinterpreter, Image - [facility] [address] [place] [address] Mammography Report Signed Patient: Zee Villanueva AMR#: [id number] : 1975Acct:[id number] Age/Sex: 49 / FADM Date: 02/20/25 Loc: HO.MAMMO Attending Dr: Aaron Carcamo MD Ordering Physician: Aaron Carcamo MDResu lts: 1Negative Date of Service: 02/20/25Follow Up: 1 Year From Orig ina Mammogram Procedure(s): MM tomosynthesis screening BI Accession Number(s): [id number] cc: Aaron Carcamo MD EXAMINATION: MM SCREENING DIGITAL BREAST TOMOSYNTHESIS, BILATERAL CLINICAL INFORMATION: Screening. Asymptomatic. COMPARISON: Comparison made to multiple prior, most recent January 26, 2024, and most remote September 21, 2019. TECHNIQUE: Digital breast tomosynthesis is performed in both the craniocaudal and mediolateral oblique views along with computer-aided detection (CAD). Synthesized 2D images are generated from the tomosynthesis. FINDINGS: BREAST COMPOSITION: There are scattered areas of fibroglandular density (ACR BI-RADS breast composition Category b). BILATERAL BREASTS: No significant masses, suspicious calcifications or other abnormalities are seen in either breast. MM/MM tomosynthesis screening BI IMPRESSION: BILATERAL BREASTS: Negative, no mammographic evidence of malignancy. Normal interval follow-up is recommended in 12 months. ASSESSMENT: BI-RADS 1 - Negative RECOMMENDATION: Routine annual mammography screening. FOLLOW-UP: 1 year F/U This examination should not preclude the clinical evaluation of a suspicious palpable abnormality. This patient's information was entered into a reminder system with a target due date for their next mammogram. Electronically signed by: Shari Modi MD 03/01/2025 08:10 PM EDT Dictated By: Shari Modi MD Signed By: <Electronically signed by Shari Modi MD in OV> 03/01/252009 DD/ 1430 TD/TT: 02/20/25 1510 Critical Care Registered Nurse: Aaron Harris MD IMG BI PROCEDURES Satya lauren Result - Final * CT chest wo con - High Res (02/04/2025 7:46 PM EDT) Anatomical Region Laterality Modality Body, Chest Computed Tomogra phy 02/04/2025 7:46 PM EDT Narrative 02/04/2025 7:47 PM EDT [address] [address] [address] Scan Report Signed Patient: Zee Villanueva MR#: [id number] : 1975 Acct:[id number] Age/Sex: 49 / F ADM Date: 02/02/25 Loc: HO.CT Attending Dr: Khushi Alfaro MD Ordering Physician: Khushi Alfaro MD Date of Service: 02/02/25 Procedure(s): CT chest wo con - High Res Accession Number(s): [id number] cc: Khushi Alfaro MD; CAS PEARSON; Aaron Carcamo MD Report Number: [id number]: Total DLP = 557.00 mGy-cm CLINICAL HISTORY: M31.0 - Hypersensitivity angiitis CT chest without contrast Comparison: CR/SR - XR CHEST 2V - 04/23/24 16:16 EDT Findings: The heart is normal size. Mitral annular calcification. The visualized thyroid and mediastinum are unremarkable. The lungs are clear. No consolidation or any evidence of inflammation in the lungs. No pleural effusion or pneumothorax. Cholecystectomy. No acute findings in the visualized upper abdomen. No acute fractures. IMPRESSION: 1. No acute thoracic findings. This document has been electronically signed by: Celena Lassiter MD on 02/04/2025 19:46:09 Dictated By: Celena Lassiter MD Signed By: <Electronically signed by Celena Lassiter MD in OV> 02/04/251946 DD/ 45 TD/TT: 02/04/251945 Critical Care Registered Nurse: Procedure Note Donotuseinterpreter, Image - 02/04/[address] [address] [address] Scan Report Signed Patient: Zee Villanueva AMR#: [id number] : 1975Acct:[id number] Age/Sex: 49 / FADM Date: 02/02/25 Loc: HO.CT Attending Dr: Khushi Alfaro MD Ordering Physician: Khushi Alfaro MD Date of Service: 02/02/25 Procedure(s): CT chest wo con - High Res Accession Number(s): [id number] cc: Khushi Alfaro MD; CAS PEARSON; Aaron Carcamo MD Report Number: [id number]: Total DLP = 557.00 mGy-cm CLINICAL HISTORY: M31.0 - Hypersensitivity angiitis CT chest without contrast Comparison: CR/SR - XR CHEST 2V - 04/23/24 16:16 EDT Findings: The heart is normal size. Mitral annular calcification. The visualized thyroid and mediastinum are unremarkable. The lungs are clear. No consolidation or any evidence of inflammation in the lungs. No pleural effusion or pneumothorax. Cholecystectomy. No acute findings in the visualized upper abdomen. No acute fractures. IMPRESSION: 1. No acute thoracic findings. This document has been electronically signed by: Celena Lassiter MD on 02/04/2025 19:46:09 Dictated By: Celena Lassiter MD Signed By: <Electronically signed by Celena Lassiter MD in OV> 02/04/251946 DD/ 45 TD/TT: 02/04/251945 Critical Care Registered Nurse: [facility] External Provider IMG CT PROCEDURES Final Result * Hepatitis Panel, General (12/28/2024 2:24 PM EDT) Hepatitis A IgM Nonreactive Nonreactive [facility] Comment:IgM antibodies to LUTHER V not detected; does not exclude earlyacute or recovered HAV infection. ~Hepatitis B Surface Antibody NONREACTIVE Nonreactive [facility] Comment:Nonreactive: < 8.00 mIU/mL Hepatitis B Core Antibody Nonreactive Nonreactive [facility] Hepatitis C Antibody Nonreactive Nonreactive [facility] Comment:Antibodies to HCV no t detected; does not exclude early acuteHCV infection. Hepatitis B Surface Ag Negative Negative [facility] 12/28/2024 2:24 PM EDT 12/28/2024 2:26 PM EDT us Generic External Data Provider LAB BLOOD ORDERAB LES Final Result Performing Organization Address [facility]/ZIP Co de Phone Number [facility] [address] [place] [phone] * (ABNORMAL) Lipid Panel, Standard (12/28/2024 2:24 PM EDT) Triglycerides 138 <150 mg/dL [facility] Comment:Desirable Triglyceri de: less than 150 mg/dLBorderline High Triglyceride 150-199 mg/dLHigh Triglyceride: 200-499 mg/dLVery High Triglyceride: greater than or equal to 5OO mg/dL Cholesterol 199 <200 mg/dL [facility] Comment:Desirable Cholestero l: less than 200 mg/dLBorderline High Cholesterol: 200-239 mg/dLHigh Cholesterol: greater than 239 mg/dL LDL Cholesterol Calculated 121(H) <100 mg/dL [facility] Comment:Desirable LDL: less than 100 mg/dLNear Optimal/Above Optimal LDL: 110- 129 mg/dLBorderline High LDL: 130-159 mg/dLHigh LDL: 160-189 mg/dLVery High LDL: greater than or equal to 190 mg/dL HDL Cholesterol 51 >40 mg/dL [facility] Comment:Desirable HDL: great er than 40 mg/dL Note: This HDL assay may give artificially low results in patients with liver disease. Blood Venous blood specimen / Unknown 12/28/2024 2:24 PM EDT 12/28/2024 2:26 PM EDT us Aaron Harris MD LAB BLOOD ORDERABLES Final Result Performing Organization Address [facility]/ZIP Co de Phone Number [facility] [address] [place] [phone] * HIV AB/AG (02/26/2020 1:03 PM EDT) [facility] HIV AG/AB NONREACTIVE [facility] Comment: HIV-1 p24 Ag and/or HIV-1/HIV-2 Ab not detected. A test result that is nonreactive does not exclude the possibility of exposure to or infection with HIV-1 and/or HIV-2. Nonreactive results in this assay for individuals with prior exposure to HIV-1 and/or HIV-2 may be due to antigen and antibody levels that are below the limit of detection of this assay. The [employer] Lift Truck Operator HIV Ag/Ab Combo assay result and supplemental assay results should be interpreted in conjunction with the patient's clinical presentation, history and other laboratory results. If the results are inconsistent with clinical evidence, additional testing is suggested to confirm the result. 02/26/2020 1:03 PM EDT us Aaron Harris MD HISTORICAL/NON ORDERA BLE LABS Final Result [facility] [address] from Last 3 Months or Most Recently Relevant to Health Maintenance Insurance [facility] C3 DENTAL-[facility] MEDICAID STAND ADULT [place] [address] [place] [address] [place] [phone] [place] [phone] Care Teams Bat Boy/Girl Relationship Specialty Start Date End Date Aaron Pisano MD [address] [place] [address] PCP - General Internal Medicine 05/10/14 Antonietta Lim Cut In WorkerTop Lift Nailer 09/18/24
== END 2025-04-05 09:21 | disposition home or self-care (01) ==
LOC: HO.HHCL 09:20
PROVIDERS: PCP Internal Medicine; Visit Provider Student in an Organized Health Care Education/Training Program
DX: Z13.89 Encounter for screening for other disorder (principal)

== ENCOUNTER 2025-05-03 16:09 | Outpatient (REF) | payer MEDICAID, SELFPAY ==
--- NOTE | ~2025-05-03 | CT_ITS ---
EXAMINATION: CT SINUS WITHOUT CONTRAST CLINICAL INFORMATION: J32.9 - Chronic sinusitis, unspecified COMPARISON: None available. TECHNIQUE: Axial CT was performed through the sinuses without contrast. Coronal and sagittal reformatted images were generated from the original axial data set. ALARA: The examination used one or more of the following radiation dose reduction techniques: Automated exposure control, iterative reconstruction, and/or adjustment of mA and/or KV. FINDINGS: The paranasal sinuses are clear. Turbinates are unremarkable. Anterior ethmoid infundibulum appears patent. CT/CT sinus wo IV con IMPRESSION: Unremarkable examination. Electronically signed by: Jamie Piedra MD 05/03/2025 05:11 PM EDT RP
--- OUTSIDE RECORDS SUMMARY | 2025-05-03 16:14 | XMS_ITS | Encounter Summary ---
Author Organization [employer] Address [address] 7t [place] [address] Care Team Providers Care Document Coordinator Name Role Phone Aaron Pisano MD Primary Care Provide r Reason for Visit * Reason Comments Med Refill Encounter Details Date Type Department Care Team ([facility] st Contact Info) Description 10/06/2023 Refill [facility] MEDICINE [address] [place] [address] Aaron Pisano MD 230 [place], [place] [phone] Chronic midline low back pain without sciatica [...] Care Team (Late st Contact Info) Description 05/08/2025 11:00 AM EDT Office Visit [facility] ADULT DENTAL [address] [place] [address] Miki Sarkar DDS [address] [place] [address] 05/31/2025 11:30 AM EDT Clinical Support [facility] MEDICINE [address] [place] [address] Altagracia Mancilla RN 505 [place] [address] 08/29/2025 12:45 PM EST Office Visit [facility] ADULT DENTAL [address] [place] [address] Zhanna Hernandez documented as of this encounter Goals Goal Patient Goal Type Associated Problems Recent Progress Patient-Stated? Author Blood Pressure < 140/90 Blood Pressure 130/90( 025 11:14 AM EDT) No Giovanna Banks, Carleen documented as of this encounter Visit Diagnoses Diagnosis Chronic midline low back pain without sciatica documented in this encounter Additional Health Concerns Assessment Noted Time PHQ-9 Depression Total Score: 12 024 1:46 PM EST documented as of this encounter Care Teams Document Coordinator Relationship Specialty Start Date End Date Aaron Pisano MD [address] [place] [address] PCP - General Internal Medicine 05/10/14 Antonietta Lim Vigoureux PrinterGrease Monkey 09/18/24 documented as of this encounter
--- OUTSIDE RECORDS SUMMARY | 2025-05-03 16:14 | XMS_ITS | Encounter Summary ---
Author Organization [employer] Address [address] [facility] 7t [place] [address] Care Team Providers Care Ballroom Dance Instructor Name Role Phone Aaron Pisano MD Primary Care Provide r Reason for Visit * Reason Onset Date Comments Med Refill 04/02/2025 Encounter Details Date Type Department Care Team ([facility] st Contact Info) Description 04/02/2025 Refill [facility] MEDICINE 230 [place] [address] Aaron Pisano MD 230 [place] [address] Diarrhea in adult patient Social History Tobacco [...] Description 05/08/2025 11:00 AM EDT Office Visit [facility] ADULT DENTAL [address] [place] [address] Miki Sarkar DDS 230 [place] [address] 05/31/2025 11:30 AM EDT Clinical Support [facility] MEDICINE [address] [place] [address] Altagracia Mancilla, GRACIELA [address] [place] [address] 08/29/2025 12:45 PM EST Office Visit [facility] ADULT DENTAL [address] [place] [address] Zhanna Hernandez documented as of this encounter Goals Goal Patient Goal Type Associated Problems Recent Progress Patient-Stated? Author Blood Pressure < 140/90 Blood Pressure 130/90( 025 11:14 AM EDT) No Giovanna Banks, PharmD documented as of this encounter Visit Diagnoses Diagnosis Diarrhea in adult patient documented in this encounter Additional Health Concerns Assessment Noted Time PHQ-9 Depression Total Score: 2 06/05/20 24 8:38 AM EDT documented as of this encounter Care Teams Ballroom Dance Instructor Relationship Specialty Start Date End Date Aaron Pisano MD 230 [place] [address] PCP - General Internal Medicine 05/10/14 Antonietta Lim Journeyman PainterCustomer Supply Chain Analyst 09/18/24 documented as of this encounter
--- OUTSIDE RECORDS SUMMARY | 2025-05-03 16:14 | XMS_ITS | Clinical Summary ---
Author Organization [facility] Address [facility] [place] [address] Care Team Providers Care Music Industry Internship Name Role Phone None Primary Care Provider Unavailabl e Allergies Active Allergy Reactions Criticality Noted Date Comments Albuterol Anaphylaxis High 02/10/2020 Amoxicillin Hives 02/10/2020 Doxycycline Hives 02/10/2020 Nsaids (Non-Steroidal Anti-I nflammatory Drug) Anaphylaxis High 02/10/2020 Medications predniSONE (Deltasone) 20 mg Tablet 3 tabs qd x 3d, 2 tabs qd x 3d, 1 tabs qd x 3d, 1/2 tab qd x 3d. Take the whole course of medication. 20 tablet 02/10/2020 Active Social History Tobacco Use Types Packs/Day Years Used Date Smoking Tobacco: Former Smokeless Tobacco: Never Comments Unknown Sex and Gender Information Value Date Recorded Sex Assigned at Not on file Legal Sex Female 6:10 PM EDT Gender Identity Not on file Sexual Orientation Not on file Last Filed Vital Signs Vital Sign Reading Time Taken Comments Blood Pressure 163/85 02/10/2020 8:18 PM EDT Pulse 73 02/10/2020 8:18 PM EDT Temperature 36.9 C (98.4 F) 02/10/2020 6:23 PM EDT Respiratory Rate 16 02/10/2020 8:18 PM EDT Oxygen Saturation 98% 02/10/2020 8:18 PM EDT Inhaled Oxygen Concentration - - Weight - - Height - - Body Mass Index - - Plan of Treatment Health Maintenance Due Date Last Done Comments CT Colonography 1977 Colonoscopy 1977 Colorectal Cancer Screening 1977 FIT DNA 1977 FIT 1977 Sigmoidoscopy (10 year) with FIT yearly 1977 Sigmoidoscopy 1977 HIV screen 1995 Hepatitis C Screening 1995 Hepatitis B vaccine (0-59 yrs) and Risk (1) 1996 Tetanus/Diphtheria/Pertussis Vaccines (1 - Tdap) 07/30 HPV test 2007 PAP Smear 2007 Breast Cancer Share Decision Needed 2017 Breast Cancer screening 2017 Covid-19 Vaccine (1 - season) 2025 Influenza (Flu) vaccine (1 o f 1 - Influenza standard series) 04/08/2025 Insurance MEDICAID MANAGED [place] Care Teams Music Industry Internship Relationship Specialty Start Date End Date None None PCP - General 02/10/20
--- OUTSIDE RECORDS SUMMARY | 2025-05-03 16:14 | XMS_ITS | Encounter Summary ---
Author Organization [employer] Address [address] [facility] 7t [place] [address] Care Team Providers Care Mold Yarn Supervisor Name Role Phone Aaron Pisano MD Primary Care Provide r Reason for Visit * Reason Onset Date Comments Med Refill 03/05/2025 Encounter Details Date Type Department Care Team ([facility] st Contact Info) Description 03/05/2025 Refill [facility] MEDICINE [address] [place] [address] Aaron Pisano MD 230 [place] [address] Chronic midline low back pain without sciatica [...] Description 05/08/2025 11:00 AM EDT Office Visit [facility] ADULT DENTAL [address] [place] [address] Miki Sarkar DDS 230 [place] [address] 05/31/2025 11:30 AM EDT Clinical Support [facility] MEDICINE [address] [place] [address] Altagracia Mancilla, GRACIELA 505 [place] [address] 08/29/2025 12:45 PM EST Office Visit [facility] ADULT DENTAL [address] [place] [address] Zhanna Hernandez documented as of this encounter [...] documented as of this encounter Care Teams Mold Yarn Supervisor Relationship Specialty Start Date End Date Aaron Pisano MD [address] [place] [address] PCP - General Internal Medicine 05/10/14 Antonietta Lim Wall WasherHydropulper 09/18/24 documented as of this encounter
--- OUTSIDE RECORDS SUMMARY | 2025-05-03 16:14 | XMS_ITS | Encounter Summary ---
Author Organization [employer] Address [address] [facility] 7t [place] [address] Care Team Providers Care Material Checker Name Role Phone Aaron Pisano MD Primary Care Provide r Reason for Visit * Reason Comments Med Refill Encounter Details Date Type Department Care Team ([facility] st Contact Info) Description 08/09/2023 Refill [facility] MEDICINE 230 [place] [address] Sumi Vang ANP 230 [place] [address] Chronic midline low back pain without sciatica [...] Description 05/08/2025 11:00 AM EDT Office Visit [facility] ADULT DENTAL [address] [place] [address] Miki Sarkar DDS [address] [place] [address] 05/31/2025 11:30 AM EDT Clinical Support [facility] MEDICINE [address] [place] [address] Altagracia Mancilla, GRACIELA 505 [place] [address] 08/29/2025 12:45 PM EST Office Visit [facility] ADULT DENTAL [address] [place] [address] Zhanna Hernandez documented as of this encounter Goals Goal Patient Goal Type Associated Problems Recent Progress Patient-Stated? Author Blood Pressure < 140/90 Blood Pressure 130/90( 025 11:14 AM EDT) No Giovanna Banks, PharmD documented as of this encounter Visit Diagnoses Diagnosis Chronic midline low back pain without sciatica documented in this encounter Care Teams Material Checker Relationship Specialty Start Date End Date Aaron Pisano MD [address] [place] [address] PCP - General Internal Medicine 05/10/14 Antonietta Lim Neck CutterAcid Tester 09/18/24 documented as of this encounter
--- OUTSIDE RECORDS SUMMARY | 2025-05-03 16:14 | XMS_ITS | Encounter Summary ---
Author Organization [employer] Address [address] [facility] 7 [place] [address] Care Team Providers Care Copier And Printer Field Technician Name Role Phone Aaron Pisano MD Primary Care Provide r Reason for Visit * Reason Onset Date Comments Med Refill 08/24/2022 Encounter Details Date Type Department Care Team ([facility] st Contact Info) Description 08/24/2022 Telephone [facility] MEDICINE [address] [place] [address] Aaron Pisano MD [address] [place] [address] Med Refill Social History Tobacco Use Types [...] Description 05/08/2025 11:00 AM EDT Office Visit [facility] ADULT DENTAL 230 [place] [address] Miki Sarkar DDS [address] [place] [address] 05/31/2025 11:30 AM EDT Clinical Support [facility] MEDICINE [address] [place] [address] Altagracia Mancilla, GRACIELA 505 [place], [place] [phone] 08/29/2025 12:45 PM EST Office Visit [facility] ADULT DENTAL [address] [place] [address] Zhanna Hernandez documented as of this encounter Visit Diagnoses Not on filedocumented in this encounter Care Teams Copier And Printer Field Technician Relationship Specialty Start Date End Date Aaron Pisano MD [address] [place] [address] [phone] PCP - General Internal Medicine 05/10/14 Antonietta Lim Director Of DanceBusiness Services Manager 09/18/24 documented as of this encounter
--- OUTSIDE RECORDS SUMMARY | 2025-05-03 16:14 | XMS_ITS | Encounter Summary ---
Author Organization [employer] Address [address] [place] [address] 7 [place] [address] Care Team Providers Care Bias Machine Operator Helper Name Role Phone Aaron Pisano MD Primary Care Provide r Encounter Details Date Type Department Care Team (Latest Contact Info) Description 11/10/2020 Abstract [facility] CONVERSIONS Dental, Provider, DDS Social History Tobacco [...] Description 05/08/2025 11:00 AM EDT Office Visit [facility] ADULT DENTAL [address] [place] [address] Miki Sarkar DDS [address] [place] [address] 05/31/2025 11:30 AM EDT Clinical Support [facility] MEDICINE [address] [place] [address] Altagracia Mancilla RN 505 [place] [address] 08/29/2025 12:45 PM EST Office Visit [facility] ADULT DENTAL [address] [place] [address] Zhanna Hernandez documented as of this encounter Visit Diagnoses Not on filedocumented in this encounter Care Teams Bias Machine Operator Helper Relationship Specialty Start Date End Date Aaron Pisano MD 230 [place] [address] PCP - General Internal Medicine 05/10/14 Antonietta Lim Funeral PlannerNaturopath 09/18/24 documented as of this encounter
--- OUTSIDE RECORDS SUMMARY | 2025-05-03 16:14 | XMS_ITS | Encounter Summary ---
Author Organization [employer] Address [address] [facility] 7t [place] [address] Care Team Providers Care Supervisor [place] Name Role Phone Aaron Pisano MD Primary Care Provide r Reason for Visit * Reason Comments Med Refill Encounter Details Date Type Department Care Team ([facility] st Contact Info) Description 04/04/2025 Refill [facility] MEDICINE 230 [place] [address] Aaron Pisano MD 230 [place], [place] [phone] Chronic midline low back pain without sciatica [...] Description 05/08/2025 11:00 AM EDT Office Visit [facility] ADULT DENTAL [address] [place] [address] Miki Sarkar DDS 230 [place] [address] 05/31/2025 11:30 AM EDT Clinical Support [facility] MEDICINE [address] [place] [address] Altagracia Mancilla, GRACIELA 505 [place] [address] 08/29/2025 12:45 PM EST Office Visit [facility] ADULT DENTAL [address] [place] [address] Zhanna Hernandez documented as of this encounter Goals Goal Patient Goal Type Associated Problems Recent Progress Patient-Stated? Author Blood Pressure < 140/90 Blood Pressure 130/90( 025 11:14 AM EDT) No Piers-Gambl e, Giovanna, PharmD documented as of this encounter Visit Diagnoses Diagnosis Chronic midline low back pain without sciatica documented in this encounter Additional Health Concerns Assessment Noted Time PHQ-9 Depression Total Score: 2 06/05/20 24 8:38 AM EDT documented as of this encounter Care Teams Supervisor [place] Relationship Specialty Start Date End Date Aaron Pisano MD 230 [place] [address] PCP - General Internal Medicine 05/10/14 Antonietta Lim Hematology SpecialistDirector Institution 09/18/24 documented as of this encounter
--- OUTSIDE RECORDS SUMMARY | 2025-05-03 16:14 | XMS_ITS | Encounter Summary ---
Author Organization [employer] Address [address] [place] [address] 7t [place] [address] Care Team Providers Care Atomic Welder Name Role Phone Aaron Pisano MD Primary Care Provide r Reason for Visit * Reason Comments Med Refill Encounter Details Date Type Department Care Team ([facility] Contact Info) Description 02/18/2023 Refill [facility] MEDICINE [address] [place] [address] Aaron Pisano MD [address] [place] [address] Social History Tobacco Use Types Packs/Day Years [...] Encounters Date Type Department Care Team ([facility] Contact Info) Description 05/08/2025 11:00 AM EDT Office Visit [facility] ADULT DENTAL [address] [place] [address] Miki Sarkar DDS [address] [place] [address] 05/31/2025 11:30 AM EDT Clinical Support [facility] MEDICINE [address] [place] [address] Altagracia Mancilla, RN 505 [place] [address] 08/29/2025 12:45 PM EST Office Visit [facility] ADULT DENTAL [address] [place] [address] Zhanna Hernandez documented as of this encounter Visit Diagnoses Not on filedocumented in this encounter Care Teams Atomic Welder Relationship Specialty Start Date End Date Aaron Pisano MD [address] [place] [address] PCP - General Internal Medicine 05/10/14 Antonietta Lim Chief Accounting OfficerComparison Shopper 09/18/24 documented as of this encounter
--- OUTSIDE RECORDS SUMMARY | 2025-05-03 16:14 | XMS_ITS | Encounter Summary ---
Author Organization [employer] Address [address] [place] [address] 7t [place] [address] Care Team Providers Care Travel Services Professional Name Role Phone Aaron Pisano MD Primary Care Provide r Reason for Visit * Reason Comments Med Refill Encounter Details Date Type Department Care Team (Late Contact Info) Description 03/15/2023 Refill [facility] MEDICINE [address] [place] [address] Aaron Pisano MD 230 [place] [address] Smoker Social History Tobacco Use Types Packs/Day [...] Description 05/08/2025 11:00 AM EDT Office Visit [facility] ADULT DENTAL 230 [place] [address] Miki Sarkar DDS 230 [place] [address] 05/31/2025 11:30 AM EDT Clinical Support [facility] MEDICINE [address] [place] [address] Altagracia Mancilla, GRACIELA 505 [place] [address] 08/29/2025 12:45 PM EST Office Visit [facility] ADULT DENTAL 230 [place] [address] Zhanna Hernandez documented as of this encounter Visit Diagnoses Diagnosis Smoker Tobacco use disorder documented in this encounter Care Teams Travel Services Professional Relationship Specialty Start Date End Date Aaron Pisano MD [address] [place] [address] PCP - General Internal Medicine 05/10/14 Antonietta Lim Bead Forming Machine Set Up OperatorOnline Project Manager 09/18/24 documented as of this encounter
--- OUTSIDE RECORDS SUMMARY | 2025-05-03 16:14 | XMS_ITS | Encounter Summary ---
Author Organization [employer] Address [address] [facility] 7t [place] [address] Care Team Providers Care Bull Ladle Tender Name Role Phone Aaron Pisano MD Primary Care Provide r Reason for Visit * Reason Comments Med Refill Encounter Details Date Type Department Care Team ([facility] st Contact Info) Description 03/05/2025 Refill [facility] MEDICINE [address] [place] [address] Aaron Pisano MD [address] [place], [place] [phone] Chronic midline low back pain without sciatica [...] Description 05/08/2025 11:00 AM EDT Office Visit [facility] ADULT DENTAL [address] [place] [address] Miki Sarkar DDS 230 [place] [address] 05/31/2025 11:30 AM EDT Clinical Support [facility] MEDICINE [address] [place] [address] Altagracia Mancilla, GRACIELA 505 [place] [address] 08/29/2025 12:45 PM EST Office Visit [facility] ADULT DENTAL [address] [place] [address] Zhanna Hernandez documented as of this encounter [...] documented as of this encounter Care Teams Bull Ladle Tender Relationship Specialty Start Date End Date Aaron Pisano MD [address] [place] [address] PCP - General Internal Medicine 05/10/14 Antonietta Lim Etch Operator Semiconductor WafersEmail Campaign Specialist 09/18/24 documented as of this encounter
--- OUTSIDE RECORDS SUMMARY | 2025-05-03 16:14 | XMS_ITS | Encounter Summary ---
Author Organization [email or web address] Address [address] [facility] 7t [place] [address] Care Team Providers Care Manager Fitness Name Role Phone Aaron Pisano MD Primary Care Provide r Reason for Visit * Reason Onset Date Comments Med Refill 11/07/2024 Encounter Details Date Type Department Care Team ([facility] st Contact Info) Description 11/07/2024 Refill [facility] MEDICINE [address] [place] [phone] Aaron Pisano MD 230 [place] [address] Chronic midline low back pain without sciatica; [...] the past 12 months, has t he [email or web address], gas, oil or water company threatened to [...] Description 05/08/2025 11:00 AM EDT Office Visit [facility] ADULT DENTAL [address] [place] [address] Miki Sarkar DDS 230 [place] [address] 05/31/2025 11:30 AM EDT Clinical Support [facility] MEDICINE [address] [place] [address] Altagracia Mancilla, GRACIELA 505 [place] [address] 08/29/2025 12:45 PM EST Office Visit [facility] ADULT DENTAL [address] [place] [address] Zhanna Hernandez documented as of this encounter Goals Goal Patient Goal Type Associated Problems Recent Progress Patient-Stated? Author Blood Pressure < 140/90 Blood Pressure 130/90( 025 11:14 AM EDT) Giovanna Edwards, SohamD documented as of this encounter Visit Diagnoses Diagnosis Chronic midline low back pain without sciatica Diarrhea in adult patient documented in this encounter Additional Health Concerns Assessment Noted Time PHQ-9 Depression Total Score: 2 06/05/20 24 8:38 AM EDT documented as of this encounter Care Teams Manager Fitness Relationship Specialty Start Date End Date Aaron Pisano MD [address] [place] [address] PCP - General Internal Medicine 05/10/14 Antonietta Lim Farm Equipment TechnicianManager Poker 09/18/24 documented as of this encounter
--- OUTSIDE RECORDS SUMMARY | 2025-05-03 16:14 | XMS_ITS | Encounter Summary ---
Author Organization [employer] Address [address] [place] [address] 7 [place] [address] Care Team Providers Care Supervisor Painting Name Role Phone Aaron Pisano MD Primary Care Provide r Reason for Visit * Reason Onset Date Comments Med Refill 04/04/2023 Encounter Details Date Type Department Care Team ([facility] st Contact Info) Description 04/04/2023 Telephone [facility] [address] [place] [phone] Aaron Pisano MD [address] [place] [address] Med Refill Social History Tobacco Use Types [...] Description 05/08/2025 11:00 AM EDT Office Visit [facility] [address] [place] [address] Miki Sarkar DDS [address] [place] [address] 05/31/2025 11:30 AM EDT Clinical Support [facility] [address] [place] [address] Altagracia Mancilla, RN [address] [place] [address] 08/29/2025 12:45 PM EST Office Visit [facility] [address] [place] [address] Zhanna Hernandez documented as of this encounter Goals Goal Patient Goal Type Associated Problems Recent Progress Patient-Stated? Author Blood Pressure < 140/90 Blood Pressure 130/90( 025 11:14 AM EDT) No Giovanna Banks, PharmD documented as of this encounter Visit Diagnoses Not on filedocumented in this encounter Care Teams Supervisor Painting Relationship Specialty Start Date End Date Aaron Pisano MD [address] [place] [phone] PCP - General Internal Medicine 05/10/14 Antonietta Lim Store Team LeaderManufacturing Technician 09/18/24 documented as of this encounter
--- OUTSIDE RECORDS SUMMARY | 2025-05-03 16:14 | XMS_ITS | Encounter Summary ---
Author Organization [employer] Address [address] [place] [address] 7 [place] [address] Care Team Providers Care Co Teacher Name Role Phone Aaron Pisano MD Primary Care Provide r Reason for Visit * Reason Onset Date Comments Med Refill 09/14/2022 Encounter Details Date Type Department Care Team (Late Contact Info) Description 09/14/2022 Telephone [facility] [address] [place] [phone] Aaron Pisano MD [address] [place] [phone] Med Refill Social History Tobacco Use Types [...] Department Care Team (Late Contact Info) Description 05/08/2025 11:00 AM EDT Office Visit [facility] [address] [place] [address] Miki Sarkar DDS [address] [place] [address] 05/31/2025 11:30 AM EDT Clinical Support [facility] [address] [place] [address] Altagracia Mancilla, GRACIELA [address] [place] [address] 08/29/2025 12:45 PM EST Office Visit [facility] [address] [place] [address] Zhanna Hernandez documented as of this encounter Visit Diagnoses Not on filedocumented in this encounter Care Teams Co Teacher Relationship Specialty Start Date End Date Aaron Pisano MD [address] [place] [phone] PCP - General Internal Medicine 05/10/14 Antonietta Lim Software Integration DeveloperAccounting File Clerk 09/18/24 documented as of this encounter
--- OUTSIDE RECORDS SUMMARY | 2025-05-03 16:14 | XMS_ITS | Encounter Summary ---
Author Organization [employer] Address [address] [facility] 7t [place] [address] Care Team Providers Care Application Packager Name Role Phone Aaron Pisano MD Primary Care Provide r Reason for Visit * Reason Onset Date Comments Med Refill 11/16/2022 Encounter Details Date Type Department Care Team ([facility] st Contact Info) Description 11/16/[address] [facility] [address] [place] [address] Aaron Pisano MD [address] [place] [address] Med Refill Social History Tobacco Use Types [...] MG immediate release tablet Please sent to [facility] - [place], [place] - [address] [place] [address] documented in this encounter Plan of Treatment Upcoming Encounters Date Type Department Care Team (Late st Contact Info) Description 05/08/2025 11:00 AM EDT Office Visit [facility] [address] [place] [address] Miki Sarkar DDS [address] [place] [address] 05/31/2025 11:30 AM EDT Clinical Support [facility] [address] [place] [address] Altagracia Mancilla, RN [address] [place] [address] 08/29/2025 12:45 PM EST Office Visit [facility] 230 [facility] [address] Zhanna Hernandez documented as of this encounter Visit Diagnoses Not on filedocumented in this encounter Care Teams Application Packager Relationship Specialty Start Date End Date Aaron Pisano MD [address] [place] [phone] PCP - General Internal Medicine 05/10/14 Antonietta Lim Sheet Metal Production WorkerCardiothoracic Icu Rn 09/18/24 documented as of this encounter
--- OUTSIDE RECORDS SUMMARY | 2025-05-03 16:14 | XMS_ITS | Encounter Summary ---
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 documented in this encounter Plan of Treatment Upcoming Encounters Date Type Department Care Team (Late st Contact Info) Description 05/08/2025 11:00 AM EDT Office Visit [facility] [address] [place] [address] Miki Sarkar DDS [address] [place] [address] 05/31/2025 11:30 AM EDT Clinical Support [facility] [address] [place] [phone] Altagracia Mancilla, GRACIELA [address] [place] [address] 08/29/2025 12:45 PM EST Office Visit [facility] [address] [place] [address] Zhanna Hernandez documented as of this encounter [...] documented as of this encounter Care Teams Car Ferrier Relationship Specialty Start Date End Date Aaron Pisano MD [address] [place] [address] PCP - General Internal Medicine 05/10/14 Antonietta Lim Collector Of PortCoach Mechanic 09/18/24 documented as of this encounter
--- OUTSIDE RECORDS SUMMARY | 2025-05-03 16:14 | XMS_ITS | Encounter Summary ---
Author Organization [employer] Address [address] [facility] 7t [place] [address] Care Team Providers Care Sign Designer Name Role Phone Aaron Pisano MD Primary Care Provide r Reason for Visit * Reason Comments Med Refill Encounter Details Date Type Department Care Team ([facility] st Contact Info) Description 10/08/2024 Refill [facility] [address] [place] [address] Aaron Pisano MD [address] [place], [place] [phone] Diarrhea in adult patient; Chronic midline low [...] 11:00 AM EDT Office Visit [facility] ADULT DENTAL [address] [place] [address] Miki Sarkar DDS [address] [place] [address] 05/31/2025 11:30 AM EDT Clinical Support [facility] [address] [place] [address] Altagracia Mancilla, GRACIELA [address] [place] [address] 08/29/2025 12:45 PM EST Office Visit [facility] [address] [place] [address] Zhanna Hernandez documented as of this encounter [...] documented as of this encounter Care Teams Sign Designer Relationship Specialty Start Date End Date Aaron Pisano MD [address] [place] [address] PCP - General Internal Medicine 05/10/14 Antonietta Lim Supervisor SandblasterApplication Engineer 09/18/24 documented as of this encounter
--- OUTSIDE RECORDS SUMMARY | 2025-05-03 16:14 | XMS_ITS | Encounter Summary ---
Author Organization [employer] Address [address] [facility] 7t [place] [address] Care Team Providers Care Pvc Loader Name Role Phone Aaron Pisano MD Primary Care Provide r Reason for Visit * Reason Onset Date Comments Nurse Triage 02/21/2023 Encounter Details Date Type Department Care Team ([facility] st Contact Info) Description 02/21/2023 Telephone [facility] [address] [place] [phone] Aaron Pisano MD [address] [place] [address] Nurse Triage Social History Tobacco Use Types [...] 4:45 PM EDT Please assist with obtaining [facility] ED discharge notes for 02/10/23. This process description writer does not have [place] access. Pt sent to ER after visit with [facility]. * Telephone Encounter - Leora Campbell RN - 02/21/2023 4:39 PM EDT Call to Zee Villanueva , reports having vomiting since seen at [facility] ER. Per pt was given abx for [...] Center 02/25/2023 9:30 AM DUY Taveras MEDICINE [facility] 03/21/2023 1:00 PM Giovanna Payne PharmD MEDICINE [facility] 04/27/2023 3:00 PM Aniya Anderson RN MEDICINE [facility] Multiple (2) protocols were used on [...] accepted this outcome Please contact pt at [phone] Pt was at [facility] hospital on 02/10/2023 for same symptoms. documented in this encounter Plan of Treatment Upcoming Encounters Date Type Department Care Team (Late st Contact Info) Description 05/08/2025 11:00 AM EDT Office Visit [facility] ADULT DENTAL [address] [place] [phone] Miki Sarkar DDS [address] [place] [address] 05/31/2025 11:30 AM EDT Clinical Support [facility] [address] [place] [address] Altagracia Mancilla, GRACIELA [address] [place] [address] 08/29/2025 12:45 PM EST Office Visit [facility] AD[facility] [address] [place] [address] Zhanna Hernandez documented as of this encounter Visit Diagnoses Not on filedocumented in this encounter Care Teams Pvc Loader Relationship Specialty Start Date End Date Aaron Pisano MD [address] [place] [phone] PCP - General Internal Medicine 05/10/14 Antonietta Lim Irrigation SpecialistTheatrical Scenic Designer 09/18/24 documented as of this encounter
--- OUTSIDE RECORDS SUMMARY | 2025-05-03 16:14 | XMS_ITS | Clinical Summary ---
Author Organization [employer] Address [address] [facility] [address] [place] [address] Care Team Providers Care Wool Hat Finisher Name Role Phone Aaron Pisano MD Primary [...] tablet by mouth at bed time. Active Blood Pressure kit Active zolpidem CR [...] MILD PAIN 60 tablet 08/13/19 25 Active cholecalcifer ol (D3 Super Strength) [...] MORNING 90 tablet 1 12/26/19 25 Active furosemide (Lasix) 40 MG tabletIndicat ions:Primary hypertension, Vasculitis (CMS/HCC) TAKE 1 TABLET BY MOUTH EVERY MORNING 90 tablet 1 02/13/20 25 Active valACYclovir (Valtrex) 1 g tablet [...] OF WATER 14 tablet 04/01/20 25 Active naloxone (Narcan) 4 mg/0.1 mL nasal spray Administer 1 spray (4 mg) into affected nostril(s) if needed for opioid reversal. In one nostril may repeat dose every 2-3 minutes as needed alternating nostrils with each dose 2 each 1 04/05/20 25 Active losartan (Cozaar) 25 MG tablet TAKE 1 TABLET BY MOUTH EVERY MORNING 90 tablet 1 04/11/20 25 Active baclofen (Lioresal) 10 MG tabletIndicat ions:Chronic bilateral low back pain without sciatica TAKE 1 TABLET BY MOUTH TWICE DAILY IN THE MORNING AND IN THE EVENING NEEDED FOR MUSCLE SPASMS 60 tablet 1 04/23/20 25 Active diphenhydrAMI NE (Laureen-Dryl) 25 MG tabletIndicat ions:Intracta ble vomiting with nausea TAKE 1 TABLET BY MOUTH THREE TIMES DAILY BEFORE FOOD NEEDED FOR NAUSEA AND VOMITING 90 tablet 1 04/23/20 25 Active loperamide (Anti-Diarrhe al) 2 MG tabletIndicat ions:Diarrhea in adult patient TAKE 2 TABLETS BY MOUTH TODAY THEN TAKE 1 TABLET AFTER EACH WATERY STOOL. NO MORE THAN 8 TABLETS PER 24 HOURS 7 tablet 05/02/20 25 Active oxyCODONE (Roxicodone) 5 MG immediate release tabletIndicat ions:Chronic midline low back pain without sciatica TAKE 1 TABLET BY MOUTH EVERY TWELVE HOURS NEEDED FOR SEVERE PAIN 56 tablet 05/03/20 25 Active ondansetron (Zofran) 4 MG tablet TAKE 1 TABLET BY MOUTH EVERY 8 HOURS NEEDED FOR NAUSEA AND VOMITING FOR UP TO 7 DAYS 20 tablet 05/02/20 25 Active azithromycin (Zithromax Z-Silvano) 250 MG tabletIndicat ions:Breast cyst, right Take 2 tabs po x 1 day then 1 tab po daily x 4 days 6 tablet 09/06/19 25 025 Discontinued(T herapy completed) losartan (Cozaar) 25 MG tablet TAKE 1 TABLET BY MOUTH EVERY MORNING 90 tablet 1 09/20/19 25 025 Discontinued fluticasone (Flonase) 50 MCG/ACT nasal sprayIndicati ons:Seasonal allergies INHALE 1 SPRAY IN EACH NOSTRIL TWICE DAILY 48 g 1 01/19/20 25 025 Discontinued diphenhydrAMI NE (Laureen-Dryl) 25 MG tabletIndicat ions:Intracta ble vomiting with nausea TAKE 1 TABLET BY MOUTH THREE TIMES DAILY BEFORE MEALS NEEDED FOR NAUSEA AND VOMITING 90 tablet 1 02/23/20 025 Discontinued baclofen (Lioresal) 10 MG tabletIndicat ions:Chronic bilateral low back pain without sciatica TAKE 1 TABLET BY MOUTH TWICE DAILY IN THE MORNING AND AT BEDTIME NEEDED FOR MUSCLE SPASMS 60 tablet 1 02/23/20 025 Discontinued oxyCODONE (Roxicodone) 5 MG immediate release tabletIndicat ions:Chronic midline low back pain without sciatica Take 1 tablet (5 mg) by mouth every 12 (twelve) hours if needed for severe pain. 56 tablet 03/05/20 025 Discontinued(R eorder (will not trigger notification to Pharmacy)) loperamide (Anti-Diarrhe al) 2 MG tabletIndicat ions:Diarrhea in adult patient TAKE 2 TABLETS BY MOUTH TODAY THEN TAKE 1 TABLET AFTER EACH WATERY STOOL. NO MORE THAN 8 TABLETS PER 24 HOURS 7 tablet 04/05/20 25 025 Discontinued(R eorder (will not trigger notification to Pharmacy)) ondansetron (Zofran) 4 MG tablet TAKE 1 TABLET BY MOUTH EVERY 8 HOURS NEEDED FOR NAUSEA AND VOMITING FOR UP TO 7 DAYS 20 tablet 04/05/20 025 Discontinued(R eorder (will not trigger notification to Pharmacy)) oxyCODONE (Roxicodone) 5 MG immediate release tabletIndicat ions:Chronic midline low back pain without sciatica Take 1 tablet (5 mg) by mouth every 12 (twelve) hours if needed for severe pain. 56 tablet 04/05/20 25 025 Discontinued Nirmatrelvir& Ritonavir 300/100 (Paxlovid, 300/100,) 20 x 150 MG & 10 x 100MG tablet therapy packIndicatio ns:COVID-19 Take 1 Dose by mouth 2 times daily for 5 days. 1 each 04/09/20 25 Active Problems Problem Noted Date Diagnosed Date COVID-19 04/09/2025 Assessment & Plan (04/09/2025 12:13 PM EDT): Patient with c/o persistent cough, no fever Flu, strep neg Covid-19 positive Lungs CTA B, Pulse oxymetry normal Plan: Paxlovid Pt instructed to STOP Advair, Oxycodone and Ambien while taking paxlovid, resume once completed Supportive measures F/u if worsening or no improvement Open fracture of tooth 03/13/2025 Bruxism, sleep-related [...] ER Acute cough 01/05/2024 Assessment & Plan (04/09/2025 12:03 PM EDT): Pt here with c/o dry cough x 3 weeks, No fever , No sob, on exam lungs are clear. I suspect her dry cough is a result of post nasal drip. Covid-19 positive Plan: supportive measures, Paxlovid Assessment & Plan (01/05/2024 2:59 PM EDT): Pt here with c/o dry cough x 1 week, No fever , No sob, on exam lungs are clear. I suspect her dry cough is a result of post nasal drip. Plan: Continue antihistaminics, add Flonase Plain chest x-ray Seasonal allergies 01/05/2024 Routine physical examination 08/23/2023 [...] withdrawal. Use nicotine gum prn, continue chantix Back pain 03/22/2023 Assessment & Plan (01/05/2024 [...] stockings Primary hypertension 08/03/2022 Assessment & Plan (04/09/2025 12:02 PM EDT): Here for a follow up Pt reports checking her BP at home Ranging between 130-142 systolic BP controlled on a regimen of: Losartan 50 mg po daily Given adequate blood pressure control will continue with current medical regimen. Most recent electrolytes, Bun and Creatinine done on: Lab Results Component Value Date NA 142 12/28/2024 NA 141 08/27/2024 K 2.8 (LL) 12/28/2024 K 3.8 08/27/2024 CL 99 12/28/2024 CL 104 08/27/2024 BUN 16 12/28/2024 BUN 15 08/27/2024 CREATININE 0.98 12/28/2024 CREATININE 0.80 08/27/2024 K was low at 2.8, pt had a repeat at ED that went up to 4.0 Will repeat BMP patient advised to adhere to a low sodium diet, encouraged about medication compliance, counseled about weight loss. Assessment & Plan (12/25/2024 12:51 PM EDT): [...] about medication compliance, counseled about weight loss. 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 She is under the care of Polarity Tester Dr. Reagan Alfaro last note [id number] He recommended to: Monitor given that There is no serological evidence of systemic vasculitis. If she has a recurrence within the next year I think it would warrant immunosuppressive treatment at that time. 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 She is under the care of Polarity Tester Dr Newberry. She is on Prednisone 2 [...] Routine health maintenance 06/29/2022 Assessment & Plan (04/09/2025 11:44 AM EDT): Mammogram: 03/01/2025 Negative Pap Smear: NL: 08/31/2002 s/p SHANICE Colonoscopy: Pt had done 02/15/2025 per her report, record requested Assessment & Plan (09/06/2024 2:54 PM EST): [...] psychotherapist and a psychiatrist Dr. Gregory. At [facility] Pt is on: Hydroxyzine, Ambien, Assessment & Plan (08/23/2023 2:06 PM EST): Pt under the care of a psychotherapist and a psychiatrist. At [facility] Pt is no longer on Abilify nor Clonidine. She is now on Geodon Assessment & Plan (08/03/2022 9:22 AM EST): Pt under the care of a psychotherapist and a psychiatrist. At [facility] started on Abilify 7.5 mg po daily [...] most recently seen by Dr Rodas at [facility] 06/15/2024 who recommended PRN follow up Assessment [...] Mild intermittent asthma 05/13/2015 Assessment & Plan (04/09/2025 12:14 PM EDT): No recent exacerbations. Under the care of Pulmonology Dr Pearson last seen 01/28/2025 On a regimen of Advair. Pt to HOLD Advair while on Paxlovid ( tested positive for Covid-19) Pt no longer using Pro-Air MDI.. She tells me she has a reaction to it No longer smoking Assessment & Plan (09/06/2024 2:43 PM EST): [...] (08/23/2023 1:51 PM EST): Previously referred to [facility] Comprehensive weight management program. Seen twice, they prompter to discuss with her mental health provider her eating habits before they would consider accepting her into the program Assessment & Plan (12/30/2022 3:28 PM EDT): Previously referred to [facility] Comprehensive weight management program Assessment & Plan (08/03/2022 1:48 PM EST): Referred to [facility] Comprehensive weight management program Genital herpes simplex [...] EST): Seen in the past by an Group Account Director (Dr. Dozier) Under the care of Clare Carlin The last US on record done at [facility] 01/2019 showed a hypoechoic well circumscribed solid structure in the region of the posterior vaginal cuff 1 x 1.4 x 1.3 cm unchanged in size and appearance since a prior study 10/02/2015 radiologist emntions that stability over a 3 yr period indicates benignity Resolved Problems Problem Noted Date Diagnosed Date Resolved Date Acute frontal sinusitis 01/05/2024 09/0 09/2024 Assessment & Plan (01/05/2024 3:01 PM EDT): Pt here with c/o pain on her frontal sinuses associated with purulent nasal discharge On exam there is tenderness to palpation Supportive measures Rx Augmentin, asked to call or come back if symptoms do not improve or worsen Chest pain 03/22/2023 12/25/2024 History of hysterectomy for benign disease 06/21/2012 08/03/2022 Encounters Date Type Department Care Team Description 05/02/2025 Refill [facility] [address] [place] [address] Aaron Pisano MD Chronic midline low back pain without sciatica 05/02/2025 Refill [facility] [address] [place] [address] Aaron Pisano MD Chronic midline low back pain without sciatica 05/01/2025 Refill [facility] [address] [place] [address] Aaron Pisano MD 05/01/2025 Refill [facility] [address] [facility] [place] [address] Aaron Pisano MD Diarrhea in adult patient 05/01/2025 Travel 04/21/2025 Refill [facility] [address] [facility] [place] [address] Aaron Pisano MD Chronic bilateral low back pain without sciatica; Intractable vomiting with nausea 04/11/2025 Refill [facility] [address] [facility] [place] [address] Aaron Pisano MD 04/10/2025 Travel 04/10/2025 Telephone [facility] [address] [place] [address] Altagracia Mancilla RN 04/09/2025 11:15 AM EDT Office Visit [facility] [address] [place] [address] Aaron Pisano MD Primary hypertension (Primary Dx); COVID-19; Mild intermittent asthma without complication; Vasculitis (CMS/HCC); Leukocytoclastic vasculitis (CMS/HCC); Routine health maintenance; Acute cough 04/09/2025 Telephone [facility] [address] [place] [address] Aaron Pisano MD Appointment Request 04/09/2025 Travel 04/05/2025 Travel 04/05/2025 Telephone [facility] [address] [facility] [place] [address] Aaron Pisano MD Lab Order Request and Med Refill 04/05/2025 Telephone [facility] [address] [facility] [place] [address] Aaron Pisano MD 04/05/2025 Refill [facility] [address] [facility] [place] [address] Aaron Psiano MD Chronic midline low back pain without sciatica 04/05/2025 Refill [facility] [address] [place] [address] Altagracia Mancilla RN Chronic midline low back pain without sciatica 04/04/2025 Refill [facility] [address] [facility] [place] [address] Aaron Pisano MD Chronic midline low back pain without sciatica 04/03/2025 Travel 04/03/2025 Telephone [facility] [address] [facility] [place] [address] Aaron Pisano MD Med Refill 04/02/2025 Refill [facility] [address] [facility] [place] [address] Aaron Pisano MD 04/02/2025 Refill [facility] [address] [facility] [place] [address] Aaron Pisano MD Diarrhea in adult patient 04/02/2025 Refill [facility] [address] [facility] [place] [address] Aaron Pisano MD Chronic midline low back pain without sciatica; Diarrhea in adult patient 04/02/2025 Travel 03/29/2025 Refill [facility] [address] [facility] [place] [address] Aaron Pisano MD Smoker 03/13/2025 3:00 PM EDT Office Visit [facility] [address] [facility] [place] [address] Miki Sarkar, ROGELIO Open fracture of tooth, initial encounter (Primary Dx); Abrasion of teeth, localized; Bruxism, sleep-related 03/12/2025 Travel 03/08/2025 Refill [facility] [address] [facility] [place] [address] Aaron Pisano MD 03/05/2025 Refill [facility] [address] [facility] [place] [address] Aaron Pisano MD Chronic midline low back pain without sciatica 03/05/2025 Refill [facility] [address] [place] [address] Aaron Pisano MD Chronic midline low back pain without sciatica 03/05/2025 Refill [facility] [address] [place] [address] Aaron Pisano MD Chronic midline low back pain without sciatica 02/22/2025 Refill [facility] [address] [place] [address] Aaron Pisano MD Intractable vomiting with nausea; Chronic bilateral low back pain without sciatica 02/11/2025 9:00 AM EDT Office Visit [facility] [address] [place] [address] Racehl Gómez Excessive attrition of teeth, limited to enamel (Primary Dx) 02/11/2025 Refill [facility] [address] [place] [address] Aaron Pisano MD Primary hypertension; Vasculitis (CMS/HCC) 02/05/2025 Refill [facility] [address] [place] [address] Aaron Pisano MD Chronic midline low back pain without sciatica 02/05/2025 Refill [facility] [address] [place], [place] [id number] Fam Hartman MD Chronic midline low back pain without sciatica 02/02/2025 Orders Only [facility] External Provider, [facility] from Last 3 Months Immunizations Immunization Administration [...] Access Q2 Not on file 08/24/2024 Comments No Sex and Gender Information Value Date Recorded Sex Assigned at Female 06/07/2022 10:14 AM EDT Legal Sex Female 10:14 AM EDT Gender Identity Female 06/07/2022 10:14 AM EDT Sexual Orientation Straight 06/07/2022 10 :14 AM EDT Last Filed Vital Signs Vital Sign Reading Time Taken Comments Blood Pressure 130/90 04/09/2025 11:14 AM EDT Pulse 85 04/09/2025 11:14 AM EDT Temperature 37.1 C (98.8 F) 04/09/2025 11:14 AM EDT Respiratory Rate 20 04/09/2025 11:14 AM EDT Oxygen Saturation 98% 04/09/2025 11:14 AM EDT Inhaled Oxygen Concentration - - Weight 97.3 kg (214 lb 6.4 oz) 04/09/2025 11:14 AM EDT Height 149.9 cm (4' 11 ) 04/09/2025 11:14 AM EDT Body Mass Index 43.3 04/09/2025 11:14 AM EDT Plan of Treatment Upcoming Encounters Date Type Department Care Team (Late st Contact Info) Description 05/08/2025 11:00 AM EDT Office Visit [facility] [address] [place] [phone] Miki Sarkar DDS [address] [place] [address] 05/31/2025 11:30 AM EDT Clinical Support [facility] [address] [place] [address] Altagracia Mancilla RN [address] [place] [address] 08/29/2025 12:45 PM EST Office Visit [facility] [address] [place] [address] Zhanna Hernandez Health Maintenance Due Date Last Done Comments CT Colonography 1975 Colonoscopy 1977 Colorectal Cancer Screening 1977 FIT DNA/Cologuard 1977 FIT 1977 FOBT 1977 Sigmoidoscopy 1977 Family Planning (PISQ) 1992 Pap Smear 1998 Cervical Cancer Screening 2007 HPV/Cotest 2007 Dental X-Ray: Bitewings 01/24/2025 01/24/2024, 11/30 COVID-19 Vaccine ( season) 2025 11/15/2020 Influenza Vaccine (#1) 2025 Alcohol/Substance Use Screening 06/05/2025 06/05/2024 Depression Screening 06/05/2025 06/05/2024, 06/05/20 Dental Oral Exam 08/15/2025 02/11/2025, , 01/24/2024, Additional history exists Dental Prophylaxis 08/15/2025 02/11/2025, 1 09/26/2023, 01/24/2024, Additional history exists SDOH Screening 08/24/2025 08/24/2024 Dental X-Ray: Full Mouth 12/01/2025 11/30/2022 Disability Screening 01/07/2026 01/07/2025 Mammogram 02/20/2026 02/20/2025, 02/05, 01/26/2024, Additional history exists Tobacco Screening 04/09/2026 04/09/2025 Zoster Vaccines (1 of 2) 2027 Lipid [...] Pressure 130/90( 025 11:14 AM EDT) Giovanna Edwards PharmD Procedures Procedure Name Priority Date/Time Associated Diagnosis Comments POCT INFLUENZA A Routine 04/09/2025 1:41 PM EDT COVID-19 POCT INFLUENZA B Routine 04/09/2025 1:40 PM EDT COVID-19 POCT RAPID COVID ANTIGEN Routine 04/09/2025 1:39 PM EDT COVID-19 POCT RAPID STREP A Routine 04/09/2025 1: 27 PM EDT COVID-19 CASE PRESENTATION, DETAILED AND EXTENSIVE TREATMENT PLANNING [...] Relevant to Health Maintenance Results * POCT Influenza A manually resulted (04/09/2025 1:41 PM EDT) [facility] Rapid Influenza A Ag Negative Negative, Indeterminate QC Media Lot # [id number] Lot# Expiration Date Swab Nasopharyngeal structure / Unknown 04/09/2025 1:41 PM EDT us Aaron Harris MD POINT OF CARE TEST EN TER/EDIT ORDERABLES Final Result * POCT Influenza B manually resulted (04/09/2025 1:40 PM EDT) [facility] Rapid Influenza B Ag Negative Negative, Indeterminate QC Media Lot # [id number] Lot# Expiration Date Swab 04/09/2025 1:40 PM EDT us Aaron Harris MD POINT OF CARE TEST EN TER/EDIT ORDERABLES Final Result * POCT Rapid COVID Ag (04/09/2025 1:39 PM EDT) [facility] Rapid COVID Ag Positive QC Media Lot # [id number] Lot# Expiration Date Swab 04/09/2025 1:39 PM EDT us Aaron Harris MD POINT OF CARE TEST EN TER/EDIT ORDERABLES Final Result * POCT rapid strep A manually resulted (04/09/2025 1:27 PM EDT) Rapid Strep A Screen Negative Negative, None Detected QC Media Lot # [id number] Lot# Expiration Date [id number] Swab 04/09/2025 1:27 PM EDT Aaron Harris MD POINT OF CARE TEST EN TER/EDIT ORDERABLES Final Result * BI Mammogram Screening Tomosynthesis Bilateral (02/20/2025 2:30 PM EDT) Anatomical Region Laterality Modality Breast Bilateral Mammography 02/20/2025 2:30 PM EDT Narrative 03/01/2025 8:13 PM EDT [facility] [place] [address] Mammography Report Signed Patient: Zee Villanueva MR#: [id number] : 1975 Acct:[id number] Age/Sex: 49 / F ADM Date: 02/20/25 Loc: MAMMO Attending Dr: Aaron Carcamo MD Ordering Physician: Aaron Carcamo MD Resu lts: 1Negative Date of Service: 02/20/25 Follow Up: 1 Year From Orig inal Mammogram Procedure(s): MM tomosynthesis screening BI Accession Number(s): [id number] cc: Aaron Carcamo MD EXAMINATION: MM SCREENING [...] OV> 03/01/252009 DD/ 1430 TD/TT: 02/20/25 1510 Manager Maintenance: Procedure Note Donotuseinterpreter, Image - 03/01/2025 [facility] [address] [place] [address] Mammography Report Signed Patient: Zee Villanueva AMR#: [id number] : 1975Acct:[id number] Age/Sex: 49 / FADM Date: 02/20/25 Loc: HO.MAMMO Attending Dr: Aaron Carcamo MD Ordering Physician: Aaron Carcamo MDResu lts: 1Negative Date of Service: 02/20/25Follow Up: 1 Year From Orig inal Mammogram Procedure(s): MM tomosynthesis screening BI Accession Number(s): [id number] cc: Aaron Carcamo MD EXAMINATION: MM SCREENING [...] Shari Modi MD 03/01/2025 08:10 PM EDT Workstation: [id number] Dictated By: Shari Modi MD Signed By: <Electronically signed by Shari Modi MD in OV> 03/01/252009 DD/ 1430 TD/TT: 02/20/25 1510 Manager Maintenance: us Aaron Harris MD IMG BI PROCEDURES Satya lauren Result - Final * CT chest wo con - High Res (02/04/2025 7:46 PM EDT) Anatomical Region Laterality Modality Body, Chest Computed Tomogra phy 02/04/2025 7:46 PM EDT Narrative 02/04/2025 7:47 PM EDT [place] [address] CT Scan Report Signed Patient: Zee Villanueva MR#: [id number] : 1975 Acct:[id number] Age/Sex: 49 / F ADM Date: 02/02/25 Loc: HO.CT Attending Dr: Khushi Alfaro MD Ordering Physician: Khushi Alfaro MD Date of Service: 02/02/25 Procedure(s): CT chest wo con - High Res Accession Number(s): [id number] cc: Khushi Alfaro MD; SERGO PEARSON Alejandro J MD Report Number: [id number]: Total DLP = 557.00 mGy-cm CLINICAL HISTORY: [...] in OV> 02/04/251946 DD/ 45 TD/TT: 02/04/251945 Manager Maintenance: Procedure Note Donotuseinterpreter, Image - 02/04/[address] [place] [address] [address] Scan Report Signed Patient: Zee Villanueva AMR#: [id number] : 1975Acct:[id number] Age/Sex: 49 / FADM Date: 02/02/25 Loc: HO.CT Attending Dr: Khushi Alfaro MD Ordering Physician: Khushi Alfaro MD Date of Service: 02/02/25 Procedure(s): CT chest wo con - High Res Accession Number(s): [id number] cc: Khushi Alfaro MD; CAS PEARSON; Aaron Carcamo MD Report Number: [id number]: Total DLP = 557.00 mGy-cm CLINICAL HISTORY: [...] in OV> 02/04/251946 DD/ 45 TD/TT: 02/04/251945 Manager Maintenance: [facility] External Provider IMG CT PROCEDURES Final Result * Hepatitis Panel, General (12/28/2024 2:24 PM EDT) Hepatitis A IgM Nonreactive Nonreactive [facility] Comment:IgM antibodies to LUTHER V not detected; does not exclude earlyacute or recovered HAV infection. ~Hepatitis B Surface Antibody NONREACTIVE Nonreactive [facility] Comment:Nonreactive: < 8.00 mIU/mL Hepatitis B Core Antibody Nonreactive Nonreactive [facility] Hepatitis C Antibody Nonreactive Nonreactive [facility] Comment:Antibodies to HCV no t detected; does not exclude early acuteHCV infection. Hepatitis B Surface Ag Negative Negative [facility] 12/28/2024 2:24 PM EDT 12/28/2024 2:26 PM EDT Generic External Data Provider LAB BLOOD ORDERAB LES Final Result Performing Organization Address City/State/[facility] Co de Phone Number [facility] [address] [place] [phone] * (ABNORMAL) Lipid Panel, Standard (12/28/2024 2:24 PM EDT) Triglycerides 138 <150 mg/dL [facility] Comment:Desirable Triglyceri de: less than 150 mg/dLBorderline High Triglyceride 150-199 mg/dLHigh Triglyceride: 200-499 mg/dLVery High Triglyceride: greater than or equal to 5OO mg/dL Cholesterol 199 <200 mg/dL [facility] Comment:Desirable Cholestero l: less than 200 mg/dLBorderline High Cholesterol: 200-239 mg/dLHigh Cholesterol: greater than 239 mg/dL LDL Cholesterol Calculated 121(H) <100 mg/dL [facility] Comment:Desirable LDL: less than 100 mg/dLNear Optimal/Above Optimal LDL: 110- 129 mg/dLBorderline High LDL: 130-159 mg/dLHigh LDL: 160-189 mg/dLVery High LDL: greater than or equal to 190 mg/dL HDL Cholesterol 51 >40 mg/dL [facility] Comment:Desirable HDL: great er than 40 mg/dL Note: This HDL assay may give artificially low results in patients with liver disease. Blood Venous blood specimen / Unknown 12/28/2024 2:24 PM EDT 12/28/2024 2:26 PM EDT Aaron Harris MD LAB BLOOD ORDERABLES Final Result Performing Organization Address City/[facility]/ZIP Co de Phone Number [facility] [address] [place] [address] [phone] * HIV AB/AG (02/26/2020 1:03 PM EDT) [facility] HIV AG/AB NONREACTIVE NR FOUNDAT[facility] ON [...] of detection of this assay. The [employer] Tag Marker HIV Ag/Ab Combo assay result and supplemental assay results should be interpreted in conjunction with the patient's clinical presentation, history and other laboratory results. If the results are inconsistent with clinical evidence, additional testing is suggested to confirm the result. 02/26/2020 1:03 PM EDT Aaron Harris MD HISTORICAL/NON ORDERA BLE LABS Final Result Performing Organization Address City/[facility]/ZIP Co de Phone Number [facility] [address] from Last 3 Months or Most Recently Relevant to Health Maintenance Insurance [facility] C3 DENTAL-[facility] MEDICAID STAND ADULT 2L [place] [address] GENERIC TPL Care Teams Wool Hat Finisher Relationship Specialty Start Date End Date Aaron Pisano MD [address] [place] [address] PCP - General Internal Medicine 05/10/14 Antonietta Lim Senior Compensation AnalystNet Making Supervisor 09/18/24
--- OUTSIDE RECORDS SUMMARY | 2025-05-03 16:14 | XMS_ITS | Encounter Summary ---
Author Organization [employer] Address 75 [facility] 7t [place] [address] Care Team Providers Care Script Editor Name Role Phone Aaron Pisano MD Primary Care Provide r Reason for Visit * Reason Onset Date Comments Med Refill 04/02/2025 Encounter Details Date Type Department Care Team ([facility] st Contact Info) Description 04/02/2025 Refill [facility] MEDICINE [address] [place] [address] Aaron Pisano MD 230 [place] [address] Social History Tobacco Use Types Packs/Day Years [...] Description 05/08/2025 11:00 AM EDT Office Visit [facility] ADULT DENTAL [address] [place] [address] 94[address] Miki Sarkar DDS 230 [place] [address] 05/31/2025 11:30 AM EDT Clinical Support [facility] MEDICINE [address] [place] [address] Altagracia Mancilla, GRACIELA 505 [place] [address] 08/29/2025 12:45 PM EST Office Visit [facility] ADULT DENTAL [address] [place] [address] Zhanna Hernandez documented as of this encounter [...] documented as of this encounter Care Teams Script Editor Relationship Specialty Start Date End Date Aaron Pisano MD 230 [place] [address] PCP - General Internal Medicine 05/10/14 Antonietta Lim Scutcher TenderResident Care Director 09/18/24 documented as of this encounter
--- OUTSIDE RECORDS SUMMARY | 2025-05-03 16:14 | XMS_ITS | Encounter Summary ---
Author Organization [employer] Address 75 [facility] 7t [place] [address] Care Team Providers Care Furnace Charger Name Role Phone Aaron Pisano MD Primary Care Provide r Reason for Visit * Reason Onset Date Comments Med Refill 08/12/2024 Encounter Details Date Type Department Care Team ([facility] st Contact Info) Description 08/12/2024 Refill [facility] MEDICINE [address] [place] [address] Aaron Pisano MD 230 [place] [address] Smoker Social History Tobacco Use Types Packs/Day [...] Description 05/08/2025 11:00 AM EDT Office Visit [facility] ADULT DENTAL [address] [place] [address] 30[address] Miki Sarkar DDS 230 [place] [address] 05/31/2025 11:30 AM EDT Clinical Support [facility] MEDICINE [address] [place] [address] 69481 Altagracia Mancilla RN 505 [place] [address] 08/29/2025 12:45 PM EST Office Visit [facility] ADULT DENTAL 230 [place] [address] Zhanna Hernandez documented as of this encounter Goals Goal Patient Goal Type Associated Problems Recent Progress Patient-Stated? Author Blood Pressure < 140/90 Blood Pressure 130/90( 025 11:14 AM EDT) No Giovanna Banks PharmD documented as of this encounter Visit Diagnoses Diagnosis Smoker Tobacco use disorder documented in this encounter Additional Health Concerns Assessment Noted Time PHQ-9 Depression Total Score: 2 06/05/20 24 8:38 AM EDT documented as of this encounter Care Teams Furnace Charger Relationship Specialty Start Date End Date Aaron Pisano MD [address] [place] [address] PCP - General Internal Medicine 05/10/14 Antonietta Lim City Letter CarrierHeavy Equipment Engine Mechanic 09/18/24 documented as of this encounter
--- OUTSIDE RECORDS SUMMARY | 2025-05-03 16:14 | XMS_ITS | Encounter Summary ---
Author Organization [employer] Address 75 [facility] 7 [place] [address] Care Team Providers Care Dexigraph Operator Name Role Phone Aaron Pisano MD Primary Care Provide r Reason for Visit * Reason Onset Date Comments Med Refill 08/12/2024 Encounter Details Date Type Department Care Team ([facility] st Contact Info) Description 08/12/2024 Refill [facility] [address] [place] [address] Aaron Pisano MD 230 [place] [address] Social History Tobacco Use Types Packs/Day Years [...] Description 05/08/2025 11:00 AM EDT Office Visit [facility] [address] [place] [address] 25[address] Miki Sarkar DDS [address] [place] [address] 05/31/2025 11:30 AM EDT Clinical Support [facility] [address] [place] [address] 35195 Altagracia Mancilla RN 505 [place] [address] 08/29/2025 12:45 PM EST Office Visit [facility] [address] [place] [address] Zhanna Hernandez documented as of this encounter [...] documented as of this encounter Care Teams Dexigraph Operator Relationship Specialty Start Date End Date Aaron Pisano MD [address] [place] [address] PCP - General Internal Medicine 05/10/14 Antonietta Lim Child CareCollection Development Librarian 09/18/24 documented as of this encounter
--- OUTSIDE RECORDS SUMMARY | 2025-05-03 16:14 | XMS_ITS | Encounter Summary ---
Author Organization [employer] Address [address] [place] [address] 7 [place] [address] Care Team Providers Care Documentation Supervisor Name Role Phone Aaron Pisano MD Primary Care Provide r Reason for Visit * Reason Comments Med Refill Encounter Details Date Type Department Care Team (Late Contact Info) Description 04/18/2023 Refill [facility] 230 [place] [address] Aaron Pisano MD 230 [place] [address] Chronic bilateral low back pain without sciatica [...] Description 05/08/2025 11:00 AM EDT Office Visit [facility] ADULT DENTAL 230 [place] [address] Miki Sarkar DDS 230 [place] [address] 05/31/2025 11:30 AM EDT Clinical Support [facility] MEDICINE 230 [place] [address] Altagracia Mancilla, RN 505 [place] [address] 08/29/2025 12:45 PM EST Office Visit [facility] ADULT DENTAL 230 [place] [address] Zhanna Hernandez documented as of this encounter Goals Goal Patient Goal Type Associated Problems Recent Progress Patient-Stated? Author Blood Pressure < 140/90 Blood Pressure 130/90( 025 11:14 AM EDT) No Giovanna Banks PharmD documented as of this encounter Visit Diagnoses Diagnosis Chronic bilateral low back pain without sciatica documented in this encounter Care Teams Documentation Supervisor Relationship Specialty Start Date End Date Aaron Pisano MD 230 [place] [address] PCP - General Internal Medicine 05/10/14 Antonietta Lim Hand Zipper TrimmerMedical Accountant 09/18/24 documented as of this encounter
--- OUTSIDE RECORDS SUMMARY | 2025-05-03 16:14 | XMS_ITS | Encounter Summary ---
Author Organization [employer] Address 75 [facility] 7 [place] [address] Care Team Providers Care Sales Support Advisor Name Role Phone Aaron Pisano MD Primary Care Provide r Reason for Visit * Reason Onset Date Comments Med Refill 11/16/2022 Encounter Details Date Type Department Care Team ([facility] st Contact Info) Description 11/16/2022 Telephone [facility] [address] [place] [address] Aaron Pisano MD [address] [place] [address] Med Refill Social History Tobacco Use Types [...] med refill status Please contact pt at [phone] * Telephone Encounter - Natasha Jain - 11/30/2022 1:14 PM EDT Tc from pt requesting medication status. Please contact pt at [phone] * Telephone Encounter - Jenny Smith - 11/16/2022 4:36 PM EDT Tc from pt requesting med refill for medication oxyCODONE (Roxicodone) 5 MG immediate release tablet. documented in this encounter Plan of Treatment Upcoming Encounters Date Type Department Care Team (Late st Contact Info) Description 05/08/2025 11:00 AM EDT Office Visit [facility] ADULT DENTAL [address] [place] [address] 19180 Miki Sarkar DDS 230 [place] [address] 05/31/2025 11:30 AM EDT Clinical Support [facility] [address] [place] [address] 098[address] Altagracia Mancilla, RN 505 [place] [address] 08/29/2025 12:45 PM EST Office Visit [facility] ADULT DENTAL 230 [place] [address] Zhanna Hernandez documented as of this encounter Visit Diagnoses Not on filedocumented in this encounter Care Teams Sales Support Advisor Relationship Specialty Start Date End Date Aaron Pisano MD [address] [place] [address] 134[address] PCP - General Internal Medicine 05/10/14 Antonietta Lim Traveling Inventory AssociateMedia Specialist 09/18/24 documented as of this encounter
--- OUTSIDE RECORDS SUMMARY | 2025-05-03 16:14 | XMS_ITS | Encounter Summary ---
Author Organization [employer] Address 75 [facility] 7t [place] [address] Care Team Providers Care Optimization Consultant Name Role Phone Aaron Pisano MD Primary Care Provide r Reason for Visit * Reason Onset Date Comments Med Refill 04/03/2025 Encounter Details Date Type Department Care Team ([facility] Contact Info) Description 04/03/[address] [facility] MEDICINE [address] [place] [address] Aaron Pisano MD 230 [place] [address] Med Refill Social History Tobacco Use Types [...] immediate release tablet To be sent to: [facility] - [place], [place] - [address] [place] [address] documented in this encounter Plan of Treatment Upcoming Encounters Date Type Department Care Team ([facility] st Contact Info) Description 05/08/2025 11:00 AM EDT Office Visit [facility] ADULT DENTAL 230 [place] [address] Miki Sarkar DDS 230 [place] [address] 05/31/2025 11:30 AM EDT Clinical Support [facility] MEDICINE 230 [place] [address] Altagracia Mancilla, RN 505 [place] [address] 08/29/2025 12:45 PM EST Office Visit [facility] ADULT DENTAL 230 [place] [address] Zhanna Hernandez documented as of this encounter [...] documented as of this encounter Care Teams Optimization Consultant Relationship Specialty Start Date End Date Aaron Pisano MD 230 [place] [address] PCP - General Internal Medicine 05/10/14 Antonietta Lim Outsole CementerAdmissions Specialist 09/18/24 documented as of this encounter
--- OUTSIDE RECORDS SUMMARY | 2025-05-03 16:14 | XMS_ITS | Encounter Summary ---
Author Organization [employer] Address 75 [facility] 7t [place] [address] Care Team Providers Care Database Marketing Specialist Name Role Phone Aaron Pisano MD Primary Care Provide r Reason for Visit * Reason Comments Med Refill Encounter Details Date Type Department Care Team ([facility] st Contact Info) Description 01/30/2024 Refill [facility]INE 230 [place], [place] [phone] Aaron Pisano MD 230 [place], [place] [phone] Chronic midline low back pain without sciatica [...] 11:00 AM EDT Office Visit [facility] ADULT DENTAL [address] [place] [address] 96584 Miki Sarkar DDS [address] [place] [address] 05/31/2025 11:30 AM EDT Clinical Support [facility] MEDICINE [address] [place] [address] 17565 Altagracia Mancilla RN 505 [place] [address] 08/29/2025 12:45 PM EST Office Visit [facility] ADULT DENTAL [address] [place] [address] Zhanna Hernandez documented as of this encounter [...] documented as of this encounter Care Teams Database Marketing Specialist Relationship Specialty Start Date End Date Aaron Pisano MD [address] [place] [address] PCP - General Internal Medicine 05/10/14 Antonietta Lim Interactive ProducerStaff Pharmacist 09/18/24 documented as of this encounter
--- OUTSIDE RECORDS SUMMARY | 2025-05-03 16:14 | XMS_ITS | Encounter Summary ---
Author Organization [employer] Address 75 [facility] 7t [place] [address] Care Team Providers Care Hair Dresser Name Role Phone Aaron Pisano MD Primary Care Provide r Reason for Visit * Reason Comments Med Refill Encounter Details Date Type Department Care Team ([facility] st Contact Info) Description 07/07/2023 Refill [facility] 230 [place] [address] Aaron Pisano MD 230 [place] [address] Social History Tobacco Use Types Packs/Day Years Used Date Smoking Tobacco: Former Cigarettes Passive Smoke Exposure: Never Smokeless Tobacco: Never Alcohol Use Standard Drinks/Week Comments Never 0 (1 standard drink = 0.6 oz pur e alcohol) Housing Stability Answer Date Recorded What is your housing situation today? I do not have housing (Staying with others, in a hotel, in a usp, living outside on the street, on a [...] EDT Office Visit [facility] ADULT DENTAL [address] [place] [address] Miki Sarkar DDS 230 [place] [address] 05/31/2025 11:30 AM EDT Clinical Support [facility] [address] [place] [address] 88748 Altagracia Mancilla, RN 505 [place] [address] 08/29/2025 12:45 PM EST Office Visit [facility] ADULT DENTAL [address] [place] [address] Zhanna Hernandez documented as of this encounter Goals Goal Patient Goal Type Associated Problems Recent Progress Patient-Stated? Author Blood Pressure < 140/90 Blood Pressure 130/90( 025 11:14 AM EDT) No Giovanna Banks, PharmD documented as of this encounter Visit Diagnoses Not on filedocumented in this encounter Care Teams Hair Dresser Relationship Specialty Start Date End Date Aaron Pisano MD [address] [place] [address] PCP - General Internal Medicine 05/10/14 Antonietta Lim Electron Tube AssemblerShop Tailor Apprentice 09/18/24 documented as of this encounter
--- OUTSIDE RECORDS SUMMARY | 2025-05-03 16:14 | XMS_ITS | Encounter Summary ---
Author Organization [employer] Address 75 [facility] 7t [place] [address] Care Team Providers Care Director Cardiovascular Name Role Phone Aaron Pisano MD Primary Care Provide r Reason for Visit * Reason Comments Med Refill Encounter Details Date Type Department Care Team ([facility] st Contact Info) Description 07/04/2023 Refill [facility] MED & PEDS [address] [place], [place] [phone] Sumi Vang, ANP 230 [place] [address] Social History Tobacco Use Types Packs/Day Years [...] Description 05/08/2025 11:00 AM EDT Office Visit [facility] ADULT DENTAL [address] [place] [address] Miki Sarkar DDS 230 [place] [address] 05/31/2025 11:30 AM EDT Clinical Support [facility] MEDICINE [address] [place] [address] Altagracia Mancilla, RN 505 [place] [address] 08/29/2025 12:45 PM EST Office Visit [facility] ADULT DENTAL [address] [place] [address] Zhanna Hernandez documented as of this encounter Goals Goal Patient Goal Type Associated Problems Recent Progress Patient-Stated? Author Blood Pressure < 140/90 Blood Pressure 130/90( 025 11:14 AM EDT) No Giovanna Banks, PharmD documented as of this encounter Visit Diagnoses Not on filedocumented in this encounter Care Teams Director Cardiovascular Relationship Specialty Start Date End Date Aaron Pisano MD [address] [place] [address]598 PCP - General Internal Medicine 05/10/14 Antonietta Lim Reflector Driller And DeburrerAssistant Financial Accountant 09/18/24 documented as of this encounter
--- OUTSIDE RECORDS SUMMARY | 2025-05-03 16:14 | XMS_ITS | Encounter Summary ---
Author Organization [employer] Address 75 [facility] 7t [place] [address] Care Team Providers Care Maternity Floor Supervisor Name Role Phone Aaron Pisano MD Primary Care Provide r Reason for Visit * Reason Comments Med Refill Encounter Details Date Type Department Care Team ([facility] st Contact Info) Description 05/07/2024 Refill [facility] MEDICINE 230 [place] [address] Aaron Pisano MD 230 [place], [place] [phone] Chronic midline low back pain without sciatica [...] Description 05/08/2025 11:00 AM EDT Office Visit [facility] ADULT DENTAL [address] [place] [address] Miki Sarkar DDS [address] [place] [address] 05/31/2025 11:30 AM EDT Clinical Support [facility] MEDICINE [address] [place] [address] Altagracia Mancilla RN 505 [place] [address] 08/29/2025 12:45 PM EST Office Visit [facility] ADULT DENTAL [address] [place] [address] Zhanna Hernandez documented as of this encounter [...] documented as of this encounter Care Teams Maternity Floor Supervisor Relationship Specialty Start Date End Date Aaron Pisano MD [address] [place] [address] PCP - General Internal Medicine 05/10/14 Antonietta Lim Reception Centre ManagerSubway Train Operator 09/18/24 documented as of this encounter
--- OUTSIDE RECORDS SUMMARY | 2025-05-03 16:14 | XMS_ITS | Encounter Summary ---
Author Organization [employer] Address 75 [facility] 7t [place] [address] Care Team Providers Care Cigarette Making Machine Operator Name Role Phone Aaron Pisano MD Primary Care Provide r Reason for Visit * Reason Onset Date Comments Med Refill 08/02/2024 Encounter Details Date Type Department Care Team ([facility] Contact Info) Description 08/02/2024 Telephone [facility] MEDICINE [address] [place] [address] Aaron Pisano MD 230 [place] [address] Med Refill Social History Tobacco Use Types [...] Description 05/08/2025 11:00 AM EDT Office Visit [facility] ADULT DENTAL [address] [place] [address] 525[address] Miki Sarkar DDS 230 [place] [address] 05/31/2025 11:30 AM EDT Clinical Support [facility]INE 230 [place] [address] Altagracia Mancilla RN 505 [place] [address] 08/29/2025 12:45 PM EST Office Visit [facility] ADULT DENTAL 230 [place] [address] Zhanna Hernandez documented as of this encounter Goals Goal Patient Goal Type Associated Problems Recent Progress Patient-Stated? Author Blood Pressure < 140/90 Blood Pressure 130/90( 025 11:14 AM EDT) No Giovanna Banks, SohamD documented as of this encounter Visit Diagnoses Diagnosis Chronic midline low back pain without sciatica documented in this encounter Additional Health Concerns Assessment Noted Time PHQ-9 Depression Total Score: 2 06/05/20 24 8:38 AM EDT documented as of this encounter Care Teams Cigarette Making Machine Operator Relationship Specialty Start Date End Date Aaron Pisano MD [address] [place] [address] PCP - General Internal Medicine 05/10/14 Antonietta Lim Innovation ManagerSap Technical Architect 09/18/24 documented as of this encounter
--- OUTSIDE RECORDS SUMMARY | 2025-05-03 16:14 | XMS_ITS | Encounter Summary ---
Author Organization [employer] Address 75 [facility] 7t [place] [address] Care Team Providers Care Cloud Operations Engineer Name Role Phone Aaron Pisano MD Primary Care Provide r Reason for Visit * Reason Onset Date Comments Med Refill 06/01/2023 Encounter Details Date Type Department Care Team (Late st Contact Info) Description 06/01/2023 Refill [facility] MED & PEDS [address] [place], [place] [phone] Sumi Vang, ANP 230 [place] [address] Chronic midline low back pain without sciatica [...] Description 05/08/2025 11:00 AM EDT Office Visit [facility] ADULT DENTAL [address] [place] [address] Miki Sarkar DDS [address] [place] [address] 05/31/2025 11:30 AM EDT Clinical Support [facility] MEDICINE [address] [place] [address] Altagracia Mancilla, GRACIELA 505 [place] [address] 08/29/2025 12:45 PM EST Office Visit [facility] ADULT DENTAL [address] [place] [address] Zhanna Hernandez documented as of this encounter Goals Goal Patient Goal Type Associated Problems Recent Progress Patient-Stated? Author Blood Pressure < 140/90 Blood Pressure 130/90( 025 11:14 AM EDT) No Giovanna Banks, PharmD documented as of this encounter Visit Diagnoses Diagnosis Chronic midline low back pain without sciatica documented in this encounter Care Teams Cloud Operations Engineer Relationship Specialty Start Date End Date Aaron Pisano MD [address] [place] [address] PCP - General Internal Medicine 05/10/14 Antonietta Lim Sintering Press OperatorPhilosophy Lecturer 09/18/24 documented as of this encounter
--- OUTSIDE RECORDS SUMMARY | 2025-05-03 16:14 | XMS_ITS | Encounter Summary ---
Author Organization [employer] Address [address] [place] [address] 7 [place] [address] Care Team Providers Care Gray Tender Name Role Phone Aaron Pisano MD Primary Care Provide r Encounter Details Date Type Department Care Team (Latest Contact Info) Description 07/16/2019 Abstract [facility] CONVERSIONS Dental, Provider, DDS Social [...] Description 05/08/2025 11:00 AM EDT Office Visit [facility] ADULT DENTAL 230 [place] [address] Miki Sarkar DDS [address] [place] [address] 05/31/2025 11:30 AM EDT Clinical Support [facility] MEDICINE 230 [place] [address] Altagracia Mancilla RN 505 [place] [address] 08/29/2025 12:45 PM EST Office Visit [facility] ADULT DENTAL 230 [place] [address] Zhanna Hernandez documented as of this encounter Visit Diagnoses Not on filedocumented in this encounter Care Teams Gray Tender Relationship Specialty Start Date End Date Aaron Pisano MD 230 [place] [address] PCP - General Internal Medicine 05/10/14 Antonietta Lim Batterboard SetterTelephone Directory Distributor Driver 09/18/24 documented as of this encounter
--- OUTSIDE RECORDS SUMMARY | 2025-05-03 16:15 | XMS_ITS | Encounter Summary ---
Author Organization [employer] Address 75 [facility] 7t [place] [address] Care Team Providers Care Wire Web Worker Name Role Phone Aaron Pisano MD Primary Care Provide r Reason for Visit * Reason Onset Date Comments Med Refill 05/01/2025 Encounter Details Date Type Department Care Team ([facility] st Contact Info) Description 05/01/2025 Refill [facility] [address] [place] [address] Aaron Pisano MD 230 [place] [address] Social History Tobacco Use Types Packs/Day Years [...] 05/08/2025 11:00 AM EDT Office Visit [facility] ADULT DENTAL [address] [place] [address] Miki Sarkar DDS 230 [place] [address] 05/31/2025 11:30 AM EDT Clinical Support [facility] [address] [place] [address] Altagracia Mancilla, GRACIELA 505 [place] [address] 08/29/2025 12:45 PM EST Office Visit [facility] ADULT DENTAL [address] [place] [address] Zhanna Hernandez documented as of this encounter [...] documented as of this encounter Care Teams Wire Web Worker Relationship Specialty Start Date End Date Aaron Pisano MD 230 [place] [address] PCP - General Internal Medicine 05/10/14 Antonietta Lim Watch Repair TechnicianFiler Metal Patterns 09/18/24 documented as of this encounter
--- OUTSIDE RECORDS SUMMARY | 2025-05-03 16:15 | XMS_ITS | Encounter Summary ---
Author Organization [employer] Address 75 [facility] 7 [place] [address] Care Team Providers Care Wellness Nurse Rn Name Role Phone Aaron Pisano MD Primary Care Provide r Reason for Visit * Reason Onset Date Comments Med Refill 01/04/2025 Encounter Details Date Type Department Care Team (Late st Contact Info) Description 01/04/2025 Refill [facility] [address] [place] [address] Fam Hartman MD [address] [place] [address] Chronic midline low back pain without sciatica [...] 05/08/2025 11:00 AM EDT Office Visit [facility] ADULT DENTAL [address] [place] [address] Miki Sarkar DDS [address] [place] [address] 05/31/2025 11:30 AM EDT Clinical Support [facility] [address] [place] [address] Altagracia Mancilla, GRACIELA [address] [place] [address] 08/29/2025 12:45 PM EST Office Visit [facility]ULT [facility] [address] [place] [address] Zhanna Hernandez documented as of this encounter [...] documented as of this encounter Care Teams Wellness Nurse Rn Relationship Specialty Start Date End Date Aaron Pisano MD 230 [place] [address] PCP - General Internal Medicine 05/10/14 Antonietta Lim Cigar Packing ExaminerFocusing Machine Operator 09/18/24 documented as of this encounter
--- OUTSIDE RECORDS SUMMARY | 2025-05-03 16:15 | XMS_ITS | Encounter Summary ---
Author Organization [employer] Address 75 [facility] 7t [place] [address] Care Team Providers Care Junior Accounting Clerk Name Role Phone Aaron Pisano MD Primary Care Provide r Reason for Visit * Reason Onset Date Comments Med Refill 05/01/2025 Encounter Details Date Type Department Care Team ([facility] st Contact Info) Description 05/01/2025 Refill [facility] [address] [place] [address] Aaron Pisano MD [address] [place] [address] Diarrhea in adult patient Social History Tobacco [...] 11:00 AM EDT Office Visit [facility] ADULT DENTAL [address] [place] [address] Miki Sarkar DDS 230 [place] [address] 05/31/2025 11:30 AM EDT Clinical Support [facility] [address] [place] [address] Altagracia Mancilla, GRACIELA 505 [place] [address] 08/29/2025 12:45 PM EST Office Visit [facility] ADULT DENTAL [address] [place] [address] Zhanna Hernandez documented as of this encounter [...] documented as of this encounter Care Teams Junior Accounting Clerk Relationship Specialty Start Date End Date Aaron Pisano MD 230 [place] [address] PCP - General Internal Medicine 05/10/14 Antonietta Lim Supervisor Shipping RoomCreel Cleaner 09/18/24 documented as of this encounter
--- OUTSIDE RECORDS SUMMARY | 2025-05-03 16:15 | XMS_ITS | Encounter Summary ---
Author Organization [employer] Address 75 [facility] 7t [place] [address] Care Team Providers Care Special Agent Name Role Phone Aaron Pisano MD Primary Care Provide r Reason for Visit * Reason Onset Date Comments Appointment Request 04/09/2025 Encounter Details Date Type Department Care Team ([facility] Contact Info) Description 04/09/2025 Telephone [facility] [address] [place] [address] Aaron Pisano MD 230 [place] [address] Appointment Request Social History Tobacco Use Types Packs/Day Years [...] * Telephone Encounter - Deborah Lira - 04/09/2025 12:54 PM EDT Tc from pt requesting to reschedule apt on 04/12 , pt has covid Contact pt at [phone] documented in this encounter Plan of Treatment Upcoming Encounters Date Type Department Care Team (Late st Contact Info) Description 05/08/2025 11:00 AM EDT Office Visit [facility] ADULT DENTAL [address] [place] [address] Miki Sarkar DDS [address] [place] [address] 05/31/2025 11:30 AM EDT Clinical Support [facility] [address] [place] [address] Altagracia Mancilla, GRACIELA 505 [place] [address] 08/29/2025 12:45 PM EST Office Visit [facility] ADULT DENTAL [address] [place] [address] Zhanna Hernandez documented as of this encounter [...] documented as of this encounter Care Teams Special Agent Relationship Specialty Start Date End Date Aaron Pisano MD 230 [place] [address] PCP - General Internal Medicine 05/10/14 Antonietta Lim Director Of AcquisitionsProperty Claims Manager 09/18/24 documented as of this encounter
--- OUTSIDE RECORDS SUMMARY | 2025-05-03 16:15 | XMS_ITS | Encounter Summary ---
Author Organization [employer] Address [address] [facility] [address] 7t [place] [address] Care Team Providers Care Optomechanical Technician Name Role Phone Aaron Pisano MD Primary Care Provide r Reason for Visit * Reason Onset Date Comments Med Refill 05/02/2025 Encounter Details Date Type Department Care Team (Late st Contact Info) Description 05/02/2025 Refill [facility] & PEDS [address] [place], [place] [phone] Aaron Pisano MD 230 [place] [address] Chronic midline low back pain without sciatica [...] the past 12 months, has t he [employer], gas, oil or water company threatened to [...] Description 05/08/2025 11:00 AM EDT Office Visit [facility] ADULT DENTAL [address] [place] [phone] Miki Sarkar DDS 230 [place] [address] 05/31/2025 11:30 AM EDT Clinical Support [facility] MED[facility]INE [address] [place] [address] Altagracia Mancilla, GRACIELA 505 [place] [address] 08/29/2025 12:45 PM EST Office Visit [facility] ADULT D[facility]AL [address] [place] [address] Zhanna Hernandez documented as of this encounter [...] documented as of this encounter Care Teams Optomechanical Technician Relationship Specialty Start Date End Date Aaron Pisano MD [address] [place] [address] PCP - General Internal Medicine 05/10/14 Antonietta Lim Graphics Edit TechnicianClinical Data Coordinator 09/18/24 documented as of this encounter
--- OUTSIDE RECORDS SUMMARY | 2025-05-03 16:15 | XMS_ITS | Encounter Summary ---
Author Organization [employer] Address 75 [facility] 7 [place] [address] Care Team Providers Care Oxygen System Tester Name Role Phone Aaron Pisano MD Primary Care Provide r Reason for Visit * Reason Onset Date Comments Med Refill 02/05/2025 Encounter Details Date Type Department Care Team ([facility] st Contact Info) Description 02/05/2025 Refill [facility] MED [facility] PEDS [address] [place] [address] Fam Hartman MD [address] [place] [address] Chronic midline low back pain without sciatica [...] Description 05/08/2025 11:00 AM EDT Office Visit [facility] ADULT DENTAL [address] [place] [address] Miki Sarkar DDS [address] [place] [address] 05/31/2025 11:30 AM EDT Clinical Support [facility] MED[facility] [address] [place] [address] Altagracia Mancilla, GRACIELA 505 [place] [address] 08/29/2025 12:45 PM EST Office Visit [facility] ADULT DENTAL [address] [place] [address] Zhanna Hernandez documented as of this encounter [...] documented as of this encounter Care Teams Oxygen System Tester Relationship Specialty Start Date End Date Aaron Pisano MD [address] [place] [address] PCP - General Internal Medicine 05/10/14 Antonietta Lim Warehouse EngineerTax Manager 09/18/24 documented as of this encounter
--- OUTSIDE RECORDS SUMMARY | 2025-05-03 16:15 | XMS_ITS | Encounter Summary ---
Author Organization [employer] Address 75 [facility] 7t [place] [address] Care Team Providers Care Occupational Nurse Name Role Phone Aaron Pisano MD Primary Care Provide r Encounter Details Date Type Department Care Team ([facility] st Contact Info) Description 04/05/2025 Telephone [facility] MED[facility]INE [address] [place] [address] Aaron Pisano MD [address] [place] [address] Social History Tobacco Use Types Packs/Day Years [...] encounter Miscellaneous Notes * Telephone Encounter - Rosales Cardenas - 04/05/2025 11:15 AM EDT TC from pt reports back in December provider advised pt to get lab work done . documented in this encounter Plan of Treatment Upcoming Encounters Date Type Department Care Team (Late st Contact Info) Description 05/08/2025 11:00 AM EDT Office Visit [facility] ADULT DENTAL [address] [place] [address] Miki Sarkar DDS [address] [place] [address] 05/31/2025 11:30 AM EDT Clinical Support [facility] MED[facility] [address] [place] [address] Altagracia Mancilla, GRACIELA 505 [place] [address] 08/29/2025 12:45 PM EST Office Visit [facility] ADULT DENT[facility] [address] [place] [address] Zhanna Hernandez documented as of this encounter Goals Goal Patient Goal Type Associated Problems Recent Progress Patient-Stated? Author Blood Pressure < 140/90 Blood Pressure 130/90( 025 11:14 AM EDT) Giovanna Edwards PharmD documented as of this encounter Visit Diagnoses Not on filedocumented in this encounter Additional Health Concerns Assessment Noted Time PHQ-9 Depression Total Score: 2 06/05/20 24 8:38 AM EDT documented as of this encounter Care Teams Occupational Nurse Relationship Specialty Start Date End Date Aaron Pisano MD 230 [place] [address] PCP - General Internal Medicine 05/10/14 Antonietta Lim Salon StylistContract Analyst 09/18/24 documented as of this encounter
--- OUTSIDE RECORDS SUMMARY | 2025-05-03 16:15 | XMS_ITS | Encounter Summary ---
Author Organization [employer] Address 75 [facility] 7t [place] [address] Care Team Providers Care Card Player Name Role Phone Aaron Pisano MD Primary Care Provide r Encounter Details Date Type Department Care Team (Latest Contact Info) Description 05/01/2025 Travel Social History Tobacco Use Types Packs/Day [...] Description 05/08/2025 11:00 AM EDT Office Visit [facility] ADULT DENTAL [address] [place] [address] Miki Sarkar DDS [address] [place] [address] 05/31/2025 11:30 AM EDT Clinical Support [facility] MEDICINE [address] [place] [address] Altagracia Mancilla RN [address] [place] [address] 08/29/2025 12:45 PM EST Office Visit [facility] ADULT DENTAL [address] [place] [address] Zhanna Hernandez documented as of this encounter [...] documented as of this encounter Care Teams Card Player Relationship Specialty Start Date End Date Aaron Pisano MD [address] [place] [address] PCP - General Internal Medicine 05/10/14 Antonietta Lim Galvanizing Pot RunnerBiomass Power Plant Superintendent 09/18/24 documented as of this encounter
--- OUTSIDE RECORDS SUMMARY | 2025-05-03 16:15 | XMS_ITS | Encounter Summary ---
Author Organization [employer] Address 75 [facility] 7 [place] [address] Care Team Providers Care Brand Representative Name Role Phone Aaron Pisano MD Primary Care Provide r Reason for Visit * Reason Onset Date Comments Med Refill 01/07/2025 Encounter Details Date Type Department Care Team (Late st Contact Info) Description 01/07/[address] [facility] [address] [place] [address] Fma Hartman MD [address] [place] [address] Chronic midline low back pain without sciatica [...] Description 05/08/2025 11:00 AM EDT Office Visit [facility] ADULT DENTAL [address] [place] [address] Miki Sarkar DDS 230 [place] [address] 05/31/2025 11:30 AM EDT Clinical Support [facility] MED[facility] [address] [place] [address] Altagracia Mancilla, GRACIELA 505 [place] [address] 08/29/2025 12:45 PM EST Office Visit [facility] ADULT DENTAL [address] [place] [address] Zhanna Hernandez documented as of this encounter [...] documented as of this encounter Care Teams Brand Representative Relationship Specialty Start Date End Date Aaron Pisano MD 230 [place] [address] PCP - General Internal Medicine 05/10/14 Antonietta Lim Piercing ArtistSander Portable Machine 09/18/24 documented as of this encounter
--- OUTSIDE RECORDS SUMMARY | 2025-05-03 16:15 | XMS_ITS | Encounter Summary ---
Author Organization [employer] Address 75 [facility] 7t [place] [address] Care Team Providers Care Information Delivery Analyst Name Role Phone Aaron Pisano MD Primary Care Provide r Reason for Visit * Reason Onset Date Comments pt1 01/07/2025 Encounter Details Date Type Department Care Team ([facility] st Contact Info) Description 01/07/2025 Telephone [facility] MED[facility]INE [address] [place] [address] Aaron Pisano MD [address] [place] [address] pt1 Social History Tobacco Use Types Packs/Day [...] requirement. Please update information for address [address] [facility] [address] [facility] [address] documented in this encounter Plan of Treatment Upcoming Encounters Date Type Department Care Team (Late st Contact Info) Description 05/08/2025 11:00 AM EDT Office Visit [facility] ADULT DENTAL [address] [place] [address] Miki Sarkar DDS [address] [place] [address] 05/31/2025 11:30 AM EDT Clinical Support [facility] MED[facility]INE [address] [place] [address] Altagracia Mancilla RN [address] [place] [address] 08/29/2025 12:45 PM EST Office Visit [facility] ADULT DENTAL [address] [place] [address] Zhanna Hernandez documented as of this encounter [...] documented as of this encounter Care Teams Information Delivery Analyst Relationship Specialty Start Date End Date Aaron Pisano MD [address] [place] [address] PCP - General Internal Medicine 05/10/14 Antonietta Lim Bonsai TenderPostmaster Relief 09/18/24 documented as of this encounter
--- OUTSIDE RECORDS SUMMARY | 2025-05-03 16:15 | XMS_ITS | Encounter Summary ---
Author Organization [employer] Address [address] [facility] [address] 7t [place] [address] Care Team Providers Care Insurance Verify Rep Name Role Phone Aaron Pisano MD Primary Care Provide r Reason for Visit * Reason Comments Med Refill Encounter Details Date Type Department Care Team ([facility] st Contact Info) Description 05/02/2025 Refill [facility] [address] [place], [place] [phone] Aaron Pisano MD 230 [place], [place] [phone] Chronic midline low back pain without sciatica [...] Description 05/08/2025 11:00 AM EDT Office Visit [facility] [address] [place] [address] Miki Sarkar DDS 230 [place] [address] 05/31/2025 11:30 AM EDT Clinical Support [facility] [address] [place] [address] Altagracia Mancilla, GRACIELA [address] [place] [address] 08/29/2025 12:45 PM EST Office Visit [facility] [address] [place] [address] Zhanna Hernandez documented as of this encounter [...] documented as of this encounter Care Teams Insurance Verify Rep Relationship Specialty Start Date End Date Aaron Pisano MD [address] [place] [address] PCP - General Internal Medicine 05/10/14 Antonietta Lim Learning OfficerEmergency Department Clinician 09/18/24 documented as of this encounter
--- OUTSIDE RECORDS SUMMARY | 2025-05-03 16:15 | XMS_ITS | Encounter Summary ---
Author Organization [employer] Address 75 [facility] 7t [place] [address] Care Team Providers Care Home Manager Name Role Phone Aaron Pisano MD Primary Care Provide r Reason for Visit * Reason Comments Med Refill Encounter Details Date Type Department Care Team ([facility] st Contact Info) Description 04/05/2025 Refill [facility] MEDICINE [address] [place] [address] Aaron Pisano MD 230 [place], [place] [phone] Chronic midline low back pain without sciatica [...] Office Visit [facility] ADULT DENTAL [address] [place] [address] Miki Sarkar DDS 230 [place] [address] 05/31/2025 11:30 AM EDT Clinical Support [facility] MEDICINE [address] [place] [address] Altagracia Mancilla, GRACIELA 505 [place] [address] 08/29/2025 12:45 PM EST Office Visit [facility] ADULT DENTAL [address] [place] [address] Zhanna Hernandez documented as of this encounter [...] documented as of this encounter Care Teams Home Manager Relationship Specialty Start Date End Date Aaron Pisano MD [address] [place] [address] PCP - General Internal Medicine 05/10/14 Antonietta Lim Brand Protection ManagerCar And Yard Supervisor 09/18/24 documented as of this encounter
== END 2025-05-03 16:10 | disposition home or self-care (01) ==
LOC: HO.CT 16:09
PROVIDERS: PCP Internal Medicine; Visit Provider Internal Medicine
DX: J32.9 Chronic sinusitis, unspecified (principal); J30.9 Allergic rhinitis, unspecified; R05.9 Cough, unspecified
CPT/HCPCS: 70486

== ENCOUNTER → 2025-05-03 16:11 | Outpatient (BNV) | payer MEDICAID, SELFPAY | PROVIDERS: PCP Internal Medicine; Visit Provider Radiology Diagnostic Radiology | DX: J32.9 Chronic sinusitis, unspecified (principal) | CPT/HCPCS: 70486 ==

== ENCOUNTER 2025-05-08 12:22 | Outpatient (REF) | payer MEDICAID, SELFPAY ==
--- OUTSIDE RECORDS SUMMARY | 2025-05-08 11:00 | XMS_ITS | Encounter Summary ---
Author Organization [employer] Address 75 [facility] 7t [place] [address] Care Team Providers Care Assistant Guest Services Manager Name Role Phone Aaron Pisano MD Primary Care Provide r Reason for Visit * Reason Comments Filling Tooth #8 Patient sta lauren that I'm here for a filling. Chart was check for a procedure, there was nothing in the treatment plan for tooth #8 since the last visit. Encounter Details Date Type Department Care Team (Late st Contact Info) Description 05/08/2025 11:00 AM EDT Office Visit [facility] ADULT DENTAL [address] [place] [address] Miki Sarkar, DDS [address] [place] [address] Excessive attrition of teeth (Primary Dx) Social History Tobacco Use Types Packs/Day Years [...] housing situation today? I have ellaenoch luna 08/24/[address] you [...] Sign Reading Time Taken Comments Blood Pressure 110/68 05/08/2025 11:12 AM EDT Pulse - - Temperature - - Respiratory Rate - - Oxygen Saturation - - Inhaled Oxygen Concentration - - Weight - - Height - - Body Mass Index - - documented in this encounter Progress Notes * Miki Sarkar DDS - 05/08/2025 11:00 AM EDT Composite Yazidism Tooth Number and Surface: #8 ML Procedure: Composite Resin Yazidism Medical History: Reviewed and updated Procedural protocol followed: Procedure: Composite Resin Yazidism 2 (surfaces) Local Anesthesia: Infiltration of LOCAL ANESTHESIA: Lidocaine 2% with 1:100,000 epinephrine Number of carpules: 1 Method used Local Infiltration Isolation achieved via cotton rolls and suction. Cavity Preparation: Using a high-speed handpiece and appropriate carbide burs, the fracture was shaped to match the natural anatomy of the tooth, and the margins were smoothened. Etch and Bonding: The prepared cavity was etched using 37% phosphoric acid. The etched surfaces were rinsed thoroughly and dried with air. A customs brokerage agent was applied to the prepared surfaces and was cured using a light-curing unit. Composite Placement: Shades of composite resin: A3.5 Finishing and Polishing: After final light-curing of the last layer, the shinto was finished using fine-grit latanya burs and polished to achieve a smooth and shiny surface. 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 Patient states that she has implemented previous advice and purchased a mouth guard. Patient left the chair satisfied Next visit: Recall maintenance Dentist: Leonela Abraham DA: Ingrid Mitchell documented in this encounter Plan of Treatment Upcoming Encounters Date Type Department Care Team (Late st Contact Info) Description 05/08/2025 2:40 PM EDT Office Visit [facility] [address] [place] [address] 05/31/2025 11:30 AM EDT Clinical Support [facility] MEDICINE [address] [place] [address] Altagracia Mancilla RN 505 [place] [address] 08/29/2025 12:45 PM EST Office Visit [facility] ADULT DENTAL [address] [place] [address] Zhanna Hernandez documented as of this encounter Goals Goal Patient Goal Type Associated Problems Recent Progress Patient-Stated? Author Blood Pressure < 140/90 Blood Pressure 110/68( 025 11:12 AM EDT) No Giovanna Banks, Carleen documented as of this encounter Procedures Procedure Name Priority Date/Time Associated Diagnosis Comments 8 ML RESIN-BASED COMPOSITE - 2 SURF, ANTERIOR Routine 05/08/2025 11:00 AM EDT documented in this encounter Visit Diagnoses Diagnosis Excessive attrition of teeth- Primary Excessive attrition of teeth, unspecified documented in this encounter Additional Health Concerns Assessment Noted Time PHQ-9 Depression Total Score: 2 06/05/20 8:38 AM EDT documented as of this encounter Care Teams Assistant Guest Services Manager Relationship Specialty Start Date End Date Aaron Pisano MD [address] [place] [address] PCP - General Internal Medicine 05/10/14 Antonietta Lim Electric Golf Cart RepairerBeater Lead 09/18/24 documented as of this encounter
--- OUTSIDE RECORDS SUMMARY | 2025-05-08 13:48 | XMS_ITS | Encounter Summary ---
Author Organization [employer] Address 75 [facility] 7t [place] [address] Care Team Providers Care Marketing Engineer Name Role Phone Aaron Pisano MD Primary Care Provide r Reason for Visit * Reason Comments Med Refill Encounter Details Date Type Department Care Team ([facility] Contact Info) Description 02/18/2023 Refill [facility] MEDICINE [address] [place] [address] Aaron Pisano MD [address] [place] [address] [phone] Social History Tobacco Use Types Packs/Day Years [...] Encounters Date Type Department Care Team ([facility] Contact Info) Description 05/08/2025 2:40 PM EDT Office Visit [facility] [address] [place] [address] [phone] 05/31/2025 11:30 AM EDT Clinical Support [facility] MEDICINE [address] [place] [address] Altagracia Mancilla, GRACIELA [address] [place] [address] 08/29/2025 12:45 PM EST Office Visit [facility] ADULT DENTAL [address] [place] [address] Zhanna Hernandez documented as of this encounter Visit Diagnoses Not on filedocumented in this encounter Care Teams Marketing Engineer Relationship Specialty Start Date End Date Aaron Pisano MD 230 [place] [address] PCP - General Internal Medicine 05/10/14 Antonietta Lim Supervising BailiffChefs 09/18/24 documented as of this encounter
--- OUTSIDE RECORDS SUMMARY | 2025-05-08 13:48 | XMS_ITS | Encounter Summary ---
Author Organization [employer] Address 75 [facility] 7t [place] [address] Care Team Providers Care Manager Appointment Name Role Phone Aaron Pisano MD Primary Care Provide r Reason for Visit * Reason Comments Med Refill Encounter Details Date Type Department Care Team ([facility] st Contact Info) Description 04/04/2025 Refill [facility] MED[facility]INE [address] [place] [address] Aaron Pisano MD 230 [place], [place] [phone] Chronic midline low back pain without sciatica [...] Description 05/08/2025 2:40 PM EDT Office Visit [facility] W[facility] [address] [place] [address] 05/31/2025 11:30 AM EDT Clinical Support [facility] MEDICINE [address] [place] [address] 350[address] Altagracia Mancilla RN 505 [place] [address] 08/29/2025 12:45 PM EST Office Visit [facility] ADULT DENTAL [address] [place] [address] Zhanna Hernandez documented as of this encounter Goals Goal Patient Goal Type Associated Problems Recent Progress Patient-Stated? Author Blood Pressure < 140/90 Blood Pressure 110/68( 025 11:12 AM EDT) No Giovanna Banks PharmD documented as of this encounter Visit Diagnoses Diagnosis Chronic midline low back pain without sciatica documented in this encounter Additional Health Concerns Assessment Noted Time PHQ-9 Depression Total Score: 2 06/05/20 24 8:38 AM EDT documented as of this encounter Care Teams Manager Appointment Relationship Specialty Start Date End Date Aaron Pisano MD [address] [place] [address] PCP - General Internal Medicine 05/10/14 Antonietta Lim Incubator Machine OperatorLooping Machine Operator 09/18/24 documented as of this encounter
--- OUTSIDE RECORDS SUMMARY | 2025-05-08 13:48 | XMS_ITS | Encounter Summary ---
Author Organization [employer] Address [address] [facility] 7t [place] [address] Care Team Providers Care Tar Pot Man Name Role Phone Aaron Pisano MD Primary Care Provide r Reason for Visit * Reason Comments Med Refill Encounter Details Date Type Department Care Team ([facility] st Contact Info) Description 10/08/2024 Refill [facility] MEDICINE 230 [place] [address] Aaron Pisano MD 230 [place], [place] [phone] Diarrhea in adult patient; Chronic midline low [...] Description 05/08/2025 2:40 PM EDT Office Visit [facility] [address] [place] [address] 05/31/2025 11:30 AM EDT Clinical Support [facility] MEDICINE [address] [place] [address] 13099 Altagracia Mancilla RN 505 [place], [place] [phone] 08/29/2025 12:45 PM EST Office Visit [facility] ADULT DENTAL [address] [place] [address] Zhanna Hernandez documented as of this encounter [...] documented as of this encounter Care Teams Tar Pot Man Relationship Specialty Start Date End Date Aaron Pisano MD [address] [place] [address] PCP - General Internal Medicine 05/10/14 Antonietta Lim Platform Mill SupervisorCrop And Soil Technician 09/18/24 documented as of this encounter
--- OUTSIDE RECORDS SUMMARY | 2025-05-08 13:48 | XMS_ITS | Encounter Summary ---
Author Organization [employer] Address 75 [facility] 7t [place] [address] Care Team Providers Care Senior Publications Specialist Name Role Phone Aaron Pisano MD Primary Care Provide r Reason for Visit * Reason Comments Med Refill Encounter Details Date Type Department Care Team (Late Contact Info) Description 03/15/2023 Refill [facility] MEDICINE [address] [place] [address] Aaron Pisano MD [address] [place] [address] Smoker Social History Tobacco Use Types Packs/Day [...] Care Team (Late Contact Info) Description 05/08/2025 2:40 PM EDT Office Visit [facility] WALK[facility]IN CENTER [address] [place] [address] [phone] 05/31/2025 11:30 AM EDT Clinical Support [facility] MEDICINE [address] [place] [address] [phone] Altagracia Mancilla RN [address] [place] [address] 08/29/2025 12:45 PM EST Office Visit [facility] ADULT DENTAL 230 [place] [address] Zhanna Hernandez documented as of this encounter Visit Diagnoses Diagnosis Smoker Tobacco use disorder documented in this encounter Care Teams Senior Publications Specialist Relationship Specialty Start Date End Date Aaron Pisano MD 230 [place] [address] PCP - General Internal Medicine 05/10/14 Antonietta Lim Project Manager Process DevelopmentStripping Shovel Oiler 09/18/24 documented as of this encounter
--- OUTSIDE RECORDS SUMMARY | 2025-05-08 13:48 | XMS_ITS | Encounter Summary ---
Author Organization [employer] Address 75 [facility] 7t [place] [address] Care Team Providers Care Floral Assistant Name Role Phone Aaron Pisano MD Primary Care Provide r Reason for Visit * Reason Onset Date Comments Med Refill 04/02/2025 Encounter Details Date Type Department Care Team ([facility] st Contact Info) Description 04/02/2025 Refill [facility] MEDICINE 230 [place] [address] Aaron Pisano MD 230 [place] [address] Diarrhea in adult patient Social History Tobacco [...] Description 05/08/2025 2:40 PM EDT Office Visit [facility] [address] [place] [address] 05/31/2025 11:30 AM EDT Clinical Support [facility] MEDICINE [address] [place] [address] Altagracia Mancilla, GRACIELA 505 [place] [address] 08/29/2025 12:45 PM EST Office Visit [facility] ADULT DENTAL [address] [place] [address] Zhanna Hernandez documented as of this encounter [...] documented as of this encounter Care Teams Floral Assistant Relationship Specialty Start Date End Date Aaron Pisano MD [address] [place] [address] PCP - General Internal Medicine 05/10/14 Antonietta Lim Watcher Lookout TowerUtilities Equipment Repairer 09/18/24 documented as of this encounter
--- OUTSIDE RECORDS SUMMARY | 2025-05-08 13:48 | XMS_ITS | Encounter Summary ---
Author Organization [employer] Address 75 [facility] 7t [place] [address] Care Team Providers Care Data Administrator Name Role Phone Aaron Pisano MD Primary Care Provide r Reason for Visit * Reason Comments Med Refill Encounter Details Date Type Department Care Team ([facility] st Contact Info) Description 03/05/2025 Refill [facility] 230 [place] [address] Aaron Pisano MD 230 [place], [place] [phone] Chronic midline low back pain without sciatica [...] PM EDT Office Visit [facility] W[facility] [address] [place] [address] 05/31/2025 11:30 AM EDT Clinical Support [facility] MEDICINE [address] [place] [address] 63[address] Altagracia Mancilla RN 505 [place] [address] 08/29/2025 12:45 PM EST Office Visit [facility] ADULT DENTAL [address] [place] [address] 94[address] Zhanna Hernandez documented as of this encounter [...] documented as of this encounter Care Teams Data Administrator Relationship Specialty Start Date End Date Aaron Pisano MD [address] [place] [address] PCP - General Internal Medicine 05/10/14 Antonietta Lim Retirement ConsultantRestaurant Crew 09/18/24 documented as of this encounter
--- OUTSIDE RECORDS SUMMARY | 2025-05-08 13:48 | XMS_ITS | Encounter Summary ---
Author Organization [employer] Address 75 [facility] 7t [place] [address] Care Team Providers Care Street Car Inspector Name Role Phone Aaron Pisano MD Primary Care Provide r Reason for Visit * Reason Comments Med Refill Encounter Details Date Type Department Care Team ([facility] st Contact Info) Description 01/30/2024 Refill [facility] 230 [place], [place] [phone] Aaron Pisano MD 230 [place], [place] [phone] Chronic midline low back pain without sciatica [...] Description 05/08/2025 2:40 PM EDT Office Visit [facility] WALK[facility] [address] [place] [address] 05/31/2025 11:30 AM EDT Clinical Support [facility] MEDICINE [address] [place] [address] Altagracia Mancilla RN 505 [place] [address] 08/29/2025 12:45 PM EST Office Visit [facility] ADULT DENTAL [address] [place] [phone] Zhanna Hernandez documented as of this encounter [...] documented as of this encounter Care Teams Street Car Inspector Relationship Specialty Start Date End Date Aaron Pisano MD [address] [place] [address] PCP - General Internal Medicine 05/10/14 Antonietta Lim Manager MaterialEngraver Pantograph 09/18/24 documented as of this encounter
--- OUTSIDE RECORDS SUMMARY | 2025-05-08 13:48 | XMS_ITS | Clinical Summary ---
Author Organization [facility] Address [facility] [place] [address] Care Team Providers Care Human Factors Specialist Name Role Phone None Primary Care Provider [...] Influenza standard series) 04/08/2025 Insurance MEDICAID MANAGED [place] Care Teams Human Factors Specialist Relationship Specialty Start Date End Date None None PCP - General 02/10/20
--- OUTSIDE RECORDS SUMMARY | 2025-05-08 13:48 | XMS_ITS | Encounter Summary ---
Author Organization [employer] Address 75 [facility] 7 [place] [address] Care Team Providers Care Public Affairs Manager Name Role Phone Aaron Pisano MD Primary Care Provide r Reason for Visit * Reason Onset Date Comments Med Refill 11/16/2022 Encounter Details Date Type Department Care Team ([facility] st Contact Info) Description 11/16/2022 Telephone [facility] MEDICINE [address] [place] [address] Aaron Pisano MD [address] [place] [address] 48[address] Med Refill Social History Tobacco Use Types [...] med refill status Please contact pt at [phone] * Telephone Encounter - Natasha Jain - 11/30/2022 1:14 PM EDT Tc from pt requesting medication status. Please contact pt at [phone] * Telephone Encounter - Jenny Smith - 11/16/2022 4:36 PM EDT Tc from pt requesting med refill for medication oxyCODONE (Roxicodone) 5 MG immediate release tablet. documented in this encounter Plan of Treatment Upcoming Encounters Date Type Department Care Team (Late st Contact Info) Description 05/08/2025 2:40 PM EDT Office Visit [facility] WALK-IN CENTER [address] [place] [address] 113[address] 05/31/2025 11:30 AM EDT Clinical Support [facility] MEDICINE [address] [place] [address] 55986 Altagracia Mancilla RN 505 [place] [address] 08/29/2025 12:45 PM EST Office Visit [facility] ADULT DENTAL [address] [place] [address] 8[address] Zhanna Hernandez documented as of this encounter Visit Diagnoses Not on filedocumented in this encounter Care Teams Public Affairs Manager Relationship Specialty Start Date End Date Aaron Pisano MD [address] [place] [address] 26269 PCP - General Internal Medicine 05/10/14 Antonietta Lim Childhood Development TeacherFiber Analyst 09/18/24 documented as of this encounter
--- OUTSIDE RECORDS SUMMARY | 2025-05-08 13:48 | XMS_ITS | Encounter Summary ---
Author Organization [employer] Address 75 [facility] 7t [place] [address] Care Team Providers Care Travel Registered Nurse Icu Name Role Phone Aaron Pisano MD Primary Care Provide r Reason for Visit * Reason Onset Date Comments Med Refill 11/07/2024 Encounter Details Date Type Department Care Team ([facility] st Contact Info) Description 11/07/2024 Refill [facility] MEDICINE [address] [place] [address] Aaron Pisano MD 230 [place] [address] Chronic midline low back pain without sciatica; [...] the past 12 months, has t he [employer], gas, oil or water company threatened to [...] Description 05/08/2025 2:40 PM EDT Office Visit [facility] WALK-IN CENTER [address] [place] [address] 05/31/2025 11:30 AM EDT Clinical Support [facility] MEDICINE [address] [place] [address] 47[address] Altagracia Mancilla RN 505 [place] [address] 08/29/2025 12:45 PM EST Office Visit [facility] ADULT DENTAL [address] [place] [address] Zhanna Hernandez documented as of this encounter Goals Goal Patient Goal Type Associated Problems Recent Progress Patient-Stated? Author Blood Pressure < 140/90 Blood Pressure 110/68( 025 11:12 AM EDT) No Giovanna Banks, SohamD documented as of this encounter Visit Diagnoses Diagnosis Chronic midline low back pain without sciatica Diarrhea in adult patient documented in this encounter Additional Health Concerns Assessment Noted Time PHQ-9 Depression Total Score: 2 06/05/20 24 8:38 AM EDT documented as of this encounter Care Teams Travel Registered Nurse Icu Relationship Specialty Start Date End Date Aaron Pisano MD [address] [place] [address]62 PCP - General Internal Medicine 05/10/14 Antonietta Lim Clarifying Plant OperatorPalm Gatherer 09/18/24 documented as of this encounter
--- OUTSIDE RECORDS SUMMARY | 2025-05-08 13:48 | XMS_ITS | Encounter Summary ---
Author Organization [employer] Address 75 [facility] 7t [place] [address] Care Team Providers Care Logistics Administrator Name Role Phone Aaron Pisano MD Primary Care Provide r Reason for Visit * Reason Onset Date Comments Reschedule 03/01/2024 Encounter Details Date Type Department Care Team ([facility] st Contact Info) Description 03/01/2024 Telephone [facility] MEDICINE [address] [place] [address] Aaron Pisano MD 230 [place] [address] Reschedule Social History Tobacco Use Types Packs/Day [...] a call back in order to r/s SEAL SKINNER appt documented in this encounter Plan of Treatment Upcoming Encounters Date Type Department Care Team (Late st Contact Info) Description 05/08/2025 2:40 PM EDT Office Visit [facility] WALK[facility]IN CENTER [address] [place] [address] 05/31/2025 11:30 AM EDT Clinical Support [facility] MEDICINE [address] [place] [address] 53586 Altagracia Mancilla RN 505 [place] [address] 08/29/2025 12:45 PM EST Office Visit [facility] ADULT DENTAL [address] [place] [address] Zhanna Hernandez documented as of this encounter [...] documented as of this encounter Care Teams Logistics Administrator Relationship Specialty Start Date End Date Aaron Pisano MD 230 [place] [address] PCP - General Internal Medicine 05/10/14 Antonietta Lim Automation Machine OperatorPeanut Salter 09/18/24 documented as of this encounter
--- OUTSIDE RECORDS SUMMARY | 2025-05-08 13:48 | XMS_ITS | Encounter Summary ---
Author Organization [employer] Address 75 [facility] 7t [place] [address] Care Team Providers Care Administrative Project Coordinator Name Role Phone Aaron Pisano MD Primary Care Provide r Reason for Visit * Reason Onset Date Comments Med Refill 03/05/2025 Encounter Details Date Type Department Care Team ([place] [facility] st Contact Info) Description 03/05/2025 Refill [facility] MEDICINE 230 [place] [address] Aaron Pisano MD [address] [place] [address] Chronic midline low back pain without sciatica [...] Description 05/08/2025 2:40 PM EDT Office Visit [facility] WALK[facility]IN CENTER [address] [place] [address] 05/31/2025 11:30 AM EDT Clinical Support [facility] MEDICINE [address] [place] [address] 31942 Altagracia Mancilla RN 505 [place] [address] 08/29/2025 12:45 PM EST Office Visit [facility] ADULT DENTAL [address] [place] [address] 75[address] Zhanna Hernandez documented as of this encounter [...] documented as of this encounter Care Teams Administrative Project Coordinator Relationship Specialty Start Date End Date Aaron Pisano MD [address] [place] [address] PCP - General Internal Medicine 05/10/14 Antonietta Lim Energy Conservation EngineerCertified Court/Medical Interpreter 09/18/24 documented as of this encounter
--- OUTSIDE RECORDS SUMMARY | 2025-05-08 13:48 | XMS_ITS | Encounter Summary ---
Author Organization [employer] Address 75 [facility] 7t [place] [address] Care Team Providers Care Software Product Manager Name Role Phone Aaron Pisano MD Primary Care Provide r Reason for Visit * Reason Onset Date Comments Med Refill 04/02/2025 Encounter Details Date Type Department Care Team ([facility] st Contact Info) Description 04/02/2025 Refill [facility] MEDICINE [address] [place] [address] Aaron Pisano MD 230 [place] [address] Social History Tobacco Use Types Packs/Day Years [...] Description 05/08/2025 2:40 PM EDT Office Visit [facility] [address] [place] [address] 05/31/2025 11:30 AM EDT Clinical Support [facility] MEDICINE [address] [place] [address] 78186 Altagracia Mancilla RN 505 [place] [address] 08/29/2025 12:45 PM EST Office Visit [facility] ADULT DENTAL [address] [place] [address] 18[address] Zhanna Hernandez documented as of this encounter Goals Goal Patient Goal Type Associated Problems Recent Progress Patient-Stated? Author Blood Pressure < 140/90 Blood Pressure 110/68( 025 11:12 AM EDT) No Giovanna Banks PharmD documented as of this encounter Visit Diagnoses Not on filedocumented in this encounter Additional Health Concerns Assessment Noted Time PHQ-9 Depression Total Score: 2 10/29/20 24 8:38 AM EDT documented as of this encounter Care Teams Software Product Manager Relationship Specialty Start Date End Date Aaron Pisano MD [address] [place] [address]73 PCP - General Internal Medicine 05/10/14 Antonietta Lim Offal TrimmerCylinder Machine Operator 09/18/24 documented as of this encounter
--- OUTSIDE RECORDS SUMMARY | 2025-05-08 13:48 | XMS_ITS | Encounter Summary ---
Author Organization [employer] Address 75 [facility] 7t [place] [address] Care Team Providers Care Correctional Food Service Supervisor Name Role Phone aAron Pisano MD Primary Care Provide r Reason for Visit * Reason Onset Date Comments Med Refill 04/03/2025 Encounter Details Date Type Department Care Team ([facility] Contact Info) Description 04/03/2025 Telephone [facility] MEDICINE [address] [place] [address] Aaron Pisano MD 230 [place] [address] Med Refill Social History Tobacco Use Types [...] immediate release tablet To be sent to: [facility] - [place], [place] - [address] [place] [address] documented in this encounter Plan of Treatment Upcoming Encounters Date Type Department Care Team ([facility] st Contact Info) Description 05/08/2025 2:40 PM EDT Office Visit [facility]IN [facility] [address] [place] [address] 05/31/2025 11:30 AM EDT Clinical Support [facility] MEDICINE [address] [place] [address] 88189 Altagracia Mancilla RN 505 [place] [address] 08/29/2025 12:45 PM EST Office Visit [facility] ADULT DENTAL 230 [place] [address] Zhanna Hernandez documented as of this encounter [...] documented as of this encounter Care Teams Correctional Food Service Supervisor Relationship Specialty Start Date End Date Aaron Pisano MD 230 [place] [address] PCP - General Internal Medicine 05/10/14 Antonietta Lim Repair SpecialistLead Sprinkler 09/18/24 documented as of this encounter
--- OUTSIDE RECORDS SUMMARY | 2025-05-08 13:48 | XMS_ITS | Encounter Summary ---
Author Organization [employer] Address 75 [facility] 7t [place] [address] Care Team Providers Care Engine Service Repairer Name Role Phone Aaron Pisano MD Primary Care Provide r Reason for Visit * Reason Onset Date Comments Med Refill 11/16/2022 Encounter Details Date Type Department Care Team ([facility] st Contact Info) Description 11/16/2022 Telephone [facility] MEDICINE [address] [place] [address] Aaron Pisano MD [address] [place] [address] Med Refill Social History Tobacco Use Types [...] MG immediate release tablet Please sent to [facility] - [place], [place] - [address] [place] [address] documented in this encounter Plan of Treatment Upcoming Encounters Date Type Department Care Team (Late st Contact Info) Description 05/08/2025 2:40 PM EDT Office Visit [facility] WALK-IN CENTER 230 [place] [address] 05/31/2025 11:30 AM EDT Clinical Support [facility] MEDICINE [address] [place] [address] Altagracia Mancilla RN 505 [place] [address] 08/29/2025 12:45 PM EST Office Visit [facility] ADULT DENTAL 230 [place] [address] Zhanna Hernandez documented as of this encounter Visit Diagnoses Not on filedocumented in this encounter Care Teams Engine Service Repairer Relationship Specialty Start Date End Date Aaron Pisano MD [address] [place] [place] [address] PCP - General Internal Medicine 05/10/14 Antonietta Lim Suede CleanerHome Health Travel Pt 09/18/24 documented as of this encounter
--- OUTSIDE RECORDS SUMMARY | 2025-05-08 13:48 | XMS_ITS | Encounter Summary ---
Author Organization [employer] Address [address] [facility] 7t [place] [address] Care Team Providers Care Architecture Analyst Name Role Phone Aaron Pisano MD Primary Care Provide r Reason for Visit * Reason Onset Date Comments Nurse Triage 02/21/2023 Encounter Details Date Type Department Care Team ([facility] st Contact Info) Description 02/21/2023 Telephone [facility] MEDICINE [address] [place] [address] Aaron Pisano MD [address] [place] [address] Nurse Triage Social History Tobacco Use Types [...] 4:45 PM EDT Please assist with obtaining [facility] ED discharge notes for 02/10/23. This food writer does not have [employer] access. Pt sent to ER after visit with [facility]. * Telephone Encounter - Leora Campbell RN - 02/21/2023 4:39 PM EDT Call to Zee Villanueva , reports having vomiting since seen at [facility] ER. Per pt was given abx for UTI and zofran. Per pt completed abx. Per pt continues to have vomiting. 5 episodes of vomiting in last 24 hours. No blood or green bile in vomit. Pt still taking chantix. Pt offered WIC tomorrow. Pt declines needs appt 3 days out for PT1. Agrees to visit with [facility] team provider. Reviewed home care advise and reasons to call back. Future Appointments Date Time Provider Department Center 02/25/2023 9:30 AM DUY Taveras MEDICINE [facility] 03/21/2023 1:00 PM Giovanna Payne PharmD MEDICINE [facility] 04/27/2023 3:00 PM Aniya Anderson RN MEDICINE [facility] Multiple (2) protocols were used on [...] accepted this outcome Please contact pt at [phone] Pt was at [facility] hospital on 02/10/2023 for same symptoms. documented in this encounter Plan of Treatment Upcoming Encounters Date Type Department Care Team (Late st Contact Info) Description 05/08/2025 2:40 PM EDT Office Visit [facility] [address] [place] [address] 05/31/2025 11:30 AM EDT Clinical Support [facility] MEDICINE [address] [place] [address] Altagracia Mancilla, GRACIELA [address] [place] [address] 08/29/2025 12:45 PM EST Office Visit [facility] ADULT DENTAL [address] [place] [address] Zhanna Hernandez documented as of this encounter Visit Diagnoses Not on filedocumented in this encounter Care Teams Architecture Analyst Relationship Specialty Start Date End Date Aaron Pisano MD [address] [place] [address] PCP - General Internal Medicine 05/10/14 Antonietta Lim Running InstructorGreige Goods Marker 09/18/24 documented as of this encounter
--- OUTSIDE RECORDS SUMMARY | 2025-05-08 13:49 | XMS_ITS | Encounter Summary ---
Author Organization [employer] Address [address] [place] [address] 7 [place] [address] Care Team Providers Care Rn Endocrinology Name Role Phone Aaron Pisano MD Primary Care Provide r Reason for Visit * Reason Onset Date Comments Med Refill 04/04/2023 Encounter Details Date Type Department Care Team ([facility] st Contact Info) Description 04/04/2023 Telephone [facility] MEDICINE [address] [place] [phone] Aaron Pisano MD 230 [place] [address] Med Refill Social History Tobacco Use Types [...] Description 05/08/2025 2:40 PM EDT Office Visit [facility] WALK[facility]IN [facility] 230 [place] [address] 05/31/2025 11:30 AM EDT Clinical Support [facility] MEDICINE [address] [place] [address] Altagracia Mancilla, RN 505 [place] [address] 08/29/2025 12:45 PM EST Office Visit [facility] ADULT DENTAL 230 [place] [address] Zhanna Hernandez documented as of this encounter Goals Goal Patient Goal Type Associated Problems Recent Progress Patient-Stated? Author Blood Pressure < 140/90 Blood Pressure 110/68( 11:12 AM EDT) No Giovanna Banks, PharmD documented as of this encounter Visit Diagnoses Not on filedocumented in this encounter Care Teams Rn Endocrinology Relationship Specialty Start Date End Date Aaron Pisano MD [address] [place] [address] PCP - General Internal Medicine 05/10/14 Antonietta Lim Mess Attendant CrewInterior Design Teacher 09/18/24 documented as of this encounter
--- OUTSIDE RECORDS SUMMARY | 2025-05-08 13:49 | XMS_ITS | Encounter Summary ---
Author Organization [employer] Address [address] [facility] 7t [place] [address] Care Team Providers Care Bingo Worker Name Role Phone Aaron Pisano MD Primary Care Provide r Reason for Visit * Reason Comments Med Refill Encounter Details Date Type Department Care Team ([facility] st Contact Info) Description 08/09/2023 Refill [facility] MEDICINE 230 [place] [address] Sumi Vang ANP 230 [place] [address] Chronic midline low back pain without sciatica [...] Description 05/08/2025 2:40 PM EDT Office Visit [facility] [address] [place] [address] 05/31/2025 11:30 AM EDT Clinical Support [facility] MEDICINE [address] [place] [address] Altagracia Mnacilla RN 505 [place] [address] 08/29/2025 12:45 PM EST Office Visit [facility] ADULT DENTAL [address] [place] [address] Zhanna Hernandez documented as of this encounter Goals Goal Patient Goal Type Associated Problems Recent Progress Patient-Stated? Author Blood Pressure < 140/90 Blood Pressure 110/68( 025 11:12 AM EDT) No Giovanna Banks, PharmD documented as of this encounter Visit Diagnoses Diagnosis Chronic midline low back pain without sciatica documented in this encounter Care Teams Bingo Worker Relationship Specialty Start Date End Date Aaron Pisano MD [address] [place] [address] PCP - General Internal Medicine 05/10/14 Antonietta Lim Stock LettererAgent Ticketing Gate 09/18/24 documented as of this encounter
--- OUTSIDE RECORDS SUMMARY | 2025-05-08 13:49 | XMS_ITS | Encounter Summary ---
Author Organization [employer] Address [address] [facility] [address] 7t [place] [address] Care Team Providers Care Attorney Law Clerk Name Role Phone Aaron Pisano MD Primary Care Provide r Reason for Visit * Reason Onset Date Comments Med Refill 05/02/2025 Encounter Details Date Type Department Care Team (Late st Contact Info) Description 05/02/2025 Refill [facility] MED & PEDS [address] [place], [place] [phone] Aaron Pisano MD 230 [place] [address] Chronic midline low back pain without sciatica [...] the past 12 months, has t he [employer], gas, oil or water company threatened to [...] 2:40 PM EDT Office Visit [facility] WALK[facility]IN CENTER [address] [place] [address] 05/31/2025 11:30 AM EDT Clinical Support [facility] MEDICINE [address] [place] [address] Altagracai Mancilla RN 505 [place] [address] 08/29/2025 12:45 PM EST Office Visit [facility] ADULT DENTAL [address] [place] [address] Zhanna Hernandez documented as of this encounter [...] documented as of this encounter Care Teams Attorney Law Clerk Relationship Specialty Start Date End Date Aaron Pisano MD [address] [place] [address] PCP - General Internal Medicine 05/10/14 Antonietta Lim Polymer SpecialistLubrication Technician 09/18/24 documented as of this encounter
--- OUTSIDE RECORDS SUMMARY | 2025-05-08 13:49 | XMS_ITS | Encounter Summary ---
Author Organization [employer] Address [address] [place] [address] 7t [place] [address] Care Team Providers Care Fender Finisher Name Role Phone Aaron Pisano MD Primary Care Provide r Reason for Visit * Reason Comments Med Refill Encounter Details Date Type Department Care Team (Late st Contact Info) Description 04/18/2023 Refill [facility] MEDICINE [address] [place] [address] Aaron Pisano MD [address] [place] [address] Chronic bilateral low back pain without sciatica [...] Description 05/08/2025 2:40 PM EDT Office Visit [facility] WALK[facility]IN CENTER [address] [place] [address] [phone] 05/31/2025 11:30 AM EDT Clinical Support [facility] MEDICINE [address] [place] [address] Altagracia Mancilla RN [address] [place] [address] 08/29/2025 12:45 PM EST Office Visit [facility] ADULT DENTAL 230 [place] [address] Zhanna Hernandez documented as of this encounter Goals Goal Patient Goal Type Associated Problems Recent Progress Patient-Stated? Author Blood Pressure < 140/90 Blood Pressure 110/68( 025 11:12 AM EDT) No Giovanna Banks PharmD documented as of this encounter Visit Diagnoses Diagnosis Chronic bilateral low back pain without sciatica documented in this encounter Care Teams Fender Finisher Relationship Specialty Start Date End Date Aaron Pisano MD 230 [place] [address] PCP - General Internal Medicine 05/10/14 Antonietta Lim CisspEngraver Hand Hard Metals 09/18/24 documented as of this encounter
--- OUTSIDE RECORDS SUMMARY | 2025-05-08 13:49 | XMS_ITS | Encounter Summary ---
Author Organization [employer] Address [address] [facility] 7t [place] [address] Care Team Providers Care Belt Sander Stone Name Role Phone Aaron Pisano MD Primary Care Provide r Reason for Visit * Reason Onset Date Comments Med Refill 05/01/2025 Encounter Details Date Type Department Care Team ([facility] st Contact Info) Description 05/01/2025 Refill [facility] MEDICINE [address] [place] [address] Aaron Pisano MD 230 [place] [address] Social History Tobacco Use Types Packs/Day Years [...] Description 05/08/2025 2:40 PM EDT Office Visit [facility] WALK[facility]IN [facility] [address] [place] [address] 05/31/2025 11:30 AM EDT Clinical Support [facility] MEDICINE [address] [place] [address] Altagracia Mancilla RN 505 [place] [address] 08/29/2025 12:45 PM EST Office Visit [facility] ADULT DENTAL [address] [place] [address] Zhanna Hernandez documented as of this encounter [...] documented as of this encounter Care Teams Belt Sander Stone Relationship Specialty Start Date End Date Aaron Pisano MD [address] [place] [address] PCP - General Internal Medicine 05/10/14 Antonietta Lim Blasting Contract MinerAvionics Supervisor 09/18/24 documented as of this encounter
--- OUTSIDE RECORDS SUMMARY | 2025-05-08 13:49 | XMS_ITS | Encounter Summary ---
Author Organization [employer] Address 75 [facility] 7 [place] [address] Care Team Providers Care Barrel Coater Name Role Phone Aaron Pisano MD Primary Care Provide r Reason for Visit * Reason Onset Date Comments Med Refill 08/12/2024 Encounter Details Date Type Department Care Team ([facility] st Contact Info) Description 08/12/2024 Refill [facility] MEDICINE [address] [place] [address] Aaron Pisano MD [address] [place] [address] Social History Tobacco Use Types Packs/Day Years [...] 05/08/2025 2:40 PM EDT Office Visit [facility] WALK[facility]IN CENTER [address] [place] [address] 05/31/2025 11:30 AM EDT Clinical Support [facility] MEDICINE [address] [place] [address] Altagracia Mancilla, GRACIELA 505 [place] [address] 08/29/2025 12:45 PM EST Office Visit [facility] ADULT DENTAL [address] [place] [address] Zhanna Hernandez documented as of this encounter [...] documented as of this encounter Care Teams Barrel Coater Relationship Specialty Start Date End Date Aaron Pisano MD [address] [place] [address], [place] [address] PCP - General Internal Medicine 05/10/14 Antonietta Lim Drivematic Machine OperatorTool Room Gear Machine Operator 09/18/24 documented as of this encounter
--- OUTSIDE RECORDS SUMMARY | 2025-05-08 13:49 | XMS_ITS | Encounter Summary ---
Author Organization [employer] Address [address] [facility] 7t [place] [address] Care Team Providers Care Resource Manager Forester Name Role Phone Aaron Pisano MD Primary Care Provide r Reason for Visit * Reason Comments Med Refill Encounter Details Date Type Department Care Team ([facility] st Contact Info) Description 04/05/2025 Refill [facility] MEDICINE 230 [place] [address] Aaron Pisano MD 230 [place], [place] [phone] Chronic midline low back pain without sciatica [...] Description 05/08/2025 2:40 PM EDT Office Visit [facility] WALK-IN CENTER [address] [place] [address] 05/31/2025 11:30 AM EDT Clinical Support [facility] MEDICINE [address] [place] [address] Altagracia Mancilla RN 505 [place] [address] 08/29/2025 12:45 PM EST Office Visit [facility] ADULT DENTAL [address] [place] [address] Zhanna Hernandez documented as of this encounter [...] documented as of this encounter Care Teams Resource Manager Forester Relationship Specialty Start Date End Date Aaron Pisano MD [address] [place] [address] PCP - General Internal Medicine 05/10/14 Antonietta Lim Facilities SpecialistWebmethods Consultant 09/18/24 documented as of this encounter
--- OUTSIDE RECORDS SUMMARY | 2025-05-08 13:49 | XMS_ITS | Encounter Summary ---
Author Organization [employer] Address [address] [facility] 7t [place] [address] Care Team Providers Care Division Order Analyst Name Role Phone Aaron Pisano MD Primary Care Provide r Reason for Visit * Reason Comments Med Refill Encounter Details Date Type Department Care Team ([facility] st Contact Info) Description 10/06/2023 Refill [facility] MEDICINE 230 [place] [address] Aaron Pisano MD 230 [place], [place] [phone] Chronic midline low back pain without sciatica [...] Visit [facility] WALK-IN CENTER [address] [place] [address] 05/31/2025 11:30 AM EDT Clinical Support [facility] MEDICINE [address] [place] [address] Altagracia Mancilla RN 505 [place] [address] 08/29/2025 12:45 PM EST Office Visit [facility] ADULT DENTAL [address] [place] [address] Zhanna Hernandez documented as of this encounter [...] documented as of this encounter Care Teams Division Order Analyst Relationship Specialty Start Date End Date Aaron Pisano MD [address] [place] [address] PCP - General Internal Medicine 05/10/14 Antonietta Lim Livestock BrokerClerk Of Works 09/18/24 documented as of this encounter
--- OUTSIDE RECORDS SUMMARY | 2025-05-08 13:49 | XMS_ITS | Encounter Summary ---
Author Organization [email or web address] Address [address] [facility] 7t [place] [address] Care Team Providers Care Manager Hospitality Name Role Phone Aaron Pisano MD Primary Care Provide r Reason for Visit * Reason Onset Date Comments Appointment Request 04/09/2025 Encounter Details Date Type Department Care Team ([facility] Contact Info) Description 04/09/2025 Telephone [facility] MEDICINE [address] [place] [address] Aaron Pisano MD 230 [place] [address] Appointment Request Social History Tobacco Use Types [...] , pt has covid Contact pt at [phone] documented in this encounter Plan of Treatment Upcoming Encounters Date Type Department Care Team (Late st Contact Info) Description 05/08/2025 2:40 PM EDT Office Visit [facility] WALK-IN CENTER [address] [place] [address] 05/31/2025 11:30 AM EDT Clinical Support [facility] MEDICINE [address] [place] [address] Altagracia Mancilla RN 505 [place] [address] 08/29/2025 12:45 PM EST Office Visit [facility] ADULT DENTAL [address] [place] [address] Zhanna Hernandez documented as of this encounter Goals Goal Patient Goal Type Associated Problems Recent Progress Patient-Stated? Author Blood Pressure < 140/90 Blood Pressure 110/68( 025 11:12 AM EDT) Giovanna Edwards, SohamD documented as of this encounter Visit Diagnoses Not on filedocumented in this encounter Additional Health Concerns Assessment Noted Time PHQ-9 Depression Total Score: 2 06/05/20 24 8:38 AM EDT documented as of this encounter Care Teams Manager Hospitality Relationship Specialty Start Date End Date Aaron Pisano MD [address] [place] [address] PCP - General Internal Medicine 05/10/14 Antonietta Lim Casting Plug AssemblerSteamship Agent 09/18/24 documented as of this encounter
--- OUTSIDE RECORDS SUMMARY | 2025-05-08 13:49 | XMS_ITS | Encounter Summary ---
Author Organization [employer] Address [address] [facility] 7t [place] [address] Care Team Providers Care Boring Machine Set Up Operator Name Role Phone Aaron Pisano MD Primary Care Provide r Encounter Details Date Type Department Care Team ([facility] st Contact Info) Description 04/05/2025 Telephone [facility] MEDICINE 230 [place] [address] Aaron Pisano MD 230 [place] [address] Social History Tobacco Use Types Packs/Day Years [...] Description 05/08/2025 2:40 PM EDT Office Visit [facility] WALK[facility]IN CENTER [address] [place] [address] 05/31/2025 11:30 AM EDT Clinical Support [facility] MEDICINE [address] [place] [address] 11751 Altagracia Mancilla RN 505 [place] [address] 08/29/2025 12:45 PM EST Office Visit [facility] ADULT DENTAL [address] [place] [address] Zhanna Hernandez documented as of this encounter [...] documented as of this encounter Care Teams Boring Machine Set Up Operator Relationship Specialty Start Date End Date Aaron Pisano MD [address] [place] [address] PCP - General Internal Medicine 05/10/14 Antonietta Lim Traffic Personnel SupervisorVideo Tape Editor 09/18/24 documented as of this encounter
--- OUTSIDE RECORDS SUMMARY | 2025-05-08 13:49 | XMS_ITS | Encounter Summary ---
Author Organization [employer] Address [address] [facility] 7t [place] [address] Care Team Providers Care Inside Sales Specialist Name Role Phone Aaron Pisano MD Primary Care Provide r Reason for Visit * Reason Comments Med Refill Encounter Details Date Type Department Care Team ([facility] st Contact Info) Description 07/04/2023 Refill [facility] MED & PEDS [address] [place], [place] [phone] Sumi Vang, ANP 230 [place] [address] Social History Tobacco Use Types Packs/Day Years [...] 05/08/2025 2:40 PM EDT Office Visit [facility] [address] [place] [address] 05/31/2025 11:30 AM EDT Clinical Support [facility] MEDICINE [address] [place] [address] Altagracia Mancilla RN 505 [place] [address] 08/29/2025 12:45 PM EST Office Visit [facility] ADULT DENTAL [address] [place] [address] Zhanna Hernandez documented as of this encounter Goals Goal Patient Goal Type Associated Problems Recent Progress Patient-Stated? Author Blood Pressure < 140/90 Blood Pressure 110/68( 025 11:12 AM EDT) No Giovanna Banks, PharmD documented as of this encounter Visit Diagnoses Not on filedocumented in this encounter Care Teams Inside Sales Specialist Relationship Specialty Start Date End Date Aaron Pisano MD [address] [place] [address] PCP - General Internal Medicine 05/10/14 Antonietta Lim Turner And Former AutomaticDipping Machine Operator 09/18/24 documented as of this encounter
--- OUTSIDE RECORDS SUMMARY | 2025-05-08 13:49 | XMS_ITS | Encounter Summary ---
Author Organization [employer] Address [address] [facility] 7t [place] [address] Care Team Providers Care Genetic Coordinator Name Role Phone Aaron Pisano MD Primary Care Provide r Reason for Visit * Reason Onset Date Comments Med Refill 08/12/2024 Encounter Details Date Type Department Care Team ([facility] st Contact Info) Description 08/12/2024 Refill [facility] MEDICINE [address] [place] [address] Aaron Pisano MD [address] [place] [address] Smoker Social History Tobacco Use Types Packs/Day [...] Description 05/08/2025 2:40 PM EDT Office Visit [facility] WALK[facility]IN [facility] [address] [place] [address] 05/31/2025 11:30 AM EDT Clinical Support [facility] MEDICINE [address] [place] [address] Altagracia Mancilla RN 505 [place] [address] 08/29/2025 12:45 PM EST Office Visit [facility] ADULT DENTAL [address] [place] [address] Zhanna Hernandez documented as of this encounter [...] documented as of this encounter Care Teams Genetic Coordinator Relationship Specialty Start Date End Date Aaron Pisano MD 230 [place] [address] PCP - General Internal Medicine 05/10/14 Antonietta Lim Geodetic EngineerPaper Tube Grader 09/18/24 documented as of this encounter
--- OUTSIDE RECORDS SUMMARY | 2025-05-08 13:49 | XMS_ITS | Encounter Summary ---
Author Organization [employer] Address [address] [facility] 7t [place] [address] Care Team Providers Care Secondary School Registrar Name Role Phone Aaron Pisano MD Primary Care Provide r Reason for Visit * Reason Comments Med Refill Encounter Details Date Type Department Care Team ([facility] st Contact Info) Description 07/07/2023 Refill [facility] MEDICINE [address] [place] [address] Aaron Pisano MD 230 [place] [address] Social History Tobacco Use Types Packs/Day Years [...] Description 05/08/2025 2:40 PM EDT Office Visit [facility] WALK[facility]IN [facility] [address] [place] [address] 05/31/2025 11:30 AM EDT Clinical Support [facility] MEDICINE [address] [place] [address] Altagracia Mancilla RN [address] [place] [address] 08/29/2025 12:45 PM EST Office Visit [facility] ADULT DENTAL [address] [place] [address] Zhanna Hernandez documented as of this encounter Goals Goal Patient Goal Type Associated Problems Recent Progress Patient-Stated? Author Blood Pressure < 140/90 Blood Pressure 110/68( 025 11:12 AM EDT) No Giovanna Banks, SohamD documented as of this encounter Visit Diagnoses Not on filedocumented in this encounter Care Teams Secondary School Registrar Relationship Specialty Start Date End Date Aaron Pisano MD [address] [place] [address] PCP - General Internal Medicine 05/10/14 Antonietta Lim Manager HousekeepingSpiritual Advisor 09/18/24 documented as of this encounter
--- OUTSIDE RECORDS SUMMARY | 2025-05-08 13:49 | XMS_ITS | Encounter Summary ---
Author Organization [employer] Address [address] [facility] 7t [place] [address] Care Team Providers Care Commercial Artist Name Role Phone Aaron Pisano MD Primary Care Provide r Reason for Visit * Reason Onset Date Comments pt1 01/07/2025 Encounter Details Date Type Department Care Team ([facility] st Contact Info) Description 01/07/2025 Telephone [facility] MEDICINE [address] [place] [phone] Aaron Pisano MD [address] [place] [address] pt1 Social History Tobacco Use Types Packs/Day [...] requirement. Please update information for address [address] [facility] [address] [facility] [address] documented in this encounter Plan of Treatment Upcoming Encounters Date Type Department Care Team (Late st Contact Info) Description 05/08/2025 2:40 PM EDT Office Visit [facility] WALK-IN CENTER [address] [place] [address] 05/31/2025 11:30 AM EDT Clinical Support [facility] MEDICINE [address] [place] [address] Altagracia Mancilla RN 505 [place] [address] 08/29/2025 12:45 PM EST Office Visit [facility] ADULT DENTAL [address] [place] [address] Zhanna Hernandez documented as of this encounter [...] documented as of this encounter Care Teams Commercial Artist Relationship Specialty Start Date End Date Aaron Pisano MD [address] [place] [address] PCP - General Internal Medicine 05/10/14 Antonietta Lim Chemistry AssociateEvent Designer 09/18/24 documented as of this encounter
--- OUTSIDE RECORDS SUMMARY | 2025-05-08 13:49 | XMS_ITS | Encounter Summary ---
Author Organization [employer] Address [address] [place] [address] 7 [place] [address] Care Team Providers Care Coal Hauler Name Role Phone Aaron Pisano MD Primary Care Provide r Reason for Visit * Reason Onset Date Comments Med Refill 09/14/2022 Encounter Details Date Type Department Care Team (Late Contact Info) Description 09/14/2022 Telephone [facility] MEDICINE [address] [place] [address] Aaron Pisano MD [address] [place] [phone] Med Refill Social History Tobacco Use Types [...] 05/08/2025 2:40 PM EDT Office Visit [facility] WALK-IN CENTER [address] [place] [address] 05/31/2025 11:30 AM EDT Clinical Support [facility] MEDICINE [address] [place] [address] Altagracia Mancilla, GRACIELA 505 [place] [address] 08/29/2025 12:45 PM EST Office Visit [facility] ADULT DENTAL 230 [place] [address] Zhanna Hernandez documented as of this encounter Visit Diagnoses Not on filedocumented in this encounter Care Teams Coal Hauler Relationship Specialty Start Date End Date Aaron Pisano MD [address] [place] [address] PCP - General Internal Medicine 05/10/14 Antonietta Lim Barber Or Beauty Shop ManagerResearch Specialist 09/18/24 documented as of this encounter
--- OUTSIDE RECORDS SUMMARY | 2025-05-08 13:49 | XMS_ITS | Encounter Summary ---
Author Organization [employer] Address 75 [facility] 7t [place] [address] Care Team Providers Care Digital Sales Manager Name Role Phone Aaron Pisano MD Primary Care Provide r Reason for Visit * Reason Onset Date Comments Med Refill 08/02/2024 Encounter Details Date Type Department Care Team ([facility] Contact Info) Description 08/02/2024 Telephone [facility] MEDICINE [address] [place] [address] Aaron Pisano MD 230 [place] [address] Med Refill Social History Tobacco Use Types [...] 05/08/2025 2:40 PM EDT Office Visit [facility] WALK-IN CENTER [address] [place] [address] 05/31/2025 11:30 AM EDT Clinical Support [facility] MEDICINE [address] [place] [address] Altagracia Mancilla RN 505 [place] [address] 08/29/2025 12:45 PM EST Office Visit [facility] ADULT DENTAL [address] [place] [address] Zhanna Hernandez documented as of this encounter Goals Goal Patient Goal Type Associated Problems Recent Progress Patient-Stated? Author Blood Pressure < 140/90 Blood Pressure 110/68( 025 11:12 AM EDT) No Piers-Gambl e, Giovanna, PharmD documented as of this encounter Visit Diagnoses Diagnosis Chronic midline low back pain without sciatica documented in this encounter Additional Health Concerns Assessment Noted Time PHQ-9 Depression Total Score: 2 06/05/20 24 8:38 AM EDT documented as of this encounter Care Teams Digital Sales Manager Relationship Specialty Start Date End Date Aaron Pisano MD [address] [place] [address] PCP - General Internal Medicine 05/10/14 Antonietta Lim Political AnalystChief Scientific Officer 09/18/24 documented as of this encounter
--- OUTSIDE RECORDS SUMMARY | 2025-05-08 13:49 | XMS_ITS | Encounter Summary ---
Author Organization [employer] Address 75 [facility] 7t [place] [address] Care Team Providers Care Document Control Manager Name Role Phone Aaron Pisano MD Primary Care Provide r Reason for Visit * Reason Onset Date Comments Med Refill 06/01/2023 Encounter Details Date Type Department Care Team (Late st Contact Info) Description 06/01/2023 Refill [facility] CHC MED & PEDS [address] [place], [place] [phone] Sumi Vang, ANP 230 [place] [address] Chronic midline low back pain without sciatica [...] with others, in a hotel, in a long term, living outside on the street, on a [...] Description 05/08/2025 2:40 PM EDT Office Visit [facility] WALK-IN CENTER [address] [place] [address] 05/31/2025 11:30 AM EDT Clinical Support [facility] MEDICINE [address] [place] [address] Altagracia Mancilla, GRACIELA 505 [place] [address] 08/29/2025 12:45 PM EST Office Visit [facility] ADULT DENTAL [address] [place] [address] Zhanna Hernandez documented as of this encounter Goals Goal Patient Goal Type Associated Problems Recent Progress Patient-Stated? Author Blood Pressure < 140/90 Blood Pressure 110/68( 025 11:12 AM EDT) No Giovanna Banks, SohamD documented as of this encounter Visit Diagnoses Diagnosis Chronic midline low back pain without sciatica documented in this encounter Care Teams Document Control Manager Relationship Specialty Start Date End Date Aaron Pisano MD [address] [place] [address] PCP - General Internal Medicine 05/10/14 Antonietta Lim Train Reservation ClerkPublic Opinion Survey Taker 09/18/24 documented as of this encounter
--- OUTSIDE RECORDS SUMMARY | 2025-05-08 13:49 | XMS_ITS | Encounter Summary ---
Author Organization [employer] Address 75 [facility] 7 [place] [address] Care Team Providers Care Roll Handler Name Role Phone Aaron Pisano MD Primary Care Provide r Reason for Visit * Reason Onset Date Comments Med Refill 02/05/2025 Encounter Details Date Type Department Care Team ([facility] st Contact Info) Description 02/05/[address] [facility] CHC MED & PEDS [address] [place] [address] Fam Hartman MD 505 [place] [address] Chronic midline low back pain without sciatica [...] Description 05/08/2025 2:40 PM EDT Office Visit [facility] WALK-IN CENTER [address] [place] [address] 05/31/2025 11:30 AM EDT Clinical Support [facility] MEDICINE [address] [place] [address] Altagracia Mancilla RN 505 [place] [address] 08/29/2025 12:45 PM EST Office Visit [facility] ADULT DENTAL [address] [place] [address] Zhanna Hernandez documented as of this encounter [...] documented as of this encounter Care Teams Roll Handler Relationship Specialty Start Date End Date Aaron Pisano MD [address] [place] [address] PCP - General Internal Medicine 05/10/14 Antonietta Lim Pattern Wheel MakerOffice Machines Wirer 09/18/24 documented as of this encounter
--- OUTSIDE RECORDS SUMMARY | 2025-05-08 13:49 | XMS_ITS | Encounter Summary ---
Author Organization [employer] Address [address] [facility] 7 [place] [address] Care Team Providers Care Shelf Stocker Name Role Phone Aaron Pisano MD Primary Care Provide r Reason for Visit * Reason Onset Date Comments Med Refill 01/04/2025 Encounter Details Date Type Department Care Team (Late st Contact Info) Description 01/04/2025 Refill [facility] MEDICINE 230 [place] [address] Fam Hartman MD [address] [place] [address] Chronic midline low back pain without sciatica [...] 2:40 PM EDT Office Visit [facility] WALK-IN CENTER [address] [place] [address] 05/31/2025 11:30 AM EDT Clinical Support [facility] MEDICINE [address] [place] [address] Altagracia Mancilla RN 505 [place] [address] 08/29/2025 12:45 PM EST Office Visit [facility] ADULT DENTAL [address] [place] [address] Zhanna Hernandez documented as of this encounter [...] documented as of this encounter Care Teams Shelf Stocker Relationship Specialty Start Date End Date Aaron Pisano MD [address] [place] [address] PCP - General Internal Medicine 05/10/14 Antonietta Lim Peoplesoft Hcm ConsultantAssistant Mechanic 09/18/24 documented as of this encounter
--- OUTSIDE RECORDS SUMMARY | 2025-05-08 13:49 | XMS_ITS | Encounter Summary ---
Author Organization [employer] Address [address] [facility] 7t [place] [address] Care Team Providers Care Floorman Name Role Phone Aaron Pisano MD Primary Care Provide r Encounter Details Date Type Department Care Team (Latest Contact Info) Description 07/16/2019 Abstract [facility] CONVERSIONS Dental, Provider, DDS Social [...] Description 05/08/2025 2:40 PM EDT Office Visit [facility] WALK-IN CENTER [address] [place] [address] 05/31/2025 11:30 AM EDT Clinical Support [facility] MEDICINE [address] [place] [address] Altagracia Mancilla RN 505 [place] [address] 08/29/2025 12:45 PM EST Office Visit [facility] ADULT DENTAL [address] [place] [address] Zhanna Hernandez documented as of this encounter Visit Diagnoses Not on filedocumented in this encounter Care Teams Floorman Relationship Specialty Start Date End Date Aaron Pisano MD [address] [place] [address] PCP - General Internal Medicine 05/10/14 Antonietta Lim Pizza MakerVp Packaging 09/18/24 documented as of this encounter
--- OUTSIDE RECORDS SUMMARY | 2025-05-08 13:49 | XMS_ITS | Encounter Summary ---
Author Organization [employer] Address [address] [facility] 7t [place] [address] Care Team Providers Care Vacuum Metalizing Supervisor Name Role Phone Aaron Pisano MD Primary Care Provide r Reason for Visit * Reason Comments Med Refill Encounter Details Date Type Department Care Team ([facility] st Contact Info) Description 05/07/2024 Refill [facility] MEDICINE 230 [place] [address] Aaron Pisano MD [address] [place], [place] [phone] Chronic midline low back pain without sciatica [...] Description 05/08/2025 2:40 PM EDT Office Visit [facility] WALK-IN CENTER [address] [place] [address] 05/31/2025 11:30 AM EDT Clinical Support [facility] MEDICINE [address] [place] [address] Altagracia Mancilla RN [address] [place] [address] 08/29/2025 12:45 PM EST Office Visit [facility] ADULT DENTAL [address] [place] [address] Zhanna Hernandez documented as of this encounter [...] as of this encounter Care Teams Vacuum Metalizing Supervisor Relationship Specialty Start Date End Date Aaron Pisano MD [address] [place] [address] PCP - General Internal Medicine 05/10/14 Antonietta Lim Making Machine CatcherLegal Collector 09/18/24 documented as of this encounter
--- OUTSIDE RECORDS SUMMARY | 2025-05-08 13:49 | XMS_ITS | Encounter Summary ---
Author Organization [employer] Address [address] [facility] [address] 7t [place] [address] Care Team Providers Care Syrup Maker Name Role Phone Aaron Pisano MD Primary Care Provide r Reason for Visit * Reason Comments Med Refill Encounter Details Date Type Department Care Team ([facility] st Contact Info) Description 05/02/2025 Refill [facility] CHC MED & PEDS [address] [place], [place] [phone] Aaron Pisano MD 230 [place], [place] [phone] Chronic midline low back pain without sciatica [...] Description 05/08/2025 2:40 PM EDT Office Visit [facility] WALK-IN CENTER [address] [place] [address] 05/31/2025 11:30 AM EDT Clinical Support [facility] MEDICINE [address] [place] [address] Altagracia Mancilla, GRACIELA 505 [place], [place] [phone] 08/29/2025 12:45 PM EST Office Visit [facility] ADULT DENTAL [address] [place] [address] Zhanna Hernandez documented as of this encounter [...] documented as of this encounter Care Teams Syrup Maker Relationship Specialty Start Date End Date Aaron Pisano MD 230 [place] [address] PCP - General Internal Medicine 05/10/14 Antonietta Lim Pebble Mill OperatorForge Hand 09/18/24 documented as of this encounter
--- OUTSIDE RECORDS SUMMARY | 2025-05-08 13:49 | XMS_ITS | Encounter Summary ---
Author Organization [employer] Address 75 [facility] 7 [place] [address] Care Team Providers Care Binding Nicker Name Role Phone Aaron Pisano MD Primary Care Provide r Encounter Details Date Type Department Care Team (Latest Contact Info) Description 11/10/2020 Abstract [facility] CONVERSIONS Dental, Provider, DDS Social History [...] 05/08/2025 2:40 PM EDT Office Visit [facility] WALK-IN CENTER [address] [place] [address] 05/31/2025 11:30 AM EDT Clinical Support [facility] MEDICINE [address] [place] [address] Altagracia Mancilla RN 505 [place] [address] 08/29/2025 12:45 PM EST Office Visit [facility] ADULT DENTAL [address] [place] [address] Zhanna Hernandez documented as of this encounter Visit Diagnoses Not on filedocumented in this encounter Care Teams Binding Nicker Relationship Specialty Start Date End Date Aaron Pisano MD [address] [place] [address] PCP - General Internal Medicine 05/10/14 Antonietta Lim Time Clock MechanicWeb Worker 09/18/24 documented as of this encounter
--- OUTSIDE RECORDS SUMMARY | 2025-05-08 13:49 | XMS_ITS | Encounter Summary ---
Author Organization [employer] Address 75 [facility] 7 [place] [address] Care Team Providers Care Restaurant Worker Name Role Phone Aaron Pisano MD Primary Care Provide r Reason for Visit * Reason Onset Date Comments Med Refill 08/24/2022 Encounter Details Date Type Department Care Team ([facility] st Contact Info) Description 08/24/2022 Telephone [facility] MEDICINE [address] [place] [address] Aaron Pisano MD [address] [place] [address] Med Refill Social History Tobacco Use Types [...] 2:40 PM EDT Office Visit [facility] WALK-IN CENTER 230 [place] [address] 05/31/2025 11:30 AM EDT Clinical Support [facility] MEDICINE [address] [place] [address] Altagracia Mancilla, GRACIELA 505 [place] [address] 08/29/2025 12:45 PM EST Office Visit [facility] ADULT DENTAL [address] [place] [address] Zhanna Hernandez documented as of this encounter Visit Diagnoses Not on filedocumented in this encounter Care Teams Restaurant Worker Relationship Specialty Start Date End Date Aaron Pisano MD [address] [place] [address] PCP - General Internal Medicine 05/10/14 Antonietta Lim Welding Equipment Sales RepresentativeNet Application Architect 09/18/24 documented as of this encounter
--- OUTSIDE RECORDS SUMMARY | 2025-05-08 13:49 | XMS_ITS | Clinical Summary ---
Author Organization [employer] Address [address] [facility] 7t [place] [address] Care Team Providers Care Historic Sites Registrar Name Role Phone Aaron Pisano MD [...] AND VOMITING 90 tablet 1 02/23/20 25 025 Discontinued baclofen (Lioresal) 10 MG tabletIndicat ions:Chronic bilateral low back pain without sciatica TAKE 1 TABLET BY MOUTH TWICE DAILY IN THE MORNING AND AT BEDTIME NEEDED FOR MUSCLE SPASMS 60 tablet 1 02/23/20 25 025 Discontinued loperamide (Anti-Diarrhe al) 2 MG [...] UP TO 7 DAYS 20 tablet 04/05/20 25 025 Discontinued(R eorder (will [...] for 5 days. 1 each 04/09/20 25 025 Active Problems Problem Noted Date Diagnosed Date [...] compliance, counseled about weight loss. 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 She is under the care of Section Chief Dr. Reagan Alfaro last note [id number] He recommended to: Monitor given that There is no serological evidence of systemic vasculitis. If she has a recurrence within the next year I think it would warrant immunosuppressive treatment at that time. 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 She is under the care of Section Chief Dr Newberry. She is on Prednisone 2 [...] due Bipolar affective disorder, currently depressed, moderate (CMS/HCC) 10/19/2018 Assessment & Plan (12/25/2024 12:55 PM EDT): Televisit Pt reports she continues under the care of a psychotherapist and a psychiatrist Dr. Gregory. At [facility] Pt is on: Hydroxyzine, Ambien, Assessment & Plan (08/23/2023 2:06 PM EST): Pt under the care of a psychotherapist and a psychiatrist. At [facility] Pt is no longer on Abilify nor Clonidine. She is now on Geodon Assessment & Plan (08/03/2022 9:22 AM EST): Pt under the care of a psychotherapist and a psychiatrist. At [facility] started on Abilify 7.5 mg [...] most recently seen by Dr Rodas at [facility] 06/15/2024 who recommended PRN follow [...] care of Pulmonology Dr James last seen 01/28/2025 On a regimen of [...] Gabapentin 300 mg po TID Severe obesity (CMS/HCC) 07/12/2013 Assessment & Plan (08/23/2023 1:51 PM EST): Previously referred to [facility] Comprehensive weight management program. Seen twice, they prompter to discuss with her mental health provider her eating habits before they would consider accepting her into the program Assessment & Plan (12/30/2022 3:28 PM EDT): Previously referred to [facility] Comprehensive weight management program Assessment & Plan (08/03/2022 1:48 PM EST): Referred to [facility] Comprehensive weight management program Genital [...] EST): Seen in the past by an Web Marketing Intern (Dr. Dozier) Under the care of Clare Carlin The last US on record done at [facility] 01/2019 showed a hypoechoic well circumscribed [...] Encounters Date Type Department Care Team Description 05/08/2025 11:00 AM EDT Office Visit [facility] [address] [place] [address] Miki Sarkar DDS Excessive attrition of teeth (Primary Dx) 05/08/2025 Travel 05/03/2025 Orders Only [facility] External Provider, [facility] 05/02/2025 Refill [facility] [address] [place] [address] Aaron Pisano MD Chronic midline low back pain without sciatica 05/02/2025 Refill [facility] [address] [facility] [place] [address] Aaron Pisano MD Chronic midline low back pain without sciatica 05/01/2025 Refill [facility] [address] [place] [address] Aaron Pisano MD 05/01/2025 Refill [facility] [address] [facility] [place] [address] Aaron Pisano MD Diarrhea in adult patient 05/01/2025 Travel 04/21/2025 Refill [facility] [address] [facility] [place] [address] Aaron Pisano MD Chronic bilateral low back pain without sciatica; Intractable vomiting with nausea 04/11/2025 Refill [facility] [address] [facility] [place] [address] Aaron Pisano MD 04/10/2025 Travel 04/10/2025 Telephone [facility] [address] [facility] [place] [address] Altagracia Mancilla RN 04/09/2025 11:15 AM EDT Office Visit [facility] [address] [place] [address] Aaron Pisano MD Primary hypertension (Primary Dx); COVID-19; Mild intermittent asthma without complication; Vasculitis (CMS/HCC); Leukocytoclastic vasculitis (CMS/HCC); Routine health maintenance; Acute cough 04/09/2025 Telephone [facility] [address] [place] [address] Aaron Pisano MD Appointment Request 04/09/2025 Travel 04/05/2025 Travel 04/05/2025 Telephone [facility] [address] [facility] [place] [address] Aaron Pisano MD Lab Order Request and Med Refill 04/05/2025 Telephone [facility] [address] [facility] [place] [address] Aaron Pisano MD 04/05/2025 Refill [facility] [address] [facility] [address] Aaron Pisano MD Chronic midline low back pain without sciatica 04/05/2025 Refill [facility] [address] [facility] [place] [address] Altagracia Mancilla RN Chronic midline low back pain without sciatica 04/04/2025 Refill [facility] [address] [facility] [place] [address] Aaron Pisano MD Chronic midline low back pain without sciatica 04/03/2025 Travel 04/03/2025 Telephone [facility] [address] [facility] [address] Aaron Pisano MD Med Refill 04/02/2025 Refill [facility] [address] [place] [address] Aaron Pisano MD 04/02/2025 Refill [facility] [address] [facility] [place] [address] Aaron Pisano MD Diarrhea in adult patient 04/02/2025 Refill [facility] [address] [facility] [place] [address] Aaron Pisano MD Chronic midline low back pain without sciatica; Diarrhea in adult patient 04/02/2025 Travel 03/29/2025 Refill [facility] [address] [place] [address] Aaron Pisano MD Smoker 03/13/2025 3:00 PM EDT Office Visit [facility] [address] [place] [address] Miki Sarkar DDS Open fracture of tooth, initial encounter (Primary Dx); Abrasion of teeth, localized; Bruxism, sleep-related 03/12/2025 Travel 03/08/2025 Refill [facility] [address] [facility] [place] [address] Aaron Pisano MD 03/05/2025 Refill [facility] [address] [place] [address] Aaron Pisano MD Chronic midline low back pain without sciatica 03/05/2025 Refill [facility] [address] [place] [address] Aaron Pisano MD Chronic midline low back pain without sciatica 03/05/2025 Refill [facility] [address] [place] [address] Aaron Pisano MD Chronic midline low back pain without sciatica 02/22/2025 Refill [facility] [address] [place] [address] Aaron Pisano MD Intractable vomiting with nausea; Chronic bilateral low back pain without sciatica 02/11/2025 9:00 AM EDT Office Visit [facility] [address] [place] [address] Rachel Gómez Excessive attrition of teeth, limited to enamel (Primary Dx) 02/11/2025 Refill [facility] [address] [place] [address] Aaron Pisano MD Primary hypertension; Vasculitis (CMS/HCC) 02/05/2025 Refill [facility] [address] [place] [address] Aaron Pisano MD Chronic midline low back pain without sciatica 02/05/2025 Refill [facility] [address] [place], [place] [phone] Fam Hartman MD Chronic midline low back [...] Pressure 110/68 05/08/2025 11:12 AM EDT Pulse 85 04/09/2025 11:14 AM [...] Description 05/08/2025 2:40 PM EDT Office Visit [facility] [address] [place] [address] 05/31/2025 11:30 AM EDT Clinical Support [facility] [address] [place] [address] Altagracia Mancilla, GRACIELA [address] [place] [address] 08/29/2025 12:45 PM EST Office Visit [facility] [address] [place] [address] Zhanna Hernandez Health Maintenance Due Date Last [...] 02/05, 01/26/2024, Additional history exists Tobacco Screening 05/08/2026 05/08/2025 Zoster Vaccines (1 of 2) 2027 Lipid [...] 11:12 AM EDT) No Giovanna Banks PharmD Procedures Procedure Name Priority Date/Time Associated Diagnosis Comments 8 ML RESIN-BASED COMPOSITE - 2 SURF, ANTERIOR Routine 05/08/2025 11:[address] SINUS WO CONTRAST Routine 05/03/2025 4:22 PM EDT POCT INFLUENZA A Routine 04/09/2025 1:41 PM [...] ADULT Routine 02/11/2025 9 :00 AM EDT HEPATITIS PANEL, GENERAL Routine 12/28/2024 2:24 [...] Recently Relevant to Health Maintenance Results * CT Sinus w/o Contrast (05/03/2025 4:22 PM EDT) Anatomical Region Laterality Modality Computed Tomogra phy 05/03/2025 4:22 PM EDT Narrative 05/03/2025 5:14 PM EDT [place] [address] CT Scan Report Signed Patient: Zee Villanueva MR#: [id number] : 1975 Acct:[id number] Age/Sex: 49 / F ADM Date: 05/03/25 Loc: HO.CT Attending Dr: Kerry James MD Ordering Physician: Kerry James MD Date of Service: 05/03/25 Procedure(s): CT sinus wo IV con Accession Number(s): [id number] cc: Kerry James MD; Aaron Carcamo MD Report Number: [id number]: Total DLP = 92.00 mGy-cm Reason for Exam: J32.9 - Chronic sinusitis, unspecified EXAMINATION: CT SINUS WITHOUT CONTRAST CLINICAL INFORMATION: J32.9 - Chronic sinusitis, unspecified COMPARISON: None available. TECHNIQUE: Axial CT was performed through the sinuses without contrast. Coronal and sagittal reformatted images were generated from the original axial data set. ALARA: The examination used one or more of the following radiation dose reduction techniques: Automated exposure control, iterative reconstruction, and/or adjustment of mA and/or KV. FINDINGS: The paranasal sinuses are clear. Turbinates are unremarkable. Anterior ethmoid infundibulum appears patent. CT/CT sinus wo IV con IMPRESSION: Unremarkable examination. Electronically signed by: Jamie Piedra MD 05/03/2025 05:11 PM EDT RP Dictated By: Jamie Piedra MD Signed By: <Electronically signed by Jamie Piedra MD in OV> 05/03/25 1711 DD/ 1622 TD/TT: 05/03/25 1640 Head Of Operation And Logistics: Procedure Note Donotuseinterpreter, Image - 05/03/[address] [place] [address] [address] Scan Report Signed Patient: Zee Villanueva AMR#: [id number] : 1975Acct:[id number] Age/Sex: 49 / FADM Date: 05/03/25 Loc: HO.CT Attending Dr: Kerry James MD Ordering Physician: Kerry James MD Date of Service: 05/03/25 Procedure(s): CT sinus wo IV con Accession Number(s): [id number] cc: Kerry James MD; Aaron Carcamo MD Report Number: [id number]: Total DLP = 92.00 mGy-cm Reason for Exam: J32.9 - Chronic sinusitis, unspecified EXAMINATION: CT SINUS WITHOUT CONTRAST CLINICAL INFORMATION: J32.9 - Chronic sinusitis, unspecified COMPARISON: None available. TECHNIQUE: Axial CT was performed through the sinuses without contrast. Coronal and sagittal reformatted images were generated from the original axial data set. ALARA: The examination used one or more of the following radiation dose reduction techniques: Automated exposure control, iterative reconstruction, and/or adjustment of mA and/or KV. FINDINGS: The paranasal sinuses are clear. Turbinates are unremarkable. Anterior ethmoid infundibulum appears patent. CT/CT sinus wo IV con IMPRESSION: Unremarkable examination. Electronically signed by: Jmaie Piedra MD 05/03/2025 05:11 PM EDT RP Dictated By: Jamie Piedra MD Signed By: <Electronically signed by Jamie Piedra MD in OV> 05/03/25 171 DD/ 1622 TD/TT: 05/03/25 1640 Head Of Operation And Logistics: [facility] External Provider IMG CT PROCEDURES Final Result * POCT Influenza A manually resulted (04/09/2025 1:41 PM EDT) [facility] Rapid Influenza A Ag Negative Negative, Indeterminate QC Media Lot # [id number] Lot# Expiration Date Swab Nasopharyngeal structure / Unknown 04/09/2025 1:41 PM EDT Result [facility] Aaron Harris MD POINT OF CARE TEST EN TER/EDIT ORDERABLES Final Result * POCT Influenza B manually resulted (04/09/2025 1:40 PM EDT) [facility] Rapid Influenza B Ag Negative Negative, Indeterminate QC Media Lot # [id number] Lot# Expiration Date Swab 04/09/2025 1:40 PM EDT Result [facility] Aaron Harris MD POINT OF CARE TEST EN TER/EDIT ORDERABLES Final Result * POCT Rapid COVID Ag (04/09/2025 1:39 PM EDT) [facility] Rapid COVID Ag Positive QC Media Lot # [id number] Lot# Expiration Date , Swab 04/09/2025 1:39 PM EDT Result [facility] Aaron Harris MD POINT OF CARE TEST EN TER/EDIT ORDERABLES Final Result * POCT rapid strep A manually resulted (04/09/2025 1:27 PM EDT) [facility] Rapid Strep A Screen Negative Negative, None Detected QC Media Lot # [id number] Lot# Expiration Date ,027 Swab 04/09/2025 1:27 PM EDT Aaron Harris MD POINT OF CARE TEST EN TER/EDIT ORDERABLES Final Result * BI Mammogram Screening Tomosynthesis Bilateral (02/20/2025 2:30 PM EDT) Anatomical Region Laterality Modality Breast Bilateral Mammography 02/20/2025 2:30 PM EDT Narrative 03/01/2025 8:13 PM EDT [facility] [address] [place] [address] Mammography Report Signed Patient: Zee Villanueva MR#: [id number] : 1975 Acct:[id number] Age/Sex: 49 / F ADM Date: 02/20/25 Loc: LAND[facility] Attending Dr: Aaron Carcamo MD Ordering Physician: Aaron Carcamo MD Resu lts: 1Negative Date of Service: 02/20/25 Follow Up: 1 Year From Orig ina Mammogram Procedure(s): MM tomosynthesis screening BI Accession Number(s): [id number] cc: Aaron Carcamo MD EXAMINATION: MM SCREENING [...] OV> 03/01/252009 DD/ 1430 TD/TT: 02/20/25 1510 Head Of Operation And Logistics: Procedure Note Donotuseinterpreter, Image - 03/01/2025 [facility] [address] [place] [address] Mammography Report Signed Patient: Zee Villanueva AMR#: [id number] : 1975Acct:[id number] Age/Sex: 49 / FADM Date: 02/20/25 Loc: HO.MAMMO Attending Dr: Aaron Carcamo MD Ordering Physician: Aaron Carcamo MDResu lts: 1Negative Date of Service: 02/20/25Follow Up: 1 Year From Orig inal Mammogram Procedure(s): MM tomosynthesis screening BI Accession Number(s): [id number] cc: Aaron Carcamo MD EXAMINATION: MM SCREENING [...] Shari Modi MD 03/01/2025 08:10 PM EDT RP Workstation: Chideo Dictated By: Shari Modi MD Signed By: <Electronically signed by Shari Modi MD in OV> 03/01/252009 DD/ 1430 TD/TT: 02/20/25 1510 Head Of Operation And Logistics: Aaron Harris MD IMG BI PROCEDURES Satya lauren Result - Final * Hepatitis Panel, General (12/28/2024 2:24 PM EDT) Hepatitis A IgM Nonreactive Nonreactive [facility] Comment:IgM antibodies to LUTHER V not detected; does not exclude earlyacute or recovered HAV infection. ~Hepatitis B Surface Antibody NONREACTIVE Nonreactive [facility] Comment:Nonreactive: < 8.00 mIU/mL Hepatitis B Core Antibody Nonreactive Nonreactive [facility] Hepatitis C Antibody Nonreactive Nonreactive [facility] Comment:Antibodies to HCV no t detected; does not exclude early acuteHCV infection. Hepatitis B Surface Ag Negative Negative [facility] 12/28/2024 2:24 PM EDT 12/28/2024 2:26 PM EDT us Generic External Data Provider LAB BLOOD ORDERAB LES Final Result [facility] [address] [place] [phone] * (ABNORMAL) Lipid Panel, Standard (12/28/2024 2:24 PM EDT) Triglycerides 138 <150 mg/dL [facility] Comment:Desirable Triglyceri de: less than 150 mg/dLBorderline High Triglyceride 150-199 mg/dLHigh Triglyceride: 200-499 mg/dLVery High Triglyceride: greater than or equal to 5OO mg/dL Cholesterol 199 <200 mg/dL [facility] Comment:Desirable Cholestero l: less than 200 mg/dLBorderline High Cholesterol: 200-239 mg/dLHigh Cholesterol: greater than 239 mg/dL LDL Cholesterol Calculated 121(H) <100 mg/dL [facility] Comment:Desirable LDL: less than 100 mg/dLNear Optimal/Above Optimal LDL: 110- 129 mg/dLBorderline High LDL: 130-159 mg/dLHigh LDL: 160-189 mg/dLVery High LDL: greater than or equal to 190 mg/dL HDL Cholesterol 51 >40 mg/dL [facility] Comment:Desirable HDL: great er than 40 mg/dL Note: This HDL assay may give artificially low results in patients with liver disease. Blood Venous blood specimen / Unknown 12/28/2024 2:24 PM EDT 12/28/2024 2:26 PM EDT Aaron Harris MD LAB BLOOD ORDERABLES Final Result [facility] [address] [place] [phone] * HIV AB/AG (02/26/2020 1:03 PM EDT) [facility] HIV AG/AB NONREACTIVE NR FOUNDAT[facility] ON [...] of detection of this assay. The [employer] HIV Ag/Ab Combo assay result and supplemental assay results should be interpreted in conjunction with the patient's clinical presentation, history and other laboratory results. If the results are inconsistent with clinical evidence, additional testing is suggested to confirm the result. 02/26/2020 1:03 PM EDT us Aaron Harris MD HISTORICAL/NON ORDERA BLE LABS Final Result [facility] [address] from Last 3 Months or Most Recently Relevant to Health Maintenance Insurance [facility] C3 DENTAL-[facility] MEDICAID STAND ADULT [address] [place] [address] GENERIC TPL [address] [place] [id number] Care Teams Historic Sites Registrar Relationship Specialty Start Date End Date Aaron Pisano MD [address] [place] [address] PCP - General Internal Medicine 05/10/14 Antonietta Lim Ssn/Ssbn Weapons Equipment OperatorImaging Assistant 09/18/24
--- OUTSIDE RECORDS SUMMARY | 2025-05-08 13:50 | XMS_ITS | Encounter Summary ---
Author Organization [employer] Address [address] [facility] 7 [place] [address] Care Team Providers Care Diabetes Education Coordinator Name Role Phone Aaron Pisano MD Primary Care Provide r Reason for Visit * Reason Onset Date Comments Med Refill 01/07/2025 Encounter Details Date Type Department Care Team (Late st Contact Info) Description 01/07/2025 Refill [facility] [address] [place] [address] Fam Hartman MD [address] [place] [phone] Chronic midline low back pain without sciatica [...] Office Visit [facility] [address] [place] [address] 05/31/2025 11:30 AM EDT Clinical Support [facility] [address] [place] [address] Altagracia Mancilla RN [address] [place] [address] 08/29/2025 12:45 PM EST Office Visit [facility] [address] [place] [address] Zhanna Hernandez documented as of this encounter [...] documented as of this encounter Care Teams Diabetes Education Coordinator Relationship Specialty Start Date End Date Aaron Pisano MD [address] [place] [address] PCP - General Internal Medicine 05/10/14 Antonietta Lim Bin [employer] Winder 09/18/24 documented as of this encounter
--- OUTSIDE RECORDS SUMMARY | 2025-05-08 13:50 | XMS_ITS | Encounter Summary ---
Demographics Address [address] [place], [place] [address] [place] [address] Mobile Phone Email Address Preferred Language en Marital Status Single Sabianist Affiliation Unknown Race White Ethnic Group Unknown Author Organization [employer] Address [address] [facility] [address] [place] [address] Care Team Providers Care Track Leader Name Role Phone Aaron Pisano MD Primary Care Provide r Encounter Details Date Type Department Care Team ([facility] Contact Info) Description 05/03/2025 Orders Only [facility] External Provider, [facility] Social History Tobacco Use Types Packs/Day Years [...] 2:40 PM EDT Office Visit [facility] [address] [place] [address] 05/31/2025 11:30 AM EDT Clinical Support [facility] [address] [place] [address] Altagracia Mancilla RN [address] [place] [address] 08/29/2025 12:45 PM EST Office Visit [facility] [address] [place] [address] Zhanna Hernandez documented as of this encounter Goals Goal Patient Goal Type Associated Problems Recent Progress Patient-Stated? Author Blood Pressure < 140/90 Blood Pressure 110/68( 025 11:12 AM EDT) No Giovanna Banks, PharmD documented as of this encounter Procedures Procedure Name Priority Date/Time Associated Diagnosis Comments CT SINUS WO CONTRAST Routine 05/03/2025 4:22 PM EDT documented in this encounter Results * CT Sinus w/o Contrast (05/03/2025 4:22 PM EDT) Anatomical Region Laterality Modality Computed Tomogra phy 05/03/2025 4:22 PM EDT Narrative 05/03/2025 5:14 PM EDT [address] [address] [address] Scan Report Signed Patient: Zee Villanueva MR#: [id number] : 1975 Acct:[id number] Age/Sex: 49 / F ADM Date: 05/03/25 Loc: HO.CT Attending Dr: Kerry James MD Ordering Physician: Kerry James MD Date of Service: 05/03/25 Procedure(s): CT sinus wo IV con Accession Number(s): [id number] cc: Kerry James MD; Aaron Carcamo MD Report Number: [id number]: Total DLP = 92.00 mGy-cm Reason for [...] Jamie Piedra MD 05/03/2025 05:11 PM EDT Dictated By: Jamie Piedra MD Signed By: <Electronically signed by Jamie Piedra MD in OV> 05/03/25 1711 DD/ 1622 TD/TT: 05/03/25 1640 Car Bracer: Procedure Note Donotuseinterpreter, Image - 05/03/[address] [address] [address] Scan Report Signed Patient: Zee Villanueva AMR#: [id number] : 1975Acct:[id number] Age/Sex: 49 / FADM Date: 05/03/25 Loc: HO.CT Attending Dr: Kerry James MD Ordering Physician: Kerry James MD Date of Service: 05/03/25 Procedure(s): CT sinus wo IV con Accession Number(s): [id number] cc: Kerry James MD; Aaron Carcamo MD Report Number: [id number]: Total DLP = 92.00 mGy-cm Reason for [...] 05/03/25 1711 DD/ 1622 TD/TT: 05/03/25 1640 Car Bracer: [facility] External Provider IMG CT PROCEDURES Final Result documented in this encounter Visit Diagnoses Not on filedocumented in this encounter Additional Health Concerns Assessment Noted Time PHQ-9 Depression Total Score: 2 06/05/20 24 8:38 AM EDT documented as of this encounter Care Teams Track Leader Relationship Specialty Start Date End Date Aaron Pisano MD [address] [place] [address] PCP - General Internal Medicine 05/10/14 Antonietta Lim Patrol LadyObstetrical Anesthesiologist 09/18/24 documented as of this encounter
--- OUTSIDE RECORDS SUMMARY | 2025-05-08 13:50 | XMS_ITS | Encounter Summary ---
Author Organization [employer] Address [address] [facility] 7t [place] [address] Care Team Providers Care Client Support Analyst Name Role Phone Aaron Pisano MD Primary Care Provide r Encounter Details Date Type Department Care Team (Latest Contact Info) Description 05/08/2025 Travel Social History Tobacco Use Types Packs/Day [...] 2:40 PM EDT Office Visit [facility] [address] [place] [address] 05/31/2025 11:30 AM EDT Clinical Support [facility] [address] [place] [address] Altagracia Mancilla, GRACIELA [address] [place] [address] 08/29/2025 12:45 PM EST Office Visit [facility] [address] [place] [address] Zhanna Hernandez documented as of this encounter [...] documented as of this encounter Care Teams Client Support Analyst Relationship Specialty Start Date End Date Aaron Pisano MD [address] [place] [address] PCP - General Internal Medicine 05/10/14 Antonietta Lim Wood HandlerCable Tester 09/18/24 documented as of this encounter
[2025-05-08 16:14] LABS: MANUAL DIFF FLAG NO
[2025-05-08 16:15] LABS: Hematocrit 40.1 % (37.0-47.0); Hematocrit 40.9 % (37.0-47.0); Hemoglobin 13.3 g/dl (12.0-16.0); Hemoglobin 13.4 g/dl (12.0-16.0); Imm Gran Abs Auto 0.05 X10*3/uL (0.00-0.03); Imm Gran Abs Auto 0.07 X10*3/uL (0.00-0.03); Imm Gran Pct Auto 0.4 % (0.0-0.4); Imm Gran Pct Auto 0.6 % (0.0-0.4); Lymphocytes Absolute Auto 2.3 X10*3/uL (1.2-4.9); Mean Corpuscular HGB Conc 32.5 g/dl (31.0-35.0); Mean Corpuscular HGB Conc 33.4 g/dl (31.0-35.0); Mean Corpuscular Hemoglobin 27.2 pg (27.0-33.0); Mean Corpuscular Hemoglobin 27.4 pg (27.0-33.0); Mean Corpuscular Volume 82.0 fL (80.0-98.0); Mean Corpuscular Volume 83.6 fL (80.0-98.0); NRBC Abs Auto 0.000 X10*3/uL (0.0-0.012); NRBC Pct Auto 0.0 /100WBC (0.0-0.2); Platelet Count 337 X10*3/uL (160-400); Platelet Count 350 X10*3/uL (160-400); Red Blood Count 4.89 X10*6/uL (4.20-5.50); White Blood Count 11.3 X10*3/uL (4.8-10.8); White Blood Count 11.6 X10*3/uL (4.8-10.8)
[2025-05-08 16:16] LABS: Hematocrit 40.0 % (37.0-47.0); Hemoglobin 13.4 g/dl (12.0-16.0); Imm Gran Abs Auto 0.06 X10*3/uL (0.00-0.03); Imm Gran Pct Auto 0.5 % (0.0-0.4); Lymphocytes Absolute Auto 2.4 X10*3/uL (1.2-4.9); Mean Corpuscular HGB Conc 33.5 g/dl (31.0-35.0); Mean Corpuscular Hemoglobin 27.5 pg (27.0-33.0); Mean Corpuscular Volume 82.0 fL (80.0-98.0); NRBC Abs Auto 0.000 X10*3/uL (0.0-0.012); NRBC Pct Auto 0.0 /100WBC (0.0-0.2); Platelet Count 338 X10*3/uL (160-400); Red Blood Count 4.88 X10*6/uL (4.20-5.50); White Blood Count 11.7 X10*3/uL (4.8-10.8)
[2025-05-08 16:25] LABS: Alanine Aminotransferase 19 U/L (0-31); Albumin Level 4.5 g/dL (3.5-5.0); Alkaline Phosphatase 101 U/L (39-117); Anion Gap 13 (12-20); Aspartate Amino Transferase 20 U/L (5-31); Blood Urea Nitrogen 16 mg/dL (9-16); Calcium 9.7 mg/dL (8.4-10.2); Carbon Dioxide 29 mmol/L (22-29); Chloride 103 mmol/L (96-108); Estimated Glomerular Filt Rate 59; Potassium 3.3 mmol/L (3.3-5.1); Sodium 142 mmol/L (135-145); Total Protein 7.7 g/dL (6.5-8.0)
[2025-05-08 16:26] LABS: Alanine Aminotransferase 18 U/L (0-31); Albumin Level 4.5 g/dL (3.5-5.0); Alkaline Phosphatase 101 U/L (39-117); Anion Gap 12 (12-20); Aspartate Amino Transferase 21 U/L (5-31); Blood Urea Nitrogen 16 mg/dL (9-16); Calcium 9.7 mg/dL (8.4-10.2); Carbon Dioxide 30 mmol/L (22-29); Chloride 103 mmol/L (96-108); Estimated Glomerular Filt Rate > 60; Potassium 3.3 mmol/L (3.3-5.1); Sodium 142 mmol/L (135-145); Total Protein 7.7 g/dL (6.5-8.0)
[2025-05-08 16:27] LABS: Alanine Aminotransferase 18 U/L (0-31); Albumin Level 4.5 g/dL (3.5-5.0); Alkaline Phosphatase 101 U/L (39-117); Anion Gap 13 (12-20); Aspartate Amino Transferase 22 U/L (5-31); Blood Urea Nitrogen 16 mg/dL (9-16); Calcium 9.7 mg/dL (8.4-10.2); Carbon Dioxide 29 mmol/L (22-29); Chloride 103 mmol/L (96-108); Estimated Glomerular Filt Rate > 60; Potassium 3.3 mmol/L (3.3-5.1); Sodium 142 mmol/L (135-145); Total Protein 7.8 g/dL (6.5-8.0)
[2025-05-10 21:33] LABS: Proteinase 3 PR3 Antibodies <1.0 AI
[2025-05-14 17:04] LABS: Cryoglobulin, Qual Negative (Negative)
== END 2025-05-08 12:23 | disposition home or self-care (01) ==
LOC: HO.HHCL 12:22
PROVIDERS: Internal Medicine Gastroenterology; Student in an Organized Health Care Education/Training Program; PCP Internal Medicine; Visit Provider Internal Medicine
DX: K75.81 Nonalcoholic steatohepatitis (NASH) (principal); M31.0 Hypersensitivity angiitis; R19.7 Diarrhea, unspecified; I77.6 Arteritis, unspecified
CPT/HCPCS: 36415; 80053; 82306; 82595; 84443; 85025; 85652; 86021; 86140

== ENCOUNTER 2025-05-30 13:14 | Outpatient (REF) | payer MEDICAID, SELFPAY | END 2025-05-30 13:15 | disposition home or self-care (01) | LOC: HO.LAB 13:14 | PROVIDERS: Absent Provider Internal Medicine Gastroenterology; PCP Internal Medicine; Visit Provider Emergency Medicine | DX: J45.909 Unspecified asthma, uncomplicated (principal); E66.9 Obesity, unspecified; R06.83 Snoring; R53.83 Other fatigue; Z87.891 Personal history of nicotine dependence; Z79.899 Other long term (current) drug therapy | CPT/HCPCS: 36415; 82306; 84443; 99212 ==

== ENCOUNTER 2025-05-30 14:07 | Outpatient (AMB) | payer MEDICAID, SELFPAY ==
--- NOTE | 2025-05-30 14:15 | MHC.OFFVIS ---
Intake Visit Reasons: Asthma Intake Note: pt is here for follow up and states she would like you to know that she does not smoke cigarettes quit 2021. she is feeling that she has a lot of trouble at night, 9/2 dx with covid, and she states a lot of changes going on, lack of appetite, fatigue all day and night. she is waking up at night with issues with phlegm a lot of phelgm. Steam Shovel Operator Required: No Officer Captain: Officer Captain offered & declined Allergies tramadol Allergy (Intermediate, Verified 05/30/25 14:44) swelling buspirone (From BuSpar) Allergy (Mild, Verified 05/30/25 14:44) rash lamotrigine (From Lamictal) Allergy (Mild, Verified 05/30/25 14:44) Unknown naproxen Allergy (Unknown, Verified 05/30/25 14:44) anaphylaxis NSAIDS (Non-Steroidal Anti-Inflamma (NSAIDS (NON-STEROIDAL ANTI-INFLAMMA) Allergy (Unknown, Verified 05/30/25 14:44) ANAPHYLAXIS Penicillins (PENICILLINS) Allergy (Unknown, Verified 05/30/25 14:44) ANAPHYLAXIS methotrexate Allergy (Verified 05/30/25 14:44) Rash Medication List - Last Reconciled 05/30/25 by Kerry James MD acetaminophen ER (Tylenol Arthritis Pain) 650 mg PO Q8H PRN albuterol sulfate 2.5 mg (3 mL) inhalation Q6-8H 30 days albuterol sulfate 90 mcg/actuation (Ventolin HFA) 2 puffs PO Q4-6H PRN baclofen 10 mg PO BID cetirizine (Zyrtec) 10 mg PO DAILY cholecalciferol (vitamin D3) 50 mcg PO DAILY 30 days dicyclomine 10 mg PO BID PRN diphenhydramine HCl (Laureen-Dryl) 25 mg PO TID PRN esomeprazole magnesium 40 mg PO BID fluticasone propion-salmeterol 250-50 mcg/dose (Advair Diskus) 1 ea PO BID fluticasone propionate 50 mcg/actuation 1 spray intranasal BID furosemide (Lasix) 40 mg PO DAILY hydroxyzine HCl 10 mg PO QID PRN loperamide (Anti-Diarrheal (loperamide)) mg PO losartan 25 mg PO DAILY methylcellulose (laxative) (Citrucel Sugar Free oral powder) 2 grams PO DAILY metronidazole 500 mg PO Q8H mirabegron ER (Myrbetriq) 25 mg PO QAM montelukast 10 mg PO BEDTIME ondansetron 4 mg PO Q8H PRN oxycodone 5 mg PO Q6H PRN rifaximin 550 mg PO TID 2 weeks sumatriptan succinate 50 mg orally once a day as needed; 30 days topiramate 100 mg PO BEDTIME valacyclovir (Valtrex) 1,000 mg PO DAILY varenicline tartrate 1 mg PO DAILY zolpidem ER 12.5 mg PO BEDTIME PRN Do you need a note to return to daycare/school/sports/work: No HPI HPI Asthma: Details: THIS 49 YEARS OLD FEMALE IS HERE FOR FOLLOW-UP FOR HER BRONCHIAL ASTHMA/ALLERGIC RHINITIS. HER MAIN COMPLAINT IS THAT SHE COUGHS AND BRINGS UP LOT OF PHLEGM . IT IS COPIOUS BUT CLEAR. FOR HER CHRONIC ALLERGIC RHINITIS SHE IS USING ALLOGRAFT THESE DAYS WHICH SHE TOLERATES BETTER. SHE IS USING FLONASE OFF AND ON BECAUSE IT CAUSES SOME BLEEDING WHEN SHE USES CONTINUOUSLY. BREATHING HAS BEEN STABLE AND SHE DENIES ANY WHEEZING ATTACKS. MOST OF THE CONVERSATION WAS ABOUT HER FRUSTRATION ABOUT NOT LOSING WEIGHT, BEING WEAK AND TIRED MOSTLY, AND COUGH NOTED ABOVE. SHE WANTED TO MAKE SURE THAT WE HAVE DOCUMENTED THAT SHE QUIT SMOKING IN 2021 . [facility] Medical History GERD (gastroesophageal reflux disease) Asthma exacerbation Sinusitis Somnolence, daytime Snoring Morbid obesity Cough Asthma Allergic rhinitis Obesity (BMI 30-39.9) PCOS (polycystic ovarian syndrome) Vitamin D deficiency Surgical History History of bladder surgery Hx of dilation and curettage Hx of section Hx laparoscopic cholecystectomy Hx of tooth extraction Hx of hysterectomy Family History Father Heart disease Mother Diabetes mellitus Raynaud disease Paternal Grandfather Diabetes mellitus Paternal Uncle Diabetes mellitus Social History Household Members: Children Housing: House Do you presently have visiting nurse or other home services: No (appointment for HUMAN SERVICES PROFESSIONAL, in progress) Alcohol intake: current Alcohol intake frequency: holidays/special occasions only Alcohol type: wine Patient Tobacco Use Status: Former Tobacco user Tobacco use type: Cigarette Cigarettes Per Day: 0 Second Hand Smoke Exposure: No Substance Use Type: Marijuana Advance Directives Date on File: 01/12/22 service: No Current occupational status: unemployed Review of Systems Const All systems reviewed & are unremarkable except as noted in HPI and below Reports headache(s) (Off and on) Eyes Reports no additional complaints ENT Reports headache(s) (Off and on) and Reports nasal congestion (Mild intermittent) Card Denies chest pain, Denies irregular heart rhythm and Denies leg edema Resp Reports as per HPI GI Reports no additional complaints Reports urinary incontinence Musc Reports back pain and Reports myalgias Skin/Breast Reports system reviewed and no additional complaints, except as documented Neuro Reports headache(s) (Off and on) Psych Reports depression and Reports other (Insomnia) Endo Reports other (Being treated for type 2 diabetes mellitus) Physical Exam Const Other: MORBIDLY OBESE, APPEARS VERY UNCOMFORTABLE, DUE TO PAIN IN THE BACK AND ALSO, POINTS TO BOTH MAXILLARY AREAS WHERE IT HURTS. General: no acute distress, alert and awake Orientation/consciousness: patient oriented x3 HEENT Head: Yes normal to inspection General nose exam: No nasal polyps present and No nasal discharge present Mouth: oropharynx normal Throat: Yes posterior oropharynx normal Eyes General: appearance normal, both eyes and all related structures Neck Neck: Yes normal visual inspection, Yes no lymphadenopathy, Yes trachea midline and Yes no JVD Thyroid: Thyroid normal Chest Chest palpation & inspection: normal inspection of the chest, normal palpation of entire chest wall and no tenderness Resp Other: PERCUSSION NOTE IS RESONANT. BREATH SOUNDS DIMINISHED OVER BOTH BASILAR AREAS. ON AUSCULTATION NO WHEEZES OR RHONCHI ARE HEARD TODAY. Cardio Palpation: normal PMI Rate: regular rate Rhythm: regular rhythm Heart sounds: no gallops and no murmurs GI Palpation (GI): Soft to palpation, nontender, No hepatosplenomegaly present, no masses and Other GI palpation findings present (ABDOMEN IS MODERATELY OBESE AND PROTUBERANT) Auscultation: normal bowel sounds Back/Spine/Pelvis Thoracic/Lumbar Spine: thoracic and lumbar spine normal to inspection, thoraco-lumbar ROM limited and thoraco-lumbar spasm Skin General skin exam: no rashes or lesions noted Neuro General: patient oriented x3 and no focal motor deficits Cranial nerves: Yes CN's II-XII intact bilaterally Extrem General: Yes normal to inspection, Yes no clubbing, cyanosis or edema and Yes no calf tenderness Right upper extremity: no edema Psych Appearance: grossly normal and well kempt Speech and movement: Normal speech and movement present Assessment & Plan Assessment & Plan (1) Obesity (BMI 30-39.9): Comment: SHE DOES HAVE MORBID OBESITY, NEEDS TO LOSE WEIGHT BUT NOT POSSIBLE FOR HER AT THIS TIME, ESPECIALLY BECAUSE OF ONGOING BACK PAIN. HAS BEEN ON STEROIDS PREVIOUSLY WHICH SHE HAS STOPPED. Code(s): E66.9 - Obesity, unspecified Category: Medical Plan: Still encouraged to watch diet and try to lose some weight. (2) Allergic rhinitis: Comment: Chronic persistent, problem, around the year, but seems to be controlled. Code(s): J30.9 - Allergic rhinitis, unspecified Category: Medical Plan: Use Laura 180 mg once a day loratadine 10 mg once a day Also continue to use montelukast 10 mg daily. (3) Asthma: Comment: Chronic persistent bronchial asthma . At present seems to be fairly well controlled with continued use of Advair. No significant wheezes are heard on the chest. She claims to be waking up once or twice per night with cough and has to use the albuterol inhaler or albuterol in the nebulizer. Code(s): J45.909 - Unspecified asthma, uncomplicated Category: Medical Plan: Continue Advair 250-51 inhalation b.i.d. Albuterol HFA 2 puffs Q 6 hours p.r.n.. Alternatively may use albuterol solution in the nebulizer Q 6 hours p.r.n. (4) Snoring: Comment: She does have snoring at night but does not have obstructive sleep apnea. Code(s): R06.83 - Snoring Category: Medical Plan: Told that she has to use the decongestant or antihistaminic as needed to minimize the nasal congestion. Also told that she has to lose weight, and try to sleep in lateral position (5) Cough: Comment: Cough is nonspecific, intermittent, contributed by allergic rhinitis as well as bronchial asthma. Complains of excessive thick mucus which she can not bring up. The mucus is white. 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 I will also order CT scan of the sinuses Code(s): R05 - Cough Category: Medical Plan: Continue the present medications. No need to use any special cough medicine Coding Level of Care Code Est Pt Level 3 (50321) Diagnoses Obesity (BMI 30-39.9) E66.9 Allergic rhinitis J30.9 Asthma J45.909 Snoring R06.83 Cough R05
--- OUTSIDE RECORDS SUMMARY | 2025-05-30 17:59 | XMS_ITS | Encounter Summary ---
Author Organization [employer] Address [address] [facility] 7t [place] [address] Care Team Providers Care Record Label Internship Name Role Phone Aaron Pisano MD Primary Care Provide r Reason for Visit * Reason Comments Med Refill Encounter Details Date Type Department Care Team ([facility] st Contact Info) Description 04/04/2025 Refill [facility] [address] [place] [address] Aaron Pisano MD [address] [place], [place] [phone] Chronic midline low back pain without sciatica [...] Care Team (Late st Contact Info) Description 05/31/2025 11:30 AM EDT Clinical Support [facility] [address] [place] [phone] Altagracia Mancilla RN [address] [place] [address] 08/29/2025 12:45 PM EST Office Visit [facility] [address] [place] [address] Zhanna Hernandez documented as of this encounter Goals Goal Patient Goal Type Associated Problems Recent Progress Patient-Stated? Author Blood Pressure < 140/90 Blood Pressure 130/83( 025 3:21 PM EDT) No Giovanna Banks PharmD documented as of this encounter Visit Diagnoses Diagnosis Chronic midline low back pain without sciatica documented in this encounter Additional Health Concerns Assessment Noted Time PHQ-9 Depression Total Score: 2 06/05/20 8:38 AM EDT documented as of this encounter Care Teams Record Label Internship Relationship Specialty Start Date End Date Aaron Pisano MD [address] [place] [address] PCP - General Internal Medicine 05/10/14 Antonietta Lim IronmolderMix Crusher Operator 09/18/24 documented as of this encounter
--- OUTSIDE RECORDS SUMMARY | 2025-05-30 17:59 | XMS_ITS | Encounter Summary ---
Author Organization [employer] Address 75 [facility] 7t [place] [address] Care Team Providers Care Cryptanalyst Name Role Phone Aaron Pisano MD Primary Care Provide r Reason for Visit * Reason Comments Med Refill Encounter Details Date Type Department Care Team ([facility] st Contact Info) Description 01/30/[address] [facility] [address] [place] [address] Aaron Pisano MD [address] [place], [place] [phone] Chronic midline low back pain without sciatica [...] Description 05/31/2025 11:30 AM EDT Clinical Support [facility] [address] [place] [phone] Altagracia Mancilla RN [address] [place] [address] 08/29/2025 12:45 PM EST Office Visit [facility] [address] [place] [address] Zhanna Hernandez documented as of this encounter Goals Goal Patient Goal Type Associated Problems Recent Progress Patient-Stated? Author Blood Pressure < 140/90 Blood Pressure 130/83( 025 3:21 PM EDT) No Giovanna Banks, SohamD documented as of this encounter Visit Diagnoses Diagnosis Chronic midline low back pain without sciatica documented in this encounter Additional Health Concerns Assessment Noted Time PHQ-9 Depression Total Score: 12 024 1:46 PM EST documented as of this encounter Care Teams Cryptanalyst Relationship Specialty Start Date End Date Aaron Pisano MD [address] [place] [address] PCP - General Internal Medicine 05/10/14 Antonietta Lim Chief Radiologic TechnologistDelicatessen Clerk 09/18/24 documented as of this encounter
--- OUTSIDE RECORDS SUMMARY | 2025-05-30 17:59 | XMS_ITS | Encounter Summary ---
Author Organization [employer] Address [address] [facility] 7t [place] [address] Care Team Providers Care Pe Electrical Engineer Name Role Phone Aaron Pisano MD Primary Care Provide r Reason for Visit * Reason Comments Med Refill Encounter Details Date Type Department Care Team ([facility] st Contact Info) Description 03/05/2025 Refill [facility] [address] [place] [address] Aaron Pisano MD [address] [place], [place] [phone] Chronic midline low back pain without sciatica [...] Description 05/31/2025 11:30 AM EDT Clinical Support [facility] [address] [place] [address] Altagracia Mancilla RN [address] [place] [address] 08/29/2025 12:45 PM EST Office Visit [facility] [address] [place] [address] Zhanna Hernandez documented as of this encounter [...] documented as of this encounter Care Teams Pe Electrical Engineer Relationship Specialty Start Date End Date Aaron Pisano MD [address] [place] [address] PCP - General Internal Medicine 05/10/14 Antonietta Lim Medical DirPacker Inspector 09/18/24 documented as of this encounter
--- OUTSIDE RECORDS SUMMARY | 2025-05-30 17:59 | XMS_ITS | Encounter Summary ---
Author Organization [employer] Address [address] [place] [address] 7 [place] [address] Care Team Providers Care Gym Instructor Name Role Phone Aaron Pisano MD Primary Care Provide r Encounter Details Date Type Department Care Team (Latest Contact Info) Description 07/16/[address] [facility] CONVERSIONS Dental, Provider, DDS Social History [...] Description 05/31/2025 11:30 AM EDT Clinical Support [facility] [address] [place] [address] Altagracia Mancilla RN 505 [place] [address] 08/29/2025 12:45 PM EST Office Visit [facility] [address] [place] [address] Zhanna Hernandez documented as of this encounter Visit Diagnoses Not on filedocumented in this encounter Care Teams Gym Instructor Relationship Specialty Start Date End Date Aaron Pisano MD [address] [place] [address] PCP - General Internal Medicine 05/10/14 Antonietta Lim Milling Machine Set Up OperatorInk Grinder 09/18/24 documented as of this encounter
--- OUTSIDE RECORDS SUMMARY | 2025-05-30 17:59 | XMS_ITS | Encounter Summary ---
Author Organization [employer] Address [address] [facility] 7t [place] [address] Care Team Providers Care Acoustical Carpenter Name Role Phone Aaron Pisano MD Primary Care Provide r Reason for Visit * Reason Onset Date Comments Reschedule 03/01/2024 Encounter Details Date Type Department Care Team ([facility] st Contact Info) Description 03/01/2024 Telephone [facility] [address] [place] [address] Aaron Pisano MD [address] [place] [address] Reschedule Social History Tobacco Use Types Packs/Day [...] a call back in order to r/s PATIENT CARRIER appt documented in this encounter Plan of Treatment Upcoming Encounters Date Type Department Care Team (Late st Contact Info) Description 05/31/2025 11:30 AM EDT Clinical Support [facility] [address] [place] [address] Altagracia Mancilla RN [address] [place] [address] 08/29/2025 12:45 PM EST Office Visit [facility] [address] [place] [address] Zhanna Hernandez documented as of this encounter [...] documented as of this encounter Care Teams Acoustical Carpenter Relationship Specialty Start Date End Date Aaron Pisano MD 230 [place] [address] PCP - General Internal Medicine 05/10/14 Antonietta Lim Purchasing Contracting ClerkRetread Operator 09/18/24 documented as of this encounter
--- OUTSIDE RECORDS SUMMARY | 2025-05-30 17:59 | XMS_ITS | Encounter Summary ---
Author Organization [employer] Address [address] [facility] 7t [place] [address] Care Team Providers Care Senior Net Web Developer Name Role Phone Aaron Pisano MD Primary Care Provide r Reason for Visit * Reason Onset Date Comments Med Refill 04/02/2025 Encounter Details Date Type Department Care Team ([facility] st Contact Info) Description 04/02/2025 Refill [facility] [address] [place] [address] Aaron Pisano MD [address] [place] [address] Diarrhea in adult patient Social History Tobacco [...] Description 05/31/2025 11:30 AM EDT Clinical Support [facility] [address] [place] [address] Altagracia Mancilla RN 505 [place] [address] 08/29/2025 12:45 PM EST Office Visit [facility] [address] [place] [address] Zhanna Hernandez documented as of this encounter [...] as of this encounter Care Teams Senior Net Web Developer Relationship Specialty Start Date End Date Aaron Pisano MD [address] [place] [address] PCP - General Internal Medicine 05/10/14 Antonietta Lim Case Manager SpecialistRn Clinical Research 09/18/24 documented as of this encounter
--- OUTSIDE RECORDS SUMMARY | 2025-05-30 17:59 | XMS_ITS | Encounter Summary ---
Author Organization [employer] Address 75 [facility] 7t [place] [address] Care Team Providers Care Runner Worker Name Role Phone Aaron Pisano MD Primary Care Provide r Reason for Visit * Reason Onset Date Comments Med Refill 11/16/2022 Encounter Details Date Type Department Care Team ([facility] st Contact Info) Description 11/16/2022 Telephone [facility]INE [address] [place] [phone] Aaron Pisano MD [address] [place] [phone] Med Refill Social History Tobacco Use Types [...] MG immediate release tablet Please sent to [facility] - [place], [place] - [address] [facility] documented in this encounter Plan of Treatment Upcoming Encounters Date Type Department Care Team (Late st Contact Info) Description 05/31/2025 11:30 AM EDT Clinical Support [facility] [address] [place] [address] Altagracia Mancilla, GRACIELA [address] [place] [address] 08/29/2025 12:45 PM EST Office Visit [facility] [address] [place] [address] Zhanna Hernandez documented as of this encounter Visit Diagnoses Not on filedocumented in this encounter Care Teams Runner Worker Relationship Specialty Start Date End Date Aaron Pisano MD [address] [place] [address] PCP - General Internal Medicine 05/10/14 Antonietta Lim Pharmaceutical AssistantInsole And Heel Stiffener 09/18/24 documented as of this encounter
--- OUTSIDE RECORDS SUMMARY | 2025-05-30 17:59 | XMS_ITS | Encounter Summary ---
Author Organization [employer] Address [address] [place] [address] 7t [place] [address] Care Team Providers Care Interior Design Principal Name Role Phone Aaron Pisano MD Primary Care Provide r Reason for Visit * Reason Comments Med Refill Encounter Details Date Type Department Care Team ([facility] Contact Info) Description 02/18/2023 Refill [facility] [address] [place] [address] Aaron Pisano MD [address] [place] [phone] Social History Tobacco Use Types Packs/Day Years [...] Upcoming Encounters Date Type Department Care Team ([facility] Contact Info) Description 05/31/2025 11:30 AM EDT Clinical Support [facility] [address] [place] [address] Altagracia Mancilla, GRACIELA [address] [place] [address] 08/29/2025 12:45 PM EST Office Visit [facility] 230 [place] [address] Zhanna Hernandez documented as of this encounter Visit Diagnoses Not on filedocumented in this encounter Care Teams Interior Design Principal Relationship Specialty Start Date End Date Aaron Pisano MD [address] [place] [address] PCP - General Internal Medicine 05/10/14 Antonietta Lim Rope Laying Machine OperatorCorporate Safety Director 09/18/24 documented as of this encounter
--- OUTSIDE RECORDS SUMMARY | 2025-05-30 17:59 | XMS_ITS | Encounter Summary ---
Author Organization [employer] Address [address] [facility] 7t [place] [address] Care Team Providers Care Varnish Maker Helper Name Role Phone Aaron Pisano MD Primary Care Provide r Reason for Visit * Reason Comments Med Refill Encounter Details Date Type Department Care Team ([facility] st Contact Info) Description 10/08/2024 Refill [facility] [address] [place] [address] Aaron Pisano MD [address] [place], [place] [phone] Diarrhea in adult patient; Chronic midline low [...] Description 05/31/2025 11:30 AM EDT Clinical Support [facility] [address] [place] [phone] Altagracia Mancilla RN 505 [place] [address] 08/29/2025 12:45 PM EST Office Visit [facility] ADULT [facility]ENT[facility] [address] [place] [address] Zhanna Hernandez documented as of this encounter [...] documented as of this encounter Care Teams Varnish Maker Helper Relationship Specialty Start Date End Date Aaron Pisano MD [address] [place] [address] PCP - General Internal Medicine 05/10/14 Antonietta Lim Founder And Chief Executive OfficerHelminthologist 09/18/24 documented as of this encounter
--- OUTSIDE RECORDS SUMMARY | 2025-05-30 17:59 | XMS_ITS | Encounter Summary ---
Author Organization [employer] Address 75 [facility] 7t [place] [address] Care Team Providers Care Fruit Shipper Name Role Phone Aaron Pisano MD Primary Care Provide r Reason for Visit * Reason Onset Date Comments Nurse Triage 02/21/2023 Encounter Details Date Type Department Care Team ([facility] st Contact Info) Description 02/21/[address] [facility] MEDICINE [address] [place] [phone] Aaron Pisano MD [address] [place] [address] Nurse Triage Social History Tobacco Use Types [...] 4:45 PM EDT Please assist with obtaining [facility] ED discharge notes for 02/10/23. 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 Pt sent to ER after visit with [facility]. * Telephone Encounter - Leora Campbell RN - 02/21/2023 4:39 PM EDT Call to Zee Villanueva , reports having vomiting since seen at [facility] ER. Per pt was given abx for UTI and zofran. Per pt completed abx. Per pt continues to have vomiting. 5 episodes of vomiting in last 24 hours. No blood or green bile in vomit. Pt still taking chantix. Pt offered WIC tomorrow. Pt declines needs appt 3 days out for PT1. Agrees to visit with [place] team provider. Reviewed home care advise and reasons to call back. Future Appointments Date Time Provider Department Center 02/25/2023 9:30 AM DUY Taveras MEDICINE [facility] 03/21/2023 1:00 PM Giovanna Payne PharmD MEDICINE [facility] 04/27/2023 3:00 PM Aniya Anderson RN MEDICINE [facility] Multiple (2) protocols were used on [...] accepted this outcome Please contact pt at [phone] Pt was at [facility] hospital on 02/10/2023 for same symptoms. documented in this encounter Plan of Treatment Upcoming Encounters Date Type Department Care Team (Late st Contact Info) Description 05/31/2025 11:30 AM EDT Clinical Support [facility] MEDICINE [address] [place] [address] Altagracia Mancilla, GRACIELA [address] [place] [address] 08/29/2025 12:45 PM EST Office Visit [facility] ADULT DENTAL [address] [place] [address] Zhanna Hernandez documented as of this encounter Visit Diagnoses Not on filedocumented in this encounter Care Teams Fruit Shipper Relationship Specialty Start Date End Date Aaron Pisano MD [address] [place] [address] PCP - General Internal Medicine 05/10/14 Antonietta Lim Teenage BabysitterIt Infrastructure Architect 09/18/24 documented as of this encounter
--- OUTSIDE RECORDS SUMMARY | 2025-05-30 17:59 | XMS_ITS | Encounter Summary ---
Author Organization [employer] Address [address] [place] [address] 7t [place] [address] Care Team Providers Care Scoop Driver Name Role Phone Aaron Pisano MD Primary Care Provide r Reason for Visit * Reason Comments Med Refill Encounter Details Date Type Department Care Team (Late st Contact Info) Description 03/15/2023 Refill [facility] MEDICINE [address] [place] [address] Aaron Pisano MD [address] [place] [address] Smoker Social History Tobacco Use Types Packs/Day [...] Description 05/31/2025 11:30 AM EDT Clinical Support [facility] MEDICINE [address] [place] [address] Altagracia Mancilla RN 505 [place] [address] 08/29/2025 12:45 PM EST Office Visit [facility] ADULT DENTAL [address] [place] [address] Zhanna Hernandez documented as of this encounter Visit Diagnoses Diagnosis Smoker Tobacco use disorder documented in this encounter Care Teams Scoop Driver Relationship Specialty Start Date End Date Aaron Pisano MD [address] [place] [address] PCP - General Internal Medicine 05/10/14 Antonietta Lim Supervisor JoinersLeasing Consultant 09/18/24 documented as of this encounter
--- OUTSIDE RECORDS SUMMARY | 2025-05-30 17:59 | XMS_ITS | Encounter Summary ---
Author Organization [employer] Address 75 [facility] 7t [place] [address] Care Team Providers Care Rn Transitional Name Role Phone Aaron Pisano MD Primary Care Provide r Reason for Visit * Reason Onset Date Comments Med Refill 03/05/2025 Encounter Details Date Type Department Care Team ([facility] st Contact Info) Description 03/05/2025 Refill [facility] MEDICINE 230 [place] [address] Aaron Pisano MD [address] [place] [address] Chronic midline low back pain without sciatica [...] Description 05/31/2025 11:30 AM EDT Clinical Support [facility] MEDICINE [address] [place] [address] Altagracia Mancilla RN 505 [place] [address] 08/29/2025 12:45 PM EST Office Visit [facility] ADULT DENTAL [address] [place] [address] Zhanna Hernandez documented as of this encounter [...] as of this encounter Care Teams Rn Transitional Relationship Specialty Start Date End Date Aaron Pisano MD [address] [place] [address] PCP - General Internal Medicine 05/10/14 Antonietta Lim Dental Office AssistantMetal Finisher 09/18/24 documented as of this encounter
--- OUTSIDE RECORDS SUMMARY | 2025-05-30 17:59 | XMS_ITS | Encounter Summary ---
Author Organization [employer] Address 75 [facility] 7t [place] [address] Care Team Providers Care Water Proofer Name Role Phone Aaron Pisano MD Primary Care Provide r Reason for Visit * Reason Onset Date Comments Med Refill 04/02/2025 Encounter Details Date Type Department Care Team ([facility] st Contact Info) Description 04/02/2025 Refill [facility] MEDICINE [address] [place] [phone] Aaron Pisano MD [address] [place] [address] Social History Tobacco Use Types Packs/Day Years [...] Description 05/31/2025 11:30 AM EDT Clinical Support [facility] MEDICINE [address] [place] [phone] Altagracia Mancilla RN 505 [place] [address] 08/29/2025 12:45 PM EST Office Visit [facility] ADULT DENTAL 230 [place] [address] Zhanna Hernandez documented as of this encounter [...] documented as of this encounter Care Teams Water Proofer Relationship Specialty Start Date End Date Aaron Pisano MD [address] [place] [address] PCP - General Internal Medicine 05/10/14 Antonietta Lim Manager WastewaterAutomation Machine Builder 09/18/24 documented as of this encounter
--- OUTSIDE RECORDS SUMMARY | 2025-05-30 17:59 | XMS_ITS | Encounter Summary ---
Author Organization [employer] Address 75 [facility] 7 [place] [address] Care Team Providers Care Custom Furrier Name Role Phone Aaron Pisano MD Primary Care Provide r Reason for Visit * Reason Onset Date Comments Med Refill 11/16/2022 Encounter Details Date Type Department Care Team ([facility] st Contact Info) Description 11/16/2022 Telephone [facility] MEDICINE [address] [place] [address] Aaron Pisano MD [address] [place] [phone] Med Refill Social History Tobacco Use Types [...] med refill status Please contact pt at [phone] * Telephone Encounter - Natasha Jain - 11/30/2022 1:14 PM EDT Tc from pt requesting medication status. Please contact pt at [phone] * Telephone Encounter - Jenny Smith - 11/16/2022 4:36 PM EDT Tc from pt requesting med refill for medication oxyCODONE (Roxicodone) 5 MG immediate release tablet. documented in this encounter Plan of Treatment Upcoming Encounters Date Type Department Care Team (Late st Contact Info) Description 05/31/2025 11:30 AM EDT Clinical Support [facility] MEDICINE [address] [place] [address] Altagracia Mancilla, GRACIELA 505 [place] [address] 08/29/2025 12:45 PM EST Office Visit [facility] ADULT DENTAL [address] [place] [address] Zhanna Hernandez documented as of this encounter Visit Diagnoses Not on filedocumented in this encounter Care Teams Custom Furrier Relationship Specialty Start Date End Date Aaron Pisano MD [address] [place] [address] PCP - General Internal Medicine 05/10/14 Antonietta Lim Hatchery AttendantApplication Support Lead 09/18/24 documented as of this encounter
--- OUTSIDE RECORDS SUMMARY | 2025-05-30 17:59 | XMS_ITS | Clinical Summary ---
Author Organization [facility] Address [facility] [place] [place] [address] Care Team Providers Care Pre K Teacher Name Role Phone None Primary Care Provider [...] Influenza standard series) 04/08/2025 Insurance MEDICAID [place]NA[place] Care Teams Pre K Teacher Relationship Specialty Start Date End Date None None PCP - General 02/10/20
--- OUTSIDE RECORDS SUMMARY | 2025-05-30 17:59 | XMS_ITS | Encounter Summary ---
Author Organization [employer] Address 75 [facility] 7t [place] [address] Care Team Providers Care Associate Team Physician Name Role Phone Aaron Pisano MD Primary Care Provide r Reason for Visit * Reason Onset Date Comments Med Refill 04/03/2025 Encounter Details Date Type Department Care Team ([facility] Contact Info) Description 04/03/2025 Telephone [facility] MEDICINE [address] [place] [address] Aaron Pisano MD [address] [place] [address] Med Refill Social History Tobacco Use Types [...] immediate release tablet To be sent to: [facility] - [place], [place] - [address] [place] [address] documented in this encounter Plan of Treatment Upcoming Encounters Date Type Department Care Team ([facility] st Contact Info) Description 05/31/2025 11:30 AM EDT Clinical Support [facility] MEDICINE 230 [place] [address] Altagracia Mancilla RN 505 [place] [address] 08/29/2025 12:45 PM EST Office Visit [facility] ADULT DENTAL 230 [place] [address] Zhanna Hernandez documented as of this encounter [...] documented as of this encounter Care Teams Associate Team Physician Relationship Specialty Start Date End Date Aaron Pisano MD [address] [place] [address] PCP - General Internal Medicine 05/10/14 Antonietta Lim Putter InOrder Takers Supervisor 09/18/24 documented as of this encounter
--- OUTSIDE RECORDS SUMMARY | 2025-05-30 17:59 | XMS_ITS | Encounter Summary ---
Author Organization [employer] Address 75 [facility] 7t [place] [address] Care Team Providers Care Patient Support Associate Name Role Phone Aaron Pisano MD Primary Care Provide r Reason for Visit * Reason Onset Date Comments Med Refill 11/07/2024 Encounter Details Date Type Department Care Team ([facility] st Contact Info) Description 11/07/2024 Refill [facility] MEDICINE [address] [place] [address] Aaron Pisano MD 230 [place] [address] Chronic midline low back pain without sciatica; [...] the past 12 months, has t he [employer], gas, oil or water company threatened to [...] Description 05/31/2025 11:30 AM EDT Clinical Support [facility] MEDICINE [address] [place] [address] Altagracia Mancilla RN [address] [place] [address] 08/29/2025 12:45 PM EST Office Visit [facility] ADULT DENTAL 230 [place] [address] Zhanna Hernandez documented as of this encounter Goals Goal Patient Goal Type Associated Problems Recent Progress Patient-Stated? Author Blood Pressure < 140/90 Blood Pressure 130/83( 025 3:21 PM EDT) No Giovanna Banks, Carleen documented as of this encounter Visit Diagnoses Diagnosis Chronic midline low back pain without sciatica Diarrhea in adult patient documented in this encounter Additional Health Concerns Assessment Noted Time PHQ-9 Depression Total Score: 2 06/05/20 24 8:38 AM EDT documented as of this encounter Care Teams Patient Support Associate Relationship Specialty Start Date End Date Aaron Pisano MD [address] [place] [address] PCP - General Internal Medicine 05/10/14 Antonietta Lim Jewelry EstimatorMilitary Technician 09/18/24 documented as of this encounter
--- OUTSIDE RECORDS SUMMARY | 2025-05-30 18:00 | XMS_ITS | Encounter Summary ---
Author Organization [employer] Address 75 [facility] 7t [place] [address] Care Team Providers Care Glass Or Mirror Inspector Name Role Phone Aaron Pisano MD Primary Care Provide r Reason for Visit * Reason Comments Med Refill Encounter Details Date Type Department Care Team ([facility] st Contact Info) Description 08/09/2023 Refill [facility] MEDICINE [address] [place] [address] Sumi Vang ANP [address] [place] [address] Chronic midline low back pain without sciatica [...] with others, in a hotel, in a prison, living outside on the street, on a [...] Description 05/31/2025 11:30 AM EDT Clinical Support [facility] MEDICINE [address] [place] [address] Altagracia Mancilla RN [address] [place] [address] 08/29/2025 12:45 PM EST Office Visit [facility] ADULT DENTAL [address] [place] [address] Zhanna Hernandez documented as of this encounter Goals Goal Patient Goal Type Associated Problems Recent Progress Patient-Stated? Author Blood Pressure < 140/90 Blood Pressure 130/83( 025 3:21 PM EDT) No Giovanna Banks, Carleen documented as of this encounter Visit Diagnoses Diagnosis Chronic midline low back pain without sciatica documented in this encounter Care Teams Glass Or Mirror Inspector Relationship Specialty Start Date End Date Aaron Pisano MD [address] [place] [address] PCP - General Internal Medicine 05/10/14 Antonietta Lim Finished Cloth ExaminerEsthetician/Skin Therapist 09/18/24 documented as of this encounter
--- OUTSIDE RECORDS SUMMARY | 2025-05-30 18:00 | XMS_ITS | Encounter Summary ---
Author Organization [employer] Address [address] [facility] 7t [place] [address] Care Team Providers Care Milling Machine Operator Name Role Phone Aaron Pisano MD Primary Care Provide r Reason for Visit * Reason Comments Med Refill Encounter Details Date Type Department Care Team ([facility] st Contact Info) Description 07/07/2023 Refill [facility] MEDICINE [address] [place] [address] Aaron Pisano MD [address] [place] [address] Social History Tobacco Use Types Packs/Day Years [...] Description 05/31/2025 11:30 AM EDT Clinical Support [facility] MEDICINE [address] [place] [address] Altagracia Mancilla RN 505 [place] [address] 08/29/2025 12:45 PM EST Office Visit [facility] ADULT DENTAL [address] [place] [address] Zhanna Hernandez documented as of this encounter Goals Goal Patient Goal Type Associated Problems Recent Progress Patient-Stated? Author Blood Pressure < 140/90 Blood Pressure 130/83( 025 3:21 PM EDT) No Giovanna Banks, Carleen documented as of this encounter Visit Diagnoses Not on filedocumented in this encounter Care Teams Milling Machine Operator Relationship Specialty Start Date End Date Aaron Pisano MD [address] [place] [address] PCP - General Internal Medicine 05/10/14 Antonietta Lim Pocket CutterEnvironmental Health Safety Engineer 09/18/24 documented as of this encounter
--- OUTSIDE RECORDS SUMMARY | 2025-05-30 18:00 | XMS_ITS | Encounter Summary ---
Author Organization [employer] Address [address] [place] [address] 7 [place] [address] Care Team Providers Care Abstractor Name Role Phone Aaron Pisano MD Primary Care Provide r Reason for Visit * Reason Onset Date Comments Med Refill 09/14/2022 Encounter Details Date Type Department Care Team (Late Contact Info) Description 09/14/2022 Telephone [facility] MEDICINE [address] [place] [phone] Aaron Pisano MD [address] [place] [address] Med Refill Social History Tobacco Use Types [...] Description 05/31/2025 11:30 AM EDT Clinical Support [facility] MEDICINE [address] [place] [address] Altagracia Mancilla, RN 505 [place] [address] 08/29/2025 12:45 PM EST Office Visit [facility] ADULT DENTAL [address] [place] [address] Zhanna Hernandez documented as of this encounter Visit Diagnoses Not on filedocumented in this encounter Care Teams Abstractor Relationship Specialty Start Date End Date Aaron Pisano MD [address] [place] [address] PCP - General Internal Medicine 05/10/14 Antonietta Lim Field ProducerRn Ccu 09/18/24 documented as of this encounter
--- OUTSIDE RECORDS SUMMARY | 2025-05-30 18:00 | XMS_ITS | Encounter Summary ---
Author Organization [employer] Address 75 [facility] 7 [place] [address] Care Team Providers Care Cognos Report Developer Name Role Phone Aaron Pisano MD Primary Care Provide r Reason for Visit * Reason Onset Date Comments Med Refill 08/24/2022 Encounter Details Date Type Department Care Team ([facility] st Contact Info) Description 08/24/2022 Telephone [facility] MEDICINE [address] [place] [address] Aaron Pisano MD [address] [place] [address] Med Refill Social History Tobacco Use Types [...] Description 05/31/2025 11:30 AM EDT Clinical Support [facility] MEDICINE [address] [place] [address] Altagracia Mancilla RN 505 [place] [address] 08/29/2025 12:45 PM EST Office Visit [facility] ADULT DENTAL [address] [place] [address] Zhanna Hernandez documented as of this encounter Visit Diagnoses Not on filedocumented in this encounter Care Teams Cognos Report Developer Relationship Specialty Start Date End Date Aaron Pisano MD 230 [place] [address] PCP - General Internal Medicine 05/10/14 Antonietta Lim Bandmill OperatorPediatric Dermatologist 09/18/24 documented as of this encounter
--- OUTSIDE RECORDS SUMMARY | 2025-05-30 18:00 | XMS_ITS | Encounter Summary ---
Author Organization [employer] Address 75 [facility] 7 [place] [address] Care Team Providers Care Dermatology Technician Name Role Phone Aaron Pisano MD Primary Care Provide r Reason for Visit * Reason Onset Date Comments Med Refill 08/12/2024 Encounter Details Date Type Department Care Team ([facility] st Contact Info) Description 08/12/2024 Refill [facility] MEDICINE [address] [place] [address] Aaron Pisano MD [address] [place] [address] Social History Tobacco Use Types Packs/Day Years [...] Description 05/31/2025 11:30 AM EDT Clinical Support [facility] MEDICINE [address] [place] [address] Altagracia Mancilla RN 505 [place] [address] 08/29/2025 12:45 PM EST Office Visit [facility] ADULT DENTAL [address] [place] [address] Zhanna Hrenandez documented as of this encounter Goals Goal [...] documented as of this encounter Care Teams Dermatology Technician Relationship Specialty Start Date End Date Aaron Pisano MD [address] [place] [address] PCP - General Internal Medicine 05/10/14 Antonietta Lim Log SnakerSleeper Cutter 09/18/24 documented as of this encounter
--- OUTSIDE RECORDS SUMMARY | 2025-05-30 18:00 | XMS_ITS | Encounter Summary ---
Author Organization [employer] Address 75 [facility] [address] [place] [address] Care Team Providers Care Brick Pointer Name Role Phone Aaron Pisano MD Primary Care Provide r Reason for Visit * Reason Comments Med Refill Encounter Details Date Type Department Care Team ([facility] st Contact Info) Description 07/04/2023 Refill [facility] PEDS [address] [place], [place] [phone] Sumi Vang, ANP [address] [place] [address] Social History Tobacco Use Types Packs/Day Years [...] Description 05/31/2025 11:30 AM EDT Clinical Support [facility] MEDICINE [address] [place] [address] Altagracia Mancilla RN 505 [place] [address] 08/29/2025 12:45 PM EST Office Visit [facility] ADULT DENTAL 230 [place] [address] Zhanna Hernandez documented as of this encounter Goals Goal Patient Goal Type Associated Problems Recent Progress Patient-Stated? Author Blood Pressure < 140/90 Blood Pressure 130/83( 025 3:21 PM EDT) No Giovanna Banks, Carleen documented as of this encounter Visit Diagnoses Not on filedocumented in this encounter Care Teams Brick Pointer Relationship Specialty Start Date End Date Aaron Pisano MD [address] [place] [address] PCP - General Internal Medicine 05/10/14 Antonietta Lim Range ManagerEpic Beacon Specialists 09/18/24 documented as of this encounter
--- OUTSIDE RECORDS SUMMARY | 2025-05-30 18:00 | XMS_ITS | Encounter Summary ---
Author Organization [employer] Address 75 [facility] 7t [place] [address] Care Team Providers Care Reading Teacher Name Role Phone Aaron Pisano MD Primary Care Provide r Reason for Visit * Reason Onset Date Comments Med Refill 08/02/2024 Encounter Details Date Type Department Care Team ([facility] Contact Info) Description 08/02/2024 Telephone [facility] MEDICINE [address] [place] [address] Aaron Pisano MD [address] [place] [address] Med Refill Social History Tobacco Use Types [...] Description 05/31/2025 11:30 AM EDT Clinical Support [facility] MEDICINE [address] [place] [address] Altagracia Mancilla RN 505 [place] [address] 08/29/2025 12:45 PM EST Office Visit [facility] ADULT DENTAL [address] [place] [address] Zhanna Hernandez documented as of this encounter [...] documented as of this encounter Care Teams Reading Teacher Relationship Specialty Start Date End Date Aaron Pisano MD [address] [place] [address] PCP - General Internal Medicine 05/10/14 Antonietta Lim Water Project ManagerMdm Sr 09/18/24 documented as of this encounter
--- OUTSIDE RECORDS SUMMARY | 2025-05-30 18:00 | XMS_ITS | Encounter Summary ---
Author Organization [employer] Address [address] [place] [address] 7 [place] [address] Care Team Providers Care Director Workforce Management Name Role Phone Aaron Pisano MD Primary Care Provide r Reason for Visit * Reason Onset Date Comments Med Refill 04/04/2023 Encounter Details Date Type Department Care Team ([facility] st Contact Info) Description 04/04/2023 Telephone [facility] MEDICINE [address] [place] [address] Aaron Pisano MD 230 [place] [address] Med Refill Social History Tobacco Use Types [...] Description 05/31/2025 11:30 AM EDT Clinical Support [facility] MEDICINE [address] [place] [address] Altagracia Mancilla, GRACIELA [address] [place] [address] 08/29/2025 12:45 PM EST Office Visit [facility] ADULT DENTAL [address] [place] [address] Zhanna Hernandez documented as of this encounter Goals Goal Patient Goal Type Associated Problems Recent Progress Patient-Stated? Author Blood Pressure < 140/90 Blood Pressure 130/83( 025 3:21 PM EDT) No Giovanna Banks, Carleen documented as of this encounter Visit Diagnoses Not on filedocumented in this encounter Care Teams Director Workforce Management Relationship Specialty Start Date End Date Aaron Pisano MD [address] [place] [address] PCP - General Internal Medicine 05/10/14 Antonietta Lim Parking AssistantRailroad Car Loader 09/18/24 documented as of this encounter
--- OUTSIDE RECORDS SUMMARY | 2025-05-30 18:00 | XMS_ITS | Encounter Summary ---
Author Organization [employer] Address [address] [facility] 7t [place] [address] Care Team Providers Care Hospital Admitting Clerk Name Role Phone Aaron Pisano MD Primary Care Provide r Reason for Visit * Reason Comments Med Refill Encounter Details Date Type Department Care Team ([facility] st Contact Info) Description 05/07/2024 Refill [facility] MED[facility]INE [address] [place] [address] Aaron Pisano MD [address] [place], [place] [phone] Chronic midline low back pain without sciatica [...] Description 05/31/2025 11:30 AM EDT Clinical Support [facility] MED[facility]INE [address] [place] [phone] Altagracia Mancilla RN [address] [place] [address] 08/29/2025 12:45 PM EST Office Visit [facility] ADULT DENTAL [address] [place] [address] Zhanna Hernandez documented as of this encounter [...] documented as of this encounter Care Teams Hospital Admitting Clerk Relationship Specialty Start Date End Date Aaron Pisano MD [address] [place] [address] PCP - General Internal Medicine 05/10/14 Antonietta Lim Senior Major Gifts OfficerSuperintendent Fish Hatchery 09/18/24 documented as of this encounter
--- OUTSIDE RECORDS SUMMARY | 2025-05-30 18:00 | XMS_ITS | Encounter Summary ---
Author Organization [email or web address] Address [address] [facility] 7t [place] [address] Care Team Providers Care Floatlight Powder Mixer Name Role Phone Aaron Pisano MD Primary Care Provide r Reason for Visit * Reason Onset Date Comments Med Refill 06/01/2023 Encounter Details Date Type Department Care Team (Late st Contact Info) Description 06/01/2023 Refill [facility] [address] [place], [place] [phone] Sumi Vang, ANP [address] [place] [address] Chronic midline low back pain without sciatica [...] with others, in a hotel, in a mcc, living outside on the street, on a [...] 11:30 AM EDT Clinical Support [facility] MEDICINE [address] [place] [phone] Altagracia Mancilla, GRACIELA [address] [place] [address] 08/29/2025 12:45 PM EST Office Visit [facility] ADULT DENTAL [address] [place] [address] Zhanna Hernandez documented as of this encounter Goals Goal Patient Goal Type Associated Problems Recent Progress Patient-Stated? Author Blood Pressure < 140/90 Blood Pressure 130/83( 025 3:21 PM EDT) No Giovanna Banks PharmD documented as of this encounter Visit Diagnoses Diagnosis Chronic midline low back pain without sciatica documented in this encounter Care Teams Floatlight Powder Mixer Relationship Specialty Start Date End Date Aaron Pisano MD [address] [place] [phone] PCP - General Internal Medicine 05/10/14 Antonietta Lim Intercell Connector PlacerSight Mounter 09/18/24 documented as of this encounter
--- OUTSIDE RECORDS SUMMARY | 2025-05-30 18:00 | XMS_ITS | Encounter Summary ---
Author Organization [employer] Address [address] [facility] 7t [place] [address] Care Team Providers Care Stereoptician Name Role Phone Aaron Pisano MD Primary Care Provide r Reason for Visit * Reason Comments Med Refill Encounter Details Date Type Department Care Team ([facility] st Contact Info) Description 10/06/2023 Refill [facility] [address] [place] [address] Aaron Pisano MD [address] [place], [place] [phone] Chronic midline low back pain without sciatica [...] Description 05/31/2025 11:30 AM EDT Clinical Support [facility] MEDICINE [address] [place] [phone] Altagracia Mancilla RN 505 [place] [address] 08/29/2025 12:45 PM EST Office Visit [facility] ADULT DENTAL [address] [place] [address] Zhanna Hernandez documented as of this encounter [...] documented as of this encounter Care Teams Stereoptician Relationship Specialty Start Date End Date Aaron Pisano MD [address] [place] [address] PCP - General Internal Medicine 05/10/14 Antonietta Lim Brooch And Bracelet MakerInsurance Sales Producer 09/18/24 documented as of this encounter
--- OUTSIDE RECORDS SUMMARY | 2025-05-30 18:00 | XMS_ITS | Encounter Summary ---
Author Organization [employer] Address [address] [facility] 7t [place] [address] Care Team Providers Care Plastic Sheets Finishing Supervisor Name Role Phone Aaron Pisano MD Primary Care Provide r Reason for Visit * Reason Onset Date Comments Med Refill 08/12/2024 Encounter Details Date Type Department Care Team ([facility] st Contact Info) Description 08/12/2024 Refill [facility] MEDICINE [address] [place] [phone] Aaron Pisano MD [address] [place] [address] Smoker Social History Tobacco Use Types Packs/Day [...] Description 05/31/2025 11:30 AM EDT Clinical Support [facility] MEDICINE [address] [place] [address] Altagracia Mancilla RN [address] [place] [address] 08/29/2025 12:45 PM EST Office Visit [facility] ADULT DENTAL [address] [place] [address] Zhanna Hernandez documented as of this encounter [...] as of this encounter Care Teams Plastic Sheets Finishing Supervisor Relationship Specialty Start Date End Date Aaron Pisano MD [address] [place] [address] PCP - General Internal Medicine 05/10/14 Antonietta Lim Spindle PlumberPly Cutter 09/18/24 documented as of this encounter
--- OUTSIDE RECORDS SUMMARY | 2025-05-30 18:00 | XMS_ITS | Encounter Summary ---
Author Organization [employer] Address [address] [place] [address] 7 [place] [address] Care Team Providers Care Solar Panel Installation Supervisor Name Role Phone Aaron Pisano MD Primary Care Provide r Reason for Visit * Reason Comments Med Refill Encounter Details Date Type Department Care Team (Late Contact Info) Description 04/18/2023 Refill [facility] MEDICINE [address] [place] [phone] Aaron Pisano MD [address] [place] [phone] Chronic bilateral low back pain without sciatica [...] Description 05/31/2025 11:30 AM EDT Clinical Support [facility] MEDICINE [address] [place] [phone] Altagracia Mancilla RN [address] [place] [address] 08/29/2025 12:45 PM EST Office Visit [facility] ADULT DENTAL [address] [place] [address] Zhanna Hernandez documented as of this encounter Goals Goal Patient Goal Type Associated Problems Recent Progress Patient-Stated? Author Blood Pressure < 140/90 Blood Pressure 130/83( 025 3:21 PM EDT) No Giovanna Banks PharmD documented as of this encounter Visit Diagnoses Diagnosis Chronic bilateral low back pain without sciatica documented in this encounter Care Teams Solar Panel Installation Supervisor Relationship Specialty Start Date End Date Aaron Pisano MD [address] [place] [address] PCP - General Internal Medicine 05/10/14 Antonietta Lim Care CoordinatorRestaurant Managing Partner 09/18/24 documented as of this encounter
--- OUTSIDE RECORDS SUMMARY | 2025-05-30 18:00 | XMS_ITS | Clinical Summary ---
Author Organization [employer] Address [address] [facility] 7[address] [place] [address] Care Team Providers Care Master Naval Parachutist Name Role Phone Aaron Pisano MD Primary [...] MORNING 28 tablet 5 03/11/20 25 Active chlorhexidine (Peridex) 0.12 % solution [...] 7 DAYS 20 tablet 05/02/20 25 Active D3 Super Strength 50 MCG (2000 UT) capsuleIndica tions:Seasona l allergies TAKE 1 CAPSULE BY MOUTH EVERY MORNING 90 capsule 1 05/09/20 25 Active acetaminophen (Tylenol 8 Hour) 650 MG ER tablet Take 1 tablet (650 mg) by mouth every 8 (eight) hours if needed for mild pain. Do not crush, chew, or split. 30 tablet 05/24/20 25 Active cholecalcifer ol (D3 Super Strength) 50 MCG (2000 UT) capsuleIndica tions:Seasona l allergies TAKE 1 CAPSULE BY MOUTH EVERY MORNING 90 capsule 1 10/24/19 25 025 Discontinued acetaminophen (Tylenol 8 Hour) 650 MG ER tablet Take 1 tablet (650 mg) by mouth every 8 (eight) hours if needed for mild pain. Do not crush, chew, or split. 30 tablet 03/13/20 25 025 Discontinued(R eorder (will not trigger [...] pain. 56 tablet 04/05/20 25 025 Discontinued Active Problems Problem Noted [...] Prednisone. She is under the care of Contracting Engineer Dr. Reagan Alfaro last note He recommended to: Monitor given that There is no serological evidence of systemic vasculitis. If she has a recurrence within the next year I think it would warrant immunosuppressive treatment at that time. 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 She is under the care of Contracting Engineer Dr Newberry. She is on Prednisone 2 [...] psychotherapist and a psychiatrist Dr. Gregory. At [facility] Pt is on: Hydroxyzine, Ambien, Assessment & Plan (08/23/2023 2:06 PM EST): Pt under the care of a psychotherapist and a psychiatrist. At [facility] Pt is no longer on Abilify nor Clonidine. She is now on Geodon Assessment & Plan (08/03/2022 9:22 AM EST): Pt under the care of a psychotherapist and a psychiatrist. At [facility] started on Abilify 7.5 mg po [...] most recently seen by Dr Rodas at [facility] 06/15/2024 who recommended PRN follow up Assessment [...] (08/23/2023 1:51 PM EST): Previously referred to [facility] Comprehensive weight management program. Seen twice, they prompter to discuss with her mental health provider her eating habits before they would consider accepting her into the program Assessment & Plan (12/30/2022 3:28 PM EDT): Previously referred to [facility] Comprehensive weight management program Assessment & Plan (08/03/2022 1:48 PM EST): Referred to [facility] Comprehensive weight management program Genital herpes simplex [...] EST): Seen in the past by an Passenger Booking Clerk (Dr. Dozier) Under the care of Clare Carlin The last US on record done at [facility] 01/2019 showed a hypoechoic well circumscribed [...] Encounters Date Type Department Care Team Description 05/24/2025 Refill [facility] ADULT DENTAL [address] [place] [phone] Miki Sarkar DDS 05/24/2025 Travel 05/24/2025 Patient Outreach [facility] MEDICINE [address] [place] [phone] Aaron Pisano MD Care Coordination (CHW outreach for SDOH PT-1 and food needs-referral completed /) 05/24/2025 Telephone [facility] MED[facility]INE [address] [place] [phone] Aaron Pisano MD Pt-1 05/15/2025 Patient Outreach [facility] MED[facility] [address] [place] [address] [phone] Aaron Pisano MD Care Coordination (CHW outreach for SDOH PT-1 and food needs-referral completed /) 05/15/2025 Telephone [facility] MED[facility]INE [address] [place] [phone] Aaron Pisano MD PT-1 05/09/2025 Refill [facility] MED[facility] [address] [place] [phone] Aaron Pisano MD Seasonal allergies 05/08/2025 3:00 PM EDT Office Visit [facility] [address] [place] [address] Rodo Bocanegra MD Fatigue, unspecified type (Primary Dx); Fever and chills 05/08/2025 11:00 AM EDT Office Visit [facility] ADULT DENT[facility] [address] [place] [address] Miki Sarkar DDS Excessive attrition of teeth (Primary Dx) 05/08/2025 Orders Only GENERIC EXTERNAL DATA DEPARTMENT Provider, Generic External Data 05/08/2025 Travel 05/03/2025 Orders Only [facility] External Provider, [facility] 05/02/2025 Refill [facility] [address] [place] [address] Aaron Pisano MD Chronic midline low back pain without sciatica 05/02/2025 Refill [facility] [address] [place] [address] Aaron Pisano MD Chronic midline low back pain without sciatica 05/01/2025 Refill [facility] [address] [place] [address] Aaron Pisano MD 05/01/2025 Refill [facility] [address] [place] [address] Aaron Pisano MD Diarrhea in adult patient 05/01/2025 Travel 04/21/2025 Refill [facility] [address] [place] [address] Aaron Pisano MD Chronic bilateral low back pain without sciatica; Intractable vomiting with nausea 04/11/2025 Refill [facility] [address] [place] [address] Aaron Pisano MD 04/10/2025 Travel 04/10/2025 Telephone [facility] [address] [place] [address] Altagracia Mancilla RN 04/09/2025 11:15 AM EDT Office Visit [facility] [address] [place] [address] Aaron Pisano MD Primary hypertension (Primary Dx); COVID-19; Mild intermittent asthma without complication; Vasculitis (CMS/HCC); Leukocytoclastic vasculitis (CMS/HCC); Routine health maintenance; Acute cough 04/09/2025 Telephone [facility] [address] [facility] [place] [address] Aaron Pisano MD Appointment Request 04/09/2025 Travel 04/05/2025 Travel 04/05/2025 Telephone [facility] [address] [facility] [place] [address] Aaron Pisano MD Lab Order Request and Med Refill 04/05/2025 Telephone [facility] [address] [facility] [place] [address] Aaron Pisano MD 04/05/2025 Refill [facility] [address] [facility] [place] [address] Aaron Pisano MD Chronic midline low back pain without sciatica 04/05/2025 Refill [facility] [address] [place] [address] Altagracia Mancilla RN Chronic midline low back pain without sciatica 04/04/2025 Refill [facility] [address] [facility] [place] [address] Aaron Pisano MD Chronic midline low back pain without sciatica 04/03/2025 Travel 04/03/2025 Telephone [facility] [address] [facility] [place] [address] Aaron Pisano MD Med Refill 04/02/2025 Refill [facility] [address] [facility] [place] [address] Aaron Pisano MD 04/02/2025 Refill [facility] [address] [facility] [place] [address] Aaron Pisano MD Diarrhea in adult patient 04/02/2025 Refill [facility] [address] [place] [address] Aaron Pisano MD Chronic midline low back pain without sciatica; Diarrhea in adult patient 04/02/2025 Travel 03/29/2025 Refill [facility] [address] [facility] [place] [address] Aaron Pisano MD Smoker 03/13/2025 3:00 PM EDT Office Visit [facility] AD[facility] [address] [place] [place] [address] Miki Sarkar DDS Open fracture of tooth, initial encounter (Primary Dx); Abrasion of teeth, localized; Bruxism, sleep-related 03/12/2025 Travel 03/08/2025 Refill [facility] [address] [facility] [place] [address] Aaron Pisano MD 03/05/2025 Refill [facility] [address] [place] [address] Aaron Pisano MD Chronic midline low back pain without sciatica 03/05/2025 Refill [facility] [address] [place] [address] Aaron Pisano MD Chronic midline low back pain without sciatica 03/05/2025 Refill [facility] [address] [place] [address] Aaron Pisano MD Chronic midline low back [...] Sign Reading Time Taken Comments Blood Pressure 130/83 05/08/2025 3:21 PM EDT Pulse 92 05/08/2025 3:21 PM EDT Temperature 36.7 C (98.1 F) 05/08/2025 3:21 PM EDT Respiratory Rate 18 05/08/2025 3:21 PM EDT Oxygen Saturation 98% 05/08/2025 3:21 PM EDT Inhaled Oxygen Concentration - - Weight 97.5 kg (215 lb) 05/08/2025 3:21 PM EDT Height 149.9 cm (4' 11 ) 04/09/2025 11:14 AM EDT Body Mass Index 43.42 04/09/2025 11:14 AM EDT Plan of Treatment Upcoming Encounters Date Type Department Care Team (Late st Contact Info) Description 05/31/2025 11:30 AM EDT Clinical Support [facility] [address] [place] [address] Altagracia Mancilla, RN [address] [place] [address] 08/29/2025 12:45 PM EST Office Visit [facility] [address] [place] [address] Zhanna Hernandez Health Maintenance Due Date Last [...] Disability Screening 01/07/2026 01/07/2025 Mammogram 02/20/2026 02/20/2025, 0701/2025, 01/26/2024, Additional history exists Tobacco Screening 05/08/2026 [...] 3:21 PM EDT) No Giovanna Banks PharmD Procedures Procedure Name Priority Date/Time Associated Diagnosis Comments VITAMIN D,25-OH,TOTAL,IA Routine 05/30/2025 1:22 PM EDT Fatigue, unspecified type TSH W/REFLEX TO FT4 Routine 05/30/2025 1 :22 PM EDT Fatigue, unspecified type CRYOGLOBULIN (% CRYOCRIT), SERUM Routine 05/08/2025 12:41 PM EDT ANCA VASCULITIDES Routine 05/08/2025 12: 41 PM EDT TSH W/REFLEX TO FT4 Routine 05/08/2025 1 2:41 PM EDT VITAMIN D,25-OH,TOTAL,IA Routine 05/08/2025 12:41 PM EDT SED RATE BY MODIFIED WESTERGREN Routine 05/08/2025 12:41 PM EDT C-REACTIVE PROTEIN Routine 05/08/2025 12 :41 PM EDT COMPREHENSIVE METABOLIC PANEL Routine 05/08/2025 12:41 PM EDT C-REACTIVE PROTEIN Routine 05/08/2025 12 :41 PM EDT COMPREHENSIVE METABOLIC PANEL Routine 05/08/2025 12:41 PM EDT CBC WITH AUTO DIFFERENTIAL Routine 05/08/2025 12:41 PM EDT CBC WITH AUTO DIFFERENTIAL Routine 05/08/2025 12:41 PM EDT CBC WITH AUTO DIFFERENTIAL Routine 05/08/2025 12:41 PM EDT Vasculitis (CMS/HCC) COMPREHENSIVE METABOLIC PANEL Routine 05/08/2025 12:41 PM EDT Vasculitis (CMS/HCC) 8 ML RESIN-BASED COMPOSITE - 2 SURF, [...] TOMOSYNTHESIS BILATERAL Routine 02/20/2025 2:30 PM EDT PROPHYLAXIS - ADULT Routine 02/11/2025 9 :00 AM EDT PERIODIC ORAL EVALUATION - ESTABLISHED PATIENT Routine 02/11/2025 9:00 AM EDT HEPATITIS PANEL, GENERAL Routine 12/28/2024 [...] Recently Relevant to Health Maintenance Results * Vitamin D, 25-Hydroxy, Total, Immunoassay (05/30/2025 1:22 PM EDT) Only the most recent of2 resultswithin the time period is included. Vitamin D 25-OH Total 49.9 >30 ng/mL [facility] Comment: Health Based Reference Values*< 20 ng/mL [id number] ng/mL Insufficient> 30 ng/mL Sufficient*Cielo TINEO. N Engl J Med. 2007;357:266-280There is no well-established upper level of normal vitamin Dlevels. Some laboratories use 50 ng/mL as an upper limit ofnormal. However, toxicity is patient-dependent and may occurat any level. Careful correlation with the patient'spresentation is necessary and, if there is concern forvitamin D toxicity, treatment should be consideredirrespective of the serum level.Care must be taken in interpreting Vitamin D results fromdifferent laboratories and methodologies. Published datademonstrated that results from patients undergoinghemodialysis may show a negative bias when tested withvarious automated 25-OH vitamin D assays when compared toLC-MS/MS.When testing samples from patients whose predominant form ofVitamin D is Vitamin D2, such as patients receiving VitaminD2 supplementation, results that are subtherapeutic shouldbe confirmed with another method such as LC-MS/MS. Blood 05/30/2025 1:22 PM EDT 05/30/2025 1:22 PM EDT us Rodo Bocanegra MD LAB BLOOD ORDERABLES Final Resul t Performing Organization Address [facility] de Phone Number [facility] [address] [place] [phone] * TSH with Reflex to Free T4 (05/30/2025 1:22 PM EDT) Only the most recent of2 resultswithin the time period is included. TSH reflex Free T4 1.37 0.32 - 4.0 uIU/mL [facility] Blood Venous blood specimen / Unknown 05/30/2025 1:22 PM EDT 05/30/2025 1:22 PM EDT us Rodo Bocanegra MD LAB BLOOD ORDERABLES Final Resul t Performing Organization Address [facility] Co de Phone Number [facility] [address] [place] [phone] * ANCA Vasculitides (05/08/2025 12:41 PM EDT) Myeloperoxidase Antibody <1.0 [facility] Comment:Value Interpretation ----- <1.0 No Antibody Detected > or = 1.0 Antibody DetectedAutoantibodies to myeloperoxidase (MPO) are commonlyassociated with the following small-vesselvasculitides: microscopic polyangiitis,polyarteritis nodosa, Churg-Chen syndrome,necrotizing and crescentic glomerulonephritis andoccasionally granulomatosis with polyangiitis(GPA, Marissa's). The perinuclear IFA pattern,(p-ANCA) is based largely on autoantibody tomyeloperoxidase which serves as the primary antigen.These autoantibodies are present in active disease. Proteinase-3 Antibody <1.0 [facility] Comment:Value Interpretation ----- <1.0 No Antibody Detected > or = 1.0 Antibody DetectedAutoantibodies to proteinase-3 (VA-3) are accepted ascharacteristic for granulomatosis with polyangiitis(GPA, Marissa's), and are detectable in 95% of thehistologically proven cases. The cytoplasmic IFApattern, (c-ANCA), is based largely on autoantibody toPR-3 which serves as the primary antigen.These autoantibodies are present in active disease.THIS TEST WAS PERFORMED AT:[employer] [place] [phone] REDMOND MD 05/08/2025 12:4 1 PM EDT 05/08/2025 4:00 PM EDT us Generic External Data Provider LAB BLOOD ORDERAB LES Final Result [facility] [address] [place] [phone] * (ABNORMAL) CBC auto differential (05/08/2025 12:41 PM EDT) Only the most recent of3 resultswithin the time period is included. Pathologist [facility] White Blood Count 11.7(H) 4.8 - 10.8 X10*3/uL [facility] Red Blood Count 4.88 4.20 - 5.50 X10*6/uL [facility] Hemoglobin 13.4 12.0 - 16.0 g/dl [facility] Hematocrit 40.0 37.0 - 47.0 % [facility] Mean Corpuscular Volume 82.0 80.0 - 98.0 fL [facility] Mean Corpuscular Hemoglobin 27.5 27.0 - 33.0 pg [facility] Mean Corpuscular HGB Conc 33.5 31.0 - 35.0 g/dl [facility] Red Cell Distribution Width 15.2 11.0 - 16.0 % [facility] Platelet Count 338 160 - 400 X10*3/uL [facility] Mean Platelet Volume 10.1 9.4 - 12.3 fL [facility] Neutrophils Percent Auto 67.7 45 - 73 % [facility] Imm Gran Pct Auto 0.5(H) 0.0 - 0.4 % [facility] Lymphocytes Percent Auto 20.4 20 - 40 % [facility] Monocytes Percent Auto 6.9 2 - 11 % [facility] Eosinophils Percent Auto 3.2 0 - 4 % [facility] Basophils Percent Auto 1.3 0 - 2 % [facility] NRBC Pct Auto 0.0 0.0 - 0.2 /100WBC [facility] Neutrophils Absolute Auto 7.9 2.0 - 8.3 x10*3/uL [facility] Imm Gran Abs Auto 0.06(H) 0.00 - 0.03 X10*3/uL [facility] Lymphocytes Absolute Auto 2.4 1.2 - 4.9 X10*3/uL [facility] Monocytes Absolute Auto 0.8 0.1 - 1.2 X10*3/uL [facility] Eosinophils Absolute Auto 0.4 0.0 - 0.4 X10*3/uL [facility] Basophils Absolute Auto 0.2 0.0 - 0.2 X10*3/uL [facility] NRBC Abs Auto 0.000 0.0 - 0.012 X10*3/uL [facility] 05/08/2025 12:4 1 PM EDT 05/08/2025 4:00 PM EDT Generic External Data Provider LAB BLOOD ORDERAB LES Final Result Performing Organization Address [facility] Co de Phone Number [facility] [address] [place] [phone] * Cryoglobulin (% Cryocrit), Serum (05/08/2025 12:41 PM EDT) Cryoglobulin, Ql, Serum, Rflx Negative Negative [facility] Comment:The Cryocrit is prim arily intended for following apatient with previously defined and quantitatedcryoglobulins. The cryocrit may consist ofcryoglobulins, fibrins, complement, or mixtures ofthese.THIS TEST WAS PERFORMED AT:[id number] [place] [phone] CARRANZA MD,PHD % Cryocrit TNP [facility] 05/08/2025 12:4 1 PM EDT 05/08/2025 4:00 PM EDT Generic External Data Provider LAB BLOOD ORDERAB LES Final Result Performing Organization Address [facility] Co de Phone Number [facility] [address] [place] [phone] * (ABNORMAL) Sed Rate by Modified Hilda (05/08/2025 12:41 PM EDT) Erythrocyte Sedimentation Rate 38(H) 0 - 20 MM/HR [facility] Comment:Patients with polycy themia and many hemoglobin abnormalitiesmay have depressed sed rates whereas patients with anemiamay have elevated sed rates. 05/08/2025 12:4 1 PM EDT 05/08/2025 4:00 PM EDT us Generic External Data Provider LAB BLOOD ORDERAB LES Final Result Performing Organization Address [facility] Co de Phone Number [facility] [address] [place] [address] [phone] * (ABNORMAL) C-reactive Protein (05/08/2025 12:41 PM EDT) Only the most recent of2 resultswithin the time period is included. C Reactive Protein 2.00(H) < or = 0.50 mg/dL [facility] 05/08/2025 12:4 1 PM EDT 05/08/2025 4:00 PM EDT Generic External Data Provider LAB BLOOD ORDERAB LES Final Result Performing Organization Address [place]/[facility] de Phone Number [facility] [address] [place] [address] [phone] * Comprehensive Metabolic Panel (05/08/2025 12:41 PM EDT) Only the most recent of3 resultswithin the time period is included. Sodium 142 135 - 145 mmol/L [facility] Potassium 3.3 3.3 - 5.1 mmol/L [facility] Chloride 103 96 - 108 mmol/L [facility] Carbon Dioxide 29 22 - 29 mmol/L [facility] Anion Gap 13 12 - 20 [facility] Urea Nitrogen (BUN) 16 9 - 16 mg/dL [facility] Creatinine, Serum 0.98 0.5 - 1.4 mg/dL [facility] Estimated Glomerular Filt Rate >60 [facility] Comment:Chronic Kidney Disea se: Estimated GFR < 60 mL/min/1.02t0Ghibji Kidney Disease: Estimated GFR < 15 mL/min/1.73m2 Glucose 98 60 - 115 mg/dL [facility] Calcium 9.7 8.4 - 10.2 mg/dL [facility] Bilirubin, Total 0.4 0.0 - 1.0 mg/dL [facility] Aspartate Amino Transferase 22 5 - 31 U/L [facility] Alanine Aminotransferase 18 0 - 31 U/L [facility] Total Protein 7.8 6.5 - 8.0 g/dL [facility] Albumin Level 4.5 3.5 - 5.0 g/dL [facility] Alkaline Phosphatase 101 39 - 117 U/L [facility] 05/08/2025 12:4 1 PM EDT 05/08/2025 4:00 PM EDT us Generic External Data Provider LAB BLOOD ORDERAB LES Final Result Performing Organization Address City/State/[facility] Co de Phone Number [facility] [address] [place] [address] [phone] * CT Sinus w/o Contrast (05/03/2025 4:22 PM EDT) Anatomical Region Laterality Modality Computed Tomogra phy 05/03/2025 4:22 PM EDT Narrative 05/03/2025 5:14 PM EDT [place] [address] CT Scan Report Signed Patient: Zee Villanueva MR#: [id number] : 1975 Acct:[id number] Age/Sex: 49 / F ADM Date: 05/03/25 Loc: HO.CT Attending Dr: Kerry James MD Ordering Physician: Kerry James MD Date of Service: 05/03/25 Procedure(s): CT sinus wo IV con Accession Number(s): [id number] cc: Kerry James MD; aAron Carcamo MD Report Number: [id number]: Total DLP = 92.00 mGy-cm Reason for [...] 05/03/25 1711 DD/ 1622 TD/TT: 05/03/25 1640 Living Specialist: Procedure Note Donotuseinterpreter, Image - 05/03/[address] [place] [address] [address] Scan Report Signed Patient: Zee Villanueva AMR#: [id number] : 1975Acct:[id number] Age/Sex: 49 / FADM Date: 05/03/25 Loc: HO.CT Attending Dr: Kerry James MD Ordering Physician: Kerry James MD Date of Service: 05/03/25 Procedure(s): CT sinus wo IV con Accession Number(s): [id number] cc: Kerry James MD; Aaron Carcamo MD Report Number: [id number]: Total DLP = 92.00 mGy-cm Reason for [...] 05/03/25 1711 DD/ 1622 TD/TT: 05/03/25 1640 Living Specialist: [facility] External Provider IMG CT PROCEDURES Final Result * POCT Influenza A manually resulted (04/09/2025 1:41 PM EDT) [facility] Rapid Influenza A Ag Negative Negative, Indeterminate QC Media Lot # [id number] Lot# Expiration Date Swab Nasopharyngeal structure / Unknown 04/09/2025 1:41 PM EDT Result [facility] Aaron Harris MD POINT OF CARE TEST EN TER/EDIT ORDERABLES Final Result * POCT Influenza B manually resulted (04/09/2025 1:40 PM EDT) [facility] Rapid Influenza B Ag Negative Negative, Indeterminate QC Media Lot # [id number] Lot# Expiration Date Swab 04/09/2025 1:40 PM EDT Result [facility] Aaron Harris MD POINT OF CARE TEST EN TER/EDIT ORDERABLES Final Result * POCT Rapid COVID Ag (04/09/2025 1:39 PM EDT) [facility] Rapid COVID Ag Positive QC Media Lot # [id number] Lot# Expiration Date Swab 04/09/2025 1:39 PM EDT Result [facility] Aaron Harris MD POINT OF CARE TEST EN TER/EDIT ORDERABLES Final Result * POCT rapid strep A manually resulted (04/09/2025 1:27 PM EDT) Rapid Strep A Screen Negative Negative, None Detected QC Media Lot # [id number] Lot# Expiration Date [id number] Swab 04/09/2025 1:27 PM EDT Aaron Harris MD POINT OF CARE TEST EN TER/EDIT ORDERABLES Final Result * BI Mammogram Screening Tomosynthesis Bilateral (02/20/2025 2:30 PM EDT) Anatomical Region Laterality Modality Breast Bilateral Mammography 02/20/2025 2:30 PM EDT Narrative 03/01/2025 8:13 PM EDT [facility]'[address] [place] [address] Mammography Report Signed Patient: Zee Villanueva MR#: [id number] : 1975 Acct:[id number] Age/Sex: 49 / F ADM Date: 02/20/25 Loc: HO.MAMMO Attending Dr: Aaron Carcmao MD Ordering Physician: Aaron Carcamo MD Resu lts: 1Negative Date of Service: 02/20/25 Follow Up: 1 Year From [facility] ina Mammogram Procedure(s): MM tomosynthesis screening BI Accession Number(s): [id number] cc: Aaron Carcamo MD EXAMINATION: MM SCREENING [...] OV> 03/01/252009 DD/ 1430 TD/TT: 02/20/25 1510 Living Specialist: Procedure Note Donotuseinterpreter, Image - 03/01/2025 [facility] [address] [place], [place] [address] Mammography Report Signed Patient: Zee Villanueva AMR#: [id number] : 1975Acct:[id number] Age/Sex: 49 / FADM Date: 02/20/25 Loc: HO.MAMMO Attending Dr: Aaron Carcamo MD Ordering Physician: Aaron Carcamo MDResu lts: 1Negative Date of Service: 02/20/25Follow Up: 1 Year From Orig inal Mammogram Procedure(s): MM tomosynthesis screening BI Accession Number(s): [id number] cc: Aaron Carcamo MD EXAMINATION: MM SCREENING [...] OV> 03/01/252009 DD/ 1430 TD/TT: 02/20/25 1510 Living Specialist: us Aaron Harris MD IMG BI PROCEDURES Satya lauren Result - Final * Hepatitis Panel, General (12/28/2024 2:24 PM EDT) Hepatitis A IgM Nonreactive Nonreactive [facility] Comment:IgM antibodies to LUTHER V not detected; does not exclude earlyacute or recovered HAV infection. ~Hepatitis B Surface Antibody NONREACTIVE Nonreactive [facility] Comment:Nonreactive: < 8.00 mIU/mL Hepatitis B Core Antibody Nonreactive Nonreactive [facility] Hepatitis C Antibody Nonreactive Nonreactive [facility] Comment:Antibodies to HCV no t detected; does not exclude early acuteHCV infection. Hepatitis B Surface Ag Negative Negative [facility] 12/28/2024 2:24 PM EDT 12/28/2024 2:26 PM EDT us Generic External Data Provider LAB BLOOD ORDERAB LES Final Result [facility] [address] [place] [phone] * (ABNORMAL) Lipid Panel, Standard (12/28/2024 2:24 PM EDT) Triglycerides 138 <150 mg/dL [facility] Comment:Desirable Triglyceri de: less than 150 mg/dLBorderline High Triglyceride 150-199 mg/dLHigh Triglyceride: 200-499 mg/dLVery High Triglyceride: greater than or equal to 5OO mg/dL Cholesterol 199 <200 mg/dL [facility] Comment:Desirable Cholestero l: less than 200 mg/dLBorderline High Cholesterol: 200-239 mg/dLHigh Cholesterol: greater than 239 mg/dL LDL Cholesterol Calculated 121(H) <100 mg/dL [facility] Comment:Desirable LDL: less than 100 mg/dLNear Optimal/Above Optimal LDL: 110- 129 mg/dLBorderline High LDL: 130-159 mg/dLHigh LDL: 160-189 mg/dLVery High LDL: greater than or equal to 190 mg/dL HDL Cholesterol 51 >40 mg/dL [facility] Comment:Desirable HDL: great er than 40 mg/dL Note: This HDL assay may give artificially low results in patients with liver disease. Blood Venous blood specimen / Unknown 12/28/2024 2:24 PM EDT 12/28/2024 2:26 PM EDT us Aaron Harris MD LAB BLOOD ORDERABLES Final Result [facility] [address] [place] [phone] * HIV AB/AG (02/26/2020 1:03 PM [...] of detection of this assay. The [employer] Contract Analyst HIV Ag/Ab Combo assay result and supplemental assay results should be interpreted in conjunction with the patient's clinical presentation, history and other laboratory results. If the results are inconsistent with clinical evidence, additional testing is suggested to confirm the result. 02/26/2020 1:03 PM EDT us Aaron Harris MD HISTORICAL/NON ORDERA BLE LABS Final Result [facility] [address] from Last 3 Months or Most Recently Relevant to Health Maintenance Insurance [place] [address] C3 DENTAL-[facility] MEDICAID STAND ADULT * Guarantor: Zee Villanueva Account Type Relation to Patient Date of Phone Billing Address Third Libertarian Liability Self 1975 [facility] [address] [place] [address] [place] [address] [address] [place] [address] [address] [place] [address] Care Teams Master Naval Parachutist Relationship Specialty Start Date End Date Aaron Pisano MD [address] [place] [address] PCP - General Internal Medicine 05/10/14 Antonietta Lim Threading Machine TenderGeneral Utility Maintenance Repairer 09/18/24
--- OUTSIDE RECORDS SUMMARY | 2025-05-30 18:00 | XMS_ITS | Encounter Summary ---
Author Organization [employer] Address [address] [place] [address] 7 [place] [address] Care Team Providers Care Hotel Service Manager Name Role Phone Aaron Pisano MD Primary Care Provide r Encounter Details Date Type Department Care Team (Latest Contact Info) Description 11/10/2020 Abstract [facility] CONVERSIONS Dental, Provider, DDS Social [...] Description 05/31/2025 11:30 AM EDT Clinical Support [facility] MEDICINE [address] [place] [address] Altagracia Mancilla RN [address] [place] [address] 08/29/2025 12:45 PM EST Office Visit [facility] ADULT DENTAL [address] [place] [address] Zhanna Hernandez documented as of this encounter Visit Diagnoses Not on filedocumented in this encounter Care Teams Hotel Service Manager Relationship Specialty Start Date End Date Aaron Pisano MD 230 [place] [address] PCP - General Internal Medicine 05/10/14 Antonietta Lim Authorization ManagerNursing Home Assistant 09/18/24 documented as of this encounter
--- OUTSIDE RECORDS SUMMARY | 2025-05-30 18:01 | XMS_ITS | Encounter Summary ---
Author Organization [employer] Address 75 [facility] 7 [place] [address] Care Team Providers Care Incoming Inspector Name Role Phone Aaron Pisano MD Primary Care Provide r Reason for Visit * Reason Onset Date Comments Med Refill 02/05/2025 Encounter Details Date Type Department Care Team ([facility] st Contact Info) Description 02/05/2025 Refill [facility] CH[facility] MED & PEDS [address] [place] [address] Fam Hartman MD 505 [place] [address] Chronic midline low back pain without sciatica [...] 11:30 AM EDT Clinical Support [facility] MEDICINE [address] [place] [address] Altagracia Mancilla RN 505 [place] [address] 08/29/2025 12:45 PM EST Office Visit [facility] ADULT DENTAL 230 [place] [address] Zhanna Hernandez documented as of this encounter [...] documented as of this encounter Care Teams Incoming Inspector Relationship Specialty Start Date End Date Aaron Pisano MD 230 [place] [address] PCP - General Internal Medicine 05/10/14 Antonietta Lim Engraving Press OperatorEducational Administration Teacher 09/18/24 documented as of this encounter
--- OUTSIDE RECORDS SUMMARY | 2025-05-30 18:01 | XMS_ITS | Encounter Summary ---
Author Organization [employer] Address 75 [facility] 7t [place] [address] Care Team Providers Care Amusement Ride Operator Name Role Phone Aaron Pisano MD Primary Care Provide r Encounter Details Date Type Department Care Team ([facility] st Contact Info) Description 04/05/2025 Telephone [facility] MEDICINE [address] [place] [address] Aaron Pisano MD 230 [place] [address] Social History Tobacco Use Types Packs/Day Years [...] EDT Clinical Support [facility] MEDICINE [address] [place] [address] Altagracia Mancilla RN 505 [place] [address] 08/29/2025 12:45 PM EST Office Visit [facility] ADULT DENTAL [address] [place] [address] Zhanna Hernandez documented as of this encounter [...] documented as of this encounter Care Teams Amusement Ride Operator Relationship Specialty Start Date End Date Aaron Pisano MD [address] [place] [address] PCP - General Internal Medicine 05/10/14 Antonietta Lim Senior Ui Software EngineerSpooler Operator 09/18/24 documented as of this encounter
--- OUTSIDE RECORDS SUMMARY | 2025-05-30 18:01 | XMS_ITS | Encounter Summary ---
Author Organization [employer] Address 75 [facility] 7t [place] [address] Care Team Providers Care Javascript Software Engineer Name Role Phone Aaron Pisano MD Primary Care Provide r Reason for Visit * Reason Onset Date Comments PT-1 05/15/2025 Encounter Details Date Type Department Care Team ([facility] Contact Info) Description 05/15/2025 Telephone [facility] MEDICINE [address] [place] [address] Aaron Pisano MD 230 [place] [address] PT-1 Social History Tobacco Use Types Packs/Day Years [...] encounter Miscellaneous Notes * Telephone Encounter - Berto Cuellar - 05/15/2025 10:34 AM EDT Patient calling requesting PT1 Home Address verified: Y/N: Yes Provider name or facility name: [facility] Infectious Disease Facility Address: [address] [place] [address] Escort needed: Y/N: No Do you have a wheelchair: Y/N: No If yes- Manual or electric: N/A Visits: Twice a month documented in this encounter Plan of Treatment Upcoming Encounters Date Type Department Care Team (Late st Contact Info) Description 05/31/2025 11:30 AM EDT Clinical Support [facility] MEDICINE [address] [place] [address] Altagracia Mancilla RN [address] [place] [address] 08/29/2025 12:45 PM EST Office Visit [facility] ADULT DENTAL [address] [place], [place] [phone] Zhanna Hernandez documented as of this encounter Goals Goal Patient Goal Type Associated Problems Recent Progress Patient-Stated? Author Blood Pressure < 140/90 Blood Pressure 130/83( 025 3:21 PM EDT) Giovanna Edwards, Carleen documented as of this encounter Visit Diagnoses Not on filedocumented in this encounter Additional Health Concerns Assessment Noted Time PHQ-9 Depression Total Score: 2 06/05/20 24 8:38 AM EDT documented as of this encounter Care Teams Javascript Software Engineer Relationship Specialty Start Date End Date Aaron Pisano MD 230 [place] [address] PCP - General Internal Medicine 05/10/14 Antonietta Lim Program Development ManagerHospital Personnel Director 09/18/24 documented as of this encounter
--- OUTSIDE RECORDS SUMMARY | 2025-05-30 18:01 | XMS_ITS | Encounter Summary ---
Author Organization [employer] Address 75 [facility] 7t [place] [address] Care Team Providers Care Sales Representative [employer] Products Name Role Phone Aaron Pisano MD Primary Care Provide r Reason for Visit * Reason Onset Date Comments Med Refill 05/24/2025 Encounter Details Date Type Department Care Team ([facility] st Contact Info) Description 05/24/2025 Refill [facility] ADULT DENTAL [address] [place] [address] Miki Sarkar DDS [address] [place] [address] Social History Tobacco Use Types Packs/Day Years [...] encounter Miscellaneous Notes * Telephone Encounter - Miki Sarkar DDS - 05/24/2025 2:41 PM EDT Approving, but needs appt for additional refills. documented in this encounter Plan of Treatment Upcoming Encounters Date Type Department Care Team (Late st Contact Info) Description 05/31/2025 11:30 AM EDT Clinical Support [facility] MEDICINE [address] [place] [address] Altagracia Mancilla RN 505 [place] [address] 08/29/2025 12:45 PM EST Office Visit [facility] ADULT DENTAL [address] [place] [address] Zhanna Hernandez documented as of this encounter Goals Goal Patient Goal Type Associated Problems Recent Progress Patient-Stated? Author Blood Pressure < 140/90 Blood Pressure 130/83( 025 3:21 PM EDT) No Giovanna Banks, PharmD documented as of this encounter Visit Diagnoses Not on filedocumented in this encounter Additional Health Concerns Assessment Noted Time PHQ-9 Depression Total Score: 2 06/05/20 24 8:38 AM EDT documented as of this encounter Care Teams Sales Representative [employer] Relationship Specialty Start Date End Date Aaron Pisano MD [address] [place] [address] PCP - General Internal Medicine 05/10/14 Antonietta Lim Spray Gun StriperSlate Trimmer 09/18/24 documented as of this encounter
--- OUTSIDE RECORDS SUMMARY | 2025-05-30 18:01 | XMS_ITS | Encounter Summary ---
Author Organization [employer] Address 75 [facility] 7t [place] [address] Care Team Providers Care Any Commodity Sales Deliverer Name Role Phone Aaron Pisano MD Primary Care Provide r Reason for Visit * Reason Comments Med Refill Encounter Details Date Type Department Care Team ([facility] st Contact Info) Description 04/05/2025 Refill [facility] MEDICINE [address] [place] [address] Aaron Pisano MD [address] [place], [place] [phone] Chronic midline low back pain without sciatica [...] Description 05/31/2025 11:30 AM EDT Clinical Support [facility] MEDICINE [address] [place] [address] Altagracia Mancilla RN 505 [place] [address] 08/29/2025 12:45 PM EST Office Visit [facility] ADULT DENTAL [address] [place] [address] Zhanna Hernandez documented as of this encounter [...] documented as of this encounter Care Teams Any Commodity Sales Deliverer Relationship Specialty Start Date End Date Aaron Pisano MD 230 [place] [address] PCP - General Internal Medicine 05/10/14 Antonietta Lim Catalogue IllustratorBatch Dumper 09/18/24 documented as of this encounter
--- OUTSIDE RECORDS SUMMARY | 2025-05-30 18:01 | XMS_ITS | Encounter Summary ---
Author Organization [employer] Address 75 [facility] 7 [place] [address] Care Team Providers Care Residential Door Installer Name Role Phone Aaron Pisano MD Primary Care Provide r Reason for Visit * Reason Onset Date Comments Med Refill 01/07/2025 Encounter Details Date Type Department Care Team (Late st Contact Info) Description 01/07/2025 Refill [facility] MEDICINE [address] [place] [address] Fam Hartman MD [address] [place] [address] Chronic midline low back pain without sciatica [...] Clinical Support [facility] MEDICINE [address] [place] [address] Altagracia Mancilla RN 505 [place] [address] 08/29/2025 12:45 PM EST Office Visit [facility] ADULT DENTAL [address] [place] [address] Zhanna Hernandez documented as of this encounter [...] documented as of this encounter Care Teams Residential Door Installer Relationship Specialty Start Date End Date Aaron Pisano MD 230 [place] [address] PCP - General Internal Medicine 05/10/14 Antonietta Lim Clinical Appeals ReviewerHairspring Assembler 09/18/24 documented as of this encounter
--- OUTSIDE RECORDS SUMMARY | 2025-05-30 18:01 | XMS_ITS | Encounter Summary ---
Author Organization [employer] Address 75 [facility] 7 [place] [address] Care Team Providers Care Us Customs And Border Officer Name Role Phone Aaron Pisano MD Primary Care Provide r Reason for Visit * Reason Onset Date Comments Med Refill 01/04/2025 Encounter Details Date Type Department Care Team (Late st Contact Info) Description 01/04/2025 Refill [facility] MEDICINE [address] [place] [address] Fam Hartman MD [address] [place] [address] Chronic midline low back pain without sciatica [...] Support [facility] MEDICINE [address] [place] [address] Altagracia Mancilla RN 505 [place] [address] 08/29/2025 12:45 PM EST Office Visit [facility] ADULT DENTAL [address] [place] [address] Zhanna Hernandez documented as of this encounter [...] documented as of this encounter Care Teams Us Customs And Border Officer Relationship Specialty Start Date End Date Aaron Pisano MD 230 [place] [address] PCP - General Internal Medicine 05/10/14 Antonietta Lim Business AdministratorBusiness Management Specialist 09/18/24 documented as of this encounter
--- OUTSIDE RECORDS SUMMARY | 2025-05-30 18:01 | XMS_ITS | Encounter Summary ---
Author Organization [employer] Address 75 [facility] 7t [place] [address] Care Team Providers Care Phys Therapist Name Role Phone Aaron Pisano MD Primary Care Provide r Reason for Visit * Reason Onset Date Comments pt1 01/07/2025 Encounter Details Date Type Department Care Team ([facility] st Contact Info) Description 01/07/2025 Telephone [facility] MEDICINE [address] [place] [address] Aaron Pisano MD 230 [place] [address] pt1 Social History Tobacco Use Types Packs/Day [...] requirement. Please update information for address [address] [place] [facility] [address] documented in this encounter Plan of Treatment Upcoming Encounters Date Type Department Care Team (Late st Contact Info) Description 05/31/2025 11:30 AM EDT Clinical Support [facility] MEDICINE [address] [place] [address] Altagracia Mancilla RN 505 [place] [address] 08/29/2025 12:45 PM EST Office Visit [facility] ADULT DENTAL [address] [place] [address] Zhanna Hernandez documented as of this encounter [...] documented as of this encounter Care Teams Phys Therapist Relationship Specialty Start Date End Date Aaron Pisano MD [address] [place] [address] PCP - General Internal Medicine 05/10/14 Antonietta Lim Firebrick And Refractory Tile RepairerFiltering Machine Tender 09/18/24 documented as of this encounter
--- OUTSIDE RECORDS SUMMARY | 2025-05-30 18:01 | XMS_ITS | Encounter Summary ---
Author Organization [employer] Address 75 [facility] 7t [place] [address] Care Team Providers Care Product Support Consultant Name Role Phone Aaron Pisano MD Primary Care Provide r Reason for Visit * Reason Onset Date Comments Pt-1 05/24/2025 Encounter Details Date Type Department Care Team ([facility] Contact Info) Description 05/24/2025 Telephone [facility] [address] [place] [address] Aaron Pisano MD 230 [place] [address] Pt-1 Social History Tobacco Use Types Packs/Day Years [...] * Telephone Encounter - Berto Cuellar - 05/24/2025 12:02 PM EDT Patient calling requesting PT1 Home Address verified: Y/N: Yes Provider name or facility name: [facility] Facility Address: [address] [place] [address] Escort needed: Y/N: No Do you have a wheelchair: Y/N: No If yes- Manual or electric: N/A Visits: Once a month documented in this encounter Plan of Treatment Upcoming Encounters Date Type Department Care Team (Late st Contact Info) Description 05/31/2025 11:30 AM EDT Clinical Support [facility] MEDIC[facility] [address] [place] [address] Altagracia Mancilla RN [address] [place] [address] 08/29/2025 12:45 PM EST Office Visit [facility] ADULT DENTAL 230 [place] [address] Zhanna Hernandez documented as of this encounter [...] documented as of this encounter Care Teams Product Support Consultant Relationship Specialty Start Date End Date Aaron Pisano MD 230 [place] [address] PCP - General Internal Medicine 05/10/14 Antonietta Lim Manager MoneyPresident And Chief Operating Officer 09/18/24 documented as of this encounter
--- OUTSIDE RECORDS SUMMARY | 2025-05-30 18:01 | XMS_ITS | Encounter Summary ---
Author Organization [employer] Address [address] [facility] [address] 7t [place] [address] Care Team Providers Care Intelligence Analyst Name Role Phone Aaron Pisano MD Primary Care Provide r Reason for Visit * Reason Onset Date Comments Med Refill 05/02/2025 Encounter Details Date Type Department Care Team (Late st Contact Info) Description 05/02/[address] [facility] CHC MED & PEDS [address] [place], [place] [phone] Aaron Pisano MD 230 [place] [address] Chronic midline low back pain without sciatica [...] Description 05/31/2025 11:30 AM EDT Clinical Support [facility] MEDICINE [address] [place] [address] Altagracia Mancilla RN 505 [place] [address] 08/29/2025 12:45 PM EST Office Visit [facility] ADULT DENTAL [address] [place] [address] Zhanna Hernandez documented as of this encounter [...] documented as of this encounter Care Teams Intelligence Analyst Relationship Specialty Start Date End Date Aaron Pisano MD [address] [place] [address] PCP - General Internal Medicine 05/10/14 Antonietta Lim Electromechanical Assembly TechnicianFire Protection Equipment Technician 09/18/24 documented as of this encounter
--- OUTSIDE RECORDS SUMMARY | 2025-05-30 18:01 | XMS_ITS | Encounter Summary ---
Author Organization [employer] Address 75 [facility] 7t [place] [address] Care Team Providers Care Glue Clamp Operator Name Role Phone Aaron Pisano MD Primary Care Provide r Reason for Visit * Reason Onset Date Comments Appointment Request 04/09/2025 Encounter Details Date Type Department Care Team ([facility] Contact Info) Description 04/09/2025 Telephone [facility] MEDICINE [address] [place] [address] Aaron Pisano MD 230 [place] [address] Appointment Request Social History Tobacco Use Types [...] , pt has covid Contact pt at [phone] documented in this encounter Plan of Treatment Upcoming Encounters Date Type Department Care Team (Late st Contact Info) Description 05/31/2025 11:30 AM EDT Clinical Support [facility] MEDICINE [address] [place] [address] Altagracia Mancilla RN [address] [place] [address] 08/29/2025 12:45 PM EST Office Visit [facility] ADULT DENTAL [address] [place] [address] Zhanna Hernandez documented as of this encounter [...] documented as of this encounter Care Teams Glue Clamp Operator Relationship Specialty Start Date End Date Aaron Pisano MD [address] [place] [address] PCP - General Internal Medicine 05/10/14 Antonietta Lim Break Out WorkerChemist Steroids 09/18/24 documented as of this encounter
--- OUTSIDE RECORDS SUMMARY | 2025-05-30 18:01 | XMS_ITS | Encounter Summary ---
Author Organization [employer] Address 75 [facility] 7t [place] [address] Care Team Providers Care Seam Press Operator Name Role Phone Aaron Pisano MD Primary Care Provide r Reason for Visit * Reason Onset Date Comments Med Refill 05/01/2025 Encounter Details Date Type Department Care Team ([facility] st Contact Info) Description 05/01/[address] [facility] MEDICINE [address] [place] [address] Aaron Pisano MD [address] [place] [address] Social History Tobacco Use Types Packs/Day Years [...] Support [facility] MEDICINE [address] [place] [address] Altagracia Mancilla RN 505 [place] [address] 08/29/2025 12:45 PM EST Office Visit [facility] ADULT DENTAL [address] [place] [address] Zhanna Hernandez documented as of this encounter [...] documented as of this encounter Care Teams Seam Press Operator Relationship Specialty Start Date End Date Aaron Pisano MD [address] [place] [address] PCP - General Internal Medicine 05/10/14 Antonietta Lim Interpretive Program CoordinatorPlanogrammer 09/18/24 documented as of this encounter
== END 2025-05-30 14:44 | disposition home or self-care (01) ==
LOC: HO.HPS 14:07
PROVIDERS: PCP Internal Medicine; Visit Provider Internal Medicine
DX: E66.9 Obesity, unspecified (principal); J30.9 Allergic rhinitis, unspecified; J45.909 Unspecified asthma, uncomplicated; R06.83 Snoring; R05.9 Cough, unspecified
CPT/HCPCS: 99213

== ENCOUNTER 2025-06-10 13:47 | Outpatient (AMB) | payer MEDICAID, SELFPAY ==
--- NOTE | 2025-06-10 13:49 | A.OFFVIS_ITS ---
Intake Visit Reasons: follow up Allergies tramadol Allergy (Intermediate, Verified 05/30/25 14:44) swelling buspirone (From BuSpar) Allergy (Mild, Verified 05/30/25 14:44) rash lamotrigine (From Lamictal) Allergy (Mild, Verified 05/30/25 14:44) Unknown naproxen Allergy (Unknown, Verified 05/30/25 14:44) anaphylaxis NSAIDS (Non-Steroidal Anti-Inflamma (NSAIDS (NON-STEROIDAL ANTI-INFLAMMA) Allergy (Unknown, Verified 05/30/25 14:44) ANAPHYLAXIS Penicillins (PENICILLINS) Allergy (Unknown, Verified 05/30/25 14:44) ANAPHYLAXIS methotrexate Allergy (Verified 05/30/25 14:44) Rash HPI Comments Details: 49 y/o woman with PTSD, depression, diagnosis of bipolar disorder, obesity, atonic bladder, and migraine. She is presenting with migraines. She reports an increase in headache frequency, experiencing them almost daily, necessitating extensive reliance on Imitrex. Originally on Topiramate at 100 mg nightly, her regimen has been adjusted to 50 mg twice daily. She continues the use of Lasix, contributing to hypokalemia. Additionally, recent eye examinations were unremarkable, excluding high intraocular pressure as a cause. Low potassium levels discussed are a result of Lasix and unrelated to the migraines. [facility] Medical History GERD (gastroesophageal reflux disease) Asthma exacerbation Sinusitis Somnolence, daytime Snoring Morbid obesity Cough Asthma Allergic rhinitis Obesity (BMI 30-39.9) PCOS (polycystic ovarian syndrome) Vitamin D deficiency Surgical History History of bladder surgery Hx of dilation and curettage Hx of section Hx laparoscopic cholecystectomy Hx of tooth extraction Hx of hysterectomy Family History Father Heart disease Mother Diabetes mellitus Raynaud disease Paternal Grandfather Diabetes mellitus Paternal Uncle Diabetes mellitus Social History Household Members: Children Housing: House Do you presently have visiting nurse or other home services: No (appointment for OPTICAL LAB TECHNICIAN, in progress) Alcohol intake: current Alcohol intake frequency: holidays/special occasions only Alcohol type: wine Patient Tobacco Use Status: Former Tobacco user Tobacco use type: Cigarette Cigarettes Per Day: 0 Second Hand Smoke Exposure: No Substance Use Type: Marijuana Advance Directives Date on File: 01/12/22 service: No Current occupational status: unemployed Review of Systems Narrative - Neurological: Reports headaches almost daily; Denies new medications except for adjusted Topiramate dosage. - No other systems discussed. Physical Exam Neuro Other: Mental Status: Alert and oriented to person, place, and time. Normal attention. Normal spontaneous speech, fluency, and comprehension. No obvious issues with mood and memory. Affect is appropriate. Cranial Nerves: CN II: Visual agosto full to confrontation, visual acuity intact. CN III, IV, : Pupils equal, round, reactive to light and accommodation. Extraocular movements are normal. CN V: Facial sensation is normal. CN VII: Facial movements symmetrical. CN VIII: Hearing intact to bedside conversation is normal. CN IX, X: Palate elevates symmetrically. CN XI: Shoulder shrug and head turn symmetrical. CN XII: Tongue midline without atrophy or fasciculations. Extrapyramidal: Full facial expressions and blinking. No rigidity. Movements are appropriate with no tremor or abnormality. Speech: Normal; no dysarthria or tremor. Assessment & Plan Assessment & Plan (1) Migraine: Comment: Meds tried: Topiramate, sumatriptan Home PSG at [facility] in 2019: No RACHANA, snoring. CT brain WO at [facility] in 2016: WNL PSG at [facility] in 2010: TST RDI 3, REM RDI 7.4. Code(s): G43.909 - Migraine, unspecified, not intractable, without status migrainosus Category: Medical Qualifiers: Migraine type: without aura Status migrainosus presence: without status migrainosus Intractability: not intractable Qualified Code(s): G43.009 - Migraine without aura, not intractable, without status migrainosus Plan Impression recommendations: 49 years old woman with bipolar disorder and migraine without aura type of headaches. Recent eye examination was okay. She was switch from 100 mg topiramate at night 250 mg twice a day with p.r.n. sumatriptan. If this approach would not work, I would try alternate medicine. Medications: New topiramate 50 mg PO BID 180 tabs 0RF Refilled sumatriptan succinate 50 mg orally once a day as needed; 10 tabs 2RF 30 days Discontinued topiramate Discontinued Reason: Doctor's Order 100 mg PO BEDTIME 90 tabs 0RF Coding Level of Care Code Est Pt Level 4 (88530) Diagnoses Migraine without aura and without status migrainosus, not intractable G43.009 Migraine type: without aura Status migrainosus presence: without status migrainosus Intractability: not intractable
== END 2025-06-10 13:56 | disposition home or self-care (01) ==
LOC: HO.HSM 13:48
PROVIDERS: PCP Internal Medicine; Visit Provider Psychiatry & Neurology Neurology
DX: G43.009 Migraine without aura, not intractable, without status migrainosus (principal)
CPT/HCPCS: 99214

== ENCOUNTER → 2025-06-10 13:47 | Outpatient (BNVA) | payer MEDICAID, SELFPAY | PROVIDERS: PCP Internal Medicine; Visit Provider Psychiatry & Neurology Neurology | DX: G43.009 Migraine without aura, not intractable, without status migrainosus (principal) | CPT/HCPCS: 99212 ==

== ENCOUNTER 2025-07-02 11:41 | Outpatient (AMB) | payer MEDICAID, SELFPAY ==
--- OUTSIDE RECORDS SUMMARY | 2025-07-02 09:00 | XMS_ITS | Encounter Summary ---
Author Organization [employer] Address [address] [facility] [address] [place] [address] Care Team Providers Care Baggage And Mail Agent Name Role Phone Aaron Pisano MD Primary Care Provide r Reason for Referral * Consultation (Routine) - Closed Specialty Diagnoses / Procedures Referred By Contact Referred To Contact Physical Medicine and Rehabilitation Diagnoses Chronic midline low back pain without sciatica Aaron Pisano MD [address] [place] [address] Phone: tel: fax: [facility] [address] [facility] [address] [place], [place] Phone: tel: fax: Referral ID Status Reason Start Date Expiration Date V isits Requested Visits Authorized [id number] Closed Specialty Services Required 07/02/2025 07/02/2026 1 1 * Imaging (Routine) - Authorized Specialty Diagnoses / Procedures Referred By Contac t Referred To Contact Radiology Diagnoses Chronic midline low back pain without sciatica Procedures MR Lumbar Spine w/o Contrast Aaron Pisano MD [address] [place] [address] Phone: tel: fax: [facility] [address] [place] [address] Phone: tel: fax: Referral ID Status Reason Start Date Expiration Date V isits Requested Visits Authorized [id number] Authorized 07/02/2025 07/02/2026 1 1 Encounter Details Date Type Department Care Team (Late st Contact Info) Description 07/02/2025 9:00 AM EST Telemedicine [facility] MEDICINE [address] [place] [address] Aaron Pisano MD [address] [place] [address] Chronic midline low back pain without sciatica (Primary Dx); Mild intermittent asthma without complication; Severe obesity (CMS/HCC) (HCC); Migraine without aura and without status migrainosus, not intractable; Chronic bilateral low back pain without sciatica; Intractable vomiting with nausea Social History Tobacco Use Types Packs/Day Years [...] as of this encounter Progress Notes * Aaron Harris MD - 07/02/2025 9:00 AM EST SUBJECTIVE Zee Villanueva is a 49 y.o. female who presents for No chief complaint on file.. HPI Review of Systems Constitutional: Negative for fever. HENT: Negative for sore throat. Respiratory: Negative for cough and shortness of breath. Cardiovascular: Negative for chest pain. Gastrointestinal: Negative for abdominal pain. Neurological: Negative for headaches. Allergies[1] OBJECTIVE There were no vitals filed for this visit. Physical Exam Assessment/Plan Problem List Items Addressed This Visit Chronic midline low back pain without sciatica - Primary Televisit Pt with c/o persistent chronic low back pain , not improving, intensity 03/17 Previous work up included: MRI of her LS spine done on [...] c/o worsening low back pain associated with radicular symptoms 12/11/2021 showed: Bone marrow edema /stress response within the left L5 pedicle Patient was referred to Spine surgeon for evaluation, question of conservative treatment VS other ?bracing ? Pt was evaluated by their impression was that she had Lumbar radiculitis L> R , stress reaction left L5 pedicle, and recommended Gabapentin 100 mg po TID (recently lowered the dose) Repeat MRI LS spine Pt will be referred back to [facility] He Oxycodone dose will continue at 5 mg po BID Relevant Medications baclofen (Lioresal) 10 MG tablet oxyCODONE (Roxicodone) 5 MG immediate release tablet Other Relevant Orders MR Lumbar Spine w/o Contrast Referral to Physical Medicine Rehab Asthma Under the care of Dr James Diesel Engine Pipe Fitter , last seen 05/30/2025 No recent exacerbations Relevant Medications diphenhydrAMINE (Laureen-Dryl) 25 MG tablet Severe obesity (CMS/HCC) (HCC) Previously referred to [facility] Comprehensive weight management program. Seen twice, they prompter to discuss with her mental health provider her eating habits before they would consider accepting her into the program. Pt would like to discuss GLP1s for weight loss next time she comes in Migraine Under the care of Neurologist Dr florence Last seen 06/10/2025 Relevant Medications baclofen (Lioresal) 10 MG tablet oxyCODONE (Roxicodone) 5 MG immediate release tablet Other Visit Diagnoses Intractable vomiting with nausea Relevant Medications baclofen (Lioresal) 10 MG tablet diphenhydrAMINE (Laureen-Dryl) 25 MG tablet Future Appointments Date Time Provider Department Center 07/29/2025 2:00 PM Altagracia Mancilla RN [facility] 08/29/2025 12:45 PM Zhanna HERNANDEZ [facility] [1] Allergies Allergen Reactions Albuterol Other reaction(s): Swollen Tonsils Nsaids Anaphylaxis Other reaction(s): unspecified Aspirin Other reaction(s): swelling of throat Cranberry Swelling Cranberry Extract Doxycycline Ibuprofen Naproxen Penicillin G Tramadol Buspirone Rash Lamotrigine Unknown Methotrexate Rash Other reaction(s): rash documented in this encounter Miscellaneous Notes * Assessment & Plan Note - Aaron Harris MD - 07/02/2025 9:21 AM EST Associated Problem(s): Severe obesity (CMS/HCC) (HCC) Previously referred to [facility] Comprehensive weight management program. Seen twice, they prompter to discuss with her mental health provider her eating habits before they would consider accepting her into the program. Pt would like to discuss GLP1s for weight loss next time she comes in * Assessment & Plan Note - Aaron Harris MD - 07/02/2025 9:20 AM EST Associated Problem(s): Chronic midline low back pain without sciatica Televisit Pt with c/o persistent chronic low back pain , not improving, intensity 03/17 Previous work up included: MRI of her LS spine done on [...] c/o worsening low back pain associated with radicular symptoms 12/11/2021 showed: Bone marrow edema /stress response within the left L5 pedicle Patient was referred to Spine surgeon for evaluation, question of conservative treatment VS other ?bracing ? Pt was evaluated by their impression was that she had Lumbar radiculitis L> R , stress reaction left L5 pedicle, and recommended Gabapentin 100 mg po TID (recently lowered the dose) Repeat MRI LS spine Pt will be referred back to [facility] He Oxycodone dose will continue at 5 mg po BID * Assessment & Plan Note - Aaron Harris MD - 07/02/2025 9:15 AM EST Associated Problem(s): Chronic low back pain Televisit Pt with c/o persistent chronic low back pain , not improving, intensity 03/17 Previous work up included: MRI of her LS spine done on [...] c/o worsening low back pain associated with radicular symptoms 12/11/2021 showed: Bone marrow edema /stress response within the left L5 pedicle Patient was referred to Spine surgeon for evaluation, question of conservative treatment VS other ?bracing ? Pt was evaluated by their impression was that she had Lumbar radiculitis L> R , stress reaction left L5 pedicle, and recommended Gabapentin 100 mg po TID (recently lowered the dose) Repeat MRI LS spine Pt will be referred back to [facility] He Oxycodone dose will continue at 5 mg po BID * Assessment & Plan Note - Aaron Harris MD - 07/02/2025 9:06 AM EST Associated Problem(s): Migraine Under the care of Neurologist Dr florence Last seen 06/10/2025 * Assessment & Plan Note - Aaron Harris MD - 07/02/2025 9:04 AM EST Associated Problem(s): Asthma Under the care of Dr James Diesel Engine Pipe Fitter , last seen 05/30/2025 No recent exacerbations documented in this encounter Plan of Treatment Upcoming Encounters Date Type Department Care Team (Late st Contact Info) Description 07/29/2025 2:00 PM EST Telemedicine [facility] MED & PEDS [address] [place] [address] Altagracia Mancilla, GRACIELA [address] [place] [address] 08/29/2025 12:45 PM EST Office Visit [facility] ADULT DENTAL [address] [place] [address] Zhanna Hernandez 10/03/2025 10:00 AM EST Office Visit [facility] [address] [place] [address] Aaron Pisano MD [address] [place] [address] Scheduled Orders Name Type Priority Associated Diagnoses Orde r Schedule MR Lumbar Spine w/o Contrast Imaging Routine Chronic midline low back pain without sciatica Ordered: 07/02/2025 Scheduled Referrals Name Type Priority Associated Diagnoses Orde r Schedule Referral to Physical Medicine Rehab Outpatient Referral Routine Chronic midline low back pain without sciatica Expected: 07/02/2025 (Approximate), Expires: 07/02/2026 documented as of this encounter Goals Goal Patient Goal Type Associated Problems Recent Progress Patient-Stated? Author Blood Pressure < 140/90 Blood Pressure 130/83( 025 3:21 PM EDT) No Giovanna Banks, PharmD documented as of this encounter Visit Diagnoses Diagnosis Chronic midline low back pain without sciatica- Primary Mild intermittent asthma without complication Severe obesity (CMS/HCC) (HCC) Morbid obesity Migraine without aura and without status migrainosus, not intractable Chronic bilateral low back pain without sciatica Intractable vomiting with nausea documented in this encounter Additional Health Concerns Assessment Noted Time PHQ-9 Depression Total Score: 2 06/05/20 24 8:38 AM EDT documented as of this encounter Care Teams Baggage And Mail Agent Relationship Specialty Start Date End Date Aaron Pisano MD [address] [place] [address] PCP - General Internal Medicine 05/10/14 Antonietta Lim Care ProfessionalNetwork Mgr 09/18/24 documented as of this encounter
--- NOTE | 2025-07-02 11:51 | MHC.OFFVIS ---
Vital Signs 07/02/25 12:02 Height 4 ft 11 in Weight 218 lb BMI 44.0 BP 104/42 L Blood Pressure Location Rt brachial Position Sitting Pulse 76 Pulse Source Pulse Oximeter Pulse Oximetry (%) 97 Oxygen Delivery Method Room Air Intake Visit Reasons: 2-3 mo Intake Note: Est pt for mgmt of GERD + chronic abd pain. CC; C/O intermittent GERD persistence, diarrhea and abd pain. Pt states that the abd pain (generalized) and diarrhea occur more frequently. She does believe that the PPI is still helping with controlling the GERD. Occasional breakthrough episodes occur. Station Mechanic Apprentice Required: No Accompanied by: Self / Same As Patient Allergies tramadol Allergy (Intermediate, Verified 07/02/25 11:51) swelling buspirone (From BuSpar) Allergy (Mild, Verified 07/02/25 11:51) rash lamotrigine (From Lamictal) Allergy (Mild, Verified 07/02/25 11:51) Unknown naproxen Allergy (Unknown, Verified 07/02/25 11:51) anaphylaxis NSAIDS (Non-Steroidal Anti-Inflamma (NSAIDS (NON-STEROIDAL ANTI-INFLAMMA) Allergy (Unknown, Verified 07/02/25 11:51) ANAPHYLAXIS Penicillins (PENICILLINS) Allergy (Unknown, Verified 07/02/25 11:51) ANAPHYLAXIS methotrexate Allergy (Verified 07/02/25 11:51) Rash HPI HPI 2-3 mo: Details: LAST VISIT: Vomiting GERD (gastroesophageal reflux disease) Diarrhea Abdominal pain Plan Patient will continue to take Reglan as needed for nausea. Continue PPI. Avoid dietary triggers and late night snacking. Staying upright for minimum 3 hours after meals discussed with patient. Patient will be given script for dicyclomine. Patient will need to be careful as she is taking baclofen for back pain and now dicyclomine they can both slow down bowel motility which could cause constipation. Patient was encouraged to take fiber with pre and probiotic. Patient will follow-up in the office in 2-3 months, sooner on as needed basis. Patient is agreeable to current plan of care and verbalizes understanding of instructions. She was given the opportunity to ask questions and all questions answered. ? Thank you for allowing me to participate in her care New dicyclomine 10 mg PO BID PRN 90 caps 2RF abdominal discomfort K58.9 Refilled metoclopramide HCl (Reglan) Take 15 minutes before meals 5 mg PO TIDWMEAL 40 tabs 0RF R11.0 TODAY'S VISIT: Patient is here today for follow-up. Patient reports that she has multiple bowel movements throughout the day. Takes dicyclomine, however feels like it is not helping. Patient is no longer taking fiber as she was unable to afford it. Insurance was not covering it. Patient denies melena, hematochezia. Unable to lose weight. Patient reports that she is not eating more than 2 meals a day. Patient denies dyspepsia, dysphagia or odynophagia. Reports that Nexium is helping with reflux. Patient denies any epigastric pain postprandially. Denies any nausea or vomiting. Patient reports that she frequently has to take Imodium to control diarrhea. Patient does report going under lot of stress. [facility] Medical History GERD (gastroesophageal reflux disease) Asthma exacerbation Sinusitis Somnolence, daytime Snoring Morbid obesity Cough Asthma Allergic rhinitis Obesity (BMI 30-39.9) PCOS (polycystic ovarian syndrome) Vitamin D deficiency Surgical History History of bladder surgery Hx of dilation and curettage Hx of section Hx laparoscopic cholecystectomy Hx of tooth extraction Hx of hysterectomy Family History Father Heart disease Mother Diabetes mellitus Raynaud disease Paternal Grandfather Diabetes mellitus Paternal Uncle Diabetes mellitus Social History Household Members: Children Housing: House Do you presently have visiting nurse or other home services: No (appointment for KINDERGARTEN INSTRUCTIONAL ASSISTANT, in progress) Alcohol intake: current Alcohol intake frequency: holidays/special occasions only Alcohol type: wine Patient Tobacco Use Status: Former Tobacco user Tobacco use type: Cigarette Cigarettes Per Day: 0 Second Hand Smoke Exposure: No Substance Use Type: Marijuana Advance Directives Date on File: 01/12/22 service: No Current occupational status: unemployed Review of Systems Const Denies weight gain, Denies weight loss and Reports other (Episode of dizziness few days ago) ENT Reports no additional complaints, Denies dysphagia and Denies odynophagia Card Reports no additional complaints Resp Reports no additional complaints GI Reports abdominal pain, Denies belching, Denies melena, Reports bloating, Denies change in bowel habits, Denies dysphagia, Denies excessive flatus, Denies dyspepsia, Reports heartburn (Occasional), Denies diarrhea, Reports loose stools, Denies nausea, Denies odynophagia and Denies vomiting Reports no additional complaints Musc Reports no additional complaints Neuro Reports no additional complaints Psych Reports no additional complaints Endo Reports no additional complaints Physical Exam Vital Signs: Last Vital Signs Pulse 76 07/02/25 12:02 BP 104/42 L 07/02/25 12:02 Pulse Ox 97 07/02/25 12:02 Oxygen Delivery Method Room Air 07/02/25 12:02 BMI result Body Mass Index 44.0 Const General: healthy appearing and no acute distress Nutritional Appearance: obese Orientation/consciousness: patient oriented x3 Resp Effort & Inspection: normal respiratory effort, able to speak in complete sentences, no tracheal deviation and symmetric chest movement Auscultation: clear to auscultation bilaterally Cardio Rate: regular rate GI Inspection: Yes normal to inspection, No distended and Yes obesity Palpation (GI): Soft to palpation, not firm, nontender and No hepatosplenomegaly present Auscultation: normal bowel sounds General: Yes no CVA tenderness Back/Spine/Pelvis Back: no CVA tenderness Skin General skin exam: elasticity normal, turgor normal and dry skin Neuro General: patient oriented x3 Psych Appearance: grossly normal Mental Status: mental status grossly normal Assessment & Plan Assessment & Plan (1) Vomiting: Code(s): R11.10 - Vomiting, unspecified Category: Medical Qualifiers: Vomiting type: unspecified Nausea presence: with nausea Qualified Code(s): R11.2 - Nausea with vomiting, unspecified (2) GERD (gastroesophageal reflux disease): Code(s): K21.9 - Gastro-esophageal reflux disease without esophagitis Category: Medical Qualifiers: Esophagitis presence: esophagitis presence not specified Qualified Code(s): K21.9 - Gastro-esophageal reflux disease without esophagitis (3) Diarrhea: Code(s): R19.7 - Diarrhea, unspecified Category: Medical Qualifiers: Diarrhea type: functional diarrhea Qualified Code(s): K59.1 - Functional diarrhea (4) Abdominal pain: Code(s): R10.9 - Unspecified abdominal pain Qualifiers: Abdominal location: generalized Qualified Code(s): R10.84 - Generalized abdominal pain Plan Patient will continue current PPI therapy. Continue eating small meals. Patient was encouraged to try to purchase [id number] fiber to help with diarrhea. May take 1-2 capsules daily. Discussed with patient low FODMAP diet. List of food recommended as well as list of food to avoid given to patient. Over a month ago doctor has son send a script for Xifaxan, however unable to get it as insurance was not covering. I will send her a script for rifaximin for 2 weeks. Patient will let us know if she will not be able to purchase it. Patient will follow-up in the office in 5 weeks. Patient was encouraged to call us if she will have worsening symptoms. Patient is agreeable to current plan of care and verbalizes understanding of instructions. She was given the opportunity to ask questions and all questions answered as. Thank you for allowing me to participate in her care Medications: New rifaximin 550 mg PO BID 28 tabs 0RF 14 days Coding Level of Care Code Est Pt Level 4 (22428) Complex visit Add On G2211 Diagnoses Nausea and vomiting, unspecified vomiting type R11.2 Vomiting type: unspecified Nausea presence: with nausea Gastroesophageal reflux disease, unspecified whether esophagitis present K21.9 Esophagitis presence: esophagitis presence not specified Functional diarrhea K59.1 Diarrhea type: functional diarrhea Generalized abdominal pain R10.84 Abdominal location: generalized Time Spent (min) 40 Comment 25 minutes spent with patient and additional 15 minutes spent reviewing her records
[2025-07-02 12:02] VITALS: BP 104/42; PULSE 76; O2SAT 97; BMI 44.0
--- OUTSIDE RECORDS SUMMARY | 2025-07-02 15:33 | XMS_ITS | Encounter Summary ---
Author Organization [employer] Address [address] [facility] [address] [place] [address] Care Team Providers Care Telephone Order Supervisor Name Role Phone Aaron Pisano MD Primary Care Provide r Reason for Visit * Reason Onset Date Comments Reschedule 03/01/2024 Encounter Details Date Type Department Care Team ([facility] Contact Info) Description 03/01/2024 Telephone [facility] MEDICINE [address] [place] [address] Aaron Pisano MD [address] [place] [address] Reschedule Social History Tobacco Use Types Packs/Day [...] a call back in order to r/s VP SECURITIES appt documented in this encounter Plan of Treatment Upcoming Encounters Date Type Department Care Team (Late st Contact Info) Description 07/29/2025 2:00 PM EST Telemedicine [facility] MED & PEDS [address] [place] [address] Altagracia Mancilla, RN [address] [place] [address] 08/29/2025 12:45 PM EST Office Visit [facility] ADULT DENTAL [address] [place] [address] Zhanna Hernandez 10/03/2025 10:00 AM EST Office Visit [facility] MEDICINE [address] [place] [address] Aaron Pisano MD [address] [place] [address] documented as of this encounter Goals Goal [...] as of this encounter Care Teams Telephone Order Supervisor Relationship Specialty Start Date End Date Aaron Pisano MD [address] [place] [address] PCP - General Internal Medicine 05/10/14 Antonietta Lim Cocoa RoasterTax Accountant 09/18/24 documented as of this encounter
--- OUTSIDE RECORDS SUMMARY | 2025-07-02 15:33 | XMS_ITS | Encounter Summary ---
Author Organization [employer] Address [address] [place] [address] 7 [place] [address] Care Team Providers Care Golf Club Repairer Name Role Phone Aaron Pisano MD Primary Care Provide r Reason for Visit * Reason Comments Med Refill Encounter Details Date Type Department Care Team ([facility] st Contact Info) Description 10/08/2024 Refill [facility] MEDICINE 230 [place] [address] Aaron Pisano MD 230 [place] [address] Diarrhea in adult patient; Chronic midline low [...] the past 12 months, has t he [employer], gas, oil or water company threatened to [...] Info) Description 07/29/2025 2:00 PM EST Telemedicine [facility] 505 [place] [address] Altagracia Mancilla, RN 505 [place] [address] 08/29/2025 12:45 PM EST Office Visit [facility] ADULT DENTAL 230 [place] [address] Zhanna Hernandez 10/03/2025 10:00 AM EST Office Visit [facility] [address] [place] [address] Aaron Pisano MD 230 [place] [address] documented as of this encounter Goals Goal Patient Goal Type Associated Problems Recent Progress Patient-Stated? Author Blood Pressure < 140/90 Blood Pressure 130/83( 025 3:21 PM EDT) Giovanna Edwards, SohamD documented as of this encounter Visit Diagnoses Diagnosis Diarrhea in adult patient Chronic midline low back pain without sciatica documented in this encounter Additional Health Concerns Assessment Noted Time PHQ-9 Depression Total Score: 2 06/05/20 24 8:38 AM EDT documented as of this encounter Care Teams Golf Club Repairer Relationship Specialty Start Date End Date Aaron Pisano MD [address] [place] [address] PCP - General Internal Medicine 05/10/14 Antonietta Lim Cracking Unit OperatorSilk Opener 09/18/24 documented as of this encounter
--- OUTSIDE RECORDS SUMMARY | 2025-07-02 15:33 | XMS_ITS | Encounter Summary ---
Author Organization [employer] Address [address] [place] [address] 7 [place] [address] Care Team Providers Care Director Of Radio Services Name Role Phone Aaron Pisano MD Primary Care Provide r Reason for Visit * Reason Onset Date Comments Med Refill 04/02/2025 Encounter Details Date Type Department Care Team ([facility] st Contact Info) Description 04/02/2025 Refill [facility] MEDICINE 230 [place] [address] Aaron Pisano MD 230 [place] [address] Diarrhea in adult patient Social History Tobacco [...] the past 12 months, has t he [employer], gas, oil or water company threatened to [...] Info) Description 07/29/2025 2:00 PM EST Telemedicine [facility]S 505 [place] [address] Altagracia Mancilla, RN 505 [place] [address] 08/29/2025 12:45 PM EST Office Visit [facility] ADULT DENTAL 230 [place] [address] Zhanna Hernandez 10/03/2025 10:00 AM EST Office Visit [facility] MEDICINE 230 [place], [place] [phone] Aaron Pisano MD 230 [place] [address] documented as of this encounter Goals Goal [...] of this encounter Care Teams Director Of Radio Services Relationship Specialty Start Date End Date Aaron Pisano MD 230 [place] [address] PCP - General Internal Medicine 05/10/14 Antonietta Lim Body TrimmerManaging Cognitive Engineer 09/18/24 documented as of this encounter
--- OUTSIDE RECORDS SUMMARY | 2025-07-02 15:33 | XMS_ITS | Encounter Summary ---
Author Organization [employer] Address [address] [facility] 7t [place] [address] Care Team Providers Care Generalist Name Role Phone Aaron Pisano MD Primary Care Provide r Reason for Visit * Reason Comments Med Refill Encounter Details Date Type Department Care Team ([facility] st Contact Info) Description 03/05/2025 Refill [facility] 230 [place] [address] Aaron Pisano MD 230 [place] [address] Chronic midline low back pain without sciatica [...] the past 12 months, has t he [employer], gas, oil or water company threatened to [...] Info) Description 07/29/2025 2:00 PM EST Telemedicine [facility] 505 [place] [address] Altagracia Mancilla, GRACIELA 505 [place] [address] 08/29/2025 12:45 PM EST Office Visit [facility] ADULT DENTAL 230 [place] [address] Zhanna Hernandez 10/03/2025 10:00 AM EST Office Visit [facility] MEDICINE 230 [place] [address] Aaron Pisano MD 230 [place] [address] documented as of this encounter Goals Goal [...] documented as of this encounter Care Teams Generalist Relationship Specialty Start Date End Date Aaron Pisano MD 230 [place] [address] PCP - General Internal Medicine 05/10/14 Antonietta Lim Hvac Engineering TechnicianJewelry Setter 09/18/24 documented as of this encounter
--- OUTSIDE RECORDS SUMMARY | 2025-07-02 15:33 | XMS_ITS | Encounter Summary ---
Author Organization [employer] Address [address] [place] [address] [place] [address] Care Team Providers Care Psychologist Developmental Name Role Phone Aaron iPsano MD Primary Care Provide r Reason for Visit * Reason Comments Med Refill Encounter Details Date Type Department Care Team ([facility] Contact Info) Description 03/15/2023 Refill [facility] MED[facility]INE 230 [place] [address] Aaron Pisano MD 230 [place] [address] Smoker Social History Tobacco Use Types Packs/Day [...] Upcoming Encounters Date Type Department Care Team ([facility] Contact Info) Description 07/29/2025 2:00 PM EST Telemedicine [facility] 505 [place] [address] Altagracia Mancilla, RN 505 [place] [address] 08/29/2025 12:45 PM EST Office Visit [facility] ADULT DENTAL 230 [place] [address] Zhanna Hernandez 10/03/2025 10:00 AM EST Office Visit [facility] MED[facility]INE [address] [place] [address] Aaron Pisano MD 230 [place] [address] documented as of this encounter Visit Diagnoses Diagnosis Smoker Tobacco use disorder documented in this encounter Care Teams Psychologist Developmental Relationship Specialty Start Date End Date Aaron Pisano MD 230 [place] [address] PCP - General Internal Medicine 05/10/14 Antonietta Lim Ballpoint Pen Cartridge TesterPrimer Supervisor 09/18/24 documented as of this encounter
--- OUTSIDE RECORDS SUMMARY | 2025-07-02 15:33 | XMS_ITS | Encounter Summary ---
Author Organization [employer] Address [address] [place] [address] 7 [place] [address] Care Team Providers Care Vice President Media Relations Name Role Phone Aaron Pisano MD Primary Care Provide r Reason for Visit * Reason Onset Date Comments Med Refill 08/12/2024 Encounter Details Date Type Department Care Team ([facility] st Contact Info) Description 08/12/2024 Refill [facility] MED[facility]INE 230 [place] [address] Aaron Pisano MD 230 [place] [address] Smoker Social History Tobacco Use Types Packs/Day [...] Info) Description 07/29/2025 2:00 PM EST Telemedicine [facility]EDS 505 [place] [address] Altagracia Mancilla, RN 505 [place] [address] 08/29/2025 12:45 PM EST Office Visit [facility] ADULT DENTAL 230 [place] [address] Zhanna Hernandez 10/03/2025 10:00 AM EST Office Visit [facility] MEDICINE 230 [place] [address] Aaron Pisano MD 230 [place] [address] documented as of this encounter Goals Goal [...] documented as of this encounter Care Teams Vice President Media Relations Relationship Specialty Start Date End Date Aaron Pisano MD [address] [place] [address] PCP - General Internal Medicine 05/10/14 Antonietta Lim Marketing InstructorDoor Closer Mechanic 09/18/24 documented as of this encounter
--- OUTSIDE RECORDS SUMMARY | 2025-07-02 15:33 | XMS_ITS | Encounter Summary ---
Author Organization [employer] Address [address] [place] [address] 7 [place] [address] Care Team Providers Care Senior Test Analyst Name Role Phone Aaron Pisano MD Primary Care Provide r Reason for Visit * Reason Onset Date Comments Med Refill 04/04/2023 Encounter Details Date Type Department Care Team ([facility] st Contact Info) Description 04/04/2023 Telephone [facility] MEDICINE 230 [place] [address] Aaron Pisano MD 230 [place] [address] Med Refill Social History Tobacco Use Types [...] Info) Description 07/29/2025 2:00 PM EST Telemedicine [facility] MED & PEDS 505 [place] [address] Altagracia Mancilla, RN [address] [place] 08/29/2025 12:45 PM EST Office Visit [facility] ADULT DENTAL 230 [place] [address] Zhanna Hernandez 10/03/2025 10:00 AM EST Office Visit [facility] MEDICINE 230 [place], [place] [phone] Aaron Pisano MD 230 [place] [address] documented as of this encounter Goals Goal Patient Goal Type Associated Problems Recent Progress Patient-Stated? Author Blood Pressure < 140/90 Blood Pressure 130/83( 025 3:21 PM EDT) No Giovanna Banks, PharmD documented as of this encounter Visit Diagnoses Not on filedocumented in this encounter Care Teams Senior Test Analyst Relationship Specialty Start Date End Date Aaron Pisano MD 230 [place], [place] [phone] PCP - General Internal Medicine 05/10/14 Antonietta Lim Workers Compensation SpecialistEnvelope Folder 09/18/24 documented as of this encounter
--- OUTSIDE RECORDS SUMMARY | 2025-07-02 15:33 | XMS_ITS | Clinical Summary ---
Author Organization [facility] Address [facility] [place] [address] Care Team Providers Care Wax Pumper Name Role Phone None Primary Care Provider [...] Cancer screening 2017 Covid-19 Vaccine (1 - 2024- season) 2025 Influenza (Flu) vaccine (1 o f 1 - Influenza standard series) 04/08/2025 Insurance MEDICAID MANAGED [place] Care Teams Wax Pumper Relationship Specialty Start Date End Date None None PCP - General 02/10/20
--- OUTSIDE RECORDS SUMMARY | 2025-07-02 15:33 | XMS_ITS | Encounter Summary ---
Author Organization [employer] Address [address] [place] [address] 7 [place] [address] Care Team Providers Care Pipe Production Worker Name Role Phone Aaron Pisano MD Primary Care Provide r Reason for Visit * Reason Onset Date Comments Med Refill 08/24/2022 Encounter Details Date Type Department Care Team ([facility] st Contact Info) Description 08/24/2022 Telephone [facility] MEDICINE [address] [place] [address] Aaron Pisano MD 230 [place] [address] Med Refill Social History Tobacco Use Types [...] Miscellaneous Notes * Telephone Encounter - Jenny Sarah - 08/24/2022 12:08 PM EST Tc from pt requesting med refill on medication oxycodone . documented in this encounter Plan of Treatment Upcoming Encounters Date Type Department Care Team (Late st Contact Info) Description 07/29/2025 2:00 PM EST Telemedicine [facility] MED [facility] PEDS 505 [place] [address] Altagracia Mancilla, RN 505 [place] [address] 08/29/2025 12:45 PM EST Office Visit [facility] ADULT DENTAL 230 [place] [address] Zhanna Hernandez 10/03/2025 10:00 AM EST Office Visit [facility] MEDICINE 230 [place] [address] Aaron Pisano MD 230 [place] [address] documented as of this encounter Visit Diagnoses Not on filedocumented in this encounter Care Teams Pipe Production Worker Relationship Specialty Start Date End Date Aaron Pisano MD 230 [place] [address] PCP - General Internal Medicine 05/10/14 Antonietta Lim Diploma MakerWhipped Topping Finisher 09/18/24 documented as of this encounter
--- OUTSIDE RECORDS SUMMARY | 2025-07-02 15:33 | XMS_ITS | Encounter Summary ---
Author Organization [employer] Address [address] [facility] 7t [place] [address] Care Team Providers Care Corrosion Engineer Name Role Phone Aaron Pisano MD Primary Care Provide r Reason for Visit * Reason Comments Med Refill Encounter Details Date Type Department Care Team ([facility] st Contact Info) Description 04/04/2025 Refill [facility] MEDICINE 230 [place] [address] Aaron Pisano MD 230 [place] [address] Chronic midline low back pain without sciatica [...] the past 12 months, has t he [employer], gas, oil or water company threatened to [...] Info) Description 07/29/2025 2:00 PM EST Telemedicine [facility] MED [facility] PEDS 505 [place] [address] Altagracia Mancilla, GRACIELA 505 [place] [address] 08/29/2025 12:45 PM EST Office Visit [facility] ADULT DENTAL 230 [place] [address] Zhanna Hernandez 10/03/2025 10:00 AM EST Office Visit [facility] MEDICINE 230 [place] [address] Aaron Pisano MD 230 [place] [address] documented as of this encounter Goals Goal [...] documented as of this encounter Care Teams Corrosion Engineer Relationship Specialty Start Date End Date Aaron Pisano MD 230 [place] [address] PCP - General Internal Medicine 05/10/14 Antonietta Lim Production AdministratorFrame Hand 09/18/24 documented as of this encounter
--- OUTSIDE RECORDS SUMMARY | 2025-07-02 15:33 | XMS_ITS | Encounter Summary ---
Author Organization [employer] Address [address] [place] [address] 7 [place] [address] Care Team Providers Care Line Installer Trolley Name Role Phone Aaron Pisano MD Primary Care Provide r Reason for Visit * Reason Onset Date Comments Med Refill 09/14/2022 Encounter Details Date Type Department Care Team (Late st Contact Info) Description 09/14/2022 Telephone [facility] MEDICINE 230 [place] [address] Aaron Pisano MD 230 [place] [address] Med Refill Social History Tobacco Use Types [...] 07/29/2025 2:00 PM EST Telemedicine [facility] MED & PEDS 505 [place] [address] Altagracia Mancilla, RN 505 [place] [address] 08/29/2025 12:45 PM EST Office Visit [facility] ADULT DENTAL 230 [place] [address] Zhanna Hernandez 10/03/2025 10:00 AM EST Office Visit [facility] MEDICINE 230 [place] [address] Aaron Pisano MD 230 [place] [address] documented as of this encounter Visit Diagnoses Not on filedocumented in this encounter Care Teams Line Installer Trolley Relationship Specialty Start Date End Date Aaron Pisano MD [address] [place] [address] PCP - General Internal Medicine 05/10/14 Antonietta Lim Candle PourerBrazing Furnace Feeder 09/18/24 documented as of this encounter
--- OUTSIDE RECORDS SUMMARY | 2025-07-02 15:33 | XMS_ITS | Encounter Summary ---
Author Organization [employer] Address [address] [facility] 7 [place] [address] Care Team Providers Care Director Process Engineering Name Role Phone Aaron Pisano MD Primary Care Provide r Reason for Visit * Reason Comments Med Refill Encounter Details Date Type Department Care Team ([facility] st Contact Info) Description 05/07/2024 Refill [facility] MEDICINE 230 [place] [address] Aaron Pisano MD [address] [place] [address] Chronic midline low back pain without sciatica [...] Info) Description 07/29/2025 2:00 PM EST Telemedicine [facility] MED & PEDS 505 [place] [address] Altagracia Mancilla RN 505 [place] [address] 08/29/2025 12:45 PM EST Office Visit [facility] ADULT DENTAL [address] [place] [address] Zhanna Hernandez 10/03/2025 10:00 AM EST Office Visit [facility] MEDICINE 230 [place] [address] Aaron Pisano MD [address] [place] [address] documented as of this encounter Goals Goal [...] as of this encounter Care Teams Director Process Engineering Relationship Specialty Start Date End Date Aaron Pisano MD 230 [place] [address] PCP - General Internal Medicine 05/10/14 Antonietta Lim Branch Office ManagerDoweler 09/18/24 documented as of this encounter
--- OUTSIDE RECORDS SUMMARY | 2025-07-02 15:33 | XMS_ITS | Encounter Summary ---
Author Organization [employer] Address [address] [facility] 7 [place] [address] Care Team Providers Care Professor Sculpture Name Role Phone Aaron Pisano MD Primary Care Provide r Reason for Visit * Reason Onset Date Comments Med Refill 04/03/2025 Encounter Details Date Type Department Care Team ([facility] Contact Info) Description 04/03/2025 Telephone [facility] MEDICINE [address] [place] [address] Aaron Pisano MD 230 [place] [address] Med Refill Social History Tobacco Use Types [...] the past 12 months, has t he [employer], gas, oil or water company threatened to [...] immediate release tablet To be sent to: [facility] - [place], [place] - [address] [facility] documented in this encounter Plan of Treatment Upcoming Encounters Date Type Department Care Team (Late st Contact Info) Description 07/29/2025 2:00 PM EST Telemedicine [facility] MED [facility] PEDS 505 [place] [address] Altagracia Mancilla, GRACIELA 505 [place] [address] 08/29/2025 12:45 PM EST Office Visit [facility] ADULT DENTAL [address] [place] [address] Zhanna Hernandez 10/03/2025 10:00 AM EST Office Visit [facility] MEDICINE [address] [place], [place] [phone] Aaron Pisano MD 230 [place] [address] documented as of this encounter Goals Goal [...] documented as of this encounter Care Teams Professor Sculpture Relationship Specialty Start Date End Date Aaron Pisano MD 230 [place] [address] PCP - General Internal Medicine 05/10/14 Antonietta Lim Front End Software DeveloperSalvage Determiner 09/18/24 documented as of this encounter
--- OUTSIDE RECORDS SUMMARY | 2025-07-02 15:33 | XMS_ITS | Encounter Summary ---
Author Organization [employer] Address [address] [facility] 7 [place] [address] Care Team Providers Care Revenue Audit Clerk Name Role Phone Aaron Pisano MD Primary Care Provide r Reason for Visit * Reason Onset Date Comments Med Refill 04/02/2025 Encounter Details Date Type Department Care Team ([facility] st Contact Info) Description 04/02/2025 Refill [facility] MED[facility]INE 230 [place] [address] Aaron Pisano MD 230 [place] [address] Social History Tobacco Use Types Packs/Day Years [...] the past 12 months, has t he [employer], gas, oil or water company threatened to [...] Info) Description 07/29/2025 2:00 PM EST Telemedicine [facility]S 505 [place] [address] Altagracia Mancilla, GRACIELA 505 [place] [address] 08/29/2025 12:45 PM EST Office Visit [facility] ADULT DENTAL 230 [place] [address] Zhanna Hernandez 10/03/2025 10:00 AM EST Office Visit [facility] MED[facility]INE [address] [place] [address] Aaron Pisano MD 230 [place] [address] documented as of this encounter Goals Goal [...] documented as of this encounter Care Teams Revenue Audit Clerk Relationship Specialty Start Date End Date Aaron Pisano MD [address] [place] [address] PCP - General Internal Medicine 05/10/14 Antonietta Lim Folding Machine TenderCourt Administrator 09/18/24 documented as of this encounter
--- OUTSIDE RECORDS SUMMARY | 2025-07-02 15:33 | XMS_ITS | Encounter Summary ---
Author Organization [employer] Address [address] [facility] 7 [place] [address] Care Team Providers Care Test Engineering Technician Name Role Phone Aaron Pisano MD Primary Care Provide r Reason for Visit * Reason Comments Med Refill Encounter Details Date Type Department Care Team ([facility] st Contact Info) Description 10/06/2023 Refill [facility] MEDICINE 230 [place] [address] Aaron Pisano MD 230 [place] [address] Chronic midline low back pain without sciatica [...] Info) Description 07/29/2025 2:00 PM EST Telemedicine [facility] MED & PEDS 505 [place] [address] Altagracia Mancilla RN 505 [place] [address] 08/29/2025 12:45 PM EST Office Visit [facility] ADULT DENTAL [address] [place] [address] Zhanna Hernandez 10/03/2025 10:00 AM EST Office Visit [facility] MEDICINE 230 [place] [address] Aaron Pisano MD [address] [place] [address] documented as of this encounter Goals Goal [...] documented as of this encounter Care Teams Test Engineering Technician Relationship Specialty Start Date End Date Aaron Pisano MD 230 [place] [address] PCP - General Internal Medicine 05/10/14 Antonietta Lim Deck MateBuffing And Polishing Wheel Repairer 09/18/24 documented as of this encounter
--- OUTSIDE RECORDS SUMMARY | 2025-07-02 15:33 | XMS_ITS | Encounter Summary ---
Author Organization [employer] Address [address] [place] [address] 7 [place] [address] Care Team Providers Care Portable Power Tool Repairer Name Role Phone Aaron Pisano MD Primary Care Provide r Reason for Visit * Reason Onset Date Comments Nurse Triage 02/21/2023 Encounter Details Date Type Department Care Team ([facility] st Contact Info) Description 02/21/2023 Telephone [facility] MEDICINE [address] [place] [address] Aaron Pisano MD [address] [place] [address] Nurse Triage Social History Tobacco Use Types [...] 4:45 PM EDT Please assist with obtaining [facility] ED discharge notes for 02/10/23. This telegraphic typewriter repairer does not have HeyLets access. Pt sent to ER after visit with [facility]. * Telephone Encounter - Leora Campbell RN - 02/21/2023 4:39 PM EDT Call to Zee Villanueva , reports having vomiting since seen at [facility] ER. Per pt was given abx for UTI and zofran. Per pt completed abx. Per pt continues to have vomiting. 5 episodes of vomiting in last 24 hours. No blood or green bile in vomit. Pt still taking chantix. Pt offered WIC tomorrow. Pt declines needs appt 3 days out for PT1. Agrees to visit with blue team provider. Reviewed home care advise and reasons to call back. Future Appointments Date Time Provider Department Center 02/25/2023 9:30 AM DUY Taveras MEDICINE [facility] 03/21/2023 1:00 PM Giovanna Payne PharmD MEDICINE [facility] 04/27/2023 3:00 PM Aniya Anderson RN MEDICINE [facility] Multiple (2) protocols were used on this [...] become worse * Telephone Encounter - Natasha Rodriguez Jain - 02/21/2023 4:33 PM EDT Symptom: Vomiting Outcome: Schedule an urgent appointment (within 4 hours) or talk to a nurse or provider soon Reason: Vomited at least once in the past 8 hours The caller accepted this outcome Please contact pt at [phone] Pt was at [facility] hospital on 02/10/2023 for same symptoms. documented in this encounter Plan of Treatment Upcoming Encounters Date Type Department Care Team (Late st Contact Info) Description 07/29/2025 2:00 PM EST Telemedicine [facility] CHC MED & PEDS 505 [place] [address] Altagracia Mancilla RN 505 [place] [address] 08/29/2025 12:45 PM EST Office Visit [facility] ADULT DENTAL 230 [place] [address] Zhanna Hernandez 10/03/2025 10:00 AM EST Office Visit [facility] MEDICINE [address] [place] [address] Aaron Pisano MD [address] [place] [address] documented as of this encounter Visit Diagnoses Not on filedocumented in this encounter Care Teams Portable Power Tool Repairer Relationship Specialty Start Date End Date Aaron Pisano MD [address] [place] [address] PCP - General Internal Medicine 05/10/14 Antonietta Lim Forest Fire OfficerAircraft Fuselage Framer 09/18/24 documented as of this encounter
--- OUTSIDE RECORDS SUMMARY | 2025-07-02 15:33 | XMS_ITS | Encounter Summary ---
Author Organization [employer] Address [address] [place] [address] 7 [place] [address] Care Team Providers Care Cell Preparer Name Role Phone Aaron Pisano MD Primary Care Provide r Reason for Visit * Reason Onset Date Comments Med Refill 08/02/2024 Encounter Details Date Type Department Care Team ([facility] Contact Info) Description 08/02/2024 Telephone [facility] MEDICINE [address] [place] [address] Aaron Pisano MD 230 [place] [address] Med Refill Social History Tobacco Use Types [...] the past 12 months, has t he Voice Of TV, gas, oil or water company threatened to [...] Info) Description 07/29/2025 2:00 PM EST Telemedicine [facility] CHC MED & PEDS 505 [place] [address] Altagracia Mancilla RN 505 [place] [address] 08/29/2025 12:45 PM EST Office Visit [facility] ADULT DENTAL [address] [place] [address] Zhanna Hernandez 10/03/2025 10:00 AM EST Office Visit [facility] MEDICINE [address] [place] [address] Aaron Pisano MD [address] [place] [address] documented as of this encounter Goals Goal [...] documented as of this encounter Care Teams Cell Preparer Relationship Specialty Start Date End Date Aaron iPsano MD [address] [place] [address] PCP - General Internal Medicine 05/10/14 Antonietta Lim BroadcasterFertilizer Applicator 09/18/24 documented as of this encounter
--- OUTSIDE RECORDS SUMMARY | 2025-07-02 15:33 | XMS_ITS | Encounter Summary ---
Author Organization [employer] Address [address] [place] [address] 7 [place] [address] Care Team Providers Care Bee Robber Name Role Phone Aaron Pisano MD Primary Care Provide r Reason for Visit * Reason Onset Date Comments Med Refill 11/16/2022 Encounter Details Date Type Department Care Team ([facility] st Contact Info) Description 11/16/2022 Telephone [facility] MEDICINE [address] [place] [address] Aaron Pisano MD 230 [place] [address] Med Refill Social History Tobacco Use Types [...] med refill status Please contact pt at [phone] * Telephone Encounter - Natasha Jain - 11/30/2022 1:14 PM EDT Tc from pt requesting medication status. Please contact pt at [phone] * Telephone Encounter - Jenny Smith - 11/16/2022 4:36 PM EDT Tc from pt requesting med refill for medication oxyCODONE (Roxicodone) 5 MG immediate release tablet. documented in this encounter Plan of Treatment Upcoming Encounters Date Type Department Care Team (Late st Contact Info) Description 07/29/2025 2:00 PM EST Telemedicine [facility] CHC MED & PEDS 505 [place] [address] Altagracia Mancilla, RN 505 [place] [address] 08/29/2025 12:45 PM EST Office Visit [facility] ADULT DENTAL [address] [place] [address] Zhanna Hernandez 10/03/2025 10:00 AM EST Office Visit [facility] MEDICINE 230 [place] [address] Aaron Pisano MD [address] [place] [address] documented as of this encounter Visit Diagnoses Not on filedocumented in this encounter Care Teams Bee Robber Relationship Specialty Start Date End Date Aaron Pisano MD [address] [place] [address] PCP - General Internal Medicine 05/10/14 Antonietta Lim Director Of District OfficeSupervisor Denture Department 09/18/24 documented as of this encounter
--- OUTSIDE RECORDS SUMMARY | 2025-07-02 15:33 | XMS_ITS | Encounter Summary ---
Author Organization [employer] Address [address] [place] [address] 7 [place] [address] Care Team Providers Care Hand Bulldozer Name Role Phone Aaron Pisano MD Primary Care Provide r Reason for Visit * Reason Onset Date Comments Med Refill 08/12/2024 Encounter Details Date Type Department Care Team ([facility] st Contact Info) Description 08/12/2024 Refill [facility] MEDICINE 230 [place] [address] Aaron Pisano MD 230 [place] [address] Social History Tobacco Use Types Packs/Day Years [...] Info) Description 07/29/2025 2:00 PM EST Telemedicine [facility] CHC MED & PEDS 505 [place] [address] Altagracia Mancilla, RN 505 [place] [address] 08/29/2025 12:45 PM EST Office Visit [facility] ADULT DENTAL 230 [place] [address] Zhanna Hernandez 10/03/2025 10:00 AM EST Office Visit [facility] MEDICINE 230 [place] [address] Aaron Pisano MD [address] [place] [address] documented as of this encounter Goals Goal [...] documented as of this encounter Care Teams Hand Bulldozer Relationship Specialty Start Date End Date Aaron Pisano MD [address] [place] [address] PCP - General Internal Medicine 05/10/14 Antonietta Lim Compensation AssociateIndustrial Design Engineer 09/18/24 documented as of this encounter
--- OUTSIDE RECORDS SUMMARY | 2025-07-02 15:33 | XMS_ITS | Encounter Summary ---
Author Organization [employer] Address [address] [facility] 7 [place] [address] Care Team Providers Care Gang Punch Operator Name Role Phone Aaron Pisano MD Primary Care Provide r Reason for Visit * Reason Onset Date Comments Med Refill 03/05/2025 Encounter Details Date Type Department Care Team ([facility] st Contact Info) Description 03/05/2025 Refill [facility] MEDICINE 230 [place] [address] Aaron Pisano MD 230 [place] [address] Chronic midline low back pain without sciatica [...] Info) Description 07/29/2025 2:00 PM EST Telemedicine [facility] CHC MED & PEDS 505 [place] [address] Altagracia Mancilla, RN 505 [place] [address] 08/29/2025 12:45 PM EST Office Visit [facility] ADULT DENTAL 230 [place] [address] Zhanna Hernandez 10/03/2025 10:00 AM EST Office Visit [facility] MEDICINE 230 [place], [place] [phone] Aaron Pisano MD 230 [place] [address] documented as of this encounter Goals Goal [...] documented as of this encounter Care Teams Gang Punch Operator Relationship Specialty Start Date End Date Aaron Pisano MD [address] [place] [address] PCP - General Internal Medicine 05/10/14 Antonietta Lim Transition Of Care SpecialistCostume Technician 09/18/24 documented as of this encounter
--- OUTSIDE RECORDS SUMMARY | 2025-07-02 15:33 | XMS_ITS | Encounter Summary ---
Author Organization [employer] Address [address] [place] [address] 7 [place] [address] Care Team Providers Care Fly Worker Name Role Phone Aaron Pisano MD Primary Care Provide r Encounter Details Date Type Department Care Team (Latest Contact Info) Description 07/16/2019 Abstract [facility] CONVERSIONS Dental, Provider, DDS Social History [...] Upcoming Encounters Date Type Department Care Team ( st Contact Info) Description 07/29/2025 2:00 PM EST Telemedicine [facility] CHC MED & PEDS 505 [place] [address] Altagracia Mancilla, GRACIELA 505 [place] [address] 08/29/2025 12:45 PM EST Office Visit [facility] ADULT DENTAL [address] [place] [address] Zhanna Hernandez 10/03/2025 10:00 AM EST Office Visit [facility] MEDICINE [address] [place] [address] Aaron Pisano MD [address] [place] [address] documented as of this encounter Visit Diagnoses Not on filedocumented in this encounter Care Teams Fly Worker Relationship Specialty Start Date End Date Aaron Pisano MD [address] [place] [address] PCP - General Internal Medicine 05/10/14 Antonietta Lim Picking Machine Operator HelperHorse Stud Worker 09/18/24 documented as of this encounter
--- OUTSIDE RECORDS SUMMARY | 2025-07-02 15:33 | XMS_ITS | Encounter Summary ---
Author Organization [employer] Address 75 [facility] 7t [place] [address] Care Team Providers Care Automotive Buyer Name Role Phone Aaron Pisano MD Primary Care Provide r Reason for Visit * Reason Onset Date Comments Med Refill 06/01/2023 Encounter Details Date Type Department Care Team (Late st Contact Info) Description 06/01/[address] [facility] CHC MED & PEDS [address] [place] [address] Sumi Vang, ANP 230 [place] [address] Chronic midline low back pain without sciatica [...] with others, in a hotel, in a half-way, living outside on the street, on a [...] Info) Description 07/29/2025 2:00 PM EST Telemedicine [facility] MED & PEDS 505 [place] [address] Altagracia Mancilla, RN 505 [place] [address] 08/29/2025 12:45 PM EST Office Visit [facility] ADULT DENTAL 230 [place] [address] Zhanna Hernandez 10/03/2025 10:00 AM EST Office Visit [facility] MEDICINE 230 [place] [address] Aaron Pisano MD 230 [place] [address] documented as of this encounter Goals Goal Patient Goal Type Associated Problems Recent Progress Patient-Stated? Author Blood Pressure < 140/90 Blood Pressure 130/83( 025 3:21 PM EDT) No Giovanna Banks, PharmD documented as of this encounter Visit Diagnoses Diagnosis Chronic midline low back pain without sciatica documented in this encounter Care Teams Automotive Buyer Relationship Specialty Start Date End Date Aaron Pisano MD [address] [place] [address] PCP - General Internal Medicine 05/10/14 Antonietta Lim Lap Machine OperatorCollision Center Manager 09/18/24 documented as of this encounter
--- OUTSIDE RECORDS SUMMARY | 2025-07-02 15:33 | XMS_ITS | Encounter Summary ---
Author Organization [employer] Address 75 [facility] 7 [place] [address] Care Team Providers Care Chemist Instrumentation Name Role Phone Aaron Pisano MD Primary Care Provide r Reason for Visit * Reason Comments Med Refill Encounter Details Date Type Department Care Team ([facility] st Contact Info) Description 01/30/2024 Refill [facility] MEDICINE 230 [place] [address] Aaron Pisano MD 230 [place] [address] Chronic midline low back pain without sciatica [...] Description 07/29/2025 2:00 PM EST Telemedicine [facility] CHC MED & PEDS 505 [place] [address] Altagracia Mancilla RN 505 [place] [address] 08/29/2025 12:45 PM EST Office Visit [facility] ADULT DENTAL [address] [place] [address] Zhanna Hernandez 10/03/2025 10:00 AM EST Office Visit [facility] MEDICINE 230 [place] [address] Aaron Pisano MD [address] [place] [address] documented as of this encounter Goals Goal [...] documented as of this encounter Care Teams Chemist Instrumentation Relationship Specialty Start Date End Date Aaron Pisano MD 230 [place] [address] PCP - General Internal Medicine 05/10/14 Antonietta Lim Pyrotechnics Press TenderGlass Technologist 09/18/24 documented as of this encounter
--- OUTSIDE RECORDS SUMMARY | 2025-07-02 15:33 | XMS_ITS | Encounter Summary ---
Author Organization [employer] Address [address] [place] [address] 7 [place] [address] Care Team Providers Care Sustainability Coach Name Role Phone Aaron Pisano MD Primary Care Provide r Reason for Visit * Reason Onset Date Comments Med Refill 11/16/2022 Encounter Details Date Type Department Care Team ([facility] st Contact Info) Description 11/16/2022 Telephone [facility] MEDICINE [address] [place] [address] Aaron Pisano MD 230 [place] [address] Med Refill Social History Tobacco Use Types [...] Miscellaneous Notes * Telephone Encounter - Natasha Galavizbart Jain - 11/16/2022 1:31 PM EDT Tc from pt requesting for script of oxyCODONE (Roxicodone) 5 MG immediate release tablet Please sent to [facility] [place], [place] - [address] [place] [address] documented in this encounter Plan of Treatment Upcoming Encounters Date Type Department Care Team (Late st Contact Info) Description 07/29/2025 2:00 PM EST Telemedicine [facility] CHC MED & PEDS 505 [place] [address] Altagracia Mancilla, RN 505 [place] [address] 08/29/2025 12:45 PM EST Office Visit [facility] ADULT DENTAL 230 [place] [address] Zhanna Hernandez 10/03/2025 10:00 AM EST Office Visit [facility] MEDICINE 230 [place] [address] Aaron Pisano MD 230 [place] [address] documented as of this encounter Visit Diagnoses Not on filedocumented in this encounter Care Teams Sustainability Coach Relationship Specialty Start Date End Date Aaron Pisano MD 230 [place] [address] PCP - General Internal Medicine 05/10/14 Antonietta Lim Hand WinderHospital Education Coordinator 09/18/24 documented as of this encounter
--- OUTSIDE RECORDS SUMMARY | 2025-07-02 15:33 | XMS_ITS | Encounter Summary ---
Author Organization [employer] Address [address] [place] [address] 7 [place] [address] Care Team Providers Care Graphic Editor Name Role Phone Aaron Pisano MD Primary Care Provide r Encounter Details Date Type Department Care Team (Latest Contact Info) Description 11/10/2020 Abstract [facility] CONVERSIONS Dental, Provider, DDS Social History [...] Info) Description 07/29/2025 2:00 PM EST Telemedicine [facility] CHC MED & PEDS 505 [place] [address] Altagracia Mancilla, GRACIELA 505 [place] [address] 08/29/2025 12:45 PM EST Office Visit [facility] ADULT DENTAL [address] [place] [address] Zhanna Hernandez 10/03/2025 10:00 AM EST Office Visit [facility] MEDICINE 230 [place] [address] Aaron Pisano MD [address] [place] [address] documented as of this encounter Visit Diagnoses Not on filedocumented in this encounter Care Teams Graphic Editor Relationship Specialty Start Date End Date Aaron Pisano MD [address] [place] [address] PCP - General Internal Medicine 05/10/14 Antonietta Lim Infectious Waste TechnicianBusiness Intelligence Developer 09/18/24 documented as of this encounter
--- OUTSIDE RECORDS SUMMARY | 2025-07-02 15:33 | XMS_ITS | Encounter Summary ---
Author Organization [employer] Address 75 [facility] 7t [place] [address] Care Team Providers Care Roll Tender Name Role Phone Aaron Pisano MD Primary Care Provide r Reason for Visit * Reason Comments Med Refill Encounter Details Date Type Department Care Team (Late Contact Info) Description 02/18/2023 Refill [facility] MEDICINE 230 [place] [address] Aaron Pisano MD 230 [place] [address] Social History Tobacco Use Types Packs/Day Years [...] [facility] Contact Info) Description 07/29/2025 2:00 PM EST Telemedicine [facility] CHC MED & PEDS 505 [place] [address] Altagracia Mancilla, RN 505 [place] [address] 08/29/2025 12:45 PM EST Office Visit [facility] ADULT DENTAL 230 [place] [address] Zhanna Hernandez 10/03/2025 10:00 AM EST Office Visit [facility] MEDICINE 230 [place] [address] Aaron Pisano MD [address] [place] [address] documented as of this encounter Visit Diagnoses Not on filedocumented in this encounter Care Teams Roll Tender Relationship Specialty Start Date End Date Aaron Pisano MD [address] [place] [phone] PCP - General Internal Medicine 05/10/14 Antonietta Lim Manual WinderPolytechnic Teacher 09/18/24 documented as of this encounter
--- OUTSIDE RECORDS SUMMARY | 2025-07-02 15:33 | XMS_ITS | Encounter Summary ---
Author Organization [employer] Address [address] [place] [address] 7 [place] [address] Care Team Providers Care Molder Automobile Carpets Name Role Phone Aaron Pisano MD Primary Care Provide r Reason for Visit * Reason Onset Date Comments Med Refill 11/07/2024 Encounter Details Date Type Department Care Team (Late st Contact Info) Description 11/07/2024 Refill [facility] MEDICINE 230 [place] [address] Aaron Pisano MD 230 [place] [address] Chronic midline low back pain without sciatica; [...] Description 07/29/2025 2:00 PM EST Telemedicine [facility] CHC MED & PEDS 505 [place] [address] Altagracia Mancilla, RN 505 [place] [address] 08/29/2025 12:45 PM EST Office Visit [facility] ADULT DENTAL 230 [place] [address] Zhanna Hernandez 10/03/2025 10:00 AM EST Office Visit [facility] MEDICINE 230 [place] [address] Aaron Pisano MD 230 [place] [address] documented as of this encounter Goals Goal [...] documented as of this encounter Care Teams Molder Automobile Carpets Relationship Specialty Start Date End Date Aaron Pisano MD [address] [place] [address] PCP - General Internal Medicine 05/10/14 Antonietta Lim Schedule AnnouncerReal Estate Recruiter 09/18/24 documented as of this encounter
--- OUTSIDE RECORDS SUMMARY | 2025-07-02 15:33 | XMS_ITS | Encounter Summary ---
Author Organization [employer] Address [address] [place] [address] Care Team Providers Care Practical Nurse Clinical Coordinator Name Role Phone Aaron Pisano MD Primary Care Provide r Reason for Visit * Reason Comments Med Refill Encounter Details Date Type Department Care Team (Late Contact Info) Description 04/18/2023 Refill [facility] MEDICINE 230 [place] [address] Aaron Pisano MD 230 [place] [address] Chronic bilateral low back pain without sciatica [...] Department Care Team (Late Contact Info) Description 07/29/2025 2:00 PM EST Telemedicine [facility] CHC MED & PEDS 505 [place] [address] Altagracia Mancilla, GRACIELA 505 [place] [address] 08/29/2025 12:45 PM EST Office Visit [facility] ADULT DENTAL [address] [place] [address] Zhanna Hernandez 10/03/2025 10:00 AM EST Office Visit [facility] MEDICINE 230 [place], [place] [phone] Aaron Pisano MD 230 [place], [place] [phone] documented as of this encounter Goals Goal Patient Goal Type Associated Problems Recent Progress Patient-Stated? Author Blood Pressure < 140/90 Blood Pressure 130/83( 025 3:21 PM EDT) Giovanna Edwards, PharmD documented as of this encounter Visit Diagnoses Diagnosis Chronic bilateral low back pain without sciatica documented in this encounter Care Teams Practical Nurse Clinical Coordinator Relationship Specialty Start Date End Date Aaron Pisano MD [address] [place] [address] PCP - General Internal Medicine 05/10/14 Antonietta Lim Lock AssemblerAssistant Cross Country Coach 09/18/24 documented as of this encounter
--- OUTSIDE RECORDS SUMMARY | 2025-07-02 15:34 | XMS_ITS | Encounter Summary ---
Author Organization [employer] Address [address] [facility] 7 [place] [address] Care Team Providers Care Picture Frame Maker Name Role Phone Aaron Pisano MD Primary Care Provide r Reason for Visit * Reason Comments Med Refill Encounter Details Date Type Department Care Team ([facility] st Contact Info) Description 08/09/2023 Refill [facility] MEDICINE 230 [place] [address] Sumi Vang, ANP 230 [place] [address] Chronic midline low back pain without sciatica [...] with others, in a hotel, in a detention, living outside on the street, on a [...] Info) Description 07/29/2025 2:00 PM EST Telemedicine [facility] CHC MED & PEDS 505 [place] [address] Altagracia Mancilla RN 505 [place] [address] 08/29/2025 12:45 PM EST Office Visit [facility] ADULT DENTAL 230 [place] [address] Zhanna Hernandez 10/03/2025 10:00 AM EST Office Visit [facility] MEDICINE [address] [place] [address] Aaron Pisano MD 230 [place] [address] documented as of this encounter Goals Goal Patient Goal Type Associated Problems Recent Progress Patient-Stated? Author Blood Pressure < 140/90 Blood Pressure 130/83( 025 3:21 PM EDT) No Giovanna Banks, PharmD documented as of this encounter Visit Diagnoses Diagnosis Chronic midline low back pain without sciatica documented in this encounter Care Teams Picture Frame Maker Relationship Specialty Start Date End Date Aaron Pisano MD 230 [place] [address] PCP - General Internal Medicine 05/10/14 Antonietta Lim Detail DrafterHull Inspector 09/18/24 documented as of this encounter
--- OUTSIDE RECORDS SUMMARY | 2025-07-02 15:34 | XMS_ITS | Encounter Summary ---
Author Organization [employer] Address [address] [place] [address] Care Team Providers Care Shoe Stainer Name Role Phone Aaron Pisano MD Primary Care Provide r Reason for Visit * Reason Onset Date Comments Pt-1 05/24/2025 Encounter Details Date Type Department Care Team ([facility] Contact Info) Description 05/24/2025 Telephone [facility] MEDIC[facility] [address] [place] [address] Aaron Pisano MD [address] [place] [address] Pt-1 Social History Tobacco Use Types Packs/Day [...] Y/N: Yes Provider name or facility name: [facility] Infectious [facility] Facility Address: [address] [place] [address] Escort needed: Y/N: No Do you have a wheelchair: Y/N: No If yes- Manual or electric: N/A Visits: Once a month documented in this encounter Plan of Treatment Upcoming Encounters Date Type Department Care Team (Late st Contact Info) Description 07/29/2025 2:00 PM EST Telemedicine [facility] & PEDS [address] [place] [address] Altagracia Mancilla, GRACIELA [address] [place] [address] 08/29/2025 12:45 PM EST Office Visit [facility] ADULT DENTAL [address] [place], [place] [phone] Zhanna Hernandez 10/03/2025 10:00 AM EST Office Visit [facility] [address] [facility] [place], [place] [phone] Aaron Pisano MD [address] [place], [place] [phone] documented as of this encounter Goals Goal [...] documented as of this encounter Care Teams Shoe Stainer Relationship Specialty Start Date End Date Aaron Pisano MD [address] [place], [place] [phone] PCP - General Internal Medicine 05/10/14 Antonietta Lim Dye Beck Reel OperatorBilling Customer Service Representative 09/18/24 documented as of this encounter
--- OUTSIDE RECORDS SUMMARY | 2025-07-02 15:34 | XMS_ITS | Clinical Summary ---
Author Organization [employer] Address [address] [place] [address] [address] [place] [address] Care Team Providers Care Taper Operator Name Role Phone Aaron Pisano MD [...] MILD PAIN 60 tablet 08/13/19 25 Active polyvinyl alcohol (Liquifilm Tears) 1.4 % ophthalmic solutionIndic ations:Episcl eritis, left Administer 1 drop into both eyes if needed for dry eyes. 15 mL 1 12/01/19 25 Active furosemide (Lasix) 40 MG tabletIndicat [...] MORNING 90 tablet 1 04/11/20 25 Active loperamide (Anti-Diarrhe al) 2 MG tabletIndicat ions:Diarrhea in adult patient TAKE 2 TABLETS BY MOUTH TODAY THEN TAKE 1 TABLET AFTER EACH WATERY STOOL. NO MORE THAN 8 TABLETS PER 24 HOURS 7 tablet 05/02/20 25 Active ondansetron (Zofran) 4 MG tablet [...] or split. 30 tablet 05/24/20 25 Active esomeprazole (NexIUM) [address] capsuleIndica tions:Cough in adult patient Take 1 capsule (40 mg) by mouth 2 times daily. 60 capsule 2 06/04/20 25 Active cetirizine (ZyrTEC) 10 MG tabletIndicat ions:Seasonal allergies TAKE 1 TABLET BY MOUTH EVERY MORNING 90 tablet 1 06/20/20 25 Active baclofen (Lioresal) 10 MG tabletIndicat ions:Chronic bilateral low back pain without sciatica TAKE 1 TABLET BY MOUTH TWICE DAILY IN THE MORNING AND IN THE EVENING NEEDED FOR MUSCLE SPASMS 60 tablet 1 07/02/20 25 Active diphenhydrAMI NE (Laureen-Dryl) 25 MG tabletIndicat ions:Intracta ble vomiting with nausea TAKE 1 TABLET BY MOUTH THREE TIMES DAILY BEFORE FOOD NEEDED FOR NAUSEA AND VOMITING 90 tablet 1 07/02/20 25 Active oxyCODONE (Roxicodone) 5 MG immediate release tabletIndicat ions:Chronic midline low back pain without sciatica Take 1 tablet (5 mg) by mouth every 12 (twelve) hours if needed for severe pain. 56 tablet 07/02/20 25 Active esomeprazole (NexIUM) [address] capsuleIndica tions:Cough in adult patient TAKE 1 CAPSULE BY MOUTH TWICE DAILY IN THE MORNING AND IN THE EVENING 60 capsule 2 11/21/19 25 025 Discontinued(R eorder (will not trigger notification to Pharmacy)) cetirizine (ZyrTEC) 10 MG tabletIndicat ions:Seasonal allergies TAKE 1 TABLET BY MOUTH EVERY MORNING 90 tablet 1 12/26/19 25 025 Discontinued baclofen (Lioresal) 10 MG tabletIndicat ions:Chronic bilateral low back pain without sciatica TAKE 1 TABLET BY MOUTH TWICE DAILY IN THE MORNING AND IN THE EVENING NEEDED FOR MUSCLE SPASMS 60 tablet 1 04/23/20 25 025 Discontinued(R eorder (will not trigger notification to Pharmacy)) diphenhydrAMI NE (Laureen-Dryl) 25 MG tabletIndicat ions:Intracta ble vomiting with nausea TAKE 1 TABLET BY MOUTH THREE TIMES DAILY BEFORE FOOD NEEDED FOR NAUSEA AND VOMITING 90 tablet 1 04/23/20 25 025 Discontinued(R eorder (will not trigger notification to Pharmacy)) oxyCODONE (Roxicodone) 5 MG immediate release tabletIndicat ions:Chronic midline low back pain without sciatica TAKE 1 TABLET BY MOUTH EVERY TWELVE HOURS NEEDED FOR SEVERE PAIN 56 tablet 05/03/20 25 025 Discontinued oxyCODONE (Roxicodone) 5 MG immediate release tabletIndicat ions:Chronic midline low back pain without sciatica TAKE 1 TABLET BY MOUTH EVERY TWELVE HOURS NEEDED FOR SEVERE PAIN 56 tablet 06/04/20 25 025 Discontinued(R eorder (will not trigger [...] withdrawal. Use nicotine gum prn, continue chantix Chronic midline low back pain without sciatica 0 03/22/2023 Assessment & Plan (07/02/2025 9:20 AM EST): Televisit Pt with c/o persistent chronic low [...] 5 mg po BID Assessment & Plan (01/05/2024 3:01 PM EDT): [...] compliance, counseled about weight loss. 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 She is under the care of Blast Furnace Checker Dr. Reagan Alfaro last note [id number] He recommended to: Monitor given that There is no serological evidence of systemic vasculitis. If she has a recurrence within the next year I think it would warrant immunosuppressive treatment at that time. 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 She is under the care of Blast Furnace Checker Dr Newberry. She is on Prednisone 2 [...] psychotherapist and a psychiatrist Dr. Gregory. At [facility] Pt is on: Hydroxyzine, Ambien, Assessment & Plan (08/23/2023 2:06 PM EST): Pt under the care of a psychotherapist and a psychiatrist. At [facility] Pt is no longer on Abilify nor Clonidine. She is now on Geodon Assessment & Plan (08/03/2022 9:22 AM EST): Pt under the care of a psychotherapist and a psychiatrist. At [facility] started on Abilify 7.5 mg po [...] recently seen by Dr Rodas at [facility] 06/15/2024 who recommended PRN follow up [...] low back pain 05/28/2014 Assessment & Plan (07/02/2025 9:17 AM EST): Televisit Pt with c/o persistent chronic low back pain , not improving, intensity / Previous work up included: MRI of her [...] 5 mg po BID Assessment & Plan (03/23/2023 12:18 PM EDT): [...] Severe obesity (CMS/HCC) 07/12/2013 Assessment & Plan (07/02/2025 9:21 AM EST): Previously referred to [facility] Comprehensive weight management program. Seen twice, they prompter to discuss with her mental health provider her eating habits before they would consider accepting her into the program. Pt would like to discuss GLP1s for weight loss next time she comes in Assessment & Plan (08/23/2023 1:51 PM EST): Previously referred to [facility] Comprehensive weight management program. Seen twice, they prompter to discuss with her mental health provider her eating habits before they would consider accepting her into the program Assessment & Plan (12/30/2022 3:28 PM EDT): Previously referred to [facility] Comprehensive weight management program Assessment & Plan (08/03/2022 1:48 PM EST): Referred to [facility] Comprehensive weight management program Genital herpes [...] is being treated with Valtrex Asthma 01/20/2012 Assessment & Plan (07/02/2025 9:04 AM EST): Under the care of Dr James Movie Writer , last seen 05/30/2025 No recent exacerbations Overactive bladder 01/20/2012 Polycystic ovarian syndrome 01/20/2012 Assessment & Plan (08/03/2022 9:18 AM EST): Seen in the past by an Tong Setter (Dr. Dozier) Under the care of Clare Carlin The last US on record done at [facility] 01/2019 showed a hypoechoic well circumscribed solid structure in the region of the posterior vaginal cuff 1 x 1.4 x 1.3 cm unchanged in size and appearance since a prior study 10/02/2015 radiologist emntions that stability over a 3 yr period indicates benignity Migraine Assessment & Plan (07/02/2025 9:06 AM EST): Under the care of Neurologist Dr florence Last seen 06/10/2025 Resolved Problems Problem Noted Date Diagnosed Date [...] Encounters Date Type Department Care Team Description 07/02/2025 9:00 AM EST Telemedicine [facility] [address] [place] [phone] Aaron Pisano MD Chronic midline low back pain without sciatica (Primary Dx); Mild intermittent asthma without complication; Severe obesity (CMS/HCC) (HCC); Migraine without aura and without status migrainosus, not intractable; Chronic bilateral low back pain without sciatica; Intractable vomiting with nausea 07/02/2025 Travel 07/01/2025 Refill [facility] [address] [place] [address] Aaron Pisano MD Chronic bilateral low back pain without sciatica; Chronic midline low back pain without sciatica; Intractable vomiting with nausea 06/26/2025 Travel 06/19/2025 Refill [facility] [address] [place] [address] Aaron Pisano MD Seasonal allergies 06/11/2025 Patient Outreach [facility] [address] [place] [address] Aaron Pisano MD Care Coordination (CHW outreach for SDOH PT-1 and food needs-referral completed /) 06/11/2025 Telephone [facility] [address] [place] [address] Aaron Pisano MD PT-1 06/04/2025 Refill [facility] [address] [place] [address] Aaron Pisano MD Cough in adult patient 06/03/2025 Refill [facility] [address] [place], [place] [phone] Aaron Pisano MD Chronic midline low back pain without sciatica 06/03/2025 Telephone [facility] [address] [place] [address] Aaron Pisano MD Med Refill 06/03/2025 Refill [facility] [address] [place] [address] Aaron Pisano MD Chronic midline low back pain without sciatica 05/31/2025 11:30 AM EDT Clinical Support [facility] [address] [place] [address] Altagracia Mancilla RN Chronic midline low back pain without sciatica (Primary Dx) 05/31/2025 Travel 05/24/2025 Refill [facility] [address] [place] [address] Miki Sarkar DDS 05/24/2025 Travel 05/24/2025 Patient Outreach [facility] [address] [place] [address] Aaron Pisano MD Care Coordination (CHW outreach for SDOH PT-1 and food needs-referral completed /) 05/24/2025 Telephone [facility] [address] [place] [address] Aaron Pisano MD Pt-1 05/15/2025 Patient Outreach [facility] [address] [place] [address] Aaron Pisano MD Care Coordination (CHW outreach for SDOH PT-1 and food needs-referral completed /) 05/15/2025 Telephone [facility] [address] [place] [address] Aaron Pisano MD PT-1 05/09/2025 Refill [facility] [address] [place] [address] Aaron Pisano MD Seasonal allergies 05/08/2025 3:00 PM EDT Office Visit [facility] [address] [place] [address] Rodo Bocanegra MD Fatigue, unspecified type (Primary Dx); Fever and chills 05/08/2025 11:00 AM EDT Office Visit [facility] [address] [place] [address] Miki Sarkar DDS Excessive attrition of teeth (Primary Dx) 05/08/2025 Orders Only GENERIC EXTERNAL DATA DEPARTMENT Provider, Generic External Data 05/08/2025 Travel 05/03/2025 Orders Only [facility] External Provider, [facility] 05/02/2025 Refill [facility] [address] [place], [place] [phone] Aaron Pisano MD Chronic midline low back pain without sciatica 05/02/2025 Refill [facility] [address] [place] [address] Aaron Pisano MD Chronic midline low back pain without sciatica 05/01/2025 Refill [facility] [address] [facility] [place] [place] [address] Aaron Pisano MD 05/01/2025 Refill [facility] [address] [place] [address] Aaron Pisano MD Diarrhea in adult patient 05/01/2025 Travel 04/21/2025 Refill [facility] [address] [place] [address] Aaron Pisano MD Chronic bilateral low back pain without sciatica; Intractable vomiting with nausea 04/11/2025 Refill [facility] [address] [place] [address] Aaron Pisano MD 04/10/2025 Travel 04/10/2025 Telephone [facility] [address] [place] [address] Altagracia Mancilla RN 04/09/2025 11:15 AM EDT Office Visit [facility] [place] [address] Aaron Pisano MD Primary hypertension (Primary Dx); COVID-19; Mild intermittent asthma without complication; Vasculitis (CMS/HCC); Leukocytoclastic vasculitis (CMS/HCC); Routine health maintenance; Acute cough 04/09/2025 Telephone [facility] [address] [facility] [place] [address] Aaron Pisano MD Appointment Request 04/09/2025 Travel 04/05/2025 Travel 04/05/2025 Telephone [facility] [address] [facility] [place] [address] Aaron Pisano MD Lab Order Request and Med Refill 04/05/2025 Telephone [facility] [address] [facility] [place] [address] Aaron Pisano MD 04/05/2025 Refill [facility] [address] [place] [address] Aaron Pisano MD Chronic midline low back pain without sciatica 04/05/2025 Refill [facility] [address] [place] [address] Altagracia Mancilla RN Chronic midline low back pain without sciatica 04/04/2025 Refill [facility] [address] [place] [address] Aaron Pisano MD Chronic midline low back pain without sciatica 04/03/2025 Travel 04/03/2025 Telephone [facility] [address] [place] [address] Aaron Pisano MD Med Refill 04/02/2025 Refill [facility] [address] [place] [address] Aaron Pisano MD 04/02/2025 Refill [facility] [address] [place] [address] Aaron Pisano MD Diarrhea in adult patient 04/02/2025 Refill [facility] [address] [place] [address] Aaron Pisano MD Chronic midline low back pain without sciatica; Diarrhea in adult patient 04/02/2025 Travel from Last 3 Months Immunizations Immunization Administration [...] Info) Description 07/29/2025 2:00 PM EST Telemedicine [facility] [address] [place] [address] Altagracia Mancilla, RN [address] [place] [address] 08/29/2025 12:45 PM EST Office Visit [facility] [address] [place] [address] Zhanna Hernandez 10/03/2025 10:00 AM EST Office Visit [facility] [address] [place] [address] Aaron Pisano MD [address] [place] [address] Health Maintenance Due Date Last Done Comments CT Colonography 1977 FIT DNA/Cologuard 1977 FIT 1977 FOBT 1977 Sigmoidoscopy 1977 Alcohol/Substance Use Screening 1989 Family Planning (PISQ) 1992 Pap Smear 1998 Cervical Cancer Screening 2007 HPV/Cotest 2007 Dental X-Ray: Bitewings 01/24/2025 01/24/2024, 11/30 COVID-19 Vaccine ( season) 2025 11/15/2020 Influenza Vaccine (#1) 2025 Depression Screening 06/05/2025 06/05/2024, 06/05/20 Dental Oral Exam 08/15/2025 02/11/2025, , 01/24/2024, Additional history exists Dental Prophylaxis 08/15/2025 02/11/2025, 1 09/26/2023, 01/24/2024, Additional history exists SDOH Screening 08/24/2025 08/24/2024 Dental X-Ray: Full Mouth 12/01/2025 11/30/2022, 11/0 03/2021 Disability Screening 01/07/2026 01/07/2025 Mammogram 02/20/2026 02/20/2025, 0701/2025, 01/26/2024, Additional history exists Tobacco Screening 05/08/2026 05/08/2025 Zoster Vaccines (1 of 2) 2027 Lipid Panel 12/28/2029 12/28/2024, 04/30/2024 DTaP/Tdap/Td Vaccines (3 - Td or Tdap) 02/03/2031 02/03/2021, 07/29/2010, 03/16/1982 Colonoscopy 02/15/2035 02/15/2025 Colorectal Cancer Screening 02/15/2035 RSV Patients and Patients Aged 60 years [...] Procedure Name Priority Date/Time Associated Diagnosis Comments AMB REFERRAL TO INFECTIOUS DISEASE Routine 06/11/2025 Fatigue, unspecified type Fever and chills POCT WANDA-14 URINE DRUG SCREEN Routine 05/31/2025 11:41 AM EDT Chronic midline low back pain without sciatica VITAMIN D,25-OH,TOTAL,IA Routine 05/30/2025 1:22 PM EDT [...] Routine 04/09/2025 1: 27 PM EDT COVID-19 BI MAMMOGRAM SCREENING TOMOSYNTHESIS BILATERAL Routine 02/20/2025 [...] Recently Relevant to Health Maintenance Results * Referral to Infectious Disease (06/11/2025) Rodo Bocanegra MD OUTPATIENT REFERRAL ORDERABLES F inal Result * (ABNORMAL) POCT WANDA-14 Urine Drug Screen (05/31/2025 11:41 AM EDT) THC Positive(A) Negative Cocaine Screen, Urine Negative Negative Opiate Screen, Urine Negative Negative Methamphetamine Screen Urine Negative Negative Amphetamine Screen, Urine Negative Negative Benzodiazepines Screen, Urine Negative Negative Barbiturate Screen, Urine Negative Negative Methadone Screen, Urine Negative Negative Buprenophine Screen, Urine Negative Negative TCA, Urine Negative Negative MDMA Urine Negative Negative ng/mL Oxycodone Screen, Urine Positive(A) Negative Comment:Rx Phencyclidine (PCP), Urine Negative Negative Propoxyphene, Urine Negative Negative Fentanyl, Urine Negative Negative Urine Urine specimen obtained by clean catch procedure / Unknown 05/31/2025 11:41 AM EDT Narrative Altagracia Mancilla RN - 05/31/2025 11:41 AM EDT .UTOX cup Lot#[id number] Exp. 05/14/26 Internal Pass Control Aaron Harris MD POINT OF CARE TEST EN TER/EDIT ORDERABLES Final Result * Vitamin D, 25-Hydroxy, Total, Immunoassay (05/30/2025 1:22 PM EDT) Only the most recent of2 resultswithin the time period is included. Vitamin D 25-OH Total 49.9 >30 ng/mL [facility] Comment: Health Based Reference Values*< 20 ng/mL Dagvuioez75-20 ng/mL Insufficient> 30 ng/mL Sufficient*Cielo TINEO. N [...] ORDERABLES Final Resul t Performing Organization Address [facility] Co de Phone Number [facility] [address] [place] [phone] * TSH with Reflex to Free T4 (05/30/2025 1:22 PM EDT) Only the most recent of2 resultswithin the time period is included. TSH reflex Free T4 1.37 0.32 - 4.0 uIU/mL [facility] Blood Venous blood specimen / Unknown 05/30/2025 1:22 PM EDT 05/30/2025 1:22 PM EDT us Rodo Bocanegra MD LAB BLOOD ORDERABLES Final Resul t Performing Organization Address [facility] Co de Phone Number [facility] [address] [place] [phone] * ANCA Vasculitides (05/08/2025 12:41 PM EDT) Myeloperoxidase Antibody <1.0 AI [facility] Comment:Value Interpretation ----- <1.0 No Antibody Detected > or = 1.0 Antibody DetectedAutoantibodies to myeloperoxidase (MPO) are commonlyassociated with the following small-vesselvasculitides: microscopic polyangiitis,polyarteritis nodosa, Churg-Chen syndrome,necrotizing and crescentic glomerulonephritis andoccasionally granulomatosis with polyangiitis(GPA, Marissa's). The perinuclear IFA pattern,(p-ANCA) is based largely on autoantibody tomyeloperoxidase which serves as the primary antigen.These autoantibodies are present in active disease. Proteinase-3 Antibody <1.0 [facility] Comment:Value Interpretation ----- <1.0 No Antibody Detected > or = 1.0 Antibody DetectedAutoantibodies to proteinase-3 (SD-3) are accepted ascharacteristic for granulomatosis with polyangiitis(GPA, Marissa's), and are detectable in 95% of thehistologically proven cases. The cytoplasmic IFApattern, (c-ANCA), is based largely on autoantibody toPR-3 which serves as the primary antigen.These autoantibodies are present in active disease.THIS TEST WAS PERFORMED AT:[employer] [place] [id number] REDMOND MD 05/08/2025 12:4 1 PM EDT 05/08/2025 4:00 PM EDT us Generic External Data Provider LAB BLOOD ORDERAB LES Final Result [facility] [address] [place] [phone] * (ABNORMAL) CBC auto differential (05/08/2025 12:41 PM EDT) Only the most recent of3 resultswithin the time period is included. White Blood Count 11.7(H) 4.8 - 10.8 X10*3/uL [facility] Red Blood Count 4.88 4.20 - 5.50 X10*6/uL [facility] Hemoglobin 13.4 12.0 - 16.0 g/dl [facility] Hematocrit 40.0 37.0 - 47.0 % [facility] Mean Corpuscular Volume 82.0 80.0 - 98.0 fL [facility] Mean Corpuscular Hemoglobin 27.5 27.0 - 33.0 pg [facility] Mean Corpuscular HGB Conc 33.5 31.0 - 35.0 g/dl [facility] Red Cell Distribution Width 15.2 11.0 - 16.0 % [facility] Platelet Count 338 160 - 400 X10*3/uL [facility] Mean Platelet Volume 10.1 9.4 - 12.3 fL [facility] Neutrophils Percent Auto 67.7 45 - 73 % [facility] Imm Gran Pct Auto 0.5(H) 0.0 - 0.4 % [facility] Lymphocytes Percent Auto 20.4 20 - 40 % [facility] Monocytes Percent Auto 6.9 2 - 11 % [facility] Eosinophils Percent Auto 3.2 0 - 4 % [facility] Basophils Percent Auto 1.3 0 - 2 % [facility] NRBC Pct Auto 0.0 0.0 - 0.2 /100WBC [facility] Neutrophils Absolute Auto 7.9 2.0 - 8.3 x10*3/uL [facility] Imm Gran Abs Auto 0.06(H) 0.00 - 0.03 X10*3/uL [facility] Lymphocytes Absolute Auto 2.4 1.2 - 4.9 X10*3/uL [facility] Monocytes Absolute Auto 0.8 0.1 - 1.2 X10*3/uL [facility] Eosinophils Absolute Auto 0.4 0.0 - 0.4 X10*3/uL [facility] Basophils Absolute Auto 0.2 0.0 - 0.2 X10*3/uL [facility] NRBC Abs Auto 0.000 0.0 - 0.012 X10*3/uL [facility] 05/08/2025 12:4 1 PM EDT 05/08/2025 4:00 PM EDT Generic External Data Provider LAB BLOOD ORDERAB LES Final Result Performing Organization Address [facility] Co de Phone Number [facility] [address] [place] [phone] * Cryoglobulin (% Cryocrit), Serum (05/08/2025 12:41 PM EDT) Cryoglobulin, Ql, Serum, Rflx Negative Negative [facility] Comment:The Cryocrit is prim arily intended for following apatient with previously defined and quantitatedcryoglobulins. The cryocrit may consist ofcryoglobulins, fibrins, complement, or mixtures ofthese.THIS TEST WAS PERFORMED AT:[id number] [place] [id number] W. MASON,MD,PHD % Cryocrit TNP [facility] 05/08/2025 12:4 1 PM EDT 05/08/2025 4:00 PM EDT Generic External Data Provider LAB BLOOD ORDERAB LES Final Result Performing Organization Address [facility] Co de Phone Number [facility] [address] [place] [phone] * (ABNORMAL) Sed Rate by Modified Westergren (05/08/2025 12:41 PM EDT) Erythrocyte Sedimentation Rate 38(H) 0 - 20 MM/HR [facility] Comment:Patients with polycy themia and many hemoglobin abnormalitiesmay have depressed sed rates whereas patients with anemiamay have elevated sed rates. 05/08/2025 12:4 1 PM EDT 05/08/2025 4:00 PM EDT us Generic External Data Provider LAB BLOOD ORDERAB LES Final Result Performing Organization Address [facility]/ZIP Co de Phone Number [facility] [address] [place] [phone] * (ABNORMAL) C-reactive Protein (05/08/2025 12:41 PM EDT) Only the most recent of2 resultswithin the time period is included. C Reactive Protein 2.00(H) < or = 0.50 mg/dL [facility] 05/08/2025 12:4 1 PM EDT 05/08/2025 4:00 PM EDT us Generic External Data Provider LAB BLOOD ORDERAB LES Final Result [facility] [address] [place] [phone] * Comprehensive Metabolic Panel (05/08/2025 12:41 PM EDT) Only the most recent of3 resultswithin the time period is included. Sodium 142 135 - 145 mmol/L [facility] Potassium 3.3 3.3 - 5.1 mmol/L [facility] Chloride 103 96 - 108 mmol/L [facility] Carbon Dioxide 29 22 - 29 mmol/L [facility] Anion Gap 13 12 - 20 [facility] Urea Nitrogen (BUN) 16 9 - 16 mg/dL [facility] Creatinine, Serum 0.98 0.5 - 1.4 mg/dL [facility] Estimated Glomerular Filt Rate >60 [facility] Comment:Chronic Kidney Disea se: Estimated GFR < 60 mL/min/[id number] Kidney Disease: Estimated GFR < 15 mL/min/1.73m2 Glucose 98 60 - 115 mg/dL [facility] Calcium 9.7 8.4 - 10.2 mg/dL [facility] Bilirubin, Total 0.4 0.0 - 1.0 mg/dL [facility] Aspartate Amino Transferase 22 5 - 31 U/L [facility] Alanine Aminotransferase 18 0 - 31 U/L [facility] Total Protein 7.8 6.5 - 8.0 g/dL [facility] Albumin Level 4.5 3.5 - 5.0 g/dL [facility] Alkaline Phosphatase 101 39 - 117 U/L [facility] 05/08/2025 12:4 1 PM EDT 05/08/2025 4:00 PM EDT us Generic External Data Provider LAB BLOOD ORDERAB LES Final Result Performing Organization Address City/State/[facility] Co de Phone Number [facility] [address] [place] [phone] * CT Sinus w/o Contrast (05/03/2025 4:22 PM EDT) Anatomical Region Laterality Modality Computed Tomogra phy 05/03/2025 4:22 PM EDT Narrative 05/03/2025 5:14 PM EDT [address] [address] [address] Scan Report Signed Patient: Zee Villanueva MR#: [id number] : 1975 Acct:[id number] Age/Sex: 49 / F ADM Date: 05/03/25 Loc: HO.CT Attending Dr: Kerry James MD Ordering Physician: Kerry James MD Date of Service: 05/03/25 Procedure(s): CT sinus wo IV con Accession Number(s): [id number] cc: Kerry James MD; Aaron Carcamo MD Report Number: [id number]: Total DLP = 92.00 mGy-cm Reason for [...] 05/03/25 1711 DD/ 1622 TD/TT: 05/03/25 1640 Mixing Machine Attendant: Procedure Note Donotuseinterpreter, Image - 05/03/[address] [place] [address] [address] Scan Report Signed Patient: Zee Villanueva AMR#: [id number] : 1975Acct:[id number] Age/Sex: 49 / FADM Date: 05/03/25 Loc: HO.CT Attending Dr: Kerry James MD Ordering Physician: Kerry James MD Date of Service: 05/03/25 Procedure(s): CT sinus wo IV con Accession Number(s): [id number] cc: Kerry James MD; Aaron Carcamo MD Report Number: [id number]: Total DLP = 92.00 mGy-cm Reason for [...] 05/03/25 1711 DD/ 1622 TD/TT: 05/03/25 1640 Mixing Machine Attendant: e [employer] External Provider IMG CT PROCEDURES Final Result * POCT Influenza A manually resulted (04/09/2025 1:41 PM EDT) [facility] Rapid Influenza A Ag Negative Negative, Indeterminate QC Media Lot # [id number] Lot# Expiration Date Swab Nasopharyngeal structure / Unknown 04/09/2025 1:41 PM EDT Result [facility] Aaron Harris MD POINT OF CARE TEST EN TER/EDIT ORDERABLES Final Result * POCT Influenza B manually resulted (04/09/2025 1:40 PM EDT) [facility] Rapid Influenza B Ag Negative Negative, Indeterminate QC Media Lot # [id number] Lot# Expiration Date Swab 04/09/2025 1:40 PM EDT Result [facility] Aaron Harris MD POINT OF CARE TEST EN TER/EDIT ORDERABLES Final Result * POCT Rapid COVID Ag (04/09/2025 1:39 PM EDT) [facility] Rapid COVID Ag Positive QC Media Lot # [id number] Lot# Expiration Date Swab 04/09/2025 1:39 PM EDT Result [facility] Aaron Harris MD POINT OF CARE TEST EN TER/EDIT ORDERABLES Final Result * POCT rapid strep A manually resulted (04/09/2025 1:27 PM EDT) [facility] Rapid Strep A Screen Negative Negative, None Detected QC Media Lot # [id number] Lot# Expiration Date [id number] Swab 04/09/2025 1:27 PM EDT Aaron Harris MD POINT OF CARE TEST EN TER/EDIT ORDERABLES Final Result * BI Mammogram Screening Tomosynthesis Bilateral (02/20/2025 2:30 PM EDT) Anatomical Region Laterality Modality Breast Bilateral Mammography 02/20/2025 2:30 PM EDT Narrative 03/01/2025 8:13 PM EDT [facility] [address] [place] [address] Mammography Report Signed Patient: Zee Villanueva MR#: [id number] : 1975 Acct:[id number] Age/Sex: 49 / F ADM Date: 02/20/25 Loc: HO.MAMMO Attending Dr: Aaron Carcamo MD Ordering Physician: Aaron Carcamo MD Resu lts: 1Negative Date of Service: 02/20/25 Follow Up: 1 Year From Orig inal Mammogram Procedure(s): MM tomosynthesis screening BI Accession Number(s): [id number] cc: Aaron Carcamo MD EXAMINATION: MM SCREENING [...] OV> 03/01/252009 DD/ 1430 TD/TT: 02/20/25 1510 Mixing Machine Attendant: Procedure Note Donotuseinterpreter, Image - 03/01/2025 [facility] [address] [place] [address] Mammography Report Signed Patient: Zee Villanueva AMR#: [id number] : 1975Acct:[id number] Age/Sex: 49 / FADM Date: 02/20/25 Loc: HO.MAMMO Attending Dr: Aaron Carcamo MD Ordering Physician: Aaron Carcamo MDResu lts: 1Negative Date of Service: 02/20/25Follow Up: 1 Year From Orig ina Mammogram Procedure(s): MM tomosynthesis screening BI Accession Number(s): [id number] cc: Aaron Carcamo MD EXAMINATION: MM SCREENING [...] OV> 03/01/252009 DD/ 1430 TD/TT: 02/20/25 1510 Mixing Machine Attendant: us Aaron Harris MD IMG BI PROCEDURES Satya lauren Result - Final * Hepatitis Panel, General (12/28/2024 2:24 PM EDT) Hepatitis A IgM Nonreactive Nonreactive [facility] Comment:IgM antibodies to LUTHER V not detected; does not exclude earlyacute or recovered HAV infection. ~Hepatitis B Surface Antibody NONREACTIVE Nonreactive [facility] Comment:Nonreactive: < 8.00 mIU/mL Hepatitis B Core Antibody Nonreactive Nonreactive [facility] Hepatitis C Antibody Nonreactive Nonreactive [facility] Comment:Antibodies to HCV no t detected; does not exclude early acuteHCV infection. Hepatitis B Surface Ag Negative Negative [facility] 12/28/2024 2:24 PM EDT 12/28/2024 2:26 PM EDT us Generic External Data Provider LAB BLOOD ORDERAB LES Final Result [facility] [address] [place] [phone] * (ABNORMAL) Lipid Panel, Standard (12/28/2024 2:24 PM EDT) Triglycerides 138 <150 mg/dL [facility] Comment:Desirable Triglyceri de: less than 150 mg/dLBorderline High Triglyceride 150-199 mg/dLHigh Triglyceride: 200-499 mg/dLVery High Triglyceride: greater than or equal to 5OO mg/dL Cholesterol 199 <200 mg/dL [facility] Comment:Desirable Cholestero l: less than 200 mg/dLBorderline High Cholesterol: 200-239 mg/dLHigh Cholesterol: greater than 239 mg/dL LDL Cholesterol Calculated 121(H) <100 mg/dL [facility] Comment:Desirable LDL: less than 100 mg/dLNear Optimal/Above Optimal LDL: 110- 129 mg/dLBorderline High LDL: 130-159 mg/dLHigh LDL: 160-189 mg/dLVery High LDL: greater than or equal to 190 mg/dL HDL Cholesterol 51 >40 mg/dL [facility] Comment:Desirable HDL: great er than 40 mg/dL Note: This HDL assay may give artificially low results in patients with liver disease. Blood Venous blood specimen / Unknown 12/28/2024 2:24 PM EDT 12/28/2024 2:26 PM EDT us Aaron Harris MD LAB BLOOD ORDERABLES Final Result [facility] [address] [place] [phone] * HIV AB/AG (02/26/2020 1:03 PM [...] of detection of this assay. The [employer] Radioisotope Technologist HIV Ag/Ab Combo assay result and supplemental assay results should be interpreted in conjunction with the patient's clinical presentation, history and other laboratory results. If the results are inconsistent with clinical evidence, additional testing is suggested to confirm the result. 02/26/2020 1:03 PM EDT Aaron Harris MD HISTORICAL/NON ORDERA BLE LABS Final Result [facility] [address] from Last 3 Months or Most Recently Relevant to Health Maintenance Insurance [facility] C3 DENTAL-[facility] MEDICAID STAND ADULT * Guarantor: Zee Villanueva Account Type Relation to Patient Date of Phone Billing Address Third Alliance Party Liability Self [address] [place] [address] [place] [address] [place] [address] [place] [address] Care Teams Taper Operator Relationship Specialty Start Date End Date Aaron Pisano MD [address] [place] [address] PCP - General Internal Medicine 05/10/14 Antonietta Lim Bird KeeperNeon Pumper 09/18/24
--- OUTSIDE RECORDS SUMMARY | 2025-07-02 15:34 | XMS_ITS | Encounter Summary ---
Author Organization [employer] Address [address] [facility] 7 [place] [address] Care Team Providers Care Facilities Maintenance Technician Name Role Phone Aaron Pisano MD Primary Care Provide r Reason for Visit * Reason Onset Date Comments Med Refill 06/03/2025 Encounter Details Date Type Department Care Team ([facility] Contact Info) Description 06/03/2025 Telephone [facility] MEDICINE [address] [place] [address] Aaron Pisano MD [address] [place] [address] Med Refill Social History Tobacco Use Types [...] the past 12 months, has t he [employer], gas, oil or water company threatened to [...] Miscellaneous Notes * Telephone Encounter - Sunil Mcconnlel - 06/03/2025 9:35 AM EDT TC from pt requesting medication refill. Medications needing refill : oxyCODONE (Roxicodone) 5 MG immediate release tablet To be sent to: [facility] [place] [place] - [address] [facility] documented in this encounter Plan of Treatment Upcoming Encounters Date Type Department Care Team ([facility] st Contact Info) Description 07/29/2025 2:00 PM EST Telemedicine [facility] CHC MED & PEDS [address] [place] [address] Altagracia Mancilla, GRACIELA 505 [place] [address] 08/29/2025 12:45 PM EST Office Visit [facility] ADULT DENTAL [address] [place] [address] Zhanna Hernandez 10/03/2025 10:00 AM EST Office Visit [facility] MEDICINE [address] [place] [address] Aaron Pisano MD [address] [place] [address] documented as of this encounter Goals Goal [...] documented as of this encounter Care Teams Facilities Maintenance Technician Relationship Specialty Start Date End Date Aaron Pisano MD [address] [place] [address] PCP - General Internal Medicine 05/10/14 Antonietta Lim Research ProgrammerIngot Stripper 09/18/24 documented as of this encounter
--- OUTSIDE RECORDS SUMMARY | 2025-07-02 15:34 | XMS_ITS | Encounter Summary ---
Author Organization [employer] Address 75 [facility] 7 [place] [address] Care Team Providers Care Senior It Assistant Name Role Phone Aaron Pisano MD Primary Care Provide r Reason for Visit * Reason Onset Date Comments Med Refill 06/03/2025 Encounter Details Date Type Department Care Team ([facility] st Contact Info) Description 06/03/2025 Refill [facility] MEDICINE [address] [place] [address] Aaron Pisano MD [address] [place] [address] Chronic midline low back pain without sciatica [...] EST Telemedicine [facility] CHC MED & PEDS [address] [place] [address] Altagracia Mancilla, RN 505 [place] [address] 08/29/2025 12:45 PM EST Office Visit [facility] ADULT DENTAL [address] [place] [address] Zhanna Hernandez 10/03/2025 10:00 AM EST Office Visit [facility] MEDICINE [address] [place], [place] [phone] Aaron Pisano MD [address] [place] [address] documented as of this encounter Goals Goal [...] as of this encounter Care Teams Senior It Assistant Relationship Specialty Start Date End Date Aaron Pisano MD [address] [place] [address] PCP - General Internal Medicine 05/10/14 Antonietta Lim Nuclear Medicine SupervisorLicensed Club Manager 09/18/24 documented as of this encounter
--- OUTSIDE RECORDS SUMMARY | 2025-07-02 15:34 | XMS_ITS | Encounter Summary ---
Author Organization [employer] Address [address] [place] [address] 7 [place] [address] Care Team Providers Care Goggles Assembler Name Role Phone Aaron Pisano MD Primary Care Provide r Reason for Visit * Reason Onset Date Comments PT-1 06/11/2025 Encounter Details Date Type Department Care Team ([facility] Contact Info) Description 06/11/2025 Telephone [facility] MEDICINE [address] [place] [address] Aaron Pisano MD [address] [place] [address] PT-1 Social History Tobacco Use Types Packs/Day [...] * Telephone Encounter - Berto Cuellar - 06/11/2025 1:36 PM EST Patient calling requesting PT1 Home Address verified: Y/N: Yes Provider name or facility name: [facility] Facility Address: [address] [facility] [place] Escort needed: Y/N: No Do you have a wheelchair: Y/N: No If yes- Manual or electric: N/A Visits: Once a month - Patient calling requesting PT1 Home Address verified: Y/N: Yes Provider name or facility name: [facility] Pulmonology Facility Address: [address] [facility] [place] Escort needed: Y/N: No Do you have a wheelchair: Y/N: No If yes- Manual or electric: N/A Visits: 3 times a month - Patient calling requesting PT1 Home Address verified: Y/N: Yes Provider name or facility name: [facility] Animal Skinner Facility Address: [address] [facility] [place] Escort needed: Y/N: No Do you have a wheelchair: Y/N: No If yes- Manual or electric: N/A Visits: Once a month - Patient calling requesting PT1 Home Address verified: Y/N: Yes Provider name or facility name: [facility] Facility Address: [address] [facility] [place] Escort needed: Y/N: No Do you have a wheelchair: Y/N: No If yes- Manual or electric: N/A Visits: 3 times a month - Patient calling requesting PT1 Home Address verified: Y/N: Yes Provider name or facility name: [facility] Rheumatology Facility Address: [address] [place] [address] [facility] Escort needed: Y/N: No Do you have a wheelchair: Y/N: No If yes- Manual or electric: N/A Visits: Once a month documented in this encounter Plan of Treatment Upcoming Encounters Date Type Department Care Team ([facility] st Contact Info) Description 07/29/2025 2:00 PM EST Telemedicine [facility] CHC MED & PEDS [address] [place] [address] Altagracia Mancilla RN 505 [place] [address] 08/29/2025 12:45 PM EST Office Visit [facility] ADULT DENTAL [address] [place] [address] Zhanna Hernandez 10/03/2025 10:00 AM EST Office Visit [facility] MEDICINE [address] [place] [address] Aaron Pisano MD [address] [place] [address] documented as of this encounter Goals Goal [...] documented as of this encounter Care Teams Goggles Assembler Relationship Specialty Start Date End Date Aaron Pisano MD [address] [place] [address] PCP - General Internal Medicine 05/10/14 Antonietta Lim Dry Talc RackerDirector New Product 09/18/24 documented as of this encounter
--- OUTSIDE RECORDS SUMMARY | 2025-07-02 15:34 | XMS_ITS | Encounter Summary ---
Author Organization [employer] Address 75 [facility] 7 [place] [address] Care Team Providers Care Increment Manager Name Role Phone Aaron Pisano MD Primary Care Provide r Reason for Visit * Reason Onset Date Comments Med Refill 05/24/2025 Encounter Details Date Type Department Care Team ([facility] st Contact Info) Description 05/24/2025 Refill [facility] ADULT DENTAL [address] [place] [address] Miki Sarkar, DDS [address] [place] [address] Social History Tobacco Use Types Packs/Day Years [...] Info) Description 07/29/2025 2:00 PM EST Telemedicine [facility] CHC MED & PEDS [address] [place] [address] Altagracia Mancilla RN [address] [place] [address] 08/29/2025 12:45 PM EST Office Visit [facility] ADULT DENTAL [address] [place] [address] Zhanna Hernandez 10/03/2025 10:00 AM EST Office Visit [facility] MEDICINE [address] [place], [place] [phone] Aaron Pisano MD 230 [place] [address] documented as of this encounter Goals Goal [...] documented as of this encounter Care Teams Increment Manager Relationship Specialty Start Date End Date Aaron Pisano MD 230 [place] [address] PCP - General Internal Medicine 05/10/14 Antonietta Lim Germ DrierFloor Technician 09/18/24 documented as of this encounter
--- OUTSIDE RECORDS SUMMARY | 2025-07-02 15:34 | XMS_ITS | Encounter Summary ---
Author Organization [employer] Address 75 [facility] 7t [place] [address] Care Team Providers Care Architecture Faculty Member Name Role Phone Aaron Pisano MD Primary Care Provide r Encounter Details Date Type Department Care Team ([facility] Contact Info) Description 04/05/2025 Telephone [facility] MEDICINE [address] [place] [address] Aaron Pisano MD 230 [place], [place] [phone] Social History Tobacco Use Types Packs/Day Years [...] Info) Description 07/29/2025 2:00 PM EST Telemedicine [facility] CHC MED & PEDS [address] [place] [address] Altagracia aMncilla, GRACIELA 505 [place] [address] 08/29/2025 12:45 PM EST Office Visit [facility] ADULT DENTAL [address] [place], [place] [phone] Zhanna Hernandez 10/03/2025 10:00 AM EST Office Visit [facility] MEDICINE [address] [place] [address] Aaron Pisano MD [address] [place] [address] documented as of this encounter Goals Goal [...] documented as of this encounter Care Teams Architecture Faculty Member Relationship Specialty Start Date End Date Aaron Pisano MD [address] [place] [address] PCP - General Internal Medicine 05/10/14 Antonietta Lim Seed Potato CutterSenior Tax Analyst 09/18/24 documented as of this encounter
--- OUTSIDE RECORDS SUMMARY | 2025-07-02 15:34 | XMS_ITS | Encounter Summary ---
Author Organization [employer] Address 75 [facility] 7t [place] [address] Care Team Providers Care Burning Supervisor Name Role Phone Aaron Pisano MD Primary Care Provide r Reason for Visit * Reason Comments Med Refill Encounter Details Date Type Department Care Team ([facility] st Contact Info) Description 04/05/2025 Refill [facility] MEDICINE 230 [place] [address] Aaron Pisano MD [address] [place] [address] Chronic midline low back pain without sciatica [...] the past 12 months, has t he [employer], gas, oil or water company threatened to [...] Info) Description 07/29/2025 2:00 PM EST Telemedicine [facility] CHC MED & PEDS 505 [place] [address] Altagracia Mancilla, GRACIELA 505 [place] [address] 08/29/2025 12:45 PM EST Office Visit [facility] ADULT DENTAL [address] [place] [address] Zhanna Hernandez 10/03/2025 10:00 AM EST Office Visit [facility] MEDICINE [address] [place] [address] Aaron Pisano MD [address] [place] [address] documented as of this encounter Goals Goal [...] documented as of this encounter Care Teams Burning Supervisor Relationship Specialty Start Date End Date Aaron Pisano MD [address] [place] [address] PCP - General Internal Medicine 05/10/14 Antonietta Lim Cook EnchiladaCloth Cutter 09/18/24 documented as of this encounter
--- OUTSIDE RECORDS SUMMARY | 2025-07-02 15:34 | XMS_ITS | Encounter Summary ---
Author Organization [employer] Address 75 [facility] 7 [place] [address] Care Team Providers Care Digital Strategist Senior Manager Name Role Phone Aaron Pisano MD Primary Care Provide r Reason for Visit * Reason Onset Date Comments Med Refill 01/07/2025 Encounter Details Date Type Department Care Team (Late st Contact Info) Description 01/07/2025 Refill [facility] MEDICINE [address] [place] [address] Fma Hartman MD [address] [place] [address] Chronic midline low back pain without sciatica [...] the past 12 months, has t he [employer], gas, oil or water company threatened to [...] Info) Description 07/29/2025 2:00 PM EST Telemedicine [facility] CHC MED & PEDS 505 [place] [address] Altagracia Mancilla, RN [address] [place] [address] 08/29/2025 12:45 PM EST Office Visit [facility] ADULT DENTAL [address] [place] [address] Zhanna Hernandez 10/03/2025 10:00 AM EST Office Visit [facility] MEDICINE [address] [place], [place] [phone] Aaron Pisano MD 230 [place] [address] documented as of this encounter Goals Goal [...] as of this encounter Care Teams Digital Strategist Senior Manager Relationship Specialty Start Date End Date Aaron Pisano MD [address] [place] [address] PCP - General Internal Medicine 05/10/14 Antonietta Lim Flight SurgeonMarketing Director Assisted Living 09/18/24 documented as of this encounter
--- OUTSIDE RECORDS SUMMARY | 2025-07-02 15:34 | XMS_ITS | Encounter Summary ---
Author Organization [employer] Address 75 [facility] 7 [place] [address] Care Team Providers Care Stem Roller Name Role Phone Aaron Pisano MD Primary Care Provide r Reason for Visit * Reason Onset Date Comments PT-1 05/15/2025 Encounter Details Date Type Department Care Team ([facility] Contact Info) Description 05/15/2025 Telephone [facility] MEDICINE [address] [place] [address] Aaron Pisano MD [address] [place] [address] PT-1 Social History Tobacco Use Types Packs/Day [...] Y/N: Yes Provider name or facility name: [facility] Infectious Disease Facility Address: [address] [place] [address] Escort needed: Y/N: No Do you have a wheelchair: Y/N: No If yes- Manual or electric: N/A Visits: Twice a month documented in this encounter Plan of Treatment Upcoming Encounters Date Type Department Care Team (Late st Contact Info) Description 07/29/2025 2:00 PM EST Telemedicine [facility] CHC MED & PEDS 505 [place] [address] Altagracia Mancilla, GRACIELA [address] [place] [address] 08/29/2025 12:45 PM EST Office Visit [facility] ADULT DENTAL 230 [place], [place] [phone] Hernandez Zhanna 10/03/2025 10:00 AM EST Office Visit [facility] MEDICINE [address] [place], [place] [phone] Aaron Pisano MD 230 [place], [place] [phone] documented as of this encounter Goals Goal [...] documented as of this encounter Care Teams Stem Roller Relationship Specialty Start Date End Date Aaron Pisano MD 230 [place], [place] [phone] PCP - General Internal Medicine 05/10/14 Antonietta Lim Dock SuperintendentProducts Mechanical Design Engineer 09/18/24 documented as of this encounter
--- OUTSIDE RECORDS SUMMARY | 2025-07-02 15:34 | XMS_ITS | Encounter Summary ---
Author Organization [employer] Address 75 [facility] 7 [place] [address] Care Team Providers Care Nursing Specialist Name Role Phone Aaron Pisano MD Primary Care Provide r Reason for Visit * Reason Onset Date Comments pt1 01/07/2025 Encounter Details Date Type Department Care Team ([facility] Contact Info) Description 01/07/2025 Telephone [facility] MEDICINE [address] [place] [address] Aaron Pisano MD [address] [place] [address] pt1 Social History Tobacco Use Types Packs/Day [...] this requirement. Please update information for address [address] [place] [address] Dr [place] [facility] [address] documented in this encounter Plan of Treatment Upcoming Encounters Date Type Department Care Team (Late st Contact Info) Description 07/29/2025 2:00 PM EST Telemedicine [facility] CHC MED & PEDS [address] [place] [address] Altagracia Mancilla, RN 505 [place] [address] 08/29/2025 12:45 PM EST Office Visit [facility] ADULT DENTAL 230 [facility] [place] [address] Zhanna Hernandez 10/03/2025 10:00 AM EST Office Visit [facility] MEDICINE [address] [place] [address] Aaron Pisano MD [address] [place] [address] documented as of this encounter Goals Goal [...] documented as of this encounter Care Teams Nursing Specialist Relationship Specialty Start Date End Date Aaron Pisano MD [address] [place] [address] PCP - General Internal Medicine 05/10/14 Antonietta Lim Spring LayerAssistant Service Manager 09/18/24 documented as of this encounter
--- OUTSIDE RECORDS SUMMARY | 2025-07-02 15:34 | XMS_ITS | Encounter Summary ---
Author Organization [employer] Address 75 [facility] 7 [place] [address] Care Team Providers Care Access Service Representative Name Role Phone Aaron Pisano MD Primary Care Provide r Reason for Visit * Reason Onset Date Comments Med Refill 01/04/2025 Encounter Details Date Type Department Care Team (Late st Contact Info) Description 01/04/2025 Refill [facility] MEDICINE [address] [place] [address] Fam Hartman MD [address] [place] [address] Chronic midline low back pain without sciatica [...] the past 12 months, has t he [employer], gas, oil or water company threatened to [...] Info) Description 07/29/2025 2:00 PM EST Telemedicine [facility] CHC MED & PEDS [address] [place] [address] Altagracia Mancilla, RN 505 [place] [address] 08/29/2025 12:45 PM EST Office Visit [facility] ADULT DENTAL [address] [place] [address] Zhanna Hernandez 10/03/2025 10:00 AM EST Office Visit [facility] MEDICINE [address] [place], [place] [phone] Aaron Pisano MD 230 [place] [address] documented as of this encounter Goals Goal [...] documented as of this encounter Care Teams Access Service Representative Relationship Specialty Start Date End Date Aaron Pisano MD [address] [place] [address] PCP - General Internal Medicine 05/10/14 Antonietta Lim Quarrying ManagerHat Presser 09/18/24 documented as of this encounter
--- OUTSIDE RECORDS SUMMARY | 2025-07-02 15:34 | XMS_ITS | Encounter Summary ---
Author Organization [employer] Address 75 [facility] 7t [place] [address] Care Team Providers Care Currency Counter Name Role Phone Aaron Pisano MD Primary Care Provide r Reason for Visit * Reason Onset Date Comments Med Refill 05/02/2025 Encounter Details Date Type Department Care Team (Late st Contact Info) Description 05/02/2025 Refill [facility] CHC MED & PEDS [address] [place] [address] Aaron Pisano MD 230 [facility] [place] [address] Chronic midline low back pain without sciatica [...] Info) Description 07/29/2025 2:00 PM EST Telemedicine [facility] CHC MED & PEDS 505 [place] [address] Altagracia Mancilla, RN 505 [place] [address] 08/29/2025 12:45 PM EST Office Visit [facility] ADULT DENTAL 230 [place] [address] Zhanna Hernandez 10/03/2025 10:00 AM EST Office Visit [facility] MEDICINE [address] [place] [address] Aaron Pisano MD 230 [place] [address] documented as of this encounter Goals Goal [...] documented as of this encounter Care Teams Currency Counter Relationship Specialty Start Date End Date Aaron Pisano MD [address] [place] [address] PCP - General Internal Medicine 05/10/14 Antonietta Lim Professor Of Biological SciencesEmployment Coach 09/18/24 documented as of this encounter
--- OUTSIDE RECORDS SUMMARY | 2025-07-02 15:34 | XMS_ITS | Encounter Summary ---
Author Organization [employer] Address 75 [facility] 7t [place] [address] Care Team Providers Care Technology Lab Teacher Name Role Phone Aaron Pisano MD Primary Care Provide r Reason for Visit * Reason Comments Med Refill Encounter Details Date Type Department Care Team ([facility] st Contact Info) Description 07/04/2023 Refill [facility] CHC MED & PEDS [address] [place], [place] [phone] Sumi Vang, ANP 230 [place] [address] Social History Tobacco Use Types Packs/Day Years [...] Description 07/29/2025 2:00 PM EST Telemedicine [facility] CHC MED & PEDS 505 [place] [address] Altagracia Mancilla, RN 505 [place] [address] 08/29/2025 12:45 PM EST Office Visit [facility] ADULT DENTAL 230 [place] [address] Zhanna Hernandez 10/03/2025 10:00 AM EST Office Visit [facility] MEDICINE 230 [place] [address] Aaron Pisano MD 230 [place] [address] documented as of this encounter Goals Goal Patient Goal Type Associated Problems Recent Progress Patient-Stated? Author Blood Pressure < 140/90 Blood Pressure 130/83( 025 3:21 PM EDT) No Piers-Gambl e, Giovanna, PharmD documented as of this encounter Visit Diagnoses Not on filedocumented in this encounter Care Teams Technology Lab Teacher Relationship Specialty Start Date End Date Aaron Pisano MD 230 [place] [address] PCP - General Internal Medicine 05/10/14 Antonietta Lim State Historical Society DirectorLocation Analyst 09/18/24 documented as of this encounter
--- OUTSIDE RECORDS SUMMARY | 2025-07-02 15:34 | XMS_ITS | Encounter Summary ---
Author Organization [employer] Address 75 [facility] 7 [place] [address] Care Team Providers Care Data Processing Auditor Name Role Phone Aaron Pisano MD Primary Care Provide r Reason for Visit * Reason Comments Med Refill Encounter Details Date Type Department Care Team ([facility] st Contact Info) Description 07/07/2023 Refill [facility] MEDICINE [address] [place] [address] Aaron Pisano MD [address] [place] [address] Social History Tobacco Use Types Packs/Day Years [...] Info) Description 07/29/2025 2:00 PM EST Telemedicine [facility] CHC MED & PEDS 505 [place] [address] Altagracia Mancilla RN 505 [place] [address] 08/29/2025 12:45 PM EST Office Visit [facility] ADULT DENTAL [address] [place] [address] Zhanna Hernandez 10/03/2025 10:00 AM EST Office Visit [facility] MEDICINE [address] [place] [address] Aaron Pisano MD [address] [place] [address] documented as of this encounter Goals Goal Patient Goal Type Associated Problems Recent Progress Patient-Stated? Author Blood Pressure < 140/90 Blood Pressure 130/83( 025 3:21 PM EDT) No Piers-Gambl Giovanna lozano, PharmD documented as of this encounter Visit Diagnoses Not on filedocumented in this encounter Care Teams Data Processing Auditor Relationship Specialty Start Date End Date Aaron Pisano MD [address] [place] [address] PCP - General Internal Medicine 05/10/14 Antonietta Lim Extractive MetallurgistProgram Planner 09/18/24 documented as of this encounter
--- OUTSIDE RECORDS SUMMARY | 2025-07-02 15:34 | XMS_ITS | Encounter Summary ---
Author Organization [employer] Address [address] [place] [address] 7 [place] [address] Care Team Providers Care Title One Teacher Name Role Phone Aaron Pisano MD Primary Care Provide r Reason for Visit * Reason Comments Med Refill Encounter Details Date Type Department Care Team ([facility] st Contact Info) Description 07/01/2025 Refill [facility] MEDICINE 230 [place] [address] Aaron Pisano MD 230 [place] [address] Chronic bilateral low back pain without sciatica; [...] Info) Description 07/29/2025 2:00 PM EST Telemedicine [facility] CHC MED & PEDS 505 [place] [address] Altagracia Mancilla, RN 505 [place] [address] 08/29/2025 12:45 PM EST Office Visit [facility] ADULT DENTAL 230 [place] [address] Zhanna Hernandez 10/03/2025 10:00 AM EST Office Visit [facility] MEDICINE 230 [place] [address] Aaron Pisano MD 230 [place] [address] documented as of this encounter Goals Goal Patient Goal Type Associated Problems Recent Progress Patient-Stated? Author Blood Pressure < 140/90 Blood Pressure 130/83( 025 3:21 PM EDT) Giovanna Edwards, SohamD documented as of this encounter Visit Diagnoses Diagnosis Chronic bilateral low back pain without sciatica Chronic midline low back pain without sciatica Intractable vomiting with nausea documented in this encounter Additional Health Concerns Assessment Noted Time PHQ-9 Depression Total Score: 2 06/05/20 24 8:38 AM EDT documented as of this encounter Care Teams Title One Teacher Relationship Specialty Start Date End Date Aaron Pisano MD [address] [place] [address] PCP - General Internal Medicine 05/10/14 Antonietta Lim Glue SprayerBroadcast Director Operations 09/18/24 documented as of this encounter
--- OUTSIDE RECORDS SUMMARY | 2025-07-02 15:34 | XMS_ITS | Encounter Summary ---
Author Organization [employer] Address 75 [facility] 7t [place] [address] Care Team Providers Care Metal Numerical Tool Programmer Name Role Phone Aaron Pisano MD Primary Care Provide r Encounter Details Date Type Department Care Team (Latest Contact Info) Description 07/02/2025 Travel Social History Tobacco Use Types Packs/Day [...] Info) Description 07/29/2025 2:00 PM EST Telemedicine [facility] CHC MED & PEDS 505 [place] [address] Altagraica Mancilla, GRACIELA 505 [place] [address] 08/29/2025 12:45 PM EST Office Visit [facility] ADULT DENTAL 230 [place] [address] Zhanna Hernandez 10/03/2025 10:00 AM EST Office Visit [facility] MEDICINE 230 [place] [address] Aaron Pisano MD 230 [place] [address] documented as of this encounter Goals Goal [...] documented as of this encounter Care Teams Metal Numerical Tool Programmer Relationship Specialty Start Date End Date Aaron Pisano MD 230 [place] [address] PCP - General Internal Medicine 05/10/14 Antonietta Lim Field InvestigatorCloth Dyer 09/18/24 documented as of this encounter
--- OUTSIDE RECORDS SUMMARY | 2025-07-02 15:34 | XMS_ITS | Encounter Summary ---
Author Organization [employer] Address 75 [facility] 7 [place] [address] Care Team Providers Care Regional Controller Name Role Phone Aaron Pisano MD Primary Care Provide r Reason for Visit * Reason Onset Date Comments Med Refill 02/05/2025 Encounter Details Date Type Department Care Team ([facility] st Contact Info) Description 02/05/2025 Refill [facility] CHC MED & PEDS 505 [place] [address] Fam Hartman MD 505 [place] [address] Chronic midline low back pain without sciatica [...] 07/29/2025 2:00 PM EST Telemedicine [facility] CHC MED & PEDS 505 [place] [address] Altagracia Mancilla, RN 505 [place] [address] 08/29/2025 12:45 PM EST Office Visit [facility] ADULT DENTAL 230 [place] [address] Zhanna Hernandez 10/03/2025 10:00 AM EST Office Visit [facility] MEDICINE [address] [place] [address] Aaron Pisano MD 230 [place] [address] documented as of this encounter Goals Goal [...] documented as of this encounter Care Teams Regional Controller Relationship Specialty Start Date End Date Aaron Pisano MD [address] [place] [address] PCP - General Internal Medicine 05/10/14 Antonietta Lim Spring Assembler SupervisorSilk Washing Machine Operator 09/18/24 documented as of this encounter
--- OUTSIDE RECORDS SUMMARY | 2025-07-02 15:34 | XMS_ITS | Encounter Summary ---
Author Organization [employer] Address 75 [facility] 7 [place] [address] Care Team Providers Care Procurement Engineer Name Role Phone Aaron Pisano MD Primary Care Provide r Reason for Visit * Reason Onset Date Comments Med Refill 05/01/2025 Encounter Details Date Type Department Care Team ([facility] st Contact Info) Description 05/01/2025 Refill [facility] MEDICINE 230 [place] [address] Aaron Pisano MD [address] [place] [address] Social History Tobacco Use Types Packs/Day Years [...] the past 12 months, has t he [employer], gas, oil or water company threatened to [...] Info) Description 07/29/2025 2:00 PM EST Telemedicine [facility] CHC MED & PEDS [address] [place] [address] Altagracia Mancilla, GRACIELA 505 [place] [address] 08/29/2025 12:45 PM EST Office Visit [facility] ADULT DENTAL 230 [place] [address] Zhanna Hernandez 10/03/2025 10:00 AM EST Office Visit [facility] MEDICINE [address] [place] [address] Aaron Pisano MD [address] [place] [address] documented as of this encounter Goals Goal [...] documented as of this encounter Care Teams Procurement Engineer Relationship Specialty Start Date End Date Aaron Pisano MD [address] [place] [address] PCP - General Internal Medicine 05/10/14 Antonietta Lim Proposal Manager WriterTorch Straightener And Heater 09/18/24 documented as of this encounter
--- OUTSIDE RECORDS SUMMARY | 2025-07-02 15:34 | XMS_ITS | Encounter Summary ---
Author Organization [email or web address] Address 75 [facility] 7 [place] [address] Care Team Providers Care Insurance Coordinator Name Role Phone Aaron Pisano MD Primary Care Provide r Reason for Visit * Reason Onset Date Comments Appointment Request 04/09/2025 Encounter Details Date Type Department Care Team ([facility] Contact Info) Description 04/09/[address] [facility] MEDICINE 230 [place] [address] Aaron Pisano MD 230 [place] [address] Appointment Request Social History Tobacco Use Types [...] , pt has covid Contact pt at [phone] documented in this encounter Plan of Treatment Upcoming Encounters Date Type Department Care Team (Late st Contact Info) Description 07/29/2025 2:00 PM EST Telemedicine [facility] CHC MED & PEDS 505 [place] [address] Altagracia Mancilla, GRACIELA 505 [place] [address] 08/29/2025 12:45 PM EST Office Visit [facility] ADULT DENTAL [address] [place] [address] Zhanna Hernandez 10/03/2025 10:00 AM EST Office Visit [facility] MEDICINE [address] [place] [address] Aaron Pisano MD 230 [place] [address] documented as of this encounter Goals Goal [...] as of this encounter Care Teams Insurance Coordinator Relationship Specialty Start Date End Date Aaron Pisano MD [address] [place] [address] PCP - General Internal Medicine 05/10/14 Antonietta Lim HydrogeologistGlobal Compensation Analyst 09/18/24 documented as of this encounter
== END 2025-07-02 12:47 | disposition home or self-care (01) ==
LOC: HO.HGI 11:41
PROVIDERS: PCP Internal Medicine; Visit Provider Nurse Practitioner Family
DX: R11.2 Nausea with vomiting, unspecified (principal); K21.9 Gastro-esophageal reflux disease without esophagitis; K59.1 Functional diarrhea; R10.84 Generalized abdominal pain
CPT/HCPCS: 99214

== ENCOUNTER → 2025-07-02 11:41 | Outpatient (BNVA) | payer MEDICAID, SELFPAY | PROVIDERS: PCP Internal Medicine; Visit Provider Nurse Practitioner Family | DX: K21.9 Gastro-esophageal reflux disease without esophagitis (principal); R11.2 Nausea with vomiting, unspecified; R10.84 Generalized abdominal pain; K59.1 Functional diarrhea; G89.29 Other chronic pain; Z79.899 Other long term (current) drug therapy | CPT/HCPCS: 99212 ==

== ENCOUNTER 2025-07-09 11:37 | Outpatient (AMB) | payer MEDICAID, SELFPAY ==
[2025-07-09 12:12] VITALS: BP 116/60; PULSE 70
--- NOTE | 2025-07-09 12:12 | A.OFFVIS_ITS ---
Vital Signs 07/09/25 12:12 BP 116/60 Pulse 70 Intake Visit Reasons: 1m Allergies tramadol Allergy (Intermediate, Verified 07/02/25 11:51) swelling buspirone (From BuSpar) Allergy (Mild, Verified 07/02/25 11:51) rash lamotrigine (From Lamictal) Allergy (Mild, Verified 07/02/25 11:51) Unknown naproxen Allergy (Unknown, Verified 07/02/25 11:51) anaphylaxis NSAIDS (Non-Steroidal Anti-Inflamma (NSAIDS (NON-STEROIDAL ANTI-INFLAMMA) Allergy (Unknown, Verified 07/02/25 11:51) ANAPHYLAXIS Penicillins (PENICILLINS) Allergy (Unknown, Verified 07/02/25 11:51) ANAPHYLAXIS methotrexate Allergy (Verified 07/02/25 11:51) Rash Medication List - Last Reconciled 07/09/25 by Bhavani Maguire, JUSTIN acetaminophen ER (Tylenol Arthritis Pain) 650 mg PO Q8H PRN albuterol sulfate 2.5 mg (3 mL) inhalation Q6-8H 30 days albuterol sulfate 90 mcg/actuation (Ventolin HFA) 2 puffs PO Q4-6H PRN baclofen 10 mg PO BID cholecalciferol (vitamin D3) 50 mcg PO DAILY 30 days dicyclomine 10 mg PO BID PRN diphenhydramine HCl (Laureen-Dryl) 25 mg PO TID PRN esomeprazole magnesium 40 mg PO BID furosemide (Lasix) 40 mg PO DAILY hydroxyzine HCl 10 mg PO QID PRN loperamide (Anti-Diarrheal (loperamide)) mg PO losartan 25 mg PO DAILY mirabegron ER (Myrbetriq) 25 mg PO QAM montelukast 10 mg PO BEDTIME ondansetron 4 mg PO Q8H PRN oxycodone 5 mg PO Q6H PRN rifaximin 550 mg PO BID 14 days sumatriptan succinate 50 mg orally once a day as needed; 30 days topiramate 50 mg PO BID valacyclovir (Valtrex) 1,000 mg PO DAILY varenicline tartrate 1 mg PO DAILY zolpidem ER 12.5 mg PO BEDTIME PRN HPI Comments Details: Zee is a 49-year-old female patient with a past medical history of asthma, constipation, GERD, snoring, and obesity who follows in the clinic for chronic migraine. She was most recently seen by 06/10/2025 at which time she reported an increase in her headaches and her topiramate was switched from 100mg at bedtime to 50mg twice daily. She was taking sumatriptan 50mg for abortive relief with some benefit. She tells me today that since switching her topiramate dosing to 50mg BID, she has not seen any improvement in her migraines. She has been awakening from sleep with headaches and feeling of being hungover. She awakens on average 4 days per week with a migraine type headache. These headaches are accompanied by nausea, light and sound sensitivity, and fatigue. When her pain is intense she has blurred vision. Her pain is frontal radiating to the occipital area R>L but typically unilateral. Pain is pounding and throbbing. When she has her migraines she needs to rest in a dark room and cannot carryout her day-to-day activities. She has some concerns about her house/environment as a factor for her headaches as she recently moved into her appartment and her boyfriend has also been experiencing headaches when he stays over as well. Sleep: Has a history of insomnia for which she takes amnien. She feels that she is a light sleeper and is awoken by many things during the night. She does note that she snores but has had a negative sleep study in the past. Sumatriptan at the 50mg dose has only been partially benefiial. [facility] Medical History GERD (gastroesophageal reflux disease) Asthma exacerbation Sinusitis Somnolence, daytime Snoring Morbid obesity Cough Asthma Allergic rhinitis Obesity (BMI 30-39.9) PCOS (polycystic ovarian syndrome) Vitamin D deficiency Surgical History History of bladder surgery Hx of dilation and curettage Hx of section Hx laparoscopic cholecystectomy Hx of tooth extraction Hx of hysterectomy Family History Father Heart disease Mother Diabetes mellitus Raynaud disease Paternal Grandfather Diabetes mellitus Paternal Uncle Diabetes mellitus Social History Household Members: Children Housing: House Do you presently have visiting nurse or other home services: No (appointment for SIGNAL INSPECTOR, in progress) Alcohol intake: current Alcohol intake frequency: holidays/special occasions only Alcohol type: wine Patient Tobacco Use Status: Former Tobacco user Tobacco use type: Cigarette Cigarettes Per Day: 0 Second Hand Smoke Exposure: No Substance Use Type: Marijuana Advance Directives Date on File: 01/12/22 service: No Current occupational status: unemployed Review of Systems Const All systems reviewed & are unremarkable except as noted in HPI and below Physical Exam Const General: cooperative, healthy appearing, comfortable and no acute distress Nutritional Appearance: well nourished Orientation/consciousness: patient oriented x3 Limitations: no limitations HEENT Head: Yes normal to inspection and Yes normocephalic Eyes General: appearance normal, both eyes and all related structures Visual Agosto: normal visual agosto by confrontation Alignment and Position: alignment normal Periorbital: periorbital findings normal Eyelids: Yes eyelids normal Conjunctivae: conjunctivae normal Sclerae: sclerae normal Neuro General: patient oriented x3 and tone normal Cranial nerves: Yes CN's II-XII intact bilaterally and Yes Facial sensation intact/muscles of mastication intact Gait exam (Neuro): Normal gait present Motor exam (neuro): no tremor noted Sensory Exam: double simultaneous stimulation for sensation normal Romberg Test: Negative Pupils: Normal pupillary reactivity/response: bilateral Psych Appearance: grossly normal Mental Status: mental status grossly normal Speech and movement: Normal speech and movement present and Clear speech present Affect: Labile affect present and Animated affect present Attitude: cooperative Thought process: Normal thought process present Thought content: Normal thought content present Insight: Good insight present (Psych) Judgement: Good judgement present (Psych) Assessment & Plan Assessment & Plan (1) Worsening headaches: Code(s): R51.9 - Headache, unspecified Category: Medical (2) Chronic migraine without aura without status migrainosus, not intractable: Code(s): G43.709 - Chronic migraine without aura, not intractable, without status migrainosus Category: Medical Plan Zee is a 49-year-old female patient with a past medical history of asthma, co nstipation, GERD, snoring, and obesity who follows in the clinic for chronic migraine. She has not had benefit with changing her topiramate dosing. She also has had worsening am headaches and some cognitive slowing. Her headaches have ramped up since moving to an new apartment and the heat coming on. I will test for carbon monoxide. I will also put her topiramate back to nightly dosing only d/t cognitive slowing, and eventually, I would like to taper this off completely. I will start her on once monthly Ajovy injections in efforts to better control her migraines and taper her off the topiramate. (cannot take propranolol due to history of asthma and can not take tricyclic antidepressants given concurrent use of other serotonin altering medications) She is only having partial relief with sumatriptan and therefore I will increase the dose from 50 mg to 100 mg. I think reasonably, we should consider repeating a sleep study in lab to rule out RACHANA given her reports of am headache, difficulty with concentration, and daytime somnolence. - Move topiramate back to 100mg at bedtime - Start Ajovy 225mg monthly (prior history of constipation will avoid Aimovig) - Increase sumatriptan to 100mg - Consider tapering down on topiramate r/t reports of cognitive slowing - Consider in-lab sleep study Orders: Orders Carbon Monoxide Today R51.9 - Headache, unspecified TSH reflex Free T4 Today R51.9 - Headache, unspecified Medications: New sumatriptan succinate take 1 tab at onset of headache; if no relief, may repeat 1 tab after at least 2 hrs; max = 2 tabs/24 hrs PO 14 tabs 3RF 30 days fremanezumab-vfrm (Ajovy) 225 mg (1.5 mL) subcut QMONTH 1.5 mL 5RF Changed From topiramate 50 mg PO BID 180 tabs 0RF To topiramate 100 mg (2 x 50 mg) PO BEDTIME 60 tabs 3RF 30 days Discontinued sumatriptan succinate Discontinued Reason: Doctor's Order 50 mg orally once a day as needed; 30 days 10 tabs 2RF Coding Level of Care Code Est Pt Level 4 (07628) Diagnoses Worsening headaches R51.9 Chronic migraine without aura without status migrainosus, not intractable G43.709
--- OUTSIDE RECORDS SUMMARY | 2025-07-09 13:49 | XMS_ITS | Encounter Summary ---
Author Organization [employer] Address 75 [facility] 7t [place] [address] Care Team Providers Care Prosthetic Assistant Name Role Phone Aaron Pisano MD Primary Care Provide r Reason for Visit * Reason Comments Med Refill Encounter Details Date Type Department Care Team ([facility] st Contact Info) Description 04/04/2025 Refill [facility] MEDICINE [address] [place] [address] Aaron Pisano MD [address] [place] [address] Chronic midline low back pain without sciatica [...] the past 12 months, has t he [employer], gas, oil or water company threatened to [...] Info) Description 07/29/2025 2:00 PM EST Telemedicine [facility] CHC MED & PEDS 505 [place] [address] Altagracia Mancilla, GRACIELA 505 [place] [address] 08/29/2025 12:45 PM EST Office Visit [facility] ADULT DENTAL [address] [place] [address] Zhanna Hernandez 10/03/2025 10:00 AM EST Office Visit [facility] MEDICINE [address] [place] [address] Aaron Pisano MD [address] [place] [address] documented as of this encounter Goals Goal [...] documented as of this encounter Care Teams Prosthetic Assistant Relationship Specialty Start Date End Date Aaron Pisano MD [address] [place] [address] PCP - General Internal Medicine 05/10/14 Antonietta Lim Curtain SupervisorEconomic Development Director 09/18/24 documented as of this encounter
--- OUTSIDE RECORDS SUMMARY | 2025-07-09 13:49 | XMS_ITS | Encounter Summary ---
Author Organization [employer] Address [address] [facility] 7 [place] [address] Care Team Providers Care Taper/Finisher Name Role Phone Aaron Pisano MD Primary Care Provide r Reason for Visit * Reason Onset Date Comments Med Refill 04/03/2025 Encounter Details Date Type Department Care Team ([facility] Contact Info) Description 04/03/2025 Telephone [facility] MEDICINE [address] [place] [address] Aaron Pisano MD 230 [place] [address] Med Refill Social History Tobacco Use Types [...] the past 12 months, has t he [employer], gas, oil or water company threatened to [...] immediate release tablet To be sent to: [facility] - [place], [place] - [address] [facility] documented in this encounter Plan of Treatment Upcoming Encounters Date Type Department Care Team (Late st Contact Info) Description 07/29/2025 2:00 PM EST Telemedicine [facility] CHC MED & PEDS 505 [place] [address] Altagracia Mancilla, GRACIELA 505 [place] [address] 08/29/2025 12:45 PM EST Office Visit [facility] ADULT DENTAL 230 [place] [address] Zhanna Hernandez 10/03/2025 10:00 AM EST Office Visit [facility] MEDICINE [address] [place], [place] [phone] Aaron Pisano MD 230 [place] [address] documented as of this encounter Goals Goal Patient Goal Type Associated Problems Recent Progress Patient-Stated? Author Blood Pressure < 140/90 Blood Pressure 130/83( 025 3:21 PM EDT) No Giovanna Bansk, PharmD documented as of this encounter Visit Diagnoses Not on filedocumented in this encounter Additional Health Concerns Assessment Noted Time PHQ-9 Depression Total Score: 2 06/05/20 24 8:38 AM EDT documented as of this encounter Care Teams Taper/Finisher Relationship Specialty Start Date End Date Aaron Pisano MD 230 [place] [address] PCP - General Internal Medicine 05/10/14 Antonietta Lim Calculus ProfessorPicture Painter 09/18/24 documented as of this encounter
--- OUTSIDE RECORDS SUMMARY | 2025-07-09 13:49 | XMS_ITS | Encounter Summary ---
Author Organization [employer] Address [address] [facility] 7 [place] [address] Care Team Providers Care Service Porter Name Role Phone Aaron Pisano MD Primary Care Provide r Reason for Visit * Reason Onset Date Comments Reschedule 03/01/2024 Encounter Details Date Type Department Care Team ([facility] Contact Info) Description 03/01/2024 Telephone [facility] MEDICINE 230 [place] [address] Aaron Pisano MD 230 [place] [address] Reschedule Social History Tobacco Use Types Packs/Day [...] a call back in order to r/s SURFACE PLATE INSPECTOR appt documented in this encounter Plan of Treatment Upcoming Encounters Date Type Department Care Team (Late st Contact Info) Description 07/29/2025 2:00 PM EST Telemedicine [facility] CHC MED & PEDS 505 [place] [address] Altagracia Mancilla, RN 505 [place] [address] 08/29/2025 12:45 PM EST Office Visit [facility] ADULT DENTAL 230 [place] [address] Zhanna Hernandez 10/03/2025 10:00 AM EST Office Visit [facility] MEDICINE 230 [place] [address] Aaron Pisano MD [address] [place] [address] documented as of this encounter Goals Goal [...] documented as of this encounter Care Teams Service Porter Relationship Specialty Start Date End Date Aaron Pisano MD 230 [place] [address] PCP - General Internal Medicine 05/10/14 Antonietta Lim It Systems ManagerSecurity Threat Analyst 09/18/24 documented as of this encounter
--- OUTSIDE RECORDS SUMMARY | 2025-07-09 13:49 | XMS_ITS | Encounter Summary ---
Author Organization [employer] Address [address] [place] [address] 7 [place] [address] Care Team Providers Care Spiritual Advisor Name Role Phone Aaron Pisano MD Primary Care Provide r Reason for Visit * Reason Onset Date Comments Med Refill 04/02/2025 Encounter Details Date Type Department Care Team ([facility] st Contact Info) Description 04/02/2025 Refill [facility] MEDICINE 230 [place] [address] Aaron Pisano MD 230 [place] [address] Diarrhea in adult patient Social History Tobacco [...] the past 12 months, has t he [employer], gas, oil or water company threatened to [...] Info) Description 07/29/2025 2:00 PM EST Telemedicine [facility] CHC MED & PEDS 505 [place] [address] Altagracia Mancilla, RN 505 [place] [address] 08/29/2025 12:45 PM EST Office Visit [facility] ADULT DENTAL 230 [place] [address] Zhanna Hernandez 10/03/2025 10:00 AM EST Office Visit [facility] MEDICINE 230 [place], [place] [phone] Aaron Pisano MD [address] [place] [address] documented as of this encounter Goals Goal [...] documented as of this encounter Care Teams Spiritual Advisor Relationship Specialty Start Date End Date Aaron Pisano MD 230 [place] [address] PCP - General Internal Medicine 05/10/14 Antonietta Lim Community Relations OfficerRug Weaver 09/18/24 documented as of this encounter
--- OUTSIDE RECORDS SUMMARY | 2025-07-09 13:49 | XMS_ITS | Encounter Summary ---
Author Organization [employer] Address [address] [place] [address] 7 [place] [address] Care Team Providers Care Supervisor Shearing Name Role Phone Aaron Pisano MD Primary Care Provide r Reason for Visit * Reason Comments Med Refill Encounter Details Date Type Department Care Team ([facility] st Contact Info) Description 10/08/2024 Refill [facility] MEDICINE 230 [place] [address] Aaron Pisano MD 230 [place] [address] Diarrhea in adult patient; Chronic midline low [...] the past 12 months, has t he [employer], gas, oil or water company threatened to [...] Info) Description 07/29/2025 2:00 PM EST Telemedicine [facility] CHC MED & PEDS 505 [place] [address] Altagracia Mancilla, RN 505 [place] [address] 08/29/2025 12:45 PM EST Office Visit [facility] ADULT DENTAL 230 [place] [address] Zhanna Hernandez 10/03/2025 10:00 AM EST Office Visit [facility] MEDICINE 230 [place] [address] Aaron Pisano MD [address] [place] [address] documented as of this encounter Goals Goal [...] as of this encounter Care Teams Supervisor Shearing Relationship Specialty Start Date End Date Aaron Pisano MD [address] [place] [address] PCP - General Internal Medicine 05/10/14 Antonietta Lim Senior Data AnalystContinuous Linter Drier Operator 09/18/24 documented as of this encounter
--- OUTSIDE RECORDS SUMMARY | 2025-07-09 13:49 | XMS_ITS | Encounter Summary ---
Author Organization [employer] Address [address] [place] [address] 7 [place] [address] Care Team Providers Care Nib Assembler Name Role Phone Aaron Pisano MD Primary Care Provide r Reason for Visit * Reason Onset Date Comments Med Refill 11/16/2022 Encounter Details Date Type Department Care Team ([facility] st Contact Info) Description 11/16/2022 Telephone [facility] MEDICINE [address] [place] [address] Aaron Pisano MD 230 [place] [address] Med Refill Social History Tobacco Use Types [...] MG immediate release tablet Please sent to [facility] - [place], [place] - [address] [place] [address] documented in this encounter Plan of Treatment Upcoming Encounters Date Type Department Care Team (Late st Contact Info) Description 07/29/2025 2:00 PM EST Telemedicine [facility] CHC MED & PEDS 505 [place] [address] Altagracia Mancilla, RN 505 [place] [address] 08/29/2025 12:45 PM EST Office Visit [facility] ADULT DENTAL 230 [place] [address] Zhanna Hernandez 10/03/2025 10:00 AM EST Office Visit [facility] MEDICINE 230 [place] [address] Aaron Pisano MD 230 [place] [address] documented as of this encounter Visit Diagnoses Not on filedocumented in this encounter Care Teams Nib Assembler Relationship Specialty Start Date End Date Aaron Pisano MD 230 [place] [address] PCP - General Internal Medicine 05/10/14 Antonietta Lim Lace InspectorBill Adjuster 09/18/24 documented as of this encounter
--- OUTSIDE RECORDS SUMMARY | 2025-07-09 13:49 | XMS_ITS | Encounter Summary ---
Author Organization [employer] Address [address] [facility] 7 [place] [address] Care Team Providers Care Upstairs Maid Name Role Phone Aaron Pisano MD Primary Care Provide r Reason for Visit * Reason Comments Med Refill Encounter Details Date Type Department Care Team ([facility] st Contact Info) Description 01/30/2024 Refill [facility] MEDICINE 230 [place] [address] Aaron Pisano MD 230 [place] [address] Chronic midline low back pain without sciatica [...] Info) Description 07/29/2025 2:00 PM EST Telemedicine [facility] CHC MED & PEDS 505 [place] [address] Altagracia Mancilla RN 505 [place] [address] 08/29/2025 12:45 PM EST Office Visit [facility] ADULT DENTAL [address] [place] [address] Zhanna Hernandez 10/03/2025 10:00 AM EST Office Visit [facility] MEDICINE 230 [place] [address] Aaron Pisano MD [address] [place] [address] documented as of this encounter Goals Goal [...] documented as of this encounter Care Teams Upstairs Maid Relationship Specialty Start Date End Date Aaron Pisano MD 230 [place] [address] PCP - General Internal Medicine 05/10/14 Antonietta Lim Newsstand VendorPr Internship 09/18/24 documented as of this encounter
--- OUTSIDE RECORDS SUMMARY | 2025-07-09 13:49 | XMS_ITS | Encounter Summary ---
Author Organization [employer] Address [address] [facility] 7 [place] [address] Care Team Providers Care Make Ready Mechanic Name Role Phone Aaron Pisano MD Primary Care Provide r Reason for Visit * Reason Onset Date Comments Med Refill 04/02/2025 Encounter Details Date Type Department Care Team ([facility] st Contact Info) Description 04/02/[address] [facility] MEDICINE 230 [place] [address] Aaron Pisano MD 230 [place] [address] Social History Tobacco Use Types Packs/Day Years [...] the past 12 months, has t he [employer], gas, oil or water company threatened to [...] Info) Description 07/29/2025 2:[address] [facility] CHC MED & PEDS 505 [place] [address] Altagracia Mancilla, GRACIELA 505 [place] [address] 08/29/2025 12:45 PM EST Office Visit [facility] ADULT DENTAL 230 [place] [address] Zhanna Hernandez 10/03/2025 10:00 AM EST Office Visit [facility] MEDICINE 230 [place] [address] Aaron Pisano MD [address] [place] [address] documented as of this encounter Goals Goal [...] documented as of this encounter Care Teams Make Ready Mechanic Relationship Specialty Start Date End Date Aaron Pisano MD [address] [place] [address] PCP - General Internal Medicine 05/10/14 Antonietta Lim Hospital CleanerYard Cleaner 09/18/24 documented as of this encounter
--- OUTSIDE RECORDS SUMMARY | 2025-07-09 13:49 | XMS_ITS | Encounter Summary ---
Author Organization [employer] Address [address] [place] [address] 7 [place] [address] Care Team Providers Care Journeyman Carpenter Name Role Phone Aaron Pisano MD Primary Care Provide r Reason for Visit * Reason Onset Date Comments Med Refill 11/16/2022 Encounter Details Date Type Department Care Team ([facility] st Contact Info) Description 11/16/2022 Telephone [facility] MEDICINE [address] [place] [address] Aaron Pisano MD 230 [place] [address] Med Refill Social History Tobacco Use Types [...] med refill status Please contact pt at [phone] * Telephone Encounter - Natasha Jain - 11/30/2022 1:14 PM EDT Tc from pt requesting medication status. Please contact pt at [phone] * Telephone Encounter - Jenny Smith - 11/16/2022 4:36 PM EDT Tc from pt requesting med refill for medication oxyCODONE (Roxicodone) 5 MG immediate release tablet. documented in this encounter Plan of Treatment Upcoming Encounters Date Type Department Care Team (Late st Contact Info) Description 07/29/2025 2:00 PM EST Telemedicine [facility] CHC MED & PEDS 505 [place] [address] Altagracia Mancilla, RN 505 [place] [address] 08/29/2025 12:45 PM EST Office Visit [facility] ADULT DENTAL [address] [place] [address] Zhanna Hernandez 10/03/2025 10:00 AM EST Office Visit [facility] MEDICINE 230 [place] [address] Aaron Pisano MD [address] [place] [address] documented as of this encounter Visit Diagnoses Not on filedocumented in this encounter Care Teams Journeyman Carpenter Relationship Specialty Start Date End Date Aaron Pisano MD [address] [place] [address] PCP - General Internal Medicine 05/10/14 Antonietta Lim Machine TailerPublishing Manager 09/18/24 documented as of this encounter
--- OUTSIDE RECORDS SUMMARY | 2025-07-09 13:49 | XMS_ITS | Encounter Summary ---
Author Organization [employer] Address [address] [place] [address] 7 [place] [address] Care Team Providers Care Spooler Operator Automatic Name Role Phone Aaron Pisano MD Primary Care Provide r Reason for Visit * Reason Onset Date Comments Med Refill 11/07/2024 Encounter Details Date Type Department Care Team (Late st Contact Info) Description 11/07/[address] [facility] MEDICINE 230 [place] [address] Aaron Pisano MD 230 [place] [address] Chronic midline low back pain without sciatica; [...] 2:00 PM EST Telemedicine [facility] CHC MED & PEDS 505 [place] [address] Altagracia Mancilla, RN 505 [place] [address] 08/29/2025 12:45 PM EST Office Visit [facility] ADULT DENTAL 230 [place] [address] Zhanna Heranndez 10/03/2025 10:00 AM EST Office Visit [facility] MEDICINE 230 [place] [address] Aaron Pisano MD 230 [place] [address] documented as of this encounter Goals Goal [...] documented as of this encounter Care Teams Spooler Operator Automatic Relationship Specialty Start Date End Date Aaron Pisano MD [address] [place] [address] PCP - General Internal Medicine 05/10/14 Antonietta Lim Bakery Team MemberMarine Fire Fighter 09/18/24 documented as of this encounter
--- OUTSIDE RECORDS SUMMARY | 2025-07-09 13:50 | XMS_ITS | Encounter Summary ---
Author Organization [employer] Address [address] [facility] 7t [place] [address] Care Team Providers Care Cement Tester Assistant Name Role Phone Aaron Pisano MD Primary Care Provide r Reason for Visit * Reason Comments Med Refill Encounter Details Date Type Department Care Team ([facility] st Contact Info) Description 03/05/2025 Refill [facility] MEDICINE 230 [place] [address] Aaron Pisano MD 230 [place] [address] Chronic midline low back pain without sciatica [...] the past 12 months, has t he [employer], gas, oil or water company threatened to [...] Info) Description 07/29/2025 2:00 PM EST Telemedicine [facility] CHC MED & PEDS 505 [place] [address] Altagracia Mancilla, GRACIELA 505 [place] [address] 08/29/2025 12:45 PM EST Office Visit [facility] ADULT DENTAL 230 [place] [address] Zhanna Hernandez 10/03/2025 10:00 AM EST Office Visit [facility] MEDICINE 230 [place] [address] Aaron Pisano MD [address] [place] [address] documented as of this encounter Goals Goal [...] documented as of this encounter Care Teams Cement Tester Assistant Relationship Specialty Start Date End Date Aaron Pisano MD 230 [place] [address] PCP - General Internal Medicine 05/10/14 Antonietta Lim Fixing CarpenterLand Planner 09/18/24 documented as of this encounter
--- OUTSIDE RECORDS SUMMARY | 2025-07-09 13:50 | XMS_ITS | Encounter Summary ---
Author Organization [employer] Address [address] [place] [address] [place], [place] [address] Care Team Providers Care Merchandise Support Associate Name Role Phone Aaron Pisano MD Primary Care Provide r Reason for Visit * Reason Comments Med Refill Encounter Details Date Type Department Care Team ([facility] Contact Info) Description 03/15/2023 Refill [facility] MEDICINE 230 [place] [address] Aaron Pisano MD [address] [place] [address] Smoker Social History Tobacco Use Types Packs/Day [...] Upcoming Encounters Date Type Department Care Team ([facility] Contact Info) Description 07/29/2025 2:00 PM EST Telemedicine [facility] CHC MED & PEDS 505 [place] [address] Altagracia Mancilla, RN 505 [place] [address] 08/29/2025 12:45 PM EST Office Visit [facility] ADULT DENTAL 230 [place] [address] Zhanna Hernandez 10/03/2025 10:00 AM EST Office Visit [facility] MEDICINE 230 [place] [address] Aaron Pisano MD [address] [place] [address] documented as of this encounter Visit Diagnoses Diagnosis Smoker Tobacco use disorder documented in this encounter Care Teams Merchandise Support Associate Relationship Specialty Start Date End Date Aaron Pisano MD 230 [place] [address] PCP - General Internal Medicine 05/10/14 Antonietta Lim Manager ReportAudit Control Clerk 09/18/24 documented as of this encounter
--- OUTSIDE RECORDS SUMMARY | 2025-07-09 13:50 | XMS_ITS | Encounter Summary ---
Author Organization [employer] Address [address] [place] [address] 7 [place] [address] Care Team Providers Care Raw Scales Operator Name Role Phone Aaron Pisano MD Primary Care Provide r Reason for Visit * Reason Onset Date Comments Med Refill 08/12/2024 Encounter Details Date Type Department Care Team ([facility] st Contact Info) Description 08/12/2024 Refill [facility] MEDICINE 230 [place] [address] Aaron Pisano MD [address] [place] [address] Social History Tobacco Use Types Packs/Day Years [...] 07/29/2025 2:00 PM EST Telemedicine [facility] CHC MED & PEDS 505 [place] [address] Altagracia Mancilla, RN 505 [place] [address] 08/29/2025 12:45 PM EST Office Visit [facility] ADULT DENTAL 230 [place] [address] Zhanna Hernandez 10/03/2025 10:00 AM EST Office Visit [facility] MEDICINE 230 [place] [address] Aaron Pisano MD 230 [place] [address] documented as of this encounter Goals Goal [...] documented as of this encounter Care Teams Raw Scales Operator Relationship Specialty Start Date End Date Aaron Pisano MD [address] [place] [address] PCP - General Internal Medicine 05/10/14 Antonietta Lim Electronic Design EngineerOutside Machinist 09/18/24 documented as of this encounter
--- OUTSIDE RECORDS SUMMARY | 2025-07-09 13:50 | XMS_ITS | Encounter Summary ---
Author Organization [employer] Address [address] [facility] 7 [place] [address] Care Team Providers Care User Experience Analyst Name Role Phone Aaron Pisano MD Primary Care Provide r Reason for Visit * Reason Onset Date Comments Med Refill 03/05/2025 Encounter Details Date Type Department Care Team ([facility] st Contact Info) Description 03/05/2025 Refill [facility] MEDICINE 230 [place] [address] Aaron Pisano MD 230 [place] [address] Chronic midline low back pain without sciatica [...] Info) Description 07/29/2025 2:00 PM EST Telemedicine [facility] CHC MED & PEDS 505 [place] [address] Altagracia Mancilla, RN [address] [place] [address] 08/29/2025 12:45 PM EST Office Visit [facility] ADULT DENTAL 230 [place] [address] Zhanna Hernandez 10/03/2025 10:00 AM EST Office Visit [facility] MEDICINE 230 [place], [place] [phone] Aaron Pisano MD 230 [place] [address] documented as of this encounter Goals Goal [...] documented as of this encounter Care Teams User Experience Analyst Relationship Specialty Start Date End Date Aaron Pisano MD [address] [place] [address] PCP - General Internal Medicine 05/10/14 Antonietta Lim Sr Technical Sales ConsultantResidential Roofer 09/18/24 documented as of this encounter
--- OUTSIDE RECORDS SUMMARY | 2025-07-09 13:50 | XMS_ITS | Clinical Summary ---
Author Organization [facility] Address [facility] [place] [address] Care Team Providers Care Card Lacer Name Role Phone None Primary Care Provider [...] Influenza standard series) 04/08/2025 Insurance MEDICAID MANAGED [place] Care Teams Card Lacer Relationship Specialty Start Date End Date None None PCP - General 02/10/20
--- OUTSIDE RECORDS SUMMARY | 2025-07-09 13:50 | XMS_ITS | Encounter Summary ---
Author Organization [employer] Address [address] [place] [address] 7 [place] [address] Care Team Providers Care Molder Setter Name Role Phone Aaron Pisano MD Primary Care Provide r Reason for Visit * Reason Onset Date Comments Med Refill 08/24/2022 Encounter Details Date Type Department Care Team ([facility] st Contact Info) Description 08/24/2022 Telephone [facility] MEDICINE [address] [place] [address] Aaron Pisano MD 230 [place] [address] Med Refill Social History Tobacco Use Types [...] Info) Description 07/29/2025 2:00 PM EST Telemedicine [facility] CHC MED & PEDS 505 [place] [address] Altagracia Mancilla, RN 505 [place] [address] 08/29/2025 12:45 PM EST Office Visit [facility] ADULT DENTAL 230 [place] [address] Zhanna Hernandez 10/03/2025 10:00 AM EST Office Visit [facility] MEDICINE 230 [place] [address] Aaron Pisano MD [address] [place] [address] documented as of this encounter Visit Diagnoses Not on filedocumented in this encounter Care Teams Molder Setter Relationship Specialty Start Date End Date Aaron Pisano MD [address] [place] [address] PCP - General Internal Medicine 05/10/14 Antonietta Lim Pouch Making Machine OperatorMaintenance Groundman 09/18/24 documented as of this encounter
--- OUTSIDE RECORDS SUMMARY | 2025-07-09 13:50 | XMS_ITS | Encounter Summary ---
Author Organization [email or web address] Address 75 [facility] 7 [place] [address] Care Team Providers Care Radio Division Captain Name Role Phone Aaron Pisano MD Primary Care Provide r Reason for Visit * Reason Comments Med Refill Encounter Details Date Type Department Care Team ([facility] st Contact Info) Description 08/09/2023 Refill [facility] MEDICINE 230 [place] [address] Suim Vang, ANP 230 [place] [address] Chronic midline low back pain without sciatica [...] Description 07/29/2025 2:00 PM EST Telemedicine [facility] CHC MED & PEDS 505 [place] [address] Altagracia Mancilla RN 505 [place] [address] 08/29/2025 12:45 PM EST Office Visit [facility] ADULT DENTAL 230 [place] [address] Zhanna Hernandez 10/03/2025 10:00 AM EST Office Visit [facility] MEDICINE [address] [place] [address] Aaron Pisano MD 230 [place] [address] documented as of this encounter Goals Goal Patient Goal Type Associated Problems Recent Progress Patient-Stated? Author Blood Pressure < 140/90 Blood Pressure 130/83( 025 3:21 PM EDT) No Giovanna Banks, PharmD documented as of this encounter Visit Diagnoses Diagnosis Chronic midline low back pain without sciatica documented in this encounter Care Teams Radio Division Captain Relationship Specialty Start Date End Date Aaron Pisano MD 230 [place] [address] PCP - General Internal Medicine 05/10/14 Antonietta Lim Rn Medical Inpatient ServicesLicensed Practical Nurse Instructor 09/18/24 documented as of this encounter
--- OUTSIDE RECORDS SUMMARY | 2025-07-09 13:50 | XMS_ITS | Encounter Summary ---
Author Organization [employer] Address [address] [place] [address] 7 [place] [address] Care Team Providers Care Salesperson Automobiles Name Role Phone Aaron Pisano MD Primary Care Provide r Reason for Visit * Reason Onset Date Comments Med Refill 04/04/2023 Encounter Details Date Type Department Care Team ([facility] st Contact Info) Description 04/04/2023 Telephone [facility] MEDICINE [address] [place] [address] Araon Pisano MD [address] [place] [address] Med Refill Social History Tobacco Use Types [...] Info) Description 07/29/2025 2:00 PM EST Telemedicine [facility] CH[facility] MED & PEDS [address] [place] [address] Altagracia Mancilla, RN [address] [place], [place] 08/29/2025 12:45 PM EST Office Visit [facility] ADULT DENTAL [address] [place] [address] Zhanna Hernandez 10/03/2025 10:00 AM EST Office Visit [facility] MEDICINE [address] [place], [place] [id number] Aaron Pisano MD [address] [place] [address] documented as of this encounter Goals Goal Patient Goal Type Associated Problems Recent Progress Patient-Stated? Author Blood Pressure < 140/90 Blood Pressure 130/83( 025 3:21 PM EDT) No Giovanna Banks, PharmD documented as of this encounter Visit Diagnoses Not on filedocumented in this encounter Care Teams Salesperson Automobiles Relationship Specialty Start Date End Date Aaron Pisano MD [address] [place], [place] [phone] PCP - General Internal Medicine 05/10/14 Antonietta Lim Back Feeder [employer] LineTap And Die Maker Technician 09/18/24 documented as of this encounter
--- OUTSIDE RECORDS SUMMARY | 2025-07-09 13:50 | XMS_ITS | Encounter Summary ---
Author Organization [employer] Address [address] [place] [address] 7 [place] [address] Care Team Providers Care District Plant Engineer Name Role Phone Aaron Pisano MD Primary Care Provide r Encounter Details Date Type Department Care Team (Latest Contact Info) Description 07/16/2019 Abstract [facility] CONVERSIONS Dental, Provider, DDS Social History [...] Info) Description 07/29/2025 2:00 PM EST Telemedicine [facility] MED & PEDS [address] [place] [address] Altagracia Mancilla, GRACIELA [address] [place] [address] 08/29/2025 12:45 PM EST Office Visit [facility] ADULT DENTAL [address] [place] [id number] Zhanna Hernandez 10/03/2025 10:00 AM EST Office Visit [facility] MEDICINE [address] [place] [id number] Aaron Pisano MD [address] [place] [id number] documented as of this encounter Visit Diagnoses Not on filedocumented in this encounter Care Teams District Plant Engineer Relationship Specialty Start Date End Date Aaron Pisano MD [address] [place] [id number] PCP - General Internal Medicine 05/10/14 Antonietta Lim EyeletterIndustrial Engineering Analyst 09/18/24 documented as of this encounter
--- OUTSIDE RECORDS SUMMARY | 2025-07-09 13:50 | XMS_ITS | Clinical Summary ---
Author Organization [employer] Address [address] [place] [address] 7[address] [place] [address] Care Team Providers Care Baby Formula Worker Name Role Phone Aaron Pisano MD [...] BY MOUTH EVERY MORNING 28 tablet 5 5 5:43 PM EST 03/11/20 25 Active chlorhexidine (Peridex) 0.12 % [...] UP TO 7 DAYS 20 tablet 05/02/20 Active D3 Super Strength 50 MCG (1999 UT) capsuleIndica tions:Seasona l [...] BY MOUTH EVERY MORNING 90 tablet 1 5 5:43 PM EST 06/20/20 Active baclofen (Lioresal) 10 MG tabletIndicat ions:Chronic bilateral low back pain without sciatica TAKE 1 TABLET BY MOUTH TWICE DAILY IN THE MORNING AND IN THE EVENING NEEDED FOR MUSCLE SPASMS 60 tablet 1 5 5:43 PM EST 07/02/20 Active diphenhydrAMI NE (Laureen-Dryl) 25 MG tabletIndicat ions:Intracta ble vomiting with nausea TAKE 1 TABLET BY MOUTH THREE TIMES DAILY BEFORE FOOD NEEDED FOR NAUSEA AND VOMITING 90 tablet 1 5 5:43 PM EST 07/02/20 Active oxyCODONE (Roxicodone) 5 MG immediate release tabletIndicat ions:Chronic midline low back pain without sciatica Take 1 tablet (5 mg) by mouth every 12 (twelve) hours if needed for severe pain. 56 tablet 5 5:43 PM EST 07/02/20 Active cetirizine (ZyrTEC) 10 MG tabletIndicat ions:Seasonal [...] NEEDED FOR SEVERE PAIN 56 tablet 06/04/20 025 Discontinued(R eorder (will not trigger notification [...] compliance, counseled about weight loss. 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 She is under the care of Ride Attendant Dr. Reagan Alfaro last note 25 He recommended to: Monitor given that There is no serological evidence of systemic vasculitis. If she has a recurrence within the next year I think it would warrant immunosuppressive treatment at that time. 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 She is under the care of Ride Attendant Dr Newberry. She is on Prednisone 2 [...] psychotherapist and a psychiatrist Dr. Gregory. At [facility] Pt is on: Hydroxyzine, Ambien, Assessment [...] most recently seen by Dr Rodas at [facility] 06/15/2024 who recommended PRN [...] Gabapentin 300 mg po TID Severe obesity ([facility]/HCC) 07/12/2013 Assessment & Plan (07/02/2025 9:21 AM EST): Previously referred to [facility] Comprehensive weight management program. Seen twice, they prompter to discuss with her mental health provider her eating habits before they would consider accepting her into the program. Pt would like to discuss GLP1s for weight loss next time she comes in Assessment & Plan (08/23/2023 1:51 PM EST): Previously referred to [facility] Comprehensive weight management program. Seen twice, they prompter to discuss with her mental health provider her eating habits before they would consider accepting her into the program Assessment & Plan (12/30/2022 3:28 PM EDT): Previously referred to [facility] Comprehensive weight management program Assessment & Plan (08/03/2022 1:48 PM EST): Referred to [facility] Comprehensive weight management program [...] EST): Under the care of Dr James Investment Banking Manager , last seen 05/30/2025 No recent exacerbations Overactive bladder 01/20/2012 Polycystic ovarian syndrome 01/20/2012 Assessment & Plan (08/03/2022 9:18 AM EST): Seen in the past by an City Magistrate (Dr. Dozier) Under the care of Clare Carlin The last US on record done at [facility] 01/2019 showed a hypoechoic well [...] Encounters Date Type Department Care Team Description 07/09/2025 Orders Only GENERIC EXTERNAL DATA DEPARTMENT Provider, Generic External Data 07/02/2025 9:00 AM EST Telemedicine [facility] [address] [place] [address] Aaron Pisano MD Chronic midline low back pain without sciatica (Primary Dx); Mild intermittent asthma without complication; Severe obesity (CMS/HCC) (HCC); Migraine without aura and without status migrainosus, not intractable; Chronic bilateral low back pain without sciatica; Intractable vomiting with nausea 07/02/2025 Travel 07/01/2025 Refill [facility] [address] [facility] [place] [address] Aaron Pisano MD Chronic bilateral low back pain without sciatica; Chronic midline low back pain without sciatica; Intractable vomiting with nausea 06/26/2025 Travel 06/19/2025 Refill [facility] [address] [place] [address] Aaron Pisano MD Seasonal allergies 06/11/2025 Patient Outreach [facility] [address] [facility] [place] [address] Aaron Pisano MD Care Coordination (CHW outreach for SDOH PT-1 and food needs-referral completed /) 06/11/2025 Telephone [facility] [address] [facility] [place] [address] Aaron Pisano MD PT-1 06/04/2025 Refill [facility] [address] [facility] [place] [address] Aaron Pisano MD Cough in adult patient 06/03/2025 Refill [facility] [address] [place] [address] Aaron Pisano MD Chronic midline low back pain without sciatica 06/03/2025 Telephone [facility] [address] [facility] [place] [address] Aaron Pisano MD Med Refill 06/03/2025 Refill [facility] [address] [facility] [place] [address] Aaron Pisano MD Chronic midline low back pain without sciatica 05/31/2025 11:30 AM EDT Clinical Support [facility] [address] [facility] [place] [address] Altagracia Mancilla RN Chronic midline low back pain without sciatica (Primary Dx) 05/31/2025 Travel 05/24/2025 Refill [facility] [address] [place] [address] Miki Sarkar DDS 05/24/2025 Travel 05/24/2025 Patient Outreach [facility] [address] [place] [address] Aaron Pisano MD Care Coordination (CHW outreach for SDOH PT-1 and food needs-referral completed /) 05/24/2025 Telephone [facility] [address] [place] [phone] Aaron Pisano MD Pt-1 05/15/2025 Patient Outreach [facility] [address] [place] [address] Aaron Pisano MD Care Coordination (CHW outreach for SDOH PT-1 and food needs-referral completed /) 05/15/2025 Telephone [facility] [address] [place] [phone] Aaron Pisano MD PT-1 05/09/2025 Refill [facility] [address] [place] [address] Aaron Pisano MD Seasonal allergies 05/08/2025 3:00 PM EDT Office Visit [facility] [address] [place] [address] Rodo Bocanegra MD Fatigue, unspecified type (Primary Dx); Fever and chills 05/08/2025 11:00 AM EDT Office Visit [facility] [address] [place] [address] Miki Sarkar DDS Excessive attrition of teeth (Primary Dx) 05/08/2025 Orders Only GENERIC EXTERNAL DATA DEPARTMENT Provider, Generic External Data 05/08/2025 Travel 05/03/2025 Orders Only [facility] External Provider, [facility] 05/02/2025 Refill [facility] [address] [place], [place] [phone] Aaron Pisano MD Chronic midline low back pain without sciatica 05/02/2025 Refill [facility] [address] [place], [place] [phone] Aaron Pisano MD Chronic midline low back pain without sciatica 05/01/2025 Refill [facility] [address] [place] [address] Aaron Pisano MD 05/01/2025 Refill [facility] [address] [place] [address] Aaron Pisano MD Diarrhea in adult patient 05/01/2025 Travel 04/21/2025 Refill [facility] [address] [place] [address] Aaron Pisano MD Chronic bilateral low back pain without sciatica; Intractable vomiting with nausea 04/11/2025 Refill [facility] [address] [place] [address] Aaron Pisano MD 04/10/2025 Travel 04/10/2025 Telephone [facility] [address] [place] [address] Altagracia Mancilla RN 04/09/2025 11:15 AM EDT Office Visit [facility] [address] [place] [address] Aaron Pisano MD Primary hypertension (Primary Dx); COVID-19; Mild intermittent asthma without complication; Vasculitis (CMS/HCC); Leukocytoclastic vasculitis (CMS/HCC); Routine health maintenance; Acute cough 04/09/2025 Telephone [facility] [address] [place] [address] Aaron Pisano MD Appointment Request 04/09/2025 Travel from Last 3 Months Immunizations Immunization [...] [facility] [address] [place] [address] Altagracia Mancilla, GRACIELA [address] [place] [address] 08/29/2025 12:45 PM EST Office Visit [facility] [address] [place] [address] Zhanna Hernandez 10/03/2025 10:00 AM EST Office Visit [facility] [address] [place] [address] Aaron Pisano MD [address] [place] [address] Health Maintenance Due Date Last Done Comments CT Colonography 1977 FIT DNA/Cologuard 1977 FIT 1977 FOBT 1977 Sigmoidoscopy 1977 Alcohol/Substance Use Screening 1989 Family Planning (PISQ) 1992 Pap Smear 1998 Cervical Cancer Screening 2007 HPV/Cotest 2007 Dental X-Ray: Bitewings 01/24/2025 01/24/2024, 11/30 COVID-19 Vaccine ( season) 2025 11/15/2020 Influenza Vaccine (#1) 2025 Depression Screening 06/05/2025 06/05/2024, 06/05/20 24 Dental [...] Name Priority Date/Time Associated Diagnosis Comments POCT CARBON MONOXIDE Routine 07/09/2025 1:07 PM EST TSH W/REFLEX TO FT4 Routine 07/09/2025 1 :07 PM EST AMB REFERRAL TO INFECTIOUS DISEASE Routine 06/11/2025 [...] Relevant to Health Maintenance Results * POCT Carbon Monoxide (07/09/2025 1:07 PM EST) Carbon Monoxide POC 2.5 % [facility] Comment:CARBON MONOXIDE REFE RENCE RANGE: NON SMOKERS: LESS THAN 2.0% SMOKERS: 2.0 - 9.0%Note:Therapeutic levels of Hydroxocobalamin (1 mg/mL and 2 mg/mL)may interfere with carboxyhemoglobin causing lower thanexpected values. A negative interference withcarboxyhemoglobin has the potential to alter the medicalassessment of the patient and may withhold necessaryfollow-up treatment in response to elevatedcarboxyhemoglobin levels. 07/09/2025 1:07 PM EST 07/09/2025 1:16 PM EST us Generic External Data Provider LAB POINT OF CARE TEST DOCKED DEVICE ORDERABLES Final Result [facility] [address] [place] [phone] * TSH with Reflex to Free T4 (07/09/2025 1:07 PM EST) Only the most recent of3 resultswithin the time period is included. TSH reflex Free T4 4.00 0.32 - 4.0 uIU/mL [facility] 07/09/2025 1:07 PM EST 07/09/2025 1:07 PM EST us Generic External Data Provider LAB BLOOD ORDERAB LES Final Result [facility] [address] [place] [address] [phone] * Referral to Infectious Disease (06/11/2025) Rodo [...] - 05/31/2025 11:41 AM EDT .UTOX cup Lot#[id number] Exp. 05/14/26 Internal Pass Control Aaron Harris MD POINT OF CARE TEST EN TER/EDIT ORDERABLES Final Result * Vitamin D, 25-Hydroxy, Total, Immunoassay (05/30/2025 1:22 PM EDT) Only the most recent of2 resultswithin the time period is included. Vitamin D 25-OH Total 49.9 >30 ng/mL [facility] Comment: Health Based Reference Values*< 20 ng/mL [id number] ng/mL Insufficient> 30 ng/mL Sufficient*Cielo TINEO. N [...] MD LAB BLOOD ORDERABLES Final Resul t [facility] [address] [place] [phone] * ANCA Vasculitides (05/08/2025 12:41 PM EDT) Myeloperoxidase Antibody <1.0 [facility] Comment:Value Interpretation ----- <1.0 No Antibody Detected > or = 1.0 Antibody DetectedAutoantibodies to myeloperoxidase (MPO) are commonlyassociated with the following small-vesselvasculitides: microscopic polyangiitis,polyarteritis nodosa, Churg-Chen syndrome,necrotizing and crescentic glomerulonephritis andoccasionally granulomatosis with polyangiitis(GPA, Marissa's). The perinuclear IFA pattern,(p-ANCA) is based largely on autoantibody tomyeloperoxidase which serves as the primary antigen.These autoantibodies are present in active disease. Proteinase-3 Antibody <1.0 [facility] Comment:Value Interpretation ----- <1.0 No Antibody Detected > or = 1.0 Antibody DetectedAutoantibodies to proteinase-3 (WI-3) are accepted ascharacteristic for granulomatosis with polyangiitis(GPA, Marissa's), and are detectable in 95% of thehistologically proven cases. The cytoplasmic IFApattern, (c-ANCA), is based largely on autoantibody toPR-3 which serves as the primary antigen.These autoantibodies are present in active disease.THIS TEST WAS PERFORMED AT:[employer] [place] [id number] REDMOND MD 05/08/2025 12:4 1 PM EDT 05/08/2025 4:00 PM EDT us Generic External Data Provider LAB BLOOD ORDERAB LES Final Result [facility] [address] [place] [address] [phone] * (ABNORMAL) CBC auto differential (05/08/2025 12:41 PM EDT) Only the most recent of3 resultswithin the time period is included. White Blood Count 11.7(H) 4.8 - 10.8 X10*3/uL [facility] Red Blood Count 4.88 4.20 - 5.50 X10*6/uL [facility] Hemoglobin 13.4 12.0 - 16.0 g/dl [facility] Hematocrit 40.0 37.0 - 47.0 % [facility] Mean Corpuscular Volume 82.0 80.0 - 98.0 fL [facility] Mean Corpuscular Hemoglobin 27.5 27.0 - 33.0 pg [facility] Mean Corpuscular HGB Conc 33.5 31.0 - 35.0 g/dl [facility] Red Cell Distribution Width 15.2 11.0 - 16.0 % [facility] Platelet Count 338 160 - 400 X10*3/uL [facility] Mean Platelet Volume 10.1 9.4 - 12.3 fL [facility] Neutrophils Percent Auto 67.7 45 - 73 % [facility] Imm Gran Pct Auto 0.5(H) 0.0 - 0.4 % [facility] Lymphocytes Percent Auto 20.4 20 - 40 % [facility] Monocytes Percent Auto 6.9 2 - 11 % [facility] Eosinophils Percent Auto 3.2 0 - 4 % [facility] Basophils Percent Auto 1.3 0 - 2 % [facility] NRBC Pct Auto 0.0 0.0 - 0.2 /100WBC [facility] Neutrophils Absolute Auto 7.9 2.0 - 8.3 x10*3/uL [facility] Imm Gran Abs Auto 0.06(H) 0.00 - 0.03 X10*3/uL [facility] Lymphocytes Absolute Auto 2.4 1.2 - 4.9 X10*3/uL [facility] Monocytes Absolute Auto 0.8 0.1 - 1.2 X10*3/uL [facility] Eosinophils Absolute Auto 0.4 0.0 - 0.4 X10*3/uL [facility] Basophils Absolute Auto 0.2 0.0 - 0.2 X10*3/uL [facility] NRBC Abs Auto 0.000 0.0 - 0.012 X10*3/uL [facility] 05/08/2025 12:4 1 PM EDT 05/08/2025 4:00 PM EDT us Generic External Data Provider LAB BLOOD ORDERAB LES Final Result [facility] [address] [place] [phone] * Cryoglobulin (% Cryocrit), Serum (05/08/2025 12:41 PM EDT) Cryoglobulin, Ql, Serum, Rflx Negative Negative [facility] Comment:The Cryocrit is prim arily intended for following apatient with previously defined and quantitatedcryoglobulins. The cryocrit may consist ofcryoglobulins, fibrins, complement, or mixtures ofthese.THIS TEST WAS PERFORMED AT:[employer] [id number] [place] [phone] W. MASON,MD,PHD % Cryocrit [facility] 05/08/2025 12:4 1 PM EDT 05/08/2025 4:00 PM EDT us Generic External Data Provider LAB BLOOD ORDERAB LES Final Result Performing Organization Address [facility] Co de Phone Number [facility] [address] [place] [phone] * (ABNORMAL) Sed Rate by Modified Leoren (05/08/2025 12:41 PM EDT) Erythrocyte Sedimentation Rate 38(H) 0 - 20 MM/HR [facility] Comment:Patients with polycy themia and many hemoglobin abnormalitiesmay have depressed sed rates whereas patients with anemiamay have elevated sed rates. 05/08/2025 12:4 1 PM EDT 05/08/2025 4:00 PM EDT us Generic External Data Provider LAB BLOOD ORDERAB LES Final Result Performing Organization Address [facility] Co de Phone Number [facility] [address] [place] [phone] * (ABNORMAL) C-reactive Protein (05/08/2025 12:41 PM EDT) Only the most recent of2 resultswithin the time period is included. C Reactive Protein 2.00(H) < or = 0.50 mg/dL [facility] 05/08/2025 12:4 1 PM EDT 05/08/2025 4:00 PM EDT us Generic External Data Provider LAB BLOOD ORDERAB LES Final Result Performing Organization Address [facility]/ZIP Co de Phone Number [facility] [address] [place] [phone] * Comprehensive Metabolic Panel (05/08/2025 12:41 PM EDT) Only the most recent of3 resultswithin the time period is included. Sodium 142 135 - 145 mmol/L [facility] Potassium 3.3 3.3 - 5.1 mmol/L [facility] Chloride 103 96 - 108 mmol/L [facility] Carbon Dioxide 29 22 - 29 mmol/L [facility] Anion Gap 13 12 - 20 [facility] Urea Nitrogen (BUN) 16 9 - 16 mg/dL [facility] Creatinine, Serum 0.98 0.5 - 1.4 mg/dL [facility] Estimated Glomerular Filt Rate >60 [facility] Comment:Chronic Kidney Disea se: Estimated GFR < 60 mL/min/1.13t8Rgitny Kidney Disease: Estimated GFR < 15 mL/min/1.73m2 Glucose 98 60 - 115 mg/dL [facility] Calcium 9.7 8.4 - 10.2 mg/dL [facility] Bilirubin, Total 0.4 0.0 - 1.0 mg/dL [facility] Aspartate Amino Transferase 22 5 - 31 U/L [facility] Alanine Aminotransferase 18 0 - 31 U/L [facility] Total Protein 7.8 6.5 - 8.0 g/dL [facility] Albumin Level 4.5 3.5 - 5.0 g/dL [facility] Alkaline Phosphatase 101 39 - 117 U/L [facility] 05/08/2025 12:4 1 PM EDT 05/08/2025 4:00 PM EDT us Generic External Data Provider LAB BLOOD ORDERAB LES Final Result [facility] [address] [place] [address] [phone] * CT Sinus w/o Contrast (05/03/2025 4:22 PM EDT) Anatomical Region Laterality Modality Computed Tomogra phy 05/03/2025 4:22 PM EDT Narrative 05/03/2025 5:14 PM EDT [address] [address] [address] Scan Report Signed Patient: Zee Villanueva MR#: [id number] : 1975 Acct:[id number] Age/Sex: 49 / F ADM Date: 05/03/25 Loc: HO.CT Attending Dr: Kerry James MD Ordering Physician: Kerry James MD Date of Service: 05/03/25 Procedure(s): CT sinus wo IV con Accession Number(s): [id number] cc: Kerry James MD; Aaron Carcamo MD Report Number: [id number]: Total DLP = 92.00 mGy-cm Reason for [...] 05/03/25 1711 DD/ 1622 TD/TT: 05/03/25 1640 Rug Hooker: Procedure Note Donotuseinterpreter, Image - 05/03/[address] [address] [address] Scan Report Signed Patient: Zee Villanueva#: [id number] : 1975Acct:[id number] Age/Sex: 49 / FADM Date: 05/03/25 Loc: HO.CT Attending Dr: Kerry James MD Ordering Physician: Kerry James MD Date of Service: 05/03/25 Procedure(s): CT sinus wo IV con Accession Number(s): [id number] cc: Kerry James MD; Aaron Carcamo MD Report Number: [id number]: Total DLP = 92.00 mGy-cm Reason for [...] 05/03/25 1711 DD/ 1622 TD/TT: 05/03/25 1640 Rug Hooker: [facility] External Provider IMG CT PROCEDURES Final Result * POCT Influenza A manually resulted (04/09/2025 1:41 PM EDT) Rapid Influenza A Ag Negative Negative, Indeterminate QC Media Lot # [id number] Lot# Expiration Date ,324,722 Swab Nasopharyngeal structure / Unknown 04/09/2025 1:41 PM EDT Aaron Harris MD POINT OF CARE TEST EN TER/EDIT ORDERABLES Final Result * POCT Influenza B manually resulted (04/09/2025 1:40 PM EDT) [facility] Rapid Influenza B Ag Negative Negative, Indeterminate QC Media Lot # [id number] Lot# Expiration Date ,026 Swab 04/09/2025 1:40 PM EDT Aaron Harris MD POINT OF CARE TEST EN TER/EDIT ORDERABLES Final Result * POCT Rapid COVID Ag (04/09/2025 1:39 PM EDT) [facility] Rapid COVID Ag Positive QC Media Lot # [id number] Lot# Expiration Date , Swab 04/09/2025 1:39 PM EDT Aaron Harris MD POINT OF CARE TEST EN TER/EDIT ORDERABLES Final Result * POCT rapid strep A manually resulted (04/09/2025 1:27 PM EDT) [facility] Rapid Strep A Screen Negative Negative, None Detected QC Media Lot # [id number] Lot# Expiration Date [id number] Swab 04/09/2025 1:27 PM EDT Aaron Harris MD POINT OF CARE TEST EN TER/EDIT ORDERABLES Final Result * BI Mammogram Screening Tomosynthesis Bilateral (02/20/2025 2:30 PM EDT) Anatomical Region Laterality Modality Breast Bilateral Mammography 02/20/2025 2:30 PM EDT Narrative 03/01/2025 8:13 PM EDT [facility] [address] [place] [address] Mammography Report Signed Patient: Zee Villanueva MR#: [id number] : 1975 Acct:[id number] Age/Sex: 49 / F ADM Date: 02/20/25 Loc: [facility] Attending Dr: Aaron Carcamo MD Ordering Physician: Aaron Carcamo MD Resu lts: 1Negative Date of Service: 02/20/25 Follow Up: 1 Year From Orig inal Mammogram Procedure(s): MM tomosynthesis screening BI Accession Number(s): [id number] cc: Aaron Carcamo MD EXAMINATION: MM SCREENING [...] OV> 03/01/252009 DD/ 1430 TD/TT: 02/20/25 1510 Rug Hooker: Procedure Note Donotuseinterpreter, Image - 03/01/2025 [facility] [address] [place] [address] Dr. [place], [place] [address] Mammography Report Signed Patient: Zee Villanueva AMR#: [id number] : 1975Acct:[id number] Age/Sex: 49 / FADM Date: 02/20/25 Loc: HO.MAMMO Attending Dr: Aaron Carcamo MD Ordering Physician: Aaron Carcamo MDResu lts: 1Negative Date of Service: 02/20/25Follow Up: 1 Year From Orig inal Mammogram Procedure(s): MM tomosynthesis screening BI Accession Number(s): [id number] cc: Aaron Carcamo MD EXAMINATION: MM SCREENING [...] OV> 03/01/252009 DD/ 1430 TD/TT: 02/20/25 1510 Rug Hooker: us Aaron Harris MD IMG BI PROCEDURES Satya lauren Result - Final * Hepatitis Panel, General (12/28/2024 2:24 PM EDT) Hepatitis A IgM Nonreactive Nonreactive [facility] Comment:IgM antibodies to LUTHER V not detected; does not exclude earlyacute or recovered HAV infection. ~Hepatitis B Surface Antibody NONREACTIVE Nonreactive [facility] Comment:Nonreactive: < 8.00 mIU/mL Hepatitis B Core Antibody Nonreactive Nonreactive [facility] Hepatitis C Antibody Nonreactive Nonreactive [facility] Comment:Antibodies to HCV no t detected; does not exclude early acuteHCV infection. Hepatitis B Surface Ag Negative Negative [facility] 12/28/2024 2:24 PM EDT 12/28/2024 2:26 PM EDT us Generic External Data Provider LAB BLOOD ORDERAB LES Final Result [facility] [address] [place] [address] [phone] * (ABNORMAL) Lipid Panel, Standard (12/28/2024 2:24 PM EDT) Triglycerides 138 <150 mg/dL [facility] Comment:Desirable Triglyceri de: less than 150 mg/dLBorderline High Triglyceride 150-199 mg/dLHigh Triglyceride: 200-499 mg/dLVery High Triglyceride: greater than or equal to 5OO mg/dL Cholesterol 199 <200 mg/dL [facility] Comment:Desirable Cholestero l: less than 200 mg/dLBorderline High Cholesterol: 200-239 mg/dLHigh Cholesterol: greater than 239 mg/dL LDL Cholesterol Calculated 121(H) <100 mg/dL [facility] Comment:Desirable LDL: less than 100 mg/dLNear Optimal/Above Optimal LDL: 110- 129 mg/dLBorderline High LDL: 130-159 mg/dLHigh LDL: 160-189 mg/dLVery High LDL: greater than or equal to 190 mg/dL HDL Cholesterol 51 >40 mg/dL [facility] Comment:Desirable HDL: great er than 40 mg/dL Note: This HDL assay may give artificially low results in patients with liver disease. Blood Venous blood specimen / Unknown 12/28/2024 2:24 PM EDT 12/28/2024 2:26 PM EDT Aaron Harris MD LAB BLOOD ORDERABLES Final Result [facility] [address] [place] [address] [phone] * HIV AB/AG (02/26/2020 1:03 PM EDT) [facility] HIV AG/AB NONREACTIVE NR FOUNDATI ON [...] of detection of this assay. The [employer] HIV Ag/Ab Combo assay result and supplemental assay results should be interpreted in conjunction with the patient's clinical presentation, history and other laboratory results. If the results are inconsistent with clinical evidence, additional testing is suggested to confirm the result. 02/26/2020 1:03 PM EDT Aaron Harris MD HISTORICAL/NON ORDERA BLE LABS Final Result [facility] [address] from Last 3 Months or Most Recently Relevant to Health Maintenance Insurance [facility] C3 DENTAL-[facility] MEDICAID STAND ADULT [address]L [place] [address] GENERIC TPL Care Teams Baby Formula Worker Relationship Specialty Start Date End Date Aaron Pisano MD [address] [place] [address] PCP - General Internal Medicine 05/10/14 Antonietta Lim Community Relations ManagerWire Mill Rover 09/18/24
--- OUTSIDE RECORDS SUMMARY | 2025-07-09 13:50 | XMS_ITS | Encounter Summary ---
Author Organization [employer] Address [address] [place] [address] 7 [place] [address] Care Team Providers Care Aids Nurse Name Role Phone Aaron Pisano MD Primary Care Provide r Reason for Visit * Reason Onset Date Comments Med Refill 08/12/2024 Encounter Details Date Type Department Care Team ([facility] st Contact Info) Description 08/12/2024 Refill [facility] MEDICINE [address] [place] [address] Aaron Pisano MD 230 [place] [address] Smoker Social History Tobacco Use Types Packs/Day [...] - [place] [facility] [address] [place] [address] Altagracia Mancilla, RN 505 [place] [address] 08/29/2025 12:45 PM EST Office Visit [facility] ADULT DENTAL 230 [place] [address] Zhanna Hernandez 10/03/2025 10:00 AM EST Office Visit [facility] MEDICINE 230 [place] [address] Aaron Pisano MD 230 [place] [address] documented as of this encounter Goals Goal [...] documented as of this encounter Care Teams Aids Nurse Relationship Specialty Start Date End Date Aaron Pisano MD [address] [place] [address] PCP - General Internal Medicine 05/10/14 Antonietta Lim Plant Wire ChiefAuto Service Mechanic 09/18/24 documented as of this encounter
--- OUTSIDE RECORDS SUMMARY | 2025-07-09 13:50 | XMS_ITS | Encounter Summary ---
Author Organization [employer] Address 75 [facility] 7 [place] [address] Care Team Providers Care Vendor Representatives Name Role Phone Aaron Pisano MD Primary Care Provide r Reason for Visit * Reason Onset Date Comments Med Refill 06/03/2025 Encounter Details Date Type Department Care Team ([facility] Contact Info) Description 06/03/2025 Telephone [facility] MEDICINE [address] [place] [address] Aaron Pisano MD 230 [place] [address] Med Refill Social History Tobacco Use Types [...] the past 12 months, has t he [employer], gas, oil or water company threatened to [...] * Telephone Encounter - Sunil Mcconnell - 06/03/2025 9:35 AM EDT TC from pt requesting medication refill. Medications needing refill : oxyCODONE (Roxicodone) 5 MG immediate release tablet To be sent to: [facility] [place] [place] - 230 [facility] documented in this encounter Plan of Treatment Upcoming Encounters Date Type Department Care Team ([facility] st Contact Info) Description 07/29/2025 2:00 PM EST Telemedicine [facility] CH[facility] MED & PEDS 505 [place] [address] Altagracia Mancilla, GRACIELA 505 [place] [address] 08/29/2025 12:45 PM EST Office Visit [facility] ADULT DENTAL 230 [place] [address] Zhanna Hernandez 10/03/2025 10:00 AM EST Office Visit [facility] MEDICINE 230 [place] [address] Aaron Pisano MD 230 [place] [address] documented as of this encounter Goals Goal [...] documented as of this encounter Care Teams Vendor Representatives Relationship Specialty Start Date End Date Aaron Pisano MD 230 [place] [address] PCP - General Internal Medicine 05/10/14 Antonietta Lim Rn EndocrinologySkating Carhop 09/18/24 documented as of this encounter
--- OUTSIDE RECORDS SUMMARY | 2025-07-09 13:50 | XMS_ITS | Encounter Summary ---
Author Organization [employer] Address 75 [facility] 7 [place] [address] Care Team Providers Care Wellness Spa Manager Name Role Phone Aaron Pisano MD Primary Care Provide r Reason for Visit * Reason Onset Date Comments Med Refill 02/05/2025 Encounter Details Date Type Department Care Team ([facility] st Contact Info) Description 02/05/2025 Refill [facility] CH[facility] MED & PEDS 505 [place] [address] Fam Hartman MD 505 [place] [address] Chronic midline low back pain without sciatica [...] 07/29/2025 2:00 PM EST Telemedicine [facility] CHC MED & PEDS 505 [place] [address] Altagracia Mancilla, RN 505 [place] [address] 08/29/2025 12:45 PM EST Office Visit [facility] ADULT DENTAL 230 [place] [address] Zhanna Hernandez 10/03/2025 10:00 AM EST Office Visit [facility] MEDICINE 230 [place] [address] Aaron Pisano MD 230 [place] [address] documented as of this encounter Goals Goal [...] as of this encounter Care Teams Wellness Spa Manager Relationship Specialty Start Date End Date Aaron Pisano MD [address] [place] [address] PCP - General Internal Medicine 05/10/14 Antonietta Lim Drum DrierVault Person 09/18/24 documented as of this encounter
--- OUTSIDE RECORDS SUMMARY | 2025-07-09 13:50 | XMS_ITS | Encounter Summary ---
Author Organization [employer] Address [address] [place] [address] 7 [place] [address] Care Team Providers Care Photographic Spotter Name Role Phone Aaron Pisano MD Primary Care Provide r Reason for Visit * Reason Onset Date Comments Nurse Triage 02/21/2023 Encounter Details Date Type Department Care Team ([facility] st Contact Info) Description 02/21/2023 Telephone [facility] MEDICINE [address] [place] [address] Aaron Pisano MD 230 [place] [address] Nurse Triage Social History Tobacco Use Types [...] 4:45 PM EDT Please assist with obtaining [facility] [place] for 02/10/23. This press writer does not have [employer] access. Pt sent to ER after visit with [facility]. * Telephone Encounter - Leora Campbell RN - 02/21/2023 4:39 PM EDT Call to Zee Villanueva , reports having vomiting since seen at [facility] [place]. Per pt was [...] Center 02/25/2023 9:30 AM DUY Taveras MEDICINE [facility] 03/21/2023 1:00 PM Giovanna Payne PharmD [facility]IC[facility] 04/27/2023 3:00 PM Aniya Anderson RN MEDICINE [facility] Multiple (2) protocols were used on [...] accepted this outcome Please contact pt at [phone] Pt was at [facility] [place] on 02/10/2023 for same symptoms. documented in this encounter Plan of Treatment Upcoming Encounters Date Type Department Care Team (Late st Contact Info) Description 07/29/2025 2:00 PM EST Telemedicine [facility] CHC MED & PEDS 505 [place] [address] Altagracia Mancilla RN 505 [place] [address] 08/29/2025 12:45 PM EST Office Visit [facility] ADULT DENTAL 230 [place] [address] Zhanna Hernandez 10/03/2025 10:00 AM EST Office Visit [facility] MEDICINE 230 [place] [address] Aaron Pisano MD [address] [place] [address] documented as of this encounter Visit Diagnoses Not on filedocumented in this encounter Care Teams Photographic Spotter Relationship Specialty Start Date End Date Aaron Pisano MD [address] [place] [address] PCP - General Internal Medicine 05/10/14 Antonietta Lim Commercial Credit SpecialistHome Health Attendant 09/18/24 documented as of this encounter
--- OUTSIDE RECORDS SUMMARY | 2025-07-09 13:50 | XMS_ITS | Encounter Summary ---
Author Organization [employer] Address [address] [place] [address] 7 [place] [address] Care Team Providers Care Icu Manager Name Role Phone Aaron Pisano MD Primary Care Provide r Encounter Details Date Type Department Care Team (Latest Contact Info) Description 11/10/2020 Abstract [facility] CONVERSIONS Dental, Provider, DDS Social [...] Info) Description 07/29/2025 2:00 PM EST Telemedicine [facility] CHC MED & PEDS 505 [place] [address] Altagracia Mancilla, GRACIELA 505 [place] [address] 08/29/2025 12:45 PM EST Office Visit [facility] ADULT DENTAL [address] [place] [address] Zhanna Hernandez 10/03/2025 10:00 AM EST Office Visit [facility] MEDICINE 230 [place] [address] Aaron Pisano MD [address] [place] [address] documented as of this encounter Visit Diagnoses Not on filedocumented in this encounter Care Teams Icu Manager Relationship Specialty Start Date End Date Aaron Pisano MD [address] [place] [address] PCP - General Internal Medicine 05/10/14 Antonietta Lim Platform SupervisorAssistant Plant Controller 09/18/24 documented as of this encounter
--- OUTSIDE RECORDS SUMMARY | 2025-07-09 13:50 | XMS_ITS | Encounter Summary ---
Author Organization [employer] Address 75 [facility] 7t [place] [address] Care Team Providers Care Capture Manager Name Role Phone Aaron Pisano MD Primary Care Provide r Reason for Visit * Reason Onset Date Comments Med Refill 06/01/2023 Encounter Details Date Type Department Care Team (Late st Contact Info) Description 06/01/2023 Refill [facility] CHC MED & PEDS [address] [place] [address] Sumi Vang, ANP 230 [place] [address] Chronic midline low back pain without sciatica [...] with others, in a hotel, in a retirement, living outside on the street, on a [...] Info) Description 07/29/2025 2:00 PM EST Telemedicine [facility] MED & PEDS 505 [place] [address] Altagracia Mancilla, RN 505 [place] [address] 08/29/2025 12:45 PM EST Office Visit [facility] ADULT DENTAL 230 [place] [address] Zhanna Hernandez 10/03/2025 10:00 AM EST Office Visit [facility] MEDICINE 230 [place] [address] Aaron Pisano MD 230 [place] [address] documented as of this encounter Goals Goal Patient Goal Type Associated Problems Recent Progress Patient-Stated? Author Blood Pressure < 140/90 Blood Pressure 130/83( 025 3:21 PM EDT) No Giovanna Banks, PharmD documented as of this encounter Visit Diagnoses Diagnosis Chronic midline low back pain without sciatica documented in this encounter Care Teams Capture Manager Relationship Specialty Start Date End Date Aaron Pisano MD [address] [place] [address] PCP - General Internal Medicine 05/10/14 Antonietta Lim Polysomnography TechAutomotive Service Advisor 09/18/24 documented as of this encounter
--- OUTSIDE RECORDS SUMMARY | 2025-07-09 13:50 | XMS_ITS | Encounter Summary ---
Author Organization [employer] Address 75 [facility] 7 [place] [address] Care Team Providers Care Regrinder Operator Name Role Phone Aaron Pisano MD Primary Care Provide r Reason for Visit * Reason Onset Date Comments PT-1 06/11/2025 Encounter Details Date Type Department Care Team ([facility] Contact Info) Description 06/11/2025 Telephone [facility] MEDICINE 230 [place] [address] Aaron Pisano MD 230 [place] [address] PT-1 Social History Tobacco Use Types Packs/Day [...] your housing situation today? I have ella ulna 08/24/[address] you li [...] Y/N: Yes Provider name or facility name: [facility] Facility Address: [address] [facility] [place] Escort needed: Y/N: No Do you have a wheelchair: Y/N: No If yes- Manual or electric: N/A Visits: Once a month - Patient calling requesting PT1 Home Address verified: Y/N: Yes Provider name or facility name: [facility] Pulmonology Facility Address: [address] [facility] [place] Escort needed: Y/N: No Do you have a wheelchair: Y/N: No If yes- Manual or electric: N/A Visits: 3 times a month - Patient calling requesting PT1 Home Address verified: Y/N: Yes Provider name or facility name: [facility] Document Control Supervisor Facility Address: [address] [facility] [place] Escort needed: Y/N: No Do you have a wheelchair: Y/N: No If yes- Manual or electric: N/A Visits: Once a month - Patient calling requesting PT1 Home Address verified: Y/N: Yes Provider name or facility name: [facility] Facility Address: [address] [facility] [place] Escort needed: Y/N: No Do you have a wheelchair: Y/N: No If yes- Manual or electric: N/A Visits: 3 times a month - Patient calling requesting PT1 Home Address verified: Y/N: Yes Provider name or facility name: [facility] Rheumatology Facility Address: [address] [place] [address] [facility] Escort needed: Y/N: No Do you have a wheelchair: Y/N: No If yes- Manual or electric: N/A Visits: Once a month documented in this encounter Plan of Treatment Upcoming Encounters Date Type Department Care Team ([facility] st Contact Info) Description 07/29/2025 2:00 PM EST Telemedicine [facility] CHC MED & PEDS 505 [place] [address] Altagracia Mancilla RN 505 [place] [address] 08/29/2025 12:45 PM EST Office Visit [facility] ADULT DENTAL 230 [place] [address] Zhanna Hernandez 10/03/2025 10:00 AM EST Office Visit [facility] MEDICINE 230 [place] [address] Aaron Psiano MD 230 [place] [address] documented as of this encounter Goals Goal [...] documented as of this encounter Care Teams Regrinder Operator Relationship Specialty Start Date End Date Aaron Pisano MD [address] [place] [address] PCP - General Internal Medicine 05/10/14 Antonietta Lim Log Deck TenderPhysical Meteorologist 09/18/24 documented as of this encounter
--- OUTSIDE RECORDS SUMMARY | 2025-07-09 13:50 | XMS_ITS | Encounter Summary ---
Author Organization [employer] Address 75 [facility] 7 [place] [address] Care Team Providers Care Law Enforcement Officer Name Role Phone Aaron Pisano MD Primary Care Provide r Reason for Visit * Reason Comments Med Refill Encounter Details Date Type Department Care Team ([facility] st Contact Info) Description 07/07/2023 Refill [facility] MEDICINE 230 [place] [address] Aaron Pisano MD 230 [place] [address] Social History Tobacco Use Types Packs/Day Years [...] Description 07/29/2025 2:00 PM EST Telemedicine [facility] CHC MED & PEDS 505 [place] [address] Altagracia Mancilla RN 505 [place] [address] 08/29/2025 12:45 PM EST Office Visit [facility] ADULT DENTAL 230 [place] [address] Zhanna Hernandez 10/03/2025 10:00 AM EST Office Visit [facility] MEDICINE 230 [place] [address] Aaron Pisano MD 230 [place] [address] documented as of this encounter Goals Goal Patient Goal Type Associated Problems Recent Progress Patient-Stated? Author Blood Pressure < 140/90 Blood Pressure 130/83( 025 3:21 PM EDT) No Piers-Gambl Giovanna lozano, PharmD documented as of this encounter Visit Diagnoses Not on filedocumented in this encounter Care Teams Law Enforcement Officer Relationship Specialty Start Date End Date Aaron Pisano MD [address] [place] [address] PCP - General Internal Medicine 05/10/14 Antonietta Lim Messenger CopyForest Patrolman 09/18/24 documented as of this encounter
--- OUTSIDE RECORDS SUMMARY | 2025-07-09 13:50 | XMS_ITS | Encounter Summary ---
Author Organization [email or web address] Address [address] [place] [address] 7 [place] [address] Care Team Providers Care Home Appliance Washing Machine Mechanic Name Role Phone Aaron Pisano MD Primary Care Provide r Reason for Visit * Reason Onset Date Comments Med Refill 09/14/2022 Encounter Details Date Type Department Care Team (Late st Contact Info) Description 09/14/2022 Telephone [facility] MEDICINE 230 [place] [address] Aaron Pisano MD 230 [place] [address] Med Refill Social History Tobacco Use Types [...] Info) Description 07/29/2025 2:00 PM EST Telemedicine [facility] CHC MED & PEDS 505 [place] [address] Altagracia Mancilla, RN 505 [place] [address] 08/29/2025 12:45 PM EST Office Visit [facility] ADULT DENTAL 230 [place] [address] Zhanna Hernandez 10/03/2025 10:00 AM EST Office Visit [facility] MEDICINE 230 [place] [address] Aaron Pisano MD 230 [place] [address] documented as of this encounter Visit Diagnoses Not on filedocumented in this encounter Care Teams Home Appliance Washing Machine Mechanic Relationship Specialty Start Date End Date Aaron Pisano MD [address] [place] [address] PCP - General Internal Medicine 05/10/14 Antonietta Lim On Site ManagerWirer Street Light 09/18/24 documented as of this encounter
--- OUTSIDE RECORDS SUMMARY | 2025-07-09 13:50 | XMS_ITS | Encounter Summary ---
Author Organization [employer] Address 75 [facility] 7t [place] [address] Care Team Providers Care Solar Hot Water Installer Name Role Phone Aaron Pisano MD Primary Care Provide r Reason for Visit * Reason Comments Med Refill Encounter Details Date Type Department Care Team ([facility] st Contact Info) Description 07/04/2023 Refill [facility] CHC MED & PEDS [address] [place], [place] [phone] Sumi Vang, ANP 230 [place] [address] Social History Tobacco Use Types Packs/Day Years [...] [facility] 505 [place] [address] Altagracia Mancilla, RN 505 [place] [address] 08/29/2025 12:45 PM EST Office Visit [facility] ADULT DENTAL 230 [place] [address] Zhanna Hernandez 10/03/2025 10:00 AM EST Office Visit [facility] MEDICINE 230 [place] [address] Aaron Pisano MD 230 [place] [address] documented as of this encounter Goals Goal Patient Goal Type Associated Problems Recent Progress Patient-Stated? Author Blood Pressure < 140/90 Blood Pressure 130/83( 025 3:21 PM EDT) No Piers-Gambl e, Giovanna, PharmD documented as of this encounter Visit Diagnoses Not on filedocumented in this encounter Care Teams Solar Hot Water Installer Relationship Specialty Start Date End Date Aaron Pisano MD 230 [place] [address] PCP - General Internal Medicine 05/10/14 Antonietta Lim Respiratory SupervisorDesign Verification Engineer 09/18/24 documented as of this encounter"
--- OUTSIDE RECORDS SUMMARY | 2025-07-09 13:50 | XMS_ITS | Encounter Summary ---
Author Organization [employer] Address 75 [facility] 7 [place] [address] Care Team Providers Care Military Technology Manager Name Role Phone Aaron Pisano MD Primary Care Provide r Reason for Visit * Reason Comments Med Refill Encounter Details Date Type Department Care Team ([facility] st Contact Info) Description 10/06/2023 Refill [facility] MEDICINE 230 [place] [address] Aaron Pisano MD 230 [place] [address] Chronic midline low back pain without sciatica [...] Info) Description 07/29/2025 2:00 PM EST Telemedicine [facility] CHC MED & PEDS 505 [place] [address] Altagracia Mancilla RN 505 [place] [address] 08/29/2025 12:45 PM EST Office Visit [facility] ADULT DENTAL [address] [place] [address] Zhanna Hernandez 10/03/2025 10:00 AM EST Office Visit [facility] MEDICINE [address] [place] [address] Aaron Pisano MD [address] [place] [address] documented as of this encounter Goals Goal [...] documented as of this encounter Care Teams Military Technology Manager Relationship Specialty Start Date End Date Aaron Pisano MD 230 [place] [address] PCP - General Internal Medicine 05/10/14 Antonietta Lim Tariff ClerkBefore School 09/18/24 documented as of this encounter
--- OUTSIDE RECORDS SUMMARY | 2025-07-09 13:50 | XMS_ITS | Encounter Summary ---
Author Organization [employer] Address [address] [place] [address] Care Team Providers Care Scale Installer Name Role Phone Aaron Pisano MD Primary Care Provide r Reason for Visit * Reason Comments Med Refill Encounter Details Date Type Department Care Team (Late Contact Info) Description 04/18/2023 Refill [facility] MEDICINE 230 [place] [address] Aaron Pisano MD 230 [place] [address] Chronic bilateral low back pain without sciatica [...] [facility] 505 [place] [address] Altagracia Mancilla, GRACIELA 505 [place] [address] 08/29/2025 12:45 PM EST Office Visit [facility] ADULT DENTAL 230 [place] [address] Zhanna Hernandez 10/03/2025 10:00 AM EST Office Visit [facility] MEDICINE 230 [place], [place] [phone] Aaron Pisano MD 230 [place], [place] [phone] documented as of this encounter Goals Goal Patient Goal Type Associated Problems Recent Progress Patient-Stated? Author Blood Pressure < 140/90 Blood Pressure 130/83( 025 3:21 PM EDT) Giovanna Edwards, PharmD documented as of this encounter Visit Diagnoses Diagnosis Chronic bilateral low back pain without sciatica documented in this encounter Care Teams Scale Installer Relationship Specialty Start Date End Date Aaron Pisano MD [address] [place] [address] PCP - General Internal Medicine 05/10/14 Antonietta Lim Sand FillerAircraft Parts Assembler 09/18/24 documented as of this encounter
--- OUTSIDE RECORDS SUMMARY | 2025-07-09 13:50 | XMS_ITS | Encounter Summary ---
Author Organization [employer] Address [address] [place] [address] 7 [place] [address] Care Team Providers Care Civil Engineering Drafter Name Role Phone Aaron Pisano MD Primary Care Provide r Reason for Visit * Reason Onset Date Comments Med Refill 08/02/2024 Encounter Details Date Type Department Care Team ([facility] Contact Info) Description 08/02/2024 Telephone [facility] MEDICINE 230 [place] [address] Aaron Pisano MD 230 [place] [address] Med Refill Social History Tobacco Use Types [...] the past 12 months, has t he Active [employer], gas, oil or water company threatened to [...] Info) Description 07/29/2025 2:00 PM EST Telemedicine [facility] CHC MED & PEDS 505 [place] [address] Altagracia Mancilla RN 505 [place] [address] 08/29/2025 12:45 PM EST Office Visit [facility] ADULT DENTAL 230 [place] [address] Zhanna Hernandez 10/03/2025 10:00 AM EST Office Visit [facility] MEDICINE 230 [place] [address] Aaron Pisano MD 230 [place] [address] documented as of this encounter Goals Goal [...] documented as of this encounter Care Teams Civil Engineering Drafter Relationship Specialty Start Date End Date Aaron Pisano MD [address] [place] [address] PCP - General Internal Medicine 05/10/14 Antonietta Lim Nitro ManChoir Teacher 09/18/24 documented as of this encounter
--- OUTSIDE RECORDS SUMMARY | 2025-07-09 13:50 | XMS_ITS | Encounter Summary ---
Author Organization [employer] Address 75 [facility] 7t [place] [address] Care Team Providers Care Port Patrol Officer Name Role Phone Aaron Pisano MD Primary Care Provide r Reason for Visit * Reason Comments Med Refill Encounter Details Date Type Department Care Team (Late Contact Info) Description 02/18/2023 Refill [facility] MEDICINE [address] [place] [address] Aaron Pisano MD 230 [place] [address] Social History Tobacco Use Types Packs/Day Years [...] Upcoming Encounters Date Type Department Care Team ([facility] Contact Info) Description 07/29/2025 2:00 PM EST Telemedicine [facility] CHC MED & PEDS [address] [place] [address] Altagracia Mancilla, RN 505 [place] [address] 08/29/2025 12:45 PM EST Office Visit [facility] ADULT DENTAL [address] [place] [address] Zhanna Hernandez 10/03/2025 10:00 AM EST Office Visit [facility] MEDICINE [address] [place] [address] Aaron Pisano MD [address] [place] [address] documented as of this encounter Visit Diagnoses Not on filedocumented in this encounter Care Teams Port Patrol Officer Relationship Specialty Start Date End Date Aaron Pisano MD [address] [place] [address] [phone] PCP - General Internal Medicine 05/10/14 Antonietta Lim Fringe KnotterAsphalt Machine Operator 09/18/24 documented as of this encounter
--- OUTSIDE RECORDS SUMMARY | 2025-07-09 13:50 | XMS_ITS | Encounter Summary ---
Author Organization [employer] Address 75 [facility] 7 [place] [address] Care Team Providers Care Gis Coordinator Name Role Phone Aaron Pisano MD Primary Care Provide r Reason for Visit * Reason Comments Med Refill Encounter Details Date Type Department Care Team ([facility] st Contact Info) Description 05/07/2024 Refill [facility] MEDICINE 230 [place] [address] Aaron Pisano MD 230 [place] [address] Chronic midline low back pain without sciatica [...] [facility] 505 [place] [address] Altagracia Mancilla RN 505 [place] [address] 08/29/2025 12:45 PM EST Office Visit [facility] ADULT DENTAL [address] [place] [address] Zhanna Hernandez 10/03/2025 10:00 AM EST Office Visit [facility] MEDICINE [address] [place] [address] Aaron Pisano MD [address] [place] [address] documented as of this encounter Goals Goal [...] documented as of this encounter Care Teams Gis Coordinator Relationship Specialty Start Date End Date Aaron Pisano MD 230 [place] [address] PCP - General Internal Medicine 05/10/14 Antonietta Lim Senior Quality Assurance EngineerPill Maker 09/18/24 documented as of this encounter
--- OUTSIDE RECORDS SUMMARY | 2025-07-09 13:51 | XMS_ITS | Encounter Summary ---
Author Organization [employer] Address 75 [facility] 7 [place] [address] Care Team Providers Care Medical Imaging Technician Name Role Phone Aaron Psiano MD Primary Care Provide r Reason for Visit * Reason Onset Date Comments Med Refill 06/03/2025 Encounter Details Date Type Department Care Team ([facility] st Contact Info) Description 06/03/2025 Refill [facility] MEDICINE [address] [place] [address] Aaron Pisano MD 230 [place] [address] Chronic midline low back pain without sciatica [...] Info) Description 07/29/2025 2:00 PM EST Telemedicine [facility] CHC MED & PEDS 505 [place] [address] Altagracia Mancilla, RN 505 [place] [address] 08/29/2025 12:45 PM EST Office Visit [facility] ADULT DENTAL [address] [place] [address] Zhanna Hernandez 10/03/2025 10:00 AM EST Office Visit [facility] MEDICINE [address] [place], [place] [phone] Aaron Pisano MD 230 [place] [address] documented as of this encounter Goals Goal [...] as of this encounter Care Teams Medical Imaging Technician Relationship Specialty Start Date End Date Aaron Pisano MD [address] [place] [address] PCP - General Internal Medicine 05/10/14 Antonietta Lim Women'S Studies ProfessorMilk Hauler 09/18/24 documented as of this encounter
--- OUTSIDE RECORDS SUMMARY | 2025-07-09 13:51 | XMS_ITS | Encounter Summary ---
Author Organization [employer] Address 75 [facility] 7t [place] [address] Care Team Providers Care Drug Abuse Worker Name Role Phone Aaron Pisano MD Primary Care Provide r Reason for Visit * Reason Onset Date Comments Med Refill 05/02/2025 Encounter Details Date Type Department Care Team (Late st Contact Info) Description 05/02/2025 Refill [facility] CHC MED & PEDS [address] [place] [address] Aaron Pisano MD 230 [facility] [place] [address] Chronic midline low back pain without sciatica [...] 07/29/2025 2:00 PM EST Telemedicine [facility] CHC MED & PEDS 505 [place] [address] Altagracia Mancilla, RN 505 [place] [address] 08/29/2025 12:45 PM EST Office Visit [facility] ADULT DENTAL 230 [place] [address] Zhanna Hernandez 10/03/2025 10:00 AM EST Office Visit [facility] MEDICINE 230 [place] [address] Aaron Pisano MD 230 [place] [address] documented as of this encounter Goals Goal [...] documented as of this encounter Care Teams Drug Abuse Worker Relationship Specialty Start Date End Date Aaron Pisano MD [address] [place] [address] PCP - General Internal Medicine 05/10/14 Antonietta Lim Oil DelivererHvac Project Manager 09/18/24 documented as of this encounter
--- OUTSIDE RECORDS SUMMARY | 2025-07-09 13:51 | XMS_ITS | Encounter Summary ---
Author Organization [employer] Address 75 [facility] 7t [place] [address] Care Team Providers Care Diamond Sizer And Sorter Name Role Phone Aaron Pisano MD Primary Care Provide r Encounter Details Date Type Department Care Team ([facility] Contact Info) Description 04/05/2025 Telephone [facility] MEDICINE 230 [place] [address] Aaron Pisano MD 230 [place], [place] [phone] Social History Tobacco Use Types Packs/Day Years [...] [facility] 505 [place] [address] Altagracia Mancilla, GRACIELA 505 [place] [address] 08/29/2025 12:45 PM EST Office Visit [facility] ADULT DENTAL 230 [place], [place] [phone] Zhanna Hernandez 10/03/2025 10:00 AM EST Office Visit [facility] MEDICINE [address] [place] [address] Aaron Pisano MD 230 [place] [address] documented as of this encounter Goals Goal [...] documented as of this encounter Care Teams Diamond Sizer And Sorter Relationship Specialty Start Date End Date Aaron Pisano MD [address] [place] [address] PCP - General Internal Medicine 05/10/14 Antonietta Lim Energy DirectorSoaping Department Supervisor 09/18/24 documented as of this encounter
--- OUTSIDE RECORDS SUMMARY | 2025-07-09 13:51 | XMS_ITS | Encounter Summary ---
Author Organization [employer] Address 75 [facility] 7t [place] [address] Care Team Providers Care Christian Science Nurse Name Role Phone Aaron Pisano MD Primary Care Provide r Encounter Details Date Type Department Care Team ([facility] Contact Info) Description 07/09/2025 Orders Only GENERIC EXTERNAL DATA DEPARTMENT Provider, Generic External Data Social History Tobacco Use Types Packs/Day Years [...] Info) Description 07/29/2025 2:00 PM EST Telemedicine [facility] CHC MED & PEDS 505 [place] [address] Altagracia Mancilla RN 505 [place] [address] 08/29/2025 12:45 PM EST Office Visit [facility] ADULT DENTAL 230 [place] [address] Zhanna Hernandez 10/03/2025 10:00 AM EST Office Visit [facility] MEDICINE 230 [place] [address] Aaron Pisano MD 230 [place] [address] documented as of this encounter Goals Goal Patient Goal Type Associated Problems Recent Progress Patient-Stated? Author Blood Pressure < 140/90 Blood Pressure 130/83( 025 3:21 PM EDT) No Giovanna Banks, Carleen documented as of this encounter Procedures Procedure Name Priority Date/Time Associated Diagnosis Comments POCT CARBON MONOXIDE Routine 07/09/2025 1:07 PM EST TSH W/REFLEX TO FT4 Routine 07/09/2025 1 :07 PM EST documented in this encounter Results * TSH with Reflex to Free T4 (07/09/2025 1:07 PM EST) TSH reflex Free T4 4.00 0.32 - 4.0 uIU/mL [facility] 07/09/2025 1:07 PM EST 07/09/2025 1:07 PM EST Generic External Data Provider LAB BLOOD ORDERAB LES Final Result Performing Organization Address [facility] Co de Phone Number [facility] [address] [place] [address] [phone] * POCT Carbon Monoxide (07/09/2025 1:07 PM EST) Carbon Monoxide POC 2.5 % [facility] Comment:CARBON MONOXIDE REFE RENCE RANGE: NON SMOKERS: LESS THAN 2.0% SMOKERS: 2.0 - 9.0%Note:Therapeutic levels of Hydroxocobalamin (1 mg/mL and 2 mg/mL)may interfere with carboxyhemoglobin causing lower thanexpected values. A negative interference withcarboxyhemoglobin has the potential to alter the medicalassessment of the patient and may withhold necessaryfollow-up treatment in response to elevatedcarboxyhemoglobin levels. 07/09/2025 1:07 PM EST 07/09/2025 1:16 PM EST Generic External Data Provider LAB POINT OF CARE TEST DOCKED DEVICE ORDERABLES Final Result Performing Organization Address [facility] Co de Phone Number [facility] [address] [place] [address] [phone] documented in this encounter Visit Diagnoses Not on filedocumented in this encounter Additional Health Concerns Assessment Noted Time PHQ-9 Depression Total Score: 2 06/05/20 24 8:38 AM EDT documented as of this encounter Care Teams Christian Science Nurse Relationship Specialty Start Date End Date Aaron Pisano MD [address] [place] [address] PCP - General Internal Medicine 05/10/14 Antonietta Lim Communication AssistantRf Design Engineer 09/18/24 documented as of this encounter
--- OUTSIDE RECORDS SUMMARY | 2025-07-09 13:51 | XMS_ITS | Encounter Summary ---
Author Organization [employer] Address 75 [facility] 7 [place] [address] Care Team Providers Care Asset Protection Representative Name Role Phone Aaron Pisano MD Primary Care Provide r Reason for Visit * Reason Onset Date Comments PT-1 05/15/2025 Encounter Details Date Type Department Care Team ([facility] Contact Info) Description 05/15/2025 Telephone [facility] MEDICINE [address] [place] [address] Aaron Pisano MD [address] [place] [address] PT-1 Social History Tobacco Use Types Packs/Day [...] Y/N: Yes Provider name or facility name: [facility] Infectious Disease Facility Address: [address] [place] [address] Escort needed: Y/N: No Do you have a wheelchair: Y/N: No If yes- Manual or electric: N/A Visits: Twice a month documented in this encounter Plan of Treatment Upcoming Encounters Date Type Department Care Team (Late st Contact Info) Description 07/29/2025 2:00 PM EST Telemedicine [facility] CHC MED & PEDS 505 [place] [address] Altagracia Mancilla, GRACIELA 505 [place] [address] 08/29/2025 12:45 PM EST Office Visit [facility] ADULT DENTAL 230 [place], [place] [phone] Hernandez Zhanna 10/03/2025 10:00 AM EST Office Visit [facility] MEDICINE 230 [place], [place] [phone] Aaron Pisano MD [address] [place], [place] [phone] documented as of this encounter Goals Goal [...] documented as of this encounter Care Teams Asset Protection Representative Relationship Specialty Start Date End Date Aaron Pisano MD [address] [place], [place] [phone] PCP - General Internal Medicine 05/10/14 Antonietta Lim Cylinder BatcherLarry Car Operator 09/18/24 documented as of this encounter
--- OUTSIDE RECORDS SUMMARY | 2025-07-09 13:51 | XMS_ITS | Encounter Summary ---
Author Organization [employer] Address 75 [facility] 7 [place] [address] Care Team Providers Care Building Construction Teacher Name Role Phone Aaron Pisano MD Primary Care Provide r Reason for Visit * Reason Onset Date Comments pt1 01/07/2025 Encounter Details Date Type Department Care Team ([facility] Contact Info) Description 01/07/2025 Telephone [facility] MEDICINE 230 [place] [address] Aaron Pisano MD 230 [place] [address] pt1 Social History Tobacco Use Types Packs/Day [...] this requirement. Please update information for address [address] [place] [address] [facility] [address] documented in this encounter Plan of Treatment Upcoming Encounters Date Type Department Care Team (Late st Contact Info) Description 07/29/2025 2:00 PM EST Telemedicine [facility] CHC MED & PEDS 505 [place] [address] Altagracia Mancilla, RN 505 [place] [address] 08/29/2025 12:45 PM EST Office Visit [facility] ADULT DENTAL 230 [facility] [place] [address] Zhanna Hernandez 10/03/2025 10:00 AM EST Office Visit [facility] MEDICINE [address] [place] [address] Aaron Pisano MD 230 [place] [address] documented as of this encounter Goals Goal [...] documented as of this encounter Care Teams Building Construction Teacher Relationship Specialty Start Date End Date Aaron Pisano MD 230 [place] [address] PCP - General Internal Medicine 05/10/14 Antonietta Lim Development Vice PresidentSketcher 09/18/24 documented as of this encounter
--- OUTSIDE RECORDS SUMMARY | 2025-07-09 13:51 | XMS_ITS | Encounter Summary ---
Author Organization [employer] Address [address] [place] [address] 7 [place] [address] Care Team Providers Care Smutter Name Role Phone Aaron Pisano MD Primary Care Provide r Reason for Visit * Reason Comments Med Refill Encounter Details Date Type Department Care Team ([facility] st Contact Info) Description 07/01/2025 Refill [facility] MEDICINE 230 [place] [address] Aaron Pisano MD 230 [place] [address] Chronic bilateral low back pain without sciatica; [...] EST Telemedicine [facility] CHC MED & PEDS 505 [place] [address] Altagracia Mancilla, RN 505 [place] [address] 08/29/2025 12:45 PM EST Office Visit [facility] ADULT DENTAL 230 [place] [address] Zhanna Hernandez 10/03/2025 10:00 AM EST Office Visit [facility] MEDICINE [address] [place] [address] Aaron Pisano MD 230 [place] [address] documented as of this encounter Goals Goal [...] documented as of this encounter Care Teams Smutter Relationship Specialty Start Date End Date Aaron Pisano MD [address] [place] [address] PCP - General Internal Medicine 05/10/14 Antonietta Lim ShipwrightForest Fire Management Officer 09/18/24 documented as of this encounter
--- OUTSIDE RECORDS SUMMARY | 2025-07-09 13:51 | XMS_ITS | Encounter Summary ---
Author Organization [employer] Address 75 [facility] 7 [place] [address] Care Team Providers Care Monument Setter Name Role Phone Aaron Pisano MD Primary Care Provide r Reason for Visit * Reason Onset Date Comments Med Refill 01/07/2025 Encounter Details Date Type Department Care Team (Late st Contact Info) Description 01/07/2025 Refill [facility] MEDICINE 230 [place] [address] Fam Hartman MD [address] [place] [address] Chronic midline low back pain without sciatica [...] the past 12 months, has t he [employer], gas, oil or water company threatened to [...] Info) Description 07/29/2025 2:00 PM EST Telemedicine [facility] CHC MED & PEDS 505 [place] [address] Altagracia Mancilla, RN 505 [place] [address] 08/29/2025 12:45 PM EST Office Visit [facility] ADULT DENTAL 230 [place] [address] Zhanna Hernandez 10/03/2025 10:00 AM EST Office Visit [facility] MEDICINE 230 [place], [place] [phone] Aaron Pisano MD 230 [place] [address] documented as of this encounter Goals Goal [...] documented as of this encounter Care Teams Monument Setter Relationship Specialty Start Date End Date Aaron Pisano MD [address] [place] [address] PCP - General Internal Medicine 05/10/14 Antonietta Lim Mergers And Acquisitions AttorneyPaper Reeler 09/18/24 documented as of this encounter
--- OUTSIDE RECORDS SUMMARY | 2025-07-09 13:51 | XMS_ITS | Encounter Summary ---
Author Organization [employer] Address 75 [facility] 7t [place] [address] Care Team Providers Care Causticiser Name Role Phone Aaron Pisano MD Primary Care Provide r Reason for Visit * Reason Comments Med Refill Encounter Details Date Type Department Care Team ([facility] st Contact Info) Description 04/05/2025 Refill [facility] MEDICINE 230 [place] [address] Aaron Pisano MD 230 [place] [address] Chronic midline low back pain without sciatica [...] the past 12 months, has t he [employer], gas, oil or water company threatened to [...] Info) Description 07/29/2025 2:00 PM EST Telemedicine [facility] CHC MED & PEDS 505 [place] [address] Altagracia Mancilla, GRACIELA 505 [place] [address] 08/29/2025 12:45 PM EST Office Visit [facility] ADULT DENTAL 230 [place] [address] Zhanna Hernandez 10/03/2025 10:00 AM EST Office Visit [facility] MEDICINE 230 [place] [address] Aaron Pisano MD [address] [place] [address] documented as of this encounter Goals Goal [...] documented as of this encounter Care Teams Causticiser Relationship Specialty Start Date End Date Aaron Pisano MD 230 [place] [address] PCP - General Internal Medicine 05/10/14 Antonietta Lim General OphthalmologistRoadmaster 09/18/24 documented as of this encounter
--- OUTSIDE RECORDS SUMMARY | 2025-07-09 13:51 | XMS_ITS | Encounter Summary ---
Author Organization [employer] Address 75 [facility] 7 [place] [address] Care Team Providers Care Water Engineer Name Role Phone Aaron Pisano MD Primary Care Provide r Reason for Visit * Reason Onset Date Comments Med Refill 01/04/2025 Encounter Details Date Type Department Care Team (Late st Contact Info) Description 01/04/2025 Refill [facility] MEDICINE 230 [place] [address] Fam Hartman MD [address] [place] [address] Chronic midline low back pain without sciatica [...] the past 12 months, has t he [employer], gas, oil or water company threatened to [...] [facility] [address] [place] [address] Altagracia Mancilla, RN 505 [place] [address] 08/29/2025 12:45 PM EST Office Visit [facility] ADULT DENTAL 230 [place] [address] Zhanna Hernandez 10/03/2025 10:00 AM EST Office Visit [facility] MEDICINE 230 [place], [place] [phone] Aaron Pisano MD 230 [place] [address] documented as of this encounter Goals Goal [...] as of this encounter Care Teams Water Engineer Relationship Specialty Start Date End Date Aaron Pisano MD [address] [place] [address] PCP - General Internal Medicine 05/10/14 Antonietta Lim Nuclear Powerplant MechanicHeel Burnisher 09/18/24 documented as of this encounter
--- OUTSIDE RECORDS SUMMARY | 2025-07-09 13:51 | XMS_ITS | Encounter Summary ---
Author Organization [employer] Address 75 [facility] 7 [place] [address] Care Team Providers Care Media Relations Intern Name Role Phone Aaron Pisano MD Primary Care Provide r Reason for Visit * Reason Onset Date Comments Med Refill 05/01/2025 Encounter Details Date Type Department Care Team ([facility] st Contact Info) Description 05/01/2025 Refill [facility] MEDICINE 230 [place] [address] Aaron Pisano MD 230 [place] [address] Social History Tobacco Use Types Packs/Day Years [...] the past 12 months, has t he [employer], gas, oil or water company threatened to [...] [facility] [address] [place] [address] Altagracia Mancilla, GRACIELA 505 [place] [address] 08/29/2025 12:45 PM EST Office Visit [facility] ADULT DENTAL 230 [place] [address] Zhanna Hernandez 10/03/2025 10:00 AM EST Office Visit [facility] MEDICINE 230 [place] [address] Aaron Pisano MD 230 [place] [address] documented as of this encounter Goals Goal [...] documented as of this encounter Care Teams Media Relations Intern Relationship Specialty Start Date End Date Aaron Pisano MD [address] [place] [address] PCP - General Internal Medicine 05/10/14 Antonietta Lim Casting DirectorAirbrush Artist Photography 09/18/24 documented as of this encounter
--- OUTSIDE RECORDS SUMMARY | 2025-07-09 13:51 | XMS_ITS | Encounter Summary ---
Author Organization [employer] Address 75 [facility] 7 [place] [address] Care Team Providers Care Stitch Separator Name Role Phone Aaron Pisano MD Primary Care Provide r Reason for Visit * Reason Onset Date Comments Pt-1 05/24/2025 Encounter Details Date Type Department Care Team ([facility] Contact Info) Description 05/24/2025 Telephone [facility] MEDICINE 230 [place] [address] Aaron Pisano MD 230 [place] [address] Pt-1 Social History Tobacco Use Types Packs/Day [...] Y/N: Yes Provider name or facility name: [facility] Infectious Disease Facility Address: [address] [place] [address] Escort needed: Y/N: No Do you have a wheelchair: Y/N: No If yes- Manual or electric: N/A Visits: Once a month documented in this encounter Plan of Treatment Upcoming Encounters Date Type Department Care Team (Late st Contact Info) Description 07/29/2025 2:00 PM EST Telemedicine [facility] CHC MED & PEDS 505 [place] [address] Altagracia Mancilla, GRACIELA 505 [place] [address] 08/29/2025 12:45 PM EST Office Visit [facility] ADULT DENTAL 230 [place], [place] [phone] Zhanna Hernandez 10/03/2025 10:00 AM EST Office Visit [facility] MEDICINE 230 [facility] [place], [place] [phone] Aaron Pisano MD 230 [place], [place] [phone] documented as of this encounter Goals Goal [...] documented as of this encounter Care Teams Stitch Separator Relationship Specialty Start Date End Date Aaron Pisano MD 230 [place], [place] [phone] PCP - General Internal Medicine 05/10/14 Antonietta Lim Drying Can WorkerStone Operator 09/18/24 documented as of this encounter
--- OUTSIDE RECORDS SUMMARY | 2025-07-09 13:51 | XMS_ITS | Encounter Summary ---
Author Organization [employer] Address 75 [facility] 7 [place] [address] Care Team Providers Care Site Manager Name Role Phone Aaron Pisano MD Primary Care Provide r Reason for Visit * Reason Onset Date Comments Appointment Request 04/09/2025 Encounter Details Date Type Department Care Team ([facility] Contact Info) Description 04/09/2025 Telephone [facility] MEDICINE [address] [place] [address] Aaron Pisano MD 230 [place] [address] Appointment Request Social History Tobacco Use Types [...] , pt has covid Contact pt at [phone] documented in this encounter Plan of Treatment Upcoming Encounters Date Type Department Care Team (Late st Contact Info) Description 07/29/2025 2:00 PM EST Telemedicine [facility] CHC MED & PEDS 505 [place] [address] Altagracia Mancilla, GRACIELA 505 [place] [address] 08/29/2025 12:45 PM EST Office Visit [facility] ADULT DENTAL [address] [place] [address] Zhanna Hernandez 10/03/2025 10:00 AM EST Office Visit [facility] [address] [place] [address] Aaron Pisano MD [address] [place] [address] documented as of this encounter Goals Goal [...] documented as of this encounter Care Teams Site Manager Relationship Specialty Start Date End Date Aaron Pisano MD [address] [place] [address] PCP - General Internal Medicine 05/10/14 Antonietta Lim CrabberEquine Intern 09/18/24 documented as of this encounter
--- OUTSIDE RECORDS SUMMARY | 2025-07-09 13:51 | XMS_ITS | Encounter Summary ---
Author Organization [employer] Address 75 [facility] 7 [place] [address] Care Team Providers Care Bottle Washer Name Role Phone Aaron Pisano MD Primary Care Provide r Reason for Visit * Reason Onset Date Comments Med Refill 05/24/2025 Encounter Details Date Type Department Care Team ([facility] st Contact Info) Description 05/24/2025 Refill [facility] ADULT DENTAL 230 [place] [address] Miki Sarkar, DDS 230 [place] [address] Social History Tobacco Use Types Packs/Day Years [...] 07/29/2025 2:00 PM EST Telemedicine [facility] CHC MED & PEDS 505 [place] [address] Altagracia Mancilla RN 505 [place] [address] 08/29/2025 12:45 PM EST Office Visit [facility] ADULT DENTAL 230 [place] [address] Zhanna Hernandez 10/03/2025 10:00 AM EST Office Visit [facility] MEDICINE 230 [place], [place] [phone] Aaron Pisano MD 230 [place] [address] documented as of this encounter Goals Goal [...] documented as of this encounter Care Teams Bottle Washer Relationship Specialty Start Date End Date Aaron Pisano MD 230 [place] [address] PCP - General Internal Medicine 05/10/14 Antonietta Lim Oil TesterShipyard Painter Apprentice 09/18/24 documented as of this encounter
== END 2025-07-09 12:48 | disposition home or self-care (01) ==
LOC: HO.HSM 11:38
PROVIDERS: PCP Internal Medicine; Visit Provider Nurse Practitioner
DX: R51.9 Headache, unspecified (principal); G43.709 Chronic migraine without aura, not intractable, without status migrainosus
CPT/HCPCS: 99214

== ENCOUNTER 2025-07-09 11:37 | Outpatient (REF) | payer MEDICAID, SELFPAY ==
[2025-07-09 13:18] LABS: Carbon Monoxide POC 2.5 %
== END 2025-07-09 11:38 | disposition home or self-care (01) ==
LOC: HO.LAB 11:37
PROVIDERS: PCP Internal Medicine; Visit Provider Nurse Practitioner
DX: G43.709 Chronic migraine without aura, not intractable, without status migrainosus (principal); Z79.899 Other long term (current) drug therapy
CPT/HCPCS: 36415; 82375; 84443; 99212

== ENCOUNTER → 2025-07-25 19:35 | Outpatient (BNV) | payer MEDICAID, SELFPAY | PROVIDERS: PCP Internal Medicine; Visit Provider Radiology Diagnostic Radiology | DX: D17.79 Benign lipomatous neoplasm of other sites (principal); M47.817 Spondylosis without myelopathy or radiculopathy, lumbosacral region; R16.0 Hepatomegaly, not elsewhere classified | CPT/HCPCS: 72148 ==

== ENCOUNTER 2025-07-25 19:36 | Outpatient (REF) | payer MEDICAID, SELFPAY ==
--- NOTE | ~2025-07-25 | MR_ITS ---
EXAMINATION: MR LUMBAR SPINE WITHOUT CONTRAST CLINICAL INFORMATION: Severe chronic low back pain. COMPARISON: December 11, 2021. TECHNIQUE: MRI of the lumbar spine was obtained using routine sequences without contrast. FINDINGS: Last rib-bearing vertebra labeled T12. No bone marrow STIR signal abnormality. Multilevel disc desiccation pronounced at L3-4. Normal alignment. 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 There is an intrinsic hyperintense T1, intradural/extramedullary, midline, cylindrical shaped, signal abnormality extending from conus medullaris L2 to the dorsal S3 level. Conus medullaris ends at pedicle of L2. T12-L1: No disc herniation. No neuroforamina stenosis. L1-2: No disc herniation. No neuroforamina stenosis. L2-3: Broad-based disc bulging. No central spinal canal or neuroforamina stenosis. L3-4: Broad-based disc bulging. Facet joint hypertrophy. Reduced AP diameter of the thecal sac and neuroforamina. L4-5: Broad-based disc bulging. Facet joint hypertrophy. Reduced AP diameter of thecal sac and neuroforamina. L5-S1: Broad-based disc bulging. Facet joint hypertrophy. Reduced AP diameter of the thecal sac and bilateral neuroforamina narrowing. Prominent epidural fat in the sacrum. No prevertebral compartment hematoma, mass or fluid collection. Liver is enlarged. 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 Multilevel spondylosis L3-4 to L5-S1. Hepatomegaly. Electronically signed by: Nathan Hand MD 07/26/2025 06:15 AM [facility]
--- OUTSIDE RECORDS SUMMARY | 2025-07-25 20:01 | XMS_ITS | Encounter Summary ---
Author Organization [employer] Address [address] [place] [address] 7 [place] [address] Care Team Providers Care Cnc Field Service Engineer Name Role Phone Aaron Pisano MD Primary Care Provide r Encounter Details Date Type Department Care Team (Latest Contact Info) Description 11/10/[address] [facility] CONVERSIONS Dental, Provider, DDS Social [...] 2:00 PM EST Telemedicine [facility] CHC MED & PEDS 505 [place] [address] Altagracia Mancilla, GRACIELA 505 [place] [address] 08/29/2025 12:45 PM EST Office Visit [facility] ADULT DENTAL [address] [place] [address] Zhanna Hernandez 10/03/2025 10:00 AM EST Office Visit [facility] MEDICINE 230 [place] [address] Aaron Pisano MD [address] [place] [address] documented as of this encounter Visit Diagnoses Not on filedocumented in this encounter Care Teams Cnc Field Service Engineer Relationship Specialty Start Date End Date Aaron Pisano MD [address] [place] [address] PCP - General Internal Medicine 05/10/14 Antonietta Lim Window DresserAdobe Maker 09/18/24 documented as of this encounter
--- OUTSIDE RECORDS SUMMARY | 2025-07-25 20:01 | XMS_ITS | Encounter Summary ---
Author Organization [employer] Address 75 [facility] 7t [place] [address] Care Team Providers Care Geoscience Laboratory Technician Name Role Phone Aaron Pisano MD Primary Care Provide r Reason for Visit * Reason Onset Date Comments Med Refill 06/01/2023 Encounter Details Date Type Department Care Team (Late st Contact Info) Description 06/01/2023 Refill [facility] CHC MED & PEDS [address] [place] [address] Sumi Vang, ANP 230 [place] [address] Chronic midline low back pain without sciatica [...] with others, in a hotel, in a jail, living outside on the street, on a [...] Info) Description 07/29/2025 2:00 PM EST Telemedicine [facility] MED & PEDS 505 [place] [address] Altagracia Mancilla, RN 505 [place] [address] 08/29/2025 12:45 PM EST Office Visit [facility] ADULT DENTAL 230 [place] [address] Zhanna Hernandez 10/03/2025 10:00 AM EST Office Visit [facility] MEDICINE 230 [place] [address] Aaron Pisano MD 230 [place] [address] documented as of this encounter Goals Goal Patient Goal Type Associated Problems Recent Progress Patient-Stated? Author Blood Pressure < 140/90 Blood Pressure 130/83( 025 3:21 PM EDT) No Giovanna Banks, PharmD documented as of this encounter Visit Diagnoses Diagnosis Chronic midline low back pain without sciatica documented in this encounter Care Teams Geoscience Laboratory Technician Relationship Specialty Start Date End Date Aaron Pisano MD [address] [place] [address] PCP - General Internal Medicine 05/10/14 Antonietta Lim Accounting Administrative AssistantSteel Floor Pan Placing Supervisor 09/18/24 documented as of this encounter
--- OUTSIDE RECORDS SUMMARY | 2025-07-25 20:01 | XMS_ITS | Encounter Summary ---
Author Organization [employer] Address 75 [facility] 7t [place] [address] Care Team Providers Care Loft Worker Head Name Role Phone Aaron Pisano MD Primary Care Provide r Reason for Visit * Reason Comments Med Refill Encounter Details Date Type Department Care Team (Late Contact Info) Description 02/18/2023 Refill [facility] MEDICINE 230 [place] [address] Aaron Pisano MD 230 [place] [address] Social History Tobacco Use Types Packs/Day Years [...] Upcoming Encounters Date Type Department Care Team ([facility] Contact Info) Description 07/29/2025 2:00 PM EST Telemedicine [facility] CHC MED & PEDS 505 [place] [address] Altagracia Mancilla, RN 505 [place] [address] 08/29/2025 12:45 PM EST Office Visit [facility] ADULT DENTAL 230 [place] [address] Zhanna Hernandez 10/03/2025 10:00 AM EST Office Visit [facility] MEDICINE [address] [place] [address] Aaron Pisano MD [address] [place] [address] documented as of this encounter Visit Diagnoses Not on filedocumented in this encounter Care Teams Loft Worker Head Relationship Specialty Start Date End Date Aaron Pisano MD [address] [place] [address] [phone] PCP - General Internal Medicine 05/10/14 Antonietta Lim Supervisor Beet EndKosher Dietary Service Manager 09/18/24 documented as of this encounter
--- OUTSIDE RECORDS SUMMARY | 2025-07-25 20:01 | XMS_ITS | Encounter Summary ---
Author Organization [employer] Address [address] [place] [address] [address] [address] Care Team Providers Care Cardiologist Name Role Phone Aaron Pisano MD Primary Care Provide r Reason for Visit * Reason Comments Med Refill Encounter Details Date Type Department Care Team ([facility] Contact Info) Description 03/15/2023 Refill [facility] MEDICINE 230 [place] [address] Aaron Pisano MD 230 [place] [address] Smoker Social History Tobacco Use Types Packs/Day [...] Department Care Team ([facility] Contact Info) Description 07/29/2025 2:00 PM EST Telemedicine [facility] CHC MED & PEDS 505 [place] [address] Altagracia Mancilla, RN 505 [place] [address] 08/29/2025 12:45 PM EST Office Visit [facility] ADULT DENTAL 230 [place] [address] Zhanna Hernandez 10/03/2025 10:00 AM EST Office Visit [facility] MEDICINE 230 [place] [address] Aaron Pisano MD 230 [place] [address] documented as of this encounter Visit Diagnoses Diagnosis Smoker Tobacco use disorder documented in this encounter Care Teams Cardiologist Relationship Specialty Start Date End Date Aaron Pisano MD 230 [place] [address] PCP - General Internal Medicine 05/10/14 Antonietta Lim Nuclear Powerplant SupervisorAircraft Quality Control Inspector 09/18/24 documented as of this encounter
--- OUTSIDE RECORDS SUMMARY | 2025-07-25 20:01 | XMS_ITS | Encounter Summary ---
Author Organization [employer] Address [address] [place] [address] 7 [place] [address] Care Team Providers Care Lockstitch Binder Name Role Phone Aaron Pisano MD Primary Care Provide r Reason for Visit * Reason Onset Date Comments Med Refill 11/16/2022 Encounter Details Date Type Department Care Team ([facility] st Contact Info) Description 11/16/2022 Telephone [facility] MEDICINE [address] [place] [address] Aaron Pisano MD 230 [place] [address] Med Refill Social History Tobacco Use Types [...] med refill status Please contact pt at [phone] * Telephone Encounter - Natasha Jain - 11/30/2022 1:14 PM EDT Tc from pt requesting medication status. Please contact pt at [phone] * Telephone Encounter - Jenny Smith - 11/16/2022 4:36 PM EDT Tc from pt requesting med refill for medication oxyCODONE (Roxicodone) 5 MG immediate release tablet. documented in this encounter Plan of Treatment Upcoming Encounters Date Type Department Care Team (Late st Contact Info) Description 07/29/2025 2:00 PM EST Telemedicine [facility] CHC MED & PEDS 505 [place] [address] Altagracia Mancilla, RN 505 [place] [address] 08/29/2025 12:45 PM EST Office Visit [facility] ADULT DENTAL [address] [place] [address] Zhanna Hernandez 10/03/2025 10:00 AM EST Office Visit [facility] MEDICINE 230 [place] [address] Aaron Pisano MD [address] [place] [address] documented as of this encounter Visit Diagnoses Not on filedocumented in this encounter Care Teams Lockstitch Binder Relationship Specialty Start Date End Date Aaron Pisano MD [address] [place] [address] PCP - General Internal Medicine 05/10/14 Antonietta Lim Personal Financial CounselorClinical Project Coordinator 09/18/24 documented as of this encounter
--- OUTSIDE RECORDS SUMMARY | 2025-07-25 20:01 | XMS_ITS | Encounter Summary ---
Author Organization [employer] Address [address] [place] [address] [place], [place] [address] Care Team Providers Care Branch Examiner Name Role Phone Araon Pisano MD Primary Care Provide r Reason for Visit * Reason Comments Med Refill Encounter Details Date Type Department Care Team (Late Contact Info) Description 04/18/2023 Refill [facility] MEDICINE 230 [place] [address] Aaron Pisano MD 230 [place] [address] Chronic bilateral low back pain without sciatica [...] Info) Description 07/29/2025 2:00 PM EST Telemedicine [facility] CHC MED & PEDS 505 [place] [address] Altagracia Mancilla, GRACIELA 505 [place] [address] 08/29/2025 12:45 PM EST Office Visit [facility] ADULT DENTAL 230 [place] [address] Zhanna Hernandez 10/03/2025 10:00 AM EST Office Visit [facility] MEDICINE 230 [place], [place] [phone] Aaron Pisano MD 230 [place], [place] [phone] documented as of this encounter Goals Goal Patient Goal Type Associated Problems Recent Progress Patient-Stated? Author Blood Pressure < 140/90 Blood Pressure 130/83( 025 3:21 PM EDT) Giovanna Edwards, PharmD documented as of this encounter Visit Diagnoses Diagnosis Chronic bilateral low back pain without sciatica documented in this encounter Care Teams Branch Examiner Relationship Specialty Start Date End Date Aaron Pisano MD [address] [place] [address] PCP - General Internal Medicine 05/10/14 Antonietta Lim Emergency Dispatch OperatorLead Handler 09/18/24 documented as of this encounter
--- OUTSIDE RECORDS SUMMARY | 2025-07-25 20:01 | XMS_ITS | Encounter Summary ---
Author Organization [employer] Address 75 [facility] 7t [place] [address] Care Team Providers Care Rooming House Inspector Name Role Phone Aaron Pisano MD Primary Care Provide r Reason for Visit * Reason Comments Med Refill Encounter Details Date Type Department Care Team ([facility] st Contact Info) Description 10/08/2024 Refill [facility] MEDICINE 230 [place] [address] Aaron Pisano MD 230 [place] [address] Diarrhea in adult patient; Chronic midline low [...] the past 12 months, has t he [employer], gas, oil or water company threatened to [...] Description 07/29/2025 2:00 PM EST Telemedicine [facility] CHC MED & PEDS 505 [place] [address] Altagracia Mancilla, RN 505 [place] [address] 08/29/2025 12:45 PM EST Office Visit [facility] ADULT DENTAL 230 [place] [address] Zhanna Henrandez 10/03/2025 10:00 AM EST Office Visit [facility] MEDICINE [address] [place] [address] Aaron Pisano MD 230 [place] [address] documented as of this encounter Goals Goal [...] documented as of this encounter Care Teams Rooming House Inspector Relationship Specialty Start Date End Date Aaron Pisano MD [address] [place] [address] PCP - General Internal Medicine 05/10/14 Antonietta Lim Shirt MakerNumerologist 09/18/24 documented as of this encounter
--- OUTSIDE RECORDS SUMMARY | 2025-07-25 20:01 | XMS_ITS | Encounter Summary ---
Author Organization [employer] Address 75 [facility] 7t [place] [address] Care Team Providers Care Gear Finisher Name Role Phone Aaron Pisano MD Primary Care Provide r Reason for Visit * Reason Comments Med Refill Encounter Details Date Type Department Care Team ([facility] st Contact Info) Description 03/05/2025 Refill [facility] MEDICINE 230 [place] [address] Aaron Pisano MD 230 [place] [address] Chronic midline low back pain without sciatica [...] the past 12 months, has t he [employer] gas, oil or water company threatened to [...] [facility] CHC MED & PEDS 505 [place] [address] Altagracia Mancilla, GRACIELA 505 [place] [address] 08/29/2025 12:45 PM EST Office Visit [facility] ADULT DENTAL 230 [place] [address] Zhanna Hernandez 10/03/2025 10:00 AM EST Office Visit [facility] MEDICINE 230 [place] [address] Aaron Pisano MD 230 [place] [address] documented as of this encounter Goals Goal [...] documented as of this encounter Care Teams Gear Finisher Relationship Specialty Start Date End Date Aaron Pisano MD 230 [place] [address] PCP - General Internal Medicine 05/10/14 Antonietta Lim Typewriter Assembly And Parts InspectorHealth And Wellness Sales Consultant 09/18/24 documented as of this encounter
--- OUTSIDE RECORDS SUMMARY | 2025-07-25 20:01 | XMS_ITS | Encounter Summary ---
Author Organization [employer] Address [address] [place] [address] 7 [place] [address] Care Team Providers Care Logistics Support Name Role Phone Aaron Pisano MD Primary Care Provide r Reason for Visit * Reason Onset Date Comments Med Refill 08/24/2022 Encounter Details Date Type Department Care Team ([facility] st Contact Info) Description 08/24/2022 Telephone [facility] MEDICINE [address] [place] [address] Aaron Pisano MD 230 [place] [address] Med Refill Social History Tobacco Use Types [...] Info) Description 07/29/2025 2:00 PM EST Telemedicine [facility] CHC MED & PEDS 505 [place] [address] Altagracia Mancilla, RN 505 [place] [address] 08/29/2025 12:45 PM EST Office Visit [facility] ADULT DENTAL 230 [place] [address] Zhanna Hernandez 10/03/2025 10:00 AM EST Office Visit [facility] MEDICINE 230 [place] [address] Aaron Pisano MD 230 [place] [address] documented as of this encounter Visit Diagnoses Not on filedocumented in this encounter Care Teams Logistics Support Relationship Specialty Start Date End Date Aaron Pisano MD 230 [place] [address] PCP - General Internal Medicine 05/10/14 Antonietta Lim Health CounselorProfiler Operator 09/18/24 documented as of this encounter
--- OUTSIDE RECORDS SUMMARY | 2025-07-25 20:01 | XMS_ITS | Encounter Summary ---
Author Organization [employer] Address [address] [place] [address] 7 [place] [address] Care Team Providers Care Veterinary Laboratory Diagnostician Name Role Phone Aaron Pisano MD Primary Care Provide r Reason for Visit * Reason Onset Date Comments Med Refill 11/16/2022 Encounter Details Date Type Department Care Team ([facility] st Contact Info) Description 11/16/2022 Telephone [facility] MEDICINE [address] [place] [address] Aaron Pisano MD [address] [place] [address] Med Refill Social History Tobacco Use Types [...] MG immediate release tablet Please sent to [facility] [place], [place] - [address] [place] [address] documented in this encounter Plan of Treatment Upcoming Encounters Date Type Department Care Team (Late st Contact Info) Description 07/29/2025 2:00 PM EST Telemedicine [facility] CHC MED & PEDS 505 [place] [address] Altagracia Mancilla, RN 505 [place] [address] 08/29/2025 12:45 PM EST Office Visit [facility] ADULT DENTAL 230 [place] [address] Zhanna Hernandez 10/03/2025 10:00 AM EST Office Visit [facility] MEDICINE 230 [place] [address] Aaron Pisano MD [address] [place] [address] documented as of this encounter Visit Diagnoses Not on filedocumented in this encounter Care Teams Veterinary Laboratory Diagnostician Relationship Specialty Start Date End Date Aaron Pisano MD [address] [place] [address] PCP - General Internal Medicine 05/10/14 Antonietta Lim Mail CallerCommunications Writer 09/18/24 documented as of this encounter
--- OUTSIDE RECORDS SUMMARY | 2025-07-25 20:01 | XMS_ITS | Encounter Summary ---
Author Organization [employer] Address 75 [facility] 7 [place] [address] Care Team Providers Care Society Reporter Name Role Phone Aaron Pisano MD Primary Care Provide r Reason for Visit * Reason Comments Med Refill Encounter Details Date Type Department Care Team ([facility] st Contact Info) Description 05/07/2024 Refill [facility] MEDICINE 230 [place] [address] Aaron Pisano MD 230 [place] [address] Chronic midline low back pain without sciatica [...] Description 07/29/2025 2:00 PM EST Telemedicine [facility] CHC MED & PEDS 505 [place] [address] Altagracia Mancilla RN 505 [place] [address] 08/29/2025 12:45 PM EST Office Visit [facility] ADULT DENTAL [address] [place] [address] Zhanna Hernandez 10/03/2025 10:00 AM EST Office Visit [facility] MEDICINE 230 [place] [address] Aaron Pisano MD [address] [place] [address] documented as of this encounter Goals Goal [...] documented as of this encounter Care Teams Society Reporter Relationship Specialty Start Date End Date Aaron Pisano MD 230 [place] [address] PCP - General Internal Medicine 05/10/14 Antonietta Lim Liaison PlannerDirector Regulatory Agency 09/18/24 documented as of this encounter
--- OUTSIDE RECORDS SUMMARY | 2025-07-25 20:01 | XMS_ITS | Encounter Summary ---
Author Organization [employer] Address [address] [place] [address] 7 [place] [address] Care Team Providers Care Cattle Care Worker Name Role Phone Aaron Pisano MD Primary Care Provide r Encounter Details Date Type Department Care Team (Latest Contact Info) Description 07/16/2019 Abstract [facility] CONVERSIONS Dental, Provider, DDS Social [...] Description 07/29/2025 2:00 PM EST Telemedicine [facility] CHC MED & PEDS 505 [place] [address] Altagracia Mancilla, GRACIELA 505 [place] [address] 08/29/2025 12:45 PM EST Office Visit [facility] ADULT DENTAL [address] [place] [address] Zhanna Hernandez 10/03/2025 10:00 AM EST Office Visit [facility] MEDICINE [address] [place] [address] Aaron Pisano MD [address] [place] [address] documented as of this encounter Visit Diagnoses Not on filedocumented in this encounter Care Teams Cattle Care Worker Relationship Specialty Start Date End Date Aaron Pisano MD [address] [place] [address] PCP - General Internal Medicine 05/10/14 Antonietta Lim Metal CoaterField Health Officer 09/18/24 documented as of this encounter
--- OUTSIDE RECORDS SUMMARY | 2025-07-25 20:01 | XMS_ITS | Encounter Summary ---
Author Organization [employer] Address 75 [facility] 7 [place] [address] Care Team Providers Care Hand Drawer In Name Role Phone Aaron Pisano MD Primary Care Provide r Reason for Visit * Reason Onset Date Comments Med Refill 03/05/2025 Encounter Details Date Type Department Care Team ([facility] st Contact Info) Description 03/05/2025 Refill [facility] MEDICINE 230 [place] [address] Aaron Pisano MD [address] [place] [address] Chronic midline low back pain without sciatica [...] Description 07/29/2025 2:00 PM EST Telemedicine [facility] CHC MED & PEDS 505 [place] [address] Altagracia Mancilla, RN 505 [place] [address] 08/29/2025 12:45 PM EST Office Visit [facility] ADULT DENTAL 230 [place] [address] Zhanna Hernandez 10/03/2025 10:00 AM EST Office Visit [facility] MEDICINE [address] [place], [place] [phone] Aaron Pisano MD [address] [place] [address] documented as of this encounter Goals Goal [...] as of this encounter Care Teams Hand Drawer In Relationship Specialty Start Date End Date Aaron Pisano MD [address] [place] [address] PCP - General Internal Medicine 05/10/14 Antonietta Lim Purchasing DirectorBody Technician 09/18/24 documented as of this encounter
--- OUTSIDE RECORDS SUMMARY | 2025-07-25 20:01 | XMS_ITS | Encounter Summary ---
Author Organization [employer] Address [address] [place] [address] 7 [place] [address] Care Team Providers Care Journal Box Inspector Name Role Phone Aaron Pisano MD Primary Care Provide r Reason for Visit * Reason Onset Date Comments Med Refill 04/04/2023 Encounter Details Date Type Department Care Team ([facility] st Contact Info) Description 04/04/2023 Telephone [facility] MEDICINE [address] [place] [address] Aaron Pisano MD 230 [place] [address] Med Refill Social History Tobacco Use Types [...] Info) Description 07/29/2025 2:00 PM EST Telemedicine [facility] CHC MED & PEDS 505 [place] [address] Altagracia Mancilla, RN [address] [place], [place] 08/29/2025 12:45 PM EST Office Visit [facility] ADULT DENTAL [address] [place] [address] Zhanna Hernandez 10/03/2025 10:00 AM EST Office Visit [facility] MEDICINE [address] [place], [place] [phone] Aaron Pisano MD 230 [place] [address] documented as of this encounter Goals Goal Patient Goal Type Associated Problems Recent Progress Patient-Stated? Author Blood Pressure < 140/90 Blood Pressure 130/83( 025 3:21 PM EDT) No Giovanna Banks, PharmD documented as of this encounter Visit Diagnoses Not on filedocumented in this encounter Care Teams Journal Box Inspector Relationship Specialty Start Date End Date Aaron Pisano MD 230 [place], [place] [phone] PCP - General Internal Medicine 05/10/14 Antonietta Lim Financial Aid AdvisorBaseball Club Manager 09/18/24 documented as of this encounter
--- OUTSIDE RECORDS SUMMARY | 2025-07-25 20:01 | XMS_ITS | Encounter Summary ---
Author Organization [employer] Address [address] [facility] 7 [place] [address] Care Team Providers Care Performance Engineer Name Role Phone Aaron Pisano MD Primary Care Provide r Reason for Visit * Reason Onset Date Comments Reschedule 03/01/2024 Encounter Details Date Type Department Care Team ([facility] Contact Info) Description 03/01/2024 Telephone [facility] MEDICINE 230 [place] [address] Aaron Pisano MD [address] [place] [address] Reschedule Social History Tobacco Use Types Packs/Day [...] a call back in order to r/s ENVIRONMENTAL FIELD PROFESSIONAL appt documented in this encounter Plan of Treatment Upcoming Encounters Date Type Department Care Team (Late st Contact Info) Description 07/29/2025 2:00 PM EST Telemedicine [facility] CHC MED & PEDS 505 [place] [address] Altagracia Mancilla, RN 505 [place] [address] 08/29/2025 12:45 PM EST Office Visit [facility] ADULT DENTAL 230 [place] [address] Zhanna Hernandez 10/03/2025 10:00 AM EST Office Visit [facility] MEDICINE 230 [place] [address] Aaron Pisano MD 230 [place] [address] documented as of this encounter Goals Goal [...] documented as of this encounter Care Teams Performance Engineer Relationship Specialty Start Date End Date Aaron Pisano MD 230 [place] [address] PCP - General Internal Medicine 05/10/14 Antonietta Lim Piece MakerSpace Systems Operations Superintendent 09/18/24 documented as of this encounter
--- OUTSIDE RECORDS SUMMARY | 2025-07-25 20:01 | XMS_ITS | Encounter Summary ---
Author Organization [employer] Address [address] [facility] 7 [place] [address] Care Team Providers Care Platform Architect Name Role Phone Aaron Pisano MD Primary Care Provide r Reason for Visit * Reason Comments Med Refill Encounter Details Date Type Department Care Team ([facility] st Contact Info) Description 10/06/2023 Refill [facility] MEDICINE 230 [place] [address] Aaron Pisano MD 230 [place] [address] Chronic midline low back pain without sciatica [...] Info) Description 07/29/2025 2:00 PM EST Telemedicine [facility] CHC MED & PEDS 505 [place] [address] Altagracia Mancilla RN 505 [place] [address] 08/29/2025 12:45 PM EST Office Visit [facility] ADULT DENTAL [address] [place] [address] Zhanna Hernandez 10/03/2025 10:00 AM EST Office Visit [facility] MEDICINE 230 [place] [address] Aaron Pisano MD [address] [place] [address] documented as of this encounter Goals Goal [...] documented as of this encounter Care Teams Platform Architect Relationship Specialty Start Date End Date Aaron Pisano MD 230 [place] [address] PCP - General Internal Medicine 05/10/14 Antonietta Lim Network Applications SpecialistWarp Tying Machine Tender 09/18/24 documented as of this encounter
--- OUTSIDE RECORDS SUMMARY | 2025-07-25 20:01 | XMS_ITS | Encounter Summary ---
Author Organization [employer] Address [address] [place] [address] 7 [place] [address] Care Team Providers Care Ice Cream Dispenser Name Role Phone Aaron Pisano MD Primary Care Provide r Reason for Visit * Reason Onset Date Comments Nurse Triage 02/21/2023 Encounter Details Date Type Department Care Team ([facility] st Contact Info) Description 02/21/[address] [facility] MEDICINE [address] [place] [address] Aaron Pisano MD 230 [place] [address] Nurse Triage Social History Tobacco Use Types [...] 4:45 PM EDT Please assist with obtaining [facility] ED discharge notes for 02/10/23. This group underwriter does not have [email or web address] access. Pt sent to ER after visit with [facility]. * Telephone Encounter - Leora Campbell RN - 02/21/2023 4:39 PM EDT Call to Zee Villanueva , reports having vomiting since seen at [facility] ER. Per pt was given abx [...] Center 02/25/2023 9:30 AM DUY Taveras MEDICINE [facility] 03/21/2023 1:00 PM Giovanna Payne PharmD MEDICINE [facility] 04/27/2023 3:00 PM Aniya Anderson RN MEDICINE [facility] Multiple (2) protocols were used on [...] accepted this outcome Please contact pt at [phone] Pt was at [facility] hospital on 02/10/2023 for same symptoms. documented in this encounter Plan of Treatment Upcoming Encounters Date Type Department Care Team (Late st Contact Info) Description 07/29/2025 2:00 PM EST Telemedicine [facility] CHC MED & PEDS 505 [place] [address] Altagracia Mancilla RN 505 [place] [address] 08/29/2025 12:45 PM EST Office Visit [facility] ADULT DENTAL 230 [place] [address] Zhanna Hernandez 10/03/2025 10:00 AM EST Office Visit [facility] MEDICINE 230 [place] [address] Aaron Pisano MD [address] [place] [address] documented as of this encounter Visit Diagnoses Not on filedocumented in this encounter Care Teams Ice Cream Dispenser Relationship Specialty Start Date End Date Aaron Pisano MD [address] [place] [address] PCP - General Internal Medicine 05/10/14 Antonietta Lim Support MerchandiserRn Radiology 09/18/24 documented as of this encounter
--- OUTSIDE RECORDS SUMMARY | 2025-07-25 20:01 | XMS_ITS | Encounter Summary ---
Author Organization [employer] Address [address] [facility] 7 [place] [address] Care Team Providers Care Fence Making Machine Operator Name Role Phone Aaron Pisano MD Primary Care Provide r Reason for Visit * Reason Comments Med Refill Encounter Details Date Type Department Care Team ([facility] st Contact Info) Description 01/30/2024 Refill [facility] MEDICINE 230 [place] [address] Aaron Pisano MD 230 [place] [address] Chronic midline low back pain without sciatica [...] 07/29/2025 2:00 PM EST Telemedicine [facility] CHC MED & PEDS 505 [place] [address] Altagracia Mancilla RN 505 [place] [address] 08/29/2025 12:45 PM EST Office Visit [facility] ADULT DENTAL [address] [place] [address] Zhanna Hernandez 10/03/2025 10:00 AM EST Office Visit [facility] MEDICINE 230 [place] [address] Aaron Pisano MD [address] [place] [address] documented as of this encounter Goals Goal [...] documented as of this encounter Care Teams Fence Making Machine Operator Relationship Specialty Start Date End Date Aaron Pisano MD 230 [place] [address] PCP - General Internal Medicine 05/10/14 Antonietta Lim Public Welfare DirectorNatural Resource Officer 09/18/24 documented as of this encounter
--- OUTSIDE RECORDS SUMMARY | 2025-07-25 20:01 | XMS_ITS | Encounter Summary ---
Author Organization [employer] Address [address] [place] [address] 7 [place] [address] Care Team Providers Care Rfid Analyst Name Role Phone Aaron Pisano MD Primary Care Provide r Reason for Visit * Reason Onset Date Comments Med Refill 11/07/2024 Encounter Details Date Type Department Care Team (Late st Contact Info) Description 11/07/2024 Refill [facility] MEDICINE 230 [place] [address] Aaron Pisano MD 230 [place] [address] Chronic midline low back pain without sciatica; [...] Info) Description 07/29/2025 2:00 PM EST Telemedicine [facility] CHC MED & PEDS 505 [place] [address] Altagracia Mancilla, RN 505 [place] [address] 08/29/2025 12:45 PM EST Office Visit [facility] ADULT DENTAL 230 [place] [address] Zhanna Hernandez 10/03/2025 10:00 AM EST Office Visit [facility] MEDICINE 230 [place] [address] Aaron Pisano MD 230 [place] [address] documented as of this encounter Goals Goal [...] documented as of this encounter Care Teams Rfid Analyst Relationship Specialty Start Date End Date Aaron Pisano MD [address] [place] [address] PCP - General Internal Medicine 05/10/14 Antonietta Lim Hydraulic Jack AdjusterTemplate Maker 09/18/24 documented as of this encounter
--- OUTSIDE RECORDS SUMMARY | 2025-07-25 20:01 | XMS_ITS | Encounter Summary ---
Author Organization [employer] Address 75 [facility] 7 [place] [address] Care Team Providers Care Medicaid Billing Specialist Name Role Phone Aaron Pisano MD Primary Care Provide r Reason for Visit * Reason Onset Date Comments Med Refill 04/02/2025 Encounter Details Date Type Department Care Team ([facility] st Contact Info) Description 04/02/2025 Refill [facility] MEDICINE 230 [place] [address] Aaron Pisano MD 230 [place] [address] Social History Tobacco Use Types Packs/Day Years [...] the past 12 months, has t he [employer], gas, oil or water company threatened to [...] [facility] 505 [place] [address] Altagracia Mancilla, GRACIELA 505 [place] [address] 08/29/2025 12:45 PM EST Office Visit [facility] ADULT DENTAL 230 [place] [address] Zhanna Hernandez 10/03/2025 10:00 AM EST Office Visit [facility] MEDICINE 230 [place] [address] Aaron Pisano MD 230 [place] [address] documented as of this encounter Goals Goal [...] documented as of this encounter Care Teams Medicaid Billing Specialist Relationship Specialty Start Date End Date Aaron Pisano MD [address] [place] [address] PCP - General Internal Medicine 05/10/14 Antonietta Lim Special Agent Secret ServiceAircraft Electrical Systems Specialist 09/18/24 documented as of this encounter
--- OUTSIDE RECORDS SUMMARY | 2025-07-25 20:01 | XMS_ITS | Encounter Summary ---
Author Organization [employer] Address [address] [place] [address] 7 [place] [address] Care Team Providers Care Glue Jointer Operator Name Role Phone Aaron Pisano MD Primary Care Provide r Reason for Visit * Reason Onset Date Comments Med Refill 09/14/2022 Encounter Details Date Type Department Care Team (Late st Contact Info) Description 09/14/2022 Telephone [facility] MEDICINE 230 [place] [address] Aaron Pisano MD 230 [place] [address] Med Refill Social History Tobacco Use Types [...] 07/29/2025 2:00 PM EST Telemedicine [facility] CHC MED & PEDS 505 [place] [address] Altagracia Mancilla, RN 505 [place] [address] 08/29/2025 12:45 PM EST Office Visit [facility] ADULT DENTAL 230 [place] [address] Zhanna Hernandez 10/03/2025 10:00 AM EST Office Visit [facility] MEDICINE 230 [place] [address] Aaron Pisano MD 230 [place] [address] documented as of this encounter Visit Diagnoses Not on filedocumented in this encounter Care Teams Glue Jointer Operator Relationship Specialty Start Date End Date Aaron Pisano MD [address] [place] [address] PCP - General Internal Medicine 05/10/14 Antonietta Lim Power Generation Equipment RepairerPharmacy Consultant 09/18/24 documented as of this encounter
--- OUTSIDE RECORDS SUMMARY | 2025-07-25 20:01 | XMS_ITS | Encounter Summary ---
Author Organization [employer] Address [address] [facility] 7t [place] [address] Care Team Providers Care Rail Car Welder Name Role Phone Aaron Pisano MD Primary Care Provide r Reason for Visit * Reason Comments Med Refill Encounter Details Date Type Department Care Team ([facility] st Contact Info) Description 04/04/2025 Refill [facility] MEDICINE 230 [place] [address] Aaron Pisano MD 230 [place] [address] Chronic midline low back pain without sciatica [...] the past 12 months, has t he [employer], gas, oil or water company threatened to [...] Info) Description 07/29/2025 2:00 PM EST Telemedicine [facility] CHC MED & PEDS 505 [place] [address] Altagracia Mancilla, GRACIELA 505 [place] [address] 08/29/2025 12:45 PM EST Office Visit [facility] ADULT DENTAL 230 [place] [address] Zhanna Hernandez 10/03/2025 10:00 AM EST Office Visit [facility] MEDICINE 230 [place] [address] Aaron Pisano MD 230 [place] [address] documented as of this encounter Goals Goal [...] documented as of this encounter Care Teams Rail Car Welder Relationship Specialty Start Date End Date Aaron Pisano MD 230 [place] [address] PCP - General Internal Medicine 05/10/14 Antonietta Lim Paramedic InstructorEmbalmer/Funeral Director 09/18/24 documented as of this encounter
--- OUTSIDE RECORDS SUMMARY | 2025-07-25 20:01 | XMS_ITS | Encounter Summary ---
Author Organization [employer] Address [address] [place] [address] 7 [place] [address] Care Team Providers Care Legal Receptionist Name Role Phone Aaron Pisano MD Primary Care Provide r Reason for Visit * Reason Onset Date Comments Med Refill 04/02/2025 Encounter Details Date Type Department Care Team ([facility] st Contact Info) Description 04/02/[address] [facility] MEDICINE 230 [place] [address] Aaron Pisano MD 230 [place] [address] Diarrhea in adult patient Social History Tobacco [...] the past 12 months, has t he [employer], gas, oil or water company threatened to [...] 2:00 PM EST Telemedicine [facility] CHC MED & PEDS 505 [place] [address] Altagracia Mancilla, RN 505 [place] [address] 08/29/2025 12:45 PM EST Office Visit [facility] ADULT DENTAL 230 [place] [address] Zhanna Hernandez 10/03/2025 10:00 AM EST Office Visit [facility] MEDICINE [address] [place], [place] [phone] Aaron Pisano MD 230 [place] [address] documented as of this encounter Goals Goal [...] documented as of this encounter Care Teams Legal Receptionist Relationship Specialty Start Date End Date Aaron Pisano MD 230 [place] [address] PCP - General Internal Medicine 05/10/14 Antonietta Lim Car Body DesignerFinish Mill Operator 09/18/24 documented as of this encounter
--- OUTSIDE RECORDS SUMMARY | 2025-07-25 20:02 | XMS_ITS | Encounter Summary ---
Author Organization [employer] Address 75 [facility] 7t [place] [address] Care Team Providers Care Poured Wall Foreman Name Role Phone Aaron Pisano MD Primary Care Provide r Reason for Visit * Reason Comments Med Refill Encounter Details Date Type Department Care Team ([facility] st Contact Info) Description 04/05/2025 Refill [facility] MEDICINE 230 [place] [address] Aaron Pisano MD 230 [place] [address] Chronic midline low back pain without sciatica [...] the past 12 months, has t he [email or web address] gas, oil or water company threatened to [...] Info) Description 07/29/2025 2:00 PM EST Telemedicine [facility] CHC MED & PEDS 505 [place] [address] Altagracia Mancilla, GRACIELA 505 [place] [address] 08/29/2025 12:45 PM EST Office Visit [facility] ADULT DENTAL 230 [place] [address] Zhanna Hernandez 10/03/2025 10:00 AM EST Office Visit [facility] MEDICINE 230 [place] [address] Aaron Pisano MD [address] [place] [address] documented as of this encounter Goals Goal [...] documented as of this encounter Care Teams Poured Wall Foreman Relationship Specialty Start Date End Date Aaron Pisano MD [address] [place] [address] PCP - General Internal Medicine 05/10/14 Antonietta Lim Dog Track Kennel ManagerRadio Interference Trouble Shooter 09/18/24 documented as of this encounter
--- OUTSIDE RECORDS SUMMARY | 2025-07-25 20:02 | XMS_ITS | Encounter Summary ---
Author Organization [employer] Address 75 [facility] 7t [place] [address] Care Team Providers Care Database Dba Name Role Phone Aaron Pisano MD Primary Care Provide r Reason for Visit * Reason Comments Med Refill Encounter Details Date Type Department Care Team ([facility] st Contact Info) Description 07/04/[address] [facility] CHC MED & PEDS [address] [place], [place] [phone] Sumi Vang, ANP 230 [place] [address] Social History Tobacco Use Types Packs/Day Years [...] 2:00 PM EST Telemedicine [facility] CHC MED & PEDS 505 [place] [address] Altagracia Mancilla, RN 505 [place] [address] 08/29/2025 12:45 PM EST Office Visit [facility] ADULT DENTAL 230 [place] [address] Zhanna Hernandez 10/03/2025 10:00 AM EST Office Visit [facility] MEDICINE 230 [place] [address] Aaron Pisano MD [address] [place] [address] documented as of this encounter Goals Goal Patient Goal Type Associated Problems Recent Progress Patient-Stated? Author Blood Pressure < 140/90 Blood Pressure 130/83( 025 3:21 PM EDT) No Piers-Gambl e, Giovanna, PharmD documented as of this encounter Visit Diagnoses Not on filedocumented in this encounter Care Teams Database Dba Relationship Specialty Start Date End Date Aaron Pisano MD 230 [place] [address] PCP - General Internal Medicine 05/10/14 Antonietta Lim Roofing ApplicatorAssociate Program Manager 09/18/24 documented as of this encounter
--- OUTSIDE RECORDS SUMMARY | 2025-07-25 20:02 | XMS_ITS | Encounter Summary ---
Author Organization [employer] Address 75 [facility] 7t [place] [address] Care Team Providers Care Personal Care Worker Name Role Phone Aaron Pisano MD Primary Care Provide r Reason for Visit * Reason Onset Date Comments Med Refill 05/02/2025 Encounter Details Date Type Department Care Team (Late st Contact Info) Description 05/02/2025 Refill [facility] CHC MED & PEDS [address] [place] [address] Aaron Pisano MD 230 [place] [address] Chronic midline low back pain without sciatica [...] MEDICAL CENTER CHC MED & PEDS 505 [place] [address] Altagracia Mancilla, RN 505 [place] [address] 08/29/2025 12:45 PM EST Office Visit [facility] ADULT DENTAL 230 [place] [address] Zhanna Hernandez 10/03/2025 10:00 AM EST Office Visit [facility] MEDICINE 230 [place] [address] Aaron Pisano MD [address] [place] [address] documented as of this encounter Goals Goal [...] documented as of this encounter Care Teams Personal Care Worker Relationship Specialty Start Date End Date Aaron Pisano MD [address] [place] [address] PCP - General Internal Medicine 05/10/14 Antonietta Lim Financial DirectorWater Supervisor 09/18/24 documented as of this encounter
--- OUTSIDE RECORDS SUMMARY | 2025-07-25 20:02 | XMS_ITS | Encounter Summary ---
Author Organization [employer] Address 75 [facility] 7 [place] [address] Care Team Providers Care Product Development Worker Name Role Phone Aaron Pisano MD Primary Care Provide r Reason for Visit * Reason Onset Date Comments Med Refill 02/05/2025 Encounter Details Date Type Department Care Team ([facility] st Contact Info) Description 02/05/2025 Refill [facility] CHC MED & PEDS 505 [place] [address] Fam Hartman MD 505 [place] [address] Chronic midline low back pain without sciatica [...] Description 07/29/2025 2:00 PM EST Telemedicine [facility] CHC MED & PEDS 505 [place] [address] Altagracia Mancilla, RN 505 [place] [address] 08/29/2025 12:45 PM EST Office Visit [facility] ADULT DENTAL 230 [place] [address] Zhanna Hernandez 10/03/2025 10:00 AM EST Office Visit [facility] MEDICINE 230 [place] [address] Aaron Pisano MD 230 [place] [address] documented as of this encounter Goals Goal [...] as of this encounter Care Teams Product Development Worker Relationship Specialty Start Date End Date Aaron Pisano MD [address] [place] [address] PCP - General Internal Medicine 05/10/14 Antonietta Lim Salesforce ConsultantJockey Valet 09/18/24 documented as of this encounter
--- OUTSIDE RECORDS SUMMARY | 2025-07-25 20:02 | XMS_ITS | Encounter Summary ---
Author Organization [employer] Address [address] [place] [address] 7 [place] [address] Care Team Providers Care Club Concierge Name Role Phone Aaron Pisano MD Primary Care Provide r Reason for Visit * Reason Onset Date Comments Med Refill 08/12/2024 Encounter Details Date Type Department Care Team ([facility] st Contact Info) Description 08/12/2024 Refill [facility] MEDICINE 230 [place] [address] Aaron Pisano MD [address] [place] [address] Social History Tobacco Use Types Packs/Day Years [...] [facility]S 505 [place] [address] Altagracia Mancilla, RN 505 [place] [address] 08/29/2025 12:45 PM EST Office Visit [facility] ADULT DENTAL 230 [place] [address] Zhanna Hernandez 10/03/2025 10:00 AM EST Office Visit [facility] MEDICINE [address] [place] [address] Aaron Pisano MD [address] [place] [address] documented as of this encounter Goals Goal [...] documented as of this encounter Care Teams Club Concierge Relationship Specialty Start Date End Date Aaron Pisano MD [address] [place] [address] PCP - General Internal Medicine 05/10/14 Antonietta Lim Relief Map ModelerCombine Mechanic 09/18/24 documented as of this encounter
--- OUTSIDE RECORDS SUMMARY | 2025-07-25 20:02 | XMS_ITS | Encounter Summary ---
Author Organization for[MD] [employer] Address [address] [facility] 7 [place] [address] Care Team Providers Care Industrial Paramedic Name Role Phone Aaron Pisano MD Primary Care Provide r Reason for Visit * Reason Comments Med Refill Encounter Details Date Type Department Care Team ([facility] st Contact Info) Description 07/07/2023 Refill [facility] MEDICINE [address] [place] [address] Aaron Pisano MD [address] [place] [address] Social History Tobacco Use Types Packs/Day Years [...] Info) Description 07/29/2025 2:00 PM EST Telemedicine [facility] CHC MED & PEDS [address] [place] [address] Altagracia Mancilla RN [address] [place] [address] 08/29/2025 12:45 PM EST Office Visit [facility] ADULT DENTAL [address] [place] [address] Zhanna Hernandez 10/03/2025 10:00 AM EST Office Visit [facility] MEDICINE [address] [place] [address] Aaron Pisano MD [address] [place] [address] documented as of this encounter Goals Goal Patient Goal Type Associated Problems Recent Progress Patient-Stated? Author Blood Pressure < 140/90 Blood Pressure 130/83( 025 3:21 PM EDT) No Piers-Gambl Giovanna lozano, PharmD documented as of this encounter Visit Diagnoses Not on filedocumented in this encounter Care Teams Industrial Paramedic Relationship Specialty Start Date End Date Aaron Pisano MD [address] [place] [id number] PCP - General Internal Medicine 05/10/14 Antonietta Lim Outside Plant Field EngineerSenior Mechanical Designer 09/18/24 documented as of this encounter
--- OUTSIDE RECORDS SUMMARY | 2025-07-25 20:02 | XMS_ITS | Encounter Summary ---
Author Organization [employer] Address [address] [facility] [address] [place] [address] Care Team Providers Care Abstract Searcher Name Role Phone Aaron Pisano MD Primary Care Provide r Reason for Visit * Reason Comments Med Refill Encounter Details Date Type Department Care Team ([facility] st Contact Info) Description 08/09/2023 Refill [facility] MEDICINE [address] [place] [address] Sumi Vang, ANP [address] [place] [address] Chronic midline low back pain without sciatica [...] Description 07/29/2025 2:00 PM EST Telemedicine [facility] CHC MED & PEDS [address] [place] [address] Altagracia Mancilla RN [address] [place] [address] 08/29/2025 12:45 PM EST Office Visit [facility] ADULT DENTAL [address] [place] [address] Zhanna Hernandez 10/03/2025 10:00 AM EST Office Visit [facility] MEDICINE [address] [place] [address] Aaron Pisano MD [address] [place] [address] documented as of this encounter Goals Goal Patient Goal Type Associated Problems Recent Progress Patient-Stated? Author Blood Pressure < 140/90 Blood Pressure 130/83( 025 3:21 PM EDT) No Giovanna Banks, PharmD documented as of this encounter Visit Diagnoses Diagnosis Chronic midline low back pain without sciatica documented in this encounter Care Teams Abstract Searcher Relationship Specialty Start Date End Date Aaron Pisano MD [address] [place] [address] PCP - General Internal Medicine 05/10/14 Antonietta Lim Air Traffic SupervisorIndian Trader 09/18/24 documented as of this encounter
--- OUTSIDE RECORDS SUMMARY | 2025-07-25 20:02 | XMS_ITS | Clinical Summary ---
Author Organization [employer] Address [address] [place] [address] 7[address] [place] [address] Care Team Providers Care Stamp Redemption Clerk Name Role Phone Aaron Pisano MD [...] tablet 1 5 5:43 PM EST 06/20/20 25 Active baclofen (Lioresal) 10 MG tabletIndicat ions:Chronic bilateral low back pain without sciatica TAKE 1 TABLET BY MOUTH TWICE DAILY IN THE MORNING AND IN THE EVENING NEEDED FOR MUSCLE SPASMS 60 tablet 1 5 5:43 PM EST 07/02/20 25 Active diphenhydrAMI NE (Laureen-Dryl) 25 MG tabletIndicat ions:Intracta ble vomiting with nausea TAKE 1 TABLET BY MOUTH THREE TIMES DAILY BEFORE FOOD NEEDED FOR NAUSEA AND VOMITING 90 tablet 1 5 5:43 PM EST 07/02/20 25 Active oxyCODONE (Roxicodone) 5 MG immediate release tabletIndicat ions:Chronic midline low back pain without sciatica Take 1 tablet (5 mg) by mouth every 12 (twelve) hours if needed for severe pain. 56 tablet 5 5:43 PM EST 07/02/20 25 Active baclofen (Lioresal) 10 MG tabletIndicat [...] Prednisone. She is under the care of Credit Risk Review Officer Dr. Reagan Alfaro last note [phone] He recommended to: Monitor given that There is no serological evidence of systemic vasculitis. If she has a recurrence within the next year I think it would warrant immunosuppressive treatment at that time. 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 She is under the care of Credit Risk Review Officer Dr Newberry. She is on Prednisone 2 [...] psychotherapist and a psychiatrist Dr. Gregory. At [facility] Pt is on: Hydroxyzine, Ambien, Assessment & Plan (08/23/2023 2:06 PM EST): Pt under the care of a psychotherapist and a psychiatrist. At [facility] Pt is no longer on Abilify nor Clonidine. She is now on Geodon Assessment & Plan (08/03/2022 9:22 AM EST): Pt under the care of a psychotherapist and a psychiatrist. At [facility] started on Abilify 7.5 mg po daily [...] most recently seen by Dr Rodas at [facility] 06/15/2024 who recommended PRN follow up Assessment [...] (07/02/2025 9:21 AM EST): Previously referred to [facility] Comprehensive weight management program. Seen twice, they prompter to discuss with her mental health provider her eating habits before they would consider accepting her into the program. Pt would like to discuss GLP1s for weight loss next time she comes in Assessment & Plan (08/23/2023 1:51 PM EST): Previously referred to [facility] Comprehensive weight management program. Seen twice, they prompter to discuss with her mental health provider her eating habits before they would consider accepting her into the program Assessment & Plan (12/30/2022 3:28 PM EDT): Previously referred to [facility] Comprehensive weight management program Assessment & Plan (08/03/2022 1:48 PM EST): Referred to [facility] Comprehensive weight management program Genital herpes simplex [...] EST): Under the care of Dr James Clay Processing Labourer , last seen 05/30/2025 No recent exacerbations Overactive bladder 01/20/2012 Polycystic ovarian syndrome 01/20/2012 Assessment & Plan (08/03/2022 9:18 AM EST): Seen in the past by an Microscopist (Dr. Dozier) Under the care of Clare Carlin The last US on record done at [facility] 01/2019 showed a hypoechoic well circumscribed solid [...] Encounters Date Type Department Care Team Description 07/23/2025 Travel 07/09/2025 Orders Only GENERIC EXTERNAL DATA DEPARTMENT Provider, Generic External Data 07/02/2025 9:00 AM EST Telemedicine [facility] [address] [place] [address] Aaron Pisano MD Chronic midline low back pain without sciatica (Primary Dx); Mild intermittent asthma without complication; Severe obesity (CMS/HCC) (HCC); Migraine without aura and without status migrainosus, not intractable; Chronic bilateral low back pain without sciatica; Intractable vomiting with nausea 07/02/2025 Travel 07/01/2025 Refill [facility] [address] [place] [address] Aaron Pisano MD Chronic bilateral low back pain without sciatica; Chronic midline low back pain without sciatica; Intractable vomiting with nausea 06/26/2025 Travel 06/19/2025 Refill [facility] [address] [place] [address] Aaron Pisano MD Seasonal allergies 06/11/2025 Patient Outreach [facility] [address] [place] [address] Aaron Pisano MD Care Coordination (CHW outreach for SDOH PT-1 and food needs-referral completed /) 06/11/2025 Telephone [facility] [address] [place] [address] Aaron Pisano MD PT-1 06/04/2025 Refill [facility] [address] [place] [address] Aaron Pisano MD Cough in adult patient 06/03/2025 Refill [facility] [address] [place] [address] Aaron Pisano MD Chronic midline low back pain without sciatica 06/03/2025 Telephone [facility] [address] [place] [address] Aaron Pisano MD Med Refill 06/03/2025 Refill [facility] [address] [place] [address] Aaron Pisano MD Chronic midline low back pain without sciatica 05/31/2025 11:30 AM EDT Clinical Support [facility] [address] [place] [address] Altagracia Mancilla, data acquisition technician midline low back pain without sciatica (Primary Dx) 05/31/2025 Travel 05/24/2025 Refill [facility] D[facility] [address] [place] [address] Miki Sarkar DDS 05/24/2025 Travel 05/24/2025 Patient Outreach [facility] [address] [place] [address] Aaron Pisano MD Care Coordination (CHW outreach for SDOH PT-1 and food needs-referral completed /) 05/24/2025 Telephone [facility] [address] [place] [phone] Aaron Pisano MD Pt-1 05/15/2025 Patient Outreach [facility] [address] [place] [phone] Aaron Pisano MD Care Coordination (CHW outreach for SDOH PT-1 and food needs-referral completed /) 05/15/2025 Telephone [facility] [address] [place] [phone] Aaron Pisano MD PT-1 05/09/2025 Refill [facility] [address] [place] [phone] Aaron Pisano MD Seasonal allergies 05/08/2025 3:00 PM EDT Office Visit [facility] [address] [place] [phone] Rodo Bocanegra MD Fatigue, unspecified type (Primary Dx); Fever and chills 05/08/2025 11:00 AM EDT Office Visit [facility] [address] [place] [phone] Miki Sarkar DDS Excessive attrition of teeth (Primary Dx) 05/08/2025 Orders Only GENERIC EXTERNAL DATA DEPARTMENT Provider, Generic External Data 05/08/2025 Travel 05/03/2025 Orders Only [facility] External Provider, [facility] 05/02/2025 Refill [facility] [address] [place], [place] [phone] Aaron Pisano MD Chronic midline low back pain without sciatica 05/02/2025 Refill [facility] [address] [place] [address] Aaorn Pisano MD Chronic midline low back pain without sciatica 05/01/2025 Refill [facility] [address] [place] [address] Aaron Pisano MD 05/01/2025 Refill [facility] [address] [place] [address] Aaron Pisano MD Diarrhea in adult patient 05/01/2025 Travel from Last 3 Months Immunizations Immunization [...] [facility] [address] [place] [address] Altagracia Mancilla, GRACIELA [address] [place] [address] 08/29/2025 12:45 PM EST Office Visit [facility] [address] [place] [address] Zhanna Hernandez 10/03/2025 10:00 AM EST Office Visit [facility] [address] [place] [address] Aaron Pisano MD [address] [place] [address] Health Maintenance Due Date Last Done Comments CT Colonography 1977 FIT DNA/Cologuard 1977 FIT 1977 FOBT 1975 Sigmoidoscopy 1977 Alcohol/Substance Use Screening 1989 Family Planning (PISQ) 1992 Pap Smear 1998 Cervical Cancer Screening 2007 HPV/Cotest 2007 Dental X-Ray: Bitewings 01/24/2025 01/24/2024, 11/30 COVID-19 Vaccine (2024- season) 2025 11/15/2020 Influenza Vaccine (#1) 2025 Depression Screening 06/05/2025 06/05/2024, 06/05/20 24 Dental Oral Exam 08/15/2025 02/11/2025, , 01/24/2024, Additional history exists Dental Prophylaxis 08/15/2025 02/11/2025, 1 09/26/2023, 01/24/2024, Additional history exists SDOH Screening 08/24/2025 08/24/2024 Dental X-Ray: Full Mouth 12/01/2025 11/30/2022, 11/0 03/2021 Disability Screening 01/07/2026 01/07/2025 Mammogram 02/20/2026 02/20/2025, 07/1 01/2025, 01/26/2024, Additional history exists Tobacco Screening 05/08/2026 [...] WO CONTRAST Routine 05/03/2025 4:22 PM EDT BI MAMMOGRAM SCREENING TOMOSYNTHESIS BILATERAL [...] PM EST) Carbon Monoxide POC 2.5 % [facility] Comment:CARBON MONOXIDE REFE RENCE RANGE: NON [...] CARE TEST DOCKED DEVICE ORDERABLES Final Result [facility] [address] [place] [phone] * TSH with Reflex to Free T4 (07/09/2025 1:07 PM EST) Only the most recent of3 resultswithin the time period is included. TSH reflex Free T4 4.00 0.32 - 4.0 uIU/mL [facility] 07/09/2025 1:07 PM EST 07/09/2025 1:07 PM EST Generic External Data Provider LAB BLOOD ORDERAB LES Final Result [facility] [address] [place] [address] [phone] * Referral to Infectious Disease (06/11/2025) [...] - 05/31/2025 11:41 AM EDT .UTOX cup Lot#[id number] Exp. 05/14/26 Internal Pass Control Aaron Harris MD POINT OF CARE TEST EN TER/EDIT ORDERABLES Final Result * Vitamin D, 25-Hydroxy, Total, Immunoassay (05/30/2025 1:22 PM EDT) Only the most recent of2 resultswithin the time period is included. Vitamin D 25-OH Total 49.9 >30 ng/mL [facility] Comment: Health Based Reference Values*< 20 ng/mL Nwjpovopy20-74 ng/mL Insufficient> 30 ng/mL Sufficient*Cielo TINEO. N [...] MD LAB BLOOD ORDERABLES Final Resul t [facility] [address] [place] [phone] * ANCA Vasculitides (05/08/2025 12:41 PM EDT) Myeloperoxidase Antibody <1.0 [facility] Comment:Value Interpretation ----- <1.0 No Antibody Detected > or = 1.0 Antibody DetectedAutoantibodies to myeloperoxidase (MPO) are commonlyassociated with the following small-vesselvasculitides: microscopic polyangiitis,polyarteritis nodosa, Churg-Chen syndrome,necrotizing and crescentic glomerulonephritis andoccasionally granulomatosis with polyangiitis(GPA, Marissa's). The perinuclear IFA pattern,(p-ANCA) is based largely on autoantibody tomyeloperoxidase which serves as the primary antigen.These autoantibodies are present in active disease. Proteinase-3 Antibody <1.0 AI [facility] Comment:Value Interpretation ----- <1.0 No Antibody Detected > or = 1.0 Antibody DetectedAutoantibodies to proteinase-3 (WA-3) are accepted ascharacteristic for granulomatosis with polyangiitis(GPA, Marissa's), and are detectable in 95% of thehistologically proven cases. The cytoplasmic IFApattern, (c-ANCA), is based largely on autoantibody toPR-3 which serves as the primary antigen.These autoantibodies are present in active disease.THIS TEST WAS PERFORMED AT:[facility] [place] [id number] REDMOND MD 05/08/2025 12:4 1 PM EDT 05/08/2025 4:00 PM EDT us Generic External Data Provider LAB BLOOD ORDERAB LES Final Result [facility] [address] [place] [phone] * (ABNORMAL) CBC auto differential (05/08/2025 12:41 PM EDT) Only the most recent of3 resultswithin the time period is included. White Blood Count 11.7(H) 4.8 - 10.8 X10*3/uL [facility] Red Blood Count 4.88 4.20 - 5.50 X10*6/uL [facility] Hemoglobin 13.4 12.0 - 16.0 g/dl [facility] Hematocrit 40.0 37.0 - 47.0 % [facility] Mean Corpuscular Volume 82.0 80.0 - 98.0 fL [facility] Mean Corpuscular Hemoglobin 27.5 27.0 - 33.0 pg [facility] Mean Corpuscular HGB Conc 33.5 31.0 - 35.0 g/dl [facility] Red Cell Distribution Width 15.2 11.0 - 16.0 % [facility] Platelet Count 338 160 - 400 X10*3/uL [facility] Mean Platelet Volume 10.1 9.4 - 12.3 fL [facility] Neutrophils Percent Auto 67.7 45 - 73 % [facility] Imm Gran Pct Auto 0.5(H) 0.0 - 0.4 % [facility] Lymphocytes Percent Auto 20.4 20 - 40 % [facility] Monocytes Percent Auto 6.9 2 - 11 % [facility] Eosinophils Percent Auto 3.2 0 - 4 % [facility] Basophils Percent Auto 1.3 0 - 2 % [facility] NRBC Pct Auto 0.0 0.0 - 0.2 /100WBC [facility] Neutrophils Absolute Auto 7.9 2.0 - 8.3 x10*3/uL [facility] Imm Gran Abs Auto 0.06(H) 0.00 - 0.03 X10*3/uL [facility] Lymphocytes Absolute Auto 2.4 1.2 - 4.9 X10*3/uL [facility] Monocytes Absolute Auto 0.8 0.1 - 1.2 X10*3/uL [facility] Eosinophils Absolute Auto 0.4 0.0 - 0.4 X10*3/uL [facility] Basophils Absolute Auto 0.2 0.0 - 0.2 X10*3/uL [facility] NRBC Abs Auto 0.000 0.0 - 0.012 X10*3/uL [facility] 05/08/2025 12:4 1 PM EDT 05/08/2025 4:00 PM EDT us Generic External Data Provider LAB BLOOD ORDERAB LES Final Result [facility] [address] [place] [phone] * Cryoglobulin (% Cryocrit), Serum (05/08/2025 12:41 PM EDT) Cryoglobulin, Ql, Serum, Rflx Negative Negative [facility] Comment:The Cryocrit is prim arily intended for following apatient with previously defined and quantitatedcryoglobulins. The cryocrit may consist ofcryoglobulins, fibrins, complement, or mixtures ofthese.THIS TEST WAS PERFORMED AT:[id number] [place] [id number] CARRANZA MD,PHD % Cryocrit TNP [facility] 05/08/2025 12:4 1 PM EDT 05/08/2025 4:00 PM EDT Generic External Data Provider LAB BLOOD ORDERAB LES Final Result Performing Organization Address [facility] Co de Phone Number [facility] [address] [place] [phone] * (ABNORMAL) Sed Rate by Modified Wildergren (05/08/2025 12:41 PM EDT) Pathologist [facility] Erythrocyte Sedimentation Rate 38(H) 0 - 20 MM/HR [facility] Comment:Patients with polycy themia and many hemoglobin abnormalitiesmay have depressed sed rates whereas patients with anemiamay have elevated sed rates. 05/08/2025 12:4 1 PM EDT 05/08/2025 4:00 PM EDT us Generic External Data Provider LAB BLOOD ORDERAB LES Final Result Performing Organization Address [facility] Co de Phone Number [facility] [address] [place] [phone] * (ABNORMAL) C-reactive Protein (05/08/2025 12:41 PM EDT) Only the most recent of2 resultswithin the time period is included. Pathologist [facility] C Reactive Protein 2.00(H) < or = 0.50 mg/dL [facility] 05/08/2025 12:4 1 PM EDT 05/08/2025 4:00 PM EDT us Generic External Data Provider LAB BLOOD ORDERAB LES Final Result [facility] [address] [place] [phone] * Comprehensive Metabolic Panel (05/08/2025 12:41 PM EDT) Only the most recent of3 resultswithin the time period is included. Sodium 142 135 - 145 mmol/L [facility] Potassium 3.3 3.3 - 5.1 mmol/L [facility] Chloride 103 96 - 108 mmol/L [facility] Carbon Dioxide 29 22 - 29 mmol/L [facility] Anion Gap 13 12 - 20 [facility] Urea Nitrogen (BUN) 16 9 - 16 mg/dL [facility] Creatinine, Serum 0.98 0.5 - 1.4 mg/dL [facility] Estimated Glomerular Filt Rate >60 [facility] Comment:Chronic Kidney Disea se: Estimated GFR < 60 mL/min/1.06e2Phvfbx Kidney Disease: Estimated GFR < 15 mL/min/1.73m2 Glucose 98 60 - 115 mg/dL [facility] Calcium 9.7 8.4 - 10.2 mg/dL [facility] Bilirubin, Total 0.4 0.0 - 1.0 mg/dL [facility] Aspartate Amino Transferase 22 5 - 31 U/L [facility] Alanine Aminotransferase 18 0 - 31 U/L [facility] Total Protein 7.8 6.5 - 8.0 g/dL [facility] Albumin Level 4.5 3.5 - 5.0 g/dL [facility] Alkaline Phosphatase 101 39 - 117 U/L [facility] 05/08/2025 12:4 1 PM EDT 05/08/2025 4:00 PM EDT us Generic External Data Provider LAB BLOOD ORDERAB LES Final Result Performing Organization Address City/[facility]/ZIP Co de Phone Number [facility] [address] [place] [phone] * CT Sinus w/o Contrast (05/03/2025 4:22 PM EDT) Anatomical Region Laterality Modality Computed Tomogra phy 05/03/2025 4:22 PM EDT Narrative 05/03/2025 5:14 PM EDT [address] [address] [address] Scan Report Signed Patient: Zee Villanueva MR#: [id number] : 1975 Acct:[id number] Age/Sex: 49 / F ADM Date: 05/03/25 Loc: HO.CT Attending Dr: Kerry James MD Ordering Physician: Kerry James MD Date of Service: 05/03/25 Procedure(s): CT sinus wo IV con Accession Number(s): [id number] cc: Kerry James MD; Aaron Carcamo MD Report Number: [id number]: Total DLP = 92.00 mGy-cm Reason for [...] 05/03/25 1711 DD/ 1622 TD/TT: 05/03/25 1640 Physiologist: Procedure Note Donotuseinterpreter, Image - 05/03/[address] [place] [address] [address] Scan Report Signed Patient: Zee Villanueva AMR#: [id number] : 1975Acct:[id number] Age/Sex: 49 / FADM Date: 05/03/25 Loc: HO.CT Attending Dr: Kerry James MD Ordering Physician: Kerry James MD Date of Service: 05/03/25 Procedure(s): CT sinus wo IV con Accession Number(s): [id number] cc: Kerry James MD; Aaron Carcamo MD Report Number: [id number]: Total DLP = 92.00 mGy-cm Reason for [...] 05/03/25 1711 DD/ 1622 TD/TT: 05/03/25 1640 Physiologist: [facility] External Provider IMG CT PROCEDURES Final Result * BI Mammogram Screening Tomosynthesis Bilateral (02/20/2025 2:30 PM EDT) Anatomical Region Laterality Modality Breast Bilateral Mammography 02/20/2025 2:30 PM EDT Narrative 03/01/2025 8:13 PM EDT [facility] [address] [place], [place] [address] Mammography Report Signed Patient: Zee Villanueva MR#: [id number] : 1975 Acct:[id number] Age/Sex: 49 / F ADM Date: 02/20/25 Loc: HO.MAMMO Attending Dr: Aaron Carcamo MD Ordering Physician: Aaron Carcamo MD Resu lts: 1Negative Date of Service: 02/20/25 Follow Up: 1 Year From Orig ina Mammogram Procedure(s): MM tomosynthesis screening BI Accession Number(s): [id number] cc: Aaron Carcamo MD EXAMINATION: MM SCREENING [...] OV> 03/01/252009 DD/ 1430 TD/TT: 02/20/25 1510 Physiologist: Procedure Note Donotaleydainterpreter, Image - [facility] [address] [place] [address] Mammography Report Signed Patient: Zee Villanueva AMR#: [id number] : 1975Acct:[id number] Age/Sex: 49 / FADM Date: 02/20/25 Loc: HO.MAMMO Attending Dr: Aaron Carcamo MD Ordering Physician: Aaron Carcamo MDResu lts: 1Negative Date of Service: 02/20/25Follow Up: 1 Year From Orig inal Mammogram Procedure(s): MM tomosynthesis screening BI Accession Number(s): [id number] cc: Aaron Carcamo MD EXAMINATION: MM SCREENING [...] OV> 03/01/252009 DD/ 1430 TD/TT: 02/20/25 1510 Physiologist: us Aaron Harris MD IMG BI PROCEDURES Satya lauren Result - Final * Hepatitis Panel, General (12/28/2024 2:24 PM EDT) Hepatitis A IgM Nonreactive Nonreactive [facility] Comment:IgM antibodies to LUTHER V not detected; does not exclude earlyacute or recovered HAV infection. ~Hepatitis B Surface Antibody NONREACTIVE Nonreactive [facility] Comment:Nonreactive: < 8.00 mIU/mL Hepatitis B Core Antibody Nonreactive Nonreactive [facility] Hepatitis C Antibody Nonreactive Nonreactive [facility] Comment:Antibodies to HCV no t detected; does not exclude early acuteHCV infection. Hepatitis B Surface Ag Negative Negative [facility] 12/28/2024 2:24 PM EDT 12/28/2024 2:26 PM EDT us Generic External Data Provider LAB BLOOD ORDERAB LES Final Result [facility] [address] [place] [phone] * (ABNORMAL) Lipid Panel, Standard (12/28/2024 2:24 PM EDT) Triglycerides 138 <150 mg/dL [facility] Comment:Desirable Triglyceri de: less than 150 mg/dLBorderline High Triglyceride 150-199 mg/dLHigh Triglyceride: 200-499 mg/dLVery High Triglyceride: greater than or equal to 5OO mg/dL Cholesterol 199 <200 mg/dL [facility] Comment:Desirable Cholestero l: less than 200 mg/dLBorderline High Cholesterol: 200-239 mg/dLHigh Cholesterol: greater than 239 mg/dL LDL Cholesterol Calculated 121(H) <100 mg/dL [facility] Comment:Desirable LDL: less than 100 mg/dLNear Optimal/Above Optimal LDL: 110- 129 mg/dLBorderline High LDL: 130-159 mg/dLHigh LDL: 160-189 mg/dLVery High LDL: greater than or equal to 190 mg/dL HDL Cholesterol 51 >40 mg/dL [facility] Comment:Desirable HDL: great er than 40 mg/dL Note: This HDL assay may give artificially low results in patients with liver disease. Blood Venous blood specimen / Unknown 12/28/2024 2:24 PM EDT 12/28/2024 2:26 PM EDT Aaron Harris MD LAB BLOOD ORDERABLES Final Result Performing Organization Address City/[facility]/ZIP Co de Phone Number [facility] [address] [place] [phone] * HIV AB/AG (02/26/2020 1:03 PM EDT) Pathologist [facility] HIV AG/AB NONREACTIVE NR FOUNDATI ON LAB [...] of detection of this assay. The [employer] Dedicated Owner Operator HIV Ag/Ab Combo assay result and supplemental assay results should be interpreted in conjunction with the patient's clinical presentation, history and other laboratory results. If the results are inconsistent with clinical evidence, additional testing is suggested to confirm the result. 02/26/2020 1:03 PM EDT Aaron Harris MD HISTORICAL/NON ORDERA BLE LABS Final Result Performing Organization Address City/[facility]/ZIP Co de Phone Number [facility] Anywhere [address] from Last 3 Months or Most Recently Relevant to Health Maintenance Insurance [address] [place] [address] [place] [facility] MEDICAID STAND ADULT [address] [place] [address] GENERIC TPL Care Teams Stamp Redemption Clerk Relationship Specialty Start Date End Date Aaron Pisano MD [address] [place] [phone] PCP - General Internal Medicine 05/10/14 Antonietta Lim Engineer AssistantPlate Glass Installer Helper 09/18/24
--- OUTSIDE RECORDS SUMMARY | 2025-07-25 20:02 | XMS_ITS | Encounter Summary ---
Author Organization [employer] Address 75 [facility] 7 [place] [address] Care Team Providers Care Digital Forensic Examiner Name Role Phone Aaron Pisano MD Primary Care Provide r Reason for Visit * Reason Onset Date Comments Med Refill 05/01/2025 Encounter Details Date Type Department Care Team ([facility] st Contact Info) Description 05/01/2025 Refill [facility] MEDICINE [address] [place] [address] Aaron Pisano MD 230 [place] [address] Social History Tobacco Use Types Packs/Day Years [...] the past 12 months, has t he [employer], gas, oil or water company threatened to [...] 2:00 PM EST Telemedicine [facility] CHC MED & PEDS 505 [place] [address] Altagracia Mancilla, GRACIELA 505 [place] [address] 08/29/2025 12:45 PM EST Office Visit [facility] ADULT DENTAL 230 [place] [address] Zhanna Hernandez 10/03/2025 10:00 AM EST Office Visit [facility] MEDICINE [address] [place] [address] Aaron Pisano MD 230 [place] [address] documented as of this encounter Goals Goal [...] as of this encounter Care Teams Digital Forensic Examiner Relationship Specialty Start Date End Date Aaron Pisano MD [address] [place] [address] PCP - General Internal Medicine 05/10/14 Antonietta Lim Excellence SpecialistPrivate Pilot 09/18/24 documented as of this encounter
--- OUTSIDE RECORDS SUMMARY | 2025-07-25 20:02 | XMS_ITS | Encounter Summary ---
Author Organization [employer] Address 75 [facility] 7 [place] [address] Care Team Providers Care Informix Developer Name Role Phone Aaron Pisano MD Primary Care Provide r Reason for Visit * Reason Onset Date Comments Med Refill 06/03/2025 Encounter Details Date Type Department Care Team ([facility] st Contact Info) Description 06/03/2025 Refill [facility] MEDICINE 230 [place] [address] Aaron Pisano MD 230 [place] [address] Chronic midline low back pain without sciatica [...] Info) Description 07/29/2025 2:00 PM EST Telemedicine [facility] CHC MED & PEDS 505 [place] [address] Altagracia Mancilla, RN 505 [place] [address] 08/29/2025 12:45 PM EST Office Visit [facility] ADULT DENTAL [address] [place] [address] Zhanna Hernandez 10/03/2025 10:00 AM EST Office Visit [facility] MEDICINE [address] [place], [place] [phone] Aaron Pisano MD 230 [place] [address] documented as of this encounter Goals Goal [...] documented as of this encounter Care Teams Informix Developer Relationship Specialty Start Date End Date Aaron Pisano MD [address] [place] [address] PCP - General Internal Medicine 05/10/14 Antonietta Lim Outer Diameter Grinder ToolHospitalist Physician 09/18/24 documented as of this encounter
--- OUTSIDE RECORDS SUMMARY | 2025-07-25 20:02 | XMS_ITS | Encounter Summary ---
Author Organization [employer] Address 75 [facility] 7 [place] [address] Care Team Providers Care Hearing Therapy Director Name Role Phone Aaron Pisano MD Primary Care Provide r Reason for Visit * Reason Onset Date Comments Med Refill 01/04/2025 Encounter Details Date Type Department Care Team (Late st Contact Info) Description 01/04/2025 Refill [facility] MEDICINE 230 [place] [address] Fam Hartman MD [address] [place] [address] Chronic midline low back pain without sciatica [...] the past 12 months, has t he [employer], gas, oil or water company threatened to [...] [facility] CHC MED & PEDS 505 [place] [address] Altagracia Mancilla, RN 505 [place] [address] 08/29/2025 12:45 PM EST Office Visit [facility] ADULT DENTAL 230 [place] [address] Zhanna Hernandez 10/03/2025 10:00 AM EST Office Visit [facility] MEDICINE 230 [place], [place] [phone] Aaron Pisano MD 230 [place] [address] documented as of this encounter Goals Goal [...] documented as of this encounter Care Teams Hearing Therapy Director Relationship Specialty Start Date End Date Aaron Pisano MD [address] [place] [address] PCP - General Internal Medicine 05/10/14 Antonietta Lim Director Of Front OfficeSupervisor Mixing 09/18/24 documented as of this encounter
--- OUTSIDE RECORDS SUMMARY | 2025-07-25 20:02 | XMS_ITS | Encounter Summary ---
Author Organization [employer] Address 75 [facility] 7 [place] [address] Care Team Providers Care Draw Bench Operator Name Role Phone Aaron Pisano MD Primary Care Provide r Reason for Visit * Reason Onset Date Comments Med Refill 06/03/2025 Encounter Details Date Type Department Care Team ([facility] Contact Info) Description 06/03/2025 Telephone [facility] MEDICINE 230 [place] [address] Aaron Pisano MD 230 [place] [address] Med Refill Social History Tobacco Use Types [...] past 12 months, has t he [employer], gas, oil or water company threatened to [...] immediate release tablet To be sent to: [facility] [place], [place] - [address] [facility] documented in this encounter Plan of Treatment Upcoming Encounters Date Type Department Care Team ([facility] st Contact Info) Description 07/29/2025 2:00 PM EST Telemedicine [facility] CHC MED & PEDS 505 [place] [address] Altagracia Mancilla, GRACIELA 505 [place] [address] 08/29/2025 12:45 PM EST Office Visit [facility] ADULT DENTAL 230 [place] [address] Zhanna Hernandez 10/03/2025 10:00 AM EST Office Visit [facility] MEDICINE [address] [place] [address] Aaron Pisano MD 230 [place] [address] documented as of this encounter Goals Goal [...] documented as of this encounter Care Teams Draw Bench Operator Relationship Specialty Start Date End Date Aaron Pisano MD 230 [place] [address] PCP - General Internal Medicine 05/10/14 Antonietta Lim Carrier OperatorSewer Pipe Press Operator 09/18/24 documented as of this encounter
--- OUTSIDE RECORDS SUMMARY | 2025-07-25 20:02 | XMS_ITS | Encounter Summary ---
Author Organization [employer] Address 75 [facility] 7 [place] [address] Care Team Providers Care Miner Operator Name Role Phone Aaron Pisano MD Primary Care Provide r Reason for Visit * Reason Onset Date Comments PT-1 05/15/2025 Encounter Details Date Type Department Care Team ([facility] Contact Info) Description 05/15/2025 Telephone [facility] MEDICINE [address] [place] [address] Aaron Pisano MD 230 [place] [address] PT-1 Social History Tobacco Use Types Packs/Day [...] Y/N: Yes Provider name or facility name: [facility] Infectious Disease Facility Address: [address] [place] [address] Escort needed: Y/N: No Do you have a wheelchair: Y/N: No If yes- Manual or electric: N/A Visits: Twice a month documented in this encounter Plan of Treatment Upcoming Encounters Date Type Department Care Team (Late st Contact Info) Description 07/29/2025 2:00 PM EST Telemedicine [facility] CHC MED & PEDS 505 [place] [address] Altagracia Mancilla, GRACIELA 505 [place] [address] 08/29/2025 12:45 PM EST Office Visit [facility] ADULT DENTAL 230 [place], [place] [phone] Hernandez Zhanna 10/03/2025 10:00 AM EST Office Visit [facility] MEDICINE 230 [place], [place] [phone] Aaron Pisano MD 230 [place], [place] [phone] documented as of this encounter Goals Goal [...] documented as of this encounter Care Teams Miner Operator Relationship Specialty Start Date End Date Aaron Pisano MD 230 [place], [place] [phone] PCP - General Internal Medicine 05/10/14 Antonietta Lim French Folding Machine OperatorBasket Sorter 09/18/24 documented as of this encounter
--- OUTSIDE RECORDS SUMMARY | 2025-07-25 20:02 | XMS_ITS | Encounter Summary ---
Author Organization [employer] Address 75 [facility] 7 [place] [address] Care Team Providers Care Printed Circuit Board Preassembler Name Role Phone Aaron Pisano MD Primary Care Provide r Reason for Visit * Reason Onset Date Comments Pt-1 05/24/2025 Encounter Details Date Type Department Care Team ([facility] Contact Info) Description 05/24/2025 Telephone [facility] MEDICINE 230 [place] [address] Aaron Pisano MD 230 [place] [address] Pt-1 Social History Tobacco Use Types Packs/Day [...] Y/N: Yes Provider name or facility name: [facility] Infectious Disease Facility Address: [address] [place] [address] Escort needed: Y/N: No Do you have a wheelchair: Y/N: No If yes- Manual or electric: N/A Visits: Once a month documented in this encounter Plan of Treatment Upcoming Encounters Date Type Department Care Team (Late st Contact Info) Description 07/29/2025 2:00 PM EST Telemedicine [facility] CHC MED & PEDS 505 [place] [address] Altagracia Mancilla, GRACIELA 505 [place] [address] 08/29/2025 12:45 PM EST Office Visit [facility] ADULT DENTAL 230 [place], [place] [phone] Zhanna Hernandez 10/03/2025 10:00 AM EST Office Visit [facility] MEDICINE [address] [facility] [place], [place] [phone] Aaron Pisano MD [address] [place], [place] [phone] documented as of this encounter Goals Goal [...] documented as of this encounter Care Teams Printed Circuit Board Preassembler Relationship Specialty Start Date End Date Aaron Pisano MD 230 [place], [place] [phone] PCP - General Internal Medicine 05/10/14 Antonietta Lim Private TutorResearch Specialist 09/18/24 documented as of this encounter
--- OUTSIDE RECORDS SUMMARY | 2025-07-25 20:02 | XMS_ITS | Encounter Summary ---
Author Organization [employer] Address 75 [facility] 7 [place] [address] Care Team Providers Care Refrigerated Company Driver Name Role Phone Aaron Pisano MD Primary Care Provide r Reason for Visit * Reason Onset Date Comments Med Refill 01/07/2025 Encounter Details Date Type Department Care Team (Late st Contact Info) Description 01/07/2025 Refill [facility] MEDICINE 230 [place] [address] Fam Hartman MD [address] [place] [address] Chronic midline low back pain without sciatica [...] the past 12 months, has t he [employer], gas, oil or water company threatened to [...] EST Telemedicine [facility] CHC MED & PEDS 505 [place] [address] Altagracia Mancilla, RN 505 [place] [address] 08/29/2025 12:45 PM EST Office Visit [facility] ADULT DENTAL 230 [place] [address] Zhanna Hernandez 10/03/2025 10:00 AM EST Office Visit [facility] MEDICINE 230 [place], [place] [phone] Aaron Pisano MD 230 [place] [address] documented as of this encounter Goals Goal [...] documented as of this encounter Care Teams Refrigerated Company Driver Relationship Specialty Start Date End Date Aaron Pisano MD [address] [place] [address] PCP - General Internal Medicine 05/10/14 Antonietta Lim Moth ProoferWoods Manager 09/18/24 documented as of this encounter
--- OUTSIDE RECORDS SUMMARY | 2025-07-25 20:02 | XMS_ITS | Encounter Summary ---
Author Organization [employer] Address 75 [facility] 7 [place] [address] Care Team Providers Care Auditing Control Clerk Name Role Phone Aaron Pisano MD Primary Care Provide r Reason for Visit * Reason Onset Date Comments PT-1 06/11/2025 Encounter Details Date Type Department Care Team ([facility] Contact Info) Description 06/11/2025 Telephone [facility] MEDICINE 230 [place] [address] Aaron Pisano MD 230 [place] [address] PT-1 Social History Tobacco Use Types Packs/Day [...] Y/N: Yes Provider name or facility name: [facility] Facility Address: [address] [facility] [place] Escort needed: Y/N: No Do you have a wheelchair: Y/N: No If yes- Manual or electric: N/A Visits: Once a month - Patient calling requesting PT1 Home Address verified: Y/N: Yes Provider name or facility name: [facility] Pulmonology Facility Address: [address] [facility] [place] Escort needed: Y/N: No Do you have a wheelchair: Y/N: No If yes- Manual or electric: N/A Visits: 3 times a month - Patient calling requesting PT1 Home Address verified: Y/N: Yes Provider name or facility name: [facility] Molder Pipe Covering Facility Address: [address] [facility] [place] Escort needed: Y/N: No Do you have a wheelchair: Y/N: No If yes- Manual or electric: N/A Visits: Once a month - Patient calling requesting PT1 Home Address verified: Y/N: Yes Provider name or facility name: [facility] Facility Address: [address] [facility] [place] Escort needed: Y/N: No Do you have a wheelchair: Y/N: No If yes- Manual or electric: N/A Visits: 3 times a month - Patient calling requesting PT1 Home Address verified: Y/N: Yes Provider name or facility name: [facility] Rheumatology Facility Address: [address] [place] [address] [facility] Escort needed: Y/N: No Do you have a wheelchair: Y/N: No If yes- Manual or electric: N/A Visits: Once a month documented in this encounter Plan of Treatment Upcoming Encounters Date Type Department Care Team ([facility] st Contact Info) Description 07/29/2025 2:00 PM EST Telemedicine [facility] CHC MED & PEDS 505 [place] [address] Altagracia Mancilla RN 505 [place] [address] 08/29/2025 12:45 PM EST Office Visit [facility] ADULT DENTAL 230 [place] [address] Zhanna Hernandez 10/03/2025 10:00 AM EST Office Visit [facility] MEDICINE 230 [place] [address] Aaron Pisano MD 230 [place] [address] documented as of this encounter Goals Goal [...] documented as of this encounter Care Teams Auditing Control Clerk Relationship Specialty Start Date End Date Aaron Pisano MD [address] [place] [address] PCP - General Internal Medicine 05/10/14 Antonietta Lim Senior Medical TranscriptionistMaster Steam Yacht 09/18/24 documented as of this encounter
--- OUTSIDE RECORDS SUMMARY | 2025-07-25 20:02 | XMS_ITS | Encounter Summary ---
Author Organization [employer] Address 75 [facility] 7t [place] [address] Care Team Providers Care Knit Goods Cutter Hand Name Role Phone Aaron Pisano MD Primary Care Provide r Encounter Details Date Type Department Care Team ([facility] Contact Info) Description 04/05/2025 Telephone [facility] MEDICINE 230 [place] [address] Aaron Pisano MD 230 [place], [place] [phone] Social History Tobacco Use Types Packs/Day Years [...] [facility] 505 [place] [address] Altagracia Mancilla, GRACIELA 505 [place] [address] 08/29/2025 12:45 PM EST Office Visit [facility] ADULT DENTAL 230 [place], [place] [phone] Zhanna Hernandez 10/03/2025 10:00 AM EST Office Visit [facility] MEDICINE [address] [place] [address] Aaron Pisano MD 230 [place] [address] documented as of this encounter Goals Goal [...] documented as of this encounter Care Teams Knit Goods Cutter Hand Relationship Specialty Start Date End Date Aaron Pisano MD [address] [place] [address] PCP - General Internal Medicine 05/10/14 Antonietta Lim Aircraft Pneudraulics RepairerLead Cargoman 09/18/24 documented as of this encounter
--- OUTSIDE RECORDS SUMMARY | 2025-07-25 20:02 | XMS_ITS | Encounter Summary ---
Author Organization [employer] Address 75 [facility] 7 [place] [address] Care Team Providers Care Insurance Claims Specialist Name Role Phone Aaron Pisano MD Primary Care Provide r Reason for Visit * Reason Onset Date Comments Med Refill 05/24/2025 Encounter Details Date Type Department Care Team ([facility] st Contact Info) Description 05/24/2025 Refill [facility] ADULT DENTAL 230 [place] [address] Miki Sarkar, DDS 230 [place] [address] Social History Tobacco Use Types Packs/Day Years [...] Info) Description 07/29/2025 2:00 PM EST Telemedicine [facility] CHC MED & PEDS 505 [place] [address] Altagracia Mancilla RN 505 [place] [address] 08/29/2025 12:45 PM EST Office Visit [facility] ADULT DENTAL 230 [place] [address] Zhanna Hernandez 10/03/2025 10:00 AM EST Office Visit [facility] MEDICINE 230 [place], [place] [phone] Aaron Pisano MD 230 [place] [address] documented as of this encounter Goals Goal [...] as of this encounter Care Teams Insurance Claims Specialist Relationship Specialty Start Date End Date Aaron Pisano MD 230 [place] [address] PCP - General Internal Medicine 05/10/14 Antonietta Lim Equipment Maintenance SuperintendentCareer Development Engineer 09/18/24 documented as of this encounter
--- OUTSIDE RECORDS SUMMARY | 2025-07-25 20:02 | XMS_ITS | Encounter Summary ---
Author Organization [employer] Address [address] [place] [address] 7 [place] [address] Care Team Providers Care Boat Oar Maker Name Role Phone Aaron Pisano MD Primary Care Provide r Reason for Visit * Reason Onset Date Comments Med Refill 08/12/2024 Encounter Details Date Type Department Care Team ([facility] st Contact Info) Description 08/12/2024 Refill [facility] MEDICINE 230 [place] [address] Aaron Pisano MD 230 [place] [address] Smoker Social History Tobacco Use Types Packs/Day [...] Info) Description 07/29/2025 2:00 PM EST Telemedicine [facility] CHC MED & PEDS 505 [place] [address] Altagracia Mancilla, RN 505 [place] [address] 08/29/2025 12:45 PM EST Office Visit [facility] ADULT DENTAL 230 [place] [address] Zhanna Hernandez 10/03/2025 10:00 AM EST Office Visit [facility] MEDICINE 230 [place] [address] Aaron Pisano MD 230 [place] [address] documented as of this encounter Goals Goal [...] documented as of this encounter Care Teams Boat Oar Maker Relationship Specialty Start Date End Date Aaron Pisano MD [address] [place] [address] PCP - General Internal Medicine 05/10/14 Antonietta Lim CrabberSenior Sales Operations Analyst 09/18/24 documented as of this encounter
--- OUTSIDE RECORDS SUMMARY | 2025-07-25 20:02 | XMS_ITS | Encounter Summary ---
Author Organization [employer] Address 75 [facility] 7 [place] [address] Care Team Providers Care Cupola Charger Name Role Phone Aaron Pisano MD Primary Care Provide r Reason for Visit * Reason Onset Date Comments pt1 01/07/2025 Encounter Details Date Type Department Care Team ([facility] Contact Info) Description 01/07/2025 Telephone [facility] MEDICINE 230 [place] [address] Aaron Pisano MD 230 [place] [address] pt1 Social History Tobacco Use Types Packs/Day [...] this requirement. Please update information for address [address] [place] [address] [address] [facility] [address] documented in this encounter Plan of Treatment Upcoming Encounters Date Type Department Care Team (Late st Contact Info) Description 07/29/2025 2:00 PM EST Telemedicine [facility] CHC MED & PEDS 505 [place] [address] Altagracia Mancilla, RN 505 [place] [address] 08/29/2025 12:45 PM EST Office Visit [facility] ADULT DENTAL 230 [facility] [place] [address] Zhanna Hernandez 10/03/2025 10:00 AM EST Office Visit [facility] MEDICINE 230 [place] [address] Aaron Pisano MD 230 [place] [address] documented as of this encounter Goals Goal [...] documented as of this encounter Care Teams Cupola Charger Relationship Specialty Start Date End Date Aaron Pisano MD 230 [place] [address] PCP - General Internal Medicine 05/10/14 Antonietta Lim PanmanChanneler Runner 09/18/24 documented as of this encounter
--- OUTSIDE RECORDS SUMMARY | 2025-07-25 20:02 | XMS_ITS | Encounter Summary ---
Author Organization [employer] Address [address] [place] [address] 7 [place] [address] Care Team Providers Care Central Supply Technician Supervisor Name Role Phone Aaron Pisano MD Primary Care Provide r Reason for Visit * Reason Comments Med Refill Encounter Details Date Type Department Care Team ([facility] st Contact Info) Description 07/01/2025 Refill [facility] MEDICINE 230 [place] [address] Aaron Pisnao MD 230 [place] [address] Chronic bilateral low back pain without sciatica; [...] Info) Description 07/29/2025 2:00 PM EST Telemedicine [facility] CHC MED & PEDS 505 [place] [address] Altagracia Mancilla, RN 505 [place] [address] 08/29/2025 12:45 PM EST Office Visit [facility] ADULT DENTAL 230 [place] [address] Zhanna Hernandez 10/03/2025 10:00 AM EST Office Visit [facility] MEDICINE 230 [place] [address] Aaron Pisano MD 230 [place] [address] documented as of this encounter Goals Goal [...] documented as of this encounter Care Teams Central Supply Technician Supervisor Relationship Specialty Start Date End Date Aaron Pisano MD [address] [place] [address] PCP - General Internal Medicine 05/10/14 Antonietta Lim It Operations AnalystUnemployment Examiner 09/18/24 documented as of this encounter
--- OUTSIDE RECORDS SUMMARY | 2025-07-25 20:02 | XMS_ITS | Encounter Summary ---
Author Organization [employer] Address 75 [facility] 7t [place] [address] Care Team Providers Care Academic Tutor Name Role Phone Aaron Pisano MD Primary Care Provide r Encounter Details Date Type Department Care Team (Latest Contact Info) Description 07/23/2025 Travel Social History Tobacco Use Types Packs/Day [...] [facility] CHC MED & PEDS 505 [place] [address] Altagracia Mancilla, GRACIELA 505 [place] [address] 08/29/2025 12:45 PM EST Office Visit [facility] ADULT DENTAL 230 [place] [address] Zhanna Hernandez 10/03/2025 10:00 AM EST Office Visit [facility] MEDICINE 230 [place] [address] Aaron Pisano MD 230 [place] [address] documented as of this encounter Goals Goal [...] documented as of this encounter Care Teams Academic Tutor Relationship Specialty Start Date End Date Aaron Pisano MD 230 [place] [address] PCP - General Internal Medicine 05/10/14 Antonietta Lim Artist ModelLaborer Chicken Farm 09/18/24 documented as of this encounter
--- OUTSIDE RECORDS SUMMARY | 2025-07-25 20:02 | XMS_ITS | Encounter Summary ---
Author Organization [email or web address] Address [address] [place] [address] 7 [place] [address] Care Team Providers Care Boat Cleaning Supervisor Name Role Phone Aaron Pisano MD Primary Care Provide r Reason for Visit * Reason Onset Date Comments Med Refill 08/02/2024 Encounter Details Date Type Department Care Team ([facility] Contact Info) Description 08/02/2024 Telephone [facility] [address] [place] [address] Aaron Pisano MD [address] [place] [address] Med Refill Social History Tobacco Use Types [...] the past 12 months, has t he [employer], gas, oil or water company threatened to [...] Description 07/29/2025 2:00 PM EST Telemedicine [facility] [address] [place] [address] Altagracia Mancilla RN [address] [place] [address] 08/29/2025 12:45 PM EST Office Visit [facility] [address] [place] [address] Zhanna Hernandez 10/03/2025 10:00 AM EST Office Visit [facility] [address] [place] [address] Aaron Pisano MD [address] [place] [address] documented as of this encounter Goals Goal [...] as of this encounter Care Teams Boat Cleaning Supervisor Relationship Specialty Start Date End Date Aaron Pisano MD [address] [place] [address] PCP - General Internal Medicine 05/10/14 Antonietta Lim Electric Meter Repairer [facility] Shift Lead 09/18/24 documented as of this encounter
== END 2025-07-25 19:37 | disposition home or self-care (01) ==
LOC: HO.MRI 19:36
PROVIDERS: PCP Internal Medicine; Visit Provider Internal Medicine
DX: G89.29 Other chronic pain (principal); M54.50 Low back pain, unspecified
CPT/HCPCS: 72148

== ENCOUNTER 2025-08-06 15:04 | Outpatient (AMB) | payer MEDICAID, SELFPAY ==
--- NOTE | 2025-08-06 15:09 | A.OFFVIS_ITS ---
Vital Signs 08/06/25 15:14 Height 4 ft 11 in Weight 220 lb BMI 44.4 BP 116/56 L Blood Pressure Location Rt brachial Position Sitting Pulse 78 Pulse Source Pulse Oximeter Pulse Oximetry (%) 97 Oxygen Delivery Method Room Air Intake Visit Reasons: GERD + Weight mgmt. Hx of HP. Intake Note: Est pt for mgmt of GERD + chronic abd pain. Pt still has outstanding labs ordered by Dr. Oh. CC; C/O chronic sx, no changes to presentation since last visit. Pt reports that she is going to be starting GLP 1 therapy soon and would like to discuss this. Pt also expressed concern pertaining to not being able to get her Xifaxan. Traffic Court Magistrate Required: No Accompanied by: Self / Same As Patient Allergies tramadol Allergy (Intermediate, Verified 07/02/25 11:51) swelling buspirone (From BuSpar) Allergy (Mild, Verified 07/02/25 11:51) rash lamotrigine (From Lamictal) Allergy (Mild, Verified 07/02/25 11:51) Unknown naproxen Allergy (Unknown, Verified 07/02/25 11:51) anaphylaxis NSAIDS (Non-Steroidal Anti-Inflamma (NSAIDS (NON-STEROIDAL ANTI-INFLAMMA) Allergy (Unknown, Verified 07/02/25 11:51) ANAPHYLAXIS Penicillins (PENICILLINS) Allergy (Unknown, Verified 07/02/25 11:51) ANAPHYLAXIS methotrexate Allergy (Verified 07/02/25 11:51) Rash HPI HPI GERD + Weight mgmt. Hx of HP.: Details: LAST VISIT Vomiting GERD (gastroesophageal reflux disease) Diarrhea Abdominal pain Plan Patient will continue current PPI therapy. Continue eating small meals. Patient was encouraged to try to purchase [id number] fiber to help with diarrhea. May take 1-2 capsules daily. Discussed with patient low FODMAP diet. List of food recommended as well as list of food to avoid given to patient. Over a month ago doctor has son send a script for Xifaxan, however unable to get it as ins urance was not covering. I will send her a script for rifaximin for 2 weeks. Patient will let us know if she will not be able to purchase it. Patient will follow-up in the office in 5 weeks. Patient was encouraged to call us if she will have worsening symptoms. Patient is agreeable to current plan of care and verbalizes understanding of instructions. She was given the opportunity to ask questions and all questions answered as. ? Thank you for allowing me to participate in her care New rifaximin 550 mg PO BID 28 tabs 0RF 14 days TODAY'S VISIT Patient is here today for follow-up. Patient was unable to get rifaximin covered by insurance. She continues to have severe diarrhea no matter what she eat. 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 We will try Welchol and see if that will help. Patient denies melena, hematochezia. She continues to gain weight and would benefit from GLP 1 therapy. She will talk to her PCP about it during next visit. Patient denies dyspepsia, dysphagia or odynophagia. Patient is doing well when she is taking Nexium. Patient stopped taking tamoxifen as she had adverse effects, patient was started on Ajovy and has not picked up her script yet. Patient denies nausea or vomiting PFSH Medical History GERD (gastroesophageal reflux disease) Asthma exacerbation Sinusitis Somnolence, daytime Snoring Morbid obesity Cough Asthma Allergic rhinitis Obesity (BMI 30-39.9) PCOS (polycystic ovarian syndrome) Vitamin D deficiency Surgical History History of bladder surgery Hx of dilation and curettage Hx of section Hx laparoscopic cholecystectomy Hx of tooth extraction Hx of hysterectomy Family History Father Heart disease Mother Diabetes mellitus Raynaud disease Paternal Grandfather Diabetes mellitus Paternal Uncle Diabetes mellitus Social History Household Members: Children Housing: House Do you presently have visiting nurse or other home services: No (appointment for TRANSPORT MEDIC, in progress) Alcohol intake: current Alcohol intake frequency: holidays/special occasions only Alcohol type: wine Patient Tobacco Use Status: Former Tobacco user Tobacco use type: Cigarette Cigarettes Per Day: 0 Second Hand Smoke Exposure: No Substance Use Type: Marijuana Advance Directives Date on File: 01/12/22 service: No Current occupational status: unemployed Review of Systems Const Denies weight gain, Denies weight loss and Reports other (Episode of dizziness few days ago) ENT Reports no additional complaints, Denies dysphagia and Denies odynophagia Card Reports no additional complaints Resp Reports no additional complaints GI Reports abdominal pain, Denies belching, Denies melena, Reports bloating, Denies change in bowel habits, Denies dysphagia, Denies excessive flatus, Denies dyspepsia, Reports heartburn (Occasional), Denies diarrhea, Reports loose stools, Denies nausea, Denies odynophagia and Denies vomiting Reports no additional complaints Musc Reports no additional complaints Neuro Reports no additional complaints Psych Reports no additional complaints Endo Reports no additional complaints Physical Exam Vital Signs: Last Vital Signs Pulse 78 08/06/25 15:14 BP 116/56 L 08/06/25 15:14 Pulse Ox 97 08/06/25 15:14 Oxygen Delivery Method Room Air 08/06/25 15:14 BMI result Body Mass Index 44.4 Const General: healthy appearing and no acute distress Nutritional Appearance: obese Orientation/consciousness: patient oriented x3 Resp Effort & Inspection: normal respiratory effort, able to speak in complete sentences, no tracheal deviation and symmetric chest movement Auscultation: clear to auscultation bilaterally Cardio Rate: regular rate GI Inspection: Yes normal to inspection, No distended and Yes obesity Palpation (GI): Soft to palpation, not firm, nontender and No hepatosplenomegaly present Auscultation: normal bowel sounds General: Yes no CVA tenderness Back/Spine/Pelvis Back: no CVA tenderness Skin General skin exam: elasticity normal, turgor normal and dry skin Neuro General: patient oriented x3 Psych Appearance: grossly normal Mental Status: mental status grossly normal Assessment & Plan Assessment & Plan (1) GERD (gastroesophageal reflux disease): Code(s): K21.9 - Gastro-esophageal reflux disease without esophagitis Category: Medical Qualifiers: Esophagitis presence: esophagitis presence not specified Qualified Code(s): K21.9 - Gastro-esophageal reflux disease without esophagitis (2) Diarrhea: Code(s): R19.7 - Diarrhea, unspecified Category: Medical Qualifiers: Diarrhea type: functional diarrhea Qualified Code(s): K59.1 - Functional diarrhea (3) Abdominal pain: Code(s): R10.9 - Unspecified abdominal pain Qualifiers: Abdominal location: generalized Qualified Code(s): R10.84 - Generalized abdominal pain (4) Post-cholecystectomy syndrome: Code(s): K91.5 - Postcholecystectomy syndrome Plan Will try patient on Welchol to see if we can control her bowels better. Patient however does not feel like she empties her bowels completely so she can take senna at bedtime. Patient will increase fiber in her diet as well. Avoid dietary triggers. We have discussed low FODMAP diet. Patient has a list of food recommended from last visit. Patient will return to the office in 2 months. She will call us if she will have any GI concerning symptoms. She is agreeable to this plan and verbalizes understanding of instructions. She was given the opportunity to ask questions and all questions answered. New Thank you for allowing me to participate in her care Medications: New sennosides (Natural Senna Laxative) 17.2 mg (2 x 8.6 mg) PO BEDTIME 60 tabs 3RF constipation K59.00 - Constipation, unspecified colesevelam (WelChol) 1,250 mg (2 x 625 mg) PO BID 120 tabs 2RF K52.9 - Noninfective gastroenteritis and colitis, unspecified, K91.5 - Postcholecystectomy syndrome Discontinued rifaximin Discontinued Reason: Doctor's Order 550 mg PO BID 14 days 28 tabs 0RF Coding Level of Care Code Est Pt Level 4 (59585) Add On Problem Visit Only Diagnoses Gastroesophageal reflux disease, unspecified whether esophagitis present K21.9 Esophagitis presence: esophagitis presence not specified Functional diarrhea K59.1 Diarrhea type: functional diarrhea Generalized abdominal pain R10.84 Abdominal location: generalized Post-cholecystectomy syndrome K91.5 Time Spent (min) 40 Comment 25 minutes spent with patient and additional 15 minutes spent reviewing her records
[2025-08-06 15:14] VITALS: BP 116/56; PULSE 78; O2SAT 97; BMI 44.4
--- OUTSIDE RECORDS SUMMARY | 2025-08-06 18:34 | XMS_ITS | Encounter Summary ---
Author Organization [employer] Address [address] [place] [address] 7 [place] [address] Care Team Providers Care Nba Player Name Role Phone Aaron Pisano MD Primary Care Provide r Reason for Visit * Reason Onset Date Comments Nurse Triage 02/21/2023 Encounter Details Date Type Department Care Team ([facility] st Contact Info) Description 02/21/2023 Telephone [facility] [address] [place] [address] Aaron Pisano MD [address] [place] [address] Nurse Triage Social History Tobacco Use Types [...] 4:45 PM EDT Please assist with obtaining [facility] ED discharge notes for 02/10/23. This mortgage or loan underwriter does not have My [employer] access. Pt sent to ER after visit with [facility]. * Telephone Encounter - Leora Campbell RN - 02/21/2023 4:39 PM EDT Call to Zee Villanueva , reports having vomiting since seen at [facility] ER. Per pt was given abx for [...] Center 02/25/2023 9:30 AM DUY Taveras MEDICINE [facility] 03/21/2023 1:00 PM Giovanna Payne PharmD MEDICINE [facility] 04/27/2023 3:00 PM Aniya Anderson RN MEDICINE [facility] Multiple (2) protocols were used [...] accepted this outcome Please contact pt at [phone] Pt was at [facility] hospital on 02/10/2023 for same symptoms. documented in this encounter Plan of Treatment Upcoming Encounters Date Type Department Care Team (Late st Contact Info) Description 08/29/2025 12:45 PM EST Office Visit [facility] ADULT DENTAL [address] [place] [address] Zhanna Hernandez 10/03/2025 10:00 AM EST Office Visit [facility] [address] [place] [phone] Aaron Pisano MD [address] [place] [address] 10/25/2025 11:00 AM EDT Clinical Support [facility] [address] [place] [address] Altagracia Mancilla RN [address] [place] [address] documented as of this encounter Visit Diagnoses Not on filedocumented in this encounter Care Teams Nba Player Relationship Specialty Start Date End Date Aaron Pisano MD [address] [place] [phone] PCP - General Internal Medicine 05/10/14 Antonietta Lim Professor Computer ScienceAthletic Field Custodian 09/18/24 documented as of this encounter
--- OUTSIDE RECORDS SUMMARY | 2025-08-06 18:34 | XMS_ITS | Clinical Summary ---
Author Organization [facility] Address [facility] [place] [address] Care Team Providers Care Corrosion Prevention Metal Sprayer Name Role Phone None Primary Care Provider [...] Influenza standard series) 04/08/2025 Insurance MEDICAID MANAGED [place] OOS Care Teams Corrosion Prevention Metal Sprayer Relationship Specialty Start Date End Date None None PCP - General 02/10/20
--- OUTSIDE RECORDS SUMMARY | 2025-08-06 18:34 | XMS_ITS | Encounter Summary ---
Author Organization [employer] Address [address] [place] [address] 7 [place] [address] Care Team Providers Care Utilization Coordinator Name Role Phone Aaron Pisano MD Primary Care Provide r Reason for Visit * Reason Onset Date Comments Med Refill 11/07/2024 Encounter Details Date Type Department Care Team (Late st Contact Info) Description 11/07/2024 Refill [facility] [address] [place] [address] Aaron Pisano MD [address] [place] [address] Chronic midline low back pain without sciatica; [...] Description 08/29/2025 12:45 PM EST Office Visit [facility] ADULT DENTAL [address] [place] [address] Zhanna Hernandez 10/03/2025 10:00 AM EST Office Visit [facility] [address] [place] [address] Aaron Pisano MD [address] [place] [address] 10/25/2025 11:00 AM EDT Clinical Support [facility] [address] [place] [address] Altagracia Mancilla RN [address] [place] [address] documented as of this encounter Goals Goal [...] documented as of this encounter Care Teams Utilization Coordinator Relationship Specialty Start Date End Date Aaron Pisano MD [address] [place] [address] PCP - General Internal Medicine 05/10/14 Antonietta Lim Director Of Program ManagementWindow Sash Installer 09/18/24 documented as of this encounter
--- OUTSIDE RECORDS SUMMARY | 2025-08-06 18:34 | XMS_ITS | Encounter Summary ---
Author Organization [employer] Address [address] [facility] 7 [place] [address] Care Team Providers Care Mattress Finisher Name Role Phone Aaron Pisano MD Primary Care Provide r Reason for Visit * Reason Onset Date Comments Reschedule 03/01/2024 Encounter Details Date Type Department Care Team ([facility] Contact Info) Description 03/01/2024 Telephone [facility] [address] [place] [address] Aaron Pisano MD [address] [place] [address] Reschedule Social History Tobacco Use Types Packs/Day [...] a call back in order to r/s AUTOMATIC DOOR MECHANIC appt documented in this encounter Plan of Treatment Upcoming Encounters Date Type Department Care Team (Late st Contact Info) Description 08/29/2025 12:45 PM EST Office Visit [facility] ADULT DENTAL [address] [place] [phone] Zhanna Hernandez 10/03/2025 10:00 AM EST Office Visit [facility] MEDICINE [address] [place] [address] Aaron Pisano MD [address] [place] [address] 10/25/2025 11:00 AM EDT Clinical Support [facility]INE [address] [place] [address] Altagracia Mancilla RN [address] [place] [address] documented as of this encounter Goals Goal [...] documented as of this encounter Care Teams Mattress Finisher Relationship Specialty Start Date End Date Aaron Pisano MD [address] [place] [address] PCP - General Internal Medicine 05/10/14 Antonietta Lim Water Filterer HelperSuperintendent Pipelines 09/18/24 documented as of this encounter
--- OUTSIDE RECORDS SUMMARY | 2025-08-06 18:34 | XMS_ITS | Encounter Summary ---
Author Organization [employer] Address [address] [place] [address] 7 [place] [address] Care Team Providers Care Contact Lens Inspector Name Role Phone Aaron Pisano MD Primary Care Provide r Reason for Visit * Reason Onset Date Comments Med Refill 11/16/2022 Encounter Details Date Type Department Care Team ([facility] st Contact Info) Description 11/16/2022 Telephone [facility] [address] [place] [address] Aaron Pisano MD [address] [place] [address] Med Refill Social History Tobacco Use Types [...] med refill status Please contact pt at [phone] * Telephone Encounter - Natasha Jain - 11/30/2022 1:14 PM EDT Tc from pt requesting medication status. Please contact pt at [phone] * Telephone Encounter - Jenny Smith - 11/16/2022 4:36 PM EDT Tc from pt requesting med refill for medication oxyCODONE (Roxicodone) 5 MG immediate release tablet. documented in this encounter Plan of Treatment Upcoming Encounters Date Type Department Care Team (Late st Contact Info) Description 08/29/2025 12:45 PM EST Office Visit [facility] ADULT DENTAL [address] [place] [address] Zhanna Hernandez 10/03/2025 10:00 AM EST Office Visit [facility] [address] [place] [address] Aaron Pisano MD [address] [place] [address] 10/25/2025 11:00 AM EDT Clinical Support [facility] [address] [place] [address] Altagracia Mancilla, GRACIELA [address] [place] [address] documented as of this encounter Visit Diagnoses Not on filedocumented in this encounter Care Teams Contact Lens Inspector Relationship Specialty Start Date End Date Aaron Pisano MD [address] [place] [address] PCP - General Internal Medicine 05/10/14 Antonietta Lim DesignerCustomer Counter Representative 09/18/24 documented as of this encounter
--- OUTSIDE RECORDS SUMMARY | 2025-08-06 18:34 | XMS_ITS | Encounter Summary ---
Author Organization [employer] Address [address] [place] [address] 7 [place] [address] Care Team Providers Care Trim Machine Adjuster Name Role Phone Aaron Pisano MD Primary Care Provide r Reason for Visit * Reason Comments Med Refill Encounter Details Date Type Department Care Team (Late Contact Info) Description 02/18/2023 Refill [facility] [address] [place] [address] Aaron Pisano MD [address] [place] [address] Social History Tobacco Use Types Packs/Day Years [...] Upcoming Encounters Date Type Department Care Team ([facility] Contact Info) Description 08/29/2025 12:45 PM EST Office Visit [facility] [address] [place], [place] [phone] Zhanna Hernandez 10/03/2025 10:00 AM EST Office Visit [facility] [address] [place] [phone] Aaron Pisano MD [address] [place], [place] [phone] 10/25/2025 11:00 AM EDT Clinical Support [facility] [address] [place] [phone] Altagracia Mancilla, GRACIELA [address] [place], [place] [phone] documented as of this encounter Visit Diagnoses Not on filedocumented in this encounter Care Teams Trim Machine Adjuster Relationship Specialty Start Date End Date Aaron Pisano MD [address] [place] [address] [phone] PCP - General Internal Medicine 05/10/14 Antonietta Lim Upper And Bottom Lacer HandDirector Of Digital Technology 09/18/24 documented as of this encounter
--- OUTSIDE RECORDS SUMMARY | 2025-08-06 18:34 | XMS_ITS | Encounter Summary ---
Author Organization [employer] Address [address] [facility] [address]t [place] [address] Care Team Providers Care Tank Car Mechanic Name Role Phone Aaron Pisano MD Primary Care Provide r Reason for Visit * Reason Comments Med Refill Encounter Details Date Type Department Care Team ([facility] st Contact Info) Description 10/08/2024 Refill [facility] [address] [place] [address] Aaron Pisano MD [address] [place] [address] Diarrhea in adult patient; Chronic midline low [...] Description 08/29/2025 12:45 PM EST Office Visit [facility] ADULT DENTAL [address] [place] [address] Zhanna Hernandez 10/03/2025 10:00 AM EST Office Visit [facility] MED[facility]INE [address] [place] [address] Aaron Pisano MD [address] [place] [address] 10/25/2025 11:00 AM EDT Clinical Support [facility] [address] [place] [address] Altagracia Mancilla RN [address] [place] [address] documented as of this encounter Goals Goal Patient Goal Type Associated Problems Recent Progress Patient-Stated? Author Blood Pressure < 140/90 Blood Pressure 130/83( 025 3:21 PM EDT) Giovanna Edwards PharmD documented as of this encounter Visit Diagnoses Diagnosis Diarrhea in adult patient Chronic midline low back pain without sciatica documented in this encounter Additional Health Concerns Assessment Noted Time PHQ-9 Depression Total Score: 2 06/05/20 24 8:38 AM EDT documented as of this encounter Care Teams Tank Car Mechanic Relationship Specialty Start Date End Date Aaron Pisano MD [address] [place] [address] PCP - General Internal Medicine 05/10/14 Antonietta Lim Corporation LawyerBricklayer 09/18/24 documented as of this encounter
--- OUTSIDE RECORDS SUMMARY | 2025-08-06 18:34 | XMS_ITS | Encounter Summary ---
Author Organization [employer] Address 75 [facility] 7 [place] [address] Care Team Providers Care Insurance Verification Representative Name Role Phone Aaron Pisano MD Primary Care Provide r Reason for Visit * Reason Onset Date Comments Med Refill 04/02/2025 Encounter Details Date Type Department Care Team ([facility] st Contact Info) Description 04/02/2025 Refill [facility] MEDICINE 230 [place] [address] Aaron Pisano MD 230 [place] [address] Social History Tobacco Use Types Packs/Day Years [...] the past 12 months, has t he [employer], gas, oil or water company threatened to [...] Description 08/29/2025 12:45 PM EST Office Visit [facility] ADULT DENTAL [address] [place] [address] Zhanna Hernandez 10/03/2025 10:00 AM EST Office Visit [facility] MEDICINE [address] [place] [address] Aaron Pisano MD [address] [place] [address] 10/25/2025 11:00 AM EDT Clinical Support [facility] MEDICINE [address] [place] [address] 74721 Altagracia Mancilla RN 505 [place] [address] documented as of this encounter Goals Goal [...] as of this encounter Care Teams Insurance Verification Representative Relationship Specialty Start Date End Date Aaron Pisano MD [address] [place] [address] PCP - General Internal Medicine 05/10/14 Antonietta Lim Lactation ConsultantTailer Off 09/18/24 documented as of this encounter
--- OUTSIDE RECORDS SUMMARY | 2025-08-06 18:34 | XMS_ITS | Encounter Summary ---
Author Organization [employer] Address [address] [place] [address] 7 [place] [address] Care Team Providers Care General Education Professor Name Role Phone Aaron Pisano MD Primary Care Provide r Reason for Visit * Reason Onset Date Comments Med Refill 11/16/2022 Encounter Details Date Type Department Care Team ([facility] Contact Info[facility] Description 11/16/2022 Telephone [facility] MEDICINE [address] [place] [address] Aaron Pisano MD 230 [place] [address] Med Refill Social History Tobacco Use Types [...] MG immediate release tablet Please sent to [facility] - [place], [place] - [address] [place] [address] documented in this encounter Plan of Treatment Upcoming Encounters Date Type Department Care Team (Late st Contact Info) Description 08/29/2025 12:45 PM EST Office Visit [facility] ADULT DENTAL [address] [place] [address] Zhanna Hernandez 10/03/2025 10:00 AM EST Office Visit [facility] MEDICINE [address] [place] [address] Aaron Pisano MD [address] [place] [address] 10/25/2025 11:00 AM EDT Clinical Support [facility] MEDICINE [address] [place] [address] Altagracia Mancilla, RN 505 [place] [address] documented as of this encounter Visit Diagnoses Not on filedocumented in this encounter Care Teams General Education Professor Relationship Specialty Start Date End Date Aaron Pisano MD [address] [place] [address]148 PCP - General Internal Medicine 05/10/14 Antonietta Lim Loan Operations SpecialistEdger Machine Helper 09/18/24 documented as of this encounter
--- OUTSIDE RECORDS SUMMARY | 2025-08-06 18:34 | XMS_ITS | Encounter Summary ---
Author Organization [employer] Address 75 [facility] 7t [place] [address] Care Team Providers Care Machine Heddle Cleaner Name Role Phone Aaron Pisano MD Primary Care Provide r Reason for Visit * Reason Comments Med Refill Encounter Details Date Type Department Care Team ([facility] st Contact Info) Description 03/05/2025 Refill [facility] MEDICINE 230 [place] [address] Aaron Pisano MD 230 [place] [address] Chronic midline low back pain without sciatica [...] the past 12 months, has t he [employer], gas, oil or water company threatened to [...] Description 08/29/2025 12:45 PM EST Office Visit [facility] ADULT DENTAL [address] [place] [address] Zhanna Hernandez 10/03/2025 10:00 AM EST Office Visit [facility] MEDICINE [address] [place] [address] Aaron Pisano MD [address] [place] [address] 10/25/2025 11:00 AM EDT Clinical Support [facility] MEDICINE [address] [place] [address] 6[address] Altagracia Mancilla RN 505 [place] [address] documented as of this encounter Goals Goal [...] as of this encounter Care Teams Machine Heddle Cleaner Relationship Specialty Start Date End Date Aaron Pisano MD 230 [place] [address] PCP - General Internal Medicine 05/10/14 Antonietta Lim Brass ChaserInsulator Tester 09/18/24 documented as of this encounter
--- OUTSIDE RECORDS SUMMARY | 2025-08-06 18:34 | XMS_ITS | Encounter Summary ---
Author Organization [email or web address] Address 75 [facility] 7 [place] [address] Care Team Providers Care Physical Therapist Clinic Director Name Role Phone Aaron Pisano MD Primary Care Provide r Reason for Visit * Reason Comments Med Refill Encounter Details Date Type Department Care Team ([facility] st Contact Info) Description 01/30/2024 Refill [facility] MEDICINE 230 [place] [address] Aaron Pisano MD 230 [place] [address] Chronic midline low back pain without sciatica [...] Description 08/29/2025 12:45 PM EST Office Visit [facility] ADULT DENTAL [address] [place] [address] Zhanna Hernandez 10/03/2025 10:00 AM EST Office Visit [facility] MEDICINE [address] [place] [address] 9[address] Aaron Pisano MD [address] [place] [address] 9[address] 10/25/2025 11:00 AM EDT Clinical Support [facility] MEDICINE [address] [place] [address] 06[address] Altagracia Mancilla RN 505 [place] [address] documented as of this encounter Goals Goal [...] documented as of this encounter Care Teams Physical Therapist Clinic Director Relationship Specialty Start Date End Date Aaron Pisano MD [address] [place] [address], [place] [address] PCP - General Internal Medicine 05/10/14 Antonietta Lim Vegetable PickerPaper Finisher 09/18/24 documented as of this encounter
--- OUTSIDE RECORDS SUMMARY | 2025-08-06 18:34 | XMS_ITS | Encounter Summary ---
Author Organization [employer] Address 75 [facility] 7 [place] [address] Care Team Providers Care Heavy Mobile Equipment Repairer Name Role Phone Aaron Pisano MD Primary Care Provide r Reason for Visit * Reason Onset Date Comments Med Refill 03/05/2025 Encounter Details Date Type Department Care Team ([facility] st Contact Info) Description 03/05/2025 Refill [facility] MEDICINE 230 [place] [address] Aaron Pisano MD 230 [place] [address] Chronic midline low back pain without sciatica [...] Description 08/29/2025 12:45 PM EST Office Visit [facility] ADULT DENTAL [address] [place] [address] 477[address] Zhanna Hernandez 10/03/2025 10:00 AM EST Office Visit [facility] MEDICINE [address] [place] [address] Aaron Pisano MD [address] [place] [address] 10/25/2025 11:00 AM EDT Clinical Support [facility] MEDICINE [address] [place] [address] 12[address] Altagracia Mancilla RN 505 [place] [address] documented as of this encounter Goals Goal Patient Goal Type Associated Problems Recent Progress Patient-Stated? Author Blood Pressure < 140/90 Blood Pressure 130/83(10/01/2 025 3:21 PM EDT) No Giovanna Banks, SohamD documented as of this encounter Visit Diagnoses Diagnosis Chronic midline low back pain without sciatica documented in this encounter Additional Health Concerns Assessment Noted Time PHQ-9 Depression Total Score: 2 06/05/20 24 8:38 AM EDT documented as of this encounter Care Teams Heavy Mobile Equipment Repairer Relationship Specialty Start Date End Date Aaron Pisano MD [address] [place] [address] PCP - General Internal Medicine 05/10/14 Antonietta Lim Aircraft Magneto MechanicSenior Infrastructure Engineer 09/18/24 documented as of this encounter
--- OUTSIDE RECORDS SUMMARY | 2025-08-06 18:34 | XMS_ITS | Encounter Summary ---
Author Organization [employer] Address 75 [facility] 7t [place] [address] Care Team Providers Care Car Shagger Name Role Phone Aaron Pisano MD Primary Care Provide r Reason for Visit * Reason Comments Med Refill Encounter Details Date Type Department Care Team ([facility] st Contact Info) Description 04/04/2025 Refill [facility] MEDICINE 230 [place] [address] Aaron Pisano MD 230 [place] [address] Chronic midline low back pain without sciatica [...] the past 12 months, has t he [employer], gas, oil or water company threatened to [...] Description 08/29/2025 12:45 PM EST Office Visit [facility] ADULT DENTAL [address] [place] [address] Zhanna Hernandez 10/03/2025 10:00 AM EST Office Visit [facility] MEDICINE [address] [place] [address] Aaron Pisano MD [address] [place] [address] 10/25/2025 11:00 AM EDT Clinical Support [facility] MEDICINE [address] [place] [address] Altagracia Mancilla RN 505 [place] [address] documented as of this encounter Goals Goal [...] as of this encounter Care Teams Car Shagger Relationship Specialty Start Date End Date Aaron Pisano MD 230 [place] [address] PCP - General Internal Medicine 05/10/14 Antonietta Lim Sea Shell GathererRecreation Officer 09/18/24 documented as of this encounter
--- OUTSIDE RECORDS SUMMARY | 2025-08-06 18:34 | XMS_ITS | Encounter Summary ---
Author Organization [employer] Address [address] [place] [address] 7 [place] [address] Care Team Providers Care Client Evaluator Name Role Phone Aaron Pisano MD Primary Care Provide r Reason for Visit * Reason Onset Date Comments Med Refill 04/02/2025 Encounter Details Date Type Department Care Team ([facility] st Contact Info) Description 04/02/2025 Refill [facility] MEDICINE 230 [place] [address] Aaron Pisano MD 230 [place] [address] Diarrhea in adult patient Social History Tobacco [...] Description 08/29/2025 12:45 PM EST Office Visit [facility] ADULT DENTAL [address] [place] [address] Zhanna Hernandez 10/03/2025 10:00 AM EST Office Visit [facility] MEDICINE [address] [place] [address]80 Aaron Pisano MD [address] [place] [address] 10/25/2025 11:00 AM EDT Clinical Support [facility] [address] [place] [address] 14142 Altagracia Mancilla RN 505 [place] [address] documented as of this encounter Goals Goal [...] as of this encounter Care Teams Client Evaluator Relationship Specialty Start Date End Date Aaron Pisano MD 230 [place] [address] PCP - General Internal Medicine 05/10/14 Antonietta Lim Delivery Driver/Customer ServiceIndividual Pension Consultant 09/18/24 documented as of this encounter
--- OUTSIDE RECORDS SUMMARY | 2025-08-06 18:35 | XMS_ITS | Encounter Summary ---
Author Organization [employer] Address 75 [facility] 7 [place] [address] Care Team Providers Care Maintenance Technician Name Role Phone Aaron Pisano MD Primary Care Provide r Reason for Visit * Reason Comments Med Refill Encounter Details Date Type Department Care Team ([facility] st Contact Info) Description 08/09/2023 Refill [facility] MEDICINE 230 [place] [address] Sumi Vang, ANP 230 [place] [address] Chronic midline low back pain without sciatica [...] Visit [facility] ADULT DENTAL [address] [place] [address] Zhanna Hernandez 10/03/2025 10:00 AM EST Office Visit [facility] MEDICINE [address] [place] [address] Aaron Pisano MD [address] [place] [address] 8[address] 10/25/2025 11:00 AM EDT Clinical Support [facility] MEDICINE [address] [place] [address] 83387 Altagracia Mancilla, RN 505 [place] [address] documented as of this encounter Goals Goal Patient Goal Type Associated Problems Recent Progress Patient-Stated? Author Blood Pressure < 140/90 Blood Pressure 130/83( 025 3:21 PM EDT) No Giovanna Banks, PharmD documented as of this encounter Visit Diagnoses Diagnosis Chronic midline low back pain without sciatica documented in this encounter Care Teams Maintenance Technician Relationship Specialty Start Date End Date Aaron Pisano MD [address] [place] [address] 94[address] PCP - General Internal Medicine 05/10/14 Antonietta Lim Combination WelderJob Development Specialist 09/18/24 documented as of this encounter
--- OUTSIDE RECORDS SUMMARY | 2025-08-06 18:35 | XMS_ITS | Encounter Summary ---
Author Organization [employer] Address 75 [facility] 7 [place] [address] Care Team Providers Care Netsuite Developer Name Role Phone Aaron Pisano MD Primary Care Provide r Reason for Visit * Reason Onset Date Comments Med Refill 07/29/2025 Encounter Details Date Type Department Care Team ([facility] st Contact Info) Description 07/29/2025 Refill [facility]INE 230 [place] [address] Aaron Pisano MD 230 [place] [address] Chronic midline low back pain without sciatica [...] EST Office Visit [facility] ADULT DENTAL [address] [place] [address] Zhanna Hernandez 10/03/2025 10:00 AM EST Office Visit [facility] MEDICINE [address] [place] [address] 7[address] Aaron Pisano MD [address] [place] [address] 10/25/2025 11:00 AM EDT Clinical Support [facility] [address] [place] [address] 93391 Altagracia Mancilla RN 505 [place] [address] documented as of this encounter Goals Goal [...] documented as of this encounter Care Teams Netsuite Developer Relationship Specialty Start Date End Date Aaron Pisano MD [address] [place] [address] PCP - General Internal Medicine 05/10/14 Antonietta Lim Painter SetGreenskeeper Supervisor 09/18/24 documented as of this encounter
--- OUTSIDE RECORDS SUMMARY | 2025-08-06 18:35 | XMS_ITS | Encounter Summary ---
Author Organization [employer] Address [address] [place] [address] 7 [place] [address] Care Team Providers Care Director Chemistry Name Role Phone Aaron Pisano MD Primary Care Provide r Encounter Details Date Type Department Care Team (Latest Contact Info) Description 11/10/2020 Abstract [facility] CONVERSIONS Dental, Provider, DDS Social History Tobacco [...] Care Team ( st Contact Info) Description 08/29/2025 12:45 PM EST Office Visit [facility] ADULT DENTAL [address] [place] [address] Zhanna Hernandez 10/03/2025 10:00 AM EST Office Visit [facility] MEDICINE [address] [place] [address] 8[address] Aaron Pisano MD [address] [place] [address] 26[address] 10/25/2025 11:00 AM EDT Clinical Support [facility] MEDICINE [address] [place] [address] 11008 Altagracia Mancilla RN 505 [place] [address] documented as of this encounter Visit Diagnoses Not on filedocumented in this encounter Care Teams Director Chemistry Relationship Specialty Start Date End Date Aaron Pisano MD [address] [place] [address] 6[address]65 PCP - General Internal Medicine 05/10/14 Antonietta Lim Power Nut Runner OperatorJet Dyeing Machine Tender 09/18/24 documented as of this encounter
--- OUTSIDE RECORDS SUMMARY | 2025-08-06 18:35 | XMS_ITS | Encounter Summary ---
Author Organization [employer] Address [address] [place] [address] 7 [place] [address] Care Team Providers Care Internal Medicine Physician Name Role Phone Aaron Pisano MD Primary Care Provide r Reason for Visit * Reason Comments Med Refill Encounter Details Date Type Department Care Team (Late Contact Info) Description 04/18/2023 Refill [facility] MEDICINE [address] [place] [address] Aaron Pisano MD [address] [place] [address]64 Chronic bilateral low back pain without sciatica [...] Department Care Team (Late Contact Info) Description 08/29/2025 12:45 PM EST Office Visit [facility] ADULT DENTAL [address] [place] [address] [phone] Zhanna Hernandez 10/03/2025 10:00 AM EST Office Visit [facility] MEDICINE [address] [place] [address] 95680 Aaron Pisano MD 230 [place] [address] 10/25/2025 11:00 AM EDT Clinical Support [facility] MEDICINE [address] [place] [address] 61698 Altagracia Mancilla, RN 505 [place] [address] documented as of this encounter Goals Goal Patient Goal Type Associated Problems Recent Progress Patient-Stated? Author Blood Pressure < 140/90 Blood Pressure 130/83( 025 3:21 PM EDT) No Giovanna Banks, PharmD documented as of this encounter Visit Diagnoses Diagnosis Chronic bilateral low back pain without sciatica documented in this encounter Care Teams Internal Medicine Physician Relationship Specialty Start Date End Date Aaron Pisano MD [address] [place] [address] PCP - General Internal Medicine 05/10/14 Antonietta Lim Rubber EngraverGenetics Nurse 09/18/24 documented as of this encounter
--- OUTSIDE RECORDS SUMMARY | 2025-08-06 18:35 | XMS_ITS | Encounter Summary ---
Author Organization [employer] Address [address] [place] [address] 7 [place] [address] Care Team Providers Care Offbearer Sewer Pipe Name Role Phone Aaron Pisano MD Primary Care Provide r Encounter Details Date Type Department Care Team (Latest Contact Info) Description 07/16/2019 Abstract [facility] CONVERSIONS Dental, Provider, DDS Social History Tobacco [...] Description 08/29/2025 12:45 PM EST Office Visit [facility] ADULT DENTAL [address] [place] [address] 24772 Zhanna Hernandez 10/03/2025 10:00 AM EST Office Visit [facility] MEDICINE [address] [place] [address] Aaron Pisano MD [address] [place] [address] 8[address] 10/25/2025 11:00 AM EDT Clinical Support [facility] MEDICINE [address] [place] [address] 15143 Altagracia Mancilla RN 505 [place] [address] documented as of this encounter Visit Diagnoses Not on filedocumented in this encounter Care Teams Offbearer Sewer Pipe Relationship Specialty Start Date End Date Aaron Pisano MD [address] [place] [address] PCP - General Internal Medicine 05/10/14 Antonietta Lim Gasoline Locomotive Crane OperatorDirector Correctional Agency 09/18/24 documented as of this encounter
--- OUTSIDE RECORDS SUMMARY | 2025-08-06 18:35 | XMS_ITS | Encounter Summary ---
Author Organization [employer] Address [address] [place] [address] 7 [place] [address] Care Team Providers Care Mounted Police Officer Name Role Phone Aaron Pisano MD Primary Care Provide r Reason for Visit * Reason Onset Date Comments Results 07/31/2025 Encounter Details Date Type Department Care Team ([facility] Contact Info) Description 07/31/2025 Results Follow-Up [facility] MEDICINE 230 [place] [address] Aaron Pisano MD [address] [place] [address] MR Lumbar Spine w/o Contrast Social History Tobacco Use Types Packs/Day Years [...] encounter Miscellaneous Notes * Telephone Encounter - Isa Spivey RN - 07/31/2025 11:55 AM EST Telephone call to pt, reviewed MRI results. Pt has appointment at [facility] August 14, 2025. She reports increased back pain over the last few months and asked if her oxycodone 5mg can be increased. She reports taking baclofen (states doesn't help) and bough bio-freeze OTC (spray cooling agent, states doesn't help). Advised her will send message to PCP but important to keep appointment with [facility], encouraged her to call for cancellations sooner. Pt verbalized understanding. Faxed MRI to [facility], confirmation received. * Telephone Encounter - Isa Spivey RN - 07/31/2025 11:46 AM EST ----- Message from Aaron Harris MD sent at 07/31/2025 11:37 AM EST ----- Patient was referred to [facility]. Please find out if she was already seen and forward result of MRI ----- Message ----- From: Heriberto Michael Results In Sent: 07/26/2025 6:19 AM EST To: Aaron Harris MD * Result Encounter Note - Aaron Harris MD - 07/31/2025 11:37 AM EST Patient was referred to [facility]. Please find out if she was already seen and forward result of MRI documented in this encounter Plan of Treatment Upcoming Encounters Date Type Department Care Team (Late st Contact Info) Description 08/29/2025 12:45 PM EST Office Visit [facility] ADULT DENTAL [address] [place] [address] Zhanna Hernandez 10/03/2025 10:00 AM EST Office Visit [facility] MEDICINE [address] [place] [address] Aaron Pisano MD 230 [place] [address] 10/25/2025 11:00 AM EDT Clinical Support [facility] MEDIC[facility] [address] [place] [address] 78084 Altagracia Mancilla, GRACIELA 505 [place] [address] documented as of this encounter Goals Goal [...] documented as of this encounter Care Teams Mounted Police Officer Relationship Specialty Start Date End Date Aaron Pisano MD [address] [place] [address] PCP - General Internal Medicine 05/10/14 Antonietta Lim Refrigeration Plant OperatorBlind Lacer 09/18/24 documented as of this encounter
--- OUTSIDE RECORDS SUMMARY | 2025-08-06 18:35 | XMS_ITS | Encounter Summary ---
Author Organization [employer] Address [address] [place] [address] 7 [place] [address] Care Team Providers Care Carding Machine Operator Name Role Phone Aaron Pisano MD Primary Care Provide r Reason for Visit * Reason Onset Date Comments Med Refill 08/12/2024 Encounter Details Date Type Department Care Team ([facility] st Contact Info) Description 08/12/2024 Refill [facility] MEDICINE 230 [place] [address] Aaron Pisano MD [address] [place] [address] Social History Tobacco Use Types Packs/Day Years [...] Description 08/29/2025 12:45 PM EST Office Visit [facility] ADULT DENTAL [address] [place] [address] Zhanna Hernandez 10/03/2025 10:00 AM EST Office Visit [facility] MEDICINE [address] [place] [address] Aaron Pisano MD [address] [place] [address] 10/25/2025 11:00 AM EDT Clinical Support [facility] MEDICINE [address] [place] [address] 18518 Altagracia Mancilla RN 505 [place] [address] documented as of this encounter Goals Goal [...] documented as of this encounter Care Teams Carding Machine Operator Relationship Specialty Start Date End Date Aaron Pisano MD [address] [place] [address] PCP - General Internal Medicine 05/10/14 Antonietta Lim Counseling AideFisher Hand Line 09/18/24 documented as of this encounter
--- OUTSIDE RECORDS SUMMARY | 2025-08-06 18:35 | XMS_ITS | Encounter Summary ---
Author Organization [employer] Address 75 [facility] 7t [place] [address] Care Team Providers Care Welder Fitter Apprentice Name Role Phone Aaron Pisano MD Primary Care Provide r Reason for Visit * Reason Comments Med Refill Encounter Details Date Type Department Care Team ([facility] st Contact Info) Description 07/29/2025 Refill [facility] MEDICINE 230 [place] [address] Aaron Pisano MD 230 [place] [address] Chronic midline low back pain without sciatica [...] the past 12 months, has t he [employer], gas, oil or water company threatened to [...] Description 08/29/2025 12:45 PM EST Office Visit [facility] ADULT DENTAL [address] [place] [address] Zhanna Hernandez 10/03/2025 10:00 AM EST Office Visit [facility] MEDICINE [address] [place] [address] Aaron Pisano MD [address] [place] [address] 10/25/2025 11:00 AM EDT Clinical Support [facility] MED[facility]INE [address] [place] [address] Altagracia Mancilla RN 505 [place] [address] documented as of this encounter Goals Goal [...] documented as of this encounter Care Teams Welder Fitter Apprentice Relationship Specialty Start Date End Date Aaron Pisano MD 230 [place] [address] PCP - General Internal Medicine 05/10/14 Antonietta Lim Film Library ClerkQuenching Car Operator 09/18/24 documented as of this encounter
--- OUTSIDE RECORDS SUMMARY | 2025-08-06 18:35 | XMS_ITS | Encounter Summary ---
Author Organization [employer] Address [address] [place] [address] 7 [place] [address] Care Team Providers Care Service Advisor Name Role Phone Aaron Pisano MD Primary Care Provide r Reason for Visit * Reason Onset Date Comments Med Refill 08/12/2024 Encounter Details Date Type Department Care Team ([facility] st Contact Info) Description 08/12/2024 Refill [facility] MEDICINE 230 [place] [address] Aaron Pisano MD 230 [place] [address] Smoker Social History Tobacco Use Types Packs/Day [...] Description 08/29/2025 12:45 PM EST Office Visit [facility] ADULT DENTAL [address] [place] [address] Zhanna Hernandez 10/03/2025 10:00 AM EST Office Visit [facility] MEDICINE [address] [place] [address] Aaron Pisano MD [address] [place] [address] 10/25/2025 11:00 AM EDT Clinical Support [facility] MED[facility] [address] [place] [address] Altagracia Mancilla RN 505 [place] [address] documented as of this encounter Goals Goal [...] as of this encounter Care Teams Service Advisor Relationship Specialty Start Date End Date Aaron Pisano MD [address] [place] [address] PCP - General Internal Medicine 05/10/14 Antonietta Lim Visitor Services Information AssistantAutomobile Dealer 09/18/24 documented as of this encounter
--- OUTSIDE RECORDS SUMMARY | 2025-08-06 18:35 | XMS_ITS | Encounter Summary ---
Author Organization [employer] Address 75 [facility] 7t [place] [address] Care Team Providers Care Brand Recorder Name Role Phone Aaron Pisano MD Primary Care Provide r Reason for Visit * Reason Comments Med Refill Encounter Details Date Type Department Care Team ([facility] st Contact Info) Description 07/29/2025 Refill [facility] MEDICINE 230 [place] [address] Aaron Pisano MD 230 [place] [address] Chronic midline low back pain without sciatica [...] the past 12 months, has t he [employer], gas, oil or water company threatened to [...] Description 08/29/2025 12:45 PM EST Office Visit [facility] ADULT DENTAL [address] [place] [address] Zhanna Hernandez 10/03/2025 10:00 AM EST Office Visit [facility] MEDICINE [address] [place] [address] Aaron Pisano MD [address] [place] [address] 10/25/2025 11:00 AM EDT Clinical Support [facility] MEDICINE [address] [place] [address] Altagracia Mancilla RN 505 [place] [address] documented as of this encounter Goals Goal [...] as of this encounter Care Teams Brand Recorder Relationship Specialty Start Date End Date Aaron Pisano MD 230 [place] [address] PCP - General Internal Medicine 05/10/14 Antonietta Lim Heating TechnicianMysql Developer 09/18/24 documented as of this encounter
--- OUTSIDE RECORDS SUMMARY | 2025-08-06 18:35 | XMS_ITS | Encounter Summary ---
Author Organization [employer] Address [address] [place] [address] 7 [place] [address] Care Team Providers Care Orthotics Technician Name Role Phone Aaron Pisano MD Primary Care Provide r Reason for Visit * Reason Onset Date Comments Med Refill 09/14/2022 Encounter Details Date Type Department Care Team (Late st Contact Info) Description 09/14/2022 Telephone [facility] MEDICINE 230 [place] [address] Aaron Pisano MD 230 [place] [address] Med Refill Social History Tobacco Use Types [...] 12:45 PM EST Office Visit [facility] ADULT DENTAL [address] [place] [address] Zhanna Hernandez 10/03/2025 10:00 AM EST Office Visit [facility] MED[facility]INE [address] [place] [address] Aaron Pisano MD [address] [place] [address] 10/25/2025 11:00 AM EDT Clinical Support [facility] [address] [place] [address] 89[address] Altagracia Mancilla, GRACIELA 505 [place], [place] [phone] documented as of this encounter Visit Diagnoses Not on filedocumented in this encounter Care Teams Orthotics Technician Relationship Specialty Start Date End Date Aaron Pisano MD [address] [place] [address] PCP - General Internal Medicine 05/10/14 Antonietta Lim Associate Store ManagerRn Recovery 09/18/24 documented as of this encounter
--- OUTSIDE RECORDS SUMMARY | 2025-08-06 18:35 | XMS_ITS | Encounter Summary ---
Author Organization [employer] Address 75 [facility] 7 [place] [address] Care Team Providers Care Laboratory Administrative Director Name Role Phone Aaron Pisano MD Primary Care Provide r Reason for Visit * Reason Comments Med Refill Encounter Details Date Type Department Care Team ([facility] st Contact Info) Description 07/07/2023 Refill [facility] MEDICINE 230 [place] [address] Aaron Pisano MD 230 [place] [address] Social History Tobacco Use Types Packs/Day Years [...] Description 08/29/2025 12:45 PM EST Office Visit [facility] ADULT DENTAL [address] [place] [address] Zhanna Hernandez 10/03/2025 10:00 AM EST Office Visit [facility] MEDICINE [address] [place] [address] Aaron Pisano MD [address] [place] [address] 10/25/2025 11:00 AM EDT Clinical Support [facility] MED[facility]INE [address] [place] [address] Altagracia Mancilla, GRACIELA 505 [place] [address] documented as of this encounter Goals Goal Patient Goal Type Associated Problems Recent Progress Patient-Stated? Author Blood Pressure < 140/90 Blood Pressure 130/83( 025 3:21 PM EDT) No Ronnys-Giovanna Ayala, PharmD documented as of this encounter Visit Diagnoses Not on filedocumented in this encounter Care Teams Laboratory Administrative Director Relationship Specialty Start Date End Date Aaron Pisano MD [address] [place] [address] PCP - General Internal Medicine 05/10/14 Antonietta Lim Lead LoaderGrain Manager 09/18/24 documented as of this encounter
--- OUTSIDE RECORDS SUMMARY | 2025-08-06 18:35 | XMS_ITS | Encounter Summary ---
Author Organization [employer] Address 75 [facility] 7 [place] [address] Care Team Providers Care Recreation Manager Name Role Phone Aaron Pisano MD Primary Care Provide r Reason for Visit * Reason Onset Date Comments Med Refill 02/05/2025 Encounter Details Date Type Department Care Team ([facility] st Contact Info) Description 02/05/[address] [facility] CHC MED & PEDS 505 [place] [address] Fam Hartman MD 505 [place] [address] Chronic midline low back pain without sciatica [...] Description 08/29/2025 12:45 PM EST Office Visit [facility] ADULT DENTAL [address] [place] [address] Zhanna Hernandez 10/03/2025 10:00 AM EST Office Visit [facility] MEDICINE [address] [place] [address] Aaron Pisano MD [address] [place] [address] 10/25/2025 11:00 AM EDT Clinical Support [facility] MEDICINE [address] [place] [address] 9[address]25 Altagracia Mancilla RN 505 [place] [address] documented as of this encounter Goals Goal Patient Goal Type Associated Problems Recent Progress Patient-Stated? Author Blood Pressure < 140/90 Blood Pressure 130/83( 025 3:21 PM EDT) Giovanna Edwards, Cr[place]en documented as of this encounter Visit Diagnoses Diagnosis Chronic midline low back pain without sciatica documented in this encounter Additional Health Concerns Assessment Noted Time PHQ-9 Depression Total Score: 2 06/05/20 24 8:38 AM EDT documented as of this encounter Care Teams Recreation Manager Relationship Specialty Start Date End Date Aaron Pisano MD [address] [place] [address] PCP - General Internal Medicine 05/10/14 Antonietta Lim Runway ModelGyro Compass Tester 09/18/24 documented as of this encounter
--- OUTSIDE RECORDS SUMMARY | 2025-08-06 18:35 | XMS_ITS | Encounter Summary ---
Author Organization [employer] Address 75 [facility] 7 [place] [address] Care Team Providers Care Chamber Of Commerce Division Manager Name Role Phone Aaron Pisano MD Primary Care Provide r Reason for Visit * Reason Comments Med Refill Encounter Details Date Type Department Care Team ([facility] st Contact Info) Description 05/07/2024 Refill [facility] MEDICINE 230 [place] [address] Aaron Pisano MD 230 [place] [address] Chronic midline low back pain without sciatica [...] [facility] [address] [place] [address] Zhanna Hernandez 10/03/2025 10:00 AM EST Office Visit [facility] MEDICINE [address] [place] [address] Aaron Pisano MD [address] [place] [address] 1965[address] 10/25/2025 11:00 AM EDT Clinical Support [facility] MEDICINE [address] [place] [address] 19326 Altagracia Mancilla RN 505 [place] [address] documented as of this encounter Goals Goal [...] documented as of this encounter Care Teams [employer] Division Manager Relationship Specialty Start Date End Date Aaron Pisano MD [address] [place] [address], [place] [address] PCP - General Internal Medicine 05/10/14 Antonietta Lim Utility RepairerInflated Ball Molder 09/18/24 documented as of this encounter
--- OUTSIDE RECORDS SUMMARY | 2025-08-06 18:35 | XMS_ITS | Encounter Summary ---
Author Organization [employer] Address [address] [place] [address] 7 [place] [address] Care Team Providers Care Deportation Officer Name Role Phone Aaron Pisano MD Primary Care Provide r Reason for Visit * Reason Onset Date Comments Med Refill 04/04/2023 Encounter Details Date Type Department Care Team ([facility] st Contact Info) Description 04/04/2023 Telephone [facility] MEDICINE 230 [place] [address] Aaron Pisano MD 230 [place] [address] Med Refill Social History Tobacco Use Types [...] Description 08/29/2025 12:45 PM EST Office Visit [facility] ADULT DENTAL [address] [place] [address] HernandezMasood rileysa 10/03/2025 10:00 AM EST Office Visit [facility] MEDICINE [address] [place] [address] [phone] Aaron Pisano MD [address] [place] [address] 67598 10/25/2025 11:00 AM EDT Clinical Support [address] [phone] Altagracia Mancilla, RN 505 [place], [place] [phone] documented as of this encounter Goals Goal Patient Goal Type Associated Problems Recent Progress Patient-Stated? Author Blood Pressure < 140/90 Blood Pressure 130/83( 025 3:21 PM EDT) No Giovanna Banks, PharmD documented as of this encounter Visit Diagnoses Not on filedocumented in this encounter Care Teams Deportation Officer Relationship Specialty Start Date End Date Aaron Pisano MD [address] [place] [address] [phone] PCP - General Internal Medicine 05/10/14 Antonietta Lim Merchandise Planning ManagerAutomated Cutting Machine Operator 09/18/24 documented as of this encounter
--- OUTSIDE RECORDS SUMMARY | 2025-08-06 18:35 | XMS_ITS | Encounter Summary ---
Author Organization [employer] Address 75 [facility] 7 [place] [address] Care Team Providers Care Credit Reporter Name Role Phone Aaron Pisano MD Primary Care Provide r Reason for Visit * Reason Onset Date Comments PT1 07/26/2025 Encounter Details Date Type Department Care Team ([facility] Contact Info) Description 07/26/2025 Telephone [facility] MEDICINE 230 [place] [address] Aaron Pisano MD 230 [place] [address] PT1 Social History Tobacco Use Types Packs/Day Years [...] encounter Miscellaneous Notes * Telephone Encounter - Rebecca Campoverde - 07/26/2025 9:39 AM EST Patient calling requesting PT1 Home Address verified: Y/N: Yes Provider name or facility name: [facility] [address] [place] [address] Escort needed: Y/N: No Do you have a wheelchair: Y/N: No If yes- Manual or electric: Visits: 2 x monthly documented in this encounter Plan of Treatment Upcoming Encounters Date Type Department Care Team (Late st Contact Info) Description 08/29/2025 12:45 PM EST Office Visit [facility] ADULT DENTAL 230 [place] [address] Zhanna Hernandez 10/03/2025 10:00 AM EST Office Visit [facility] MEDICINE 230 [place] [address] Aaron Pisano MD 230 [place] [address] 10/25/2025 11:00 AM EDT Clinical Support [facility] MEDICINE 230 [place] [address] Altagracia Mancilla, RN [address] [place] [address] documented as of this encounter Goals Goal [...] documented as of this encounter Care Teams Credit Reporter Relationship Specialty Start Date End Date Aaron Pisano MD 230 [place] [address] PCP - General Internal Medicine 05/10/14 Antonietta Lim Thoroughbred Horse Farm ManagerHealth Information Administrator 09/18/24 documented as of this encounter
--- OUTSIDE RECORDS SUMMARY | 2025-08-06 18:35 | XMS_ITS | Encounter Summary ---
Author Organization [employer] Address [address] [place] [address] 7 [place] [address] Care Team Providers Care Director Of Corporate Communications Name Role Phone Aaron Pisano MD Primary Care Provide r Reason for Visit * Reason Onset Date Comments Med Refill 08/02/2024 Encounter Details Date Type Department Care Team ([facility] Contact Info) Description 08/02/2024 Telephone [facility] MEDICINE 230 [place] [address] Aaron Pisano MD 230 [place] [address] Med Refill Social History Tobacco Use Types [...] Description 08/29/2025 12:45 PM EST Office Visit [facility] ADULT DENTAL [address] [place] [address] Zhanna Hernandez 10/03/2025 10:00 AM EST Office Visit [facility] MEDICINE [address] [place] [address] Aaron Pisano MD [address] [place] [address] 10/25/2025 11:00 AM EDT Clinical Support [facility] MEDICINE [address] [place] [address] 34965 Altagracia Mancilla RN 505 [place] [address] documented as of this encounter Goals Goal [...] of this encounter Care Teams Director Of Corporate Communications Relationship Specialty Start Date End Date Aaron Pisano MD [address] [place] [address] PCP - General Internal Medicine 05/10/14 Antonietta Lim Hvac SpecialistPrincipal Systems Engineer 09/18/24 documented as of this encounter
--- OUTSIDE RECORDS SUMMARY | 2025-08-06 18:35 | XMS_ITS | Encounter Summary ---
Author Organization [employer] Address 75 [facility] 7 [place] [address] Care Team Providers Care Chip Mixer Name Role Phone Aaron Pisano MD Primary Care Provide r Reason for Visit * Reason Onset Date Comments Med Refill 06/03/2025 Encounter Details Date Type Department Care Team ([facility] Contact Info) Description 06/03/2025 Telephone [facility] MEDICINE 230 [place] [address] Aaron Pisano MD 230 [place] [address] Med Refill Social History Tobacco Use Types [...] the past 12 months, has t he [employer], gas, oil or water company threatened to [...] immediate release tablet To be sent to: [facility] [place], [place] - [address] [place] [address] documented in this encounter Plan of Treatment Upcoming Encounters Date Type Department Care Team ([facility] st Contact Info) Description 08/29/2025 12:45 PM EST Office Visit [facility] ADULT DENTAL 230 [place] [address] Zhanna Hernandez 10/03/2025 10:00 AM EST Office Visit [facility] MEDICINE 230 [place] [address] Aaron Pisano MD 230 [place] [address] 10/25/2025 11:00 AM EDT Clinical Support [facility] MEDICINE 230 [place] [address] Altagracia Mancilla RN 505 [place] [address] documented as of this encounter Goals Goal [...] documented as of this encounter Care Teams Chip Mixer Relationship Specialty Start Date End Date Aaron Pisano MD 230 [place] [address] PCP - General Internal Medicine 05/10/14 Antnoietta Lim Bundle Tier And LabelerShove Up 09/18/24 documented as of this encounter
--- OUTSIDE RECORDS SUMMARY | 2025-08-06 18:35 | XMS_ITS | Encounter Summary ---
Author Organization [employer] Address [address] [place] [address] 7 [place] [address] Care Team Providers Care Tractor Mechanic Apprentice Name Role Phone Aaron Pisano MD Primary Care Provide r Reason for Visit * Reason Onset Date Comments Med Refill 08/24/2022 Encounter Details Date Type Department Care Team ([facility] st Contact Info) Description 08/24/2022 Telephone [facility] MEDICINE [address] [place] [address] Aaron Pisano MD 230 [place] [address] Med Refill Social History Tobacco Use Types [...] Description 08/29/2025 12:45 PM EST Office Visit [facility] ADULT DENTAL [address] [place] [address] Zhanna Hernandez 10/03/2025 10:00 AM EST Office Visit [facility] MEDICINE [address] [place] [address] Aaron Pisano MD [address] [place] [address] 10/25/2025 11:00 AM EDT Clinical Support [address] [address] Altagracia Mancilla RN 505 [place] [address] documented as of this encounter Visit Diagnoses Not on filedocumented in this encounter Care Teams Tractor Mechanic Apprentice Relationship Specialty Start Date End Date Aaron Pisano MD [address] [place] [address] PCP - General Internal Medicine 05/10/14 Antonietta Lim Certified Art TherapistPlant Buyer 09/18/24 documented as of this encounter
--- OUTSIDE RECORDS SUMMARY | 2025-08-06 18:35 | XMS_ITS | Encounter Summary ---
Author Organization [employer] Address 75 [facility] 7t [place] [address] Care Team Providers Care Hull Outfit Supervisor Name Role Phone Aaron Pisano MD Primary Care Provide r Reason for Visit * Reason Onset Date Comments Med Refill 06/01/2023 Encounter Details Date Type Department Care Team (Late st Contact Info) Description 06/01/2023 Refill [facility] CHC MED & PEDS [address] [place] [address] Sumi Vang, ANP 230 [place] [address] Chronic midline low back pain without sciatica [...] 12:45 PM EST Office Visit [facility] ADULT DENTAL [address] [place] [address] hZanna Hernandez 10/03/2025 10:00 AM EST Office Visit [facility] MEDICINE [address] [place] [address] Aaron Pisano MD [address] [place] [address] 10/25/2025 11:00 AM EDT Clinical Support [facility] MEDICINE [address] [place] [address] Altagracia Mancilla, GRACIELA 505 [place] [address] documented as of this encounter Goals Goal Patient Goal Type Associated Problems Recent Progress Patient-Stated? Author Blood Pressure < 140/90 Blood Pressure 130/83( 025 3:21 PM EDT) No Giovanna Banks, PharmD documented as of this encounter Visit Diagnoses Diagnosis Chronic midline low back pain without sciatica documented in this encounter Care Teams Hull Outfit Supervisor Relationship Specialty Start Date End Date Aaron Pisano MD [address] [place] [address] PCP - General Internal Medicine 05/10/14 Antonietta Lim Manager Of TaxAsbestos Removal Supervisor 09/18/24 documented as of this encounter
--- OUTSIDE RECORDS SUMMARY | 2025-08-06 18:35 | XMS_ITS | Encounter Summary ---
Author Organization [employer] Address [address] [place] [address] [address] [address] Care Team Providers Care Critical Care Physician Name Role Phone Aaron Pisano MD Primary Care Provide r Reason for Visit * Reason Comments Med Refill Encounter Details Date Type Department Care Team (Late Contact Info) Description 03/15/2023 Refill [facility] MEDICINE [address] [place] [address] Aaron Pisano MD [address] [place] [address] Smoker Social History Tobacco Use Types Packs/Day [...] Encounters Date Type Department Care Team ([facility] Contact Info) Description 08/29/2025 12:45 PM EST Office Visit [facility] ADULT DENTAL [address] [place] [address] [phone] Zhanna Hernandez 10/03/2025 10:00 AM EST Office Visit [facility] MEDICINE [address] [place] [address] [phone] Aaron Pisano MD 230 [place] [address] 10/25/2025 11:00 AM EDT Clinical Support [facility] MEDICINE 230 [place] [address] Altagracia Mancilla, RN 505 [place] [address] documented as of this encounter Visit Diagnoses Diagnosis Smoker Tobacco use disorder documented in this encounter Care Teams Critical Care Physician Relationship Specialty Start Date End Date Aaron Pisano MD 230 [place] [address] PCP - General Internal Medicine 05/10/14 Antonietta Lim Financial Services AssistantAbattoir Manager 09/18/24 documented as of this encounter
--- OUTSIDE RECORDS SUMMARY | 2025-08-06 18:35 | XMS_ITS | Encounter Summary ---
Author Organization [employer] Address [address] [facility] [address] [place] [address] Care Team Providers Care Biofuels Product Manager Name Role Phone Aaron Pisano MD Primary Care Provide r Reason for Visit * Reason Comments Med Refill Encounter Details Date Type Department Care Team ([facility] st Contact Info) Description 07/04/2023 Refill [facility] MED & PEDS [address] [place], [place] [id number] Sumi Vang, ANP [address] [place] [address] Social History Tobacco Use Types Packs/Day Years Used Date Smoking Tobacco: Former Cigarettes Passive Smoke Exposure: Never Smokeless Tobacco: Never Alcohol Use Standard Drinks/Week Comments Never 0 (1 standard drink = 0.6 oz pur e alcohol) Housing Stability Answer Date Recorded What is your housing situation today? I do not have housing (Staying with others, in a hotel, in a chcf, living outside on the street, on a [...] Description 08/29/2025 12:45 PM EST Office Visit [facility] ADULT DENTAL [address] [place] [phone] Zhanna Hernandez 10/03/2025 10:00 AM EST Office Visit [facility] MEDICINE [address] [place] [phone] Aaron Pisano MD [address] [place] [phone] 10/25/2025 11:00 AM EDT Clinical Support [facility] MEDICINE [address] [place] [phone] Altagracia Mancilla, GRACIELA [address] [place] [address] documented as of this encounter Goals Goal Patient Goal Type Associated Problems Recent Progress Patient-Stated? Author Blood Pressure < 140/90 Blood Pressure 130/83( 025 3:21 PM EDT) No Ronnys-Giovanna Ayala, PharmD documented as of this encounter Visit Diagnoses Not on filedocumented in this encounter Care Teams Biofuels Product Manager Relationship Specialty Start Date End Date Aaron Pisano MD [address] [place] [phone] PCP - General Internal Medicine 05/10/14 Antonietta Lim Social Media CoordinatorAutomotive Parts Specialist 09/18/24 documented as of this encounter
--- OUTSIDE RECORDS SUMMARY | 2025-08-06 18:35 | XMS_ITS | Encounter Summary ---
Author Organization [employer] Address [address] [facility] 7 [place] [address] Care Team Providers Care Oscillograph Technician Name Role Phone Aaron Pisano MD Primary Care Provide r Reason for Visit * Reason Onset Date Comments PT-1 06/11/2025 Encounter Details Date Type Department Care Team ([facility] Contact Info) Description 06/11/[address] [facility] MEDICINE [address] [place] [address] Aaron Pisano MD [address] [place] [address] PT-1 Social History Tobacco Use Types Packs/Day [...] Y/N: Yes Provider name or facility name: [facility] Facility Address: [address] [facility] [place] Escort needed: Y/N: No Do you have a wheelchair: Y/N: No If yes- Manual or electric: N/A Visits: Once a month - Patient calling requesting PT1 Home Address verified: Y/N: Yes Provider name or facility name: [facility] Facility Address: [address] [facility] [place] Escort needed: Y/N: No Do you have a wheelchair: Y/N: No If yes- Manual or electric: N/A Visits: 3 times a month - Patient calling requesting PT1 Home Address verified: Y/N: Yes Provider name or facility name: [facility] [employer] [facility] Facility Address: [address] [facility] [place] Escort needed: Y/N: No Do you have a wheelchair: Y/N: No If yes- Manual or electric: N/A Visits: Once a month - Patient calling requesting PT1 Home Address verified: Y/N: Yes Provider name or facility name: [facility] Facility Address: [address] [facility] Escort needed: Y/N: No Do you have a wheelchair: Y/N: No If yes- Manual or electric: N/A Visits: 3 times a month - Patient calling requesting PT1 Home Address verified: Y/N: Yes Provider name or facility name: [facility] Facility Address: [address] [place] [address] Escort needed: Y/N: No Do you have a wheelchair: Y/N: No If yes- Manual or electric: N/A Visits: Once a month documented in this encounter Plan of Treatment Upcoming Encounters Date Type Department Care Team ([facility] st Contact Info) Description 08/29/2025 12:45 PM EST Office Visit [facility] ADULT DENTAL [address] [place] [phone] Zhanna Hernandez 10/03/2025 10:00 AM EST Office Visit [facility] MEDICINE [address] [place] [phone] Aaron Pisano MD [address] [place] [phone] 10/25/2025 11:00 AM EDT Clinical Support [facility] MEDICINE [address] [place] [phone] Altagracia Mancilla RN [address] [place] [address] documented as of this encounter Goals Goal [...] documented as of this encounter Care Teams Oscillograph Technician Relationship Specialty Start Date End Date Aaron Pisano MD [address] [place] [phone] PCP - General Internal Medicine 05/10/14 Antonietta Lim Jumpbasting Machine OperatorMembership Administrator 09/18/24 documented as of this encounter
--- OUTSIDE RECORDS SUMMARY | 2025-08-06 18:35 | XMS_ITS | Clinical Summary ---
Author Organization [employer] Address [address] [place] [address] [address] [place] [address] Care Team Providers Care Industrial Radiographer Name Role Phone Aaron Pisano MD Primary [...] MOUTH EVERY MORNING 28 tablet 5 5 1:59 PM EST 03/11/20 25 Active chlorhexidine (Peridex) [...] 25 Active D3 Super Strength 50 MCG (1999 [...] FOR MUSCLE SPASMS 60 tablet 1 5 1:59 PM EST 07/02/20 25 Active diphenhydrAMI NE (Laureen-Dryl) 25 MG tabletIndicat ions:Intracta ble vomiting with nausea TAKE 1 TABLET BY MOUTH THREE TIMES DAILY BEFORE FOOD NEEDED FOR NAUSEA AND VOMITING 90 tablet 1 5 1:59 PM EST 07/02/20 25 Active oxyCODONE (Roxicodone) 5 MG immediate release tabletIndicat ions:Chronic midline low back pain without sciatica Take 1 tablet (5 mg) by mouth every 12 (twelve) hours if needed for severe pain. 56 tablet 5 1:59 PM EST 07/30/20 25 Active oxyCODONE (Roxicodone) 5 MG immediate release tabletIndicat ions:Chronic midline low back pain without sciatica Take 1 tablet (5 mg) by mouth every 12 (twelve) hours if needed for severe pain. 56 tablet 5 5:43 PM EST 07/02/20 25 025 Discontinued(R eorder (will not trigger [...] Prednisone. She is under the care of Service Writer Advisor Dr. Reagan Alfaro last note [id number] He recommended to: Monitor given that There is no serological evidence of systemic vasculitis. If she has a recurrence within the next year I think it would warrant immunosuppressive treatment at that time. 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 She is under the care of Service Writer Advisor Dr Newberry. She is on Prednisone 2 [...] psychotherapist and a psychiatrist Dr. Gregory. At [facility] Pt is on: Hydroxyzine, Ambien, Assessment & Plan (08/23/2023 2:06 PM EST): Pt under the care of a psychotherapist and a psychiatrist. At [facility] Pt is no longer on Abilify nor Clonidine. She is now on Geodon Assessment & Plan (08/03/2022 9:22 AM EST): Pt under the care of a psychotherapist and a psychiatrist. At [facility] started on Abilify 7.5 mg [...] most recently seen by Dr Rodas at [facility] 06/15/2024 who recommended PRN follow up Assessment [...] (07/02/2025 9:21 AM EST): Previously referred to [facility] Comprehensive weight management program. Seen twice, they prompter to discuss with her mental health provider her eating habits before they would consider accepting her into the program. Pt would like to discuss GLP1s for weight loss next time she comes in Assessment & Plan (08/23/2023 1:51 PM EST): Previously referred to [facility] weight management program. Seen twice, they prompter to discuss with her mental health provider her eating habits before they would consider accepting her into the program Assessment & Plan (12/30/2022 3:28 PM EDT): Previously referred to [facility] weight management program Assessment & Plan (08/03/2022 1:48 PM EST): Referred to [facility] weight management program Genital herpes simplex [...] EST): Under the care of Dr James [employer] Carman , last seen 05/30/2025 No recent exacerbations Overactive bladder 01/20/2012 Polycystic ovarian syndrome 01/20/2012 Assessment & Plan (08/03/2022 9:18 AM EST): Seen in the past by an Plc Technician (Dr. Dozier) Under the care of Clare [...] Encounters Date Type Department Care Team Description 07/31/2025 Results Follow-Up [facility] [address] [place] [address] Aaron Pisano MD MR Lumbar Spine w/o Contrast 07/29/2025 2:00 PM EST Telemedicine [facility] [address] [place] [address] Altagracia Mancilla RN Chronic midline low back pain without sciatica 07/29/2025 Refill [facility] [address] [place] [address] Aaron Pisano MD Chronic midline low back pain without sciatica 07/29/2025 Refill [facility] [address] [place] [address] Aaron Pisano MD Chronic midline low back pain without sciatica 07/29/2025 Refill [facility] [address] [place] [address] Aaron Pisano MD Chronic midline low back pain without sciatica 07/29/2025 Refill [facility] [address] [place] [address] Altagracia Mancilla RN Chronic midline low back pain without sciatica 07/29/2025 Travel 07/26/2025 Patient Outreach [facility] [address] [place] [address] Aaron Pisano MD Care Coordination ([facility] outreach for SDOH PT-1 and food needs-referral completed /) 07/26/2025 Telephone [facility] [address] [place] [address] Aaron Pisano MD PT1 07/23/2025 Travel 07/09/2025 Orders Only GENERIC EXTERNAL DATA DEPARTMENT Provider, Generic External Data 07/02/2025 9:00 AM EST Telemedicine [facility] [address] [place] [address] Aaron Pisano MD Chronic midline low back pain without sciatica (Primary Dx); Mild intermittent asthma without complication; Severe obesity (CMS/HCC) (HCC); Migraine without aura and without status migrainosus, not intractable; Chronic bilateral low back pain without sciatica; Intractable vomiting with nausea 07/02/2025 Travel 07/01/2025 Refill [facility] [address] [place] [address] Aaron Pisano MD Chronic bilateral low back pain without sciatica; Chronic midline low back pain without sciatica; Intractable vomiting with nausea 06/26/2025 Travel 06/19/2025 Refill [facility] [address] [place] [address] Aaron Pisano MD Seasonal allergies 06/11/2025 Patient Outreach [facility] [address] [place] [address] Aaron Pisano MD Care Coordination ([facility] outreach for SDOH PT-1 and food needs-referral completed /) 06/11/2025 Telephone [facility] [address] [place] [address] Aaron Pisano MD PT-1 06/04/2025 Refill [facility] [address] [place] [address] Aaron Pisano MD Cough in adult patient 06/03/2025 Refill [facility] [address] [facility] [place] [address] Aaron Pisano MD Chronic midline low back pain without sciatica 06/03/2025 Telephone [facility] [address] [facility] [place] [address] Aaron Pisano MD Med Refill 06/03/2025 Refill [facility] [address] [place] [address] Aaron Pisano MD Chronic midline low back pain without sciatica 05/31/2025 11:30 AM EDT Clinical Support [facility] [address] [place] [address] Altagracia Mancilla RN Chronic midline low back pain without sciatica (Primary Dx) 05/31/2025 Travel 05/24/2025 Refill [facility] [address] [place] [address] Miki Sarkar DDS 05/24/2025 Travel 05/24/2025 Patient Outreach [facility] [address] [place] [address] Aaron Pisano MD Care Coordination ([facility] outreach for SDOH PT-1 and food needs-referral completed /) 05/24/2025 Telephone [facility] [address] [facility] [place] [address] Aaron Pisano MD Pt-1 05/15/2025 Patient Outreach [facility] [address] [place] [address] Aaron Pisano MD Care Coordination ([facility] outreach for SDOH PT-1 and food needs-referral completed /) 05/15/2025 Telephone [facility] [address] [place] [address] Aaron Pisano MD PT-1 05/09/2025 Refill [facility] [address] [place] [address] Aaron Pisano MD Seasonal allergies 05/08/2025 3:00 PM EDT Office Visit [facility] [address] [place] [address] Rodo Bocanegra MD Fatigue, unspecified type (Primary Dx); Fever and chills 05/08/2025 11:00 AM EDT Office Visit [facility] [address] [place] [address] Miki Sarkar DDS Excessive attrition of teeth (Primary Dx) 05/08/2025 Orders Only GENERIC EXTERNAL DATA DEPARTMENT Provider, Generic External Data 05/08/2025 Travel from Last 3 Months Immunizations Immunization [...] 12:45 PM EST Office Visit [facility] [address] [place] [address] Zhanna Hernandez 10/03/2025 10:00 AM EST Office Visit [facility] [address] [place] [address] Aaron Pisano MD [address] [place] [address] 10/25/2025 11:00 AM EDT Clinical Support [facility] [address] [place] [address] Altagracia Mancilla, GRACIELA [address] [place] [address] Health Maintenance Due Date Last Done Comments [...] Procedure Name Priority Date/Time Associated Diagnosis Comments MR LUMBAR SPINE WO CONTRAST Routine 07/25/2025 7:45 PM EST Chronic midline low back pain without sciatica POCT CARBON MONOXIDE Routine 07/09/2025 1:07 PM [...] SURF, ANTERIOR Routine 05/08/2025 11:00 AM EDT BI MAMMOGRAM SCREENING TOMOSYNTHESIS BILATERAL Routine [...] Recently Relevant to Health Maintenance Results * MR Lumbar Spine w/o Contrast (07/25/2025 7:45 PM EST) Anatomical Region Laterality Modality Spine, L-spine Magnetic Resonan ce 07/25/2025 7:45 PM EST Narrative 07/26/2025 6:17 AM EST [place] [address] Magnetic Resonance Report Signed Patient: Zee Villanueva MR#: [id number] : 1975 Acct:[id number] Age/Sex: 49 / F ADM Date: 07/25/25 Loc: HO.MRI Attending Dr: Aaron Carcamo MD Ordering Physician: Aaron Carcamo MD Date of Service: 07/25/25 Procedure(s): MR lumbar spine wo con Accession Number(s): [id number] cc: Aaron Carcamo MD Reason for Exam: severe chornic low back pain EXAMINATION: MR LUMBAR SPINE WITHOUT CONTRAST CLINICAL INFORMATION: Severe chronic low back pain. COMPARISON: December 11, 2021. TECHNIQUE: MRI of the lumbar spine was obtained using routine sequences without contrast. FINDINGS: Last rib-bearing vertebra labeled T12. No bone marrow STIR signal abnormality. Multilevel disc desiccation pronounced at L3-4. Normal alignment. 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 There is an intrinsic hyperintense T1, intradural/extramedullary, midline, cylindrical shaped, signal abnormality extending from conus medullaris L2 to the dorsal S3 level. Conus medullaris ends at pedicle of L2. T12-L1: No disc herniation. No neuroforamina stenosis. L1-2: No disc herniation. No neuroforamina stenosis. L2-3: Broad-based disc bulging. No central spinal canal or neuroforamina stenosis. L3-4: Broad-based disc bulging. Facet joint hypertrophy. Reduced AP diameter of the thecal sac and neuroforamina. L4-5: Broad-based disc bulging. Facet joint hypertrophy. Reduced AP diameter of thecal sac and neuroforamina. L5-S1: Broad-based disc bulging. Facet joint hypertrophy. Reduced AP diameter of the thecal sac and bilateral neuroforamina narrowing. Prominent epidural fat in the sacrum. No prevertebral compartment hematoma, mass or fluid collection. Liver is enlarged. 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 Multilevel spondylosis L3-4 to L5-S1. Hepatomegaly. Electronically signed by: Nathan Hand MD 07/26/2025 06:15 AM EST Dictated By: Nathan Sharma MD Signed By: <Electronically signed by Nathan Oakley MD in OV> 07/26/25614 DD/ 44 TD/TT: 07/25/252014 Liability Claims Adjuster: Procedure Note Donotuseinterpreter, Image - 07/26/2025 [place] [address] Magnetic Resonance Report Signed Patient: Zee Villanueva [facility]#: [id number] : 1975Acct:[id number] Age/Sex: 49 / FADM Date: 07/25/25 Loc: HO.MRI Attending Dr: Aaron Carcamo MD Ordering Physician: Aaron Carcamo MD Date of Service: 07/25/25 Procedure(s): MR lumbar spine wo con Accession Number(s): [id number] cc: Aaron Carcamo MD Reason for Exam: severe chornic low back pain EXAMINATION: MR LUMBAR SPINE WITHOUT CONTRAST CLINICAL INFORMATION: Severe chronic low back pain. COMPARISON: December 11, 2021. TECHNIQUE: MRI of the lumbar spine was obtained using routine sequences without contrast. FINDINGS: Last rib-bearing vertebra labeled T12. No bone marrow STIR signal abnormality. Multilevel disc desiccation pronounced at L3-4. Normal alignment. 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 There is an intrinsic hyperintense T1, intradural/extramedullary, midline, cylindrical shaped, signal abnormality extending from conus medullaris L2 to the dorsal S3 level. Conus medullaris ends at pedicle of L2. T12-L1: No disc herniation. No neuroforamina stenosis. L1-2: No disc herniation. No neuroforamina stenosis. L2-3: Broad-based disc bulging. No central spinal canal or neuroforamina stenosis. L3-4: Broad-based disc bulging. Facet joint hypertrophy. Reduced AP diameter of the thecal sac and neuroforamina. L4-5: Broad-based disc bulging. Facet joint hypertrophy. Reduced AP diameter of thecal sac and neuroforamina. L5-S1: Broad-based disc bulging. Facet joint hypertrophy. Reduced AP diameter of the thecal sac and bilateral neuroforamina narrowing. Prominent epidural fat in the sacrum. No prevertebral compartment hematoma, mass or fluid collection. Liver is enlarged. 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 Multilevel spondylosis L3-4 to L5-S1. Hepatomegaly. Electronically signed by: Nathan Hand MD 07/26/2025 06:15 AM EST Dictated By: Nathan Sharma MD Signed By: <Electronically signed by Nathan Oakley MDin OV> 07/26/25614 DD/ 44 TD/TT: 07/25/252014 Liability Claims Adjuster: us Aaron Harris MD IMG MRI PROCEDURES Fi nal Result * POCT Carbon Monoxide (07/09/2025 1:07 PM EST) Carbon Monoxide POC 2.5 % [facility] Comment:CARBON MONOXIDE REFE RENCE RANGE: [...] DEVICE ORDERABLES Final Result Performing Organization Address [facility] Co de Phone Number [facility] [address] [place] [phone] * TSH with Reflex to Free T4 (07/09/2025 1:07 PM EST) Only the most recent of3 resultswithin the time period is included. TSH reflex Free T4 4.00 0.32 - 4.0 uIU/mL [facility] 07/09/2025 1:07 PM EST 07/09/2025 1:07 PM EST us Generic External Data Provider LAB BLOOD ORDERAB LES Final Result Performing Organization Address City/[facility]/ZIP Co de Phone Number [facility] [address] [place] [address] [phone] * Referral to Infectious Disease (06/11/2025) [...] - 05/31/2025 11:41 AM EDT .UTOX cup Lot#[id number] Exp. 05/14/26 Internal Pass Control Aaron Harris MD POINT OF CARE TEST EN TER/EDIT ORDERABLES Final Result * Vitamin D, 25-Hydroxy, Total, Immunoassay (05/30/2025 1:22 PM EDT) Only the most recent of2 resultswithin the time period is included. Vitamin D 25-OH Total 49.9 >30 ng/mL [facility] Comment: Health Based Reference Values*< 20 ng/mL Timhbvxyx86-84 ng/mL Insufficient> 30 ng/mL Sufficient*Cielo TINEO. N [...] MD LAB BLOOD ORDERABLES Final Resul t [facility] [address] [place] [phone] * ANCA Vasculitides (05/08/2025 12:41 PM EDT) Myeloperoxidase Antibody <1.0 [facility] Comment:Value Interpretation ----- <1.0 No Antibody Detected > or = 1.0 Antibody DetectedAutoantibodies to myeloperoxidase (MPO) are commonlyassociated with the following small-vesselvasculitides: microscopic polyangiitis,polyarteritis nodosa, Churg-Chen syndrome,necrotizing and crescentic glomerulonephritis andoccasionally granulomatosis with polyangiitis(GPA, Marissa's). The perinuclear IFA pattern,(p-ANCA) is based largely on autoantibody tomyeloperoxidase which serves as the primary antigen.These autoantibodies are present in active disease. Proteinase-3 Antibody <1.0 [facility] Comment:Value Interpretation ----- <1.0 No Antibody Detected > or = 1.0 Antibody DetectedAutoantibodies to proteinase-3 (OK-3) are accepted ascharacteristic for granulomatosis with polyangiitis(GPA, Marissa's), and are detectable in 95% of thehistologically proven cases. The cytoplasmic IFApattern, (c-ANCA), is based largely on autoantibody toPR-3 which serves as the primary antigen.These autoantibodies are present in active disease.THIS TEST WAS PERFORMED AT:[facility] [place] [id number] REDMOND MD 05/08/2025 12:4 1 PM EDT 05/08/2025 4:00 PM EDT us Generic External Data Provider LAB BLOOD ORDERAB LES Final Result [facility] [address] [place] [phone] * (ABNORMAL) CBC auto differential (05/08/2025 12:41 PM EDT) Only the most recent of3 resultswithin the time period is included. White Blood Count 11.7(H) 4.8 - 10.8 X10*3/uL [facility] Red Blood Count 4.88 4.20 - 5.50 X10*6/uL [facility] Hemoglobin 13.4 12.0 - 16.0 g/dl [facility] Hematocrit 40.0 37.0 - 47.0 % [facility] Mean Corpuscular Volume 82.0 80.0 - 98.0 fL [facility] Mean Corpuscular Hemoglobin 27.5 27.0 - 33.0 pg [facility] Mean Corpuscular HGB Conc 33.5 31.0 - 35.0 g/dl [facility] Red Cell Distribution Width 15.2 11.0 - 16.0 % [facility] Platelet Count 338 160 - 400 X10*3/uL [facility] Mean Platelet Volume 10.1 9.4 - 12.3 fL [facility] Neutrophils Percent Auto 67.7 45 - 73 % [facility] Imm Gran Pct Auto 0.5(H) 0.0 - 0.4 % [facility] Lymphocytes Percent Auto 20.4 20 - 40 % [facility] Monocytes Percent Auto 6.9 2 - 11 % [facility] Eosinophils Percent Auto 3.2 0 - 4 % [facility] Basophils Percent Auto 1.3 0 - 2 % [facility] NRBC Pct Auto 0.0 0.0 - 0.2 /100WBC [facility] Neutrophils Absolute Auto 7.9 2.0 - 8.3 x10*3/uL [facility] Imm Gran Abs Auto 0.06(H) 0.00 - 0.03 X10*3/uL [facility] Lymphocytes Absolute Auto 2.4 1.2 - 4.9 X10*3/uL [facility] Monocytes Absolute Auto 0.8 0.1 - 1.2 X10*3/uL [facility] Eosinophils Absolute Auto 0.4 0.0 - 0.4 X10*3/uL [facility] Basophils Absolute Auto 0.2 0.0 - 0.2 X10*3/uL [facility] NRBC Abs Auto 0.000 0.0 - 0.012 X10*3/uL [facility] 05/08/2025 12:4 1 PM EDT 05/08/2025 4:00 PM EDT us Generic External Data Provider LAB BLOOD ORDERAB LES Final Result [facility] [address] [place] [phone] * Cryoglobulin (% Cryocrit), Serum (05/08/2025 12:41 PM EDT) Cryoglobulin, Ql, Serum, Rflx Negative Negative [facility] Comment:The Cryocrit is prim arily intended for following apatient with previously defined and quantitatedcryoglobulins. The cryocrit may consist ofcryoglobulins, fibrins, complement, or mixtures ofthese.THIS TEST WAS PERFORMED AT:[employer]/[facility] [place] [phone] CARRANZA MD,PHD % Cryocrit [facility] 05/08/2025 12:4 1 PM EDT 05/08/2025 4:00 PM EDT us Generic External Data Provider LAB BLOOD ORDERAB LES Final Result Performing Organization Address City/[facility]/ZIP Co de Phone Number [facility] [address] [place] [phone] * (ABNORMAL) Sed Rate by Modified Westergren (05/08/2025 12:41 PM EDT) Erythrocyte Sedimentation Rate 38(H) 0 - 20 MM/HR [facility] Comment:Patients with polycy themia and many hemoglobin abnormalitiesmay have depressed sed rates whereas patients with anemiamay have elevated sed rates. 05/08/2025 12:4 1 PM EDT 05/08/2025 4:00 PM EDT us Generic External Data Provider LAB BLOOD ORDERAB LES Final Result Performing Organization Address [facility] Co de Phone Number [facility] [address] [place] [phone] * (ABNORMAL) C-reactive Protein (05/08/2025 12:41 PM EDT) Only the most recent of2 resultswithin the time period is included. C Reactive Protein 2.00(H) < or = 0.50 mg/dL [facility] 05/08/2025 12:4 1 PM EDT 05/08/2025 4:00 PM EDT us Generic External Data Provider LAB BLOOD ORDERAB LES Final Result Performing Organization Address [facility]/ZIP Co de Phone Number [facility] [address] [place] [phone] * Comprehensive Metabolic Panel (05/08/2025 12:41 PM EDT) Only the most recent of3 resultswithin the time period is included. Sodium 142 135 - 145 mmol/L [facility] Potassium 3.3 3.3 - 5.1 mmol/L [facility] Chloride 103 96 - 108 mmol/L [facility] Carbon Dioxide 29 22 - 29 mmol/L [facility] Anion Gap 13 12 - 20 [facility] Urea Nitrogen (BUN) 16 9 - 16 mg/dL [facility] Creatinine, Serum 0.98 0.5 - 1.4 mg/dL [facility] Estimated Glomerular Filt Rate >60 [facility] Comment:Chronic Kidney Disea se: Estimated GFR < 60 mL/min/1.98y8Hfrtxj Kidney Disease: Estimated GFR < 15 mL/min/1.73m2 Glucose 98 60 - 115 mg/dL [facility] Calcium 9.7 8.4 - 10.2 mg/dL [facility] Bilirubin, Total 0.4 0.0 - 1.0 mg/dL [facility] Aspartate Amino Transferase 22 5 - 31 U/L [facility] Alanine Aminotransferase 18 0 - 31 U/L [facility] Total Protein 7.8 6.5 - 8.0 g/dL [facility] Albumin Level 4.5 3.5 - 5.0 g/dL [facility] Alkaline Phosphatase 101 39 - 117 U/L [facility] 05/08/2025 12:4 1 PM EDT 05/08/2025 4:00 PM EDT us Generic External Data Provider LAB BLOOD ORDERAB LES Final Result [facility] [address] [place] [phone] * BI Mammogram Screening Tomosynthesis Bilateral (02/20/2025 2:30 PM EDT) Anatomical Region Laterality Modality Breast Bilateral Mammography 02/20/2025 2:30 PM EDT Narrative 03/01/2025 8:13 PM EDT [facility] [address] [place] [address] [place] [address] Mammography Report Signed Patient: Zee Villanueva MR#: [id number] : 1975 Acct:[id number] Age/Sex: 49 / F ADM Date: 02/20/25 Loc: HO.MAMMO Attending Dr: Aaron Carcamo MD Ordering Physician: Aaron Carcamo MD Resu lts: 1Negative Date of Service: 02/20/25 Follow Up: 1 Year From Orig inal Mammogram Procedure(s): MM tomosynthesis screening BI Accession Number(s): [id number] cc: Aaron Carcamo MD EXAMINATION: MM SCREENING [...] OV> 03/01/252009 DD/ 1430 TD/TT: 02/20/25 1510 Liability Claims Adjuster: Procedure Note Donotuseinterpreter, Image - 03/01/2025 [facility] [address] [place], [place] [address] Mammography Report Signed Patient: Zee Villanueva [facility]#: [id number] : 1975Acct:[id number] Age/Sex: 49 / FADM Date: 02/20/25 Loc: HO.MAMMO Attending Dr: Aaron Carcamo MD Ordering Physician: Aaron Carcamo MDResu lts: 1Negative Date of Service: 02/20/25Follow Up: 1 Year From Orig inal Mammogram Procedure(s): MM tomosynthesis screening BI Accession Number(s): [id number] cc: Aaron Carcamo MD EXAMINATION: MM SCREENING [...] OV> 03/01/252009 DD/ 1430 TD/TT: 02/20/25 1510 Liability Claims Adjuster: us Aaron Harris MD IMG BI PROCEDURES Satya lauren Result - Final * Hepatitis Panel, General (12/28/2024 2:24 PM EDT) Hepatitis A IgM Nonreactive Nonreactive [facility] Comment:IgM antibodies to LUTHER V not detected; does not exclude earlyacute or recovered HAV infection. ~Hepatitis B Surface Antibody NONREACTIVE Nonreactive [facility] Comment:Nonreactive: < 8.00 mIU/mL Hepatitis B Core Antibody Nonreactive Nonreactive [facility] Hepatitis C Antibody Nonreactive Nonreactive [facility] Comment:Antibodies to HCV no t detected; does not exclude early acuteHCV infection. Hepatitis B Surface Ag Negative Negative [facility] 12/28/2024 2:24 PM EDT 12/28/2024 2:26 PM EDT us Generic External Data Provider LAB BLOOD ORDERAB LES Final Result Performing Organization Address City/State/[facility] Co de Phone Number [facility] [address] [place] [phone] * (ABNORMAL) Lipid Panel, Standard (12/28/2024 2:24 PM EDT) Triglycerides 138 <150 mg/dL [facility] Comment:Desirable Triglyceri de: less than 150 mg/dLBorderline High Triglyceride 150-199 mg/dLHigh Triglyceride: 200-499 mg/dLVery High Triglyceride: greater than or equal to 5OO mg/dL Cholesterol 199 <200 mg/dL [facility] Comment:Desirable Cholestero l: less than 200 mg/dLBorderline High Cholesterol: 200-239 mg/dLHigh Cholesterol: greater than 239 mg/dL LDL Cholesterol Calculated 121(H) <100 mg/dL [facility] Comment:Desirable LDL: less than 100 mg/dLNear Optimal/Above Optimal LDL: 110- 129 mg/dLBorderline High LDL: 130-159 mg/dLHigh LDL: 160-189 mg/dLVery High LDL: greater than or equal to 190 mg/dL HDL Cholesterol 51 >40 mg/dL [facility] Comment:Desirable HDL: great er than 40 mg/dL Note: This HDL assay may give artificially low results in patients with liver disease. Blood Venous blood specimen / Unknown 12/28/2024 2:24 PM EDT 12/28/2024 2:26 PM EDT Aaron Harris MD LAB BLOOD ORDERABLES Final Result Performing Organization Address [facility] Co de Phone Number [facility] [address] [place] [phone] * HIV AB/AG (02/26/2020 1:03 PM EDT) Pathologist [facility] HIV AG/AB NONREACTIVE NR FOUNDATI ON [...] of detection of this assay. The [employer] Assistant HIV Ag/Ab Combo assay result and supplemental assay results should be interpreted in conjunction with the patient's clinical presentation, history and other laboratory results. If the results are inconsistent with clinical evidence, additional testing is suggested to confirm the result. 02/26/2020 1:03 PM EDT Aaron Harris MD HISTORICAL/NON ORDERA BLE LABS Final Result Performing Organization Address City/[facility]/ZIP Co de Phone Number [facility] [address] from Last 3 Months or Most Recently Relevant to Health Maintenance Insurance [address] [place] [address] [place] [facility] MEDICAID STAND ADULT [address] [place] [address] GENERIC TPL Care Teams Industrial Radiographer Relationship Specialty Start Date End Date Aaron Pisano MD [address] [place] [address] PCP - General Internal Medicine 05/10/[address] SuperintendentBladder Tier 09/18/24
--- OUTSIDE RECORDS SUMMARY | 2025-08-06 18:35 | XMS_ITS | Encounter Summary ---
Author Organization [employer] Address 75 [facility] 7 [place] [address] Care Team Providers Care Audiovisual Aids Technician Name Role Phone Aaron Pisano MD Primary Care Provide r Reason for Visit * Reason Comments Med Refill Encounter Details Date Type Department Care Team ([facility] st Contact Info) Description 10/06/2023 Refill [facility] [address] [place] [address] Aaron Pisano MD 230 [place] [address] Chronic midline low back pain without sciatica [...] Description 08/29/2025 12:45 PM EST Office Visit [facility] [address] [place] [address] Zhanna Hernandez 10/03/2025 10:00 AM EST Office Visit [facility] [address] [place] [address] Aaron Pisano MD [address] [place] [address] 10/25/2025 11:00 AM EDT Clinical Support [facility] [address] [place] [address] Altagracia Mancilla RN [address] [place] [address] documented as of this encounter Goals Goal [...] documented as of this encounter Care Teams Audiovisual Aids Technician Relationship Specialty Start Date End Date Aaron Pisano MD [address] [place] [address], [place] [address] PCP - General Internal Medicine 05/10/14 Antonietta Lim Atomic SpectroscopistBlood Tester 09/18/24 documented as of this encounter
--- OUTSIDE RECORDS SUMMARY | 2025-08-06 18:35 | XMS_ITS | Encounter Summary ---
Author Organization [employer] Address 75 [facility] 7 [place] [address] Care Team Providers Care Stage Electrician Name Role Phone Aaron Pisano MD Primary Care Provide r Reason for Visit * Reason Onset Date Comments Med Refill 06/03/2025 Encounter Details Date Type Department Care Team ([facility] st Contact Info) Description 06/03/2025 Refill [facility] 230 [place] [address] Aaron Pisano MD 230 [place] [address] Chronic midline low back pain without sciatica [...] 12:45 PM EST Office Visit [facility] ADULT DENTAL [address] [place] [address] Zhanna Hernandez 10/03/2025 10:00 AM EST Office Visit [facility] [address] [place] [address] Aaron Pisano MD [address] [place] [address] 10/25/2025 11:00 AM EDT Clinical Support [facility] [address] [place] [address] Altagracia Mancilla RN [address] [place] [address] documented as of this encounter Goals Goal [...] documented as of this encounter Care Teams Stage Electrician Relationship Specialty Start Date End Date Aaron Pisano MD [address] [place] [address] PCP - General Internal Medicine 05/10/14 Antonietta Lim HydroblasterWaiter/Waitress Second Class 09/18/24 documented as of this encounter
--- OUTSIDE RECORDS SUMMARY | 2025-08-06 18:36 | XMS_ITS | Encounter Summary ---
Author Organization [employer] Address 75 [facility] 7 [place] [address] Care Team Providers Care Area Director Of Home Health Sales Name Role Phone Aaron Pisano MD Primary Care Provide r Reason for Visit * Reason Onset Date Comments Pt-1 05/24/2025 Encounter Details Date Type Department Care Team ([facility] Contact Info) Description 05/24/2025 Telephone [facility] 230 [place] [address] Aaron Pisano MD 230 [place] [address] Pt-1 Social History Tobacco Use Types Packs/Day [...] Y/N: Yes Provider name or facility name: [facility] Facility Address: [address] [place] [address] Escort needed: Y/N: No Do you have a wheelchair: Y/N: No If yes- Manual or electric: N/A Visits: Once a month documented in this encounter Plan of Treatment Upcoming Encounters Date Type Department Care Team (Late st Contact Info) Description 08/29/2025 12:45 PM EST Office Visit [facility]ULT [facility] [address] [place] [address] Zhanna Hernandez 10/03/2025 10:00 AM EST Office Visit [facility] [address] [place] [address] Aaron Pisano MD 230 [place] [address] 10/25/2025 11:00 AM EDT Clinical Support [facility] 230 [place] [address] Altagracia Mancilla, RN [address] [place] [address] documented as of this encounter Goals Goal [...] documented as of this encounter Care Teams Area Director Of Home Health Sales Relationship Specialty Start Date End Date Aaron Pisano MD 230 [place] [address] PCP - General Internal Medicine 05/10/14 Antonietta Lim Hand Mold MakerSupervisor Cell Maintenance 09/18/24 documented as of this encounter
--- OUTSIDE RECORDS SUMMARY | 2025-08-06 18:36 | XMS_ITS | Encounter Summary ---
Author Organization [employer] Address 75 [facility] 7 [place] [address] Care Team Providers Care Knitted Goods Shaper Name Role Phone Aaron Pisano MD Primary Care Provide r Reason for Visit * Reason Onset Date Comments pt1 01/07/2025 Encounter Details Date Type Department Care Team ([facility] Contact Info) Description 01/07/2025 Telephone [facility] 230 [place] [address] Aaron Pisano MD 230 [place] [address] pt1 Social History Tobacco Use Types Packs/Day [...] for address [address] [facility] [address] documented in this encounter Plan of Treatment Upcoming Encounters Date Type Department Care Team (Late st Contact Info) Description 08/29/2025 12:45 PM EST Office Visit [facility] ADULT D[facility] [address] [place] [address] Zhanna Hernandez 10/03/2025 10:00 AM EST Office Visit [facility] [address] [place] [address] Aaron Pisano MD [address] [place] [address] 10/25/2025 11:00 AM EDT Clinical Support [facility] [address] [place] [address] Altagracia Mancilla RN 505 [place] [address] documented as of this encounter Goals Goal [...] documented as of this encounter Care Teams Knitted Goods Shaper Relationship Specialty Start Date End Date Aaron Pisano MD 230 [place] [address] PCP - General Internal Medicine 05/10/14 Antonietta Lim Loom Fixer SupervisorResidential Program Worker 09/18/24 documented as of this encounter
--- OUTSIDE RECORDS SUMMARY | 2025-08-06 18:36 | XMS_ITS | Encounter Summary ---
Author Organization [employer] Address [address] [place] [address] 7 [place] [address] Care Team Providers Care Dumper Mold Cleaner Name Role Phone Aaron Psiano MD Primary Care Provide r Reason for Visit * Reason Comments Med Refill Encounter Details Date Type Department Care Team ([facility] st Contact Info) Description 07/01/[address] [facility] 230 [place] [address] Aaron Pisano MD 230 [place] [address] Chronic bilateral low back pain without sciatica; [...] Description 08/29/2025 12:45 PM EST Office Visit [facility] [address] [place] [address] Zhanna Hernandez 10/03/2025 10:00 AM EST Office Visit [facility] [address] [place] [address] Aaron Pisano MD [address] [place] [address] 10/25/2025 11:00 AM EDT Clinical Support [facility] [address] [place] [address] Altagracia Mancilla RN [address] [place] [address] documented as of this encounter Goals Goal Patient Goal Type Associated Problems Recent Progress Patient-Stated? Author Blood Pressure < 140/90 Blood Pressure 130/83( 025 3:21 PM EDT) Giovanna Edwards, oShamD documented as of this encounter Visit Diagnoses Diagnosis Chronic bilateral low back pain without sciatica Chronic midline low back pain without sciatica Intractable vomiting with nausea documented in this encounter Additional Health Concerns Assessment Noted Time PHQ-9 Depression Total Score: 2 06/05/20 24 8:38 AM EDT documented as of this encounter Care Teams Dumper Mold Cleaner Relationship Specialty Start Date End Date Aaron Pisano MD [address] [place] [address] PCP - General Internal Medicine 05/10/14 Antonietta Lim Display MechanicClinical Trial Coordinator 09/18/24 documented as of this encounter
--- OUTSIDE RECORDS SUMMARY | 2025-08-06 18:36 | XMS_ITS | Encounter Summary ---
Author Organization [employer] Address 75 [facility] 7t [place] [address] Care Team Providers Care Balance Weigher Name Role Phone Aaron Pisano MD Primary Care Provide r Reason for Visit * Reason Comments Med Refill Encounter Details Date Type Department Care Team ([facility] st Contact Info) Description 04/05/2025 Refill [facility] 230 [place] [address] Aaron Pisano MD 230 [place] [address] Chronic midline low back pain without sciatica [...] the past 12 months, has t he [employer] Services, gas, oil or water company threatened to [...] Office Visit [facility] ADULT D[facility] [address] [place] [address] Zhanna Hernandez 10/03/2025 10:00 AM EST Office Visit [facility] [address] [place] [address] Aaron Pisano MD [address] [place] [address] 10/25/2025 11:00 AM EDT Clinical Support [facility] [address] [place] [address] Altagracia Mancilla RN 505 [place] [address] documented as of this encounter Goals Goal [...] documented as of this encounter Care Teams Balance Weigher Relationship Specialty Start Date End Date Aaron Pisano MD [address] [place] [address] PCP - General Internal Medicine 05/10/14 Antonietta Lim Community Coordinator For High SchoolOperator Receptionist 09/18/24 documented as of this encounter
--- OUTSIDE RECORDS SUMMARY | 2025-08-06 18:36 | XMS_ITS | Encounter Summary ---
Author Organization [employer] Address 75 [facility] 7 [place] [address] Care Team Providers Care Mathematics Technician Name Role Phone Aaron Pisano MD Primary Care Provide r Reason for Visit * Reason Onset Date Comments Med Refill 01/07/2025 Encounter Details Date Type Department Care Team (Late st Contact Info) Description 01/07/2025 Refill [facility] 230 [place] [address] Fam Hartman MD [address] [place] [address] Chronic midline low back pain without sciatica [...] Description 08/29/2025 12:45 PM EST Office Visit [facility] ADULT D[facility] [address] [place] [address] Zhanna Hernandez 10/03/2025 10:00 AM EST Office Visit [facility] [address] [place] [address] Aaron Pisano MD [address] [place] [address] 10/25/2025 11:00 AM EDT Clinical Support [facility] [address] [place] [address] Altagracia Mancilla RN 505 [place] [address] documented as of this encounter Goals Goal [...] documented as of this encounter Care Teams Mathematics Technician Relationship Specialty Start Date End Date Aaron Pisano MD [address] [place] [address] PCP - General Internal Medicine 05/10/14 Antonietta Lim Rhinestone SetterPress Officer 09/18/24 documented as of this encounter
--- OUTSIDE RECORDS SUMMARY | 2025-08-06 18:36 | XMS_ITS | Encounter Summary ---
Author Organization [employer] Address 75 [facility] 7t [place] [address] Care Team Providers Care Staff Anesthesiologist Name Role Phone Aaron Pisano MD Primary Care Provide r Encounter Details Date Type Department Care Team ([facility] Contact Info) Description 04/05/2025 Telephone [facility] 230 [place] [address] Aaron Pisano MD 230 [place], [place] [phone] Social History Tobacco Use Types Packs/Day Years [...] Description 08/29/2025 12:45 PM EST Office Visit [facility] ADULT DENTAL [address] [place] [address] Zhanna Hernandez 10/03/2025 10:00 AM EST Office Visit [facility] [address] [place] [address] Aaron Pisano MD [address] [place] [address] 10/25/2025 11:00 AM EDT Clinical Support [facility] [address] [place] [address] Altagracia Mancilla RN [address] [place] [address] documented as of this encounter Goals Goal [...] documented as of this encounter Care Teams Staff Anesthesiologist Relationship Specialty Start Date End Date Aaron Pisano MD 230 [place] [address] PCP - General Internal Medicine 05/10/14 Antonietta Lim J2Ee ConsultantEngineer Steam 09/18/24 documented as of this encounter
--- OUTSIDE RECORDS SUMMARY | 2025-08-06 18:36 | XMS_ITS | Encounter Summary ---
Author Organization [employer] Address 75 [facility] 7 [place] [address] Care Team Providers Care Ribbon Hanking Machine Operator Name Role Phone Aaron Pisano MD Primary Care Provide r Reason for Visit * Reason Onset Date Comments PT-1 05/15/2025 Encounter Details Date Type Department Care Team ([facility] Contact Info) Description 05/15/[address] [facility] 230 [place] [address] Aaron Pisano MD 230 [place] [address] PT-1 Social History Tobacco Use Types Packs/Day [...] Y/N: Yes Provider name or facility name: [facility] Infectious Disease Facility Address: [address] [place] [address] Escort needed: Y/N: No Do you have a wheelchair: Y/N: No If yes- Manual or electric: N/A Visits: Twice a month documented in this encounter Plan of Treatment Upcoming Encounters Date Type Department Care Team (Late st Contact Info) Description 08/29/2025 12:45 PM EST Office Visit [facility] [address] [place] [address] Zhanna Hernandez 10/03/2025 10:00 AM EST Office Visit [facility] [address] [place] [address] Aaron Pisano MD [address] [place] [address] 10/25/2025 11:00 AM EDT Clinical Support [facility] [address] [place] [address] Altagracia Mancilla, RN [address] [place] [address] documented as of this encounter Goals Goal [...] documented as of this encounter Care Teams Ribbon Hanking Machine Operator Relationship Specialty Start Date End Date Aaron Pisano MD [address] [place] [address] PCP - General Internal Medicine 05/10/14 Antonietta Lim Oven RoasterBlockman 09/18/24 documented as of this encounter
--- OUTSIDE RECORDS SUMMARY | 2025-08-06 18:36 | XMS_ITS | Encounter Summary ---
Author Organization [employer] Address 75 [facility] 7 [place] [address] Care Team Providers Care Auto Body Builder Apprentice Name Role Phone Aaron Pisano MD Primary Care Provide r Reason for Visit * Reason Onset Date Comments Med Refill 01/04/2025 Encounter Details Date Type Department Care Team (Late st Contact Info) Description 01/04/2025 Refill [facility] 230 [place] [address] Fam Hartman MD [address] [place] [address] Chronic midline low back pain without sciatica [...] 12:45 PM EST Office Visit [facility] ADULT D[facility] [address] [place] [address] Zhanna Hernandez 10/03/2025 10:00 AM EST Office Visit [facility] [address] [place] [address] Aaron Pisano MD [address] [place] [address] 10/25/2025 11:00 AM EDT Clinical Support [facility] [address] [place] [address] Altagracia Mancilla RN [address] [place] [address] documented as of this encounter Goals Goal [...] documented as of this encounter Care Teams Auto Body Builder Apprentice Relationship Specialty Start Date End Date Aaron Pisano MD [address] [place] [address] PCP - General Internal Medicine 05/10/14 Antonietta Lim Sales Analytics ManagerCyber Defense Analyst 09/18/24 documented as of this encounter
--- OUTSIDE RECORDS SUMMARY | 2025-08-06 18:36 | XMS_ITS | Encounter Summary ---
Author Organization [employer] Address 75 [facility] 7 [place] [address] Care Team Providers Care Detective Bureau Chief Name Role Phone Aaron Pisano MD Primary Care Provide r Reason for Visit * Reason Onset Date Comments Med Refill 05/24/2025 Encounter Details Date Type Department Care Team ([facility] st Contact Info) Description 05/24/2025 Refill [facility] ADULT [facility] 230 [place] [address] Miki Sarkar, DDS [address] [place] [address] Social History Tobacco Use Types Packs/Day Years [...] 12:45 PM EST Office Visit [facility] ADULT DENTAL [address] [place] [address] Zhanna Hernandez 10/03/2025 10:00 AM EST Office Visit [facility] MEDICINE [address] [place] [address] Aaron Pisano MD [address] [place] [address] 10/25/2025 11:00 AM EDT Clinical Support [facility] [address] [place] [address] Altagracia Mancilla, GRACIELA [address] [place] [address] documented as of this encounter Goals Goal [...] documented as of this encounter Care Teams Detective Bureau Chief Relationship Specialty Start Date End Date Aaron Pisano MD 230 [place] [address] PCP - General Internal Medicine 05/10/14 Antonietta Lim Supervisor Throwing DepartmentManager Investment 09/18/24 documented as of this encounter
--- OUTSIDE RECORDS SUMMARY | 2025-08-06 18:36 | XMS_ITS | Encounter Summary ---
Author Organization [employer] Address 75 [facility] 7 [place] [address] Care Team Providers Care Painter And Body Mechanic Apprentice Name Role Phone Aaron Pisano MD Primary Care Provide r Reason for Visit * Reason Onset Date Comments Med Refill 05/01/2025 Encounter Details Date Type Department Care Team ([facility] st Contact Info) Description 05/01/2025 Refill [facility] [address] [place] [address] Aaron Pisano MD 230 [place] [address] Social History Tobacco Use Types Packs/Day Years [...] the past 12 months, has t he Time W[employer], gas, oil or water company threatened to [...] Description 08/29/2025 12:45 PM EST Office Visit [facility] ADULT DENTAL [address] [place] [address] Zhanna Hernandez 10/03/2025 10:00 AM EST Office Visit [facility] [address] [place] [address] Aaron Pisano MD [address] [place] [address] 10/25/2025 11:00 AM EDT Clinical Support [facility] [address] [place] [address] Altagracia Mancilla RN [address] [place] [address] documented as of this encounter Goals Goal [...] documented as of this encounter Care Teams Painter And Body Mechanic Apprentice Relationship Specialty Start Date End Date Aaron Pisano MD [address] [place] [address] PCP - General Internal Medicine 05/10/14 Antonietta Lim Leaf StamperTechnical Document Writer 09/18/24 documented as of this encounter
--- OUTSIDE RECORDS SUMMARY | 2025-08-06 18:36 | XMS_ITS | Encounter Summary ---
Author Organization [employer] Address 75 [facility] 7t [place] [address] Care Team Providers Care Typewriter Aligner Name Role Phone Aaron Pisano MD Primary Care Provide r Reason for Visit * Reason Onset Date Comments Med Refill 05/02/2025 Encounter Details Date Type Department Care Team (Late st Contact Info) Description 05/02/2025 Refill [facility] [address] [place] [address] Aaron Pisano MD [address] [facility] [place] [address] Chronic midline low back pain without sciatica [...] [facility] ADULT DENTAL [address] [place] [address] Zhanna Hernandez 10/03/2025 10:00 AM EST Office Visit [facility] MEDICINE [address] [place] [address] Aaron Pisano MD [address] [place] [address] 10/25/2025 11:00 AM EDT Clinical Support [facility] MEDICINE [address] [place] [address] Altagracia Mancilla RN [address] [place] [address] documented as of this encounter Goals Goal [...] documented as of this encounter Care Teams Typewriter Aligner Relationship Specialty Start Date End Date Aaron Pisano MD [address] [place] [address] PCP - General Internal Medicine 05/10/14 Antonietta Lim Medical Equipment SalesFinancing Analyst 09/18/24 documented as of this encounter
== END 2025-08-06 15:36 | disposition home or self-care (01) ==
LOC: HO.HGI 15:05
PROVIDERS: PCP Internal Medicine; Visit Provider Nurse Practitioner Family
DX: K21.9 Gastro-esophageal reflux disease without esophagitis (principal); K59.1 Functional diarrhea; R10.84 Generalized abdominal pain; K91.5 Postcholecystectomy syndrome
CPT/HCPCS: 99214

== ENCOUNTER → 2025-08-06 15:04 | Outpatient (BNVA) | payer MEDICAID, SELFPAY | PROVIDERS: PCP Internal Medicine; Visit Provider Nurse Practitioner Family | DX: K21.9 Gastro-esophageal reflux disease without esophagitis (principal); K91.5 Postcholecystectomy syndrome; K59.00 Constipation, unspecified; K52.9 Noninfective gastroenteritis and colitis, unspecified; R10.84 Generalized abdominal pain | CPT/HCPCS: 99212 ==